=== PATIENT | female | born 1960 | race Two or more races ===

== ENCOUNTER 2022-10-21 07:20 | Outpatient (OUT) | payer OTHER, SELFPAY ==
--- NOTE | 2022-10-21 07:29 | MM_ITS ---
Patient: YOUSUF ANGUIANO V. Exam Date: 10/21/2022 : 1960 Gender:F Ordering : DR NELLY ZEE M.D. Admission #: [id number] Family : Order #: [id number] CLICK HERE TO VIEW EXAM RADIOLOGY REPORT PROCEDURE: MM TOMOSYNTHESIS SCREENING BI COMPARISON: MG MAMM SCREEN 3D HOLLY CAD, 10/16/2020. MG MAMM SCREEN 3D HOLLY CAD, 10/20/2021. INDICATIONS: Screening Calculator Name NCI Breast Cancer Risk Assessment Tool 5 Year Breast Cancer Risk 0.90% Lifetime Breast Cancer Risk 4.30% Personal Breast Cancer No Personal Ovarian Cancer No Treatments None Family Cancers None LOCATION: [facility] BREAST COMPOSITION: Scattered areas fibroglandular density. FINDINGS: DIAGNOSTIC CATEGORY 1--NEGATIVE. NO CHANGE FROM COMPARISON ASSESSMENT. Scattered benign-appearing nodules are present. Scattered benign-appearing calcifications are present. Scattered benign-appearing lymph nodes are present. RIGHT BREAST: No significant suspicious finding. LEFT BREAST: No significant suspicious finding. RECOMMENDATIONS: ROUTINE MAMMOGRAM AND CLINICAL EVALUATION IN 12 MONTHS. PLEASE NOTE: A NORMAL MAMMOGRAM DOES NOT EXCLUDE THE POSSIBILITY OF BREAST CANCER. A CLINICALLY SUSPICIOUS PALPABLE LUMP SHOULD BE BIOPSIED. Dictated by: Julian Casey MD on 10/21/2022 at 09:03 Approved by: Julian Casey MD on 10/21/2022 at 09:10
== END 2022-10-21 07:21 | disposition home or self-care (01) ==
LOC: MAMMO 07:23
PROVIDERS: PCP Family Medicine; Visit Provider Family Medicine
DX: Z12.31 Encounter for screening mammogram for malignant neoplasm of breast (principal)
CPT/HCPCS: 77063; 77067

== ENCOUNTER 2023-08-12 16:51 | Emergency (ER) | payer MEDICARE, SELFPAY ==
[2023-08-12] VITALS (25 sets, daily range): BP systolic 71–126; BP diastolic 47–83; PULSE 81–97; TEMP 36.6; O2SAT 95–99; BMI 27.4
--- NOTE | 2023-08-12 17:23 | ECG_ITS ---
The [facility] Test Date: 2023-08-12 Pat Name: YOUSUF ANGUIANO Department: Room: - Gender: Female Curing Supervisor: : 1960 Requested By: NELLY ZEE Order Number: [id number] Reading MD: TAMMY BAEZ Measurements Intervals [place] Rate: 85 P: 25 [place]: 152 QRS: -42 QRSD: 86 T: 28 QT: 372 QTc: 414 Interpretive Statements 1100 Sinus rhythm 7200 Abnormal left axis deviation 8003 Consistent with pulmonary disease 9150 abnormal ECG Compared to ECG 09/13/2020 16:37:13 No significant changes Electronically Signed On 08-13-2023 7:30:21 EDT by TAMMY BAEZ
--- NOTE | 2023-08-12 17:23 | CT_ITS ---
The [address] [address] Patient Name: YOUSUF ANGUIANO MRN: [id number] date: 1960 Sex: F Assigned Patient Location: ER Current Patient Location: .[facility] Accession/Order Number: [id number] Exam Date: 08/12/2023 17:37 Report Date: 08/12/2023 18:26 At the request of: YOGESH HAQUE Procedure: CT head/brain wo con EXAM: NONCONTRAST CT SCAN OF THE HEAD HISTORY: Headache. TECHNIQUE: Multiple axial images are taken from the level the vertex down to the base of the skull without the use of IV contrast. Images were then reconstructed in the sagittal and coronal planes. This exam was performed according to our departmental dose-optimization program which includes use of Automated Exposure Control, adjustment of the mA and/or kV according to patient size and/or use of iterative reconstruction technique. COMPARISON: None. FINDINGS: Brain Parenchyma: No intracranial mass. No intracranial hemorrhage. Zuniga-white matter within expected limits of normal for patient's age. Posterior fossa: Normal. Midline shift: None Extra-axial fluid collection: None Ventricles: Normal. Mastoid air cells: Normal. Sinuses: Normal. Cranium: No depressed skull fracture. Soft tissues: Normal. Orbits: Orbits demonstrate postoperative changes from prior cataract resection with prosthetic lens implant. CT/CT head/brain wo con IMPRESSION: 1. No noncontrast CT evidence for acute intracranial pathology. 2. If patient continues to have symptoms or if there remains any further clinical concern, MRI may help better delineate if clinically indicated. Electronically authenticated by: CHERIE ROUSE Date: 08/12/2023 18:26
--- NOTE | 2023-08-12 17:24 | ED.SYNCOPE1 ---
HPI - Syncope General Chief Complaint: Dizziness Stated Complaint: Syncope, Dizziness Time Seen by Provider: 08/12/23 16:53 Source: patient Mode of arrival: walk-in Limitations: no limitations History of Present Illness HPI narrative: 63-year-old female presents for syncopal episode. She woke up today with a generalized headache and this afternoon she states she started to get dizzy and felt like she was going to pass out. She states she got herself down to the floor and then passed out for a few minutes. She did not injure herself in any way. She did not have any palpitations or vomiting or diarrhea or abdominal pain. This happened many years ago and she states she was dehydrated at that time. Related Data Home Medications ?Medication ?Instructions ?Recorded ?Confirmed albuterol sulfate 90 mcg/actuation 2 inh inhalation Q4H PRN shortness 08/12/23 08/12/23 aerosol inhaler of breath or wheezing hydrochlorothiazide 25 mg tablet 25 mg PO DAILY 08/12/23 08/12/23 levothyroxine 25 mcg tablet 25 mcg PO DAILY 08/12/23 08/12/23 montelukast 10 mg tablet 10 mg PO DAILY 08/12/23 08/12/23 pantoprazole 40 mg tablet,delayed 40 mg PO DAILY 08/12/23 08/12/23 release rosuvastatin 10 mg tablet 10 mg PO DAILY 08/12/23 08/12/23 Allergies Allergy/AdvReac Type Severity Reaction Status Date / Time No Known Drug Allergies Allergy Verified 08/12/23 17:00 Review of Systems ROS Narrative A ten point review of systems is negative except as noted above. Exam Narrative Exam Narrative: Nurses note and vital signs reviewed and patient is not hypoxic. General: The patient appears well and in no apparent distress. Patient is resting comfortably on cart. Skin: Warm, dry, no pallor noted. There is no rash noted. Head: Normocephalic, atraumatic Eye: Normal conjunctiva, no drainage, EOMI. PERRL Ears, Nose, Mouth, and Throat: oral mucosa is moist. Nares patent. Cardiovascular: Regular Rate and Rhythm Respiratory: Patient is in no distress, no accessory muscle use, lungs are clear to auscultation, no wheezing, rales or rhonchi Back: non-tender GI: no tenderness to palpation, no masses appreciated. No rebound, guarding, or rigidity noted. Musculoskeletal: The patient has no evidence of calf tenderness, no pitting edema, symmetrical pulses noted bilaterally Neurological: A&O, normal speech; upper and lower extremity strength 5 out of 5 and symmetric Psychiatric: Cooperative Constitutional Vital Signs, click to edit/add: Last Vital Signs Temp 97.9 F 08/12/23 16:55 Pulse 83 08/12/23 16:55 Resp 18 08/12/23 16:55 BP 122/80 08/12/23 16:55 Pulse Ox 97 08/12/23 16:55 O2 Del Method Room Air 08/12/23 16:55 Course Vital Signs Vital signs: Vital Signs Temperature 97.9 F 08/12/23 16:55 Pulse Rate 83 08/12/23 16:55 Respiratory Rate 18 08/12/23 16:55 Blood Pressure 122/80 08/12/23 16:55 Pulse Oximetry 97 08/12/23 16:55 Oxygen Delivery Method Room Air 08/12/23 16:55 Temperature 97.9 F 08/12/23 16:55 Pulse Rate 83 08/12/23 16:55 Respiratory Rate 18 08/12/23 16:55 Blood Pressure 122/80 08/12/23 16:55 Pulse Oximetry 97 08/12/23 16:55 Oxygen Delivery Method Room Air 08/12/23 16:55 MDM - Syncope MDM Narrative Medical decision making narrative: The patient presented with a syncopal episode. She is in sinus rhythm. Potassium is low and she was ordered both oral and IV potassium. The patient is being observed and signed out to Dr. Culp. Differential Diagnosis Differential diagnosis: Likely syncope due to orthostatic hypotension, vasovagal syncope and dehydration Lab Data Attestation: I reviewed the patient's lab results. Labs: Lab Results 08/12/23 Range/Units 17:10 WBC 8.4 (4.0-11.0) 10^3/uL RBC 4.27 (4.20-5.40) 10^6/uL Hgb 12.6 (12.0-16.0) g/dL Hct 39.1 (36.0-48.0) % MCV 91.6 (81.0-99.0) fL MCH 29.5 (26.7-34.0) pg MCHC 32.2 (29.9-35.2) g/dL RDW 14.1 (11.0-15.0) % Plt Count 350 (150-450) 10^3/uL MPV 9.2 L (9.5-13.5) fL Neut % (Auto) 72.8 (43.0-75.0) % Lymph % (Auto) 18.6 L (20.5-60.0) % [place] % (Auto) 7.0 (1.7-12.0) % Eos % (Auto) 1.3 (0.9-7.0) % Baso % (Auto) 0.2 (0.2-2.0) % Neut # (Auto) 6.1 (1.4-6.5) 10^3/uL Lymph # (Auto) 1.6 (1.2-3.8) 10^3/uL [place] # (Auto) 0.6 (0.3-0.8) 10^3/uL Eos # (Auto) 0.1 (0.0-0.7) 10^3/uL Baso # (Auto) 0.0 (0.0-0.1) 10^3/uL Abs Immat Gran (auto) 0.01 (0.00-0.03) 10^3/uL Imm/Tot Granulo (auto) 0.1 (0.0-0.5) % Sodium 138 (136-145) mmol/L Potassium 2.5 L* (3.5-5.1) mmol/L Chloride 99 (98-107) mmol/L Carbon Dioxide 30.3 (21.0-32.0) mmol/L Anion Gap 11.2 BUN 14.0 (7.0-18.0) mg/dL Creatinine 1.19 H (0.55-1.02) mg/dL Est GFR ( Amer) 55 L (>=60) Est GFR (Non-Af Amer) 46 L (>=60) BUN/Creatinine Ratio 11.8 Glucose 110 H (74-106) mg/dL Calcium 9.0 (8.5-10.1) mg/dL Troponin I High Sens 4.4 (4.0-51.3) pg/mL ECG Data Attestation: I personally reviewed and interpreted this ECG as follows: (EKG on my interpretation shows normal sinus rhythm without acute change and rate of 85) Discharge Plan Discharge Patient Disposition: Still a Patient
[2023-08-12 17:30] LABS: Basophils Percent Auto 0.2 % (0.2-2.0); Eosinophils Absolute Auto 0.1 10^3/uL (0.0-0.7); Eosinophils Percent Auto 1.3 % (0.9-7.0); Hematocrit 39.1 % (36.0-48.0); Hemoglobin 12.6 g/dL (12.0-16.0); Immature Granulocytes Abs Auto 0.01 10^3/uL (0.00-0.03); Immature Granulocytes Pct Auto 0.1 % (0.0-0.5); Lymphocytes Absolute Auto 1.6 10^3/uL (1.2-3.8); Lymphocytes Percent Auto 18.6 % (20.5-60.0); Mean Corpuscular HGB Conc 32.2 g/dL (29.9-35.2); Mean Corpuscular Hemoglobin 29.5 pg (26.7-34.0); Mean Corpuscular Volume 91.6 fL (81.0-99.0); Mean Platelet Volume 9.2 fL (9.5-13.5); Monocytes Absolute Auto 0.6 10^3/uL (0.3-0.8); Neutrophils Absolute Auto 6.1 10^3/uL (1.4-6.5); Neutrophils Percent Auto 72.8 % (43.0-75.0); Platelet Count 350 10^3/uL (150-450); Red Blood Count 4.27 10^6/uL (4.20-5.40); Red Cell Distribution Width 14.1 % (11.0-15.0); White Blood Count 8.4 10^3/uL (4.0-11.0)
[2023-08-12 17:42] LABS: Anion Gap 11.2; BUN Creatinine Ratio 11.8; Carbon Dioxide 30.3 mmol/L (21.0-32.0); Chloride 99 mmol/L (98-107); Estimated GFR (African America 55 (>=60); Estimated GFR (Non-African Ame 46 (>=60); Glucose 110 mg/dL (74-106); Sodium 138 mmol/L (136-145); Troponin I High Sensitivity 4.4 pg/mL (4.0-51.3)
[2023-08-12 17:44] LABS: Potassium 2.5 mmol/L (3.5-5.1)
[2023-08-12] MEDS: 0.9 % SODIUM CHLORIDE 1,000 ML 1000 ML IV (17:49)
[2023-08-12] MEDS: POTASSIUM CHLORIDE IN WATER 10 MEQ/100 ML PIGGYBACK 100 MEQ IV ×4 (18:34→22:07)
[2023-08-12] MEDS: POTASSIUM BICARBONATE/CIT 25 MEQ TABLET EFF 50 MEQ PO (18:35)
[2023-08-12] MEDS: 0.9 % SODIUM CHLORIDE 1,000 ML 150 ML IV (18:49)
[2023-08-12 19:11] LABS: Bilirubin Urine NEGATIVE (NEGATIVE); Blood Urine NEGATIVE (NEGATIVE); Clarity Urine CLEAR (CLEAR); Color Urine LT. YELLOW (YELLOW); Glucose Urine UA NEGATIVE (NEGATIVE); Ketones Urine NEGATIVE (NEGATIVE); Leukocyte Esterase Urine SMALL (NEGATIVE); Nitrite Urine NEGATIVE (NEGATIVE); Protein Urine NEGATIVE (NEG/TRACE); Specific Gravity Urine <=1.005 (1.005-1.025); Urobilinogen Urine 0.2 EU/dL (0.2-1.0); pH Urine 6.5 (5.0-9.0)
[2023-08-12 19:19] LABS: Bacteria Urine NONE SEEN #/HPF (NONE SEEN); Cast Seen? NONE SEEN #/LPF (NONE SEEN); Crystals Seen? None Seen #/HPF (None Seen); Mucus Urine NONE SEEN (NONE SEEN); RBC Urine 0-2 #/HPF (0-2); Squamous Epithelial Cell Urine FEW #/LPF (NONE/RARE); Urine Culture Indicated NO; WBC Urine 0-2 #/HPF (NONE SEEN)
[2023-08-12] MEDS: 0.9 % SODIUM CHLORIDE 1,000 ML 999 ML IV (21:22)
== END 2023-08-13 00:09 | disposition home or self-care (01) ==
PROVIDERS: Emergency Medicine; Emergency Provider Internal Medicine; PCP Family Medicine
DX: R55 Syncope and collapse (principal); E86.0 Dehydration; E87.6 Hypokalemia; Z79.899 Other long term (current) drug therapy; Z79.890 Hormone replacement therapy
CPT/HCPCS: 36415; 70450; 80048; 81001; 84484; 85025; 93005; 96361; 96365; 96366; 99285

== ENCOUNTER 2023-10-27 06:44 | Outpatient (OUT) | payer MEDICARE, SELFPAY ==
--- NOTE | 2023-10-27 06:46 | MM_ITS ---
Patient Name: YUOSUF ANGUIANO MR#: [id number] : 1960 Exam Date: 10/27/2023 Ordering Doctor: DR NELLY ZEE M.D. RADIOLOGY REPORT PROCEDURE: MM TOMOSYNTHESIS SCREENING BI COMPARISON: MM TOMOSYNTHESIS SCREENING BI, 10/21/2022. MG MAMM SCREEN 3D HOLLY CAD, 10/20/2021. INDICATIONS: Screening Calculator Name NCI Breast Cancer Risk Assessment Tool 5 Year Breast Cancer Risk 0.90% Lifetime Breast Cancer Risk 4.20% Personal Breast Cancer No Personal Ovarian Cancer No Treatments None Family Cancers None LOCATION: [facility] BREAST COMPOSITION: There are scattered areas of fibroglandular density. FINDINGS: DIAGNOSTIC CATEGORY 1--NEGATIVE. NO CHANGE FROM COMPARISON ASSESSMENT. Scattered benign-appearing nodules are present. Scattered benign-appearing calcifications are present. Scattered benign-appearing lymph nodes are present. RIGHT BREAST: No significant suspicious finding. LEFT BREAST: No significant suspicious finding. RECOMMENDATIONS: ROUTINE MAMMOGRAM AND CLINICAL EVALUATION IN 12 MONTHS. PLEASE NOTE: A NORMAL MAMMOGRAM DOES NOT EXCLUDE THE POSSIBILITY OF BREAST CANCER. A CLINICALLY SUSPICIOUS PALPABLE LUMP SHOULD BE BIOPSIED. Dictated by: Julian Casey MD on 10/30/2023 at 07:20 Approved by: Julian Casey MD on 10/30/2023 at 07:21
== END 2023-10-27 06:45 | disposition home or self-care (01) ==
LOC: MAMMO 06:44
PROVIDERS: PCP Family Medicine; Visit Provider Family Medicine
DX: Z12.31 Encounter for screening mammogram for malignant neoplasm of breast (principal)
CPT/HCPCS: 77063; 77067

== ENCOUNTER 2023-11-10 06:59 | Outpatient (OUT) | payer MEDICARE, SELFPAY ==
--- NOTE | 2023-11-10 07:05 | MR_ITS ---
The [address] [address] Patient Name: YOUSUF ANGUIANO MRN: [id number] date: 1960 Sex: F Assigned Patient Location: MRI Current Patient Location: Accession/Order Number: [id number] Exam Date: 11/10/2023 07:05 Report Date: 11/13/2023 08:09 At the request of: DORITA DYE Procedure: MR lumbar spine wo con EXAMINATION: MR lumbar spine wo con HISTORY: inflammation of right SI joint M46.1 COMPARISON: No relevant comparison available. TECHNIQUE: A variety of imaging planes and parameters were utilized for visualization of suspected pathology. FINDINGS: For the purposes of numbering, sagittal T2 image # 8 extends from the T10 vertebral body superiorly to the S4 level inferiorly. PARASPINAL AREA: Normal with no visible mass. BONES: Normal alignment of the lumbar vertebral bodies with no acute fracture, dislocation or bone edema CORD/CAUDA EQUINA: Normal caliber, contour, and signal intensity. DISC LEVELS: 12-L1: No significant disc/facet abnormality, spinal stenosis, or foraminal stenosis. L1-L2: No significant disc/facet abnormality, spinal stenosis, or foraminal stenosis. L2-L3: Early degenerative disc disease is present without focal protrusion or neural impingement. L3-L4: No significant disc/facet abnormality, spinal stenosis, or foraminal stenosis. L4-L5: Early degenerative disc disease is present without focal protrusion or neural impingement. L5-S1: Early degenerative disc disease is present without focal protrusion or neural impingement. MR/MR lumbar spine wo con IMPRESSION: Mild discogenic changes with no no disc bulge or herniation, now significant central or foraminal stenosis Electronically authenticated by: KINGSLEY BURNETTE Date: 11/13/2023 08:09
== END 2023-11-10 07:00 | disposition home or self-care (01) ==
LOC: MRI 06:59
PROVIDERS: PCP Family Medicine; Visit Provider Nurse Practitioner Adult Health
DX: M46.1 Sacroiliitis, not elsewhere classified (principal); R20.9 Unspecified disturbances of skin sensation
CPT/HCPCS: 72148

== ENCOUNTER 2024-01-16 08:35 | Outpatient (OUT) | payer MEDICARE, SELFPAY ==
[2024-01-16 08:53] LABS: Basophils Percent Auto 0.4 % (0.2-2.0); Eosinophils Absolute Auto 0.1 10^3/uL (0.0-0.7); Eosinophils Percent Auto 1.8 % (0.9-7.0); Hematocrit 40.3 % (36.0-48.0); Hemoglobin 12.7 g/dL (12.0-16.0); Immature Granulocytes Abs Auto 0.01 10^3/uL (0.00-0.03); Immature Granulocytes Pct Auto 0.1 % (0.0-0.5); Lymphocytes Absolute Auto 2.4 10^3/uL (1.2-3.8); Lymphocytes Percent Auto 32.9 % (20.5-60.0); Mean Corpuscular HGB Conc 31.5 g/dL (29.9-35.2); Mean Platelet Volume 8.6 fL (9.5-13.5); Monocytes Absolute Auto 0.4 10^3/uL (0.3-0.8); Neutrophils Absolute Auto 4.3 10^3/uL (1.4-6.5); Neutrophils Percent Auto 58.8 % (43.0-75.0); Platelet Count 386 10^3/uL (150-450); Red Blood Count 4.24 10^6/uL (4.20-5.40); Red Cell Distribution Width 14.3 % (11.0-15.0); White Blood Count 7.4 10^3/uL (4.0-11.0)
[2024-01-16 09:24] LABS: Alanine Aminotransferase 24 U/L (14-59); Albumin Globulin Ratio 0.8; Albumin Level 3.3 g/dL (3.4-5.0); Alkaline Phosphatase 76 U/L (46-116); Anion Gap 7.2; Aspartate Amino Transferase 20 U/L (15-37); BUN Creatinine Ratio 10.7; Bilirubin Total 0.4 mg/dL (0.2-1.0); Calcium 9.3 mg/dL (8.5-10.1); Carbon Dioxide 33.6 mmol/L (21.0-32.0); Chloride 100 mmol/L (98-107); Chol HDL Ratio 2.3; Cholesterol 185 mg/dL (<=200); Estimated GFR (African America >60 (>=60); Estimated GFR (Non-African Ame 54 (>=60); Globulin 4.2 g/dL; Glucose 113 mg/dL (74-106); HDL Cholesterol 80 mg/dL (40-60); Sodium 138 mmol/L (136-145); TSH W/ REFLEX FT4 1.543 uIU/mL (0.358-3.740); Total Protein 7.5 g/dL (6.4-8.2); Triglycerides 109 mg/dL (<=150); VLDL CHOLESTEROL 21.8 mg/dL
[2024-01-16 10:12] LABS: Potassium 2.8 mmol/L (3.5-5.1)
[2024-01-17 05:08] LABS: HCV Ab Non Reactive (Non Reactive)
== END 2024-01-16 08:36 | disposition home or self-care (01) ==
LOC: LAB 08:35
PROVIDERS: PCP Family Medicine; Visit Provider Physician Assistant
DX: Z00.00 Encounter for general adult medical examination without abnormal findings (principal); E03.9 Hypothyroidism, unspecified; I12.9 Hypertensive chronic kidney disease with stage 1 through stage 4 chronic kidney disease, or unspecified chronic kidney disease; E78.00 Pure hypercholesterolemia, unspecified; N18.31 Chronic kidney disease, stage 3a
CPT/HCPCS: 36415; 80053; 80061; 84443; 85025; 87522

== ENCOUNTER 2024-01-25 07:40 | Outpatient (OUT) | payer MEDICARE, SELFPAY ==
--- OUTSIDE RECORDS SUMMARY | 2024-01-25 07:41 | XMS_ITS | CCD ---
Author Organization [facility] Care Team Providers Care Adobe Layer Helper Name Role Phone YAYO, DR VILLEGAS Primary Care Unavailable HEMMER, DR DARRYL Thomas Admitting Unavailable HEMMER, DR DARRYL Thomas Attending Unavailable YAYO, DR VILLEGAS Primary Care Unavailable YAYO, DR VILLEGAS Admitting Unavailable YAYO, DR VILLEGAS Attending Unavailable YAYO, DR VILLEGAS Consulting Unavailable WEST, DR KINGSLEY Pierson Consulting Unavailable YAYO, DR VILLEGAS Primary Care Unavailable YAYO, DR VILLEGAS Admitting Unavailable YAYO, DR VILLEGAS Attending Unavailable YYAO, DR VILLEGAS Consulting Unavailable HEMMER, DR DARRYL Thomas Attending Unavailable HEMMER, DR DARRYL Thomas Admitting Unavailable YAYO, DR VILLEGAS Primary Care Unavailable HENRIKZENAIDA Attending Unavailable ERROL BURGESS Attending Unavailable DORITA DYE Attending Unavailable ERROL BURGESS Referring Unavailable SANDEEP HARRELL Attending Unavailable DORITA DYE Attending Unavailable DARRYL MCDERMOTT Attending Unavailable Donaldo Mills Attending Unavailable Donaldo Mills Referring Unavailable Problems Active Problems Problem Classification Problem Date Documented Da te Episodic/Chronic Cataract (1 source) Presence of intraocular lens; Translations: [Pseudophakia] Onset: 01-19-2024 Chronic Other screening for suspected conditions (not mental disorders or infectious disease) (4 sources) Encounter for screening mammogram for malignant neoplasm of breast; Translations: [ENC SCR MAMMO MALIG NEOPLASM BREAST] Onset: 10-20-2021 Episodic Residual codes; unclassified (4 sources) Obstructive sleep apnea (adult) (pediatric); Translations: [OBSTRUCTIVE SLEEP APNEA] Onset: 03-22-2021 Chronic Retinal detachments; defects; vascular occlusion; and retinopathy (1 source) Pigmentary retinal dystrophy; 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 Exam Date: 10/20/2021 : 1960 Gender:F Ordering : DR NELLY ZEE M.D. Admission #: [id number] Family : Order #: [id number] CLICK HERE TO VIEW EXAM RADIOLOGY REPORT PROCEDURE: MAMMOGRAM SCREENING 3D BILATERAL CAD COMPARISON: MG MAMM SCREEN HOLLY W CAD, 10/15/2019. MG MAMM SCREEN 3D HOLLY CAD, 10/16/2020. INDICATIONS: Screening mammography Calculator Name NCI Breast Cancer Risk Assessment Tool 5 Year Breast Cancer Risk 0.90% Lifetime Breast Cancer Risk 4.40% Personal Breast Cancer No Personal Ovarian Cancer No Treatments None Family Cancers None LOCATION: [facility] BREAST COMPOSITION: Scattered areas fibroglandular density. FINDINGS: DIAGNOSTIC CATEGORY 1--NEGATIVE. NO CHANGE FROM COMPARISON ASSESSMENT. Scattered benign-appearing nodules are present. Scattered benign-appearing calcifications are present. Scattered benign-appearing lymph nodes are present. RIGHT BREAST: No significant suspicious finding. LEFT BREAST: No significant suspicious finding. RECOMMENDATIONS: ROUTINE MAMMOGRAM AND CLINICAL EVALUATION IN 12 MONTHS. PLEASE NOTE: A NORMAL MAMMOGRAM DOES NOT EXCLUDE THE POSSIBILITY OF BREAST CANCER. A CLINICALLY SUSPICIOUS PALPABLE LUMP SHOULD BE BIOPSIED. Dictated by: Kingsley Casey MD on 10/20/2021 at 09:49 Approved by: Kingsley Casey MD on 10/20/2021 at 09:58 Normal [facility] TSH w/ Reflex to Free T4on 0 09-07-2021 TSH 1.990 uIU/mL Normal 0.400-4.500 [facility] [employer] Comment on above: Performed By: #### T SH reflex FT4 #### [facility] [address] [place], [place] [id number] Complete Blood Count with Au to Diffon 04-05-2022 Basophils (Bld) [#/Vol] 0.05 10*3/uL Normal 0.00-0.20 [facility] [employer] Comment on above: Performed By: #### L IPD, TSH reflex FT4, CMP, FT4, CBCAD #### [facility] [address], [place] [id number] Basophils/100 WBC (Bld) 0.9 % Normal [facility] [employer] Comment on above: Performed By: #### L IPD, TSH reflex FT4, CMP, FT4, CBCAD #### [facility] [address], [place] [id number] Eosinophils (Bld) [#/Vol] 0.41 10*3/uL Normal 0.02-0.50 [facility] [employer] Comment on above: Performed By: #### L IPD, TSH reflex FT4, CMP, FT4, CBCAD #### [facility] [address], [place] [id number] Eosinophils/100 WBC (Bld) 7.2 % Normal [facility] [employer] Comment on above: Performed By: #### L IPD, TSH reflex FT4, CMP, FT4, CBCAD #### [facility] [address], [place] [id number] Erythrocyte distribution width (RBC) [Ratio] 13.4 % Normal 11.0-15.0 [facility] [employer] Comment on above: Performed By: #### L IPD, TSH reflex FT4, CMP, FT4, CBCAD #### [facility] [address], [place] [id number] Hematocrit (Bld) [Volume fraction] 41.2 % Normal 35.0-47.0 [facility] [employer] Comment on above: Performed By: #### L IPD, TSH reflex FT4, CMP, FT4, CBCAD #### [facility] [address], [place] [id number] Hemoglobin (Bld) [Mass/Vol] 13.1 g/dL Normal 11.6-15.5 [facility] Comment on above: Performed By: #### L IPD, TSH reflex FT4, CMP, FT4, CBCAD #### [facility] [address], [place] [id number] Lymphocytes (Bld) [#/Vol] 1.8 10*3/uL Normal 0.9-3.9 [facility] Comment on above: Performed By: #### L IPD, TSH reflex FT4, CMP, FT4, CBCAD #### [facility] [address], [place] [id number] Lymphocytes/100 WBC (Bld) 31.8 % Normal [facility] Comment on above: Performed By: #### L IPD, TSH reflex FT4, CMP, FT4, CBCAD #### [facility] [address], [place] [id number] MCH (RBC) [Entitic mass] 29.3 pg Normal 27.0-33.0 [facility] Comment on above: Performed By: #### L IPD, TSH reflex FT4, CMP, FT4, CBCAD #### [facility] [address], [place] [id number] MCHC (RBC) [Mass/Vol] 31.8 g/dL Low 32.0-36.0 [facility] Comment on above: Performed By: #### L IPD, TSH reflex FT4, CMP, FT4, CBCAD #### [facility] [address], [place] [id number] MCV (RBC) [Entitic vol] 92 fL Normal 80-100 [facility] Comment on above: Performed By: #### L IPD, TSH reflex FT4, CMP, FT4, CBCAD #### [facility] [address], [place] [id number] Monocytes (Bld) [#/Vol] 0.5 10*3/uL Normal 0.2-0.9 [facility] Comment on above: Performed By: #### L IPD, TSH reflex FT4, CMP, FT4, CBCAD #### [facility] [address], [place] [id number] Monocytes/100 WBC (Bld) 8.1 % Normal [facility] Comment on above: Performed By: #### L IPD, TSH reflex FT4, CMP, FT4, CBCAD #### [facility] [address], [place] [id number] Neutrophils (Bld) [#/Vol] 3.0 10*3/uL Normal 1.5-7.8 [facility] Comment on above: Performed By: #### L IPD, TSH reflex FT4, CMP, FT4, CBCAD #### [facility] [address], [place] [id number] Neutrophils/100 WBC (Bld) 51.6 % Normal [facility] Comment on above: Performed By: #### L IPD, TSH reflex FT4, CMP, FT4, CBCAD #### [facility] [address], [place] [id number] Platelet mean volume (Bld) [Entitic vol] 9.50 fL Normal 7.50-12.50 [facility] Comment on above: Performed By: #### L IPD, TSH reflex FT4, CMP, FT4, CBCAD #### [facility] [address], [place] [id number] Platelets (Bld) [#/Vol] 367 10*3/uL Normal 140-400 [facility] Comment on above: Performed By: #### L IPD, TSH reflex FT4, CMP, FT4, CBCAD #### [facility] [address], [place] [id number] RBC (Bld) [#/Vol] 4.47 10*6/uL Normal 3.90-5.20 [facility] Comment on above: Performed By: #### L IPD, TSH reflex FT4, CMP, FT4, CBCAD #### [facility] [address], [place] [id number] RDW-SD 45.9 fL Normal 37.0-50.0 [facility] Comment on above: Performed By: #### L IPD, TSH reflex FT4, CMP, FT4, CBCAD #### [facility] [address], [place] [id number] WBC (Bld) [#/Vol] 5.7 10*3/uL Normal 3.8-11.0 [facility] Comment on above: Performed By: #### L IPD, TSH reflex FT4, CMP, FT4, CBCAD #### [facility] [address], [place] [id number] Comprehensive Metabolic Pane félix 07-27-2021 Albumin [Mass/Vol] 4.5 g/dL Normal 3.6-5.1 [facility] Comment on above: Performed By: #### L IPD, TSH reflex FT4, CMP, FT4, CBCAD #### [facility] [address], [place] [id number] Albumin/Globulin [Mass ratio] 1.7 {ratio} Normal 1.0-2.5 [facility] Comment on above: Performed By: #### L IPD, TSH reflex FT4, CMP, FT4, CBCAD #### [facility] [address], [place] [id number] ALP [Catalytic activity/Vol] 89 U/L Normal 35-119 [facility] Comment on above: Performed By: #### L IPD, TSH reflex FT4, CMP, FT4, CBCAD #### [facility] [address], [place] [id number] ALT [Catalytic activity/Vol] 27 U/L Normal 6-33 [facility] Comment on above: Result Comment: 03/24 Female reference range changed. Performed By: #### L IPD, TSH reflex FT4, CMP, FT4, CBCAD #### [facility] [address], [place] [id number] Anion gap [Moles/Vol] 18 mmol/L Normal 12-20 [facility] Comment on above: Result Comment: Effe ctive 04/29/2019 reference range changed. Performed By: #### L IPD, TSH reflex FT4, CMP, FT4, CBCAD #### [facility] [address], [place] [id number] AST [Catalytic activity/Vol] 25 U/L Normal 9-34 [facility] Comment on above: Performed By: #### L IPD, TSH reflex FT4, CMP, FT4, CBCAD #### [facility] [address], [place] [id number] BUN/CREA 22 Ratio Normal 6-22 [facility] Comment on above: Performed By: #### L IPD, TSH reflex FT4, CMP, FT4, CBCAD #### [facility] [address], [place] [id number] Calcium [Mass/Vol] 9.5 mg/dL Normal 8.6-10.2 [facility] Comment on above: Performed By: #### L IPD, TSH reflex FT4, CMP, FT4, CBCAD #### [facility] [address], [place] [id number] Chloride [Moles/Vol] 102 mmol/L Normal 98-107 [facility] Comment on above: Performed By: #### L IPD, TSH reflex FT4, CMP, FT4, CBCAD #### [facility] [address], [place] [id number] CO2 [Moles/Vol] 26 mmol/L Normal 20-31 [facility] Comment on above: Performed By: #### L IPD, TSH reflex FT4, CMP, FT4, CBCAD #### [facility] [address], [place] [id number] Creatinine [Mass/Vol] 1.0 mg/dL Normal 0.6-1.4 [facility] Comment on above: Performed By: #### L IPD, TSH reflex FT4, CMP, FT4, CBCAD #### [facility] [address], [place] [id number] eGFRAA 72 mL/min/1.73m2 Normal >60 [facility] Comment on above: Performed By: #### L IPD, TSH reflex FT4, CMP, FT4, CBCAD #### [facility] [address], [place] [id number] eGFRNAA 60 mL/min/1.73m2 Low >60 [facility] Comment on above: Performed By: #### L IPD, TSH reflex FT4, CMP, FT4, CBCAD #### [facility] [address], [place] [id number] Globulin (S) [Mass/Vol] 2.6 g/dL Normal 1.9-3.7 [facility] Comment on above: Performed By: #### L IPD, TSH reflex FT4, CMP, FT4, CBCAD #### [facility] [address], [place] [id number] Glucose [Mass/Vol] 110 mg/dL High 65-99 Carmelo patiño [place] [employer] Comment on above: Result Comment: For FASTING Glucose --- ADA reference ranges: Normal 65-99 mg/dl Prediabetes 100-125 Diabetes >/= 126 Performed By: #### L IPD, TSH reflex FT4, CMP, FT4, CBCAD #### [facility] [address], [place] [id number] Potassium [Moles/Vol] 3.5 mmol/L Normal 3.5-5.5 [facility] [employer] Comment on above: Performed By: #### L IPD, TSH reflex FT4, CMP, FT4, CBCAD #### [facility] [address], [place] [id number] Protein [Mass/Vol] 7.1 g/dL Normal 6.1-8.1 Carmelo patiño [place] [employer] Comment on above: Performed By: #### L IPD, TSH reflex FT4, CMP, FT4, CBCAD #### [facility] [address], [place] [id number] Sodium [Moles/Vol] 142 mmol/L Normal 135-146 Carmelo patiño [place] [employer] Comment on above: Performed By: #### L IPD, TSH reflex FT4, CMP, FT4, CBCAD #### [facility] [address], [place] [id number] TBIL <0.3 Normal [facility] [employer] Comment on above: Performed By: #### L IPD, TSH reflex FT4, CMP, FT4, CBCAD #### [facility] [address], [place] [id number] Urea nitrogen [Mass/Vol] 21 mg/dL Normal 7-25 [facility] [employer] Comment on above: Performed By: #### L IPD, TSH reflex FT4, CMP, FT4, CBCAD #### [facility] [address], [place] [id number] Free T4on 07-27-2021 Free T4 [Mass/Vol] 1.17 ng/dL Normal 0.80-1.80 Carmelo patiño [place] [employer] Comment on above: Performed By: #### L IPD, TSH reflex FT4, CMP, FT4, CBCAD #### [facility] [address], [place] [id number] Lipid Panelon 07-27-2021 Cholesterol [Mass/Vol] 256 mg/dL High 125-200 [facility] Comment on above: Result Comment: Low risk < 200mg/dL Borderline risk 201-239 mg/dl High risk > or equal to 240 Performed By: #### L IPD, TSH reflex FT4, CMP, FT4, CBCAD #### [facility] [address], [place] [id number] Cholesterol in HDL [Mass/Vol] 68 mg/dL Normal >40 [facility] [employer] Comment on above: Result Comment: High Cardiovascular Risk HDL <40 mg/dL Low Cardiovascular Risk HDL > or equal to 60 mg/dl Performed By: #### L IPD, TSH reflex FT4, CMP, FT4, CBCAD #### [facility] [address], [place] [id number] Cholesterol in LDL [Mass/Vol] 170 mg/dL Normal [facility] Comment on above: Result Comment: LDL ATP III CLASSIFICATION LDL less than 100 mg/dl Optimal LDL 100-129 mg/dl Near or above optimal LDL 130-159 Borderline high LDL 160-189 High LDL greater than 189 mg/dl Very High Performed By: #### L IPD, TSH reflex FT4, CMP, FT4, CBCAD #### [facility] [address], [place] [id number] Cholesterol in VLDL [Mass/Vol] 18 mg/dL Normal [facility] Comment on above: Performed By: #### L IPD, TSH reflex FT4, CMP, FT4, CBCAD #### [facility] [address], [place] [id number] Cholesterol.total/C holesterol in HDL [Mass ratio] 4 {ratio} Normal [facility] Comment on above: Performed By: #### L IPD, TSH reflex FT4, CMP, FT4, CBCAD #### [facility] [address], [place] [id number] Triglyceride [Mass/Vol] 89 mg/dL Normal 30-150 [facility] [employer] Comment on above: Result Comment: TRIG ATPIII CLASSIFICATIONS TRIG less than 150 mg/dl Normal TRIG 150-199 mg/dl Borderline High TRIG 200-500 mg/dl High TRIG greather than 500 mg/dl Very High Performed By: #### L IPD, TSH reflex FT4, CMP, FT4, CBCAD #### [facility] [address], [place] [id number] TSH w/ Reflex to Free T4on 0 07-27-2021 FT4 reflex Free T4 Normal [facility] [employer] Comment on above: Performed By: #### L IPD, TSH reflex FT4, CMP, FT4, CBCAD #### [facility] [address], [place] [id number] TSH 6.030 uIU/mL High 0.400-4.500 [facility] [employer] Comment on above: Performed By: #### L IPD, TSH reflex FT4, CMP, FT4, CBCAD #### [facility] [address], [place] [id number] Covid-19 PCR ([facility])on SARS-CoV-2 (COVID-19) RNA IVAN+probe Ql (Unsp spec) Not detected Normal NOT DETECTED [facility] Comment on above: Result Comment: This test is not yet approved or cleared by the [place] FDA. When there are no FDA-approved or cleared tests available, and other criteria are met, FDA can make tests available under an emergency access mechanism called an Emergency Use Authorization (EUA). The EUA for this test is supported by the Mechanical Technician of Health and Human Service's (HHS's) declaration that circumstances exist to justify the emergency use of in vitro diagnostics for the detection and/or diagnosis of the virus that causes COVID-19. This EUA will remain in effect (meaning this test can be used) for the duration of the COVID-19 declaration justifying emergency of IVDs, unless it is terminated or revoked by FDA (after which the test may no longer be used). When diagnostic testing is negative, the possibility of a false negative should be considered in the context of a patient's recent exposures and the presence of clinical signs and symptoms consistent with SARS-CoV-2. Performed By: #### C VDTBH #### [facility] [address] [address] [address] Dontae Toth Encounters Encounter Date Encounter Type Care Provider Facility Start: 01-19-2024 Office outpatient vi sit 15 minutes Donaldo Mills [facility] Start: 01-19-2024 ambulatory Donaldo Loi [facility] Start: 01-10-2024 End: 01-10-2024 ambulatory DARRYL MCDERMOTT Not Available Start: 11-02-2023 End: 11-02-2023 ambulatory DORITA BETANCOURTNAGEL Not Available Start: 10-31-2023 End: 10-31-2023 ambulatory SANDEEP HARRELL Not Available Start: 10-05-2023 End: 10-05-2023 ambulatory DORITA BETANCOURTNAGEL Not Available Start: 09-14-2023 End: 09-14-2023 ambulatory ERROL BURGESS Not Available Start: 08-16-2023 End: 08-16-2023 ambulatory ZENAIDA CHESTER Not Available Start: 10-20-2021 End: 10-21-[address] NELLY ZEE Facility:[facility] Start: 03-22-2021 End: 03-23-[address] NELLY ZEE Facility:[facility] Start: 02-22-2021 End: 02-23-[address] DARRYL MCDERMOTT Facility:[facility] Start: 01-22-2021 End: 01-22-[address] NELLY ZEE Facility:[facility] Procedures Date Procedure Procedure Detail Performing Clinician Start: 01-19-2024 Computerized ophthal sharon imaging retina Donaldo Mills Start: 01-19-2024 Fundus Photos No Charge Donaldo Mills Payers Date Payer Category Payer Medicare [id number] 1960 Unknown [id number] 2.16.84 [id number] 1960 Unknown [id number] 2.16.84 [id number] 1960 Unknown [id number] 2.16.84 [id number] 1960 Unknown [id number] 2.16.84 0.1.534843.3.579.2.593 1960 Unknown [id number] 2.16.84 0.1.138331.3.579.2.9 1960 Unknown [id number] 2.16.84 0.1.228283.3.579.2.1258 1960 Unknown [id number] 2.16.84 0.1.071186.3.579.2.1258 1960 Unknown [id number] 2.16.84 0.1.136931.3.579.2.1258 1960 Unknown [id number] 2.16.84 0.1.519238.3.579.2.1258 1960 Unknown [id number] 2.16.84 0.1.862141.3.579.2.1258 1960 Unknown [id number] 2.16.840 .1.102058.3.579.2.1347 1959 Unknown [id number] Summary Purpose Family History No Family History Records FoundNo Family History Records FoundNo Family History Records FoundNo Family History Records Found Advance Directives No Advanced Directives Records FoundNo Advanced Directives Records FoundNo Advanced Directives Records FoundNo Advanced Directives Records Found Additional Source Comments INFORMATION SOURCE (unrecogn ized section and content) DATE CREATED AUTHOR 09/10/2021 [facility] dical Specialist DATE CREATED AUTHOR AUTHOR'S ORGANIZ ATION 10/23/2021 [facility] DATE CREATED AUTHOR AUTHOR'S ORGANIZ ATION 01/13/2024 [facility] dical Specialists [facility] DATE CREATED AUTHOR AUTHOR'S ORGANIZ ATION 01/24/2024 [facility] nstitute FOR RECORDS PERTAINING TO PATIENTS WHO ARE OR HAVE BEEN ENROLLED IN A CHEMICAL DEPENDENCY/SUBSTANCEABUSE PROGRAM, SOME INFORMATION MAY BE OMITTED. This clinical summary was aggregated from multiple sources. Caution should be exercised in using it in the provision of clinical care. This summary normalizes information from multiple sources, and as a consequence, information in this document may materially change the coding, format and clinical context of patient data. In addition, data may be omitted in some cases. CLINICAL DECISIONS SHOULD BE BASED ON THE PRIMARY CLINICAL RECORDS. [facility] [employer] provides no warranty or guarantee of the accuracy or completeness of information in this document.
[2024-01-25 08:52] LABS: Anion Gap 14.2; BUN Creatinine Ratio 14.4; Calcium 9.4 mg/dL (8.5-10.1); Carbon Dioxide 26.3 mmol/L (21.0-32.0); Chloride 101 mmol/L (98-107); Estimated GFR (African America 56 (>=60 mL/min/1.73m^2); Estimated GFR (Non-African Ame 46 (>=60 mL/min/1.73m^2); Glucose 108 mg/dL (74-106); Potassium 3.5 mmol/L (3.5-5.1); Sodium 138 mmol/L (136-145)
== END 2024-01-25 07:41 | disposition home or self-care (01) ==
LOC: LAB 07:40
PROVIDERS: PCP Family Medicine; Visit Provider Physician Assistant
DX: E87.6 Hypokalemia (principal)
CPT/HCPCS: 36415; 80048

== ENCOUNTER 2024-06-14 10:20 | Outpatient (OUT) | payer MEDICARE, SELFPAY ==
--- OUTSIDE RECORDS SUMMARY | 2024-06-14 10:24 | XMS_ITS | CCD ---
Author Organization [facility] Care Team Providers Care Chief Executive Or Managing Director Name Role Phone YAYO, DR VILLEGAS Primary Care Unavailable HEMMER, DR FRANNY Thomas Admitting Unavailable HEMMER, DR FARNNY Thomas Attending Unavailable YAYO, DR VILLEGAS Primary Care Unavailable YAYO, DR VILLEGAS Admitting Unavailable YAYO, DR VILLEGAS Attending Unavailable YAYO, DR VILLEGAS Consulting Unavailable WEST, DR KINGSLEY Pierson Consulting Unavailable YAYO, DR VILLEGAS Primary Care Unavailable YAYO, DR VILLEGAS Admitting Unavailable YAYO, DR VILLEGAS Attending Unavailable YAYO, DR VILLEGAS Consulting Unavailable HEMMER, DR FRANNY Thomas Attending Unavailable HEMMER, DR FRANNY Thomas Admitting Unavailable YAYO, DR VILLEGAS Primary Care Unavailable Donaldo Mills Attending Unavailable Donaldo Mills Referring Unavailable Erika Zee MD Primary Care Provider Zenaida Rangel NP Unavailable Dorita Dye NP Unavailable [phone] Erika Zee MD Primary Care Provider Sivakumar Juárez MD Attending Provider [phone] Sivakumar Juárez Attending Unavailable Franck, Sivakumar Admitting Unavailable Erika Zee Primary Care Unavailable Monday PERINATAL DIRECTOR, Bina Unavailable FRANNY MCDERMOTT Attending Unavailable ZENAIDA RANGEL Attending Unavailable ERROL BURGESS Attending Unavailable DORITA DYE Attending Unavailable ERROL BURGESS Referring Unavailable SANDEEP HARRELL Attending Unavailable DORITA DYE Attending Unavailable FRANNY MCDERMOTT Attending Unavailable FRANNY MCDERMOTT Attending Unavailable Jerry LUNA, Rosa Unavailable Medications Current Medications Medication Drug Class(es) Dates Sig (Normalized) Sig (Original) [id number] 200 actuat albuterol 0.09 mg/actuat metered dose inhaler (14 sources) beta2-Adrenergic Agonist Start: 02-08-2024 take 2 puff(s) by inhalation every four hours for wheezing albuterol HFA (Ventolin HFA) 90 mcg/act inhaler Indications: Moderate persistent asthma without complication (CMS/HCC) Inhale 2 puffs every 4 (four) hours if needed for wheezing or shortness of breath 18 g 5 02/08/2024 Active Start: 10-30-2023 take 2 puff(s) by in halation every four hours for wheezing albuterol HFA (Ventolin HFA) 90 mcg/act inhaler Indications: Moderate persistent asthma without complication (CMS/HCC) Inhale 2 puffs every 4 (four) hours if needed for wheezing or shortness of breath 18 g 5 10/30/2023 Active Start: 06-06-2019 take 2.5 mg by inhal ation every four hours as needed Albuterol Sulfate 1.25 mg/3 mL Solution For Nebulization Active 2.5 MG INHALATION Q4H as needed for Allergic Reaction June 06, 2019 12:00am busPIRone hydrochloride 5 mg oral tablet (2 sources) Start: 06-10-2024 take 1 tablet by mouth twice daily as needed for anxiety busPIRone (Buspar) 5 MG tablet Indications: Stress reaction Take 1 tablet (5 mg) by mouth 2 (two) times a day as needed (Anxiety) 60 tablet 2 06/10/2024 Active Start: 06-10-2024 take 1 tablet by hermelinda twice daily as needed for anxiety busPIRone (Buspar) 5 MG tablet Indications: Stress reaction Take 1 tablet (5 mg) by mouth 2 (two) times a day as needed (Anxiety) 60 tablet 2 06/10/2024 Active chlorhexidine gluconate 1.2 mg/ml mouthwash (13 sources) Start: 01-03-2024 chlorhexidine (Peridex) 0.12 % solution Use 15 mL in the mouth or throat if needed for wound care 01/03/2024 Active cyclobenzaprine hydrochloride 10 mg oral tablet (2 sources) Muscle Relaxant take 1 tablet by mouth three times daily as needed for muscle spasms cyclobenzaprine (Flexeril) 10 MG tablet Take 10 mg by mouth 3 (three) times a day as needed for muscle spasms Active diphenhydrAMINE hydrochloride 25 mg oral tablet (1 source) Histamine-1 Receptor Antagonist Start: 06-06-2019 take 1 tablet by mouth every eight hours as needed Diphenhydramine Hcl (Benadryl Allergy) 25 mg Tablet Active 25 MG PO Q8H as needed for Allergy Symptoms June 06, 2019 12:00am hydroCHLOROthiazide 25 mg oral tablet (14 sources) Thiazide Diuretic Start: 06-06-2019 take 1 tablet by mouth once daily hydroCHLOROthiazide (HYDRODiuril) 25 MG tablet Indications: Benign hypertension (CMS/HCC) Take 1 tablet (25 mg) by mouth Daily 100 tablet 3 02/08/2024 Active levothyroxine sodium 0.025 mg oral tablet (14 sources) l-Thyroxine Start: 03-15-2024 take 1 tablet by mouth in the morning levothyroxine (Synthroid, Levoxyl) 25 MCG tablet Indications: Acquired hypothyroidism (CMS/HCC) Take 1 tablet (25 mcg) by mouth in the morning. Take on an empty stomach.. 100 tablet 3 03/15/2024 Active Start: 10-30-2023 take 1 tablet by hermelinda th in the morning levothyroxine (Synthroid, Levoxyl) 25 MCG tablet Indications: Acquired hypothyroidism (CMS/HCC) Take 1 tablet (25 mcg) by mouth in the morning. Take on an empty stomach.. 90 tablet 1 10/30/2023 Active montelukast 10 mg oral tablet (14 sources) Leukotriene Receptor Antagonist Start: 06-06-2019 take 1 tablet by mouth at bedtime montelukast (Singulair) 10 MG tablet Indications: Seasonal allergies Take 1 tablet (10 mg) by mouth at bedtime 100 tablet 3 03/15/2024 Active pantoprazole 40 mg delayed release oral tablet (14 sources) Proton Pump Inhibitor Start: 06-06-2019 take 1 tablet by mouth once daily pantoprazole (ProtoNix) 40 MG EC tablet Indications: Gastroesophageal reflux disease without esophagitis TAKE 1 tablet Orally daily 100 tablet 3 09/06/2023 Active potassium chloride 20 meq extended release oral tablet (13 sources) Start: 01-16-2024 End: 05-29-2024 take 1 tablet by mouth once daily potassium chloride CR (K-Tab) 20 MEQ ER tablet Indications: Hypokalemia Take 1 tablet (20 mEq) by mouth Daily Do not crush, chew, or split. 90 tablet 3 05/29/2024 Active Start: 08-13-2023 End: 01-10-2024 take 1 tablet by mouth once daily potassium chloride CR (K-Tab) 20 MEQ ER tablet take 1 tablet by mouth once daily for 5 days 08/13/2023 01/10/2024 Discontinued (Other) rosuvastatin calcium 10 mg oral tablet (14 sources) HMG-CoA Reductase Inhibitor Start: 08-22-2023 take 1 tablet by mouth once daily rosuvastatin (Crestor) 10 MG tablet Indications: Elevated LDL cholesterol level (CMS/HCC) Take 1 tablet (10 mg) by mouth 1 (one) time each day at the same time 100 tablet 3 08/22/2023 Active Completed/Discontinued Medications Medication Drug Class(es) Dates Sig (Normalized) Sig (Original) ibuprofen 800 mg oral tablet (3 sources) Nonsteroidal Anti-inflammatory Drug Start: End: 4 take 1 tablet by mouth every eight hours as needed ibuprofen 800 MG tablet Take 800 mg by mouth every 8 (eight) hours if needed 01/03/2024 01/10/2024 Discontinued (Other) methylPREDNISolone 4 mg oral tablet (3 sources) Corticosteroid Start: 4 End: 4 take 1 tablet by mouth once methylPREDNISolone (Medrol Dospak) 4 MG tablets Take 4 mg by mouth 1 (one) time See administration instructions 01/03/2024 01/10/2024 Discontinued (Other) Problems Active Problems Problem Classification Problem Date Documented Da te Episodic/Chronic Anxiety disorders (17 sources) Generalized anxiety disorder; Translations: [Generalized anxiety disorder] Onset: 3 11-14-2022 Chronic Asthma (15 sources) Uncomplicated moderate persistent asthma; Translations: [Moderate persistent asthma, uncomplicated] Onset: 3 11-14-2022 Chronic Cataract (1 source) Presence of intraocular lens; Translations: [Pseudophakia] Onset: 4 Chronic Chronic kidney disease (17 sources) Chronic kidney disease stage 3A ; Translations: [Stage 3a chronic kidney disease (HCC)] Onset: 3 11-14-2022 Chronic Disorders of lipid metabolism (15 sources) Raised low density lipoprotein cholesterol; Translations: [Pure hypercholesterolemia, unspecified] Onset: 3 11-14-2022 Chronic Esophageal disorders (17 sources) Gastroesophageal reflux disease; Translations: [Gastro-esophageal reflux disease without esophagitis] Onset: 3 11-14-2022 Chronic Essential hypertension (17 sources) Benign hypertension; Translations: [Essential (primary) hypertension] Onset: 3 11-14-2022 Chronic Fluid and electrolyte disorders (19 sources) Hypokalemia; Translations: [Hypokalemia] Onset: 3 11-14-2022 Episodic Headache; including migraine (15 sources) Tension-type headache; Translations: [Tension-type headache, unspecified, not intractable] Onset: 3 11-14-2022 Chronic Other gastrointestinal disorders (1 source) Dysphagia, unspecified; Translations: [Dysphagia, unspecified] Onset: 5 Episodic Other lower respiratory disease (2 sources) Chronic cough; Translations: [Chronic cough] 04-02-2024 Episodic Other nervous system disorders (15 sources) Chronic pain; Translations: [Other chronic pain] Onset: 3 11-14-2022 Chronic Other non-traumatic joint disorders (15 sources) Joint ankylosis of the shoulder region; Translations: [Ankylosis, right shoulder] Onset: 3 11-14-2022 Chronic Other non-traumatic joint disorders (4 sources) Pain in right knee; Translations: [Pain in joint, lower leg] Onset: 5 06-10-2024 Episodic Other screening for suspected conditions (not mental disorders or infectious disease) (4 sources) Encounter for screening mammogram for malignant neoplasm of breast; Translations: [ENC SCR MAMMO MALIG NEOPLASM BREAST] Onset: 2 Episodic Other upper respiratory disease (15 sources) Seasonal allergy; Translations: [Other seasonal allergic rhinitis] Onset: 3 11-14-2022 Chronic Other upper respiratory disease (2 sources) Hoarse; Translations: [Dysphonia] 04-02-2024 Episodic Peripheral and visceral atherosclerosis (2 sources) Atherosclerosis of aorta; Translations: [Atherosclerosis of aorta] 01-10-2024 Chronic Residual codes; unclassified (4 sources) Obstructive sleep apnea (adult) (pediatric); Translations: [OBSTRUCTIVE SLEEP APNEA] Onset: 1 Chronic Residual codes; unclassified (17 sources) Obstructive sleep apnea syndrome; Translations: [Obstructive sleep apnea (adult) (pediatric)] Onset: 3 11-14-2022 Chronic Residual codes; unclassified (17 sources) Dependence on continuous positive airway pressure ventilation; Translations: [Dependence on other enabling machines and devices] Onset: 3 11-15-2022 Chronic Retinal detachments; defects; vascular occlusion; and retinopathy (16 sources) Pigmentary retinal dystrophy; 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] Onset: 3 11-14-2022 Chronic Spondylosis; intervertebral disc disorders; other back problems (19 sources) Inflammation of sacroiliac joint; Translations: [Sacroiliitis, not elsewhere classified] Onset: 3 11-14-2022 Chronic Syncope (2 sources) Near syncope; Translations: [Syncope and collapse] 06-10-2024 Episodic Thyroid disorders (15 sources) Acquired hypothyroidism; Translations: [Hypothyroidism, unspecified] Onset: 3 11-14-2022 Chronic Unclassified (3 sources) CONTACT W/AND (SUSP) EXPOS COVID-19; Translations: [CONTACT W/AND (SUSP) EXPOS COVID-19] Onset: 1 Past or Other Problems Problem Classification Problem Date Documented Da te Episodic/Chronic Administrative/social admission (2 sources) Patient encounter status; Translations: [Other specified counseling] 01-10-2024 Episodic Mood disorders (12 sources) Mood disorders Onset: 01-06-2024 01-10-2024 Neoplasms of unspecified nature or uncertain behavior (15 sources) Thrombocytosis; Translations: [Thrombocytosis] Onset: 11-14-2022 11-14-2022 Episodic Other gastrointestinal disorders (17 sources) Dysphagia; Translations: [Dysphagia, unspecified] Onset: 11-14-2022 11-14-2022 Episodic Other nutritional; endocrine; and metabolic disorders (17 sources) Body mass index 25-29 - overweight; Translations: [Overweight] Onset: 11-14-2022 11-14-2022 Episodic Residual codes; unclassified (15 sources) Difficulty sleeping ; Translations: [Sleep disorder, unspecified] Onset: 11-15-2022 11-15-2022 Episodic Residual codes; unclassified (2 sources) Other problems related to lifestyle; Translations: [Other problems related to lifestyle] 01-10-2024 Episodic Unclassified (1 source) CONTACT W/AND (SUSP) EXPOS COVID-19; Translations: [CONTACT W/AND (SUSP) EXPOS COVID-19] Onset: 01-22-2021 Results Test Name Value Interpretation Reference Range Facility [facility] 05-16-2024 L - -------- Specimen: [id number] Received: 05/16/24 Status: LALY Farhat Num: [id number] Spec Type: Surgical Subm Dr: Sivakumar Juárez MD Tissues: A Soft Tissue Mass - Biopsy (HIATAL HERNIA POLYP) B Gastric Biopsy (GASTRIC BX) C Esophagus Biopsy (ESOPHAGUS BX) Procedures: HE/8, Gross/Micro L5, Gross/Micro L4/2, H PYLORI/2 -------- Age/ Patient Sex Location Account Attending Physician -------- Анна Amaya/F [id number] Sivakumar Juárez MD -------- SPEC NUM: [id number] RECD: 05/16/24 STATUS: LALY DOUGHERTY NUM: [id number] KARAN: 05/16/[address] [facility] [address]: Sivakumar Juárez MD ENTERED: 05/16/[address] [facility] [address]: SPEC TYPE: Surgical DEPT: S ENTERED BY: [id number] RECV BY: [id number] ORDERED: HE/8, Gross/Micro L5, Gross/Micro L4/2, H PYLORI/2 ORDERED: HE/8, Gross/Micro L5, Gross/Micro L4/2, H PYLORI/2 Pathological Diagnosis A. Hiatal hernia polyp: - Inflamed and ulcerated hyperplastic polyp with intestinal metaplasia and reactive atypia. - No definite dysplasia or malignancy identified. B. Gastric biopsy: - Benign gastric mucosa showing moderate chronic gastritis. - H. pylori immunostain (with satisfactory control) is negative. C. Esophagus, biopsy: - Specialized intestinal mucosa, compatible with Ruth's esophagus, if clinically and endoscopically supported. - No definite dysplasia or malignancy identified. Clinical Information Dysphagia, Part B rule out H. pylori, Part rule out Ruth's -------- Specimen: [id number] Received: 05/16/24 Status: LALY Dougherty Num: [id number] Spec Type: Surgical Subm Dr: Sivakumar Juárez MD Tissues: A Soft Tissue Mass - Biopsy (HIATAL HERNIA POLYP) B Gastric Biopsy (GASTRIC BX) C Esophagus Biopsy (ESOPHAGUS BX) Procedures: HE/8, Gross/Micro L5, Gross/Micro L4/2, H PYLORI/2 -------- Patient: Анна Amaya V [id number] (Continued) -------- Specimen: [id number] Received: 05/16/24 (Continued) Signed (signature on file) Allison Chi MD 05/20/24 1410 -------- Specimen: [id number] Received: 05/16/24 Status: LALY Dougherty Num: [id number] Spec Type: Surgical Subm Dr: Sivakumar Juárez MD Tissues: A Soft Tissue Mass - Biopsy (HIATAL HERNIA POLYP) B Gastric Biopsy (GASTRIC BX) C Esophagus Biopsy (ESOPHAGUS BX) Procedures: /8, Gross/Micro L5, Gross/Micro L4/2, H PYLORI/2 -------- Patient: Анна Amaya V [id number] (Continued) -------- Specimen: [id number] Received: 05/16/24 (Continued) Gross Description Part A is received in formalin labeled with the patients name, date of , and hiatal hernia polyp are 3 burr-mac, focally erythematous, friable, 0.3, 0.4 and 0.8 cm in greatest dimension polypoid fragments. The largest polyp is inked black at the apparent point of attachment, serially section, and entirely submitted in A1 with the remainder of the specimen entirely submitted in A2. (2, ns, [id number] A)J Part B is received in formalin labeled with the patients name, date of , and gastric BX are 2 burr-mac, focally erythematous, friable, 0.3 cm each in greatest dimension tissue bits. (1, ns, [id number] B)JG Part See is received in formalin labeled with the patients name, date of , and esophagus BX are 2 pale mac, focally erythematous, feathery, 0.1 to 0.3 cm in greatest dimension tissue bits. The specimen is entirely submitted in a single cassette. (1, ns, P05-284 C) CPT Codes [id number], 26920 -------- -------- Specimen: [id number] Received: 05/16/24 Status: LALY Dougherty Num: [id number] Spec Type: Surgical Subm Dr: Sivakumar Juárez MD Tissues: A Soft Tissue Mass - Biopsy (HIATAL HERNIA POLYP) B Gastric Biopsy (GASTRIC BX) C Esophagus Biopsy (ESOPHAGUS BX) Procedures: HE/8, Gross/Micro L5, Gross/Micro L4/2, H PYLORI/2 -------- Patient: Jose LuisАнна Kenna F01 (more content not included)... Normal [facility] ALL BASIC METABOLIC PANELon 01-25-2024 Anion gap [Moles/Vol] 14.2 mmol/L [facility] Calcium [Mass/Vol] 9.4 mg/dL 8.5 - 10. 1 mg/dL [facility] Chloride [Moles/Vol] 101 mmol/L 98 - 10 7 mmol/L [facility] CO2 [Moles/Vol] 26.3 mmol/L 21.0 - 32.0 mmol/L [facility] Creatinine [Mass/Vol] 1.18 mg/dL High 0.55 - 1.02 mg/dL [facility] GFR/1.73 sq M.predicted CKD-EPI (S/P/Bld) [Vol rate/Area] 56 Low >=60 mL[facility]min[facility]1.73m 2 [facility] Glucose [Mass/Vol] 108 mg/dL High 74 - 106 mg/dL NO [facility] Interpretation and review of laboratory results Abnormal [facility] Potassium [Moles/Vol] 3.5 mmol/L 3.5 - 5.1 mmol/L [facility] Sodium [Moles/Vol] 138 mmol/L 136 - 145 mmol/L [facility] TBH EGFR-NON AF CHINESE 46 Low >=60 mL/min/1.73m 2 [facility] Urea nitrogen [Mass/Vol] 17.0 mg/dL 7.0 - 18.0 mg/dL [facility] Urea nitrogen/Creatinine [Mass ratio] 14.4 mg/mg [facility] CBC WITH AUTO DIFFon BASOPHILS ABSOLUTE AUTO 0.0 [facility] Basophils/100 WBC (Bld) 0.4 % 0.2 - 2.0 % [facility] Eosinophils/100 WBC (Bld) 1.8 % 0.9 - 7.0 % [facility] Erythrocyte distribution width (RBC) [Ratio] 14.3 % 11.0 - 15.0 % [facility] Hematocrit (Bld) [Volume fraction] 40.3 % 36.0 - 48.0 % [facility] Hemoglobin (Bld) [Mass/Vol] 12.7 g/dL 12.0 - 16.0 g/dL [facility] IMMATURE GRANULOCYTES ABS AUTO 0.01 [facility] Immature granulocytes/100 WBC (Bld) 0.1 % 0.0 - 0.5 % [facility] Interpretation and review of laboratory results Abnormal [facility] LYMPHOCYTES ABSOLUTE AUTO 2.4 [facility] Lymphocytes/100 WBC (Bld) 32.9 % 20.5 - 60.0 % [facility] MCH (RBC) [Entitic mass] 30.0 pg 26.7 - 34.0 pg [facility] MCHC (RBC) [Mass/Vol] 31.5 g/dL 29.9 - 35.2 g/dL [facility] MCV (RBC) [Entitic vol] 95.0 fL 81.0 - 99.0 fL [facility] MONOCYTES ABSOLUTE AUTO 0.4 [facility] Monocytes/100 WBC (Bld) 6.0 % 1.7 - 12.0 % [facility] NEUTROPHILS ABSOLUTE AUTO 4.3 [facility] Neutrophils/100 WBC (Bld) 58.8 % 43.0 - 75.0 % [facility] Platelet mean volume (Bld) [Entitic vol] 8.6 fL Low 9.5 - 13.5 fL [facility] EO # 0.1 [facility] PLT 386 [facility] RBC 4.24 [facility] WBC 7.4 [facility] MG MAMM SCREEN 3D HOLLY CADon 10-20-2021 MG MAMM SCREEN 3D HOLLY CAD Patient: АННА AMAYA V. Exam Date: 10/20/2021 : 1960 Gender:F Ordering : DR ERIKA ZEE M.D. Admission #: [id number] Family : Order #: [id number] CLICK HERE TO VIEW EXAM RADIOLOGY REPORT [...] No Treatments None Family Cancers None LOCATION: [facility] BREAST COMPOSITION: Scattered areas fibroglandular density. FINDINGS: [...] MD on 10/20/2021 at 09:58 Normal [facility] TSH w/ Reflex to Free T4on 0 09-07-2021 TSH 1.990 uIU/mL Normal 0.400-4.500 [facility] [employer] Comment on above: Performed By: #### T SH reflex FT4 #### [facility] [address], [place] [id number] Complete Blood Count with Au to Diffon 07-27-2021 Basophils (Bld) [#/Vol] 0.05 10*3/uL Normal 0.00-0.20 [facility] Comment on above: Performed By: #### L IPD, TSH reflex FT4, CMP, FT4, CBCAD #### [facility] [address], [place] [id number] Basophils/100 WBC (Bld) 0.9 % Normal [facility] Comment on above: Performed By: #### L IPD, TSH reflex FT4, CMP, FT4, CBCAD #### [facility] [address], [place] [id number] Eosinophils (Bld) [#/Vol] 0.41 10*3/uL Normal 0.02-0.50 [facility] Comment on above: Performed By: #### L IPD, TSH reflex FT4, CMP, FT4, CBCAD #### [facility] [address], [place] [id number] Eosinophils/100 WBC (Bld) 7.2 % Normal [facility] Comment on above: Performed By: #### L IPD, TSH reflex FT4, CMP, FT4, CBCAD #### [facility] [address], [place] [id number] Erythrocyte distribution width (RBC) [Ratio] 13.4 % Normal 11.0-15.0 [facility] Comment on above: Performed By: #### L IPD, TSH reflex FT4, CMP, FT4, CBCAD #### [facility] [address], [place] [id number] Hematocrit (Bld) [Volume fraction] 41.2 % Normal 35.0-47.0 [facility] Comment on above: Performed By: #### L IPD, TSH reflex FT4, CMP, FT4, CBCAD #### [facility] [address], [place] [id number] Hemoglobin (Bld) [Mass/Vol] 13.1 g/dL Normal 11.6-15.5 [facility] Comment on above: Performed By: #### L IPD, TSH reflex FT4, CMP, FT4, CBCAD #### [facility] [address], [place] [id number] Lymphocytes (Bld) [#/Vol] 1.8 10*3/uL Normal 0.9-3.9 [facility] Comment on above: Performed By: #### L IPD, TSH reflex FT4, CMP, FT4, CBCAD #### [facility] [address], [place] [id number] Lymphocytes/100 WBC (Bld) 31.8 % Normal [facility] Comment on above: Performed By: #### L IPD, TSH reflex FT4, CMP, FT4, CBCAD #### [facility] [address], [place] [id number] MCH (RBC) [Entitic mass] 29.3 pg Normal 27.0-33.0 [facility] Comment on above: Performed By: #### L IPD, TSH reflex FT4, CMP, FT4, CBCAD #### [facility] [address], [place] [id number] MCHC (RBC) [Mass/Vol] 31.8 g/dL Low 32.0-36.0 [facility] Comment on above: Performed By: #### L IPD, TSH reflex FT4, CMP, FT4, CBCAD #### [facility] [address], [place] [id number] MCV (RBC) [Entitic vol] 92 fL Normal 80-100 [facility] Comment on above: Performed By: #### L IPD, TSH reflex FT4, CMP, FT4, CBCAD #### [facility] [address], [place] [id number] Monocytes (Bld) [#/Vol] 0.5 10*3/uL Normal 0.2-0.9 [facility] Comment on above: Performed By: #### L IPD, TSH reflex FT4, CMP, FT4, CBCAD #### [facility] [address], [place] [id number] Monocytes/100 WBC (Bld) 8.1 % Normal [facility] Comment on above: Performed By: #### L IPD, TSH reflex FT4, CMP, FT4, CBCAD #### [facility] [address], [place] [id number] Neutrophils (Bld) [#/Vol] 3.0 10*3/uL Normal 1.5-7.8 [facility] Comment on above: Performed By: #### L IPD, TSH reflex FT4, CMP, FT4, CBCAD #### [facility] [address], [place] [id number] Neutrophils/100 WBC (Bld) 51.6 % Normal [facility] Comment on above: Performed By: #### L IPD, TSH reflex FT4, CMP, FT4, CBCAD #### [facility] [address], [place] [id number] Platelet mean volume (Bld) [Entitic vol] 9.50 fL Normal 7.50-12.50 [facility] Comment on above: Performed By: #### L IPD, TSH reflex FT4, CMP, FT4, CBCAD #### [facility] [address], [place] [id number] Platelets (Bld) [#/Vol] 367 10*3/uL Normal 140-400 [facility] Comment on above: Performed By: #### L IPD, TSH reflex FT4, CMP, FT4, CBCAD #### [facility] [address], [place] [id number] RBC (Bld) [#/Vol] 4.47 10*6/uL Normal 3.90-5.20 [facility] Comment on above: Performed By: #### L IPD, TSH reflex FT4, CMP, FT4, CBCAD #### [facility] [address], [place] [id number] RDW-SD 45.9 fL Normal 37.0-50.0 [facility] Comment on above: Performed By: #### L IPD, TSH reflex FT4, CMP, FT4, CBCAD #### [facility] [address], [place] [id number] WBC (Bld) [#/Vol] 5.7 10*3/uL Normal 3.8-11.0 [facility] Comment on above: Performed By: #### L IPD, TSH reflex FT4, CMP, FT4, CBCAD #### [facility] [address], [place] [id number] Comprehensive Metabolic Pane félix 07-27-2021 Albumin [Mass/Vol] 4.5 g/dL Normal 3.6-5.1 [facility] Comment on above: Performed By: #### L IPD, TSH reflex FT4, CMP, FT4, CBCAD #### [facility] [address], [place] [id number] Albumin/Globulin [Mass ratio] 1.7 {ratio} Normal 1.0-2.5 [facility] Comment on above: Performed By: #### L IPD, TSH reflex FT4, CMP, FT4, CBCAD #### [facility] [address], [place] [id number] ALP [Catalytic activity/Vol] 89 U/L Normal 35-119 [facility] Comment on above: Performed By: #### L IPD, TSH reflex FT4, CMP, FT4, CBCAD #### [facility] [address], [place] [id number] ALT [Catalytic activity/Vol] 27 U/L Normal 6-33 [facility] Comment on above: Result Comment: 03/24 Female reference range changed. Performed By: #### L IPD, TSH reflex FT4, CMP, FT4, CBCAD #### [facility] [address], [place] [id number] Anion gap [Moles/Vol] 18 mmol/L Normal 12-20 [facility] Comment on above: Result Comment: Effe ctive 04/29/2019 reference range changed. Performed By: #### L IPD, TSH reflex FT4, CMP, FT4, CBCAD #### [facility] [address], [place] [id number] AST [Catalytic activity/Vol] 25 U/L Normal 9-34 [facility] Comment on above: Performed By: #### L IPD, TSH reflex FT4, CMP, FT4, CBCAD #### [facility] [address], [place] [id number] BUN/CREA 22 Ratio Normal 6-22 [facility] Comment on above: Performed By: #### L IPD, TSH reflex FT4, CMP, FT4, CBCAD #### [facility] [address], [place] [id number] Calcium [Mass/Vol] 9.5 mg/dL Normal 8.6-10.2 [facility] Comment on above: Performed By: #### L IPD, TSH reflex FT4, CMP, FT4, CBCAD #### [facility] [address], [place] [id number] Chloride [Moles/Vol] 102 mmol/L Normal 98-107 [facility] Comment on above: Performed By: #### L IPD, TSH reflex FT4, CMP, FT4, CBCAD #### [facility] [address], [place] [id number] CO2 [Moles/Vol] 26 mmol/L Normal 20-31 [facility] Comment on above: Performed By: #### L IPD, TSH reflex FT4, CMP, FT4, CBCAD #### [facility] [address], [place] [id number] Creatinine [Mass/Vol] 1.0 mg/dL Normal 0.6-1.4 [facility] Comment on above: Performed By: #### L IPD, TSH reflex FT4, CMP, FT4, CBCAD #### [facility] [address], [place] [id number] eGFRAA 72 mL/min/1.73m2 Normal >60 [facility] Comment on above: Performed By: #### L IPD, TSH reflex FT4, CMP, FT4, CBCAD #### [facility] [address], [place] [id number] eGFRNAA 60 mL/min/1.73m2 Low >60 [facility] Comment on above: Performed By: #### L IPD, TSH reflex FT4, CMP, FT4, CBCAD #### [facility] [address], [place] [id number] Globulin (S) [Mass/Vol] 2.6 g/dL Normal 1.9-3.7 [facility] Comment on above: Performed By: #### L IPD, TSH reflex FT4, CMP, FT4, CBCAD #### [facility] [address], [place] [id number] Glucose [Mass/Vol] 110 mg/dL High 65-99 [facility] [place] [employer] Comment on above: Result Comment: For FASTING Glucose --- ADA reference ranges: Normal 65-99 mg/dl Prediabetes 100-125 Diabetes >/= 126 Performed By: #### L IPD, TSH reflex FT4, CMP, FT4, CBCAD #### [facility] [address], [place] [id number] Potassium [Moles/Vol] 3.5 mmol/L Normal 3.5-5.5 [facility] [employer] Comment on above: Performed By: #### L IPD, TSH reflex FT4, CMP, FT4, CBCAD #### [facility] [address], [place] [id number] Protein [Mass/Vol] 7.1 g/dL Normal 6.1-8.1 [place] [facility] [employer] Comment on above: Performed By: #### L IPD, TSH reflex FT4, CMP, FT4, CBCAD #### [facility] [address], [place] [id number] Sodium [Moles/Vol] 142 mmol/L Normal 135-146 [facility] [place] [employer] Comment on above: Performed By: #### L IPD, TSH reflex FT4, CMP, FT4, CBCAD #### [facility] [address], [place] [id number] TBIL <0.3 Normal [facility] [employer] Comment on above: Performed By: #### L IPD, TSH reflex FT4, CMP, FT4, CBCAD #### [facility] [address], [place] [id number] Urea nitrogen [Mass/Vol] 21 mg/dL Normal 7-25 [facility] [employer] Comment on above: Performed By: #### L IPD, TSH reflex FT4, CMP, FT4, CBCAD #### [facility] [address], [place] [id number] Free T4on 07-27-2021 Free T4 [Mass/Vol] 1.17 ng/dL Normal 0.80-1.80 [place] [facility] [employer] Comment on above: Performed By: #### L IPD, TSH reflex FT4, CMP, FT4, CBCAD #### [facility] [address], [place] [id number] Lipid Panelon 07-27-2021 Cholesterol [Mass/Vol] 256 mg/dL High 125-200 [facility] Comment on above: Result Comment: Low risk < 200mg/dL Borderline risk 201-239 mg/dl High risk > or equal to 240 Performed By: #### L IPD, TSH reflex FT4, CMP, FT4, CBCAD #### [facility] [address], [place] [id number] Cholesterol in HDL [Mass/Vol] 68 mg/dL Normal >40 [facility] Comment on above: Result Comment: High Cardiovascular Risk HDL <40 mg/dL Low Cardiovascular Risk HDL > or equal to 60 mg/dl Performed By: #### L IPD, TSH reflex FT4, CMP, FT4, CBCAD #### [facility] [address], [place] [id number] Cholesterol in LDL [Mass/Vol] 170 mg/dL Normal [facility] Comment on above: Result Comment: LDL ATP III CLASSIFICATION LDL less than 100 mg/dl Optimal LDL 100-129 mg/dl Near or above optimal LDL 130-159 Borderline high LDL 160-189 High LDL greater than 189 mg/dl Very High Performed By: #### L IPD, TSH reflex FT4, CMP, FT4, CBCAD #### [facility] [address], [place] [id number] Cholesterol in VLDL [Mass/Vol] 18 mg/dL Normal [facility] Comment on above: Performed By: #### L IPD, TSH reflex FT4, CMP, FT4, CBCAD #### [facility] [address], [place] [id number] Cholesterol.total/Ch olesterol in HDL [Mass ratio] 4 {ratio} Normal [facility] Comment on above: Performed By: #### L IPD, TSH reflex FT4, CMP, FT4, CBCAD #### [facility] [address], [place] [id number] Triglyceride [Mass/Vol] 89 mg/dL Normal 30-150 [facility] Comment on above: Result Comment: TRIG ATPIII CLASSIFICATIONS TRIG less than 150 mg/dl Normal TRIG 150-199 mg/dl Borderline High TRIG 200-500 mg/dl High TRIG greather than 500 mg/dl Very High Performed By: #### L IPD, TSH reflex FT4, CMP, FT4, CBCAD #### [facility] [address], [place] [id number] TSH w/ Reflex to Free T4on 0 07-27-2021 FT4 reflex Free T4 Normal [facility] [employer] Comment on above: Performed By: #### L IPD, TSH reflex FT4, CMP, FT4, CBCAD #### [facility] [address], [place] [id number] TSH 6.030 uIU/mL High 0.400-4.500 [facility] [employer] Comment on above: Performed By: #### L IPD, TSH reflex FT4, CMP, FT4, CBCAD #### [facility] [address], [place] [id number] Covid-19 PCR ([facility])on SARS-CoV-2 (COVID-19) RNA IVAN+probe Ql (Unsp spec) Not detected Normal NOT DETECTED [facility] Comment on above: Result Comment: This test is not yet approved or cleared by the [place] FDA. When there are no FDA-approved or cleared tests available, and other criteria are met, FDA can make tests available under an emergency access mechanism called an Emergency Use Authorization (EUA). The EUA for this test is supported by the [place] [employer] of Health and Human Service's (HHS's) declaration [...] SARS-CoV-2. Performed By: #### C VDTBH #### [facility] [address] [address] [address] Dontae Toth Vital Signs Date Time Vital Sign Value Performing Clinician Facility 06-10-2024 11:40-0500 Body height 154.9 cm Franny Hemmer PA Work Phone: [facility] 06-10-2024 11:40-0500 Body mass index (BMI) [Ratio] 29.89 kg/m2 Franny Hemmer PA Work Phone: [facility] 06-10-2024 11:40-0500 Body weight 71.76 kg Franny Hemmer PA Work Phone: [facility] 06-10-2024 11:40-0500 Diastolic blood pressure 72 mm[Hg] Franny Hemmer PA Work Phone: [facility] 06-10-2024 11:40-0500 Heart rate 87 /min Franny Hemmer PA Work Phone: [facility] 06-10-2024 11:40-0500 Respiratory rate 16 /min Franny Hemmer PA Work Phone: [facility] 06-10-2024 11:40-0500 SaO2% (BldA) [Mass fraction] 96 % Franny Hemmer PA Work Phone: [facility] 06-10-2024 11:40-0500 Systolic blood pressure 108 mm[Hg] Franny Hemmer PA Work Phone: [facility] 05-16-2024 14:25-0500 Diastolic blood pressure 65 mm[Hg] Erika Zee MD Work Phone: [facility] 05-16-2024 14:25-0500 Heart rate 75 /min Erika Zee MD Work Phone: [facility] 05-16-2024 14:25-0500 Respiratory rate 16 /min Erika Zee MD Work Phone: [facility] 05-16-2024 14:25-0500 SaO2% (BldA) [Mass fraction] 96 % Erika Zee MD Work Phone: [facility] 05-16-2024 14:25-0500 Systolic blood pressure 115 mm[Hg] Erika Zee MD Work Phone: [facility] 05-16-2024 12:12-0500 Body height 154.94 cm Erika Zee MD Work Phone: [facility] 05-16-2024 12:12-0500 Body weight 68.03 kg Erika Zee MD Work Phone: [facility] 04-02-2024 10:32-0500 Body height 154.9 cm Franny Hemmer PA Work Phone: [facility] 04-02-2024 10:32-0500 Body mass index (BMI) [Ratio] 29.02 kg/m2 Franny Hemmer PA Work Phone: [facility] 04-02-2024 10:32-0500 Body weight 69.67 kg Franny Hemmer PA Work Phone: [facility] 04-02-2024 10:32-0500 Diastolic blood pressure 88 mm[Hg] Franny Hemmer PA Work Phone: [facility] 04-02-2024 10:32-0500 Heart rate 88 /min Franny Hemmer PA Work Phone: [facility] 04-02-2024 10:32-0500 Respiratory rate 16 /min Franny Hemmer PA Work Phone: [facility] 04-02-2024 10:32-0500 SaO2% (BldA) [Mass fraction] 96 % Franny Hemmer PA Work Phone: [facility] 04-02-2024 10:32-0500 Systolic blood pressure 124 mm[Hg] Franny Hemmer PA Work Phone: [facility] 01-10-2024 16:38-0400 Body height 154.9 cm Franny Hemmer PA Work Phone: [facility] 01-10-2024 16:38-0400 Body mass index (BMI) [Ratio] 28 kg/m2 Franny Hemmer PA Work Phone: [facility] 09-18-2024 16:38-0400 Body weight 67.22 kg Frannymilan Bossmer PA Work Phone: [facility] 01-10-2024 16:38-0400 Diastolic blood pressure 72 mm[Hg] Franny Bossmer PA Work Phone: [facility] 01-10-2024 16:38-0400 Heart rate 85 /min Franny Hemmer PA Work Phone: [facility] 01-10-2024 16:38-0400 Respiratory rate 16 /min Franny Hemmer PA Work Phone: [facility] 01-10-2024 16:38-0400 SaO2% (BldA) [Mass fraction] 97 % Frannymilan Bossmer PA Work Phone: [facility] 01-10-2024 16:38-0400 Systolic blood pressure 116 mm[Hg] Franny Hemmer PA Work Phone: [facility] Encounters Encounter Date Encounter Type Care Provider Facility Start: 06-10-2024 End: 06-10-2024 Bamboo flowsheet Franny Mcdermott PA Work Phone: [facility] Start: 06-10-2024 End: 06-10-2024 Bamboo flowsheet Franny Mcdermott PA Work Phone: [facility] Start: 06-10-2024 End: 06-10-2024 Office outpatient visit 25 minutes Franny Mcdermott PA Work Phone: [facility] Comment on above: Near syncope (Primar y Dx); Hypokalemia; EVIE (obstructive sleep apnea); CPAP (continuous positive airway pressure) dependence; Benign hypertension (CMS/HCC); Degeneration of intervertebral disc of lumbar region with discogenic back pain; Chronic pain of both knees; Stress reaction; Chronic kidney disease, stage 3a (HCC) (CMS/HCC) Start: 06-10-2024 End: 06-10-2024 ambulatory FRANNY MCDERMOTT Not Available Start: 05-29-2024 End: 05-29-2024 Telephone encounter Erika Zee MD Work Phone: [facility] Start: 05-16-2024 Non-patient / Non-visit Erika Zee MD Work Phone: [facility] Work Phone: Start: 05-16-2024 End: 05-16-2024 Admission to same day surgery center Erika Zee MD Work Phone: [facility] Work Phone: Start: 05-16-2024 End: 05-16-2024 ambulatory Erika Zee MD Work Phone: [facility] Work Phone: Start: 04-02-2024 End: 04-02-2024 Bamboo flowsheet Franny Mcdermott PA Work Phone: [facility] Start: 04-02-2024 End: 04-02-2024 Bamboo flowsheet Franny GILES Work Phone: [facility] Start: 04-02-2024 End: 04-02-2024 Office outpatient visit 15 minutes Franny GILES Work Phone: [facility] Comment on above: Dysphagia, unspecifi ed type (Primary Dx); Overweight (BMI 25.0-29.9); Gastroesophageal reflux disease without esophagitis; Hoarseness of voice; Chronic cough Start: 04-02-2024 End: 04-02-2024 ambulatory FRANNY MCDERMOTT Not Available Start: 01-25-2024 End: 01-25-2024 Clinisync Result Encounter Franny Mcdermott PA Work Phone: [facility] Unsolicited Start: 01-25-2024 End: 01-25-2024 Clinisync Result Encounter Franny Mcdermott PA Work Phone: [facility] Unsolicited Start: 01-19-2024 Office outpatient vi sit 15 minutes Donaldo Mills [facility] Start: 01-19-2024 ambulatory Donaldo Mills [facility] Start: 01-16-2024 End: 01-16-2024 Clinisync Result Encounter Franny GILES Work Phone: [facility] Unsolicited Start: 01-16-2024 End: 01-16-2024 Clinisync Result Encounter Franny GILES Work Phone: [facility] Start: 01-16-2024 End: 01-16-2024 Telephone encounter Franny GILES Work Phone: [facility] Start: 01-10-2024 End: 01-10-2024 Patient encounter procedure Franny GILES Work Phone: [facility] Comment on above: Medicare annual [facility], initial (Primary Dx); ACP (advance care planning); Difficulty sleeping; EVIE (obstructive sleep apnea); Other chronic pain; Tension headache; CPAP (continuous positive airway pressure) dependence; Moderate persistent asthma without complication (CMS/HCC); Benign hypertension (CMS/HCC); Dysphagia, unspecified type; Gastroesophageal reflux disease without esophagitis; Stage 3a chronic kidney disease (HCC) (CMS/HCC); Ankylosis, right shoulder; Inflammation of right sacroiliac joint (CMS/HCC); Acquired hypothyroidism (CMS/HCC); Overweight (BMI 25.0-29.9); Thrombocytosis; Elevated LDL cholesterol level (CMS/HCC); Generalized anxiety disorder (CMS/HCC); History of total hysterectomy; Hypokalemia; Retinitis pigmentosa; Seasonal allergies; Other problems related to lifestyle; Atherosclerosis of aorta (CMS/HCC) Start: 01-10-2024 End: 01-10-2024 ambulatory FRANNY MCDERMOTT Not Available Start: 01-10-2024 End: 01-10-2024 Bamboo flowsheet Franny GILES Work Phone: [facility] Start: 01-10-2024 End: 01-10-2024 Bamboo flowsheet Franny GILES Work Phone: [facility] Start: 11-02-2023 End: 11-02-2023 ambulatory DORITA DYE Not Available Start: 10-31-2023 End: 10-31-2023 ambulatory SANDEEP HARRELL Not Available Start: 10-05-2023 End: 10-05-2023 ambulatory DORITA DYE Not Available Start: 09-14-2023 End: 09-14-2023 ambulatory ERROL BURGESS Not Available Start: 08-16-2023 End: 08-16-2023 ambulatory ZENAIDA RANGEL Not Available Start: 10-20-2021 End: 10-21-[address] ERIKA ZEE Facility:[facility] Start: 03-22-2021 End: 03-23-[address] ERIKA ZEE Facility:[facility] Start: 02-22-2021 End: 02-23-[address] FRANNY MCDERMOTT Facility:[facility] Start: 01-22-2021 End: 01-22-[address] ERIKA ZEE Facility:[facility] Procedures Date Procedure Procedure Detail Performing Clinician Start: 05-16-2024 Esophagogastroduodenoscopy Erika Zee MD Work Phone: Start: 01-25-2024 ALL BASIC METABOLIC PANEL Franny GILES Work Phone: Start: 01-19-2024 Computerized ophthalmic imaging retina Donaldo Al Shweiki Start: 01-19-2024 Fundus Photos No Charge Donaldo Al Shfridaik i Start: 01-16-2024 ALL CBC WITH AUTO DIFF Franny GILES Work Phone: Start: 10-30-2023 Mammography Franny GILES Work Phone: Start: 11-14-2022 History of total hysterectomy History of total hysterectomy Franny GILES Work Phone: Start: 11-21-2018 Colonoscopy Franny GILES Work Phone: History of total hysterectomy Hi story of total hysterectomy Franny GLIES Work Phone: Plan of Treatment Date Care Activity Detail Author Start: 11-21-2028 Screening for malign ant neoplasm of colon [facility] Start: 01-09-2025 Medicare Annual Wellness (AWV) Medicare Annual Wellness (AWV) [facility] Start: 10-29-2024 Screening for malign ant neoplasm of breast Mammogram [facility] Start: 06-10-2024 End: 06-10-2025 Basic metabolic 1998 panel - Serum or Plasma Basic metabolic panel Lab Routine Near syncope Hypokalemia Benign hypertension (CMS/HCC) Expected: 06/10/2024 (Approximate), Expires: 06/10/2025 [facility] Work Phone: Comment on above: Expected: 06/10/2024 (Approximate), Expires: 06/10/2025 Start: 06-10-2024 End: 06-10-2025 XR Knee - bilateral 3 Views XR knee 3 views bilateral Imaging Routine Chronic pain of both knees Expected: 06/10/2024, Expires: 06/10/2025 [facility] Comment on above: Expected: 06/10/2024 , Expires: 06/10/2025 Start: 06-10-2024 End: 06-10-2024 Patient encounter procedure 06/10/2024 11:30 AM EST Office Visit [facility] [address] [place] [address] Franny Mcdermott PA [address] [place] [address] Arrived [facility] Comment on above: Arrived Start: 06-06-2024 End: 06-06-2024 Patient encounter procedure 06/06/2024 9:00 AM EST Office Visit [facility] [address] [place] [address] Franny Mcdermott PA [address] [place] [address] [facility] Start: 05-16-2024 [facility] Start: 04-02-2024 End: 04-02-2024 Patient encounter procedure 04/02/2024 10:30 AM EST Office Visit [facility] [address] [place] [address] Franny Mcdermott PA [address] [place] [address] Arrived [facility] Comment on above: Arrived Start: 01-23-2024 End: 01-15-2025 Basic metabolic 1998 panel - Serum or Plasma Basic metabolic panel Lab Routine Hypokalemia Expected: 01/23/2024 (Approximate), Expires: 01/15/2025 [facility] Work Phone: Comment on above: Expected: 01/23/2024 (Approximate), Expires: 01/15/2025 Start: 01-10-2024 End: 01-10-2024 Patient encounter procedure 01/10/2024 4:30 PM EDT Office Visit [facility] [address] [place] [id number] Franny Mcdermott PA [address] [place] [address] Arrived [facility] Comment on above: Arrived Start: 01-10-2024 End: 01-09-2025 CBC W Auto Differential panel - Blood CBC and differential Lab Routine Medicare annual wellness visit, initial Benign hypertension (CMS/HCC) Thrombocytosis Expected: 01/10/2024 (Approximate), Expires: 01/09/2025 [facility] Work Phone: Comment on above: Expected: 01/10/2024 (Approximate), Expires: 01/09/2025 Start: 01-10-2024 End: 01-09-2025 Comprehensive metabolic 2000 panel - Serum or Plasma Comprehensive metabolic panel Lab Routine Medicare annual wellness visit, initial Benign hypertension (CMS/HCC) Stage 3a chronic kidney disease (HCC) (CMS/HCC) Hypokalemia Expected: 01/10/2024 (Approximate), Expires: 01/09/2025 [facility] Comment on above: Expected: 01/10/2024 (Approximate), Expires: 01/09/2025 Start: 01-10-2024 End: 01-09-2025 HEPATITIS C AB W/RFL RNS, PCR W/RFL GENOTYPE,LIPA HEPATITIS C AB W/RFL RNS, PCR W/RFL GENOTYPE,LIPA Lab Routine Medicare annual wellness visit, initial Other problems related to lifestyle Expected: 01/10/2024 (Approximate), Expires: 01/09/2025 [facility] Comment on above: Expected: 01/10/2024 (Approximate), Expires: 01/09/2025 Start: 01-10-2024 End: 01-09-2025 Lipid 1996 panel - Serum or Plasma Lipid panel Lab Routine Medicare annual wellness visit, initial Benign hypertension (CMS/HCC) Elevated LDL cholesterol level (CMS/HCC) Expected: 01/10/2024 (Approximate), Expires: 01/09/2025 [facility] Comment on above: Expected: 01/10/2024 (Approximate), Expires: 01/09/2025 Start: 01-10-2024 End: 01-09-2025 TSH W/REFLEX TO FT4 TSH W/REFLEX TO FT4 Lab Routine Medicare annual wellness visit, initial Acquired hypothyroidism (CMS/HCC) Expected: 01/10/2024 (Approximate), Expires: 01/09/2025 [facility] Comment on above: Expected: 01/10/2024 (Approximate), Expires: 01/09/2025 Start: 12-24-2023 Influenza vaccination Influenza Vacc ine (#1) [facility] Start: 11-16-2023 Medicare Annual Wellness (AWV) Medicare Annual Wellness (AWV) [facility] Start: 1960 Screening for malign ant neoplasm of colon [facility] Patient Education Esophageal Dil ation Esophageal Stricture (DC) Stomach polyps Hiatal hernia - Discharge instructions Know your [facility] Work Phone: Immunizations Immunization Date Immunization Notes Care Provider Fa [facility] 03-01-2024 Seasonal, trivalent, recombinant, injectable influenza vaccine, preservative free Franny GILES Work Phone: [facility] 06-07-2023 RSV, recombinant, pr otein subunit RSVpreF, adjuvant reconstitu, 120mcg/0.5mL, PF (Arexvy) Franny GILES Work Phone: [facility] 12-31-2022 influenza, injectabl e, quadrivalent, preservative free Franny GILES Work Phone: [facility] 12-31-2022 influenza virus vacc ine, unspecified formulation Franny GILES Work Phone: [facility] 02-02-2022 zoster vaccine recombinant K aren Hemmer PA Work Phone: [facility] 01-20-2022 SARS-CoV-2, Unspecified Ana Laura n Hemmer PA Work Phone: [facility] 01-12-2022 influenza, injectabl e, quadrivalent, preservative free Franny Hemmer PA Work Phone: [facility] 12-01-2021 zoster vaccine recombinant K aren Hemmer PA Work Phone: [facility] 02-18-2021 influenza, injectabl e, quadrivalent, preservative free Franny Hemmer PA Work Phone: [facility] 03-21-2020 influenza, injectabl e, quadrivalent, contains preservative Franny Hemmer PA Work Phone: [facility] 03-21-2020 pneumococcal polysaccharide vaccine, 23 valent Franny Hemmer PA Work Phone: [facility] 04-09-2019 tetanus toxoid, redu mayela diphtheria toxoid, and acellular pertussis vaccine, adsorbed Franny Hemmer PA Work Phone: [facility] 01-03-2019 influenza, injectabl e, quadrivalent, preservative free Franny Hemmer PA Work Phone: [facility] 01-03-2019 seasonal influenza, intradermal, preservative free Franny Hemmer PA Work Phone: [facility] 01-25-2018 influenza, injectabl e, quadrivalent, preservative free Franny Hemmer PA Work Phone: [facility] 01-25-2018 seasonal influenza, intradermal, preservative free Franny Hemmer PA Work Phone: [facility] 02-02-2016 influenza, injectabl e, quadrivalent, preservative free Franny Hemmer PA Work Phone: [facility] 02-02-2016 pneumococcal conjuga te vaccine, 13 valent Franny Hemmer PA Work Phone: [facility] Payers Date Payer Category Payer Self-pay 2023 Medicare ANTHEM MEDICARE ADVANTAGE ANTHEM MEDICARE ADVANTAGE [id number] 2023-Present [address] [place] [address] [id number] 2023 Medicare (Managed Care) [facility] [id number] 2023 Unknown [id number] 1960 Unknown [id number] [id number]. 593 1960 Unknown [id number] 2.16.840.1.949795.3.579.2. 593 1960 Unknown [id number] 2.16.840.1.714632.3.579.2. 593 1960 Unknown [id number] 2.16.840.1.981529.3.579.2. 593 1960 Unknown [id number] 2.16.840.1.346644.3.579.2. 1347 1960 Unknown [id number] 2.16.840.1.635865.3.579.2. 1259 1960 Unknown [id number] 2.16.840.1.229333.3.579.2. 1259 1960 Unknown [id number] 2.16.840.1.723480.3.579.2. 1259 1960 Unknown [id number] 2.16.840.1.715178.3.579.2. 1259 1960 Unknown [id number] 2.16.840.1.157896.3.579.2. 1259 1960 Unknown [id number] 2.16.840.1.066185.3.579.2. 1259 1960 Unknown [id number] 2.16.840.1.736715.3.579.2. 1259 1960 Unknown [id number] 2.16.840.1.558526.3.579.2. 1259 1959 Unknown [id number] Unknown [id number] [id number]. 531 Social History Date Type Detail Facility Start: 11-14-2022 End: 05-16-2024 Tobacco smoking status OHIS Never smoked tobacco [facility] Start: 11-14-2022 Tobacco use and exposure Smokeless tobacco non-user [facility] Start: 01-10-2024 End: 06-10-2024 Alcoholic beverage intake Current drinker of alcohol (finding) [facility] Start: 01-10-2024 End: 04-12-2024 Alcoholic beverage intake [facility] Start: 01-06-2024 End: 04-12-2024 [id number] Health Literacy [facility] How often do you nee d to have someone help you when you read instructions, pamphlets, or other written material from your doctor or pharmacy [SILS] Sometimes [facility] Within the last year , have you been afraid of your partner or ex-partner? No [facility] How often to you hav e a drink containing alcohol? 2-4 times a month [facility] How many standard drinks containing alcohol do you have on a typical day? 3 or 4 [facility] How often do you hav e 6 or more drinks on 1 occasion? Never [facility] Do you feel stress - tense, restless, nervous, or anxious, or unable to sleep at night because your mind is troubled all the time - these days [OSQ] To some extent [facility] (I/We) worried wheth er (my/our) food would run out before (I/we) got money to buy more. Never true [facility] Start: 11-15-2022 Alcohol Comment Caffeine intak e: 1-2 cups per day [facility] Start: 1960 Sex assigned at Not on file [facility] Start: 05-16-2024 Sex Patient sex un known (finding) [facility] Start: 1960 Sex Assigned At Female [facility] Medical Equipment Procedure Code Equipment Code Equipment Origin al Text Equipment Identifier Dates Phacoemulsification of cataract with intraocular lens implantation Posterior-chamber intraocular lens, pseudophakic [id number] FDA Start: 06-06-2019 Phacoemulsification of cataract with intraocular lens implantation Posterior-chamber intraocular lens, pseudophakic [id number] FDA Start: 11-21-2019 Goals Date Patient Goal Desired Activity /State Clinical Notes 01-10-2024 to 06-10-2024 Franny Mcdermott, CHAN - 06/10/2024 11:30 AM ESTTelephone Encounter - Emilia Flores PERINATAL DIRECTOR - 05/29/2024 8:45 AM ESTTelephone Encounter - Emilia Flores, PERINATAL DIRECTOR - 05/29/2024 8:45 AM EST Note Date & Type Note Facility 06-10-2024 History of Presen t illness Narrative Images from the original note were not included. Subjective Patient ID: Анна Amaya is a 63 y.o. female who presents for Potassium Check. Анна is present today for evaluation of possibly hypokalemia. Admits she always feels like she is going to either black out or passout, fatigued, headachache on left side of head. She has been feeling like this for 4 - 5 months constantly. She is currently on Potassium daily, but she just restarted the potassium on 05/29/24. Has been out of it since 2023. Drinks 64 ounces of water a day. C/o bilateral knee pain. Uses Aleve with minimal improvement. C/o daily pain and muscle spasms in her back. Has increased stress. Her is having radiation for rectal cancer. Sees GI on Monday for follow up of her EGD she had done in April. Current Outpatient Medications on File Prior to Visit Medication Sig Dispense Refill albuterol HFA (Ventolin HFA) 90 mcg/act inhaler Inhale 2 puffs every 4 (four) hours if needed for wheezing or shortness of breath 18 g 5 chlorhexidine (Peridex) 0.12 % solution Use 15 mL in the mouth or throat if needed for wound care cyclobenzaprine (Flexeril) 10 MG tablet Take 10 mg by mouth 3 (three) times a day as needed for muscle spasms hydroCHLOROthiazide (HYDRODiuril) 25 MG tablet Take 1 tablet (25 mg) by mouth Daily 100 tablet 3 levothyroxine (Synthroid, Levoxyl) 25 MCG tablet Take 1 tablet (25 mcg) by mouth in the morning. Take on an empty stomach.. 100 tablet 3 montelukast (Singulair) 10 MG tablet Take 1 tablet (10 mg) by mouth at bedtime 100 tablet 3 pantoprazole (ProtoNix) 40 MG EC tablet TAKE 1 tablet Orally daily 100 tablet 3 potassium chloride CR (K-Tab) 20 MEQ ER tablet Take 1 tablet (20 mEq) by mouth Daily Do not crush, chew, or split. 90 tablet 3 rosuvastatin (Crestor) 10 MG tablet Take 1 tablet (10 mg) by mouth 1 (one) time each day at the same time 100 tablet 3 No current facility-administered medications on file prior to visit. I have reviewed and reconciled the history and medication list with the patient today. No Known Allergies Social History Tobacco Use Smoking status: Never Smokeless tobacco: Never Vaping Use Vaping status: Never Used Substance Use Topics Alcohol use: Yes Alcohol/week: 5.0 standard drinks of alcohol Types: 1 Glasses of wine, 4 Cans of beer per week Comment: Caffeine intake: 1-2 cups per day Drug use: Never Family History Problem Relation Name Age of Onset Hypertension Mother Kidney disease Mother Kidney disease Brother Past Medical History: Diagnosis Date Asthma ([facility]) multiple admits Cataract senile right eye GERD (gastroesophageal reflux disease) Headache, tension-type 07/31/[address] scan 01/25/2018 CT scan of head no acute intracranial abnormality Hx of CT scan 01/25/2018 CT scan of neck no acute fracture after fall Hypertension (CMS/HCC) 09/2021 Numbness 12/2022 Pyriformis syndrome Rotator cuff tear right Sciatica Sleep apnea 11/29/21 Vision loss 12/2017 Past Surgical History: Procedure Laterality Date CATARACT EXTRACTION Right 06/06/2019 CATARACT EXTRACTION Left 11/21/2019 CHOLECYSTECTOMY 2007 COLONOSCOPY 11/21/[address] GUIDED TRANSVAGINAL TRANSRECTAL FLUID DRAIN 07/17/2021 CT GUIDED TRANSVAGINAL TRANSRECTAL FLUID DRAIN 07/17/[address] Kim EGD 05/16/2024 With Biopsy and Dilation of Esophagus HYSTERECTOMY 1996 SHOULDER ADHESION RELEASE Right 06/06/2017 SHOULDER ARTHROSCOPY Right 2017 [facility] Visit Vitals BP 108/72 Pulse 87 Resp 16 Ht 5' 1 Wt 158 lb 3.2 oz SpO2 96% BMI 29.89 kg/m Smoking Status Never BSA 1.76 m Review of Systems Constitutional: Positive for fatigue. Negative for chills and fever. Respiratory: Negative for cough, shortness of breath and wheezing. Cardiovascular: Negative for chest pain, palpitations and leg swelling. Gastrointestinal: Negative for abdominal pain, constipation, diarrhea, nausea and vomiting. Skin: Negative for rash. Neurological: Positive for syncope (Near syncope) and headaches. Objective Physical Exam Constitutional: General: She is not in acute distress. Appearance: Normal appearance. She is well-developed. HENT: Head: Normocephalic and atraumatic. Eyes: General: No scleral icterus. Conjunctiva/sclera: Conjunctivae normal. Cardiovascular: Rate and Rhythm: Normal rate and regular rhythm. Heart sounds: Normal heart sounds. No murmur heard. Pulmonary: Effort: Pulmonary effort is normal. No respiratory distress. Breath sounds: Normal breath sounds. No wheezing, rhonchi or rales. Musculoskeletal: Right knee: Bony tenderness and crepitus present. Tenderness present. Left knee: Bony tenderness and crepitus present. Tenderness present. Skin: General: Skin is warm and dry. Neurological: General: No focal deficit present. Mental Status: She is alert and oriented to person, place, and time. Psychiatric: Mood and Affect: Mood is anxious. Affect is tearful. Behavior: Behavior normal. Assessment/Plan Diagnoses and all orders for this visit: Near syncope - Basic metabolic panel; Future Improving slightly after restarting her potassium supplement. Lab ordered. Hypokalemia - Basic metabolic panel; Future Continue supplement daily. Will recheck with updated BMP. EVIE (obstructive sleep apnea) Patient is compliant with CPAP usage and perceives benefit from treatment. Treatment has been effective in controlling the patient's symptoms of Sleep Apnea. Will continue to monitor with routine follow up appointments. CPAP (continuous positive airway pressure) dependence See above. Benign hypertension (CMS/HCC) - Basic metabolic panel; Future Patient's blood pressure is currently well controlled. Continue with current medications and I will continue to monitor. Goal BP remains less than 130/80. Degeneration of intervertebral disc of lumbar region with discogenic back pain Reviewed recent MRI. F/up with specialist as scheduled. Continue Flexeril prn. Encouraged routine stretches and gentle heat to back as needed. Chronic pain of both knees - XR knee 3 views bilateral; Future Will obtain x-rays for further evaluation at this time. Stress reaction - busPIRone (Buspar) 5 MG tablet; Take 1 tablet (5 mg) by mouth 2 (two) times a day as needed (Anxiety) Discussed this class of medication with the patient. Explained potential benefits and potential risks of this class of medication. Pt is agreeable to starting a new medication at this time. New prescription sent to the pharmacy for the patient. Will recheck in 2 weeks or sooner if needed. Any worsening of symptoms the patient is to stop the medication immediately and contact our office. Chronic kidney disease, stage 3a Will recheck with upcoming lab. Continue to stay hydrated. Follow up in about 2 weeks (around 06/24/2024) for Medication Follow Up. documented in this encounter [facility] 05-29-2024 Telephone encount er Note Sent. [facility] 05-29-2024 Miscellaneous Notes Formattin g of this note might be different from the original. Sent. potassium chloride CR (K-Tab) 20 MEQ ER tablet Patient is wondering if [facility] [place]. She said she struggles with low potassium sometimes and she thinks that is what is happening now to her. She feels light-headed, dizzy, like she might pass out. documented in this encounter [facility] 05-29-2024 Telephone encount er Note potassium chloride CR (K-Tab) 20 MEQ ER tablet Patient is wondering if we can get [facility] [place]. She said she struggles with low potassium sometimes and she thinks that is what is happening now to her. She feels light-headed, dizzy, like she might pass out. [facility] 05-16-2024 History and physi stevan note [facility] 05-16-2024 Procedure note [facility] 04-02-2024 History of Presen t illness Narrative Images from the original note were not included. Subjective Patient ID: Анна Amaya is a 63 y.o. female who presents for dysphagia. Анна is present today for evaluation of feeling like she is choking. Admits she feels like her throat is constricted at times, she will off/on cough and will have to drink water to soothe the cough. Can hurt to swallow. The feeling of constriction is all the time and at times will bring on the cough and will just keep coughing until she drinks some water and that will calm her cough down some. If she is sleeping, or laying down, she will have to sit up really quickly and take her CPAP off and drink some water, because she feels like she is choking. Occasionally has trouble swallowing food, like steak, but does not happen with soft foods as often. Even liquids both her at times. This have been going on for a few months. If she forgets to take her Protonix her stomach feels like it is on fire. Gets on the treadmill every day. Still seems to be gaining weight. Does not have a sweet tooth. Tries to choose healthier foods when she eats out, like salmon salad. Did take Adipex in the past, but it made her feel overstimulated. Current Outpatient Medications on File Prior to Visit Medication Sig Dispense Refill albuterol HFA (Ventolin HFA) 90 mcg/act inhaler Inhale 2 puffs every 4 (four) hours if needed for wheezing or shortness of breath 18 g 5 chlorhexidine (Peridex) 0.12 % solution Use 15 mL in the mouth or throat if needed for wound care hydroCHLOROthiazide (HYDRODiuril) 25 MG tablet Take 1 tablet (25 mg) by mouth Daily 100 tablet 3 levothyroxine (Synthroid, Levoxyl) 25 MCG tablet Take 1 tablet (25 mcg) by mouth in the morning. Take on an empty stomach.. 100 tablet 3 montelukast (Singulair) 10 MG tablet Take 1 tablet (10 mg) by mouth at bedtime 100 tablet 3 pantoprazole (ProtoNix) 40 MG EC tablet TAKE 1 tablet Orally daily 100 tablet 3 potassium chloride CR (K-Tab) 20 MEQ ER tablet Take 1 tablet (20 mEq) by mouth Daily Do not crush, chew, or split. 90 tablet 3 rosuvastatin (Crestor) 10 MG tablet Take 1 tablet (10 mg) by mouth 1 (one) time each day at the same time 100 tablet 3 No current facility-administered medications on file prior to visit. I have reviewed and reconciled the history and medication list with the patient today. No Known Allergies Social History Tobacco Use Smoking status: Never Smokeless tobacco: Never Vaping Use Vaping status: Never Used Substance Use Topics Alcohol use: Yes Alcohol/week: 5.0 standard drinks of alcohol Types: 1 Glasses of wine, 4 Cans of beer per week Comment: Caffeine intake: 1-2 cups per day Drug use: Never Family History Problem Relation Name Age of Onset Hypertension Mother Kidney disease Mother Kidney disease Brother Past Medical History: Diagnosis Date Asthma ([facility]) multiple admits Cataract senile right eye GERD (gastroesophageal reflux disease) Headache, tension-type 07/31/[address] scan 01/25/2018 CT scan of head no acute intracranial abnormality Hx of CT scan 01/25/2018 CT scan of neck no acute fracture after fall Hypertension (CMS/HCC) 09/2021 Numbness 12/2022 Pyriformis syndrome Rotator cuff tear right Sciatica Sleep apnea 11/29/21 Vision loss 12/2017 Past Surgical History: Procedure Laterality Date CATARACT EXTRACTION Right 06/06/2019 CATARACT EXTRACTION Left 11/21/2019 CHOLECYSTECTOMY 2007 COLONOSCOPY 11/21/[address] GUIDED TRANSVAGINAL TRANSRECTAL FLUID DRAIN 07/17/2021 CT GUIDED TRANSVAGINAL TRANSRECTAL FLUID DRAIN 07/17/[address] Kim HYSTERECTOMY 1996 SHOULDER ADHESION RELEASE Right 06/06/2017 SHOULDER ARTHROSCOPY Right 2017 [facility] Visit Vitals BP 124/88 Pulse 88 Resp 16 Ht 5' 1 Wt 153 lb 9.6 oz SpO2 96% BMI 29.02 kg/m Smoking Status Never BSA 1.73 m Review of Systems Constitutional: Positive for unexpected weight change (Gain). Negative for chills, fatigue and fever. HENT: Positive for trouble swallowing and voice change (Occasional hoarseness). Respiratory: Positive for cough. Negative for shortness of breath and wheezing. Cardiovascular: Negative for chest pain, palpitations and leg swelling. Gastrointestinal: Negative for abdominal pain, constipation, diarrhea, nausea and vomiting. Reflux Skin: Negative for rash. Objective Physical Exam Constitutional: General: She is not in acute distress. Appearance: Normal appearance. She is well-developed. HENT: Head: Normocephalic and atraumatic. Mouth/Throat: Mouth: Mucous membranes are moist. Pharynx: No posterior oropharyngeal erythema. Eyes: General: No scleral icterus. Conjunctiva/sclera: Conjunctivae normal. Neck: Thyroid: No thyromegaly. Trachea: Trachea normal. No tracheal tenderness. Cardiovascular: Rate and Rhythm: Normal rate and regular rhythm. Heart sounds: Normal heart sounds. No murmur heard. Pulmonary: Effort: Pulmonary effort is normal. No respiratory distress. Breath sounds: Normal breath sounds. No wheezing, rhonchi or rales. Comments: Did have one dry coughing episode while in office and had hoarseness briefly following. Musculoskeletal: Cervical back: Tenderness (Mild right anterior cervical region) present. Normal range of motion. Lymphadenopathy: Cervical: No cervical adenopathy. Skin: General: Skin is warm and dry. Neurological: General: No focal deficit present. Mental Status: She is alert and oriented to person, place, and time. Psychiatric: Mood and Affect: Mood normal. Behavior: Behavior normal. Assessment/Plan Diagnoses and all orders for this visit: Dysphagia, unspecified type Increase Pantoprazole to twice a day for the next two weeks. If no improvement would get updated EGD, if normal would plan to refer pt to ENT for further evaluation. Overweight (BMI 25.0-29.9) She does have some Adipex left over at home. Encouraged her to try taking 1/2 a tablet to see if the s/e resolve. Encouraged her to continue to stay active, and continue with healthy diet. Gastroesophageal reflux disease without esophagitis Previous EGD in 12/20/2017 was WNL. Hoarseness of voice See above. Chronic cough See above. Follow up in about 9 months (around 01/10/2025) for Medicare Wellness Visit. documented in this encounter [facility] 01-16-2024 Telephone encount er Note Called and informed pt that her potassium was very low. Needs to restart the supplement today. She voices understanding, updated Rx sent in for pt. Advised pt will need to recheck in one week. Lab order will be sent to [facility]. [facility] 01-16-2024 Miscellaneous Notes Formattin g of this note might be different from the original. Called and informed pt that her potassium was very low. Needs to restart the supplement today. She voices understanding, updated Rx sent in for pt. Advised pt will need to recheck in one week. Lab order will be sent to [facility]. Critical lab potassium is 2.8 from [facility] documented in this encounter [facility] 01-16-2024 Telephone encount er Note Critical lab potassium is 2.8 from [facility] 01-10-2024 History of Presen t illness Narrative Images from the original note were not included. Subjective : Chief Complaint: Анна Amaya is an 63 y.o. female here for an annual wellness visit. Did have oral surgery this week. Sees them for a follow up next week. Has receeding gums and had surgery for this, has sutures in place. I have reviewed and reconciled the history and medication list with the patient today. Current Outpatient Medications on File Prior to Visit Medication Sig Dispense Refill chlorhexidine (Peridex) 0.12 % solution Use 15 mL in the mouth or throat if needed for wound care [DISCONTINUED] ibuprofen 800 MG tablet Take 800 mg by mouth every 8 (eight) hours if needed [DISCONTINUED] methylPREDNISolone (Medrol Dospak) 4 MG tablets Take 4 mg by mouth 1 (one) time See administration instructions albuterol HFA (Ventolin HFA) 90 mcg/act inhaler Inhale 2 puffs every 4 (four) hours if needed for wheezing or shortness of breath 18 g 5 hydroCHLOROthiazide (HYDRODiuril) 25 MG tablet Take 1 tablet (25 mg) by mouth Daily 90 tablet 1 levothyroxine (Synthroid, Levoxyl) 25 MCG tablet Take 1 tablet (25 mcg) by mouth in the morning. Take on an empty stomach.. 90 tablet 1 montelukast (Singulair) 10 MG tablet Take 1 tablet (10 mg) by mouth at bedtime 90 tablet 1 pantoprazole (ProtoNix) 40 MG EC tablet TAKE 1 tablet Orally daily 100 tablet 3 rosuvastatin (Crestor) 10 MG tablet Take 1 tablet (10 mg) by mouth 1 (one) time each day at the same time 100 tablet 3 [DISCONTINUED] potassium chloride CR (K-Tab) 20 MEQ ER tablet take 1 tablet by mouth once daily for 5 days No current facility-administered medications on file prior to visit. No Known Allergies Social History Tobacco Use Smoking status: Never Smokeless tobacco: Never Vaping Use Vaping status: Never Used Substance Use Topics Alcohol use: Yes Alcohol/week: 5.0 standard drinks of alcohol Types: 1 Glasses of wine, 4 Cans of beer per week Comment: Caffeine intake: 1-2 cups per day Drug use: Never Family History Problem Relation Name Age of Onset Hypertension Mother Kidney disease Mother Kidney disease Brother Past Medical History: Diagnosis Date Asthma ([facility]) multiple admits Cataract senile right eye GERD (gastroesophageal reflux disease) Headache, tension-type 07/31/[address] scan 01/25/2018 CT scan of head no acute intracranial abnormality Hx of CT scan 01/25/2018 CT scan of neck no acute fracture after fall Hypertension (CMS/HCC) 09/2021 Numbness 12/2022 Pyriformis syndrome Rotator cuff tear right Sciatica Sleep apnea 11/29/21 Vision loss 12/2017 Past Surgical History: Procedure Laterality Date CATARACT EXTRACTION Right 06/06/2019 CATARACT EXTRACTION Left 11/21/2019 CHOLECYSTECTOMY 2007 COLONOSCOPY 11/21/[address] GUIDED TRANSVAGINAL TRANSRECTAL FLUID DRAIN 07/17/2021 CT GUIDED TRANSVAGINAL TRANSRECTAL FLUID DRAIN 07/17/[address] Kim HYSTERECTOMY 1996 SHOULDER ADHESION RELEASE Right 06/06/2017 SHOULDER ARTHROSCOPY Right 2017 [facility] Review of Systems Constitutional: Negative for chills, fatigue and fever. HENT: Negative for congestion, ear pain, rhinorrhea and sore throat. Eyes: Negative for pain, discharge and visual disturbance. Respiratory: Negative for cough, shortness of breath and wheezing. Cardiovascular: Negative for chest pain, palpitations and leg swelling. Gastrointestinal: Negative for abdominal pain, constipation, diarrhea, nausea and vomiting. Genitourinary: Negative for difficulty urinating, dysuria and frequency. Musculoskeletal: Negative for arthralgias and back pain. Skin: Negative for rash. Neurological: Negative for dizziness and numbness. Psychiatric/Behavioral: Negative for sleep disturbance. The patient is not nervous/anxious. List of current healthcare providers: Patient Care Team: Erika Zee MD as PCP - General (Family Medicine) Zenaida Rangel NP as PCP - Selene IVORY Medicare Annual Visit Over the past 2 weeks, how often have you been bothered by any of the following problems? Little interest or pleasure in doing things: (P) Several days Feeling down, depressed, or hopeless: Not at all Patient Health Questionnaire-2 Score: 1 Over the past 2 weeks, how often have you been bothered by any of the following problems? Trouble falling or staying asleep, or sleeping too much: (P) Nearly every day Feeling tired or having little energy: (P) Several days Poor appetite or overeating: (P) Not at all Feeling bad about yourself - or that you are a failure or have let yourself or your family down: (P) Not at all Trouble concentrating on things, such as reading the newspaper or watching television: (P) Not at all Moving or speaking so slowly that other people could have noticed? Or the opposite - being so fidgety or restless that you have been moving around a lot more than usual.: Not at all Thoughts that you would be better off or hurting yourself in some way: (P) Not at all Patient Health Questionnaire-9 Score: 5 Cazares Fall Risk History of Falling, Immediate or Within 3 Months: (P) No Secondary Diagnosis: (P) No Ambulatory Aid: (P) Walks without aid/bedrest/nurse assist Intravenous Therapy/Heparin Lock: (P) No Gait/Transferring: (P) Normal/bedrest/immobile Mental Status: (P) Oriented to own ability Cazares Fall Risk Score: (P) 0 Health Risk Assessment Form Do you need help eating, bathing, using the toilet, dressing, or getting around your home?: (P) No Can you prepare your own meals?: (P) Yes Can you do your own housework without help?: (P) Yes Can you shop for groceries or clothes without help?: (P) No Do you exercise for about 20 minutes 3 or more days a week?: (P) Yes How confident are you that you can control and manage most of your health problems?: (P) Very confident Can you mange your money, credit cards and accounts, pay bills and taxes?: (P) Yes Vision Screening: Yes, no gross abnormalities Hearing Screening: Yes, no gross abnormalities Cognitive Screening Self Assessment: No overt cognitive deficiency is apparent by direct observation Three Word Registration: Leader, Season, Table Clock Drawing: Normal Clock - 2 Three Word Recall: All 3 words correct - 3 Total Score (0-5 Points): 5 Pain Assessment Pain Score: (P) 5 - Moderate pain Advance Care Planning Do you have a living will?: (P) No Do you have a medical power of prize coordinator?: (P) No Objective : BP 116/72 Pulse 85 Resp 16 Ht 5' 1 Wt 148 lb 3.2 oz SpO2 97% BMI 28.00 kg/m No results found. Physical Exam Constitutional: General: She is not in acute distress. Appearance: Normal appearance. She is well-developed. HENT: Head: Normocephalic and atraumatic. Right Ear: Tympanic membrane and ear canal normal. Left Ear: Tympanic membrane and ear canal normal. Nose: Nose normal. Mouth/Throat: Mouth: Mucous membranes are moist. Pharynx: No posterior oropharyngeal erythema. Eyes: General: No scleral icterus. Extraocular Movements: Extraocular movements intact. Conjunctiva/sclera: Conjunctivae normal. Pupils: Pupils are equal, round, and reactive to light. Neck: Vascular: No carotid bruit. Cardiovascular: Rate and Rhythm: Normal rate and regular rhythm. Heart sounds: Normal heart sounds. No murmur heard. Pulmonary: Effort: Pulmonary effort is normal. No respiratory distress. Breath sounds: Normal breath sounds. No wheezing, rhonchi or rales. Abdominal: General: Bowel sounds are normal. There is no distension. Palpations: Abdomen is soft. Tenderness: There is no abdominal tenderness. There is no guarding. Musculoskeletal: General: No swelling or deformity. Normal range of motion. Cervical back: Normal range of motion and neck supple. No tenderness. Skin: General: Skin is warm and dry. Capillary Refill: Capillary refill takes less than 2 seconds. Findings: No rash. Neurological: General: No focal deficit present. Mental Status: She is alert and oriented to person, place, and time. Cranial Nerves: No cranial nerve deficit. Sensory: No sensory deficit. Motor: No weakness. Gait: Gait normal. Deep Tendon Reflexes: Reflexes normal. Psychiatric: Mood and Affect: Mood normal. Behavior: Behavior normal. Thought Content: Thought content normal. Judgment: Judgment normal. Assessment/Plan : The following health maintenance schedule was reviewed with the patient and provided in printed form in the after visit summary: Health Maintenance Topic Date Due Medicare Annual Wellness (AWV) 11/16/2023 Influenza Vaccine (1) 12/24/2023 Mammogram 10/29/2024 Colorectal Cancer Screening 11/21/2028 Advance Care Planning No ACP in place. 1. Medicare annual wellness visit, initial Reviewed all relevant preventative screenings with the patient in detail. Medicare Wellness form completed and will be scanned into patient's chart. All needed testing was ordered. Will continue with yearly Medicare Wellness exams. - CBC and differential - Comprehensive metabolic panel - HEPATITIS C AB W/RFL RNS, PCR W/RFL GENOTYPE,LIPA - Lipid panel - TSH W/REFLEX TO FT4 2. ACP (advance care planning) Patient agreed to discuss advance care planning at today's wellness visit. We discussed that an advance directive is a legal document that only goes into effect if the patient is incapacitated and unable to speak for himself or herself. This would help healthcare providers to ensure that the patient gets the care that he or she wishes to receive. The goal is to provide a patient with the best possible quality of life. Encouraged patient to obtain a living will and durable power of prize coordinator for healthcare. We discussed telling garcia people about their advance directives such as close family members, and requested a copy to scan into the patient's EHR. An advance directive packet was offered to the patient. 3. Difficulty sleeping This is a chronic medical condition that is stable since last assessment. No changes in treatment are suggested at this time. 4. EVIE (obstructive sleep apnea) This is a chronic medical condition that is stable since last assessment. No changes in treatment are suggested at this time. 5. Other chronic pain This is a chronic medical condition that is stable since last assessment. No changes in treatment are suggested at this time. 6. Tension headache This is a chronic medical condition that is stable since last assessment. No changes in treatment are suggested at this time. 7. CPAP (continuous positive airway pressure) dependence This is a chronic medical condition that is stable since last assessment. No changes in treatment are suggested at this time. 8. Moderate persistent asthma without complication ([facility]/HCC) This is a chronic medical condition that is stable since last assessment. No changes in treatment are suggested at this time. 9. Benign hypertension (CMS/HCC) Patient's blood pressure is currently well controlled. Continue with current medications and I will continue to monitor. Goal BP remains less than 130/80. - CBC and differential - Comprehensive metabolic panel - Lipid panel 10. Dysphagia, unspecified type This is a chronic medical condition that is stable since last assessment. No changes in treatment are suggested at this time. 11. Gastroesophageal reflux disease without esophagitis This is a chronic medical condition that is stable since last assessment. No changes in treatment are suggested at this time. 12. Stage 3a chronic kidney disease (HCC) (CMS/HCC) This is a chronic medical condition that is stable since last assessment. No changes in treatment are suggested at this time. Will continue to monitor with routine labs. - Comprehensive metabolic panel 13. Ankylosis, right shoulder This is a chronic medical condition that is stable since last assessment. No changes in treatment are suggested at this time. 14. Inflammation of right sacroiliac joint (CMS/HCC) The patient is seeing a medical supply technician for this condition, treatment is deferred to that specialist. Correspondence from that specialist and any available testing were reviewed during today's visit. 15. Acquired hypothyroidism (CMS/HCC) This is a chronic medical condition that is stable since last assessment. No changes in treatment are suggested at this time. Will continue to monitor with routine labs. - TSH W/REFLEX TO FT4 16. Overweight (BMI 25.0-29.9) Encouraged portion control, decrease simple sugars and carbohydrates, gradually increase activity level. Aim for gradual steady weight loss. 17. Thrombocytosis This is a chronic medical condition that is stable since last assessment. No changes in treatment are suggested at this time. Will continue to monitor with routine labs. - CBC and differential 18. Elevated LDL cholesterol level (CMS/HCC) This is a chronic medical condition that is stable since last assessment. No changes in treatment are suggested at this time. Will continue to monitor with routine labs. - Lipid panel 19. Generalized anxiety disorder (CMS/HCC) This is a chronic medical condition that is stable since last assessment. No changes in treatment are suggested at this time. 20. History of total hysterectomy Pt is s/p hysterectomy. Denies complaints. 21. Hypokalemia This is a chronic medical condition that is stable since last assessment. No changes in treatment are suggested at this time. Will continue to monitor with routine labs. - Comprehensive metabolic panel 22. Retinitis pigmentosa The patient is seeing a medical supply technician for this condition, treatment is deferred to that specialist. Correspondence from that specialist and any available testing were reviewed during today's visit. 23. Seasonal allergies This is a chronic medical condition that is stable since last assessment. No changes in treatment are suggested at this time. 24. Other problems related to lifestyle Pt was born in 1961. She is agreeable to Hep C Screening. - HEPATITIS C AB W/RFL RNS, PCR W/RFL GENOTYPE,LIPA 25. Atherosclerosis of aorta (CMS/HCC) Seen on previous imaging. Will continue to minimize risk factors. Follow up in about 1 year (around 01/09/2025) for Medicare Wellness Visit. Electronically signed by Franny Mcdermott PA-C on January 10, 2024 documented in this encounter [facility] Healthcare Evaluation note Diagnosis Dysphagia, unspecified type- Primary Overweight (BMI 25.0-29.9) Overweight Gastroesophageal reflux disease without esophagitis Esophageal reflux Hoarseness of voice Dysphonia Chronic cough Cough documented in this encounter [facility]* Diagnosis Medicare annual wellness visit, initial- Primary ACP (advance care planning) Other specified counseling Difficulty sleeping Unspecified sleep disturbance EVIE (obstructive sleep apnea) Obstructive sleep apnea (adult) (pediatric) Other chronic pain Tension headache CPAP (continuous positive airway pressure) dependence Dependence on other enabling machine Moderate persistent asthma without complication (CMS/HCC) Benign hypertension (CMS/HCC) Essential hypertension, benign Dysphagia, unspecified type Gastroesophageal reflux disease without esophagitis Esophageal reflux Stage 3a chronic kidney disease (HCC) ([facility]/HCC) Ankylosis, right shoulder Inflammation of right sacroiliac joint ([facility]/HCC) Acquired hypothyroidism ([facility]/HCC) Unspecified hypothyroidism Overweight (BMI 25.0-29.9) Overweight Thrombocytosis Essential thrombocythemia Elevated LDL cholesterol level ([facility]/HCC) Generalized anxiety disorder ([facility]/HCC) Generalized anxiety disorder History of total hysterectomy Hypokalemia Hypopotassemia Retinitis pigmentosa Pigmentary retinal dystrophy Seasonal allergies Allergic rhinitis, cause unspecified Other problems related to lifestyle Atherosclerosis of aorta ([facility]/HCC) Atherosclerosis of aorta documented in this encounter [facility]* Diagnosis Hypokalemia- Primary Hypopotassemia documented in this encounter [facility] HealthcareEvaluation noteNo assessment information availableHolmes County [facility] Work Phone: Evaluation note* Diagnosis Hypokalemia Hypopotassemia documented in this encounter [facility] HealthcareEvaluation note* Diagnosis Near syncope- Primary Hypokalemia Hypopotassemia EVIE (obstructive sleep apnea) Obstructive sleep apnea (adult) (pediatric) CPAP (continuous positive airway pressure) dependence Dependence on other enabling machine Benign hypertension ([facility]/HCC) Essential hypertension, benign Degeneration of intervertebral disc of lumbar region with discogenic back pain Chronic pain of both knees Stress reaction Unspecified acute reaction to stress Chronic kidney disease, stage 3a (HCC) ([facility]/HCC) documented in this encounter [facility] HealthcareHistory and physical note Author Sivakumar Juárez [facility] Note Date/Time May 16, 2024 2 :47pm [facility] [address] [place] [address] Gastroenterology H&P Signed Patient: Анна Amaya V MR#: [id number] : 1960 Acct:[id number] Age/Sex: 63 / F Adm Date: 5 Loc: Room: Type: [facility] Attending Dr: Sivakumar Juárez MD Copies to: MD Erika Lowry MD~ Date of Service: 05/16/2024 HISTORY & PHYSICAL: Patient's history with special attention to the cardiovascular, pulmonary systems and the current problem was reviewed with the patient immediately prior to the procedure. Present medications and doses reviewed in the EMR. Allergies and pertinent laboratory tests were also reviewedat this time in the EMR. The physical examination, as below, was then performed. Indication, assessment and HPI: 63-year-old female here for EGD for evaluation of dysphagia Family history of GI malignancy? No PHYSICAL EXAMINATION General appearance: NAD Skin: No jaundice Head: NC/AT Eyes: Anicteric Neck: Supple Lungs: Normal respiratory effort, no use of accessory muscles Abdomen: nondistended Neuro: Ox3. REVIEW OF SYSTEMS Constitutional: Denies malaise, fevers Cardiovascular: Denies chest pain, palpitations Respiratory: Denies shortness of breath, wheezing Gastrointestinal: As per HPI Genitourinary: Denies dysuria, polyuria Musculoskeletal: Denies joint swelling, joint stiffness Neurological: Denies confusion, numbness, tingling Endocrine: Denies fatigue Written informed consent obtained from the patient. Risks (including but not limited to perforation, infection, bloating, bleeding, need for emergent surgeryand loss of life), benefits and alternatives explained and questions answered. The patient verbalized understanding. Based on history patient is an appropriate candidate for the procedure. Sivakumar Juárez M.D. Documented By: Sivakumar Juárez MD 05/16/24 132 Signed By: <Electronically signed by Sivakumar Juárez MD> 05/16/24 1326 [facility] Work Phone: Summary Purpose Family History Relationship Condition Age at Onset Recorded Date/T anil father Unknown Motor vehicle accident Unknown mother Hypertension Unknown Unknown Disorder of kidney Unknown Advance Directives Advance Directive Response Recorded Date/ Time Advance Directives No May 09, 2019 12:12pm Chief Complaint and Reason for Visit Chief Complaint Admit Date Dysphagia May 16, 2024 1 1:20am Dysphagia May 16, 2024 1 :26pm Additional Source Comments INFORMATION SOURCE (unrecogn ized section and content) DATE CREATED AUTHOR 09/10/2021 [facility] dical Specialist DATE CREATED AUTHOR AUTHOR'S ORGANIZ ATION 10/23/2021 [facility] DATE CREATED AUTHOR AUTHOR'S ORGANIZ ATION 01/24/2024 [facility] DATE CREATED AUTHOR AUTHOR'S ORGANIZ ATION 05/28/2024 [facility] DATE CREATED AUTHOR AUTHOR'S ORGANIZ ATION 06/11/2024 [facility] dical Specialists EPIC Care Teams (unrecognized sec tion and content) Chief Executive Or Managing Director Relationship Specialty Start Date End Date Erika Zee MD [address] [facility] [address] [place] [address] PCP - General Family Medicine 11/15/22 Zenaida Rangel, JUMPBASTING LINING BASTER [address] [facility] [address] [place] [address] PCP - Selene IVORY 10/23/23 Chief Executive Or Managing Director Relationship Specialty Start Date End Date Erika Zee MD [address] [facility] [address] [place] [address] PCP - General Family Medicine 11/15/22 Dorita Dye NP [address] [facility] , [facility] [address] [place] [address] PCP - Selene IVORY 12/24/23 Chief Executive Or Managing Director Relationship Specialty Start Date End Date Erika Zee MD [address] [facility] [address] [place] [address] PCP - General Family Medicine 11/15/22 Dorita Dye NP [address] [facility] , [address] [phone] PCP - Selene IVORY 12/24/23 Chief Executive Or Managing Director Relationship Specialty Start Date End Date Erika Zee MD [address] [facility] [address] [place] [address] PCP - General Family Medicine 11/15/22 Zenaida Rangel, JUMPBASTING LINING BASTER [address] [facility] [address] [place] [address] PCP - Selene IVORY 10/23/23 Chief Executive Or Managing Director Relationship Specialty Start Date End Date Erika Zee MD [address] [facility] [address] [place] [address] PCP - General Family Medicine 11/15/22 Zenaida Rangel, JUMPBASTING LINING BASTER [address] [facility] [address] [place] [address] PCP - Selene IVORY 10/23/23 Chief Executive Or Managing Director Relationship Specialty Start Date End Date Erika Zee MD [address] [facility] [address] [place] [address] PCP - General Family Medicine 11/15/22 Zenaida Rangel, JUMPBASTING LINING BASTER [address] [facility] [address] [place] [address] PCP - Selene IVORY 10/23/23 Chief Executive Or Managing Director Relationship Specialty Start Date End Date Erika Zee MD [address] [facility] [address] [place] [address] PCP - General Family Medicine 11/15/22 Zenaida Rangel, JUMPBASTING LINING BASTER [address] [facility] [address] [place] [address] PCP - Selene IVORY 10/23/23 Team Status: Active Member Role Status Dates Erika Zee MD Primary Care Provider Active Team Status: Inactive Member Role Status Dates Erika Zee MD Primary Care Provider Active S tart: May 16, 2024 End: May 16, 2024 Sivakumar Juárez MD Attending Provider Active Start: May 16, 2024 End: May 16, 2024 Team Status: Active Member Role Status Dates Erika Zee MD Primary Care Provider Active S tart: May 16, 2024 Sivakumar Juárez MD Attending Provider, Other Provider Active Start: May 16, 2024 Chief Executive Or Managing Director Relationship Specialty Start Date End Date Erika Zee MD [address] [facility] [address] [place] [address] PCP - General Family Medicine 11/15/22MondayBina LPN [address] [place] [address] Licensed Practical Nurse Family Medicine 04/10/24 Chief Executive Or Managing Director Relationship Specialty Start Date End Date Erika Zee MD [address] [facility] [address] [place] [address] PCP - General Family Medicine 11/15/22 Rosa Edwards, RN Licensed Practical Nurse Family Medicine 05/31/24 Chief Executive Or Managing Director Relationship Specialty Start Date End Date Erika Zee MD [address] [facility] [address] [place] [address] PCP - General Family Medicine 11/15/22 Rosa Edwards, RN Licensed Practical Nurse Family Medicine 05/31/24 Reason for Visit (unrecogniz ed section and content) Reason Comments Potassium Check FOR RECORDS PERTAINING TO PATIENTS WHO ARE [...] BE BASED ON THE PRIMARY CLINICAL RECORDS. [facility] [facility]. provides no warranty or guarantee of the accuracy or completeness of information in this document.
[2024-06-14 10:51] LABS: Anion Gap 8.6; BUN Creatinine Ratio 14.7; Calcium 9.3 mg/dL (8.5-10.1); Carbon Dioxide 31.7 mmol/L (21.0-32.0); Chloride 103 mmol/L (98-107); Estimated GFR (African America 51 (>=60 mL/min/1.73m^2); Estimated GFR (Non-African Ame 42 (>=60 mL/min/1.73m^2); Glucose 119 mg/dL (74-106); Potassium 3.3 mmol/L (3.5-5.1); Sodium 140 mmol/L (136-145)
--- NOTE | 2024-06-14 11:05 | XR_ITS ---
The [address] [address] Patient Name: YOUSUF ANGUIANO MRN: [id number] date: 1960 Sex: F Assigned Patient Location: LAB Current Patient Location: LAB Accession/Order Number: [id number] Exam Date: 06/14/2024 13:05 Report Date: 06/14/2024 13:13 At the request of: FRANNY MCDERMOTT Procedure: XR knee HOLLY 3V BILATERAL KNEES - 3 views each COMPARISON: None CLINICAL DATA: Chronic bilateral knee pain, greater on the right. No reported injury. Weightbearing AP as well as lateral and internal oblique views were obtained on both sides. No acute fractures are identified. There is no dislocation though there could be lateral subluxation of the patella on the AP view. There is no disproportionate joint space narrowing. There is squaring off of the articular margins. No knee effusion or focal soft tissue swelling is seen. XR/XR knee HOLLY 3V IMPRESSION: MINOR DEGENERATIVE CHANGE. POSSIBLE LEFT PATELLAR SUBLUXATION. A FOLLOW-UP SUNRISE VIEWS COULD BE OBTAINED, IF WARRANTED. Impression dictated by: Franny Mayberry M.D.06/14/2024 1:13 PM Dictation Location: [facility]ace[facility]Me Electronically authenticated by: [id number] Y Date: 06/14/2024 13:13
== END 2024-06-14 10:21 | disposition home or self-care (01) ==
LOC: LAB 10:22
PROVIDERS: PCP Family Medicine; Visit Provider Physician Assistant
DX: R55 Syncope and collapse (principal); E87.6 Hypokalemia; I10 Essential (primary) hypertension; M25.561 Pain in right knee; M25.562 Pain in left knee; G89.29 Other chronic pain
CPT/HCPCS: 36415; 73562; 80048

== ENCOUNTER 2024-08-03 12:13 | Emergency (ER) | payer MEDICARE, SELFPAY ==
[2024-08-03 12:18] VITALS: BP 134/89; PULSE 96; TEMP 36.8; O2SAT 96; BMI 29.3
--- OUTSIDE RECORDS SUMMARY | 2024-08-03 12:21 | XMS_ITS | CCD ---
Author Organization [facility] Care Team Providers Care Tail Edger Name Role Phone YAYO, DR VILLEGAS Primary Care Unavailable HEMMER, DR FRANNY Thomas Admitting Unavailable HEMMER, DR FRANNY Thomas Attending Unavailable YAYO, DR VILLEGAS Primary [...] Unavailable YAYO, DR VILLEGAS Primary Care Unavailable Erika Zee MD Primary Care Provider Zenaida Rangel NP Unavailable Dorita Dye NP Unavailable Erika Zee MD Primary Care Provider Sivakumar Juárez MD Attending Provider Sivakumar Juárez Attending Unavailable Franck, Imadia Admitting Unavailable Erika Zee Primary Care Unavailable Monday LIFESTYLE BLOCK FARMER, Bina Unavailable FRANNY MCDERMOTT Attending Unavailable ZENAIDA RANGEL Attending Unavailable ERROL BURGESS Attending Unavailable DORITA DYE Attending Unavailable ERROL BURGESS Referring Unavailable SANDEEP HARRELL Attending Unavailable DORITA DYE Attending Unavailable FRANNY MCDERMOTT Attending Unavailable FRANNY MCDERMOTT Attending Unavailable Rosa Edwards RN Unavailable Donaldo Mills Attending Unavailable Al Shweiki, Donaldo Referring Unavailable Donaldo Mills Attending Unavailable Donaldo Mills Referring Unavailable Donaldo Mills MD Unavailable Unavailabl e Medications Current Medications Medication Drug Class(es) Dates Sig (Normalized) Sig (Original) [id number] 200 actuat albuterol 0.09 mg/actuat metered dose inhaler (17 sources) beta2-Adrenergic Agonist Start: 02-08-2024 take 2 [...] 12:00am busPIRone hydrochloride 5 mg oral tablet (4 sources) Start: 06-10-2024 take 1 tablet by mouth twice daily as needed for anxiety busPIRone (Buspar) 5 MG tablet Indications: Stress reaction Take 1 tablet (5 mg) by mouth 2 (two) times a day as needed (Anxiety) 60 tablet 2 06/10/2024 Active chlorhexidine gluconate 1.2 mg/ml mouthwash (15 sources) Start: 01-03-2024 chlorhexidine (Peridex) 0.12 % solution Use 15 mL in the mouth or throat if needed for wound care 01/03/2024 Active cyclobenzaprine hydrochloride 10 mg oral tablet (4 sources) Muscle Relaxant take 1 tablet by [...] 2019 12:00am hydroCHLOROthiazide 25 mg oral tablet (17 sources) Thiazide Diuretic Start: 06-06-2019 take 1 tablet by mouth once daily hydroCHLOROthiazide (HYDRODiuril) 25 MG tablet Indications: Benign hypertension (CMS/HCC) Take 1 tablet (25 mg) by mouth Daily 100 tablet 3 02/08/2024 Active levothyroxine sodium 0.025 mg oral tablet (17 sources) l-Thyroxine Start: 03-15-2024 take 1 tablet by mouth in the morning levothyroxine (Synthroid, Levoxyl) 25 MCG tablet Indications: Acquired hypothyroidism (CMS/HCC) Take 1 tablet (25 mcg) by mouth in the morning. Take on an empty stomach.. 100 tablet 3 03/15/2024 Active Start: 10-30-2023 take 1 tablet by hermelinda in the morning levothyroxine (Synthroid, Levoxyl) 25 MCG tablet Indications: Acquired hypothyroidism (CMS/HCC) Take 1 tablet (25 mcg) by mouth in the morning. Take on an empty stomach.. 90 tablet 1 10/30/2023 Active take 1 capsule by mo ut once daily levothyroxine 25 mcg capsule take 1 capsule by oral route every day 25 MCG - Active montelukast 10 mg oral tablet (17 sources) Leukotriene Receptor Antagonist Start: 06-06-2019 take 1 tablet by mouth at bedtime montelukast (Singulair) 10 MG tablet Indications: Seasonal allergies Take 1 tablet (10 mg) by mouth at bedtime 100 tablet 3 03/15/2024 Active pantoprazole 40 mg delayed release oral tablet (17 sources) Proton Pump Inhibitor Start: 06-06-2019 take 1 tablet by mouth once daily pantoprazole (ProtoNix) 40 MG EC tablet Indications: Gastroesophageal reflux disease without esophagitis TAKE 1 tablet Orally daily 100 tablet 3 09/06/2023 Active potassium chloride 20 meq extended release oral tablet (15 sources) Start: 06-14-2024 take 1 tablet by mouth in the morning potassium chloride CR (K-Tab) 20 MEQ ER tablet Indications: Hypokalemia Take 1 tablet (20 mEq) by mouth in the morning and 1 tablet (20 mEq) before bedtime. Do not crush, chew, or split.. 06/14/2024 Active Start: 01-16-2024 End: 05-29-2024 take 1 tablet [...] (Other) rosuvastatin calcium 10 mg oral tablet (17 sources) HMG-CoA Reductase Inhibitor Start: 08-22-2023 take 1 tablet by mouth once daily rosuvastatin (Crestor) 10 MG tablet Indications: Elevated LDL cholesterol level (CMS/HCC) Take 1 tablet (10 mg) by mouth 1 (one) time each day at the same time 100 tablet 3 08/22/2023 Active vitamin a 2.4 mg oral capsule (1 source) Vitamin A vitamin A 2,400 mcg capsule - Active Completed/Discontinued Medications Medication Drug Class(es) Dates Sig (Normalized) Sig (Original) ibuprofen 800 mg oral tablet (3 sources) Nonsteroidal Anti-inflammatory Drug Start: 4 End: 4 take 1 tablet [...] Date Documented Da te Episodic/Chronic Anxiety disorders (19 sources) Generalized anxiety disorder; Translations: [Generalized anxiety disorder] Onset: 3 11-14-2022 Chronic Asthma (17 sources) Uncomplicated moderate persistent asthma; Translations: [Moderate persistent asthma, uncomplicated] Onset: 3 11-14-2022 Chronic Blindness and vision defects (9 sources) Generalized contraction of visual field, bilateral; Translations: [Generalized visual field contraction or constriction] Episodic Cataract (13 sources) Presence of intraocular lens; Translations: [Age-related nuclear cataract, bilateral] Onset: Chronic Chronic kidney disease (19 sources) Chronic kidney disease stage 3A ; Translations: [Stage 3a chronic kidney disease (HCC)] Onset: 3 11-14-2022 Chronic Disorders of lipid metabolism (17 sources) Raised low density lipoprotein cholesterol; Translations: [Pure hypercholesterolemia, unspecified] Onset: 3 11-14-2022 Chronic Esophageal disorders (19 sources) Gastroesophageal reflux disease; Translations: [Gastro-esophageal reflux disease without esophagitis] Onset: 3 11-14-2022 Chronic Essential hypertension (19 sources) Benign hypertension; Translations: [Essential (primary) hypertension] Onset: 3 11-14-2022 Chronic Headache; including migraine (17 sources) Tension-type headache; Translations: [Tension-type headache, unspecified, not intractable] Onset: 3 11-14-2022 Chronic Other eye disorders (7 sources) Other vitreous opacities, bilateral Chronic Other eye disorders (2 sources) Vitreous degeneration, bilateral Chronic Other eye disorders (2 sources) Vitreous degeneration Chronic Other gastrointestinal disorders (1 source) Dysphagia, unspecified; Translations: [Dysphagia, unspecified] Onset: Episodic Other lower respiratory disease (2 sources) Chronic cough; Translations: [Chronic cough] 04-02-2024 Episodic Other nervous system disorders (17 sources) Chronic pain; Translations: [Other chronic pain] Onset: 3 11-14-2022 Chronic Other non-traumatic joint disorders (17 sources) Joint ankylosis of the shoulder region; Translations: [Ankylosis, right shoulder] Onset: 3 11-14-2022 Chronic Other non-traumatic joint disorders (6 sources) Pain in right knee; Translations: [Pain in joint, lower leg] Onset: 5 06-10-2024 Episodic Other screening for suspected conditions (not mental disorders or infectious disease) (4 sources) Encounter for screening mammogram for malignant neoplasm of breast; Translations: [ENC SCR MAMMO MALIG NEOPLASM BREAST] Onset: 2 Episodic Other upper respiratory disease (17 sources) Seasonal allergy; Translations: [Other seasonal allergic rhinitis] Onset: 3 11-14-2022 Chronic Other upper respiratory disease (2 sources) Hoarse; Translations: [Dysphonia] 04-02-2024 Episodic Peripheral and visceral atherosclerosis (2 sources) Atherosclerosis of aorta; Translations: [Atherosclerosis of aorta] 01-10-2024 Chronic Residual codes; unclassified (4 sources) Obstructive sleep apnea (adult) (pediatric); Translations: [OBSTRUCTIVE SLEEP APNEA] Onset: 1 Chronic Residual codes; unclassified (19 sources) Obstructive sleep apnea syndrome; Translations: [Obstructive sleep apnea (adult) (pediatric)] Onset: 3 11-14-2022 Chronic Residual codes; unclassified (19 sources) Dependence on continuous positive airway pressure ventilation; Translations: [Dependence on other enabling machines and devices] Onset: 3 11-15-2022 Chronic Retinal detachments; defects; vascular occlusion; and retinopathy (20 sources) Retinitis pigmentosa; 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] Onset: 8 Resolved: 5 11-14-2022 Chronic Spondylosis; intervertebral disc disorders; other back problems (20 sources) Inflammation of sacroiliac joint; Translations: [Sacroiliitis, not elsewhere classified] Onset: 3 11-14-2022 Chronic Syncope (2 sources) Near syncope; Translations: [Syncope and collapse] 06-10-2024 Episodic Thyroid disorders (17 sources) Acquired hypothyroidism; Translations: [Hypothyroidism, unspecified] Onset: 3 11-14-2022 Chronic Unclassified (3 sources) CONTACT W/AND (SUSP) EXPOS COVID-19; Translations: [CONTACT W/AND (SUSP) EXPOS COVID-19] Onset: 1 Past or Other Problems Problem Classification Problem Date Documented Da te Episodic/Chronic Administrative/social admission (2 sources) Patient encounter status; Translations: [Other specified counseling] 09-18-2024 Episodic Fluid and electrolyte disorders (20 sources) Hypokalemia; Translations: [Hypokalemia] Onset: 11-14-2022 11-14-2022 Episodic Mood disorders (14 sources) Mood disorders Onset: 01-06-2024 01-10-2024 Neoplasms of unspecified nature or uncertain behavior (17 sources) Thrombocytosis; Translations: [Thrombocytosis] Onset: 11-14-2022 11-14-2022 Episodic Other gastrointestinal disorders (19 sources) Dysphagia; Translations: [Dysphagia, unspecified] Onset: 11-14-2022 11-14-2022 Episodic Other nutritional; endocrine; and metabolic disorders (19 sources) Body mass index 25-29 - overweight; Translations: [Overweight] Onset: 11-14-2022 11-14-2022 Episodic Residual codes; unclassified (17 sources) Difficulty sleeping ; Translations: [Sleep disorder, unspecified] Onset: 11-15-2022 11-15-2022 Episodic Residual codes; unclassified (2 sources) Other problems related to lifestyle; Translations: [Other problems related to lifestyle] 01-10-2024 Episodic Unclassified (1 source) CONTACT W/AND (SUSP) EXPOS COVID-19; Translations: [CONTACT W/AND (SUSP) EXPOS COVID-19] Onset: 01-22-2021 Unclassified (1 source) Pigmrntary retinal dystrophy (chief complaint) Onset: 02-15-2023 Unclassified (1 source) pigmentary retinal dystrophy (chief complaint) decreased vision (chief complaint) Onset: 11-25-2020 Unclassified (1 source) pigmentary retinal dystrophy (chief complaint) decrease in vision (chief complaint) Onset: 12-04-2019 Unclassified (1 source) pigmentary retinal dystrophy (chief complaint) flashes (chief complaint) Onset: 12-12-2018 Unclassified (1 source) pigmentary retinal dystrophy (chief complaint) stable vision (chief complaint) Onset: 11-01-2017 Unclassified (1 source) Pigmentary Retinal Dystrophy (chief complaint) flashes (chief complaint) hard time adjusting from light to dark (chief complaint) Onset: 10-26-2016 Unclassified (2 sources) RP (chief complaint) decreased vision (chief complaint) Onset: 03-12-2014 Resolved: 11-11-2015 Unclassified (1 source) RP (chief complaint) decreased vision (chief complaint) squigle white lights (chief complaint) Onset: 11-19-2014 Results Test Name Value Interpretation Reference Range Facility ALL BASIC METABOLIC PANELon 06-14-2024 Anion gap [Moles/Vol] 8.6 mmol/L [facility] Calcium [Mass/Vol] 9.3 mg/dL 8.5 - 10. 1 mg/dL [facility] Chloride [Moles/Vol] 103 mmol/L 98 - 10 7 mmol/L [facility] CO2 [Moles/Vol] 31.7 mmol/L 21.0 - 32.0 mmol/L [facility] Creatinine [Mass/Vol] 1.29 mg/dL High 0.55 - 1.02 mg/dL [facility] GFR/1.73 sq M.predicted CKD-EPI (S/P/Bld) [Vol rate/Area] 51 Low >=60 mL/min/1.73m 2 [facility] Glucose [Mass/Vol] 119 mg/dL High 74 - 106 mg/dL [facility] Interpretation and review of laboratory results Abnormal [facility] Potassium [Moles/Vol] 3.3 mmol/L Low 3.5 - 5.1 mmol/L [facility] Sodium [Moles/Vol] 140 mmol/L 136 - 145 mmol/L [facility] TBH EGFR-NON AF BOTSWANAN 42 Low >=60 mL/min/1.73m 2 [facility] Urea nitrogen [Mass/Vol] 19 mg/dL High 7.0 - 18.0 mg/dL [facility] Urea nitrogen/Creatinine [Mass ratio] 14.7 mg/mg [facility]on [facility]-14-[address] [address] XRay Report Signed Patient: АННА AMAYA V MR#: [id number] : 1960 Acct:[id number] Age/Sex: 63 / F ADM Date: 06/14/24 Loc: LAB Attending Dr: FRANNY MCDERMOTT Ordering Physician: FRANNY MCDERMOTT Date of Service: 06/14/24 Procedure(s): XR knee HOLLY 3V Accession Number(s): [id number] cc: ERIKA ZEE ; FRANNY MCDERMOTT [address] [place] [id number] Patient Name: АННА AMAYA MRN: [facility]:[id number] date: 1960 Sex: F Assigned Patient Location: LAB Current Patient Location: LAB Accession/Order Number: [id number] Exam Date: 06/14/2024 13:05 Report Date: 06/14/2024 13:13 At the request of: FRANNY MCDERMOTT Procedure: XR knee HOLLY 3V BILATERAL KNEES - 3 views each COMPARISON: None CLINICAL DATA: Chronic bilateral knee pain, greater on the right. No reported injury. Weightbearing AP as well as lateral and internal oblique views were obtained on both sides. No acute fractures are identified. There is no dislocation though there could be lateral subluxation of the patella on the AP view. There is no disproportionate joint space narrowing. There is squaring off of the articular margins. No knee effusion or focal soft tissue swelling is seen. XR/XR knee HOLLY 3V IMPRESSION: MINOR DEGENERATIVE CHANGE. POSSIBLE LEFT PATELLAR SUBLUXATION. A FOLLOW-UP SUNRISE VIEWS COULD BE OBTAINED, IF WARRANTED. Impression dictated by: Franny Mayberry M.D.06/14/2024 1:13 PM Dictation Location: [place] [address] Electronically authenticated by: [id number] Y Date: 06/14/2024 13:13 Dictated By: Franny Mayberry M.D. Signed By: 06/14/24 1316 DD/ 1313 TD/TT: Healthcare Consultant: [facility] Radiology, Radiologist, MD - 06/14/2024 [facility] [place] [id number] XRay Report Signed Patient: АННА AMAYA V MR#: [id number] : 1960 Acct:[id number] Age/Sex: 63 / F ADM Date: 06/14/24 Loc: LAB Attending Dr: FRANNY MCDERMOTT Ordering Physician: FRANNY MCDERMOTT Date of Service: 06/14/24 Procedure(s): XR knee HOLLY 3V Accession Number(s): [id number] cc: ERIKA ZEE ; FRANNY MCDERMOTT [address] [address] Patient Name: АННА AMAYA MRN: [id number] date: 1960 Sex: F Assigned Patient Location: LAB Current Patient Location: LAB Accession/Order Number: [id number] Exam Date: 06/14/2024 13:05 Report Date: 06/14/2024 13:13 At the request of: FRANNY MCDERMOTT Procedure: XR knee HOLLY 3V BILATERAL KNEES - 3 views each COMPARISON: None CLINICAL DATA: Chronic bilateral knee pain, greater on the right. No reported injury. Weightbearing AP as well as lateral and internal oblique views were obtained on both sides. No acute fractures are identified. There is no dislocation though there could be lateral subluxation of the patella on the AP view. There is no disproportionate joint space narrowing. There is squaring off of the articular margins. No knee effusion or focal soft tissue swelling is seen. XR/XR knee HOLLY 3V IMPRESSION: MINOR DEGENERATIVE CHANGE. POSSIBLE LEFT PATELLAR SUBLUXATION. A FOLLOW-UP SUNRISE VIEWS COULD BE OBTAINED, IF WARRANTED. Impression dictated by: Franny Mayberry M.D.06/14/2024 1:13 PM Dictation Location: [place] [address] Electronically authenticated by: [id number] Y Date: 06/14/2024 13:13 Dictated By: Franny Mayberry M.D. Signed By: 06/14/24 1316 DD/ 1313 TD/TT: Healthcare Consultant: [facility] Rad[facility] Study observation (narrative) [facility] XR KNEE HOLLY 3VOrdered By: Ra garza Radiology on 06-14-2024 [facility] Esph[employer] Work Phone: Dayo 05-16-2024 L - -------- Specimen: [id number] Received: 05/16/24 Status: LALY Dougherty Num: [id number] Spec Type: Surgical Subm Dr: Sivakumar Juárez MD Tissues: A Soft Tissue Mass - Biopsy (HIATAL HERNIA POLYP) B Gastric Biopsy (GASTRIC BX) C Esophagus Biopsy (ESOPHAGUS BX) Procedures: HE/8, Gross/Micro L5, Gross/Micro L4/2, H PYLORI/2 -------- Age/ Patient Sex Location Account Attending Physician -------- Анна Amaya V 63/F [id number] Sivakumar Juárez MD -------- SPEC NUM: [id number] RECD: 05/16/24 STATUS: LALY ALEMANAgnes NUM: [id number] KARAN: 05/16/[address] [facility] [address]: Sivakumar Juárez MD ENTERED: 05/16/[address]: SPEC TYPE: Surgical DEPT: S ENTERED BY: [id number] RECV BY: [id number] ORDERED: HE/8, Gross/Micro L5, Gross/Micro L4/2, H [...] -------- Specimen: [id number] Received: 05/16/24 Status: LALY Alemanagnes Num: [id number] Spec Type: Surgical Subm Dr: Sivakumar Juárez MD Tissues: A Soft Tissue Mass - Biopsy (HIATAL HERNIA POLYP) B Gastric Biopsy (GASTRIC BX) C Esophagus Biopsy (ESOPHAGUS BX) Procedures: HE/8, Gross/Micro L5, Gross/Micro L4/2, H PYLORI/2 -------- Patient: Анна Amaya V [id number] (Continued) -------- Specimen: [id number] Received: 05/16/24 (Continued) Signed (signature on file) Allison Chi MD 05/20/24 1410 -------- Specimen: [id number] Received: 05/16/24 Status: LALY Dougherty Num: [id number] Spec Type: Surgical Subm Dr: Sivakumar Juárez MD Tissues: A Soft Tissue Mass - Biopsy (HIATAL HERNIA POLYP) B Gastric Biopsy (GASTRIC BX) C Esophagus Biopsy (ESOPHAGUS BX) Procedures: HE/8, Gross/Micro L5, Gross/Micro L4/2, H PYLORI/2 -------- Patient: Анна Amaya V [id number] (Continued) -------- Specimen: [id number] Received: 05/16/24 (Continued) Gross Description Part A [...] specimen entirely submitted in A2. (2, ns, S2 A)JG Part B is received in formalin labeled with the patients name, date of , and gastric BX are 2 burr-mac, focally erythematous, friable, 0.3 cm each in greatest dimension tissue bits. (1, ns, S2 B)JG Part See is received in formalin labeled with the patients name, date of , and esophagus BX are 2 pale mac, focally erythematous, feathery, 0.1 to 0.3 cm in greatest dimension tissue bits. The specimen is entirely submitted in a single cassette. (1, ns, C) CPT Codes 35805v4, 45629 -------- -------- Specimen: [id number] Received: 05/16/24 Status: LALY Dougherty Num: [id number] Spec Type: Surgical Subm Dr: Sivakumar Juárez MD Tissues: A Soft Tissue Mass - Biopsy (HIATAL HERNIA POLYP) B Gastric Biopsy (GASTRIC BX) C Esophagus Biopsy (ESOPHAGUS BX) Procedures: HE/8, Gross/Micro L5, Gross/Micro L4/2, H PYLORI/2 -------- Patient: Анна Amaya V F01 (more content not included)... Normal [facility] ALL BASIC METABOLIC PANELon 01-25-2024 Anion gap [Moles/Vol] 14.2 mmol/L [facility] Calcium [Mass/Vol] 9.4 mg/dL 8.5 - 10. 1 mg/dL [facility] Chloride [Moles/Vol] 101 mmol/L 98 - 10 7 mmol/L [facility] CO2 [Moles/Vol] 26.3 mmol/L 21.0 - 32.0 mmol/L [facility] Creatinine [Mass/Vol] 1.18 mg/dL High 0.55 - 1.02 mg/dL [facility] GFR/1.73 sq M.predicted CKD-EPI (S/P/Bld) [Vol rate/Area] 56 Low >=60 mL/min/1.73m 2 [facility] Glucose [Mass/Vol] 108 mg/dL High 74 - 106 mg/dL [facility] Interpretation and review of laboratory results Abnormal [facility] Potassium [Moles/Vol] 3.5 mmol/L 3.5 - 5.1 mmol/L [facility] Sodium [Moles/Vol] 138 mmol/L 136 - 145 mmol/L [facility] TBH EGFR-NON AF BOTSWANAN 46 Low >=60 mL/min/1.73m 2 [facility] Urea nitrogen [Mass/Vol] 17.0 mg/dL 7.0 - 18.0 mg/dL [facility] Urea nitrogen/Creatinine [Mass ratio] 14.4 mg/mg [facility] CBC WITH AUTO DIFFon BASOPHILS ABSOLUTE AUTO 0.0 [facility] Basophils/100 WBC (Bld) 0.4 % 0.2 - 2.0 % [facility] Eosinophils/100 WBC (Bld) 1.8 % 0.9 - 7.0 % [facility] Erythrocyte distribution width (RBC) [Ratio] 14.3 % 11.0 - 15.0 % [facility] Hematocrit (Bld) [Volume fraction] 40.3 % 36.0 - 48.0 % [facility] Hemoglobin (Bld) [Mass/Vol] 12.7 g/dL 12.0 - 16.0 g/dL [facility] IMMATURE GRANULOCYTES ABS AUTO 0.01 [facility] Immature granulocytes/100 WBC (Bld) 0.1 % 0.0 - 0.5 % [facility] Interpretation and review of laboratory results Abnormal [facility] LYMPHOCYTES ABSOLUTE AUTO 2.4 [facility] Lymphocytes/100 WBC (Bld) 32.9 % 20.5 - 60.0 % [facility] MCH (RBC) [Entitic mass] 30.0 pg 26.7 - 34.0 pg [facility] MCHC (RBC) [Mass/Vol] 31.5 g/dL 29.9 - 35.2 g/dL [facility] MCV (RBC) [Entitic vol] 95.0 fL 81.0 - 99.0 fL [facility] MONOCYTES ABSOLUTE AUTO 0.4 [facility] Monocytes/100 WBC (Bld) 6.0 % 1.7 - 12.0 % [facility] NEUTROPHILS ABSOLUTE AUTO 4.3 [facility] Neutrophils/100 WBC (Bld) 58.8 % 43.0 - 75.0 % [facility] Platelet mean volume (Bld) [Entitic vol] 8.6 fL Low 9.5 - 13.5 fL [facility] Healthc are [facility] EO # 0.1 [facility] TB PLT 386 [facility] TB RBC 4.24 [facility] TB WBC 7.4 [facility] MG MAMM SCREEN 3D HOLLY CADon 10-20-2021 MG MAMM SCREEN 3D HOLLY CAD Patient: АННА AMAYA V. Exam Date: 10/20/2021 : 1960 Gender:F Ordering : DR ERIKA ZEE M.D. Admission #: [id number] Family : Order #: [id number] CLICK HERE TO VIEW EXAM RADIOLOGY REPORT [...] Treatments None Family Cancers None LOCATION: [facility] BREAST COMPOSITION: Scattered areas fibroglandular density. [...] Casey MD on 10/20/2021 at 09:58 Normal [facility] TSH w/ Reflex to Free T4on 0 09-07-2021 TSH 1.990 uIU/mL Normal 0.400-4.500 [facility] Pretzel Cooker Comment on above: Performed By: #### T SH reflex FT4 #### [facility] [address] [place], [place] [id number] Complete Blood Count with Au to Diffon 07-27-2021 Basophils (Bld) [#/Vol] 0.05 10*3/uL Normal 0.00-0.20 [facility] Specialist Comment on above: Performed By: #### L IPD, TSH reflex FT4, CMP, FT4, CBCAD #### [facility] [address] [place], [place] [id number] Basophils/100 WBC (Bld) 0.9 % Normal [facility] Specialist Comment on above: Performed By: #### L IPD, TSH reflex FT4, CMP, FT4, CBCAD #### [facility] [address] [place], [place] [id number] Eosinophils (Bld) [#/Vol] 0.41 10*3/uL Normal 0.02-0.50 [facility] Specialist Comment on above: Performed By: #### L IPD, TSH reflex FT4, CMP, FT4, CBCAD #### [facility] [address], [place] [id number] Eosinophils/100 WBC (Bld) 7.2 % Normal [facility] Specialist Comment on above: Performed By: #### L IPD, TSH reflex FT4, CMP, FT4, CBCAD #### [facility] [address] [place], [place] [id number] Erythrocyte distribution width (RBC) [Ratio] 13.4 % Normal 11.0-15.0 [facility] Specialist Comment on above: Performed By: #### L IPD, TSH reflex FT4, CMP, FT4, CBCAD #### [facility] [address] [place], [place] [id number] Hematocrit (Bld) [Volume fraction] 41.2 % Normal 35.0-47.0 [facility] Specialist Comment on above: Performed By: #### L IPD, TSH reflex FT4, CMP, FT4, CBCAD #### [facility] [address], [place] [id number] Hemoglobin (Bld) [Mass/Vol] 13.1 g/dL Normal 11.6-15.5 [facility] Specialist Comment on above: Performed By: #### L IPD, TSH reflex FT4, CMP, FT4, CBCAD #### [facility] [address] [place], [place] [id number] Lymphocytes (Bld) [#/Vol] 1.8 10*3/uL Normal 0.9-3.9 [facility] Specialist Comment on above: Performed By: #### L IPD, TSH reflex FT4, CMP, FT4, CBCAD #### [facility] [address], [place] [id number] Lymphocytes/100 WBC (Bld) 31.8 % Normal [facility] Specialist Comment on above: Performed By: #### L IPD, TSH reflex FT4, CMP, FT4, CBCAD #### [facility] [address] [place], [place] [id number] MCH (RBC) [Entitic mass] 29.3 pg Normal 27.0-33.0 [facility] Specialist Comment on above: Performed By: #### L IPD, TSH reflex FT4, CMP, FT4, CBCAD #### [facility] [address], [place] [id number] MCHC (RBC) [Mass/Vol] 31.8 g/dL Low 32.0-36.0 [facility] Specialist Comment on above: Performed By: #### L IPD, TSH reflex FT4, CMP, FT4, CBCAD #### [facility] [address], [place] [id number] MCV (RBC) [Entitic vol] 92 fL Normal 80-100 [facility] Comment on above: Performed By: #### L IPD, TSH reflex FT4, CMP, FT4, CBCAD #### [facility] [address], [place] [id number] Monocytes (Bld) [#/Vol] 0.5 10*3/uL Normal 0.2-0.9 [facility] Comment on above: Performed By: #### L IPD, TSH reflex FT4, CMP, FT4, CBCAD #### [facility] [address], [place] [id number] Monocytes/100 WBC (Bld) 8.1 % Normal [place] Comment on above: Performed By: #### L IPD, TSH reflex FT4, CMP, FT4, CBCAD #### [facility] [address], [place] [id number] Neutrophils (Bld) [#/Vol] 3.0 10*3/uL Normal 1.5-7.8 [facility] Comment on above: Performed By: #### L IPD, TSH reflex FT4, CMP, FT4, CBCAD #### [facility] [address], [place] [id number] Neutrophils/100 WBC (Bld) 51.6 % Normal [facility] Comment on above: Performed By: #### L IPD, TSH reflex FT4, CMP, FT4, CBCAD #### [facility] [address], [place] [id number] Platelet mean volume (Bld) [Entitic vol] 9.50 fL Normal 7.50-12.50 [facility] Comment on above: Performed By: #### L IPD, TSH reflex FT4, CMP, FT4, CBCAD #### [facility] [address], [place] [id number] Platelets (Bld) [#/Vol] 367 10*3/uL Normal 140-400 [facility] Comment on above: Performed By: #### L IPD, TSH reflex FT4, CMP, FT4, CBCAD #### [facility] [address], [place] [id number] RBC (Bld) [#/Vol] 4.47 10*6/uL Normal 3.90-5.20 [facility] Comment on above: Performed By: #### L IPD, TSH reflex FT4, CMP, FT4, CBCAD #### [facility] [address], [place] [id number] RDW-SD 45.9 fL Normal 37.0-50.0 [place] Comment on above: Performed By: #### L IPD, TSH reflex FT4, CMP, FT4, CBCAD #### [facility] [address], [place] [id number] WBC (Bld) [#/Vol] 5.7 10*3/uL Normal 3.8-11.0 [facility] Comment on above: Performed By: #### L IPD, TSH reflex FT4, CMP, FT4, CBCAD #### [facility] [address], [place] [id number] [facility] 07-27-2021 Albumin [Mass/Vol] 4.5 g/dL Normal 3.6-5.1 [facility] Specialist Comment on above: Performed By: #### L IPD, TSH reflex FT4, CMP, FT4, CBCAD #### [facility] [address], [place] [id number] Albumin/Globulin [Mass ratio] 1.7 {ratio} Normal 1.0-2.5 [place] Comment on above: Performed By: #### L IPD, TSH reflex FT4, CMP, FT4, CBCAD #### [facility] [address], [place] [id number] ALP [Catalytic activity/Vol] 89 U/L Normal 35-119 [facility] Comment on above: Performed By: #### L IPD, TSH reflex FT4, CMP, FT4, CBCAD #### [facility] [address], [place] [id number] ALT [Catalytic activity/Vol] 27 U/L Normal 6-33 [place] Comment on above: Result Comment: 03/24 Female reference range changed. Performed By: #### L IPD, TSH reflex FT4, CMP, FT4, CBCAD #### [facility] [address], [place] [id number] Anion gap [Moles/Vol] 18 mmol/L Normal 12-20 [place] Comment on above: Result Comment: Effe ctive 04/29/2019 reference range changed. Performed By: #### L IPD, TSH reflex FT4, CMP, FT4, CBCAD #### [facility] [address], [place] [id number] AST [Catalytic activity/Vol] 25 U/L Normal 9-34 [place] Comment on above: Performed By: #### L IPD, TSH reflex FT4, CMP, FT4, CBCAD #### [facility] [address], [place] [id number] BUN/CREA 22 Ratio Normal 6-22 [place] Comment on above: Performed By: #### L IPD, TSH reflex FT4, CMP, FT4, CBCAD #### [facility] [address], [place] [id number] Calcium [Mass/Vol] 9.5 mg/dL Normal 8.6-10.2 [facility] Comment on above: Performed By: #### L IPD, TSH reflex FT4, CMP, FT4, CBCAD #### [facility] [address], [place] [id number] Chloride [Moles/Vol] 102 mmol/L Normal 98-107 [facility] Comment on above: Performed By: #### L IPD, TSH reflex FT4, CMP, FT4, CBCAD #### [facility] [address], [place] [id number] CO2 [Moles/Vol] 26 mmol/L Normal 20-31 [place] Comment on above: Performed By: #### L IPD, TSH reflex FT4, CMP, FT4, CBCAD #### [facility] [address], [place] [id number] Creatinine [Mass/Vol] 1.0 mg/dL Normal 0.6-1.4 [facility] [employer] Comment on above: Performed By: #### L IPD, TSH reflex FT4, CMP, FT4, CBCAD #### [facility] [address], [place] [id number] eGFRAA 72 mL/min/1.73m2 Normal >60 [facility] [employer] Comment on above: Performed By: #### L IPD, TSH reflex FT4, CMP, FT4, CBCAD #### [facility] [address], [place] [id number] eGFRNAA 60 mL/min/1.73m2 Low >60 [facility] [employer] Comment on above: Performed By: #### L IPD, TSH reflex FT4, CMP, FT4, CBCAD #### [facility] [address], [place] [id number] Globulin (S) [Mass/Vol] 2.6 g/dL Normal 1.9-3.7 [facility] [employer] Comment on above: Performed By: #### L IPD, TSH reflex FT4, CMP, FT4, CBCAD #### [facility] [address], [place] [id number] Glucose [Mass/Vol] 110 mg/dL High 65-99 [facility] Comment on above: Result Comment: For FASTING Glucose --- ADA reference ranges: Normal 65-99 mg/dl Prediabetes 100-125 Diabetes >/= 126 Performed By: #### L IPD, TSH reflex FT4, CMP, FT4, CBCAD #### [facility] [address], [place] [id number] Potassium [Moles/Vol] 3.5 mmol/L Normal 3.5-5.5 [facility] [employer] Comment on above: Performed By: #### L IPD, TSH reflex FT4, CMP, FT4, CBCAD #### [facility] [address], [place] [id number] Protein [Mass/Vol] 7.1 g/dL Normal 6.1-8.1 Carmelo patiño [place] [employer] Comment on above: Performed By: #### L IPD, TSH reflex FT4, CMP, FT4, CBCAD #### [facility] [address], [place] [id number] Sodium [Moles/Vol] 142 mmol/L Normal 135-146 [facility] [employer] Comment on above: Performed By: #### L IPD, TSH reflex FT4, CMP, FT4, CBCAD #### [facility] [address], [place] [id number] TBIL <0.3 Normal [facility] Comment on above: Performed By: #### L IPD, TSH reflex FT4, CMP, FT4, CBCAD #### [facility] [address], [place] [id number] Urea nitrogen [Mass/Vol] 21 mg/dL Normal 7-25 [facility] [employer] Comment on above: Performed By: #### L IPD, TSH reflex FT4, CMP, FT4, CBCAD #### [facility] [address], [place] [id number] Free T4on 07-27-2021 Free T4 [Mass/Vol] 1.17 ng/dL Normal 0.80-1.80 [facility] [employer] Comment on above: Performed By: #### L IPD, TSH reflex FT4, CMP, FT4, CBCAD #### [facility] [address], [place] [id number] Lipid Panelon 07-27-2021 Cholesterol [Mass/Vol] 256 mg/dL High 125-200 [facility] [employer] Comment on above: Result Comment: Low risk < 200mg/dL Borderline risk 201-239 mg/dl High risk > or equal to 240 Performed By: #### L IPD, TSH reflex FT4, CMP, FT4, CBCAD #### [facility] [address], [place] [id number] Cholesterol in HDL [Mass/Vol] 68 mg/dL Normal >40 [facility] [employer] Comment on above: Result Comment: High Cardiovascular Risk HDL <40 mg/dL Low Cardiovascular Risk HDL > or equal to 60 mg/dl Performed By: #### L IPD, TSH reflex FT4, CMP, FT4, CBCAD #### [facility] [address], [place] [id number] Cholesterol in LDL [Mass/Vol] 170 mg/dL Normal [facility] Comment on above: Result Comment: LDL ATP III CLASSIFICATION LDL less than 100 mg/dl Optimal LDL 100-129 mg/dl Near or above optimal LDL 130-159 Borderline high LDL 160-189 High LDL greater than 189 mg/dl Very High Performed By: #### L IPD, TSH reflex FT4, CMP, FT4, CBCAD #### [facility] [address], [place] [id number] Cholesterol in VLDL [Mass/Vol] 18 mg/dL Normal [place] Comment on above: Performed By: #### L IPD, TSH reflex FT4, CMP, FT4, CBCAD #### [facility] [address], [place] [id number] Cholesterol.total/Ch olesterol in HDL [Mass ratio] 4 {ratio} Normal [place] Comment on above: Performed By: #### L IPD, TSH reflex FT4, CMP, FT4, CBCAD #### [facility] [address], [place] [id number] Triglyceride [Mass/Vol] 89 mg/dL Normal 30-150 [facility] Comment on above: Result Comment: TRIG ATPIII CLASSIFICATIONS TRIG less than 150 mg/dl Normal TRIG 150-199 mg/dl Borderline High TRIG 200-500 mg/dl High TRIG greather than 500 mg/dl Very High Performed By: #### L IPD, TSH reflex FT4, CMP, FT4, CBCAD #### [facility] [address], [place] [id number] TSH w/ Reflex to Free T4on 0 07-27-2021 FT4 reflex Free T4 Normal [facility] Comment on above: Performed By: #### L IPD, TSH reflex FT4, CMP, FT4, CBCAD #### [facility] [address], [place] [id number] TSH 6.030 uIU/mL High 0.400-4.500 [facility] Comment on above: Performed By: #### L IPD, TSH reflex FT4, CMP, FT4, CBCAD #### [facility] [address], [place] [id number] Covid-19 PCR (CVDTBH)on SARS-CoV-2 (COVID-19) RNA IVAN+probe Ql (Unsp spec) Not detected Normal NOT DETECTED [facility] Comment on above: Result Comment: This test is not yet approved or cleared by the [place] FDA. When there are no FDA-approved or cleared tests available, and other criteria are met, FDA can make tests available under an emergency access mechanism called an Emergency Use Authorization (EUA). The EUA for this test is supported by the [place] of Health and Human Service's (HHS's) declaration [...] consistent with SARS-CoV-2. Performed By: #### [facility] #### [facility] [address] [place] [address] Dr. Dontae Toth Vital Signs Date Time Vital Sign Value Performing Clinician Facility 07-18-2024 08:33-0400 Diastolic blood pressure 84 mm[Hg] Donaldo Mills MD [facility] 07-18-2024 08:33-0400 Systolic blood pressure 124 mm[Hg] Donaldo Mills MD [facility] 06-10-2024 11:40-0500 Body height 154.9 cm Franny GILES Work Phone: [facility] 06-10-2024 11:40-0500 Body mass index (BMI) [Ratio] 29.89 kg/m2 Franny GILES Work Phone: [facility] 06-10-2024 11:40-0500 Body weight 71.76 kg Franny GILES Work Phone: [facility] 06-10-2024 11:40-0500 Diastolic blood pressure 72 mm[Hg] Franny GILES Work Phone: [facility] 06-10-2024 11:40-0500 Heart rate 87 /min Franny Hemmer PA Work Phone: [facility] 06-10-2024 11:40-0500 Respiratory rate 16 /min Franny Hemmer PA Work Phone: [facility] 06-10-2024 11:40-0500 SaO2% (BldA) [Mass fraction] 96 % Franny Hemmer PA Work Phone: [facility] 06-10-2024 11:40-0500 Systolic blood pressure 108 mm[Hg] Franny Hemmer PA Work Phone: [facility] 05-16-2024 14:25-0500 Diastolic blood pressure 65 mm[Hg] Erika Zee MD Work Phone: [facility] 05-16-2024 14:25-0500 Heart rate 75 /min Erika Zee MD Work Phone: [facility] 05-16-2024 14:25-0500 Respiratory rate 16 /min Erika Zee MD Work Phone: [facility] 05-16-2024 14:25-0500 SaO2% (BldA) [Mass fraction] 96 % Erika Zee MD Work Phone: [facility] 05-16-2024 14:25-0500 Systolic blood pressure 115 mm[Hg] Erika Zee MD Work Phone: [facility] 05-16-2024 12:12-0500 Body height 154.94 cm Erika Zee MD Work Phone: [facility] 05-16-2024 12:12-0500 Body weight 68.03 kg Erika Zee MD Work Phone: [facility] 04-02-2024 10:32-0500 Body height 154.9 cm Franny Hemmer PA Work Phone: [facility] 04-02-2024 10:32-0500 Body mass index (BMI) [Ratio] 29.02 kg/m2 Franny Hemmer PA Work Phone: [facility] 04-02-2024 10:32-0500 Body weight 69.67 kg Franny Hemmer PA Work Phone: [facility] 04-02-2024 10:32-0500 Diastolic blood pressure 88 mm[Hg] Franny Hemmer PA Work Phone: [facility] 04-02-2024 10:32-0500 Heart rate 88 /min Franny Hemmer PA Work Phone: [facility] 04-02-2024 10:32-0500 Respiratory rate 16 /min Franny Hemmer PA Work Phone: [facility] 04-02-2024 10:32-0500 SaO2% (BldA) [Mass fraction] 96 % Franny Hemmer PA Work Phone: [facility] 04-02-2024 10:32-0500 Systolic blood pressure 124 mm[Hg] Franny Hemmer PA Work Phone: [facility] 01-10-2024 16:38-0400 Body height 154.9 cm Franny Hemmer PA Work Phone: [facility] 01-10-2024 16:38-0400 Body mass index (BMI) [Ratio] 28 kg/m2 Franny Hemmer PA Work Phone: [facility] 01-10-2024 16:38-0400 Body weight 67.22 kg Franny Hemmer PA Work Phone: [facility] 01-10-2024 16:38-0400 Diastolic blood pressure 72 mm[Hg] Franny Hemmer PA Work Phone: [facility] 01-10-2024 16:38-0400 Heart rate 85 /min Franny Hemmer PA Work Phone: [facility] 01-10-2024 16:38-0400 Respiratory rate 16 /min Franny Hemmer PA Work Phone: [facility] 01-10-2024 16:38-0400 SaO2% (BldA) [Mass fraction] 97 % Franny GILES Work Phone: [facility] 01-10-2024 16:38-0400 Systolic blood pressure 116 mm[Hg] Franny GILES Work Phone: [facility] Encounters Encounter Date Encounter Type Care Provider Facility Start: 07-18-2024 End: 07-18-2024 Office outpatient visit 15 minutes Donaldo Mills Work Phone: [facility] Start: 07-18-2024 ambulatory Donaldo Mills [facility] Start: 06-14-2024 End: 06-14-2024 Clinisync Result Encounter Franny GILES Work Phone: [facility] Unsolicited Start: 06-14-2024 End: 06-14-2024 Clinisync Result Encounter Franny GILES Work Phone: [facility]solic[facility] Start: 06-10-2024 End: 06-10-2024 Bamboo flowsheet Franny GILES Work Phone: [facility] Start: 06-10-2024 End: 06-10-2024 Bamboo flowsheet Franny Mcdermott PA Work Phone: [facility] Start: 06-10-2024 End: 06-10-2024 Office outpatient visit 25 minutes Franny GILES Work Phone: [facility] [...] / Non-visit Erika Zee MD Work Phone: [facility] Work Phone: Start: 05-16-2024 End: 05-16-2024 Admission to same day surgery center Erika Zee MD Work Phone: [facility] Work Phone: Start: 05-16-2024 End: 05-16-2024 ambulatory Erika Zee MD Work Phone: [facility] Work Phone: Start: 04-02-2024 End: 04-02-2024 Bamboo flowsheet Franny Mcdermott PA Work Phone: [facility] Start: 04-02-2024 End: 04-02-2024 Bamboo flowsheet Franny Mcdermott PA Work Phone: [facility] Start: 04-02-2024 End: 04-02-2024 Office outpatient visit 15 minutes Franny Mcdermott PA Work Phone: [facility] [...] Phone: [facility] Unsolicited Start: 01-19-2024 End: 01-19-2024 Office outpatient visit 15 minutes Donaldo Mills Work Phone: [facility] Start: 01-19-2024 ambulatory Donaldo Daniels [facility] [place] Start: 01-16-2024 End: 01-16-2024 Clinisync Result Encounter Franny GILES Work Phone: [facility] Unsolicited Start: 01-16-2024 End: 01-16-2024 Clinisync Result Encounter Franny GILES Work Phone: [facility] Unsolic[facility] Start: 01-16-2024 End: 01-16-2024 Telephone encounter Franny GILES Work Phone: [facility] Start: 01-10-2024 End: 01-10-2024 Patient encounter procedure Franny GILES Work Phone: [facility] Comment on above: Medicare annual [facility] visit, initial (Primary Dx); ACP (advance care [...] 08-16-2023 ambulatory ZENAIDA RANGEL Not Available Start: 02-15-2023 End: 02-15-2023 Office outpatient visit 15 minutes José Miguel Thomas [employer] Work Phone: [facility] Start: 02-10-2022 End: 02-10-2022 Office outpatient visit 15 minutes Lilianasherice Thomas Alkaliby Work Phone: [facility] Start: 10-20-2021 End: 10-21-[address] ERIKA ZEE Facility:[facility] Start: 07-21-2021 End: 07-21-2021 Doctor Corporate Work Phone: [facility] Start: 03-24-2021 End: 03-24-2021 Doctor Corporate Work Phone: [facility] Start: 03-22-2021 End: 03-23-[address] ERIKA ZEE Facility:[facility] Start: 02-22-2021 End: 02-23-[address] FRANNY MCDERMOTT Facility:[facility] Start: 01-22-2021 End: 01-22-[address] ERIKA ZEE Facility:[facility] Start: 11-25-2020 End: 11-25-2020 Will Irby Work Phone: [facility] Start: 12-04-2019 End: 12-04-2019 Will Irby Work Phone: [facility] Start: 12-12-2018 End: 12-12-2018 Will Irby Work Phone: [facility] Start: 02-05-2018 End: 02-05-2018 Odalis Alarcon Work Phone: [facility] Start: 11-01-2017 End: 11-01-2017 Will Jasmin Irby Work Phone: [facility] Start: 10-26-2016 End: 10-26-2016 Will Irby Work Phone: [facility] Start: 11-11-2015 End: 11-11-2015 Will Irby Work Phone: [facility] Start: 11-19-2014 End: 11-19-2014 Will Irby Work Phone: [facility] Start: 03-12-2014 End: 03-12-2014 Office outpatient new 45 minutes Will Irby Work Phone: [facility] Procedures Date Procedure Procedure Detail Performing Clinician Start: 07-18-2024 End: 07-18-2024 Computerized ophthalmic imaging retina Donaldo Mills Start: 06-14-2024 XR KNEE HOLLY 3V Franny GILES Work Phone: Start: 06-14-2024 ALL BASIC METABOLIC PANEL Franny Mcdermott PA Work Phone: Start: 05-16-2024 Esophagogastroduodenoscopy Erika Zee MD Work Phone: Start: 01-25-2024 ALL BASIC METABOLIC PANEL Franny Mcdermott PA Work Phone: Start: 01-19-2024 End: 01-19-2024 Computerized ophthalmic imaging retina Donaldo Mills Start: 01-19-2024 Fundus Photos No Charge Donaldo Yarbrough i Start: 01-19-2024 End: 01-19-2024 Fundus Photos No Charge Bilateral Donaldo Mills MD Start: 01-16-2024 ALL CBC WITH AUTO DIFF Franny Mcdermott PA Work Phone: Start: 10-30-2023 Mammography Franny Mcdermott PA Work Phone: Start: 02-15-2023 End: 02-15-2023 Computerized ophthalmic imaging retina Donaldo Mills MD Start: 11-14-2022 History of total hysterectomy History of total hysterectomy Franny GILES Work Phone: Start: 07-21-2021 End: 07-21-2021 Medical Records Copied Donaldo Mills MD Start: 03-24-2021 End: 03-24-2021 Medical Records Copied Donaldo Mills MD Start: 11-25-2020 End: 11-25-2020 Computerized ophthalmic imaging retina Donaldo Mills MD Start: 12-04-2019 End: 12-04-2019 Computerized ophthalmic imaging retina Donaldo Mills MD Start: 12-12-2018 End: 12-12-2018 Computerized ophthalmic imaging retina Donaldo Mills MD Start: 11-21-2018 [facility] Franny GILES Work Phone: Start: 02-05-2018 End: 02-05-2018 Fundus photography w/interpretation & report Donaldo Mills MD Start: 11-01-2017 End: 11-01-2017 Computerized ophthalmic imaging retina Donaldo Mills MD Start: 10-26-2016 End: 10-26-2016 Computerized ophthalmic imaging retina Donaldo Mills MD Start: 11-11-2015 End: 11-11-2015 Computerized ophthalmic imaging retina Donaldo Mills MD Start: 11-19-2014 End: 11-19-2014 Fundus photography w/interpretation & report Donaldo Mills MD Start: 03-12-2014 End: 03-12-2014 Fundus photography w/interpretation & report Donaldo Mills MD History of total hysterectomy Hi story of total hysterectomy Franny GILES Work Phone: Plan of Treatment Date Care Activity Detail Author Start: 11-21-2028 Screening for malign ant neoplasm of colon [facility] Start: 02-17-2025 Ana Amaya goran 6-8mo DFE W OCT (7) [facility] Work Phone: Start: 01-09-2025 Medicare Annual Wellness (AWV) Medicare Annual Wellness (AWV) [facility] Start: 10-29-2024 Screening for malign ant neoplasm of breast Mammogram [facility] Start: 06-10-2024 End: 06-10-2025 Basic metabolic [...] [address] [place] [address] Franny Mcdermott PA [address] [place] [address] Arrived [facility] Comment on above: Arrived Start: 06-06-2024 End: 06-06-2024 Patient encounter procedure 06/06/2024 9:00 AM EST Office Visit [facility] [address] [place] [address] Franny Mcdermott PA [address] [place] [address] [facility] Start: 05-16-2024 [facility] Start: 04-02-2024 End: 04-02-2024 Patient encounter procedure 04/02/2024 10:30 AM EST Office Visit [facility] [address] [place] [address] Franny Mcdermott PA [address] [place] [address] Arrived [facility] Comment on above: Arrived Start: 01-23-2024 End: 01-15-2025 Basic metabolic 1998 panel - Serum or Plasma Basic metabolic panel Lab Routine Hypokalemia Expected: 01/23/2024 (Approximate), Expires: 01/15/2025 [facility] Work Phone: Comment on above: Expected: 01/23/2024 (Approximate), Expires: 01/15/2025 Start: 01-10-2024 End: 01-10-2024 Patient encounter procedure 01/10/2024 4:30 PM EDT Office Visit [facility] [address] [place] [id number] Franny Mcdermott PA [address] [place] [address] Arrived [facility] Comment on above: Arrived Start: 01-10-2024 End: [...] (CMS/HCC) Hypokalemia Expected: 01/10/2024 (Approximate), Expires: 01/09/2025 [facility] Comment on above: Expected: 01/10/2024 (Approximate), Expires: 01/09/2025 Start: 01-10-2024 End: 01-09-2025 HEPATITIS C AB W/RFL RNS, PCR W/RFL GENOTYPE,LIPA HEPATITIS C AB W/RFL RNS, PCR W/RFL GENOTYPE,LIPA Lab Routine Medicare annual wellness visit, initial Other problems related to lifestyle Expected: 01/10/2024 (Approximate), Expires: 01/09/2025 [facility] Comment on above: Expected: 01/10/2024 (Approximate), Expires: 01/09/2025 Start: 01-10-2024 End: 01-09-2025 Lipid 1996 panel - Serum or Plasma Lipid panel Lab Routine Medicare annual wellness visit, initial Benign hypertension (CMS/HCC) Elevated LDL cholesterol level (CMS/HCC) Expected: 01/10/2024 (Approximate), Expires: 01/09/2025 [facility] Comment on above: Expected: 01/10/2024 (Approximate), Expires: 01/09/2025 Start: 01-10-2024 End: 01-09-2025 TSH W/REFLEX TO FT4 TSH W/REFLEX TO FT4 Lab Routine Medicare annual wellness visit, initial Acquired hypothyroidism (CMS/HCC) Expected: 01/10/2024 (Approximate), Expires: 01/09/2025 [facility] Comment on above: Expected: 01/10/2024 (Approximate), Expires: 01/09/2025 Start: 12-24-2023 Influenza vaccination Influenza Vacc ine (#1) [facility] Start: 11-16-2023 Medicare Annual Wellness (AWV) Medicare Annual Wellness (AWV) [facility] Start: 11-25-2020 Smoking cessation education Tobacco cessation counseling [facility] Start: 1960 Screening for malign ant neoplasm of colon [facility] Patient Education Esophageal Dil ation Esophageal Stricture (DC) Stomach polyps Hiatal hernia - Discharge instructions Know your [facility] Work Phone: Immunizations Immunization Date Immunization Notes Care Provider [facility] 03-01-2024 Seasonal, trivalent, recombinant, injectable influenza vaccine, preservative free Franny GILES Work Phone: [facility] 06-07-2023 RSV, recombinant, pr otein subunit RSVpreF, adjuvant reconstitu, 120mcg/0.5mL, PF (Arexvy) Franny GILES Work Phone: [facility] 12-31-2022 influenza, injectabl e, quadrivalent, preservative free Franny GILES Work Phone: [facility] 12-31-2022 influenza virus vacc ine, unspecified formulation Franny GILES Work Phone: [facility] 02-02-2022 zoster vaccine recombinant K aren Hemmer PA Work Phone: [facility] 01-20-2022 SARS-CoV-2, Unspecified Ana Laura n Hemmer PA Work Phone: [facility] 01-12-2022 influenza, injectabl e, quadrivalent, preservative free Franny Hemmer PA Work Phone: [facility] 12-01-2021 zoster vaccine recombinant K aren Hemmer PA Work Phone: [facility] 02-18-2021 influenza, injectabl e, quadrivalent, preservative free Franny Hemmer PA Work Phone: [facility] 03-21-2020 influenza, injectabl e, quadrivalent, contains preservative Franny Hemmer PA Work Phone: [facility] 03-21-2020 pneumococcal polysaccharide vaccine, 23 valent Franny Hemmer PA Work Phone: [facility] 04-09-2019 tetanus toxoid, redu mayela diphtheria toxoid, and acellular pertussis vaccine, adsorbed Franny Hemmer PA Work Phone: [facility] 01-03-2019 influenza, injectabl e, quadrivalent, preservative free Franny Hemmer PA Work Phone: [facility] 01-03-2019 seasonal influenza, intradermal, preservative free Franny Hemmer PA Work Phone: [facility] 01-25-2018 influenza, injectabl e, quadrivalent, preservative free Franny Hemmer PA Work Phone: [facility] 01-25-2018 seasonal influenza, intradermal, preservative free Franny Hemmer PA Work Phone: [facility] 02-02-2016 influenza, injectabl e, quadrivalent, preservative free Franny Hemmer PA Work Phone: [facility] 02-02-2016 pneumococcal conjuga te vaccine, 13 valent Franny Hemmer PA Work Phone: [facility] 01-23-2016 influenza, seasonal, injectable Donaldo Loi Camara MD [facility] Comment on above: Note: Invalid docume nted admin date was . ; Source: Other Provider 01-23-2016 pneumococcal polysaccharide vaccine, 23 valent Donaldo Mills MD [facility] Comment on above: Note: Invalid docume nted admin date was . ; Source: Other Provider Payers Date Payer Category Payer Self-pay 2023 Medicare ANTH MEDICARE ADVANTAGE [facility] MEDICARE ADVANTAGE [id number] 2023-Present [address] [place] [id number] 2023 Medicare (Managed Care) [facility] Member Subscriber Plan / Payer (Effective 2023-Present) Name: Анна Amaya V Relation to Subscriber: Self Name: Анна Amaya V Payer ID: Not on file Group ID: [id number] Type: Not on file Address: [id number] [id number] 2023 Unknown [id number] 1960 Unknown [id number] 2.0.1.321534.3.579.2. 593 1960 Unknown [id number] 2.16840.1.318380.3.579.2. 593 1960 Unknown [id number] 2.16840.1.481899.3.579.2. 593 1960 Unknown [id number] 2.16840.1.661278.3.579.2. 593 1960 Unknown [id number] 2.16840.1.220847.3.579.2. 1259 1960 Unknown [id number] 2.16.840.1.091238.3.579.2. 1259 1960 Unknown [id number] 2.16.840.1.707850.3.579.2. 9 1960 Unknown [id number] 2.16.840.1.565080.3.579.2. 9 1960 Unknown [id number] 2.16.840.1.732194.3.579.2. 9 1960 Unknown [id number] 2.16.840.1.423872.3.579.2. 1259 1960 Unknown [id number] 2.16.840.1.539449.3.579.2. 9 1960 Unknown [id number] 2.16.840.1.551816.3.579.2. 9 1960 Unknown [id number] 2.16.840.1.312240.3.579.2. 7 1960 Unknown [id number] 2.16.840.1.582952.3.579.2. 1347 1959 Unknown [id number] Unknown [id number] 2.16.840.1.755912.3.579.2. 531 Social History Date Type Detail Facility Start: 11-14-2022 End: 05-16-2024 Tobacco smoking status WYIS Never smoked tobacco [facility] Start: 11-14-2022 [...] To some extent [facility] (I/We) worried whether (my/our) food would run out before (I/we) got money to buy more. Never true [facility] Start: 11-15-2022 Alcohol Comment Caffeine intak e: 1-2 cups per day [facility] Start: 1960 Sex assigned at Not on file [facility] Start: 05-16-2024 Sex Patient sex un known (finding) [facility] Start: 1960 Sex Assigned At Female F [facility] Start: 07-18-2024 Alcohol intake (observable entity) Alcohol Use Details [facility] Start: 07-18-2024 Health-related behavior (observable entity) Caffeine Use Details [facility] Start: 07-18-2024 Tobacco use and exposure Non-Smoking Tobacco Use Details [facility] NEGATED: Highlighted rowStart: 07-18-2024 Tobacco smoking status NHIS Unknown if ever smoked [facility] NEGATED: Highlighted rowStart: 07-18-2024 History of tobacco use Current non-smoker [facility] Medical Equipment Procedure Code Equipment Code Equipment Origin al Text Equipment Identifier Dates Phacoemulsification of cataract with intraocular lens implantation Posterior-chamber intraocular lens, pseudophakic [id number] FDA Start: 06-06-2019 Phacoemulsification of cataract with intraocular lens implantation Posterior-chamber intraocular lens, pseudophakic ()[id number]) [id number] FDA Start: 11-21-2019 Goals Date Patient Goal Desired Activity /State Clinical Notes 01-10-2024 to 07-18-2024 Note Date & Type Note Facility 07-18-2024 Evaluation note Type assessment 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 Side: Bilateral. Status: moderate, chronic, stable assessment Pseudophakia impression Pseudophakia: Z96.1. Bilateral. Condition: established, stable [facility] Work Phone: [phone] History of Present illness Narrative* Encounter Date Complaint History Of Prese nt [...] for evaluation of RP in both eyes. [facility] Work Phone: [phone] Instructions* Date Instruction Additional Infor linnea Impression/Plan Related to Pigme ntary retinal dystrophy Impression/Plan Related to Pseud ophakia Impression/Plan Related to Pseud ophakia Impression/Plan Related to Pigme ntary retinal dystrophy Impression/Plan Related to Pseud ophakia Oct- Impression/Plan Related to Other vitreous opacities, bilateral Oct- Impression/Plan Related to Pigme ntary retinal dystrophy Oct- Impression/Plan Related to Other vitreous opacities, bilateral Oct- Impression/Plan Related to Pigme ntary retinal dystrophy Return in 1 year wit darren Irby MD for follow up and OCT Related to Pigmentary retinal dystrophy Impression/Plan Related to Gener alized contraction of visual field, bilateral Impression/Plan Related to Pigme ntary retinal dystrophy Impression/Plan Related to Pseud ophakia Impression/Plan Related to Other vitreous opacities, bilateral Return in 1 year wit Will Irby MD for follow up exam and OCT. Related to Pigmentary retinal dystrophy Impression/Plan Related to Other vitreous opacities, bilateral Impression/Plan Related to Gener alized contraction of visual field, bilateral Impression/Plan Related to Pigme ntary retinal dystrophy Impression/Plan Related to Pseud ophakia Return in 1 year wit Will Irby MD for follow up and OCT Related to Pigmentary retinal dystrophy Impression/Plan Related to Age-r elated nuclear cataract, bilateral Impression/Plan Related to Other vitreous opacities, bilateral Impression/Plan Related to Pigme ntary retinal dystrophy Impression/Plan Related to Gener alized contraction of visual field, bilateral Oct- Impression/Plan Related to Pigme ntary retinal dystrophy Oct- Impression/Plan Related to Age-r elated nuclear cataract, bilateral Oct- Impression/Plan Related to Other vitreous opacities, bilateral Oct- Impression/Plan Related to Gener alized contraction of visual field, bilateral Return in [address] Irby for follow up exam and OCT. Related to Pigmentary retinal dystrophy Impression/Plan - No t affecting vision, surgical intervention is not recommended at this time. Related to Age-related nuclear cataract, bilateral Impression/Plan - Ad vised that these will likely improve over time. There is no evidence of a retinal tear, break or detachment. Monitor Related to Other vitreous opacities, bilateral Impression/Plan - Se condary to Retinitis [...] and OCT. Related to Pigmentary retinal dystrophy Return in [address] [...] Patient has been seen previously at the [facility]; she stated they told her they would [...] up. Appropriate follow up with primary eye manager care was recommended. Related to PVD (Vitreous degeneration) [...] future. Offered patient a referral to the [facility]/Dr. Robles (who specializes in inherited retinal diseases) [...] follow up exam. Related to Retinitis pigmentosa [facility] Work Phone: [phone] 190-944502-17-2025 History of Present illness Narrative* CHAN Elizondo - 06/10/2024 11:30 AM EST Images from the original note were not [...] Brother Past Medical History: Diagnosis Date Asthma ([facility]/HCC) multiple admits Cataract senile right eye GERD [...] controlled. Continue with current medications and I willcontinue to monitor. Goal BP remains less than [...] for Medication Follow Up. documented in this [facility]02-05-2025 Telephone encounter Note* Telephone Encounter - Emilia Flores LPN - 05/29/2024 8:45 AM EST Sent. [id number] Miscellaneous Notes* Telephone Encounter - Emilia Flores LPN - 05/29/2024 8:45 AM EST Sent. * Telephone Encounter - Madie Monroy - 05/29/2024 8:28 AM EST potassium chloride CR (K-Tab) 20 MEQ ER tablet Patient is wondering [facility] [place] She said she struggles with low potassium sometimes and she thinks that is what is happening now to her. She feels light-headed, dizzy, like she might pass out. documented in this [facility]02-05-2025 Telephone encounter Note* Telephone Encounter - Madie Monroy - 05/29/2024 8:28 AM EST potassium chloride CR (K-Tab) 20 MEQ ER tablet Patient is wondering if we can [facility] [place]. She said she struggles with low potassium sometimes and she thinks that is what is happening now to her. She feels light-headed, dizzy, like she might pass out. [facility]20[facility] History and physical noteJacqueline [place] [id number] Gastroenterology H&P Signed Patient: Анна Amaya V MR#: [id number] : 1960 Acct:[id number] Age/Sex: 63 / F Adm Date: Loc: Room: Type: [facility] Attending Dr: Sivakumar Juárez MD Copies to: MD Erika Lowry MD~ Date of Service: 05/16/2024 HISTORY & PHYSICAL: Patient's history with special attention to the cardiovascular, pulmonary systems and the current problem was reviewed with the patient immediately prior to the procedure. Present medications and doses reviewed in the EMR. Allergies and pertinent laboratory tests were also re viewedat this time in the EMR. The physical [...] Juárez M.D. Documented By: Sivakumar Juárez MD 05/16/241325 Signed By: 05/16/24 132 [facility]01-23-2025 [place] [address] EGD Procedure Note Signed Patient: Анна Amaya V MR#: [id number] : 1960 Acct:[id number] Age/Sex: 63 / F Adm Date: 5 Loc: Room: Type: [facility] Attending Dr: Sivakumar Juárez MD Copies to: MD Erika Lowry MD~ Esophagogastroduodenoscopy Date/Provider Date: 05/16/2024 Sivakumar Juárez MD Procedure Findings: Procedure: EGD with polypectomy with dilation with biopsy Indication: 63-year-old female here for EGD for evaluation of dysphagia Pre-operative diagnosis: Dysphagia Post-operative diagnosis: Hiatal hernia, gastric polyp in the hiatal hernia, Esophageal stricture, 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 Sedation: propofol per anesthesia dept O2 oximetry, hemodynamic monitoring was performed pre, during, and post procedure. Patient was identified, H&P completed, patient was given full explanation of the procedure as well as associatedrisks and written consent wasobtained prior to procedure. Patient expressed complete understanding of the procedure as well as alternatives to the procedure and to anesthesia and agreed to proceed with the procedure as indicated. Patient was immediately reassessed prior to IV sedation. Following IV sedation, patient was placed in the left lateral decubitus position. Bite block was inserted. Endoscope was passed through the mouth, into the esophagus. Endoscope was advanced into the stomach through the pyloric channel and into the 2nd portion of duodenum by direct visualization. End oscopewas withdrawn into the stomach and retroflexion was performed. The endoscope was straightened, the stomach was decompressed. Endoscope was withdrawn into the esophagus then completely removed with the findings as below. Findings: DUODENUM: bulb and descending portion appeared normal. STOMACH: A 3 cm hiatal hernia noted between 33 cm and 36 cm from the incisors, a1 cm polyp noted inthe hiatal hernia, removed using hot snare and then a clip was placed at the polypectomy site to stop postpolypectomy bleeding. Otherwise pyloric channel, antrum, body, fundus and cardia, including retroflexed views appear normal. Gastric biopsies were done using biopsy forceps to assess for H.pylori ESOPHAGUS: An esophageal stricture noted at 33 cm from incisors. A CRE balloon was passed into scope and stricture dilated using 21 mm. A 1 cm tongue of salmon-colored mucosa noted between 32 cm and 33 cm from incisors, biopsied using biopsy forceps to assess for Ruth's. Biopsy taken: Yes Complications: None EBL: Minimal Recommendations: -Follow up pathology -Follow up in the office Following a period of recovery, patient was seen and given full explanation of the procedure. Patient tolerated the procedure well and will be discharged in satisfactory, stable condition. Sivakumar Juárez M.D. Documented By: Sivakumar Juárez MD 05/16/24 1326 Signed By: 05/16/24 9596 [facility]12-10-2024 History of Present illness Narrative * CHAN Elizondo - 04/02/2024 10:30 AM EST Images from the original note were not [...] Brother Past Medical History: Diagnosis Date Asthma (CMS/HCC) multiple admits Cataract senile right eye GERD [...] for Medicare Wellness Visit. documented in this encounterSaint [facility] [id number] Telephone encounter Note* Telephone Encounter - CHAN Elizondo - 01/16/2024 10:37 AM EDT Called and informed pt that her potassium was very low. Needs to restart the supplement today. She voices understanding, updated Rx sent in for pt. Advised pt will need to recheck in one week. Lab order will be sent to [facility]. [facility] [id number] Miscellaneous Notes* Telephone Encounter - CHAN Elizondo - 01/16/2024 10:37 AM EDT Called and informed pt that her potassium was very low. Needs to restart the supplement today. She voices understanding, updated Rx sent in for pt. Advised pt will need to recheck in one week. Lab order will be sent to [facility]. * Telephone Encounter - Rosa Warren MA - 01/16/2024 10:12 AM EDT Critical lab potassium is 2.8 from [facility] documented in this encounterSaint John's HospitalHksrrsvbcv80-11-7276 Telephone encounter Note* Telephone Encounter - Rosa Warren MA - 01/16/2024 10:12 AM EDT Critical lab potassium is 2.8 from [facility] HospitalQbfxbcrcxa20-12-0102 History of Present illness Narrative* CHAN Elizondo - 01/10/2024 4:30 PM EDT Images from the original note were not [...] take 1 tablet by mouth once daily for5 days No current facility-administered medications on file [...] Brother Past Medical History: Diagnosis Date Asthma (CMS/HCC) multiple admits Cataract senile right eye GERD [...] Do you have a medical power of criminal defense attorney?: (P) No Objective : BP 116/72 Pulse [...] All needed testing was ordered. Will continue withyearly Medicare Wellness exams. - CBC and differential [...] a living will and durable power of criminal defense attorney for healthcare. We discussed telling garcia people [...] time. 8. Moderate persistent asthma without complication (CMS/HCC) This is a chronic medical condition that is stable since last assessment. No changes in treatment are suggested at this time. 9. Benign hypertension (CMS/HCC) Patient's blood pressure is currently well controlled. Continue with current medications and I willcontinue to monitor. Goal BP remains less than [...] joint (CMS/HCC) The patient is seeing a chief medical technologist for this condition, treatment is deferred to [...] Retinitis pigmentosa The patient is seeing a chief medical technologist for this condition, treatment is deferred to that specialist. Correspondence from that specialist and any available testing were reviewed during today's visit. 23. Seasonal allergies This is a chronic medical condition that is stable since last assessment. No changes in treatment are suggested at this time. 24. Other problems related to lifestyle Pt was born in 1. She is agreeable to Hep C Screening. - HEPATITIS C AB W/RFL RNS, PCR W/RFL GENOTYPE,LIPA 25. Atherosclerosis of aorta (CMS/HCC) Seen on previous imaging. Will continue to minimize risk factors. Follow up in about 1 year (around 01/09/2025) for Medicare Wellness Visit. Electronically signed by Franny Mcdermott PA-C on January 10, 2024 documented in this encounterNOMS HealthcareConsult note* Clinical Note Date No Information [facility] Work Phone: Discharge summary* Clinical Note Date No Information [facility] Work Phone: Evaluation note* Diagnosis Dysphagia, unspecified type- Primary Overweight (BMI 25.0-29.9) Overweight Gastroesophageal reflux disease without esophagitis Esophageal reflux Hoarseness of voice Dysphonia Chronic cough Cough documented in this encounter [facility] HealthcareEvaluation note* Diagnosis Medicare annual wellness visit, [...] reflux Stage 3a chronic kidney disease (HCC) (CMS/HCC) Ankylosis, right shoulder Inflammation of right sacroiliac joint (CMS/HCC) Acquired hypothyroidism ([facility]/HCC) Unspecified hypothyroidism Overweight (BMI 25.0-29.9) Overweight Thrombocytosis Essential thrombocythemia Elevated LDL cholesterol level (CMS/HCC) Generalized anxiety disorder ([facility]/HCC) Generalized anxiety disorder History of total hysterectomy Hypokalemia Hypopotassemia Retinitis pigmentosa Pigmentary retinal dystrophy Seasonal allergies Allergic rhinitis, cause unspecified Other problems related to lifestyle Atherosclerosis of aorta ([facility]/HCC) Atherosclerosis of aorta documented in this encounter [facility] HealthcareEvaluation note* Diagnosis Hypokalemia- Primary Hypopotassemia documented in this encounter [facility] HealthcareEvaluation noteNo assessment information availableOhio[facility] Work Phone: Evaluation note* Diagnosis Hypokalemia Hypopotassemia documented in this encounter [facility] HealthcareEvaluation note* Diagnosis Near syncope- Primary Hypokalemia Hypopotassemia EVIE (obstructive sleep apnea) Obstructive sleep apnea (adult) (pediatric) CPAP (continuous positive airway pressure) dependence Dependence on other enabling machine Benign hypertension (CMS/HCC) Essential hypertension, benign Degeneration of intervertebral disc of lumbar region with discogenic back pain Chronic pain of both knees Stress reaction Unspecified acute reaction to stress Chronic kidney disease, stage 3a (HCC) (CMS/HCC) documented in this encounter [facility] and [facility] note Author Sivakumar Juárez [facility] Note Date/Time May 16, 2024 2 :47pm [facility] [address] [place] [address] Gastroenterology H&P Signed Patient: Анна Amaya V MR#: [id number] : 1960 Acct:[id number] Age/Sex: 63 / F Adm Date: 5 Loc: Room: Type: [facility] Attending Dr: Sivakumar Juárez MD [...] signed by Sivakumar Juárez MD> 05/16/24 1326 [facility] Work Phone: History and physical note* Clinical Note Date No Information [facility] Work Phone: Progress note* Clinical Note Date No Information [facility] Work Phone: Reason for referral (narrative)* Reason For Referral No Information [facility] Work Phone: Summary Purpose Family History Relationship Condition Age at Onset Recorded Date/T anil father Unknown Motor vehicle accident Unknown mother Hypertension Unknown Unknown Disorder of kidney Unknown Family Member Type Diagnosis Age At Onset Problem (finding) Family history of blind ness Problem (finding) Family history of catar act Problem (finding) Family history of hyper tension Problem Family history o f retinal pigmentosa-mother/grandmother Advance Directives Advance Directive Response Recorded Date/ Time Advance Directives No May 09, 2019 12:12pm Directive Yes / No Effective Date File Name No Information Chief Complaint and Reason for Visit From encounter dated '07/18/2024 08:35'. pigmentary [...] about 6 months ago and is inconsistent. Chief Complaint Admit Date Dysphagia May 16, 2024 1 1:20am Dysphagia May 16, 2024 1 :26pm Additional Source Comments INFORMATION SOURCE (unrecogn ized section and content) DATE CREATED AUTHOR 09/10/2021 [facility] dical Specialist DATE CREATED AUTHOR AUTHOR'S ORGANIZ ATION 10/23/2021 [facility] pital DATE CREATED AUTHOR AUTHOR'S ORGANIZ ATION 05/28/2024 [facility] y[facility] DATE CREATED AUTHOR AUTHOR'S ORGANIZ ATION 06/11/2024 [facility] dical Specialists EPIC DATE CREATED AUTHOR AUTHOR'S ORGANIZ ATION 07/20/2024 [facility] Care Teams (unrecognized sec tion and content) Tail Edger Relationship Specialty Start Date End Date Erika Zee MD [address] [facility] [address] [place] [address] PCP - General Family Medicine 11/15/22 Zenaida Rangel, PHLEBOTOMY INSTRUCTOR [address] [facility] [address] [place] [address] PCP - Selene IVORY 10/23/23 Tail Edger Relationship Specialty Start Date End Date Erika Zee MD [address] [facility] [place] [address] PCP - General Family Medicine 11/15/22 Dorita Dye, PHLEBOTOMY INSTRUCTOR [address], [address] [address] PCP Casey Morton MA 12/24/23 Tail Edger Relationship Specialty Start Date End Date Erika Zee MD [address] [facility] [address] [place] [address] PCP - General Family Medicine 11/15/22 Dorita Dye, PHLEBOTOMY INSTRUCTOR [address], [facility] [address] [place] [address] PCP Casey Morton MA 12/24/23 Tail Edger Relationship Specialty Start Date End Date Erika Zee MD [address] [facility] [address] [place] [address] PCP - General Family Medicine 11/15/22 Zenaida Rangel, PHLEBOTOMY INSTRUCTOR [address] [place] [address] PCP - Selene IVORY 10/23/23 Tail Edger Relationship Specialty Start Date End Date Erika Zee MD [address] [place] [address] PCP - General Family Medicine 11/15/22 Zenaida Rangel, PHLEBOTOMY INSTRUCTOR [address] [place] [address] PCP Casey Morton MA 10/23/23 Tail Edger Relationship Specialty Start Date End Date Erika Zee MD [address] [facility] [place] [address] PCP - General Family Medicine 11/15/22 Zenaida Rangel, PHLEBOTOMY INSTRUCTOR [address] [place] [address] PCP - Selene IVORY 10/23/23 Tail Edger Relationship Specialty Start Date End Date Erika Zee MD [address] [place] [address] PCP - General Family Medicine 11/15/22 Zenaida Rangel, PHLEBOTOMY INSTRUCTOR [address] [facility] [address] [place] [address] PCP Casey Morton MA 10/23/23 Team Status: Active Member Role Status [...] Other Provider Active Start: May 16, 2024 Tail Edger Relationship Specialty Start Date End Date Erika Zee MD [address] [place] [address] PCP - General Family Medicine 11/15/22MondayBina LPN [address] [place] [address] Licensed Practical Nurse Family Medicine 04/10/24 Tail Edger Relationship Specialty Start Date End Date Erika Zee MD [address] [place] [address] PCP - General Family Medicine 11/15/22 Rosa Edwards RN Licensed Practical Nurse Family Medicine 05/31/24 Tail Edger Relationship Specialty Start Date End Date Erika Zee MD [address] [place] [address] PCP - General Family Medicine 11/15/22 Rosa Edwards RN Licensed Practical Nurse Family Medicine 05/31/24 Tail Edger Relationship Specialty Start Date End Date Erika Zee MD [address] [place] [address] PCP - General Family Medicine 11/15/22 Rosa Edwards RN Licensed Practical Nurse Family Medicine 05/31/24 Name Effective Dates (start - stop) Status Members No Information Reason for Visit (unrecogniz ed section and [...] BE BASED ON THE PRIMARY CLINICAL RECORDS. [facility] [employer] [facility]. provides no warranty or guarantee of the accuracy or completeness of information in this document.
--- NOTE | 2024-08-03 12:33 | ED_ITS ---
HPI HPI - General Adult General Chief complaint: Back Pain/Injury Stated complaint: back pain Time Seen by Provider: 08/03/24 12:17 Source: patient Mode of arrival: walk-in Limitations: no limitations History of Present Illness HPI narrative: 64-year-old female presents for right lower back pain. She has had it every day for 6 months. No injury. In October of last year she had an MRI which did not show any significant findings. No dysuria or hematuria and the pain is to the right of midline. She does not have pain on the left side. Related Data Home Medications ?Medication ?Instructions ?Recorded ?Confirmed albuterol sulfate 90 mcg/actuation 2 inh inhalation Q4H PRN shortness 08/12/23 08/12/23 aerosol inhaler of breath or wheezing hydrochlorothiazide 25 mg tablet 25 mg PO DAILY 08/12/23 08/12/23 levothyroxine 25 mcg tablet 25 mcg PO DAILY 08/12/23 08/12/23 montelukast 10 mg tablet 10 mg PO DAILY 08/12/23 08/12/23 pantoprazole 40 mg tablet,delayed 40 mg PO DAILY 08/12/23 08/12/23 release rosuvastatin 10 mg tablet 10 mg PO DAILY 08/12/23 08/12/23 Previous Rx's ?Medication ?Instructions ?Recorded acetaminophen 300 mg-codeine 30 mg 1 tab PO Q6H PRN pain 5 days #20 08/03/24 tablet tabs ibuprofen 800 mg tablet 800 mg PO Q8H PRN pain #20 tabs 08/03/24 methocarbamol 500 mg tablet 500 mg PO Q8H PRN pain #20 tabs 08/03/24 Allergies Allergy/AdvReac Type Severity Reaction Status Date / Time No Known Drug Allergies Allergy Verified 08/03/24 12:18 Opioid HPI Opioid Management Most Recent Opioid Data: No Data to Display Review of Systems ROS Narrative A ten point review of systems is negative except as noted above. PFSH PFSH Social History Little interest or pleasure in doing things: not at all Feeling down, depressed, or hopeless: not at all Exam Narrative Exam Narrative: Nurses note and vital signs reviewed and patient is not hypoxic. General: The patient appears well and in no apparent distress. Patient is resting comfortably on cart. Skin: Warm, dry, no pallor noted. There is no rash noted. Head: Normocephalic, atraumatic Eye: Normal conjunctiva, no drainage Ears, Nose, Mouth, and Throat: oral mucosa is moist. Nares patent. Cardiovascular: Regular Rate and Rhythm Respiratory: Patient is in no distress, no accessory muscle use, lungs are clear to auscultation, no wheezing, rales or rhonchi Back: No bruise or rash. No palpable tenderness GI: Soft and nontender Musculoskeletal: The patient has no evidence of calf tenderness, no pitting edema, symmetrical pulses noted bilaterally Neurological: A&O, normal speech; motor strength intact in her lower extremities Psychiatric: Cooperative Constitutional Vital Signs, click to edit/add: Last Vital Signs Temp 98.2 F 08/03/24 12:18 Pulse 96 H 08/03/24 12:18 Resp 16 08/03/24 12:18 BP 134/89 08/03/24 12:18 Pulse Ox 96 08/03/24 12:18 O2 Del Method Room Air 08/03/24 12:18 Course Vital Signs Vital signs: Vital Signs Temperature 98.2 F 08/03/24 12:18 Pulse Rate 96 H 08/03/24 12:18 Respiratory Rate 16 08/03/24 12:18 Blood Pressure 134/89 08/03/24 12:18 Pulse Oximetry 96 08/03/24 12:18 Oxygen Delivery Method Room Air 08/03/24 12:18 Temperature 98.2 F 08/03/24 12:18 Pulse Rate 96 H 08/03/24 12:18 Respiratory Rate 16 08/03/24 12:18 Blood Pressure 134/89 08/03/24 12:18 Pulse Oximetry 96 08/03/24 12:18 Oxygen Delivery Method Room Air 08/03/24 12:18 Medical Decision Making MDM Narrative Medical decision making narrative: Lumbar x-rays and urinalysis are negative. She was given IM Toradol and prescribed Tylenol 3 and ibuprofen and Robaxin. Treatment diagnosis and follow- up were discussed with the patient. Differential Diagnosis Differential Diagnosis: Muscle strain, compression fracture, UTI Lab Data Lab results reviewed: Yes I reviewed the patient's lab results Labs: Lab Results 08/03/24 Range/Units 12:32 Urine Color Lt. yellow (YELLOW) Urine Clarity Clear (CLEAR) Urine pH 6.0 (5.0-9.0) Ur Specific [place] 1.010 (1.005-1.025) Urine Protein Negative (NEG/TRACE) mg/dL Urine Glucose (UA) Negative (NEGATIVE) mg/dL Urine Ketones Negative (NEGATIVE) mg/dL Urine Occult Blood Negative (NEGATIVE) Urine Nitrite Negative (NEGATIVE) Urine Bilirubin Negative (NEGATIVE) Urine Urobilinogen 0.2 (0.2-1.0) EU/dL Ur Leukocyte Esterase Negative (NEGATIVE) Urine RBC 0-2 (0-2) #/HPF Urine WBC 0-2 A (NONE SEEN) #/HPF Ur Squamous Epith Cells Rare (NONE/RARE) #/LPF Urine Crystals None seen (None Seen) #/HPF Urine Bacteria None seen (NONE SEEN) #/HPF Urine Casts None seen (NONE SEEN) #/LPF Urine Mucus None seen (NONE SEEN) Imaging Data Lumbar x-rays: Radiologist's impression: No acute process Discharge Plan Discharge Chief Complaint: Back Pain/Injury Clinical Impression: Low back pain Patient Disposition: Home, Self-Care Time of Disposition Decision: 13:14 Condition: Good Prescriptions / Home Meds: New acetaminophen-codeine 300-30 mg tablet 1 tab PO Q6H PRN (Reason: pain) 5 Days Qty: 20 0RF methocarbamol 500 mg tablet 500 mg PO Q8H PRN (Reason: pain) Qty: 20 0RF ibuprofen 800 mg tablet 800 mg PO Q8H PRN (Reason: pain) Qty: 20 0RF No Action levothyroxine 25 mcg tablet 25 mcg PO DAILY hydrochlorothiazide 25 mg tablet 25 mg PO DAILY rosuvastatin 10 mg tablet 10 mg PO DAILY montelukast 10 mg tablet 10 mg PO DAILY pantoprazole 40 mg tablet,delayed release (DR/EC) 40 mg PO DAILY albuterol sulfate 90 mcg/actuation HFA aerosol inhaler 2 inh INHALATION Q4H PRN (Reason: shortness of breath or wheezing) Print Language: [place] Instructions: Acute Low Back Pain (ED) Referrals: NELLY ZEE [Primary Care Provider] - 1 week
[2024-08-03 12:42] LABS: Bilirubin Urine NEGATIVE (NEGATIVE); Blood Urine NEGATIVE (NEGATIVE); Clarity Urine CLEAR (CLEAR); Color Urine LT. YELLOW (YELLOW); Glucose Urine UA NEGATIVE (NEGATIVE); Ketones Urine NEGATIVE (NEGATIVE); Leukocyte Esterase Urine NEGATIVE (NEGATIVE); Nitrite Urine NEGATIVE (NEGATIVE); Protein Urine NEGATIVE (NEG/TRACE); Urobilinogen Urine 0.2 EU/dL (0.2-1.0)
[2024-08-03 12:51] LABS: Bacteria Urine NONE SEEN #/HPF (NONE SEEN); Cast Seen? NONE SEEN #/LPF (NONE SEEN); Crystals Seen? None Seen #/HPF (None Seen); Mucus Urine NONE SEEN (NONE SEEN); RBC Urine 0-2 #/HPF (0-2); Squamous Epithelial Cell Urine RARE #/LPF (NONE/RARE); WBC Urine 0-2 #/HPF (NONE SEEN)
[2024-08-03] MEDS: KETOROLAC TROMETHAMINE 60 MG/2 ML VIAL IM (13:26)
== END 2024-08-03 13:29 | disposition home or self-care (01) ==
PROVIDERS: Emergency Provider Emergency Medicine; PCP Family Medicine
DX: M54.50 Low back pain, unspecified (principal)
CPT/HCPCS: 72100; 81001; 96372; 99285; J1885

== ENCOUNTER 2024-11-06 06:44 | Outpatient (OUT) | payer MEDICARE, SELFPAY ==
--- OUTSIDE RECORDS SUMMARY | 2024-02-08 09:30 | XMS_ITS ---
Author Organization [facility] vices Address [address] [place], [place] [address] [phone] Care Team Providers Care Real Estate Branch Manager Name Role Phone Shanna Lloyd Unavailable [phone] REASON FOR VISIT Recall (A)- 63 Social History Sex Assigned At : Social History Observation Description Sex Assigned At Female Encounters Encounter Location Date Provider Diagnosis [facility] [address] [place], [place] [phone] 02/08/2024 Shanna Lloyd Plan Of Treatment No Information Progress Notes * Анна AMAYADOB: [birth year] (64 yo F)Acc No.[id number]:02/08/2024 Patient: Анна NAGY Provider: Elaine Lloyd DDS :1960 A ge:63 Y S ex:Female Date:02/08/2024 Address:[address] [place] [address] [address], [place] [id number] Subjective: * Chief Complaints: * 1 . Recall (A)- 63. * Medical History: Objective: * Vitals: Assessment: Plan: * Treatment: * Billing Information: * Visit Code: * Procedure Codes: * Electronic signature of Sonya Lloyd DDS on 11/06/2024 at 06:48 AM EDT Sign off status: Pending * Provider: Elaine Lloyd DDS Date: 1 Generated for Kamron mello/Sweetie/eTransmitting on: 0 11/06/2024 06:48 AM EDT
--- OUTSIDE RECORDS SUMMARY | 2024-07-18 04:35 | XMS_ITS | Continuity of Care Document ---
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 progression of cataracts was noted on examination today. Not affecting vision at this time. Discussed with the patient that cataracts may develop earlier than normal in patients with Retinitis Pigmentosa. Related to Senile nuclear sclerosis - Posterior vitreous detachment was noted on examination today and explained to the patient. There is no evidence of a retinal tear, break or detachment. Signs and symptoms of retinal detachment and tears were discussed in detail. Patient instructed to call the office immediately if any symptoms noted. Recommend the patient return to office for follow up. Appropriate follow up with primary eye healthcare risk control consultant was recommended. 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 Recommend continued visual field testing/monitoring with primary eyecare specialist. 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 Family history of this disease is reported by the patient, in addition to progressive difficulty seeing at night and decreased peripheral vision. Discussed with patient that there is no effective treatment for this condition to date, but that stem-cell research is currently being done which may be of benefit in the future. Offered patient a referral to the [facility]/Dr. Robles (who specializes in inherited retinal diseases) if she desires. Also gave patient information on the Vitamin A studies that show slowed progression of the disease with proper dosage. Advised patient to call with any changes, as secondary macular edema can develop and be treated. Baseline Color Photos were obtained today to track progression. Related to Retinitis pigmentosa - Return in [address] Irby for follow up exam. 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 Side: Bilateral. Status: moderate, chronic, stable assessment Pseudophakia impression Pseudophakia: Z96.1. Bilateral. Condition: established, stable Patient Care Teams Name Effective Dates (start - stop) Status Members No Information
--- OUTSIDE RECORDS SUMMARY | 2024-11-06 06:47 | XMS_ITS | Encounter Summary ---
Author Organization [facility] Address [address] [facility] [place] [address] Care Team Providers Care Emissions Testing And Repair Technician Name Role Phone Erika Gaviria MD Primary Care Provider Franny Salazar PA Unavailable [phone] Erika Gaviria MD Unavailable Erika Gaviria MD Unavailable Karolyn Rangel TREE SPECIALIST Unavailable Kate Slater TREE SPECIALIST Unavailable Naomie Johnson RN Unavailable Monday, Bina BUILDING CONSTRUCTION SUPERINTENDENT Unavailable [phone] Rosa Edwards RN Unavailable FontenotHumera BUILDING CONSTRUCTION SUPERINTENDENT Unavailable Encounter Details Date Type Department Care Team (Late st Contact Info) Description 11/18/2022 Abstract [facility] [address] [facility] [address] [place] [address] Erika Gaviria MD [address] [facility] [address] [place] [address] Social History Tobacco Use Types Packs/Day Years Used Date Smoking Tobacco: Never Smokeless Tobacco: Never Alcohol Use Standard Drinks/Week Comments Yes 0 (1 standard drink = 0.6 oz pure alcohol) Caffeine intake: 1-2 cups per day Humiliation, Afraid, Rape, and Kick questionnair e Answer Date Recorded Within the last year, have y ou been afraid of your partner or ex-partner? No 11/09/2022 Within the last year, have y ou been humiliated or emotionally abused in other ways by your partner or ex-partner? No Within the last year, have y ou been kicked, hit, slapped, or otherwise physically hurt by your partner or ex-partner? No 11/09/2022 Within the last year, have y ou been raped or forced to have any kind of sexual activity by your partner or ex-partner? No 11/09/2022 Social Connection and Isolat ion Panel [NHANES] Answer Date Recorded In a typical week, how many times do you talk on the phone with family, friends, or neighbors? More than three times a week 11/09/2022 How often do you get togethe r with friends or relatives? More than three times a week 11/09/2022 [facility] services? More than 4 times per year 11/09/2022 Do you belong to any clubs o r organizations such as mormonism groups, unions, fraternal or athletic groups, or school groups? Yes 11/09/2022 How often do you attend meet ings of the clubs or organizations you belong to? More than 4 times per year 11/09/2022 Are you , , di vorced, , never , or living with a partner? 11/09/2022 AUDIT-C Answer Date Recorded Q1: How often do you have a drink containing alc ohol? 2-4 times a month 11/09/2022 Q2: How many drinks containi ng alcohol do you have on a typical day when you are drinking? 3 or 4 11/09/2022 Q3: How often do you have si x or more drinks on one occasion? Never 11/09/2022 Overall Financial Resource Strain (CARDIA) Answe r Date Recorded How hard is it for you to pa y for the very basics like food, housing, medical care, and heating? Not hard at all 11/09/2022 [facility] [place] [facility] Occupat ional Health - Occupational Stress Questionnaire Answer Date Recorded Do you feel stress - tense, restless, nervous, or anxious, or unable to sleep at night because your mind is troubled all the time - these days? To some extent 11/09/2022 Exercise Vital Sign Answer Date Recorde d On average, how many days pe r week do you engage in moderate to strenuous exercise (like a brisk walk)? 2 days 11/09/2022 On average, how many minutes do you engage in exercise at this level? 30 min 11/09/2022 Hunger Vital Sign Answer Date Recorded Within the past 12 months, y ou worried that your food would run out before you got the money to buy more. Never true 11/10/19 23 Within the past 12 months, t he food you bought just didn't last and you didn't have money to get more. Never true 11/09/2022 PRAPARE - Transportation Answer Date Re corded In the past 12 months, has l ack of transportation kept you from medical appointments or from getting medications? No 10/22 In the past 12 months, has l ack of transportation kept you from meetings, work, or from getting things needed for daily living? No 11/09/2022 Housing Stability Vital Sign Answer Michael e Recorded In the last 12 months, was t here a time when you were not able to pay the mortgage or rent on time? No 11/09/2022 In the last 12 months, how many places have you lived? 1 11/09/2022 In the last 12 months, was t here a time when you did not have a steady place to sleep or slept in a alf (including now)? No 11/09/2022 Comments Unknown Sex and Gender Information Value Date Recorded Sex Assigned at Not on file Legal Sex Female 8:00 PM EDT Gender Identity Not on file Sexual Orientation Not on file COVID-19 Exposure Response Date Recorded In the last 10 days, have yo u been in contact with someone who was confirmed or suspected to have Coronavirus/COVID-19? No / Unsure 11/09/2022 11:21 AM EDT documented as of this encounter Plan of Treatment Upcoming Encounters Date Type Department Care Team (Late st Contact Info) Description 11/12/2024 8:00 AM EDT Office Visit [facility] [address] [place] [address] [place] [address] Hemmer, Franny M, PA [address] [place] [address] [place] [address] documented as of this encounter Visit Diagnoses Not on filedocumented in this encounter Care Teams Emissions Testing And Repair Technician Relationship Specialty Start Date End Date Erika Gaviria MD [address] [place] [address] [place] [address] PCP - General Family Medicine 11/15/22 Franny Salazar PA [address] [place] [address] [place] [address] PCP - [facility] 10/22/22 Erika Gaviria MD [address] [facility] [address] [place] [address] PCP - [facility] 04/24/23 10/22/23 Erika Gaviria MD [address] [facility] [address] [place] [address] PCP - [facility] 07/24/23 10/22/23 Karolyn Rangel, TREE SPECIALIST [address] [facility] [address] [place] [address] PCP - [facility] 10/23/23 12/23/23 Kate Slater, TREE SPECIALIST [address], [facility] [address] [place] [id number] PCP - [facility] 12/24/23 03/23/24 Naomie Johnson, RN [address] [facility] [address] [place] [address] Registered Nurse Family Medicine 04/04/24 04/10/24MonDiegoBina LPN [address] [place] [address] Licensed Practical Nurse Family Medicine 04/10/24 Rosa Edwards, JEREMY [address] [place], [place] [id number] Licensed Practical Nurse Family Medicine 05/31/2407/12 Humera Fontenot LPN [address] [facility] [address] [place] [address] 07/12/24 documented as of this encounter
--- OUTSIDE RECORDS SUMMARY | 2024-11-06 06:47 | XMS_ITS | Encounter Summary ---
Author Organization [facility] Address [address] [place] [address] [place] [address] Care Team Providers Care Diesel Powerplant Mechanic Helper Name Role Phone Erika Gaviria MD Primary Care Provider [phone] Monday, Bina ENVIRONMENTAL EDUCATOR Unavailable [phone] Rosa Edwards RN Unavailable Fontenot, Humera ENVIRONMENTAL EDUCATOR Unavailable Encounter Details Date Type Department Care Team (Late st Contact Info) Description 05/16/2024 Abstract [facility] [address] [facility] 110 [place] [id number] Erika Gaviria MD 112 [facility] 110 [place] [address] Social History Tobacco Use Types Packs/Day Years Used Date Smoking Tobacco: Never Smokeless Tobacco: Never Alcohol Use Standard Drinks/Week Comments Yes 5 (1 standard drink = 0.6 oz pure alcohol) Caffeine intake: 1-2 cups per day B1300 Health Literacy Answer Date Recor ded How often do you need to hav e someone help you when you read instructions, pamphlets, or other written material from your doctor or pharmacy? Sometimes 01/06/2024 Humiliation, Afraid, Rape, and Kick questionnair e [...] the phone with family, friends, or neighbors? Three times a week 01/06/2024 How often do you get togethe r with friends or relatives? More than three times a week 01/06/2024 How often do you attend [facility] or voodoo services? More than 4 times per year 01/06/2024 Do you belong to any clubs o r organizations such as adventism groups, unions, fraternal or athletic groups, or school groups? No 01/06/2024 How often do you attend meet ings of the clubs or organizations you belong to? Never 01/06/2024 Marital Status Not on file 01/06/2024 AUDIT-C Answer Date Recorded Q1: How often do you have a drink containing alc ohol? 2-4 times a month 01/06/2024 Q2: How many drinks containi ng alcohol do you have on a typical day when you are drinking? 3 or 4 01/06/2024 Q3: How often do you have si x or more drinks on one occasion? Never 01/06/2024 Overall Financial Resource Strain (CARDIA) Answe r Date Recorded How hard is it for you to pa y for the very basics like food, housing, medical care, and heating? Not hard at all 01/06/2024 PHQ-2 Answer Date Recorded Patient Health Questionnaire-2 Score 1 01/06/2024 [facility] - Occupational Stress Questionnaire Answer Date Recorded Do you feel stress - tense, restless, nervous, or anxious, or unable to sleep at night because your mind is troubled all the time - these days? To some extent 01/06/2024 Exercise Vital Sign Answer Date Recorde d On average, how many days pe r week do you engage in moderate to strenuous exercise (like a brisk walk)? 3 days 01/06/2024 On average, how many minutes do you engage in exercise at this level? 30 min 01/06/2024 Hunger Vital Sign Answer Date Recorded Within the past 12 months, y ou worried that your food would run out before you got the money to buy more. Never true 01/06/20 24 Within the past 12 months, t he food you bought just didn't last and you didn't have money to get more. Never true 01/06/2024 PRAPARE - Transportation Answer Date Re corded In the past 12 months, has l ack of transportation kept you from medical appointments or from getting medications? No 12/23 In the past 12 months, has l ack of transportation kept you from meetings, work, or from getting things needed for daily living? Yes 01/06/2024 Housing Stability Vital Sign Answer Michael e [...] place to sleep or slept in a [place] (including now)? No 11/09/2022 Housing Stability Vital Sign Answer Michael e Recorded In the last 12 months, was t here a time when you were not able to pay the mortgage or rent on time? No 04/12/2024 In the past 12 months, how m any times have you moved where you were living? 0 04/12/2024 At any time in the past 12 m [facility], were you homeless or living in a [place] facility (including now)? No 04/12/2024 Comments Unknown Sex and Gender Information Value Date Recorded Sex Assigned at Not on file Legal Sex Female 8:00 PM EDT Gender Identity Not on file Sexual Orientation Not on file documented as of this encounter Plan of Treatment Upcoming Encounters Date Type Department Care Team (Late st Contact Info) Description 11/12/2024 8:00 AM EDT Office Visit [facility] [address] [facility] [address] [place] [address] Franny Salazar PA [address] [facility] [address] [place] [address] documented as of this encounter Visit Diagnoses Not on filedocumented in this encounter Additional Health Concerns Assessment Noted Time PHQ-9 Depression Total Score: 5 01/06/20 24 5:38 AM EDT documented as of this encounter Care Teams Diesel Powerplant Mechanic Helper Relationship Specialty Start Date End Date Erika Gaviria MD [address] [place] [address] PCP - General Family Medicine 11/15/22MondayBina LPN [address] [facility] 110 [place] [address] Licensed Practical Nurse Family Medicine 04/10/24 Rosa Edwards, RN [address] [place] [address] Licensed Practical Nurse Family Medicine 05/31/2407/12 Humera Fontenot LPN [address] [facility] 110 [place] [address] 07/12/24 documented as of this encounter
--- OUTSIDE RECORDS SUMMARY | 2024-11-06 06:47 | XMS_ITS | CCD ---
Author Organization [facility] Care Team Providers Care Electrical Research Engineer Name Role Phone YAYO, DR VILLEGAS Primary [...] Unavailable Erika Zee MD Primary Care Provider Juan Carlos LEÓN, Karolyn Thomas Unavailable Dorita Dye NP Unavailable Erika Zee MD Primary Care Provider Franck REED Imadia Attending Provider Monday TESS, Bina Unavailable Rosa Edwards RN Unavailable Donaldo Mills Attending Unavailable Donaldo Mills Referring Unavailable Donaldo Mills Attending Unavailable Donaldo Mills Referring Unavailable Donaldo Mills MD Unavailable UnavailHumera Barajas LPN Unavailable Unavailable FRANNY MCDERMOTT Attending Unavailable FRANNY MCDERMOTT Attending Unavailable ERROL BURGESS Attending Unavailable DORITA DYE Attending Unavailable ERROL BURGESS Referring Unavailable SADNEEP HARRELL Attending Unavailable DORITA DYE Attending Unavailable FRANNY MCDERMOTT Attending Unavailable FRANNY MCDERMOTT Attending Unavailable Sivakumar Juárez Attending Unavailable Sivakumar Juárez Admitting Unavailable Erika Zee Primary Care Unavailable Medications Current Medications Medication Drug Class(es) Dates Sig (Normalized) Sig (Original) [id number] 200 actuat albuterol 0.09 mg/actuat metered dose inhaler (20 sources) beta2-Adrenergic Agonist Start: 02-08-2024 take 2 [...] 12:00am busPIRone hydrochloride 5 mg oral tablet (7 sources) Start: 06-10-2024 take 1 tablet by mouth twice daily as needed for anxiety busPIRone (Buspar) 5 MG tablet Indications: Stress reaction Take 1 tablet (5 mg) by mouth 2 (two) times a day as needed (Anxiety) 60 tablet 2 06/10/2024 Active chlorhexidine gluconate 1.2 mg/ml mouthwash (18 sources) Start: 01-03-2024 chlorhexidine (Peridex) 0.12 % solution Use 15 mL in the mouth or throat if needed for wound care 01/03/2024 Active cyclobenzaprine hydrochloride 10 mg oral tablet (7 sources) Muscle Relaxant take 1 tablet by [...] 2019 12:00am hydroCHLOROthiazide 25 mg oral tablet (20 sources) Thiazide Diuretic Start: 06-06-2019 take 1 tablet by mouth once daily hydroCHLOROthiazide (HYDRODiuril) 25 MG tablet Indications: Benign hypertension (CMS/HCC) Take 1 tablet (25 mg) by mouth Daily 100 tablet 3 06/19/2024 Active levothyroxine sodium 0.025 mg oral tablet (20 sources) l-Thyroxine Start: 06-19-2024 take 1 tablet by mouth in the morning levothyroxine (Synthroid, Levoxyl) 25 MCG tablet Indications: Acquired hypothyroidism (CMS/HCC) Take 1 tablet (25 mcg) by mouth in the morning. Take on an empty stomach.. 100 tablet 3 06/19/2024 Active Start: 03-15-2024 take 1 tablet by hermelinda th in [...] 10/30/2023 Active take 1 capsule by mo uth once daily levothyroxine 25 mcg capsule take 1 capsule by oral route every day 25 MCG - Active montelukast 10 mg oral tablet (20 sources) Leukotriene Receptor Antagonist Start: 06-06-2019 take 1 tablet by mouth at bedtime montelukast (Singulair) 10 MG tablet Indications: Seasonal allergies Take 1 tablet (10 mg) by mouth at bedtime 100 tablet 3 06/19/2024 Active pantoprazole 40 mg delayed release oral tablet (20 sources) Proton Pump Inhibitor Start: 06-06-2019 take 1 tablet by mouth once daily pantoprazole (ProtoNix) 40 MG EC tablet Indications: Gastroesophageal reflux disease without esophagitis TAKE 1 tablet Orally daily 100 tablet 3 09/06/2023 Active potassium chloride 20 meq extended release oral tablet (18 sources) Start: 06-14-2024 take 1 tablet by [...] for 5 days 08/13/2023 01/10/2024 Discontinued (Other) predniSONE 10 mg oral tablet (2 sources) Start: 08-20-2024 End: 08-29-2024 take 1 tablet by mouth three times daily, then take 1 tablet by mouth twice daily, then take 1 tablet by mouth once daily predniSONE (Deltasone) 10 MG tablet Indications: Lumbar strain, initial encounter Take 1 tablet (10 mg) by mouth 3 (three) times a day for 3 days, THEN 1 tablet (10 mg) 2 (two) times a day for 3 days, THEN 1 tablet (10 mg) Daily for 3 days. 18 tablet 08/20/2024 08/29/2024 Active rosuvastatin calcium 10 mg oral tablet (20 sources) HMG-CoA Reductase Inhibitor Start: 08-22-2023 take 1 tablet by mouth once daily rosuvastatin (Crestor) 10 MG tablet Indications: Elevated LDL cholesterol level (CMS/HCC) Take 1 tablet (10 mg) by mouth 1 (one) time each day at the same time 100 tablet 3 06/19/2024 Active vitamin a 2.4 mg oral capsule [...] Active Problems Problem Classification Problem Date Documented Date Episodic/Chronic Anxiety disorders (20 sources) Generalized anxiety disorder; Translations: [Generalized anxiety disorder] Onset: 11-14-2022 11-14-2022 Chronic Asthma (20 sources) Uncomplicated moderate persistent asthma; Translations: [Moderate persistent asthma, uncomplicated] Onset: 11-14-2022 11-14-2022 Chronic Blindness and vision defects (9 sources) Generalized contraction of visual field, bilateral; Translations: [Generalized visual field contraction or constriction] Episodic Cataract (13 sources) Presence of intraocular lens; Translations: [Age-related nuclear cataract, bilateral] Onset: 01-19-2024 Chronic Chronic kidney disease (20 sources) Chronic kidney disease stage 3A ; Translations: [Stage 3a chronic kidney disease (HCC)] Onset: 11-14-2022 11-14-2022 Chronic Disorders of lipid metabolism (20 sources) Raised low density lipoprotein cholesterol; Translations: [Pure hypercholesterolemia, unspecified] Onset: 11-14-2022 11-14-2022 Chronic Esophageal disorders (20 sources) Gastroesophageal reflux disease; Translations: [Gastro-esophageal reflux disease without esophagitis] Onset: 11-14-2022 11-14-2022 Chronic Essential hypertension (20 sources) Benign hypertension; Translations: [Essential (primary) hypertension] Onset: 11-14-2022 11-14-2022 Chronic Headache; including migraine (20 sources) Tension-type headache; Translations: [Tension-type headache, unspecified, not intractable] Onset: 11-14-2022 11-14-2022 Chronic Other eye disorders (7 sources) Other vitreous opacities, bilateral Chronic Other eye disorders (2 sources) Vitreous degeneration, bilateral Chronic Other eye disorders (2 sources) Vitreous degeneration Chronic Other lower respiratory disease (2 sources) Chronic cough; Translations: [Chronic cough] 04-02-2024 Episodic Other nervous system disorders (20 sources) Chronic pain; Translations: [Other chronic pain] Onset: 11-14-2022 11-14-2022 Chronic Other non-traumatic joint disorders (20 sources) Joint ankylosis of the shoulder region; Translations: [Ankylosis, right shoulder] Onset: 11-14-2022 11-14-2022 Chronic Other non-traumatic joint disorders (9 sources) Pain in right knee; Translations: [Pain in joint, lower leg] Onset: 06-10-2024 06-10-2024 Episodic Other screening for suspected conditions (not mental disorders or infectious disease) (4 sources) Encounter for screening mammogram for malignant neoplasm of breast; Translations: [ENC SCR MAMMO MALIG NEOPLASM BREAST] Onset: 10-20-2021 Episodic Other upper respiratory disease (20 sources) Seasonal allergy; Translations: [Other seasonal allergic rhinitis] Onset: 11-14-2022 11-14-2022 Chronic Other upper respiratory disease (2 sources) Hoarse; Translations: [Dysphonia] 04-02-2024 Episodic Peripheral and visceral atherosclerosis (2 sources) Atherosclerosis of aorta; Translations: [Atherosclerosis of aorta] 01-10-2024 Chronic Residual codes; unclassified (4 sources) Obstructive sleep apnea (adult) (pediatric); Translations: [OBSTRUCTIVE SLEEP APNEA] Onset: 03-22-2021 Chronic Residual codes; unclassified (20 sources) Obstructive sleep apnea syndrome; Translations: [Obstructive sleep apnea (adult) (pediatric)] Onset: 11-14-2022 11-14-2022 Chronic Residual codes; unclassified (20 sources) Dependence on continuous positive airway pressure ventilation; Translations: [Dependence on other enabling machines and devices] Onset: 11-15-2022 11-15-2022 Chronic Retinal detachments; defects; vascular occlusion; and retinopathy (20 sources) Retinitis pigmentosa; 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] Onset: 02-05-2018 Resolved: 07-18-2024 11-14-2022 Chronic Rheumatoid arthritis and related disease (2 sources) Rheumatoid arthritis; Translations: [Rheumatoid arthritis, unspecified] 08-20-2024 Chronic Spondylosis; intervertebral disc disorders; other back problems (20 sources) Inflammation of sacroiliac joint; Translations: [Sacroiliitis, not elsewhere classified] Onset: 11-14-2022 11-14-2022 Chronic Sprains and strains (2 sources) Low back strain; Translations: [Strain of muscle, fascia and tendon of lower back, initial encounter] 08-20-2024 Episodic Syncope (2 sources) Near syncope; Translations: [Syncope and collapse] 06-10-2024 Episodic Thyroid disorders (20 sources) Acquired hypothyroidism; Translations: [Hypothyroidism, unspecified] Onset: 11-14-2022 11-14-2022 Chronic Unclassified (3 sources) CONTACT W/AND (SUSP) EXPOS COVID-19; Translations: [CONTACT W/AND (SUSP) EXPOS COVID-19] Onset: 01-27-2021 Past or Other Problems Problem Classification Problem Date Documented Da te Episodic/Chronic Administrative/social admission (2 sources) Patient encounter status; Translations: [Other specified counseling] 01-10-2024 Episodic Fluid and electrolyte disorders (20 sources) Hypokalemia; Translations: [Hypokalemia] Onset: 11-14-2022 11-14-2022 Episodic Mood disorders (17 sources) Mood disorders Onset: 01-06-2024 01-10-2024 Neoplasms of unspecified nature or uncertain behavior (20 sources) Thrombocytosis; Translations: [Thrombocytosis] Onset: 11-14-2022 11-14-2022 Episodic Other gastrointestinal disorders (20 sources) Dysphagia; Translations: [Dysphagia, unspecified] Onset: 11-14-2022 11-14-2022 Episodic Other gastrointestinal disorders (1 source) Dysphagia, unspecified; Translations: [Dysphagia, unspecified] Onset: 05-16-2024 Episodic Other nutritional; endocrine; and metabolic disorders (20 sources) Body mass index 25-29 - overweight; Translations: [Overweight] Onset: 11-14-2022 11-14-2022 Episodic Residual codes; unclassified (20 sources) Difficulty sleeping ; Translations: [Sleep disorder, [...] PANELon 06-14-2024 Anion gap [Moles/Vol] 8.6 mmol/L [facility] Calcium [Mass/Vol] 9.3 mg/dL 8.5 - 10. 1 mg/dL [facility] Chloride [Moles/Vol] 103 mmol/L 98 - 10 7 mmol/L [facility] CO2 [Moles/Vol] 31.7 mmol/L 21.0 - 32.0 mmol/L [facility] Creatinine [Mass/Vol] 1.29 mg/dL High 0.55 - 1.02 mg/dL [facility] GFR/1.73 sq M.predicted CKD-EPI (S/P/Bld) [Vol rate/Area] 51 Low >=60 mL/min/1.73m 2 [facility] Glucose [Mass/Vol] 119 mg/dL High 74 - 106 mg/dL [facility] Interpretation and review of laboratory results Abnormal [facility] Potassium [Moles/Vol] 3.3 mmol/L Low 3.5 - 5.1 mmol/L [facility] Sodium [Moles/Vol] 140 mmol/L 136 - 145 mmol/L [facility] TB EGFR-NON AF BHUTANESE 42 Low >=60 mL/min/1.73m 2 [facility] Urea nitrogen [Mass/Vol] 19 mg/dL High 7.0 - 18.0 mg/dL [facility] Urea nitrogen/Creatinine [Mass ratio] 14.7 mg/mg [facility] XR KNEE HOLLY 3Von 06-14-2024 [place] [address] XRay Report Signed Patient: АННА AMAYA V MR#: [id number] : 1960 Acct:[id number] Age/Sex: 63 / F ADM Date: 06/14/24 Loc: LAB Attending Dr: FRANNY MCDERMOTT Ordering Physician: FRANNY MCDERMOTT Date of Service: 06/14/24 Procedure(s): XR knee HOLLY 3V Accession Number(s): [id number] cc: ERIKA ZEE ; FRANNY MCDERMOTT [place] [address] Patient Name: АННА AMAYA MRN: [facility]:[id number] date: 1960 Sex: F Assigned Patient Location: LAB Current Patient Location: LAB Accession/Order Number: [id number] Exam Date: 06/14/2024 13:05 Report Date: 06/14/2024 [...] Franny Mayberry M.D.06/14/2024 1:13 PM Dictation Location: [place] [address] Electronically authenticated by: [id number] Y Date: 06/14/2024 13:13 Dictated By: Franny Mayberry M.D. Signed By: 06/14/24 1316 DD/ 131 TD/TT: Dietetics Director: [facility] Radiology, Radiologist, MD - 06/14/2024 [place] [address] XRay Report Signed Patient: АННА AMAYA V MR#: [id number] : 1960 Acct:[id number] Age/Sex: 63 / F ADM Date: 06/14/24 Loc: LAB Attending Dr: FRANNY MCDERMOTT Ordering Physician: FRANNY MCDERMOTT Date of Service: 06/14/24 Procedure(s): XR knee HOLLY 3V Accession Number(s): [id number] cc: ERIKA ZEE ; FRANNY MCDERMOTT [place] [id number] Patient Name: АННА AMAYA MRN: [facility]:[id number] date: 1960 Sex: F Assigned Patient Location: LAB Current Patient Location: LAB Accession/Order Number: [id number] Exam Date: 06/14/2024 13:05 Report Date: 06/14/2024 [...] Franny Mayberry M.D.06/14/2024 1:13 PM Dictation Location: [place] [address] Electronically authenticated by: [id number] Y Date: 06/14/2024 13:13 Dictated By: Franny Mayberry M.D. Signed By: 06/14/241315 DD/ 12 TD/TT: Dietetics Director: [facility] Radiology Study observation (narrative) [facility] YOUnite XR KNEE HOLLY 3VOrdered By: Ra camposevan Radiology on 06-14-2024 [facility] e Work Phone: Dayo 05-16-2024 L - -------- Specimen: [id number] Received: 05/16/24 Status: LALY Farhat Num: [id number] Spec Type: Surgical Subm Dr: Sivakumar Juárez MD Tissues: A Soft Tissue Mass - Biopsy (HIATAL HERNIA POLYP) B Gastric Biopsy (GASTRIC BX) C Esophagus Biopsy (ESOPHAGUS BX) Procedures: HE/8, Gross/Micro L5, Gross/Micro L4/2, H PYLORI/2 -------- Age/ Patient Sex Location Account Attending Physician -------- Анна Amaya Kenna 63/F [id number] Sivakumar Juárez MD -------- SPEC NUM: [id number] RECD: 05/16/24 STATUS: LALY DOUGHERTY NUM: [id number] KARAN: 05/16/[address] [facility] [address]: Sivakumar Juárez MD ENTERED: 05/16/[address] [facility] [address]: DAVID TYPE: Surgical DEPT: S ENTERED BY: [id number] RECV BY: [id number] ORDERED: HE/8, Gross/Micro L5, Gross/Micro L4/2, H [...] pylori, Part rule out Ruth's -------- Specimen: [id number] Received: 05/16/24 Status: LALY Dougherty Num: [id number] Spec Type: Surgical Subm Dr: Sivakumar Juárez MD Tissues: A Soft Tissue Mass - Biopsy (HIATAL HERNIA POLYP) B Gastric Biopsy (GASTRIC BX) C Esophagus Biopsy (ESOPHAGUS BX) Procedures: HE/8, Gross/Micro L5, Gross/Micro L4/2, H PYLORI/2 -------- Patient: Анна Amaya Kenna [id number] (Continued) -------- Specimen: [id number] Received: 05/16/24 (Continued) Signed (signature on file) Allison Chi MD 05/20/24 1410 -------- Specimen: [id number] Received: 05/16/24 Status: LALY Dougherty Num: [id number] Spec Type: Surgical Subm Dr: Sivakumar Juárez MD Tissues: A Soft Tissue Mass - Biopsy (HIATAL HERNIA POLYP) B Gastric Biopsy (GASTRIC BX) C Esophagus Biopsy (ESOPHAGUS BX) Procedures: HE/8, Gross/Micro L5, Gross/Micro L4/2, H PYLORI/2 -------- Patient: Анна Amaya V [id number] (Continued) -------- Specimen: [id number] Received: 05/16/24-1406 (Continued) Gross Description Part A is received [...] specimen entirely submitted in A2. (2, ns, [id number] A)JG Part B is received in formalin labeled with the patients name, date of , and gastric BX are 2 burr-mac, focally erythematous, friable, 0.3 cm each in greatest dimension tissue bits. (1, ns, S26-172 B)JG Part See is received in formalin labeled with the patients name, date of , and esophagus BX are 2 pale mac, focally erythematous, feathery, 0.1 to 0.3 cm in greatest dimension tissue bits. The specimen is entirely submitted in a single cassette. (1, ns, R61-033 C) CPT Codes 90022u2, 16607 -------- -------- Specimen: [id number] Received: 05/16/24 Status: LALY Domingoagnes Num: [id number] Spec Type: Surgical Subm Dr: Sivakumar Juárez MD Tissues: A Soft Tissue Mass - Biopsy (HIATAL HERNIA POLYP) B Gastric Biopsy (GASTRIC BX) C Esophagus Biopsy (ESOPHAGUS BX) Procedures: HE/8, Gross/Micro L5, Gross/Micro L4/2, H PYLORI/2 -------- Patient: Анна Amaya V F01 (more content not included)... Normal [facility] ALL BASIC METABOLIC PANELon 01-25-2024 Anion gap [Moles/Vol] 14.2 mmol/L [facility] Calcium [Mass/Vol] 9.4 mg/dL 8.5 - 10. 1 mg/dL [facility] Chloride [Moles/Vol] 101 mmol/L 98 - 10 7 mmol/L [facility] CO2 [Moles/Vol] 26.3 mmol/L 21.0 - 32.0 mmol/L [facility] Creatinine [Mass/Vol] 1.18 mg/dL High 0.55 - 1.02 mg/dL [facility] GFR/1.73 sq M.predicted CKD-EPI (S/P/Bld) [Vol rate/Area] 56 Low >=60 mL/min/1.73m 2 [facility] Glucose [Mass/Vol] 108 mg/dL High 74 - 106 mg/dL [facility] Interpretation and review of laboratory results Abnormal [facility] Potassium [Moles/Vol] 3.5 mmol/L 3.5 - 5.1 mmol/L [facility] Sodium [Moles/Vol] 138 mmol/L 136 - 145 mmol/L [facility] TBH EGFR-NON AF BHUTANESE 46 Low >=60 mL/min/1.73m 2 [facility] Urea nitrogen [Mass/Vol] 17.0 mg/dL 7.0 - 18.0 mg/dL [facility] Urea nitrogen/Creatinine [Mass ratio] 14.4 mg/mg [facility] ALL CBC WITH AUTO DIFFon BASOPHILS ABSOLUTE AUTO 0.0 [facility] Basophils/100 WBC (Bld) 0.4 % 0.2 - 2.0 % [facility] Eosinophils/100 WBC (Bld) 1.8 % 0.9 - 7.0 % [facility] Erythrocyte distribution width (RBC) [Ratio] 14.3 % 11.0 - 15.0 % [facility] Hematocrit (Bld) [Volume fraction] 40.3 % 36.0 - 48.0 % [facility] Hemoglobin (Bld) [Mass/Vol] 12.7 g/dL 12.0 - 16.0 g/dL [facility] IMMATURE GRANULOCYTES ABS AUTO 0.01 [facility] Immature granulocytes/100 WBC (Bld) 0.1 % 0.0 - 0.5 % [facility] Interpretation and review of laboratory results Abnormal [facility] LYMPHOCYTES ABSOLUTE AUTO 2.4 [facility] Lymphocytes/100 WBC (Bld) 32.9 % 20.5 - 60.0 % [facility] MCH (RBC) [Entitic mass] 30.0 pg 26.7 - 34.0 pg [facility] MCHC (RBC) [Mass/Vol] 31.5 g/dL 29.9 - 35.2 g/dL [facility] MCV (RBC) [Entitic vol] 95.0 fL 81.0 - 99.0 fL [facility] MONOCYTES ABSOLUTE AUTO 0.4 [facility] Monocytes/100 WBC (Bld) 6.0 % 1.7 - 12.0 % [facility] NEUTROPHILS ABSOLUTE AUTO 4.3 [facility] Neutrophils/100 WBC (Bld) 58.8 % 43.0 - 75.0 % [facility] Platelet mean volume (Bld) [Entitic vol] 8.6 [...] : DR ERIKA ZEE M.D. Admission #: [id number] Family : Order #: [id number] CLICK HERE TO VIEW EXAM RADIOLOGY REPORT [...] Treatments None Family Cancers None LOCATION: [facility] BREAST COMPOSITION: Scattered areas fibroglandular density. FINDINGS: [...] MD on 10/20/2021 at 09:[address] [facility] TSH w/ Reflex to Free T4on 0 09-07-2021 TSH 1.990 uIU/mL Normal 0.400-4.500 [facility] Information Technology Account Manager Comment on above: Performed By: #### T SH reflex FT4 #### [facility] [address] [place], [place] [id number] Complete Blood Count with Au to Diffon 07-27-2021 Basophils (Bld) [#/Vol] 0.05 10*3/uL Normal 0.00-0.20 [facility] Specialist Comment on above: Performed By: #### L IPD, TSH reflex FT4, CMP, FT4, CBCAD #### [facility] [address] [place], [place] [id number] Basophils/100 WBC (Bld) 0.9 % Normal [facility] Comment on above: Performed By: #### L IPD, TSH reflex FT4, CMP, FT4, CBCAD #### [facility] [address] [place], [place] [id number] Eosinophils (Bld) [#/Vol] 0.41 10*3/uL Normal 0.02-0.50 [facility] Specialist Comment on above: Performed By: #### L IPD, TSH reflex FT4, CMP, FT4, CBCAD #### [facility] [address], [place] [id number] Eosinophils/100 WBC (Bld) 7.2 % Normal [facility] Specialist Comment on above: Performed By: #### L IPD, TSH reflex FT4, CMP, FT4, CBCAD #### [facility] [address], [place] [id number] Erythrocyte distribution width (RBC) [Ratio] 13.4 % Normal 11.0-15.0 [facility] Specialist Comment on above: Performed By: #### L IPD, TSH reflex FT4, CMP, FT4, CBCAD #### [facility] [address], [place] [id number] Hematocrit (Bld) [Volume fraction] 41.2 % Normal 35.0-47.0 [facility] Specialist Comment on above: Performed By: #### L IPD, TSH reflex FT4, CMP, FT4, CBCAD #### [facility] [address] [place], [place] [id number] Hemoglobin (Bld) [Mass/Vol] 13.1 g/dL Normal 11.6-15.5 [facility] Specialist Comment on above: Performed By: #### L IPD, TSH reflex FT4, CMP, FT4, CBCAD #### [facility] [address] [place], [place] [id number] Lymphocytes (Bld) [#/Vol] 1.8 10*3/uL Normal 0.9-3.9 [facility] Specialist Comment on above: Performed By: #### L IPD, TSH reflex FT4, CMP, FT4, CBCAD #### [facility] [address] [place], [place] [id number] Lymphocytes/100 WBC (Bld) 31.8 % Normal [facility] Specialist Comment on above: Performed By: #### L IPD, TSH reflex FT4, CMP, FT4, CBCAD #### [facility] [address] [place], [place] [id number] MCH (RBC) [Entitic mass] 29.3 pg Normal 27.0-33.0 [facility] Specialist Comment on above: Performed By: #### L IPD, TSH reflex FT4, CMP, FT4, CBCAD #### [facility] [address] [place], [place] [id number] MCHC (RBC) [Mass/Vol] 31.8 g/dL Low 32.0-36.0 [facility] Specialist Comment on above: Performed By: #### L IPD, TSH reflex FT4, CMP, FT4, CBCAD #### [facility] [address], [place] [id number] MCV (RBC) [Entitic vol] 92 fL Normal 80-100 [facility] Specialist Comment on above: Performed By: #### L IPD, TSH reflex FT4, CMP, FT4, CBCAD #### [facility] [address], [place] [id number] Monocytes (Bld) [#/Vol] 0.5 10*3/uL Normal 0.2-0.9 [facility] Specialist Comment on above: Performed By: #### L IPD, TSH reflex FT4, CMP, FT4, CBCAD #### [facility] [address], [place] [id number] Monocytes/100 WBC (Bld) 8.1 % Normal [employer] Account Manager Comment on above: Performed By: #### L IPD, TSH reflex FT4, CMP, FT4, CBCAD #### [facility] [address] [place], [place] [id number] Neutrophils (Bld) [#/Vol] 3.0 10*3/uL Normal 1.5-7.8 [facility] Comment on above: Performed By: #### L IPD, TSH reflex FT4, CMP, FT4, CBCAD #### [facility] [address] [place], [place] [id number] Neutrophils/100 WBC (Bld) 51.6 % Normal [facility] Comment on above: Performed By: #### L IPD, TSH reflex FT4, CMP, FT4, CBCAD #### [facility] [address] [place], [place] [id number] Platelet mean volume (Bld) [Entitic vol] 9.50 fL Normal 7.50-12.50 [facility] Comment on above: Performed By: #### L IPD, TSH reflex FT4, CMP, FT4, CBCAD #### [facility] [address] [place], [place] [id number] Platelets (Bld) [#/Vol] 367 10*3/uL Normal 140-400 [facility] Specialist Comment on above: Performed By: #### L IPD, TSH reflex FT4, CMP, FT4, CBCAD #### [facility] [address] [place], [place] [id number] RBC (Bld) [#/Vol] 4.47 10*6/uL Normal 3.90-5.20 [facility] Comment on above: Performed By: #### L IPD, TSH reflex FT4, CMP, FT4, CBCAD #### [facility] [address] [place], [place] [id number] RDW-SD 45.9 fL Normal 37.0-50.0 [facility] Specialist Comment on above: Performed By: #### L IPD, TSH reflex FT4, CMP, FT4, CBCAD #### [facility] [address] [place], [place] [id number] WBC (Bld) [#/Vol] 5.7 10*3/uL Normal 3.8-11.0 Carmelo rn [employer] Account Manager Comment on above: Performed By: #### L IPD, TSH reflex FT4, CMP, FT4, CBCAD #### [facility] [address] [place], [place] [id number] Comprehensive Metabolic Pane dayo 07-27-2021 Albumin [Mass/Vol] 4.5 g/dL Normal 3.6-5.1 [facility]elo rn [employer] Account Manager Comment on above: Performed By: #### L IPD, TSH reflex FT4, CMP, FT4, CBCAD #### [facility] [address] [place], [place] [id number] Albumin/Globulin [Mass ratio] 1.7 {ratio} Normal 1.0-2.5 [facility] Information Technology Account Manager Comment on above: Performed By: #### L IPD, TSH reflex FT4, CMP, FT4, CBCAD #### [facility] [address] [place], [place] [id number] ALP [Catalytic activity/Vol] 89 U/L Normal 35-119 [facility] Specialist Comment on above: Performed By: #### L IPD, TSH reflex FT4, CMP, FT4, CBCAD #### [facility] [address] [place], [place] [id number] ALT [Catalytic activity/Vol] 27 U/L Normal 6-33 [facility] Specialist Comment on above: Result Comment: 03/24 Female reference range changed. Performed By: #### L IPD, TSH reflex FT4, CMP, FT4, CBCAD #### [facility] [address] [place], [place] [id number] Anion gap [Moles/Vol] 18 mmol/L Normal 12-20 [facility] [employer] Account Manager Comment on above: Result Comment: Effe ctive 04/29/2019 reference range changed. Performed By: #### L IPD, TSH reflex FT4, CMP, FT4, CBCAD #### [facility] [address] [place], [place] [id number] AST [Catalytic activity/Vol] 25 U/L Normal 9-34 [facility] Information [employer] Account Manager Comment on above: Performed By: #### L IPD, TSH reflex FT4, CMP, FT4, CBCAD #### [facility] [address] [place], [place] [id number] BUN/CREA 22 Ratio Normal 6-22 [facility] Comment on above: Performed By: #### L IPD, TSH reflex FT4, CMP, FT4, CBCAD #### [facility] [address] [place], [place] [id number] Calcium [Mass/Vol] 9.5 mg/dL Normal 8.6-10.2 [facility] Comment on above: Performed By: #### L IPD, TSH reflex FT4, CMP, FT4, CBCAD #### [facility] [address] [place], [place] [id number] Chloride [Moles/Vol] 102 mmol/L Normal 98-107 [facility] Comment on above: Performed By: #### L IPD, TSH reflex FT4, CMP, FT4, CBCAD #### [facility] [address] [place], [place] [id number] CO2 [Moles/Vol] 26 mmol/L Normal 20-31 [facility] Comment on above: Performed By: #### L IPD, TSH reflex FT4, CMP, FT4, CBCAD #### [facility] [address] [place], [place] [id number] Creatinine [Mass/Vol] 1.0 mg/dL Normal 0.6-1.4 [facility] Comment on above: Performed By: #### L IPD, TSH reflex FT4, CMP, FT4, CBCAD #### [facility] [address] [place], [place] [id number] eGFRAA 72 mL/min/1.73m2 Normal >60 [facility] Specialist Comment on above: Performed By: #### L IPD, TSH reflex FT4, CMP, FT4, CBCAD #### [facility] [address] [place], [place] [id number] eGFRNAA 60 mL/min/1.73m2 Low >60 [facility] Comment on above: Performed By: #### L IPD, TSH reflex FT4, CMP, FT4, CBCAD #### [facility] [address] [place], [place] [id number] Globulin (S) [Mass/Vol] 2.6 g/dL Normal 1.9-3.7 [facility] [employer] Account Manager Comment on above: Performed By: #### L IPD, TSH reflex FT4, CMP, FT4, CBCAD #### [facility] [address] [place], [place] [id number] Glucose [Mass/Vol] 110 mg/dL High 65-99 [facility] Information Technology Account Manager Comment on above: Result Comment: For FASTING Glucose --- ADA reference ranges: Normal 65-99 mg/dl Prediabetes 100-125 Diabetes >/= 126 Performed By: #### L IPD, TSH reflex FT4, CMP, FT4, CBCAD #### [facility] [address] [place], [place] [id number] Potassium [Moles/Vol] 3.5 mmol/L Normal 3.5-5.5 [facility] [employer] Account Manager Comment on above: Performed By: #### L IPD, TSH reflex FT4, CMP, FT4, CBCAD #### [facility] [address] [place], [place] [id number] Protein [Mass/Vol] 7.1 g/dL Normal 6.1-8.1 [facility] Information Technology Account Manager Comment on above: Performed By: #### L IPD, TSH reflex FT4, CMP, FT4, CBCAD #### [facility] [address] [place], [place] [id number] Sodium [Moles/Vol] 142 mmol/L Normal 135-146 [facility] Information Technology Account Manager Comment on above: Performed By: #### L IPD, TSH reflex FT4, CMP, FT4, CBCAD #### [facility] [address] [place], [place] [id number] TBIL <0.3 Normal [facility] Information [employer] Account Manager Comment on above: Performed By: #### L IPD, TSH reflex FT4, CMP, FT4, CBCAD #### [facility] [address] [place], [place] [id number] Urea nitrogen [Mass/Vol] 21 mg/dL Normal 7-25 [facility] [employer] Account Manager Comment on above: Performed By: #### L IPD, TSH reflex FT4, CMP, FT4, CBCAD #### [facility] [address] [place], [place] [id number] Free T4on 07-27-2021 Free T4 [Mass/Vol] 1.17 ng/dL Normal 0.80-1.80 [facility] Comment on above: Performed By: #### L IPD, TSH reflex FT4, CMP, FT4, CBCAD #### [facility] [address] [place], [place] [id number] Lipid Panelon 07-27-2021 Cholesterol [Mass/Vol] 256 mg/dL High 125-200 [facility] Comment on above: Result Comment: Low risk < 200mg/dL Borderline risk 201-239 mg/dl High risk > or equal to 240 Performed By: #### L IPD, TSH reflex FT4, CMP, FT4, CBCAD #### [facility] [address] [place], [place] [id number] Cholesterol in HDL [Mass/Vol] 68 mg/dL Normal >40 [facility] Specialist Comment on above: Result Comment: High Cardiovascular Risk HDL <40 mg/dL Low Cardiovascular Risk HDL > or equal to 60 mg/dl Performed By: #### L IPD, TSH reflex FT4, CMP, FT4, CBCAD #### [facility] [address] [place], [place] [id number] Cholesterol in LDL [Mass/Vol] 170 mg/dL Normal [facility] Comment on above: Result Comment: LDL ATP III CLASSIFICATION LDL less than 100 mg/dl Optimal LDL 100-129 mg/dl Near or above optimal LDL 130-159 Borderline high LDL 160-189 High LDL greater than 189 mg/dl Very High Performed By: #### L IPD, TSH reflex FT4, CMP, FT4, CBCAD #### [facility] [address] [place], [place] [id number] Cholesterol in VLDL [Mass/Vol] 18 mg/dL Normal [facility] Comment on above: Performed By: #### L IPD, TSH reflex FT4, CMP, FT4, CBCAD #### [facility] [address] [place], [place] [id number] Cholesterol.total/Ch olesterol in HDL [Mass ratio] 4 {ratio} Normal [facility] Comment on above: Performed By: #### L IPD, TSH reflex FT4, CMP, FT4, CBCAD #### [facility] [address] [place], [place] [id number] Triglyceride [Mass/Vol] 89 mg/dL Normal 30-150 [facility] [employer] Account Manager Comment on above: Result Comment: TRIG ATPIII CLASSIFICATIONS TRIG less than 150 mg/dl Normal TRIG 150-199 mg/dl Borderline High TRIG 200-500 mg/dl High TRIG greather than 500 mg/dl Very High Performed By: #### L IPD, TSH reflex FT4, CMP, FT4, CBCAD #### [facility] [address] [place], [place] [id number] TSH w/ Reflex to Free T4on 0 07-27-2021 FT4 reflex Free T4 Normal [facility] Specialist Comment on above: Performed By: #### L IPD, TSH reflex FT4, CMP, FT4, CBCAD #### [facility] [address] [place], [place] [id number] TSH 6.030 uIU/mL High 0.400-4.500 [facility] Information Technology Account Manager Comment on above: Performed By: #### L IPD, TSH reflex FT4, CMP, FT4, CBCAD #### [facility] [address] [place], [place] [id number] [facility]on SARS-CoV-2 (COVID-19) RNA IVAN+probe Ql (Unsp spec) Not detected Normal NOT DETECTED [facility] Comment on above: Result Comment: This test is not yet approved or cleared by the [place] FDA. When there are no FDA-approved or cleared tests available, and other criteria are met, FDA can make tests available under an emergency access mechanism called an Emergency Use Authorization (EUA). The EUA for this test is supported by the [place] of Health and Human Service's (HHS's) declaration [...] consistent with SARS-CoV-2. Performed By: #### C TB #### [facility] [address] [place] [address] Dr. Dontae Toth Vital Signs Date Time Vital Sign Value Performing Clinician Facility 08-20-2024 08:58-0400 Body height 154.9 cm Franny Hemmer PA Work Phone: [facility] 08-20-2024 08:58-0400 Body mass index (BMI) [Ratio] 29.32 kg/m2 Franny Hemmer PA Work Phone: [facility] 08-20-2024 08:58-0400 Body weight 70.4 kg Franny Hemmer PA Work Phone: [facility] 08-20-2024 08:58-0400 Diastolic blood pressure 82 mm[Hg] Franny Hemmer PA Work Phone: [facility] 08-20-2024 08:58-0400 Heart rate 93 /min Franny Hemmer PA Work Phone: [facility] 08-20-2024 08:58-0400 Respiratory rate 16 /min Franny Hemmer PA Work Phone: [facility] 08-20-2024 08:58-0400 SaO2% (BldA) [Mass fraction] 95 % Franny Hemmer PA Work Phone: [facility] 08-20-2024 08:58-0400 Systolic blood pressure 122 mm[Hg] Franny Hemmer PA Work Phone: [facility] 07-18-2024 08:33-0400 Diastolic blood pressure 84 mm[Hg] Donaldo Mills MD [facility] 07-18-2024 08:33-0400 Systolic blood pressure 124 mm[Hg] Donaldo Mills MD [facility] 06-10-2024 11:40-0500 Body height 154.9 cm Franny Hemmer PA Work Phone: [facility] 06-10-2024 11:40-0500 Body mass index (BMI) [Ratio] 29.89 kg/m2 Franny Hemmer PA Work Phone: [facility] 06-10-2024 11:40-0500 Body weight 71.76 kg Franny Hemmer PA Work Phone: [facility] 06-10-2024 11:40-0500 Diastolic blood pressure 72 mm[Hg] Franny Hemmer PA Work Phone: [facility] 06-10-2024 11:40-0500 Heart rate 87 /min Franny Hemmer PA Work Phone: [facility] 06-10-2024 11:40-0500 Respiratory rate 16 /min Franny Hemmer PA Work Phone: [facility] 06-10-2024 11:40-0500 SaO2% (BldA) [Mass fraction] 96 % Franny Hemmer PA Work Phone: [facility] 06-10-2024 11:40-0500 Systolic blood pressure 108 mm[Hg] Franny Hemmer PA Work Phone: [facility] 05-16-2024 14:25-0500 Diastolic blood pressure 65 mm[Hg] Erika Zee MD Work Phone: [facility] 05-16-2024 14:25-0500 Heart rate 75 /min Erika Zee MD Work Phone: [facility] 05-16-2024 14:25-0500 Respiratory rate 16 /min Erika Zee MD Work Phone: [facility] 05-16-2024 14:25-0500 SaO2% (BldA) [Mass fraction] 96 % Erika Zee MD Work Phone: [facility] 05-16-2024 14:25-0500 Systolic blood pressure 115 mm[Hg] Erika Zee MD Work Phone: [facility] 05-16-2024 12:12-0500 Body height 154.94 cm Erika Zee MD Work Phone: [facility] 05-16-2024 12:12-0500 Body weight 68.03 kg Erika Zee MD Work Phone: [facility] 04-02-2024 10:32-0500 Body height 154.9 cm Franny Hemmer PA Work Phone: [facility] 04-02-2024 10:32-0500 Body mass index (BMI) [Ratio] 29.02 kg/m2 Franny Hemmer PA Work Phone: [facility] 04-02-2024 10:32-0500 Body weight 69.67 kg Franny Hemmer PA Work Phone: [facility] 04-02-2024 10:32-0500 Diastolic blood pressure 88 mm[Hg] Franny Hemmer PA Work Phone: [facility] 04-02-2024 10:32-0500 Heart rate 88 /min Franny Hemmer PA Work Phone: [facility] 04-02-2024 10:32-0500 Respiratory rate 16 /min Franny Hemmer PA Work Phone: [facility] 04-02-2024 10:32-0500 SaO2% (BldA) [Mass fraction] 96 % Franny Hemmer PA Work Phone: [facility] 04-02-2024 10:32-0500 Systolic blood pressure 124 mm[Hg] Franny Hemmer PA Work Phone: [facility] 01-10-2024 16:38-0400 Body height 154.9 cm Franny Hemmer PA Work Phone: [facility] 01-10-2024 16:38-0400 Body mass index (BMI) [Ratio] 28 kg/m2 Franny Hemmer PA Work Phone: [facility] 01-10-2024 16:38-0400 Body weight 67.22 kg Franny Hemmer PA Work Phone: [facility] 01-10-2024 16:38-0400 Diastolic blood pressure 72 mm[Hg] Franny Hemmer PA Work Phone: [facility] 01-10-2024 16:38-0400 Heart rate 85 /min Franny Bossmer PA Work Phone: [facility] 01-10-2024 16:38-0400 Respiratory rate 16 /min Frannymilan Mcdermott PA Work Phone: [facility] 01-10-2024 16:38-0400 SaO2% (BldA) [Mass fraction] 97 % Franny Mcdermott PA Work Phone: [facility] 01-10-2024 16:38-0400 Systolic blood pressure 116 mm[Hg] Franny Mcdermott PA Work Phone: [facility] Encounters Encounter Date Encounter Type Care Provider Facility Start: 08-20-2024 End: 08-20-2024 Bamboo flowsheet Franny Mcdermott PA Work Phone: [facility] Start: 08-20-2024 End: 08-20-2024 Bamboo flowsheet Franny Mcdermott PA Work Phone: [facility] Start: 08-20-2024 End: 08-20-2024 Office outpatient visit 15 minutes Franny Mcdermott PA Work Phone: [facility] Comment on above: Lumbar strain, initi al encounter (Primary Dx); Rheumatoid arthritis, unspecified Start: 08-20-2024 End: 08-20-2024 ambulatory FRANNY MCDERMOTT Not Available Start: 07-18-2024 End: 07-18-2024 Office outpatient visit 15 minutes Donaldo Al Navweiki Work Phone: [facility] Start: 07-18-2024 ambulatory Donaldo Al Shweiki [facility] Start: 06-14-2024 End: 06-14-2024 Clinisync Result Encounter Franny Mcdermott PA Work Phone: [facility] Unsolicited Start: 06-14-2024 End: 06-14-2024 Clinisync Result Encounter Franny Mcdermott PA Work [...] / Non-visit Erika Zee MD Work Phone: [facility] Work Phone: Start: 05-16-2024 End: 05-16-2024 Admission to same day surgery center Erika Zee MD Work Phone: [facility] Work Phone: Start: 05-16-2024 End: 05-16-2024 ambulatory Erika Zee MD Work Phone: [facility] Work Phone: Start: 04-02-2024 [...] cough Start: 04-02-2024 End: 04-02-2024 ambulatory FRANNY Thomas BALDEMAR Not Available Start: 01-25-2024 End: 01-25-2024 Clinisync Result Encounter Frannymilan Mcdermott PA Work Phone: [facility] Unsolicited Start: 01-25-2024 End: 01-25-2024 Clinisync Result Encounter Franny Mcdermott PA Work Phone: [facility] Unsolicited Start: 01-19-2024 End: 01-19-2024 Office outpatient visit 15 minutes Donaldo Mills Work Phone: [facility] Start: 01-19-2024 ambulatory Donaldo Mills [facility] Start: 01-16-2024 End: 01-16-2024 Clinisync Result Encounter Franny GILES Work Phone: [facility] Unsolicited Start: 01-16-2024 End: 01-16-2024 Clinisync Result Encounter Franny Mcdermott PA Work Phone: [facility] Unsolicited Start: 01-16-2024 End: 01-16-2024 Telephone encounter Franny GILES Work Phone: [facility] Start: 01-10-2024 End: 01-10-2024 Patient encounter procedure Franny GILES Work Phone: [facility] Comment on above: Medicare annual [facility] visit, initial (Primary Dx); ACP (advance care planning); Difficulty sleeping; EVIE (obstructive sleep apnea); Other chronic pain; Tension headache; CPAP (continuous positive airway pressure) dependence; Moderate persistent asthma without complication (CMS/HCC); Benign hypertension (CMS/HCC); Dysphagia, unspecified type; Gastroesophageal reflux disease without esophagitis; Stage 3a chronic kidney disease (HCC) ([facility]); Ankylosis, right shoulder; Inflammation of right sacroiliac joint ([facility]/HCC); Acquired hypothyroidism ([facility]); Overweight (BMI 25.0-29.9); Thrombocytosis; Elevated LDL cholesterol level ([facility]); Generalized anxiety disorder ([facility]); History of total hysterectomy; Hypokalemia; Retinitis pigmentosa; Seasonal allergies; Other problems related to lifestyle; Atherosclerosis of aorta ([facility]) Start: 01-10-2024 End: 01-10-2024 ambulatory FRANNY MCDERMOTT Not Available Start: 01-10-2024 End: 01-10-2024 BamS-cubismo flowsheet Franny Mcdermott PA Work Phone: [facility] Start: 01-10-2024 End: 01-10-2024 Bamboo flowsheet Franny Mcdermott PA Work Phone: [facility] Start: 11-02-2023 End: 11-02-2023 ambulatory DORITA DYE Not Available Start: 10-31-2023 End: 10-31-2023 ambulatory SANDEEP HARRELL Not Available Start: 10-05-2023 End: 10-05-2023 ambulatory DORITA DYE Not Available Start: 09-14-2023 End: 09-14-2023 ambulatory ERROL BURGESS Not Available Start: 02-15-2023 End: 02-15-2023 Office outpatient visit 15 minutes José Miguel Elliott Work Phone: [facility] Start: 02-10-2022 End: 02-10-2022 Office outpatient visit 15 minutes José Miguel Elliott Work Phone: [facility] Start: 10-20-2021 End: 10-21-[address] ERIKA ZEE Facility: Start: 07-21-2021 End: 07-21-2021 Doctor Corporate Work Phone: [facility] Start: 03-24-2021 End: 03-24-2021 Doctor Corporate Work Phone: [facility] Start: 03-22-2021 End: 03-23-[address] ERIKA ZEE Facility:[facility] Start: 02-22-2021 End: 02-23-[address] FRANNY MCDERMOTT Facility:[facility] Start: 01-22-2021 End: 01-22-[address] ERIKA ZEE Facility:[facility] Start: 11-25-2020 End: 11-25-2020 Will Irby Work Phone: [facility] Start: 12-04-2019 End: 12-04-2019 Will Irby Work Phone: [facility] Start: 12-12-2018 End: 12-12-2018 Will Irby Work Phone: [facility] Start: 02-05-2018 End: 02-05-2018 Odalis Alarcon Work Phone: [facility] Start: 11-01-2017 End: 11-01-2017 Will Irby Work Phone: [facility] Start: 10-26-2016 End: 10-26-2016 Will Irby Work Phone: [facility] Start: 11-11-2015 End: 11-11-2015 Will Irby Work Phone: [facility] Start: 11-19-2014 End: 11-19-2014 Will Irby Work Phone: [facility] Start: 03-12-2014 End: 03-12-2014 Office outpatient new 45 minutes Will Irby Work Phone: [facility] Procedures Date Procedure Procedure Detail Performing Clinician Start: 07-18-2024 End: 07-18-2024 Computerized ophthalmic imaging retina Donaldo Mills Start: 06-14-2024 XR KNEE HOLLY 3V Franny Mcdermott PA Work Phone: Start: 06-14-2024 ALL BASIC METABOLIC PANEL Franny Mcdermott PA Work Phone: Start: 05-16-2024 Esophagogastroduodenoscopy Erika Zee MD Work Phone: Start: 01-25-2024 ALL BASIC METABOLIC PANEL Franny GILES Work Phone: Start: 01-19-2024 End: 01-19-2024 Computerized ophthalmic imaging retina Donaldo Mills Start: 01-19-2024 Fundus Photos No Charge Donaldo Yarbrough i Start: 01-19-2024 End: 01-19-2024 Fundus Photos No Charge Bilateral Donaldo Mills MD Start: 01-16-2024 ALL CBC WITH AUTO DIFF Franny GILES Work Phone: Start: 10-30-2023 Mammography Franny GILES Work Phone: Start: 02-15-2023 End: 02-15-2023 Computerized [...] imaging retina Donaldo Mills MD Start: 11-21-2018 Colonoscopy Franny GILES Work Phone: Start: 02-05-2018 End: [...] Screening for malign ant neoplasm of colon [facility] Start: 02-17-2025 Ana Amaya goran 6-8mo DFE W OCT (7) [facility] Work Phone: Start: 01-09-2025 Medicare Annual Wellness (AWV) Medicare Annual Wellness (AWV) [facility] Start: 10-29-2024 Screening for malign ant neoplasm of breast Mammogram [facility] Start: 08-20-2024 End: 08-20-2024 Patient encounter procedure 08/20/2024 9:00 AM EDT Office Visit [facility] [address] [facility] [address] [place] [id number] Franny Mcdermott PA [address] [facility] [address] [place] [address] Arrived [facility] Comment on above: Arrived Start: 06-10-2024 End: 06-10-2025 Basic metabolic 1998 panel - Serum or Plasma Basic metabolic panel Lab Routine Near syncope Hypokalemia Benign hypertension (CMS/HCC) Expected: 06/10/2024 (Approximate), Expires: 06/10/2025 [facility] Work Phone: Comment on above: Expected: 06/10/2024 (Approximate), Expires: 06/10/2025 Start: 06-10-2024 End: 06-10-2025 XR Knee - bilateral 3 Views XR knee 3 views bilateral Imaging Routine Chronic pain of both knees Expected: 06/10/2024, Expires: 06/10/2025 [facility] Comment on above: Expected: 06/10/2024 , Expires: 06/10/2025 Start: 06-10-2024 End: 06-10-2024 Patient encounter procedure 06/10/2024 11:30 AM EST Office Visit [facility] [address] [place] [address] [place] [address] Franny Mcdermott PA [address] [facility] [address] [place] [address] Arrived [facility] Comment on above: Arrived Start: 06-06-2024 End: 06-06-2024 Patient encounter procedure 06/06/2024 9:00 AM EST Office Visit [facility] [address] [place] [address] [place] [address] Franny Mcdermott PA [address] [place] [address] [place] [address] [facility] Start: 05-16-2024 [facility] Start: 04-02-2024 End: 04-02-2024 Patient encounter procedure 04/02/2024 10:30 AM EST Office Visit [facility] [address] [place] [address] [place] [address] Franny Mcdermott PA [address] [place] [address] [place] [address] Arrived [facility] Comment on above: Arrived Start: 01-23-2024 End: 01-15-2025 Basic metabolic 1998 panel - Serum or Plasma Basic metabolic panel Lab Routine Hypokalemia Expected: 01/23/2024 (Approximate), Expires: 01/15/2025 [facility] Work Phone: Comment on above: Expected: 01/23/2024 (Approximate), Expires: 01/15/2025 Start: 01-10-2024 End: 01-10-2024 Patient encounter procedure 01/10/2024 4:30 PM EDT Office Visit [facility] [address] [place] [address] [place] [address] Franny Mcdermott, PA [address] [place] [address] [place] [address] Arrived [facility] Comment on above: Arrived Start: 01-10-2024 End: 01-09-2025 CBC W Auto Differential panel - Blood CBC and differential Lab Routine Medicare annual wellness visit, initial Benign hypertension (CMS/HCC) Thrombocytosis Expected: 01/10/2024 (Approximate), Expires: 01/09/2025 [facility] Work Phone: Comment on above: Expected: 01/10/2024 (Approximate), Expires: 01/09/2025 Start: 01-10-2024 End: 01-09-2025 Comprehensive metabolic 2000 panel - Serum or Plasma Comprehensive metabolic panel Lab Routine Medicare annual wellness visit, initial Benign hypertension (CMS/HCC) Stage 3a chronic kidney disease (HCC) (CMS/HCC) Hypokalemia Expected: 01/10/2024 (Approximate), Expires: 01/09/2025 [facility] Comment on above: Expected: 01/10/2024 (Approximate), Expires: 01/09/2025 Start: 01-10-2024 End: 01-09-2025 HEPATITIS C AB W/RFL RNS, PCR W/RFL GENOTYPE,LIPA HEPATITIS C AB W/RFL RNS, PCR W/RFL GENOTYPE,LIPA Lab Routine Medicare annual wellness visit, initial Other problems related to lifestyle Expected: 01/10/2024 (Approximate), Expires: 01/09/2025 [facility] Comment on above: Expected: 01/10/2024 (Approximate), Expires: 01/09/2025 Start: 01-10-2024 End: 01-09-2025 Lipid 1996 panel - Serum or Plasma Lipid panel Lab Routine Medicare annual wellness visit, initial Benign hypertension (CMS/HCC) Elevated LDL cholesterol level (CMS/HCC) Expected: 01/10/2024 (Approximate), Expires: 01/09/2025 [facility] Comment on above: Expected: 01/10/2024 (Approximate), Expires: 01/09/2025 Start: 01-10-2024 End: 01-09-2025 TSH W/REFLEX TO FT4 TSH W/REFLEX TO FT4 Lab Routine Medicare annual wellness visit, initial Acquired hypothyroidism (CMS/HCC) Expected: 01/10/2024 (Approximate), Expires: 01/09/2025 [facility] Comment on above: Expected: 01/10/2024 (Approximate), Expires: 01/09/2025 Start: 12-24-2023 Influenza vaccination Influenza Vacc ine (#1) [facility] Start: 11-16-2023 Medicare Annual Wellness (AWV) Medicare Annual Wellness (AWV) [facility] Start: 11-25-2020 Smoking cessation education Tobacco cessation counseling [facility] Start: 1960 Screening for malign ant neoplasm of colon [facility] Patient Education Esophageal Dil ation Esophageal Stricture (DC) Stomach polyps Hiatal hernia - Discharge instructions [facility] your [facility] Work Phone: Immunizations Immunization Date Immunization Notes Care Provider Ana dunbar 03-01-2024 Seasonal, trivalent, recombinant, injectable influenza vaccine, preservative free Franny Hemmer PA Work Phone: [facility] 06-07-2023 RSV, recombinant, pr otein subunit RSVpreF, adjuvant reconstitu, 120mcg/0.5mL, PF (Arexvy) Franny Hemmatt PA Work Phone: [facility] 12-31-2022 influenza, injectabl e, quadrivalent, preservative free Franny Hemmer PA Work Phone: [facility] 12-31-2022 influenza virus vacc ine, unspecified formulation Franny Hemmer PA Work Phone: [facility] 02-02-2022 zoster vaccine recombinant K lou Hemmer PA Work Phone: [facility] 01-20-2022 SARS-CoV-2, Unspecified Ana Laura chase Hemmer PA Work Phone: [facility] 01-12-2022 influenza, injectabl e, quadrivalent, preservative free Franny Hemmer PA Work Phone: [facility] 12-01-2021 zoster vaccine recombinant K aren Hemmer PA Work Phone: [facility] 02-18-2021 influenza, injectabl e, quadrivalent, preservative free Franny Hemmer PA Work Phone: [facility] 03-21-2020 influenza, injectabl e, quadrivalent, contains preservative Franny Hemmer PA Work Phone: [facility] 03-21-2020 pneumococcal polysaccharide vaccine, 23 valent Franny Hemmer PA Work Phone: [facility] 04-09-2019 tetanus toxoid, redu mayela diphtheria toxoid, and acellular pertussis vaccine, adsorbed Franny Hemmer PA Work Phone: [facility] 01-03-2019 influenza, injectabl e, quadrivalent, preservative free Franny Hemmer PA Work Phone: [facility] 01-03-2019 seasonal influenza, intradermal, preservative free Franny Hemmer PA Work Phone: [facility] 01-25-2018 influenza, injectabl e, quadrivalent, preservative free Franny Hemmer PA Work Phone: [facility] 01-25-2018 seasonal influenza, intradermal, preservative free Franny Hemmer PA Work Phone: [facility] 02-02-2016 influenza, injectabl e, quadrivalent, preservative free Franny Hemmer PA Work Phone: [facility] 02-02-2016 pneumococcal conjuga te vaccine, 13 valent Franny Hemmer PA Work Phone: [facility] 01-23-2016 influenza, seasonal, injectable Donaldo Mills MD [facility] Comment on above: Note: Invalid docume nted admin date was . ; Source: Other Provider 01-23-2016 pneumococcal polysaccharide vaccine, 23 valent Donaldo Mills MD [facility] Comment on above: Note: Invalid docume nted admin date was . ; Source: Other Provider Payers Date Payer Category Payer Self-pay 2024 Unknown [id number] 2023 Medicare [employer] MEDICARE ADVANTAGE [facility] MEDICARE ADVANTAGE [id number] 2023-Present [address] [place] [address] [id number] 2023 Medicare (Managed Care) SELENE MEJIA ADVANTAGE [id number] 2023 Medicare [id number] 1960 Unknown [id number] 2.16.840.1.961082.3.579.2. 593 1960 Unknown [id number] 2.16.840.1.370768.3.579.2. 593 1960 Unknown [id number] 2.16.840.1.148172.3.579.2. 593 1960 Unknown [id number] 2.16.840.1.528568.3.579.2. 593 1960 Unknown [id number] 2.16.840.1.469275.3.579.2. 1347 1960 Unknown [id number] 2.16.840.1.972054.3.579.2. 1347 1960 Unknown [id number] 2.16.840.1.928924.3.579.2. 1259 1960 Unknown [id number] 2.16.840.1.716486.3.579.2. 1259 1960 Unknown [id number] 2.16.840.1.599235.3.579.2. 1259 1960 Unknown [id number] 2.16.840.1.782647.3.579.2. 1259 1960 Unknown [id number] 2.16.840.1.298189.3.579.2. 1259 1960 Unknown [id number] 2.16.840.1.286218.3.579.2. 1259 1960 Unknown [id number] 2.16.840.1.855409.3.579.2. 1259 1960 Unknown [id number] 2.16.840.1.951916.3.579.2. 1259 1959 Unknown [id number] Unknown [id number] 2.16.840.1.030446.3.579.2. 531 Social History Date Type Detail Facility Start: 11-14-2022 End: 05-16-2024 Tobacco smoking status COIS Never smoked tobacco [facility] Start: 11-14-2022 Tobacco use and exposure Smokeless tobacco non-user [facility] Start: 01-10-2024 End: 08-20-2024 Alcoholic beverage intake Current drinker of alcohol [...] 05-16-2024 Sex Patient sex un known (finding) [facility] Start: 1960 Sex Assigned At Female [facility] Start: 07-18-2024 Alcohol intake (observable entity) Alcohol Use Details [facility] Start: 07-18-2024 Health-related behavior (observable entity) Caffeine Use Details [facility] Start: 07-18-2024 Tobacco use and exposure Non-Smoking Tobacco Use Details [facility] How often do you nee d to have someone help you when you read instructions, pamphlets, or other written material from your doctor or pharmacy [SILS] Sometimes [facility] NEGATED: Highlighted rowStart: 07-18-2024 Tobacco smoking status NHIS Unknown if ever smoked [facility] NEGATED: Highlighted rowStart: 07-18-2024 History of tobacco use Current non-smoker [facility] Medical Equipment Procedure Code Equipment Code Equipment Origin al Text Equipment Identifier Dates Phacoemulsification of cataract with intraocular lens implantation Posterior-chamber intraocular lens, pseudophakic ()[id number] FDA Start: 06-06-2019 Phacoemulsification of cataract with intraocular lens implantation Posterior-chamber intraocular lens, pseudophakic ()[id number] FDA Start: 11-21-2019 Goals Date Patient Goal Desired Activity /State Functional Status Date Assessment Result Facility 08-20-2024 Patient Health Quest ionnaire 2 item (PHQ-2) [Reported] [facility] Clinical Notes 01-10-2024 to 08-20-2024 CHAN Elizondo - 08/20/2024 9:00 AM EDT Note Date & Type Note Facility 08-20-2024 History of Presen t illness Narrative Images from the original note were not included. Subjective Patient ID: Анна Amaya is a 64 y.o. female who presents for [facility] ER follow up. Анна is present today for [facility] ER follow up. She was seen at the ER on 08/03/24, Dx. Low back pain, she received a toradol injection and scripts for Tylenol 3, Ibuprofen 800 mg and Robaxin. She did not take any of the meds that were prescribed. She already had muscle relaxers at home and she has stage 3 kidney disease so did not take the Ibuprofen and she does not like the way the codeine makes her feel so did not get that script. So still has the same pain. Describes pain as sharp when she bends over and when she goes from sitting to standing feels like her back locks up and has to wait a few minutes to be able to get up. Pain is all the time and rates pain 7/10. She has not done PT and is not interested in it. Taking the cyclobenzaprine at night. States the Toradol did help for a few days. Current Outpatient Medications on File Prior to Visit Medication Sig Dispense Refill albuterol HFA (Ventolin HFA) 90 mcg/act inhaler Inhale 2 puffs every 4 (four) hours if needed for wheezing or shortness of breath 18 g 5 busPIRone (Buspar) 5 MG tablet Take 1 tablet (5 mg) by mouth 2 (two) times a day as needed (Anxiety) 60 tablet 2 chlorhexidine (Peridex) 0.12 % solution Use 15 [...] bedtime. Do not crush, chew, or split.. rosuvastatin (Crestor) 10 MG tablet Take 1 [...] Brother Past Medical History: Diagnosis Date Asthma multiple admits Cataract senile right eye GERD [...] GUIDED TRANSVAGINAL TRANSRECTAL FLUID DRAIN 07/17/[address] Kim EGD 05/16/2024 With Biopsy and Dilation of Esophagus HYSTERECTOMY 1996 SHOULDER ADHESION RELEASE Right 06/06/2017 SHOULDER ARTHROSCOPY Right 2017 [facility] Visit Vitals BP 122/82 Pulse 93 Resp 16 Ht 5' 1 Wt 155 lb 3.2 oz SpO2 95% BMI 29.32 kg/m Smoking Status Never BSA 1.74 m Review of Systems Constitutional: Negative for chills, fatigue and fever. Respiratory: Negative for cough, shortness of breath and wheezing. Cardiovascular: Negative for chest pain, palpitations and leg swelling. Gastrointestinal: Negative for abdominal pain, constipation, diarrhea, nausea and vomiting. Musculoskeletal: Positive for arthralgias, back pain and gait problem. Skin: Negative for rash. Objective Physical Exam [...] sounds. No wheezing, rhonchi or rales. Abdominal: Tenderness: There is no right CVA tenderness or left CVA tenderness. Musculoskeletal: Lumbar back: Spasms (Right), tenderness (Right lower lumbar paraspinous) and bony tenderness (Lower lumbar and sacrum) present. Decreased range of motion (Limited extension). Negative right straight leg raise test and negative left straight leg raise test. Comments: RLE strength 5-/5, LLE 5/5. Pain with extension of lumbar spine. Skin: General: Skin is warm and dry. Neurological: General: No focal deficit present. Mental Status: She is alert and oriented to person, place, and time. Sensory: Sensation is intact. Deep Tendon Reflexes: Reflex Scores: Patellar reflexes are 2+ on the right side and 2+ on the left side. Psychiatric: Mood and Affect: Mood normal. Behavior: Behavior normal. Assessment/Plan Diagnoses and all orders for this visit: Lumbar strain, initial encounter - predniSONE (Deltasone) 10 MG tablet; Take 1 tablet (10 mg) by mouth 3 (three) times a day for 3 days, THEN 1 tablet (10 mg) 2 (two) times a day for 3 days, THEN 1 tablet (10 mg) Daily for 3 days. Start the above medication as directed. Advised of potential side effects of the steroid. Patient is to take the steroid with food. Do not take any NSAIDs while on Prednisone, Tylenol ok prn. Can continue to take the Cyclobenzaprine prn before bed, cautioned it may cause drowsiness. Encouraged gentle heat to area. Encouraged gentle stretches. Advised patient that if symptoms do not improve imaging may be required for further evaluation. Pt declines PT referral. The patient was seen today in follow up of recent hospital ER visit. All available hospital records/labs/diagnostics were reviewed and discussed with the patient. ER discharge meds were reviewed. Any changes to plan are as noted. Follow up if symptoms worsen or fail to improve. 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 Status: moderate, chronic, stable assessment Pseudophakia impression Pseudophakia: Z96.1. Bilateral. Condition: established, stable [facility] Work Phone: 1(920) 544-976603-27-2025 History of Present illness Narrative* Encounter Date [...] for evaluation of RP in both eyes. [facility] Work Phone: [phone]) [phone] Instructions* Date Instruction Additional Infor linnea Impression/Plan [...] retinal dystrophy Return in 1 year wit Will Irby [...] to Pseud ophakia Return in 1 year [facility] Will Irby MD for follow up and [...] cataract, bilateral - Return in 1 year karen Irby for follow up exam with OCT. [...] Patient has been seen previously at the [facility]; she stated they told her they [...] pigmentosa - Return in [address] Irby for follow up exam with OCT. [...] up. Appropriate follow up with primary eye hospice home care coordinator was recommended. Related to PVD (Vitreous degeneration) [...] future. Offered patient a referral to the [facility]/Dr. Robles (who specializes in inherited retinal [...] follow up exam. Related to Retinitis pigmentosa [facility] Work Phone: 1(692) 989-625202-17-2025 History of Present illness Narrative* CHAN Elizondo [...] GUIDED TRANSVAGINAL TRANSRECTAL FLUID DRAIN 07/17/[address] Kim EGD 05/16/2024 With Biopsy and [...] for Medication Follow Up. documented in this [facility]02-05-2025 Telephone encounter Note* Telephone Encounter - Emilia Flores LPN - 05/29/2024 8:45 AM EST Sent. [id number] Miscellaneous Notes* Telephone Encounter - Emilia Flores LPN - 05/29/2024 8:45 AM EST Sent. * Telephone Encounter - Madie Monroy - 05/29/2024 8:28 AM EST potassium chloride CR (K-Tab) 20 MEQ ER tablet Patient is wondering [facility] [place] She said she struggles with low potassium sometimes and she thinks that is what is happening now to her. She feels light-headed, dizzy, like she might pass out. documented in this [facility]02-05-2025 Telephone encounter Note* Telephone Encounter - Madie Monroy - 05/29/2024 8:28 AM EST potassium chloride CR (K-Tab) 20 MEQ ER tablet Patient is wondering if [facility] [place] She said she struggles with low potassium sometimes and she thinks that is what is happening now to her. She feels light-headed, dizzy, like she might pass out. [facility] [id number] [place] [address] Gastroenterology H&P Signed Patient: Анна Amaya V MR#: [id number] : 1960 Acct:[id number] Age/Sex: 63 / F Adm Date: Loc: Room: Type: [facility] Attending Dr: Sivakumar Juárez MD [...] Sivakumar Juárez MD 05/16/241325 Signed By: 05/16/24 1326 [facility]01-23-2025 [place] [address] EGD Procedure Note Signed Patient: Анна Amaya V MR#: [id number] : 1960 Acct:[id number] Age/Sex: 63 / F Adm Date: 5 Loc: Room: Type: [facility] Attending Dr: Sivakumar Juárez MD [...] Juárez MD 05/16/24 1326 Signed By: 05/16/24 2827 [facility]12-10-2024 History of Present illness Narrative * CHAN [...] Brother Past Medical History: Diagnosis Date Asthma ([facility]) multiple admits Cataract senile right eye GERD [...] for Medicare Wellness Visit. documented in this [facility]09-24-2024 Telephone encounter Note* Telephone Encounter - CHAN Elizondo - 01/16/2024 10:37 AM EDT Called and informed pt that her potassium was very low. Needs to restart the supplement today. She voices understanding, updated Rx sent in for pt. Advised pt will need to recheck in one week. Lab order will be sent to [facility]. [id number] Miscellaneous Notes* Telephone Encounter - CHAN Elizondo - 01/16/2024 10:37 AM EDT Called and informed pt that her potassium was very low. Needs to restart the supplement today. She voices understanding, updated Rx sent in for pt. Advised pt will need to recheck in one week. Lab order will be sent to [facility]. * Telephone Encounter - Rosa Warren MA - 01/16/2024 10:12 AM EDT Critical lab potassium is 2.8 from [facility] documented in this [facility]09-24-2024 Telephone encounter Note* Telephone Encounter - Rosa Warren MA - 01/16/2024 10:12 AM EDT Critical lab potassium is 2.8 from [id number] History of Present illness Narrative* CHAN Elizondo [...] neck no acute fracture after fall Hypertension ([facility]/HCC) 09/2021 Numbness 12/2022 Pyriformis syndrome Rotator cuff [...] MD as PCP - General (Family Medicine) Karolyn Rangel NP as PCP - Selene IVORY [...] Do you have a medical power of trademark attorney?: (P) No Objective : BP 116/72 [...] a living will and durable power of trademark attorney for healthcare. We discussed telling garcia [...] (CMS/HCC) The patient is seeing a medical advisor for this condition, treatment is deferred to [...] pigmentosa The patient is seeing a medical advisor for this condition, treatment is deferred to [...] Chronic cough Cough documented in this encounter [facility] HealthcareEvaluation note* Diagnosis Medicare annual wellness [...] of right sacroiliac joint (CMS/HCC) Acquired hypothyroidism ([facility]/HCC) Unspecified hypothyroidism Overweight (BMI 25.0-29.9) Overweight Thrombocytosis Essential thrombocythemia Elevated LDL cholesterol level (CMS/HCC) Generalized anxiety disorder (CMS/HCC) Generalized anxiety disorder History of total hysterectomy Hypokalemia Hypopotassemia Retinitis pigmentosa Pigmentary retinal dystrophy Seasonal allergies Allergic rhinitis, cause unspecified Other problems related to lifestyle Atherosclerosis of aorta (CMS/HCC) Atherosclerosis of aorta documented in this encounter [facility] HealthcareEvaluation note* Diagnosis Hypokalemia- Primary Hypopotassemia documented in this encounter [facility] HealthcareEvaluation noteNo assessment information availableHolzer [facility] Work Phone: Evaluation note* Diagnosis Hypokalemia Hypopotassemia documented in this encounter [facility] HealthcareEvaluation note* Diagnosis Near syncope- Primary [...] 3a (HCC) (CMS/HCC) documented in this encounter [facility] HealthcareEvaluation note* Diagnosis Lumbar strain, initial encounter- Primary Rheumatoid arthritis, unspecified documented in this encounter [facility] and [facility] Author Sivakumar Juárez [facility] Note Date/Time May 16, 2024 2 :47pm [facility] EN[facility] [address] [place] [address] Gastroenterology H&P Signed Patient: Анна Amaya V MR#: [id number] : 1960 Acct:[id number] Age/Sex: 63 / F Adm Date: 5 Loc: Room: Type: [facility] Attending Dr: Sivakumar Juárez MD [...] Sivakumar Juárez MD 05/16/24 1326 Signed By: <Electronically signed by Sivakumar Juárez MD> 05/16/24 1326 [facility] Work Phone: History and physical note* Clinical Note Date No Information [facility] Work Phone: Progress note* Clinical Note Date No Information [facility] Work Phone: Reason for referral (narrative)* Reason For Referral No Information [facility] Work Phone: Summary Purpose Family History No Family History Records Found Relationship Condition Age at Onset Recorded Date/T anil father Unknown Motor vehicle accident Unknown mother Hypertension Unknown Unknown Disorder of kidney Unknown Family Member Type Diagnosis Age At Onset Problem (finding) Family history of blind ness Problem (finding) Family history of catar act Problem (finding) Family history of hyper tension Problem Family history o f retinal pigmentosa-mother/grandmother Advance Directives No Advanced Directives Records Found Advance Directive Response Recorded Date/ Time Advance Directives No May 09, 2019 12:12pm Directive Yes / No Effective Date File Name No Information Chief Complaint and Reason for Visit Chief Complaint Admit Date Dysphagia May 16, 2024 1 1:20am Dysphagia May 16, 2024 1 :26pm Additional Source Comments INFORMATION SOURCE (unrecogn ized section and content) DATE CREATED AUTHOR 09/10/2021 [facility] Me dical Specialist DATE CREATED AUTHOR AUTHOR'S ORGANIZ ATION 10/23/2021 [facility] DATE CREATED AUTHOR AUTHOR'S ORGANIZ ATION 07/20/2024 [facility] DATE CREATED AUTHOR AUTHOR'S ORGANIZ ATION 08/21/2024 [facility] dical Specialists EPIC DATE CREATED AUTHOR AUTHOR'S ORGANIZ ATION 08/22/2024 [facility] ys[facility] Care Teams (unrecognized sec tion and content) Electrical Research Engineer Relationship Specialty Start Date End Date Erika Zee MD [address] [facility] [address] [place] [address] PCP - General Family Medicine 11/15/22 Karolyn Rangel NP [address] [facility] [address] [place] [address] PCP - Selene IVORY 10/23/23 Electrical Research Engineer Relationship Specialty Start Date End Date Erika Zee MD [address] [facility] [address] [place] [address] PCP - General Family Medicine 11/15/22 Dorita Dye, NON EMERGENCY SERVICES AMBULANCE DRIVER [address], [address] [address] PCP - Selene IVORY 12/24/23 Electrical Research Engineer Relationship Specialty Start Date End Date Erika Zee MD [address] [facility] [address] [place] [address] PCP - General Family Medicine 11/15/22 Dorita Dye, NON EMERGENCY SERVICES AMBULANCE DRIVER [address], [facility] [address] [place] [address] PCP - Selene IVORY 12/24/23 Electrical Research Engineer Relationship Specialty Start Date End Date Erika Zee MD [address] [facility] [address] [place] [address] PCP - General Family Medicine 11/15/22 Karolyn Rangel, NON EMERGENCY SERVICES AMBULANCE DRIVER [address] [facility] [address] [place] [address] PCP - Selene IVORY 10/23/23 Electrical Research Engineer Relationship Specialty Start Date End Date Erika Zee MD [address] [facility] [address] [place] [address] PCP - General Family Medicine 11/15/22 Karolyn Rangel, NON EMERGENCY SERVICES AMBULANCE DRIVER [address] [facility] [place] [address] PCP - Selene IVORY 10/23/23 Electrical Research Engineer Relationship Specialty Start Date End Date Erika Zee MD [address] [facility] [address] [place] [address] PCP - General Family Medicine 11/15/22 Karolyn Rangel, NON EMERGENCY SERVICES AMBULANCE DRIVER [address] [facility] [address] [place] [address] PCP - Selene IVORY 10/23/23 Electrical Research Engineer Relationship Specialty Start Date End Date Erika Zee MD [address] [place] [address] PCP - General Family Medicine 11/15/22 Karolyn Rangel, NON EMERGENCY SERVICES AMBULANCE DRIVER [address] [place] [address] PCP - Selene IVORY 10/23/23 Team Status: [...] Other Provider Active Start: May 16, 2024 Electrical Research Engineer Relationship Specialty Start Date End Date Erika Zee MD [address] [facility] [address] [place] [address] PCP - General Family Medicine 11/15/22MonDiegoBina bedolla LPN [address] [place] [address] Licensed Practical Nurse Family Medicine 04/10/24 Electrical Research Engineer Relationship Specialty Start Date End Date Erika Zee MD [address] [facility] [place] [address] PCP - General Family Medicine 11/15/22 Rosa Edwards, RN Licensed Practical Nurse Family Medicine 05/31/24 Electrical Research Engineer Relationship Specialty Start Date End Date Erika Zee MD [address] [place] [address] PCP - General Family Medicine 11/15/22 Rosa Edwards, JEREMY Licensed Practical Nurse Family Medicine 05/31/24 Electrical Research Engineer Relationship Specialty Start Date End Date Erika Zee MD [address] [facility] [address] [place] [address] PCP - General Family Medicine 11/15/22 Rosa Edwards RN Licensed Practical Nurse Family Medicine 05/31/24 Name Effective Dates (start - stop) Status Members No Information Electrical Research Engineer Relationship Specialty Start Date End Date Erika Zee MD [address] [facility] [address] [place] [address] PCP - General Family Medicine 11/15/22 Humera Fontenot LPN 07/12/24 Electrical Research Engineer Relationship Specialty Start Date End Date Erika Zee MD [address] [facility] [address] [place] [address] PCP - General Family Medicine 11/15/22 Humera Fontenot LPN 07/12/24 Reason for Visit (unrecogniz ed section and [...] BE BASED ON THE PRIMARY CLINICAL RECORDS. [facility]. provides no warranty or guarantee of the accuracy or completeness of information in this document.
--- OUTSIDE RECORDS SUMMARY | 2024-11-06 06:47 | XMS_ITS | Encounter Summary ---
Author Organization [facility] Healthcare Address [address] [address] Care Team Providers Care Cyber Ops Planner Name Role Phone Erika Gaviria MD Primary Care Provider [phone] Humera Fontenot LPN Unavailable Encounter Details Date Type Department Care Team (Late st Contact Info) Description 08/09/2024 Abstract [facility] POP[facility]ATION [facility] [address] [place] [id number] Humera Fontenot LPN [address] Mehran [address] [place] [address] Social History Tobacco Use Types Packs/Day Years [...] week 01/06/2024 How often do you attend chur or jehovah's witness services? More than 4 times per year 01/06/2024 Do you belong to any clubs o r organizations such as holiness groups, unions, fraternal or athletic groups, or [...] Recorded Patient Health Questionnaire-2 Score 1 01/06/2024 [facility] of Occupat ional Health - Occupational Stress [...] place to sleep or slept in a jail (including now)? No 11/09/2022 Housing Stability Vital Sign Answer Michael e Recorded In the last 12 months, was t here a time when you were not able to pay the mortgage or rent on time? No 04/12/2024 In the past 12 months, how m any times have you moved where you were living? 0 04/12/2024 At any time in the past 12 m [facility], were you homeless or living in a jail (including now)? No 04/12/2024 Comments Unknown Sex and Gender Information Value Date Recorded Sex Assigned at Not on file Legal Sex Female 8:00 PM EDT Gender Identity Not on file Sexual Orientation Not on file documented as of this encounter Plan of Treatment Upcoming Encounters Date Type Department Care Team (Late st Contact Info) Description 11/12/2024 8:00 AM EDT Office Visit [facility] 112 [facility] 110 [place] [address] Franny Salazar PA [address] [facility] 110 [place] [address] documented as of this encounter Visit Diagnoses Not on filedocumented in this encounter Additional Health Concerns Assessment Noted Time PHQ-9 Depression Total Score: 5 01/06/20 24 5:38 AM EDT documented as of this encounter Care Teams Cyber Ops Planner Relationship Specialty Start Date End Date Erika Gaviria MD [address] [address] PCP - General Family Medicine 11/15/22 Humera Fontenot LPN [address] [address] 07/12/24 documented as of this encounter
--- OUTSIDE RECORDS SUMMARY | 2024-11-06 06:47 | XMS_ITS | Encounter Summary ---
Author Organization [facility] Address [address] [facility] [place] [address] Care Team Providers Care Making Machine Catcher Name Role Phone Erika Gaviria MD Primary Care Provider Rosa Edwards RN Unavailable Humera Fontenot LPN Unavailable Encounter Details Date Type Department Care Team (Late st Contact Info) Description 06/14/2024 Abstract [facility] [address] [facility] 110 [place] [address] Erika Gaviria MD 112 [facility] 110 [place] [address] Social History Tobacco Use Types Packs/Day Years [...] How often do you attend chur or yarsanism services? More than 4 times per year 01/06/2024 Do you belong to any clubs o r organizations such as sikhism groups, unions, fraternal or athletic groups, or [...] Recorded Patient Health Questionnaire-2 Score 1 01/06/2024 [facility] of Occupat ional Health - Occupational [...] place to sleep or slept in a mcfp (including now)? No 11/09/2022 Housing Stability Vital [...] time in the past 12 m [facility], were you homeless or living in a mcfp (including now)? No 04/12/2024 Comments Unknown Sex [...] Visit [facility] [place] [address] [facility] 110 [place] [address] Franny Salazar PA [address] [facility] 110 [place] [address] documented as of this encounter Visit Diagnoses Not on filedocumented in this encounter Additional Health Concerns Assessment Noted Time PHQ-9 Depression Total Score: 5 01/06/20 24 5:38 AM EDT documented as of this encounter Care Teams Making Machine Catcher Relationship Specialty Start Date End Date Erika Gaviria MD [address] [facility] 110 [place] [address] PCP - General Family Medicine 11/15/22 Rosa Edwards, JEREMY [address] [place] [address] Licensed Practical Nurse Family Medicine 05/31/2407/12 Humera Fontenot LPN 112 [facility] 110 [place] [address] 07/12/24 documented as of this encounter
--- OUTSIDE RECORDS SUMMARY | 2024-11-06 06:47 | XMS_ITS | Encounter Summary ---
Author Organization [facility] Address [address] [facility] [place] [address] Care Team Providers Care Assistant Manager Of Operations Name Role Phone Erika Gaviria MD Primary Care Provider [phone] Rosa Edwards RN Unavailable [phone] Humera Fontenot LPN Unavailable Encounter Details Date Type Department Care Team (Late st Contact Info) Description 06/17/2024 Abstract [facility] [address] [facility] 110 [place] [address] Erika Gaviria MD 112 [facility] 110 [place] [address] Social History Tobacco Use Types Packs/Day Years [...] How often do you attend chur or methodist services? More than 4 times per year 01/06/2024 Do you belong to any clubs o r organizations such as oriental orthodox groups, unions, fraternal or athletic groups, or [...] Patient Health Questionnaire-2 Score 1 01/06/2024 [facility] of Occupat ional Health - Occupational [...] any time in the past 12 m [facility], were you homeless or living in a [...] Visit [facility] [address] [facility] 110 [place] [address] Franny Salazar PA [address] [facility] 110 [place] [address] documented as of this encounter Visit Diagnoses Not on filedocumented in this encounter Additional Health Concerns Assessment Noted Time PHQ-9 Depression Total Score: 5 01/06/20 24 5:38 AM EDT documented as of this encounter Care Teams Assistant Manager Of Operations Relationship Specialty Start Date End Date Erika Gaviria MD 112 [facility] 110 [place] [address] PCP - General Family Medicine 11/15/22 Rosa Edwards, JEREMY [address] [place] [address] Licensed Practical Nurse Family Medicine 05/31/2407/12 Humera Fontenot LPN 112 [facility] 110 [place] [address] 07/12/24 documented as of this encounter
--- OUTSIDE RECORDS SUMMARY | 2024-11-06 06:48 | XMS_ITS | Encounter Summary ---
Author Organization [facility] Address [address] [facility] [place] [address] Care Team Providers Care Patient Attendant Name Role Phone Erika Zee MD Primary Care Provider Karolyn Rangel SECURITY TEAM LEAD Unavailable [phone] Dorita Dye SECURITY TEAM LEAD Unavailable Naomie Johnson RN Unavailable [phone] Monday, Bina INGOT PASSER Unavailable [phone] Rosa Edwards RN Unavailable [phone] FontenotHumera INGOT PASSER Unavailable Encounter Details Date Type Department Care Team (Late st Contact Info) Description 11/13/2023 Clinisync Result Encounter [facility] External Department Unsolicited Dorita Dye, SECURITY TEAM LEAD [address] , [address] [address] Social History Tobacco Use Types Packs/Day Years [...] week 11/09/2022 How often do you attend chur or caodaism services? More than 4 times per year 11/09/2022 Do you belong to any clubs o r organizations such as congregational groups, unions, fraternal or athletic groups, or [...] and heating? Not hard at all 11/09/2022 [facility] [place] of Occupat ional Health - Occupational Stress [...] place to sleep or slept in a mcc (including now)? No 11/09/2022 Comments Unknown Sex [...] Visit [facility] [address] [facility] 110 [place] [address] Franny [place] PA [address] [facility] 110 [place] [address] documented as of this encounter Procedures Procedure Name Priority Date/Time Associated Diagnosis Comments MR LUMBAR SPINE WO CON 11/13/2023 8:09 AM EDT documented in this encounter Results * MR LUMBAR SPINE WO CON (11/13/2023 8:09 AM EDT) Anatomical Region Laterality Modality Other 11/13/2023 8:09 AM EDT Narrative 11/13/2023 8:11 AM EDT The [address] [address] Magnetic Resonance Report Signed Patient: АННА AMAYA V MR#: [id number] : 1960 Acct:[id number] Age/Sex: 63 / F ADM Date: 11/10/23 Loc: MRI Attending Dr: Dorita Dye SECURITY TEAM LEAD Ordering Physician: Dorita Dye NP Date of Service: 11/10/23 Procedure(s): MR lumbar spine wo con Accession Number(s): [id number] cc: ERIKA ZEE ; Dorita Dye NP The [address] [address] Patient Name: АННА AMAYA MRN: [facility]:[id number] date: 1960 Sex: F Assigned Patient Location: MRI Current Patient Location: Accession/Order Number: [id number] Exam Date: 11/10/2023 07:05 Report Date: 11/13/2023 08:09 At the request of: DORITA DYE Procedure: MR lumbar spine wo con EXAMINATION: MR lumbar spine wo con HISTORY: inflammation of right SI joint M46.1 COMPARISON: No relevant comparison available. TECHNIQUE: A variety of imaging planes and parameters were utilized for visualization of suspected pathology. FINDINGS: For the purposes of numbering, sagittal T2 image # 8 extends from the T10 vertebral body superiorly to the S4 level inferiorly. PARASPINAL AREA: Normal with no visible mass. BONES: Normal alignment of the lumbar vertebral bodies with no acute fracture, dislocation or bone edema CORD/CAUDA EQUINA: Normal caliber, contour, and signal intensity. DISC LEVELS: 12-L1: No significant disc/facet abnormality, spinal stenosis, or foraminal stenosis. L1-L2: No significant disc/facet abnormality, spinal stenosis, or foraminal stenosis. L2-L3: Early degenerative disc disease is present without focal protrusion or neural impingement. L3-L4: No significant disc/facet abnormality, spinal stenosis, or foraminal stenosis. L4-L5: Early degenerative disc disease is present without focal protrusion or neural impingement. L5-S1: Early degenerative disc disease is present without focal protrusion or neural impingement. MR/MR lumbar spine wo con IMPRESSION: Mild discogenic changes with no no disc bulge or herniation, now significant central or foraminal stenosis Electronically authenticated by: KINGSLEY BURNETTE Date: 11/13/2023 08:09 Dictated By: Kingsley Burnette M.D. Signed By: 11/13/23810 DD/ 8 TD/TT: Utility Appraiser: Procedure Note Radiology, Radiologist, MD - 11/13/2023 [place] [address] Magnetic Resonance Report Signed Patient: АННА AMAYA VMR#: [id number] : 1960cct:[id number] Age/Sex: 63 / FADM Date: 11/10/23 Loc: MRI Attending Dr: Dorita Dye SECURITY TEAM LEAD Ordering Physician: Dorita Dye NP Date of Service: 11/10/23 Procedure(s): MR lumbar spine wo con Accession Number(s): [id number] cc: ERIKA ZEE ; Dorita Dye NP The [place] [address] Patient Name: АННА AMAYA MRN: [facility]:[id number] date: 1960 Sex: F Assigned Patient Location: MRI Current Patient Location: Accession/Order Number: [id number] Exam Date: 11/10/2023 07:05 Report Date: 11/13/2023 08:09 At the request of: DORITA DYE Procedure: MR lumbar spine wo con EXAMINATION: MR lumbar spine wo con HISTORY: inflammation of right SI joint M46.1 COMPARISON: No relevant comparison available. TECHNIQUE: A variety of imaging planes and parameters were utilized for visualization of suspected pathology. FINDINGS: For the purposes of numbering, sagittal T2 image # 8 extends from the T10 vertebral body superiorly to the S4 level inferiorly. PARASPINAL AREA: Normal with no visible mass. BONES: Normal alignment of the lumbar vertebral bodies with no acutefracture, dislocation or bone edema CORD/CAUDA EQUINA: Normal caliber, contour, and signal intensity. DISC LEVELS: 12-L1: No significant disc/facet abnormality, spinal stenosis, orforaminal stenosis. L1-L2: No significant disc/facet abnormality, spinal stenosis, orforaminal stenosis. L2-L3: Early degenerative disc disease is present without focal protrusionor neural impingement. L3-L4: No significant disc/facet abnormality, spinal stenosis, orforaminal stenosis. L4-L5: Early degenerative disc disease is present without focal protrusionor neural impingement. L5-S1: Early degenerative disc disease is present without focal protrusionor neural impingement. MR/MR lumbar spine wo con IMPRESSION: Mild discogenic changes with no no disc bulge or herniation, nowsignificant central or foraminal stenosis Electronically authenticated by: KINGSLEY BURNETTE Date: 11/13/2023 08:09 Dictated By: Kingsley Burnette M.D. Signed By:11/13/23810 DD/ 8 TD/TT: Utility Appraiser: Dorita Dye SECURITY TEAM LEAD [facility] Final R esult documented in this encounter Visit Diagnoses Not on filedocumented in this encounter Care Teams Patient Attendant Relationship Specialty Start Date End Date Erika Zee MD 112 [facility] 110 [place] [address] PCP - General Family Medicine 11/15/22 Karolyn Rangel NP 112 [facility] 110 [place] [address] PCP - Selene IVORY 10/23/23 12/23/23 Dorita Dye NP [address], [facility] 111 [place] [address] PCP - Selene IVORY 12/24/23 03/23/24 Naomie Johnson, JEREMY [address] [place] [address] Registered Nurse Family Medicine 04/04/24 04/10/24MondayBina LPN [address] [facility] 110 [place] [address] Licensed Practical Nurse Family Medicine 04/10/24 Rosa Edwards, JEREMY [address] [place] [address] Licensed Practical Nurse Family Medicine 05/31/2407/12 Humera Fontenot LPN [address] [facility] 110 [place] [address] 07/12/24 documented as of this encounter
--- OUTSIDE RECORDS SUMMARY | 2024-11-06 06:48 | XMS_ITS | Encounter Summary ---
Author Organization [facility] Address [address] [place] [address] Care Team Providers Care Calf Skinner Name Role Phone Erika Gaviria MD Primary Care Provider [phone] Monday, Bina CAR SANDER Unavailable [phone] Rosa Edwards RN Unavailable [phone] Fontenot, Humera CAR SANDER Unavailable Encounter Details Date Type Department Care Team (Late st Contact Info) Description 05/23/2024 Abstract [facility] 112 [facility] 110 [place] [address] Erika Gaviria MD 112 [facility] 110 [place] [address] Social History Tobacco Use Types Packs/Day Years [...] week 01/06/2024 How often do you attend [facility] or restoration services? More than 4 times per year 01/06/2024 Do you belong to any clubs o r organizations such as jainism groups, unions, fraternal or athletic groups, or [...] Recorded Patient Health Questionnaire-2 Score 1 01/06/2024 [facility] of Occupat ional Health - Occupational [...] place to sleep or slept in a group home (including now)? No 11/09/2022 Housing Stability Vital Sign Answer Michael e Recorded In the last 12 months, was t here a time when you were not able to pay the mortgage or rent on time? No 04/12/2024 In the past 12 months, how m any times have you moved where you were living? 0 04/12/2024 At any time in the past 12 m [facility], were you homeless or living in a group home (including now)? No 04/12/2024 Comments Unknown Sex and Gender Information Value Date Recorded Sex Assigned at Not on file Legal Sex Female 8:00 PM EDT Gender Identity Not on file Sexual Orientation Not on file documented as of this encounter Plan of Treatment Upcoming Encounters Date Type Department Care Team (Late st Contact Info) Description 11/12/2024 8:00 AM EDT Office Visit [facility] [address] [facility] 110 [place] [address] Franny [place] PA [address] [facility] 110 [place] [address] documented as of this encounter Visit Diagnoses Not on filedocumented in this encounter Additional Health Concerns Assessment Noted Time PHQ-9 Depression Total Score: 5 01/06/20 24 5:38 AM EDT documented as of this encounter Care Teams Calf Skinner Relationship Specialty Start Date End Date Erika Gaviria MD [address] [place] [address] PCP - General Family Medicine 11/15/22MondayBina LPN [address] [facility] 110 [place] [address] Licensed Practical Nurse Family Medicine 04/10/24 Rosa Edwards, RN [address] [place] [address] Licensed Practical Nurse Family Medicine 05/31/2407/12 Humera Fontenot LPN 112 [facility] 110 [place] [address] 07/12/24 documented as of this encounter
--- OUTSIDE RECORDS SUMMARY | 2024-11-06 06:48 | XMS_ITS | Encounter Summary ---
Author Organization [facility] Address [address] [facility] [place] [address] Care Team Providers Care Pourer Off Name Role Phone Erika Gaviria MD Primary Care Provider Erika Gaviria MD Unavailable Erika Gaviria MD Unavailable Karolyn Rangel FUR BLENDER Unavailable Kate Slater FUR BLENDER Unavailable Naomie Johnson RN Unavailable Monday, Bina ASSESSMENT SPECIALIST Unavailable [phone] Rosa Edwards RN Unavailable Fontenot Humera ASSESSMENT SPECIALIST Unavailable Encounter Details Date Type Department Care Team (Late st Contact Info) Description 08/15/2023 Abstract [facility] 112 [facility] 110 [place] [address] Erika Gaviria MD 112 [facility] 110 [place] [address] Social History Tobacco Use Types Packs/Day Years [...] 11/09/2022 How often do you attend chur ch or rastafarian services? More than 4 times per year 11/09/2022 Do you belong to any clubs o r organizations such as scientologist groups, unions, fraternal or athletic groups, or [...] and heating? Not hard at all 11/09/2022 [facility] [place] of Occupat ional Health - Occupational Stress [...] 11/12/2024 8:00 AM EDT Office Visit [facility] [address] [facility] 110 [place] [address] Franny [place] PA [address] [facility] 110 [place] [address] documented as of this encounter Visit Diagnoses Not on filedocumented in this encounter Care Teams Pourer Off Relationship Specialty Start Date End Date Erika Gaviria MD [address] [facility] 110 [place] [address] PCP - General Family Medicine 11/15/22 Erika Gaviria MD [address] [facility] 110 [place] [address] PCP - Selene IVORY 04/24/23 10/22/23 Erika Gaviria MD [address] [facility] 110 [place] [address] PCP - S [facility] 07/24/23 10/22/23 Karolyn Rangel NP [address] [facility] 110 [place] [address] PCP - [place] [facility]ACHOR[facility] 10/23/23 12/23/23 Kate Slaetr NP [address], [facility] 111 [place] [address] PCP - Selene IVORY 12/24/23 03/23/24 Naomie Johnson, JEREMY [address] [facility] 230 [place] [address] Registered Nurse Family Medicine 04/04/24 04/10/24MonDiegoBina bedolla LPN [address] [facility] 110 [place] [address] Licensed Practical Nurse Family Medicine 04/10/24 Rosa Edwards, JEREMY [address] [place] [address] Licensed Practical Nurse Family Medicine 05/31/2407/12 Humera Fontenot LPN [address] [facility] 110 [place] [address] 07/12/24 documented as of this encounter
--- OUTSIDE RECORDS SUMMARY | 2024-11-06 06:48 | XMS_ITS | Patient Health Record ---
Author Organization [facility] Address [address] [place] [id number] Care Team Providers Care Senior Escrow Officer Name Role Phone Shanna Lloyd Unavailable [phone] Xenia Rascon Unavailable [phone] Allergies No Known Allergies Reason For Referral No Information Medications Medication SIG (Take, Route, Frequency, Duration) Notes Start Date End Date Status Levothyroxine Sodium Active hydroCHLOROthiazide 25 MG take 1 tablet by mouth every morning Oral for 90 Active Pantoprazole Sodium 40 MG TAKE 1 tablet Orally daily Oral for 30 Active Ventolin HFA 108 (90 Base) MCG/ACT inhale 2 puffs by mouth INTO THE LUNGS every 4 hours if needed Inhalation for 16 Active Montelukast Sodium 10 MG take 1 tablet b y mouth every evening Oral for 30 Active Rosuvastatin Calcium 10 MG Oral for 30 Not-Taking Social History Tobacco Use: Social History Observation Description Date Details (start date - stop date) Never Smoker NA - NA Sex Assigned At : Social History Observation Description Sex Assigned At Female Tobacco Use/Smoking Question Answer Notes Tobacco use: nonsmoker Problems Problem Type SNOMED Code ICD Code Onset Dates Problem Status W/U Status Risk Notes Problem [id number] BMI 28.0-28.9,ad ult (Z68.28) Active confirmed Vital Signs Heart Rate 92 /min 03/11/2024 Blood pressure diastolic 84 mm Hg 03/11/2024 Weight-kg 70.31 kg 03/11/2024 Height 62 in 03/11/2024 Blood pressure systolic 123 mm Hg 03/11/2024 Weight 155 lbs 03/11/2024 BMI 28.35 kg/m2 03/11/2024 Encounters Encounter Location Date Provider Diagnosis [facility] [address] [place] [id number] 12/11/2023 Shanna Lloyd Dental caries into dentine K02.62 and Encounter for screening for dental disorders Z13.84 [facility] [address] [place], [place] [id number] 03/11/2024 Xenia Rascon Encounter for scre ening for dental disorders Z13.84 and Encounter for dental examination and cleaning without abnormal findings Z01.20 Assessments Encounter Date Diagnosis (ICD Code) Assessment Notes Treatment Notes Treatment Clinical Notes Section Notes 03/11/2024 Encounter for screening for dental disorders (ICD-10 - Z13.84) 12/11/2023 Dental caries into dentine (ICD-10 - K02.62) 03/11/2024 Encounter for dental examination and cleaning without abnormal findings (ICD-10 - Z01.20) 12/11/2023 Encounter for screening for dental disorders (ICD-10 - Z13.84) Plan Of Treatment No Information Insurance Providers Payer Name Payer Address Payer Phone Subscriber Number Group Number Insured Name Patient Relationship to Insured Coverage Start Date Coverage End Date [employer] [address] [address] [place] [address] [id number] Анна Amaya Self - patient is the insured 4 DMedicaid Medicare Crossover [address] [place] [address] [id number] Анна Amaya Self - patient is the insured 3
--- OUTSIDE RECORDS SUMMARY | 2024-11-06 06:48 | XMS_ITS | Encounter Summary ---
Author Organization [facility] Address [address] [facility] [place] [address] Care Team Providers Care Director Of Pulmonary Unit Name Role Phone Erika Gaviria MD Primary Care Provider Erika Gaviria MD Unavailable Erika Gaviria MD Unavailable Karolyn Rangel COMBER OPERATOR Unavailable Kate Slater COMBER OPERATOR Unavailable Naomie Johnson RN Unavailable [phone] Monday, Bina FARMWORKER RICE Unavailable [phone] Rosa Edwards RN Unavailable Fontenot Humera FARMWORKER RICE Unavailable Encounter Details Date Type Department Care Team (Late st Contact Info) Description 08/14/2023 Orders Only [facility] [address] [place] [address] Unallocated, Noms Provider, [address] [place] [address] Social History Tobacco Use Types Packs/Day Years [...] How often do you attend chur or baptism services? More than 4 times per year 11/09/2022 Do you belong to any clubs o r organizations such as mormon groups, unions, fraternal or athletic groups, or [...] and heating? Not hard at all 11/09/2022 [facility] [place] of Occupat ional Health - Occupational Stress [...] place to sleep or slept in a penitentiary (including now)? No 11/09/2022 Comments Unknown Sex and Gender Information Value Date Recorded Sex Assigned at Not on file Legal Sex Female 8:00 PM EDT Gender Identity Not on file Sexual Orientation Not on file documented as of this encounter Plan of Treatment Upcoming Encounters Date Type Department Care Team (Late st Contact Info) Description 11/12/2024 8:00 AM EDT Office Visit [facility] [address] [facility] 110 [place] [address] Franny Salazar PA [address] [facility] 110 [place] [address] documented as of this encounter Procedures Procedure Name Priority Date/Time Associated Diagnosis Comments ELECTROCARDIOGRAM REPORT Routine 024 1:54 PM EDT documented in this encounter Results * Electrocardiogram Report (08/12/2023 1:54 PM EDT) us Noms Provider Unallocated MD IN CLINIC/BEDSIDE O RDERABLES Final Result documented in this encounter Visit Diagnoses Not on filedocumented in this encounter Care Teams Director Of Pulmonary Unit Relationship Specialty Start Date End Date Erika Gaviria MD [address] [place] [address] PCP - General Family Medicine 11/15/22 Erika Gaviria MD [address] [place] [address] PCP - Selene IVORY 04/24/23 10/22/23 Erika Gaviria MD [address] [place] [address] PCP - [facility] 07/24/23 10/22/23 Karolyn Rangel, COMBER OPERATOR [address] [place] [address] PCP - Sel[facility] IV[facility] 10/23/23 12/23/23 Kate Slater, COMBER OPERATOR [address], [address] [place] [address] PCP - Selene IVORY 12/24/23 03/23/24 Naomie Johnson, JEREMY [address] [facility] 230 [place] [address] Registered Nurse Family Medicine 04/04/24 04/10/24MondayBina LPN [address] [place] [address] Licensed Practical Nurse Family Medicine 04/10/24 Rosa Edwards RN [address] [place] [address] Licensed Practical Nurse Family Medicine 05/31/2407/12 Humera Fontenot LPN [address] [address] 07/12/24 documented as of this encounter
--- OUTSIDE RECORDS SUMMARY | 2024-11-06 06:48 | XMS_ITS | Encounter Summary ---
Author Organization [facility] Address [address] [facility] [place] [address] Care Team Providers Care Motivational Speaker Name Role Phone Erika Gaviria MD Primary Care Provider Kate Slater FIRE ALARM OPERATOR Unavailable Naomie Johnson RN Unavailable MondayBina DITCH CLEANER Unavailable [phone] Rosa Edwards RN Unavailable [phone] FontenotHuemra DITCH CLEANER Unavailable Encounter Details Date Type Department Care Team (Late st Contact Info) Description 01/25/2024 Abstract [facility] [address] [facility] 110 [place] [id number] Erika Gaviria MD 112 [facility] 110 [place] [address] Social History Tobacco Use Types Packs/Day Years [...] How often do you attend chur or oriental orthodox services? More than 4 times per year 01/06/2024 Do you belong to any clubs o r organizations such as yazidi groups, unions, fraternal or athletic groups, or [...] Recorded Patient Health Questionnaire-2 Score 1 01/06/2024 [facility] [place] of Occupat ional Health - Occupational Stress [...] place to sleep or slept in a long-term (including now)? No 11/09/2022 Housing Stability Vital Sign Answer Michael e Recorded In the last 12 months, was t here a time when you were not able to pay the mortgage or rent on time? No 01/06/2024 Number of Times Moved in the Last Year Not on fi le 01/06/2024 At any time in the past 12 m [facility], were you homeless or living in a long-term (including now)? No 01/06/2024 Comments Unknown Sex and Gender Information Value Date Recorded Sex Assigned at Not on file Legal Sex Female 8:00 PM EDT Gender Identity Not on file Sexual Orientation Not on file documented as of this encounter Plan of Treatment Upcoming Encounters Date Type Department Care Team (Late st Contact Info) Description 11/12/2024 8:00 AM EDT Office Visit [facility] [address] [place] [id number] Franny Salazar PA [address] [place] [address] documented as of this encounter Visit Diagnoses Not on filedocumented in this encounter Additional Health Concerns Assessment Noted Time PHQ-9 Depression Total Score: 5 01/06/20 24 5:38 AM EDT documented as of this encounter Care Teams Motivational Speaker Relationship Specialty Start Date End Date Erika Gaviria MD [address] [place] [address] PCP - General Family Medicine 11/15/22 Kate Slater NP [address], [facility] 111 [place] [address] PCP - Selene IVORY 12/24/23 03/23/24 Naomie Johnson RN [address] [facility] 230 [place] [address] Registered Nurse Family Medicine 04/04/24 04/10/24MondayBina LPN [address] [facility] 110 [place] [address] Licensed Practical Nurse Family Medicine 04/10/24 Rosa [place] RN [address] [place] [address] Licensed Practical Nurse Family Medicine 05/31/2407/12 Humera Fontenot LPN [address] [facility] 110 [place] [address] 07/12/24 documented as of this encounter
--- OUTSIDE RECORDS SUMMARY | 2024-11-06 06:48 | XMS_ITS | Encounter Summary ---
Author Organization [facility] Address [address] [facility] [place] [address] Care Team Providers Care Industrial Psychology Professor Name Role Phone Erika Gaviria MD Primary Care Provider [phone] Erika Gaviria MD Unavailable Erika Gaviria MD Unavailable Karolyn Rangel PRIMING MACHINE OPERATOR Unavailable [phone] Kate Slater PRIMING MACHINE OPERATOR Unavailable Naomie Johnson RN Unavailable Monday, Bina TRACK SUBWAY REPAIR SUPERVISOR Unavailable [phone] Rosa [place] RN Unavailable Fontenot Humera TRACK SUBWAY REPAIR SUPERVISOR Unavailable Encounter Details Date Type Department Care Team (Late st Contact Info) Description 08/15/2023 Abstract [facility] 112 [facility] 110 [place] [address] Erika Gaviria MD 112 [facility] 110 [place] [address] Social History Tobacco Use Types Packs/Day Years [...] often do you attend chur ch or confucianist services? More than 4 times per year 11/09/2022 Do you belong to any clubs o r organizations such as christianity groups, unions, fraternal or athletic groups, or [...] and heating? Not hard at all 11/09/2022 [facility] [place] of Occupat ional Health - Occupational Stress [...] place to sleep or slept in a chcf (including now)? No 11/09/2022 Comments Unknown Sex [...] Office Visit [facility] [address] [facility] 110 [place] [address] Franny Salazar PA [address] [facility] 110 [place] [address] documented as of this encounter Visit Diagnoses Not on filedocumented in this encounter Care Teams Industrial Psychology Professor Relationship Specialty Start Date End Date Erika Gaviria MD [address] [facility] 110 [place] [address] PCP - General Family Medicine 11/15/22 Erika Gaviria MD [address] [facility] 110 [place] [address] PCP - Selene IVORY 04/24/23 10/22/23 Erika Gaviria MD [address] [facility] 110 [place] [address] PCP - [facility] 07/24/23 10/22/23 Karolyn Rangel NP [address] [facility] 110 [place] [address] PCP - [facility] 10/23/23 12/23/23 Kate Slater NP [address], [facility] 111 [place] [address] PCP - Selene IVORY 12/24/23 03/23/24 Naomie Johnson, JEREMY [address] [facility] 230 [place] [address] Registered Nurse Family Medicine 04/04/24 04/10/24MonDiegoBina bedolla LPN [address] [facility] 110 [place] [address] Licensed Practical Nurse Family Medicine 04/10/24 Rosa [place], JEREMY [address] [place] [address] Licensed Practical Nurse Family Medicine 05/31/2407/12 Humera Fontenot LPN [address] [facility] 110 [place] [address] 07/12/24 documented as of this encounter
--- OUTSIDE RECORDS SUMMARY | 2024-11-06 06:48 | XMS_ITS | Encounter Summary ---
Author Organization [facility] Address [address] [facility] [place] [address] Care Team Providers Care Cmo & President Name Role Phone Erika Gaviria MD Primary Care Provider Erika Gaviria MD Unavailable Erika Gaviria MD Unavailable Karolyn Rangel SPORTS BOOK BOARD ATTENDANT Unavailable Kate Slater SPORTS BOOK BOARD ATTENDANT Unavailable Naomie Johnson RN Unavailable Monday, Bina LAN/WAN ENGINEER Unavailable [phone] Rosa Edwards RN Unavailable Fontenot Humera LAN/WAN ENGINEER Unavailable Encounter Details Date Type Department Care Team (Late st Contact Info) Description 08/15/2023 Orders Only [facility] [address] [place] [address] Unallocated, Noms Provider, [address] [place] [address] Social History Tobacco Use Types Packs/Day Years [...] How often do you attend chur or gnosticism services? More than 4 times per year 11/09/2022 Do you belong to any clubs o r organizations such as faith groups, unions, fraternal or athletic groups, or [...] and heating? Not hard at all 11/09/2022 [facility] [place] of Occupat ional Health - Occupational Stress [...] place to sleep or slept in a skilled nursing (including now)? No 11/09/2022 Comments Unknown Sex [...] EDT Office Visit [facility] [address] [facility] 110 [place] [address] Franny Salazar PA [address] [facility] 110 [place] [address] documented as of this encounter Procedures Procedure Name Priority Date/Time Associated Diagnosis Comments SCANNED LABS Routine 08/12/2023 2:44 PM EDT documented in this encounter Results * SCANNED LABS (08/12/2023 2:44 PM EDT) us Noms Provider Unallocated MD LAB CHG PERFORMABLE S Final Result documented in this encounter Visit Diagnoses Not on filedocumented in this encounter Care Teams Cmo & President Relationship Specialty Start Date End Date Erika Gaviria MD [address] [place] [address] PCP - General Family Medicine 11/15/22 Erika Gaviria MD [address] [place] [address] PCP - Selene IVORY 04/24/23 10/22/23 Erika Gaviria MD [address] 110 [place] [address] PCP - S [facility] 07/24/23 10/22/23 Karolyn Rangel, SPORTS BOOK BOARD ATTENDANT [address] [place] [address] PCP - Selene IVORY 10/23/23 12/23/23 Kate Slater, SPORTS BOOK BOARD ATTENDANT [address], [facility] 111 [place] [address] PCP - Selene IVORY 12/24/23 03/23/24 Naomie Johnson, JEREMY [address] [facility] 230 [place] [address] Registered Nurse Family Medicine 04/04/24 04/10/24MondayBina LPN [address] [place] [address] Licensed Practical Nurse Family Medicine 04/10/24 Rosa [place], RN [address] [place] [address] Licensed Practical Nurse Family Medicine 05/31/2407/12 Humera Fontenot LPN [address] [address] 07/12/24 documented as of this encounter
--- OUTSIDE RECORDS SUMMARY | 2024-11-06 06:48 | XMS_ITS | Encounter Summary ---
Author Organization [facility] Address [address] [facility] [place] [address] Care Team Providers Care Adobe Layer Helper Name Role Phone Erika Gaviria MD Primary Care Provider [phone] Monday, Bina DRIVE IN WAITER/WAITRESS Unavailable [phone] Rosa Edwards RN Unavailable Fontenot, Humera DRIVE IN WAITER/WAITRESS Unavailable Encounter Details Date Type Department Care Team (Late st Contact Info) Description 05/28/2024 Abstract [facility] 112 [facility] 110 [place] [address] Erika Gavirai MD 112 [facility] 110 [place] [address] Social History Tobacco Use Types Packs/Day Years [...] week 01/06/2024 How often do you attend [facility] or latter-day services? More than 4 times per year 01/06/2024 Do you belong to any clubs o r organizations such as yarsani groups, unions, fraternal or athletic groups, or [...] Recorded Patient Health Questionnaire-2 Score 1 01/06/2024 [facility] of Occupat ional Health - [...] place to sleep or slept in a assisted (including now)? No 11/09/2022 Housing Stability Vital [...] were you homeless or living in a assisted (including now)? No 04/12/2024 Comments Unknown Sex [...] Visit [facility] [place] [address] [facility] 110 [place] [address] Franny Salazar PA [address] [facility] 110 [place] [address] documented as of this encounter Visit Diagnoses Not on filedocumented in this encounter Additional Health Concerns Assessment Noted Time PHQ-9 Depression Total Score: 5 01/06/20 24 5:38 AM EDT documented as of this encounter Care Teams Adobe Layer Helper Relationship Specialty Start Date End Date Erika Gaviria MD [address] [place] [address] PCP - General Family Medicine 11/15/22MondayBina LPN [address] [facility] 110 [place] [address] Licensed Practical Nurse Family Medicine 04/10/24 Rosa [place], RN [address] [place] [address] Licensed Practical Nurse Family Medicine 05/31/2407/12 Humera Fontenot LPN [address] [facility] 110 [place] [address] 07/12/24 documented as of this encounter
--- OUTSIDE RECORDS SUMMARY | 2024-11-06 06:48 | XMS_ITS | Encounter Summary ---
Author Organization [facility] Address [address] [facility] [place] [address] Care Team Providers Care Lead Nuclear Medicine Technologist Name Role Phone Erika Gaviria MD Primary Care Provider Kate Slater PSYCHOLOGY FELLOW Unavailable Naomie Johnson RN Unavailable [phone] MondayBina ASSISTED LIVING COORDINATOR Unavailable [phone] Rosa Edwards RN Unavailable [phone] FontenotHumera ASSISTED LIVING COORDINATOR Unavailable Encounter Details Date Type Department Care Team (Late st Contact Info) Description 01/12/2024 Abstract [facility] 112 [facility] [facility] 110 [place] [id number] Erika Gaviria MD 112 [facility] 110 [place] [address] Social History Tobacco Use Types Packs/Day Years [...] How often do you attend chur or amish services? More than 4 times per year 01/06/2024 Do you belong to any clubs o r organizations such as samaritan groups, unions, fraternal or athletic groups, or [...] Recorded Patient Health Questionnaire-2 Score 1 01/06/2024 [facility] [place] of Occupat ional Health - Occupational Stress [...] a skilled nursing (including now)? No 11/09/2022 Housing Stability Vital Sign Answer Michael e Recorded In the last 12 months, was t here a time when you were not able to pay the mortgage or rent on time? No 01/06/2024 Number of Times Moved in the Last Year Not on fi le 01/06/2024 At any time in the past 12 m [facility], were you homeless or living in a skilled nursing (including now)? No 01/06/2024 Comments Unknown Sex and Gender Information Value Date Recorded Sex Assigned at Not on file Legal Sex Female 8:00 PM EDT Gender Identity Not on file Sexual Orientation Not on file documented as of this encounter Plan of Treatment Upcoming Encounters Date Type Department Care Team (Late st Contact Info) Description 11/12/2024 8:00 AM EDT Office Visit [facility] [address] [place] [address] Franny Salazar PA [address] [place] [address] documented as of this encounter Visit Diagnoses Not on filedocumented in this encounter Additional Health Concerns Assessment Noted Time PHQ-9 Depression Total Score: 5 01/06/20 24 5:38 AM EDT documented as of this encounter Care Teams Lead Nuclear Medicine Technologist Relationship Specialty Start Date End Date Erika Gaviria MD [address] [place] [address] PCP - General Family Medicine 11/15/22 Kate Slater NP [address], [facility] 111 [place] [address] PCP - Selene IVORY 12/24/23 03/23/24 Naomie Johnson RN [address] [facility] [address] [place] [address] Registered Nurse Family Medicine 04/04/24 04/10/24MondayBina LPN [address] [facility] 110 [place] [address] Licensed Practical Nurse Family Medicine 04/10/24 Rosa Edwards RN [address] [place] [address] Licensed Practical Nurse Family Medicine 05/31/2407/12 Humera Fontenot LPN [address] [facility] 110 [place] [address] 07/12/24 documented as of this encounter
--- OUTSIDE RECORDS SUMMARY | 2024-11-06 06:48 | XMS_ITS ---
Author Organization [facility] Healthcare Address [address] [facility] [place] [address] Care Team Providers Care Auditing Control Clerk Name Role Phone Erika Gaviria MD Primary Care Provider [phone] Humera Fontenot LPN Unavailable Chronic Care Management (CCM) Status:Enrolled (Active) Start date:04/04/2024 Enrollment date:04/11/2024 Enrollment reason:Identified as high-risk Overview 04/11/24, 4:38 PM - Binamonday, HOTEL STAFF MEMBER- Patient gives verbal consent to be enrolled in CCM Program and understands there could be a bill for this service. Case Team Name Relationship Phone Humera Fontenot LPN(Responsible Staff) [phone] Continued Care and Services Coordination
--- OUTSIDE RECORDS SUMMARY | 2024-11-06 06:48 | XMS_ITS | Encounter Summary ---
Author Organization [facility] Address [address] [facility] [place] [address] Care Team Providers Care Training Development Director Name Role Phone Erika Gaviria MD Primary Care Provider Franny Salazar PA Unavailable Erika Gaviria MD Unavailable Erika Gaviria MD Unavailable Karolyn Rangel BURNER OPERATOR Unavailable [phone] Kate Slater BURNER OPERATOR Unavailable Naomie Johnson RN Unavailable [phone] Monday, Bina CERTIFIED OPHTHALMIC ASSISTANT Unavailable [phone] Rosa Edwards RN Unavailable Humera Fontenot CERTIFIED OPHTHALMIC ASSISTANT Unavailable Encounter Details Date Type Department Care Team (Late st Contact Info) Description 01/24/2023 Orders Only [facility] [address] [place] [address] A, Unknown Practice [address] [place] [address] Social History Tobacco Use Types Packs/Day Years [...] How often do you attend chur or zoroastrianism services? More than 4 times per year 11/09/2022 Do you belong to any clubs o r organizations such as muslim groups, unions, fraternal or athletic groups, or [...] and heating? Not hard at all 11/09/2022 [facility] [place] of Occupat ional Health - Occupational Stress [...] health care facility (including now)? No 11/09/2022 Comments Unknown Sex [...] suspected to have Coronavirus/COVID-19? No / Unsure 01/11/2023 8:41 AM EDT documented as of this encounter Plan of Treatment Upcoming Encounters Date Type Department Care Team (Late st Contact Info) Description 11/12/2024 8:00 AM EDT Office Visit [facility] 112 [facility] 110 [place] [address] Franny Salazar PA 112 [facility] 110 [place] [address] documented as of this encounter Procedures Procedure Name Priority Date/Time Associated Diagnosis Comments MAMMOGRAM* Routine 10/21/2022 8:16 AM EDT MAMMOGRAM* Routine 10/21/2022 8:08 AM EDT documented in this encounter Results * MAMMOGRAM* (10/21/2022 8:16 AM EDT) Anatomical Region Laterality Modality Radiographic Christina ging us Unknown Practice A IMG XR PROCEDURES Final Resul t * MAMMOGRAM* (10/21/2022 8:08 AM EDT) Anatomical Region Laterality Modality Radiographic Christina ging us Unknown Practice A IMG XR PROCEDURES Final Resul t documented in this encounter Visit Diagnoses Not on filedocumented in this encounter Care Teams Training Development Director Relationship Specialty Start Date End Date Erika Gaviria MD [address] [facility] 110 [place] [address] PCP - General Family Medicine 11/15/22 Franny Salazar, PA [address] [facility] 110 [place] [address] PCP - [facility] 10/22/22 Erika Gaviria MD [address] [facility] 110 [place] [address] PCP - Selene IVORY 04/24/23 10/22/23 Erika Gaviria MD [address] [facility] 110 [place] [address] PCP - S [facility] 07/24/23 10/22/23 Karolyn Rangel NP [address] [facility] 110 [place] [address] PCP - Selene IVORY 10/23/23 12/23/23 Kate Slater NP [address], [facility] 111 [place] [address] PCP - Selene IVORY 12/24/23 03/23/24 Naomie Johnson RN [address] [facility] 230 [place] [address] Registered Nurse Family Medicine 04/04/24 04/10/24MondayBina LPN [address] [place], [place] [address] Licensed Practical Nurse Family Medicine 04/10/24 Rosa Edwards RN [address] [place] [address] Licensed Practical Nurse Family Medicine 05/31/2407/12 Humera Fontenot LPN [address] [place] [address] 07/12/24 documented as of this encounter
--- OUTSIDE RECORDS SUMMARY | 2024-11-06 06:48 | XMS_ITS | Encounter Summary ---
Author Organization [facility] Address [address] [facility] [place] [address] Care Team Providers Care Analyst Competitive Intelligence Name Role Phone Erika Gaviria MD Primary Care Provider [phone] Erika Gaviria MD Unavailable Erika Gaviria MD Unavailable Karolyn Rangel NEWSPAPER DELIVERER Unavailable [phone] Kate Slater NEWSPAPER DELIVERER Unavailable Naomie Johnson RN Unavailable Monday, Bina DEEP TISSUE MASSAGE THERAPIST Unavailable [phone] Rosa Edwards RN Unavailable [phone] Fontenot Humera DEEP TISSUE MASSAGE THERAPIST Unavailable Encounter Details Date Type Department Care Team (Late st Contact Info) Description 08/15/2023 Abstract [facility] 112 [facility] [address] [place] [address] Erika Gaviria MD 112 [facility] 110 [place] [address] Social History Tobacco Use Types Packs/Day Years [...] often do you attend chur ch or jain services? More than 4 times per year 11/09/2022 Do you belong to any clubs o r organizations such as catholic groups, unions, fraternal or athletic groups, or [...] and heating? Not hard at all 11/09/2022 [facility] [place] of Occupat ional Health - Occupational Stress [...] Office Visit [facility] [address] [facility] 110 [place] [address] Franny Salazar PA [address] [facility] [address] [place] [address] documented as of this encounter Visit Diagnoses Not on filedocumented in this encounter Care Teams Analyst Competitive Intelligence Relationship Specialty Start Date End Date Erika Gaviria MD [address] [facility] 110 [place] [address] PCP - General Family Medicine 11/15/22 Erika Gaviria MD [address] [facility] 110 [place] [address] PCP - Selene IVORY 04/24/23 10/22/23 Erika Gaviria MD [address] [facility] 110 [place] [address] PCP - S [facility] 07/24/23 10/22/23 Karolyn Rangel NP [address] [facility] 110 [place] [address] PCP - [place] CACHORRO 10/23/23 12/23/23 Kate Slater NP [address], [facility] 111 [place] [address] PCP - Selene IVORY 12/24/23 03/23/24 Naomie Johnson, JEREMY [address] [facility] [address] [place] [address] Registered Nurse Family Medicine 04/04/24 04/10/24MonDiegoBina bedolla LPN [address] [facility] [address] [place] [address] Licensed Practical Nurse Family Medicine 04/10/24 Rosa Edwards, JEREMY [address] [place] [address] Licensed Practical Nurse Family Medicine 05/31/2407/12 Humera Fontenot LPN [address] [facility] [address] [place] [address] 07/12/24 documented as of this encounter
--- OUTSIDE RECORDS SUMMARY | 2024-11-06 06:48 | XMS_ITS | Encounter Summary ---
Author Organization [facility] Address [address] [facility] [place] [address] Care Team Providers Care Calender Tender Name Role Phone Erika Zee MD Primary Care Provider [phone] Karolyn Rangel VISUAL EFFECTS ARTIST Unavailable Kate Slater VISUAL EFFECTS ARTIST Unavailable [phone] Naomie Johnson RN Unavailable Monday, Bina REINFORCED IRONWORKER Unavailable [phone] Rosa Edwards RN Unavailable FontenotHumera REINFORCED IRONWORKER Unavailable Encounter Details Date Type Department Care Team (Late st Contact Info) Description 10/30/2023 Clinisync Result Encounter [facility] External Department Unsolicited Erika Zee MD [address] [facility] [address] [place] [address] Social History Tobacco Use Types Packs/Day Years [...] How often do you attend chur or denominational services? More than 4 times per year 11/09/2022 Do you belong to any clubs o r organizations such as judaism groups, unions, fraternal or athletic groups, or [...] and heating? Not hard at all 11/09/2022 [facility] [place] of Occupat ional Health - Occupational Stress [...] in a long-term (including now)? No 11/09/2022 Comments Unknown Sex and Gender Information Value Date Recorded Sex Assigned at Not on file Legal Sex Female 8:00 PM EDT Gender Identity Not on file Sexual Orientation Not on file documented as of this encounter Plan of Treatment Upcoming Encounters Date Type Department Care Team (Late st Contact Info) Description 11/12/2024 8:00 AM EDT Office Visit [facility] [address] [facility] [facility] 110 [place] [address] Franny Salazar PA [address] [facility] [address] [place] [address] documented as of this encounter Procedures Procedure Name Priority Date/Time Associated Diagnosis Comments MM TOMOSYNTHESIS SCREENING BI 10/30/2023 7:21 AM EDT documented in this encounter Results * MM TOMOSYNTHESIS SCREENING BI (10/30/2023 7:21 AM EDT) Anatomical Region Laterality Modality Other 10/30/2023 7:21 AM EDT Narrative 10/30/2023 7:22 [place] [address] Mammography Report Signed Patient: АННА AMAYA V MR#: [id number] : 1960 Acct:[id number] Age/Sex: 63 / F ADM Date: 10/27/23 Loc: MAMMO Attending Dr: ERIKA ZEE Ordering Physician: ERIKA ZEE Results: Date of Service: 10/27/23 Follow Up: Procedure(s): MM tomosynthesis screening BI Accession Number(s): [id number] cc: ERIKA ZEE Patient Name: АННА AMAYA MR#: [id number] : 1960 Exam Date: 10/27/2023 Ordering Doctor: DR ERIKA ZEE M.D. RADIOLOGY REPORT PROCEDURE: MM TOMOSYNTHESIS SCREENING BI COMPARISON: MM TOMOSYNTHESIS SCREENING BI, 10/21/2022. MG MAMM SCREEN 3D HOLLY CAD, 10/20/2021. INDICATIONS: Screening Calculator Name NCI Breast Cancer Risk Assessment Tool 5 Year Breast Cancer Risk 0.90% Lifetime Breast Cancer Risk 4.20% Personal Breast Cancer No Personal Ovarian Cancer No Treatments None Family Cancers None LOCATION: The [facility] BREAST COMPOSITION: There are scattered areas of fibroglandular density. FINDINGS: DIAGNOSTIC CATEGORY 1--NEGATIVE. NO [...] PALPABLE LUMP SHOULD BE BIOPSIED. Dictated by: Julian Casey MD on 10/30/2023 at 07:20 Approved by: Julian Casey MD on 10/30/2023 at 07:21 Dictated By: Julian Casey M.D. Signed By: 10/30/2322 DD/ 0 TD/TT: Contingents Supervisor: Procedure Note Radiology, Radiologist, - 10/30/2023 [place] [address] Mammography Report Signed Patient: АННА AMAYA VMR#: [id number] : 1Acct:[id number] Age/Sex: 63 / FADM Date: 10/27/23 Loc: MAMMO Attending Dr: ERIKA ZEE Ordering Physician: ERIKA ZEEResults: Date of Service: 10/27/23Follow Up: Procedure(s): MM tomosynthesis screening BI Accession Number(s): [id number] cc: YAYOLANDY IbanezLAURENCE Patient Name: АННА AMAYA MR#: [id number] : 1960 Exam Date: 10/27/2023 Ordering Doctor: DR ERIKA ZEE M.D. RADIOLOGY REPORT PROCEDURE: MM TOMOSYNTHESIS SCREENING BI COMPARISON: MM TOMOSYNTHESIS SCREENING BI, 10/21/2022. MG MAMM [id number] HOLLY CAD, 10/20/2021. INDICATIONS: Screening Calculator Name NCI Breast Cancer Risk Assessment Tool 5 Year Breast Cancer Risk 0.90% Lifetime Breast Cancer Risk 4.20% Personal Breast Cancer No Personal Ovarian Cancer No Treatments None Family Cancers None LOCATION: The [facility] BREAST COMPOSITION: There are scattered areas of fibroglandulardensity. FINDINGS: DIAGNOSTIC CATEGORY 1--NEGATIVE. NO CHANGE FROM COMPARISON ASSESSMENT. Scattered benign-appearing nodules are present. Scatteredbenign-appearing calcifications are present. Scattered benign-appearing lymph nodes are present. RIGHT BREAST: No significant suspicious finding. LEFT BREAST: No significant suspicious finding. RECOMMENDATIONS: ROUTINE MAMMOGRAM AND CLINICAL EVALUATION IN 12 MONTHS. PLEASE NOTE: A NORMAL MAMMOGRAM DOES NOT EXCLUDE THE POSSIBILITY OFBREAST CANCER. A CLINICALLY SUSPICIOUS PALPABLE LUMP SHOULD BE BIOPSIED. Dictated by: Julian Casey MD on 10/30/2023 at 07:20 Approved by: Julian Casey MD on 10/30/2023 at 07:21 Dictated By: Julian Casey M.D. Signed By:10/30/23721 DD/ 0 TD/TT: Contingents Supervisor: Erika Zee MD [facility] Final Result documented in this encounter Visit Diagnoses Not on filedocumented in this encounter Care Teams Calender Tender Relationship Specialty Start Date End Date Erika Zee MD [address] [facility] 110 [place] [address] PCP - General Family Medicine 11/15/22 Karolyn Rangel, VISUAL EFFECTS ARTIST [address] [facility] 110 [place] [address] PCP - Selene IVORY 10/23/23 12/23/23 Kate Slater NP [address], [facility] 111 [place] [address] PCP - Selene IVORY 12/24/23 03/23/24 Naomie Johnson RN [address] [facility] 230 [place] [address] Registered Nurse Family Medicine 04/04/24 04/10/24MondayBina LPN [address] [facility] 110 [place] [address] Licensed Practical Nurse Family Medicine 04/10/24 Rosa Edwards RN [address] [place] [address] Licensed Practical Nurse Family Medicine 05/31/2407/12 Humera Fontenot LPN [address] [facility] 110 [place] [address] 07/12/24 documented as of this encounter
--- OUTSIDE RECORDS SUMMARY | 2024-11-06 06:48 | XMS_ITS | Encounter Summary ---
Author Organization [facility] Address [address] [facility] [place] [address] Care Team Providers Care Internet Cafe Manager Name Role Phone Erika Gaviria MD Primary Care Provider Erika Gaviria MD Unavailable Erika Gaviria MD Unavailable Karolyn Rangel DIVEMASTER Unavailable [phone] Kate Slater DIVEMASTER Unavailable Naomie Johnson RN Unavailable Monday, Bina GM/SVP GLOBAL PUBLISHER BUSINESS Unavailable [phone] Rosa Edwards RN Unavailable Fontenot Humera GM/SVP GLOBAL PUBLISHER BUSINESS Unavailable Encounter Details Date Type Department Care Team (Late st Contact Info) Description 08/15/2023 Abstract [facility] 112 [facility] 110 [place] [address] Erika Gaviria MD 112 [facility] 110 [place] [address] Social History Tobacco Use Types Packs/Day Years [...] often do you attend chur ch or taoist services? More than 4 times per year 11/09/2022 Do you belong to any clubs o r organizations such as yazdanism groups, unions, fraternal or athletic groups, or [...] and heating? Not hard at all 11/09/2022 [facility] [place] of Occupat ional Health - Occupational Stress [...] place to sleep or slept in a retirement (including now)? No 11/09/2022 Comments Unknown Sex [...] Office Visit [facility] [address] [facility] 110 [place] [address] Franny Salazar PA [address] [place] [address] [place] [address] documented as of this encounter Visit Diagnoses Not on filedocumented in this encounter Care Teams Internet Cafe Manager Relationship Specialty Start Date End Date Erika Gaviria MD [address] [place] [address] [place] [address] PCP - General Family Medicine 11/15/22 Erika Gaviria MD [address] [facility] [address] [place] [address] PCP - Selene IVORY 04/24/23 10/22/23 Erika Gaviria MD [address] [facility] [address] [place] [address] PCP - [facility] 07/24/23 10/22/23 Karolyn Rangel NP [address] [facility] [address] [place] [address] PCP - [place] CACHORRO 10/23/23 12/23/23 Kate Slater NP [address], [facility] [address] [place] [address] PCP - Selene IVORY 12/24/23 03/23/24 Naomie Johnson, JEREMY [address] [facility] [address] [place] [address] Registered Nurse Family Medicine 04/04/24 04/10/24MonDiegoBina bedolla LPN [address] [facility] 110 [place] [address] Licensed Practical Nurse Family Medicine 04/10/24 Rosa Edwards, JEREMY [address] [place] [address] Licensed Practical Nurse Family Medicine 05/31/2407/12 Humera Fontenot LPN [address] [place] [address] [place] [address] 07/12/24 documented as of this encounter
--- OUTSIDE RECORDS SUMMARY | 2024-11-06 06:48 | XMS_ITS | Encounter Summary ---
Author Organization [facility] Address [address] [place] [address] Care Team Providers Care Designer Writer Name Role Phone Erika Gaviria MD Primary Care Provider [phone] Kate Slater SHIPSMITH Unavailable Naomie Johnson RN Unavailable MondayBina STORAGE SPECIALIST Unavailable [phone] Rosa Edwards RN Unavailable FontenotHumera STORAGE SPECIALIST Unavailable Encounter Details Date Type Department Care Team (Late st Contact Info) Description 01/17/2024 Abstract [facility] [address] [facility] 110 [place] [phone] Franny Salazar PA [address] [facility] 110 [place] [address] Social History Tobacco Use Types Packs/Day Years [...] How often do you attend chur or lutheran services? More than 4 times per year 01/06/2024 Do you belong to any clubs o r organizations such as jewish groups, unions, fraternal or athletic groups, or [...] Recorded Patient Health Questionnaire-2 Score 1 01/06/2024 [facility] [place] of Occupat ional Health - Occupational Stress [...] 11/12/2024 8:00 AM EDT Office Visit [facility] [address] [place] [address] [place] [address] Franny Salazar PA [address] [facility] [address] [place] [address] documented as of this encounter Visit Diagnoses Not on filedocumented in this encounter Additional Health Concerns Assessment Noted Time PHQ-9 Depression Total Score: 5 01/06/20 24 5:38 AM EDT documented as of this encounter Care Teams Designer Writer Relationship Specialty Start Date End Date Erika Gaviria MD [address] [facility] [address] [place] [address] PCP - General Family Medicine 11/15/22 Kate Slater NP [address], [email or web address] 111 [place] [address] PCP - Selene IVORY 12/24/23 03/23/24 Naomie Johnson RN [address] [facility] [place] [address] Registered Nurse Family Medicine 04/04/24 04/10/24MondayBina LPN [address] [facility] [address] [place] [address] Licensed Practical Nurse Family Medicine 04/10/24 Rosa Edwards RN [address] [place] [address] Licensed Practical Nurse Family Medicine 05/31/2407/12 Humera Fontenot LPN [address] [facility] [[email or web address] [address] [place] [address] 07/12/24 documented as of this encounter
--- NOTE | 2024-11-06 06:59 | MM_ITS ---
Patient Name: YOUSUF ANGUIANO MR#: [id number] : 1960 Exam Date: 11/06/2024 Ordering Doctor: DR NELLY ZEE M.D. RADIOLOGY REPORT PROCEDURE: MM TOMOSYNTHESIS SCREENING BI COMPARISON: MM TOMOSYNTHESIS SCREENING BI, 10/27/2023. MM TOMOSYNTHESIS SCREENING BI, 10/21/2022. MG MAMM SCREEN 3D HOLLY CAD, 10/20/2021. MAMMO HOLLY SCREEN, 06/25/2009. INDICATIONS: Screening Calculator Name NCI Breast Cancer Risk Assessment Tool 5 Year Breast Cancer Risk 0.90% Lifetime Breast Cancer Risk 4.00% Personal Breast Cancer No Personal Ovarian Cancer No Treatments None Family Cancers None LOCATION: The [facility] BREAST COMPOSITION: The breasts are almost entirely fatty. FINDINGS: RIGHT BREAST: No significant suspicious finding. LEFT BREAST: No significant suspicious finding. DIAGNOSTIC CATEGORY 1--NEGATIVE. RECOMMENDATIONS: ROUTINE MAMMOGRAM AND CLINICAL EVALUATION IN 12 MONTHS. PLEASE NOTE: A NORMAL MAMMOGRAM DOES NOT EXCLUDE THE POSSIBILITY OF BREAST CANCER. A CLINICALLY SUSPICIOUS PALPABLE LUMP SHOULD BE BIOPSIED. Dictated by: Jose Myers MD on 11/06/2024 at 10:49 Approved by: Jose Myers MD on 11/06/2024 at 11:13
== END 2024-11-06 06:45 | disposition home or self-care (01) ==
LOC: MAMMO 06:45
PROVIDERS: PCP Family Medicine; Visit Provider Family Medicine
DX: Z12.31 Encounter for screening mammogram for malignant neoplasm of breast (principal)
CPT/HCPCS: 77063; 77067

== ENCOUNTER 2024-11-12 09:03 | Outpatient (OUT) | payer MEDICARE, SELFPAY ==
--- NOTE | 2024-11-12 09:20 | XR_ITS ---
The [address] [address] Patient Name: YOUSUF ANGUIANO MRN: [id number] date: 1960 Sex: F Assigned Patient Location: LAB Current Patient Location: LAB Accession/Order Number: [id number] Exam Date: 11/12/2024 10:05 Report Date: 11/12/2024 10:06 At the request of: DARRYL MCDERMOTT Procedure: XR hip LT min 2V LEFT HIP - 2 views: CLINICAL HISTORY: Chronic Left Hip Pain COMPARISON: None FINDINGS: Joint space of the hip appears maintained. No acute bony process. XR/XR hip LT min 2V IMPRESSION: NO ACUTE BONY PROCESS OR SIGNIFICANT DEGENERATIVE CHANGE. Impression dictated by: Lew Rosario Jr., D.O. 11/12/2024 10:06 AM Dictation Location: [place] [address] Electronically authenticated by: [id number] Y Date: 11/12/2024 10:06
[2024-11-12 10:55] LABS: Folate 24.20 ng/mL (8.60-58.90)
[2024-11-13 05:07] LABS: Vitamin B12 863 pg/mL (232-1245)
== END 2024-11-12 09:04 | disposition home or self-care (01) ==
LOC: LAB 09:04
PROVIDERS: PCP Family Medicine; Visit Provider Physician Assistant
DX: R20.2 Paresthesia of skin (principal); N18.32 Chronic kidney disease, stage 3b; M25.552 Pain in left hip; G89.29 Other chronic pain
CPT/HCPCS: 36415; 73502; 82607; 82746

== ENCOUNTER 2025-01-16 07:02 | Outpatient (OUT) | payer MEDICARE, SELFPAY ==
--- OUTSIDE RECORDS SUMMARY | 2024-02-08 09:30 | XMS_ITS ---
Author Organization [facility] vices Address [address] [place], [place] [address] [phone] Care Team Providers Care 1St Grade Teacher Name Role Phone Shanna Lloyd Unavailable [phone] REASON FOR VISIT Recall (A)- 63 Social History Sex Assigned At : Social History Observation Description Sex Assigned At Female Encounters Encounter Location Date Provider Diagnosis [facility] [address] [place], [place] [id number] 02/08/2024 Shanna Lloyd Plan Of Treatment No Information Progress Notes * Анна AMAYADOB: [birth year] (64 yo F)Acc No.[id number]:02/08/2024 Patient: Анна NAGY Provider: Elaine Lloyd DDS :1960 A ge:63 Y S ex:Female Date:02/08/2024 Address:[address] [place] [address] [address], [id number] Subjective: * Chief Complaints: * 1 . Recall (A)- 63. * Medical History: Objective: * Vitals: Assessment: Plan: * Treatment: * Billing Information: * Visit Code: * Procedure Codes: * Electronic signature of Sonya Lloyd DDS on 01/16/2025 at 07:07 AM EDT Sign off status: Pending * Provider: Elaine Lloyd DDS Date: 1 Generated for Kamron mello/Sweetie/eTransmitting on: 0 01/16/2025 07:07 AM EDT
--- OUTSIDE RECORDS SUMMARY | 2025-01-16 07:06 | XMS_ITS | CCD ---
Author Organization [facility] Care Team Providers Care Mrb Engineer Name Role Phone YAYO, DR VILLEGAS [...] Unavailable YAYO, DR VILLEGAS Primary Care Unavailable Nelly Zee MD Primary Care Provider [phone] Juan Carlos STEEL POST INSTALLER SUPERVISOR, Karolyn Thomas Unavailable [phone] Bryon LENÓ, Kate Orosco Unavailable Nelly Zee MD Primary Care Provider Sivakumar Juárez MD Attending Provider Monday LAND ACQUISITION SPECIALIST, Bina Unavailable Jerry LUNA, Rosa Unavailable Al Andreina Camaraer Attending Unavailable Al Jax Donaldo Referring Unavailable Al Donaldo Camara Attending Unavailable Al Jax Donaldo Referring Unavailable Donaldo Mills MD Unavailable Unavailabl e Po LAND ACQUISITION SPECIALIST, Humera Unavailable Unavailable Asaad, Imad Attending Unavailable Asaad, Imad Admitting Unavailable DavenportNelly barton Primary Care Unavailable Fontenot LAND ACQUISITION SPECIALIST, Humera Unavailable FRANNY MCDERMOTT Attending Unavailable FRANNY MCDERMOTT Attending Unavailable FRANNY MCDERMOTT Attending Unavailable FRANNY MCDERMOTT Attending Unavailable FRANNY MCDERMOTT Attending Nelly Leija MD Primary Care Provider Jhonatan Trinidad APRN Attending Provider Medications Current Medications Medication Drug Class(es) Dates Sig (Normalized) Sig (Original) [id number] 200 actuat albuterol 0.09 mg/actuat metered dose inhaler (20 sources) beta2-Adrenergic Agonist Start: 02-08-2024 take 2 puff(s) by inhalation every four hours for wheezing albuterol HFA (Ventolin HFA) 90 mcg/act inhaler Indications: Moderate persistent asthma without complication (HCC) Inhale 2 puffs every 4 (four) hours [...] needed for Allergic Reaction June 06, 2019 1:00am Complies with drug therapy busPIRone hydrochloride 5 mg oral tablet (13 sources) Start: 06-10-2024 take 1 tablet by mouth twice daily as needed for anxiety busPIRone (Buspar) 5 MG tablet Indications: Stress reaction Take 1 tablet (5 mg) by mouth 2 (two) times a day as needed (Anxiety) 60 tablet 2 06/10/2024 Active chlorhexidine gluconate 1.2 mg/ml mouthwash (20 sources) Start: 01-03-2024 End: 11-12-2024 chlorhexidine (Peridex) 0.12 % solution Use 15 mL in the mouth or throat if needed for wound care 01/03/2024 11/12/2024 Discontinued (Other) cyclobenzaprine hydrochloride 10 mg oral tablet (13 sources) Muscle Relaxant take 1 tablet by mouth three times daily as needed for muscle spasms cyclobenzaprine (Flexeril) 10 MG tablet Take 10 mg by mouth 3 (three) times a day as needed for muscle spasms Active diphenhydrAMINE hydrochloride 25 mg oral tablet (2 sources) Histamine-1 Receptor Antagonist Start: 06-06-2019 take 1 tablet by mouth every eight hours as needed Diphenhydramine Hcl (Benadryl Allergy) 25 mg Tablet Active 25 MG PO Q8H as needed for Allergy Symptoms June 06, 2019 1:00am Complies with drug therapy DULoxetine 30 mg delayed release oral capsule (1 source) Serotonin and Norepinephrine Reuptake Inhibitor Start: 11-13-2024 take 1 capsule by mouth once daily DULoxetine (Cymbalta) [address] capsule Indications: Other chronic pain Take 1 capsule (30 mg) by mouth Daily Do not crush or chew. 30 capsule 2 11/13/2024 Active Start: 11-13-2024 take 1 capsule by mo uth once daily DULoxetine (Cymbalta) [address] capsule Indications: Other chronic pain Take 1 capsule (30 mg) by mouth Daily Do not crush or chew. 30 capsule 2 11/13/2024 Active hydroCHLOROthiazide 25 mg oral tablet (20 sources) Thiazide Diuretic Start: 06-06-2019 take 1 tablet by mouth once daily Hydrochlorothiazide 25 mg tablet Active 25 MG PO Daily June 06, 2019 1:00am Complies with drug therapy levothyroxine sodium 0.025 mg oral tablet (20 sources) l-Thyroxine Start: 03-15-2024 take 1 tablet by mouth in the morning levothyroxine (Synthroid, Levoxyl) 25 MCG tablet Indications: Acquired hypothyroidism Take 1 tablet (25 mcg) by mouth in the morning. Take on an empty stomach.. 100 tablet 3 06/19/2024 Active Start: 10-30-2023 take 1 tablet by [...] take 1 tablet by mouth once daily Montelukast 10 mg tablet Active 10 MG PO Daily June 06, 2019 1:00am Complies with drug therapy Multiple Vitamin (multivitamin) tablet (4 sources) take 1 tablet by mouth once daily Multiple Vitamin (multivitamin) tablet Take 1 tablet by mouth Daily Active omeprazole 40 mg delayed release oral capsule (1 source) Proton Pump Inhibitor Start: 12-13-2024 take 1 capsule by mouth twice daily Omeprazole 40 mg capsule,delayed release(DR/EC) Active 40 MG PO Twice daily December 13, 2024 12:00am Complies with drug therapy potassium chloride 20 meq extended release oral tablet (20 sources) Start: 06-14-2024 take 1 tablet by [...] take 1 tablet by mouth once daily Rosuvastatin (Crestor) 10 mg tablet Active 10 MG PO Daily May 16, 2024 1:00am Complies with drug therapy vitamin a 2.4 mg oral capsule (1 [...] See administration instructions 01/03/2024 01/10/2024 Discontinued (Other) pantoprazole 40 mg delayed release oral tablet (20 sources) Proton Pump Inhibitor Start: 0 End: 5 take 1 tablet by mouth once daily Pantoprazole 40 mg tablet,delayed release (DR/EC) Discontinued 40 MG PO Daily 90 90 June 14, 2024 10:08am December 13, 2024 1:22pm Problems Active Problems Problem Classification Problem Date Documented Da te Episodic/Chronic Abdominal hernia (1 source) Hiatal hernia; Translations: [Diaphragmatic hernia without obstruction or gangrene] 06-14-2024 Episodic Anxiety disorders (20 sources) Generalized anxiety disorder; Translations: [Generalized anxiety disorder] Onset: 3 11-14-2022 Chronic Asthma (20 sources) Uncomplicated moderate persistent asthma; Translations: [Moderate persistent asthma, uncomplicated] Onset: 3 11-14-2022 Chronic Blindness and vision defects (9 sources) Generalized contraction of visual field, bilateral; Translations: [Generalized visual field contraction or constriction] Episodic Cataract (13 sources) Presence of intraocular lens; Translations: [Age-related nuclear cataract, bilateral] Onset: 4 Chronic Chronic kidney disease (20 sources) Chronic kidney disease stage 3A ; Translations: [Stage 3a chronic kidney disease (HCC)] Onset: 3 Resolved: 5 11-14-2022 Chronic Disorders of lipid metabolism (20 sources) Raised low density lipoprotein cholesterol; Translations: [Pure hypercholesterolemia, unspecified] Onset: 3 11-14-2022 Chronic Esophageal disorders (20 sources) Gastroesophageal reflux disease; Translations: [Gastro-esophageal reflux disease without esophagitis] Onset: 3 11-14-2022 Chronic Essential hypertension (20 sources) Benign hypertension; Translations: [Essential (primary) hypertension] Onset: 3 11-14-2022 Chronic Headache; including migraine (20 sources) Tension-type headache; Translations: [Tension-type headache, unspecified, not intractable] Onset: 3 11-14-2022 Chronic Other eye disorders (7 sources) Other vitreous opacities, bilateral Chronic Other eye disorders (2 sources) Vitreous degeneration, bilateral Chronic Other eye disorders (2 sources) Vitreous degeneration Chronic Other gastrointestinal disorders (20 sources) Dysphagia; Translations: [Dysphagia, unspecified] Onset: 3 11-14-2022 Episodic Other gastrointestinal disorders (1 source) H/O: gastrointestinal disease; Translations: [Personal history of other diseases of the digestive system] 06-14-2024 Episodic Other lower respiratory disease (2 sources) Chronic cough; Translations: [Chronic cough] 04-02-2024 Episodic Other nervous system disorders (20 sources) Chronic pain; Translations: [Other chronic pain] Onset: 3 11-14-2022 Chronic Other nervous system disorders (2 sources) Paresthesia of left lower limb; Translations: [Paresthesia of skin] 11-12-2024 Episodic Other non-traumatic joint disorders (20 sources) Joint ankylosis of the shoulder region; Translations: [Ankylosis, right shoulder] Onset: 3 11-14-2022 Chronic Other non-traumatic joint disorders (2 sources) Hip pain; Translations: [Pain in left hip] 11-12-2024 Episodic Other screening for suspected conditions (not mental disorders or infectious disease) (4 sources) Encounter for screening mammogram for malignant neoplasm of breast; Translations: [ENC SCR MAMMO MALIG NEOPLASM BREAST] Onset: 2 Episodic Other upper respiratory disease (20 sources) [...] APNEA] Onset: 1 Chronic Residual codes; unclassified (20 sources) Obstructive sleep apnea syndrome; Translations: [Obstructive sleep apnea (adult) (pediatric)] Onset: 3 11-14-2022 Chronic Residual codes; unclassified (20 sources) Dependence on continuous positive airway pressure ventilation; Translations: [Dependence on other enabling machines and devices] Onset: 3 11-15-2022 Chronic Retinal detachments; defects; vascular occlusion; and retinopathy (20 sources) Retinitis pigmentosa; 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] Onset: 8 Resolved: 5 11-14-2022 Chronic Rheumatoid arthritis and related disease (2 sources) Rheumatoid arthritis; Translations: [Rheumatoid arthritis, unspecified] 08-20-2024 Chronic Spondylosis; intervertebral disc disorders; other back problems (20 sources) Inflammation of sacroiliac joint; Translations: [Sacroiliitis, not elsewhere classified] Onset: 3 11-14-2022 Chronic Sprains and strains (2 sources) [...] [Hypokalemia] Onset: 11-14-2022 11-14-2022 Episodic Mood disorders (20 sources) Mood disorders Onset: 01-06-2024 01-10-2024 Neoplasms of unspecified nature or uncertain behavior (20 sources) Thrombocytosis; Translations: [Thrombocytosis] Onset: 11-14-2022 11-14-2022 Episodic Other gastrointestinal disorders (1 source) Dysphagia, unspecified; Translations: [Dysphagia, unspecified] Onset: 05-16-2024 Episodic Other non-traumatic joint disorders (15 sources) Pain in right knee; Translations: [Pain in joint, lower leg] Onset: 06-10-2024 06-10-2024 Episodic Other nutritional; endocrine; and metabolic disorders [...] Test Name Value Interpretation Reference Range Facility XR HIP [place] [address] [address] XRay Report Signed Patient: YOUSUF AMAYA V MR#: [id number] : 1960 Acct:[id number] Age/Sex: 64 / F ADM Date: 11/12/24 Loc: LAB Attending Dr: FRANNY MCDERMOTT Ordering Physician: FRANNY MCDERMOTT Date of Service: 11/12/24 Procedure(s): XR hip LT min 2V Accession Number(s): [id number] cc: NELLY ZEE ; FRANNY MCDERMOTT [place] [id number] Patient Name: YOUSUF AMAYA MRN: [facility]:[id number] date: 1960 Sex: F Assigned Patient Location: LAB Current Patient Location: LAB Accession/Order Number: [id number] Exam Date: 11/12/2024 10:05 Report Date: 11/12/2024 10:06 At the request of: FRANNY MCDERMOTT Procedure: XR hip LT min 2V LEFT HIP - 2 views: CLINICAL HISTORY: Chronic Left Hip Pain COMPARISON: None FINDINGS: Joint space of the hip appears maintained. No acute bony process. XR/XR hip LT min 2V IMPRESSION: NO ACUTE BONY PROCESS OR SIGNIFICANT DEGENERATIVE CHANGE. Impression dictated by: Lew Rosario Jr., D.O. 11/12/2024 10:06 AM Dictation Location: [place] [address] Electronically authenticated by: [id number] Y Date: 11/12/2024 10:06 Dictated By: Lew Rosario M.D. Signed By: 11/12/24 1008 DD/ 1006 TD/TT: Worship Director: [facility] Radiology, Radiologist, MD - 11/12/2024 [place] [address] XRay Report Signed Patient: YOUSUF AMAYA V MR#: [id number] : 1960 Acct:[id number] Age/Sex: 64 / F ADM Date: 11/12/24 Loc: LAB Attending Dr: FRANNY MCDERMOTT Ordering Physician: FRANNY MCDERMOTT Date of Service: 11/12/24 Procedure(s): XR hip LT min 2V Accession Number(s): [id number] cc: NELLY ZEE ; FRANNY MCDERMOTT [place] [address] Patient Name: YOUSUF AMAYA MRN: [facility]:[id number] date: 1960 Sex: F Assigned Patient Location: LAB Current Patient Location: LAB Accession/Order Number: [id number] Exam Date: 11/12/2024 10:05 Report Date: 11/12/2024 10:06 At the request of: FRANNY MCDERMOTT Procedure: XR hip LT min 2V LEFT HIP - 2 views: CLINICAL HISTORY: Chronic Left Hip Pain COMPARISON: None FINDINGS: Joint space of the hip appears maintained. No acute bony process. XR/XR hip LT min 2V IMPRESSION: NO ACUTE BONY PROCESS OR SIGNIFICANT DEGENERATIVE CHANGE. Impression dictated by: Lew Rosario Jr., D.O. 11/12/2024 10:06 AM Dictation Location: [place] [address] Electronically authenticated by: [id number] Y Date: 11/12/2024 10:06 Dictated By: Lew Rosario M.D. Signed By: 11/12/24 1008 DD/ 1006 TD/TT: Worship Director: [facility] Radiology Study observation (narrative) [facility] XR HIP LT MIN 2VOrdered By: Radiologist Radiology on 11-12-2024 [facility] [employer] [employer] Work Phone: mm TOMOSYNTHESIS SCREENING B Ion 11-06-[address] [address] Mammography Report Signed Patient: YOUSUF AMAYA V MR#: [id number] : 1960 Acct:[id number] Age/Sex: 64 / F ADM Date: 11/06/24 Loc: MAMMO Attending Dr: NELLY ZEE Ordering Physician: NELLY ZEE Results: Date of Service: 11/06/24 Follow Up: Procedure(s): MM tomosynthesis screening BI Accession Number(s): [id number] cc: YAYOLANDYMILAN Patient Name: YOUSUF AMAYA MR#: [id number] : 1960 Exam Date: 11/06/2024 Ordering Doctor: DR NELLY ZEE M.D. RADIOLOGY REPORT PROCEDURE: MM TOMOSYNTHESIS SCREENING BI COMPARISON: MM TOMOSYNTHESIS SCREENING BI, 10/27/2023. MM TOMOSYNTHESIS SCREENING BI, 10/21/2022. MG MAMM SCREEN 3D HOLLY CAD, 10/20/2021. MAMMO HOLLY SCREEN, 06/25/2009. INDICATIONS: Screening Calculator Name NCI Breast Cancer Risk Assessment Tool 5 Year Breast Cancer Risk 0.90% Lifetime Breast Cancer Risk 4.00% Personal Breast Cancer No Personal Ovarian Cancer No Treatments None Family Cancers None LOCATION: [facility] BREAST COMPOSITION: The breasts are almost entirely fatty. FINDINGS: RIGHT BREAST: No significant suspicious finding. LEFT BREAST: No significant suspicious finding. DIAGNOSTIC CATEGORY 1--NEGATIVE. RECOMMENDATIONS: ROUTINE MAMMOGRAM AND CLINICAL EVALUATION IN 12 MONTHS. PLEASE NOTE: A NORMAL MAMMOGRAM DOES NOT EXCLUDE THE POSSIBILITY OF BREAST CANCER. A CLINICALLY SUSPICIOUS PALPABLE LUMP SHOULD BE BIOPSIED. Dictated by: Jose Myers MD on 11/06/2024 at 10:49 Approved by: Jose Myers MD on 11/06/2024 at 11:13 Dictated By: Jose Myers M.D. Signed By: 11/06/24 1115 DD/ 1114 TD/TT: Worship Director: [facility] Radiology, Radiologist, - 11/06/2024 The [place] [id number] Mammography Report Signed Patient: YOUSUF AMAYA V MR#: [id number] : 1960 Acct:[id number] Age/Sex: 64 / F ADM Date: 11/06/24 Loc: MAMMO Attending Dr: NELLY ZEE Ordering Physician: NELLY ZEE Results: Date of Service: 11/06/24 Follow Up: Procedure(s): MM tomosynthesis screening BI Accession Number(s): [id number] cc: LANDY ZEEMILAN Patient Name: YOUSUF AMAYA MR#: [id number] : 1960 Exam Date: 11/06/2024 Ordering Doctor: DR NELLY ZEE M.D. RADIOLOGY REPORT PROCEDURE: MM TOMOSYNTHESIS SCREENING BI COMPARISON: MM TOMOSYNTHESIS SCREENING BI, 10/27/2023. MM TOMOSYNTHESIS SCREENING BI, 10/21/2022. MG MAMM SCREEN 3D HOLLY CAD, 10/20/2021. MAMMO HOLLY SCREEN, 06/25/2009. INDICATIONS: Screening Calculator Name NCI Breast Cancer Risk Assessment Tool 5 Year Breast Cancer Risk 0.90% Lifetime Breast Cancer Risk 4.00% Personal Breast Cancer No Personal Ovarian Cancer No Treatments None Family Cancers None LOCATION: [facility] BREAST COMPOSITION: The breasts are almost entirely fatty. FINDINGS: RIGHT BREAST: No significant suspicious finding. LEFT BREAST: No significant suspicious finding. DIAGNOSTIC CATEGORY 1--NEGATIVE. RECOMMENDATIONS: ROUTINE MAMMOGRAM AND CLINICAL EVALUATION IN 12 MONTHS. PLEASE NOTE: A NORMAL MAMMOGRAM DOES NOT EXCLUDE THE POSSIBILITY OF BREAST CANCER. A CLINICALLY SUSPICIOUS PALPABLE LUMP SHOULD BE BIOPSIED. Dictated by: Jose Myers MD on 11/06/2024 at 10:49 Approved by: Jose Myers MD on 11/06/2024 at 11:13 Dictated By: Jose Myers M.D. Signed By: 11/06/24 1115 DD/ 1114 TD/TT: Worship Director: [facility] Radiology Study observation (narrative) [facility] MM TOMOSYNTHESIS SCREENING B IOrdered By: Radiologist Radiology on 11-06-2024 [facility] [employer] Work Phone: ALL BASIC METABOLIC PANELon 06-14-2024 Anion gap [Moles/Vol] 8.6 mmol/L [facility] Calcium [Mass/Vol] 9.3 mg/dL 8.5 - 10. 1 mg/dL [facility] Chloride [Moles/Vol] 103 mmol/L 98 - 10 7 mmol/L [facility] CO2 [Moles/Vol] 31.7 mmol/L 21.0 - 32.0 mmol/L [facility] Creatinine [Mass/Vol] 1.29 mg/dL High 0.55 - 1.02 mg/dL [facility] GFR/1.73 sq M.predicted CKD-EPI (S/P/Bld) [Vol rate/Area] 51 Low >=60 mL/min/1.73m 2 [facility] Glucose [Mass/Vol] 119 mg/dL High 74 - 106 mg/dL [facility] Interpretation and review of laboratory results Abnormal [facility] Potassium [Moles/Vol] 3.3 mmol/L Low 3.5 - 5.1 mmol/L [facility] Sodium [Moles/Vol] 140 mmol/L 136 - 145 mmol/L [facility] EGFR-NON AF COMORAN 42 Low >=60 mL/min/1.73m 2 [facility] Urea nitrogen [Mass/Vol] 19 mg/dL High 7.0 - 18.0 mg/dL [facility] Urea nitrogen/Creatinine [Mass ratio] 14.7 mg/mg [facility] KNEE HOLLY 3Von 06-14-2024 [place] [id number] XRay Report Signed Patient: YOUSUF AMAYA V MR#: [id number] : 1960 Acct:[id number] Age/Sex: 63 / F ADM Date: 06/14/24 Loc: LAB Attending Dr: FRANNY MCDERMOTT Ordering Physician: FRANNY MCDERMOTT Date of Service: 06/14/24 Procedure(s): XR knee HOLLY 3V Accession Number(s): [id number] cc: NELLY ZEE ; FRANNY MCDERMOTT [address] [address] Patient Name: YOUSUF AMAYA MRN: [id number] date: 1960 Sex: F Assigned Patient Location: LAB Current Patient Location: LAB Accession/Order Number: [id number] Exam Date: 06/14/2024 13:05 Report Date: 06/14/2024 [...] Franny Mayberry M.D.06/14/2024 1:13 PM Dictation Location: [facility] Electronically authenticated by: [id number] Y Date: 06/14/2024 13:13 Dictated By: Franny Mayberry M.D. Signed By: 06/14/24 1316 DD/ 1313 TD/TT: Worship Director: [facility] Radiology, Radiologist, MD - 06/14/2024 [place] [address] XRay Report Signed Patient: YOUSUF AMAYA V MR#: [id number] : 1960 Acct:[id number] Age/Sex: 63 / F ADM Date: 06/14/24 Loc: LAB Attending Dr: FRANNY MCDERMOTT Ordering Physician: FRANNY MCDERMOTT Date of Service: 06/14/24 Procedure(s): XR knee HOLLY 3V Accession Number(s): [id number] cc: NELLY ZEE ; FRANNY MCDERMOTT The [place] [id number] Patient Name: YOUSUF MAAYA MRN: [facility]:[id number] date: 1960 Sex: F Assigned Patient Location: LAB Current Patient Location: LAB Accession/Order Number: [id number] Exam Date: 06/14/2024 13:05 Report Date: 06/14/2024 [...] Franny Mayberry M.D.06/14/2024 1:13 PM Dictation Location: [place] [address] Electronically authenticated by: [id number] Y Date: 06/14/2024 13:13 Dictated By: Franny Mayberry M.D. Signed By: 06/14/24 1316 DD/ 1313 TD/TT: Worship Director: [facility] Radiology Study observation (narrative) [facility] XR KNEE HOLLY 3VOrdered By: Ra camposevan Radiology on 06-14-2024 [facility] Work Phone: Dayo 05-16-2024 L - -------- Specimen: [id number] Received: 05/16/244709 Status: LALY Dougherty Num: [id number] Spec Type: Surgical Subm Dr: Sivakumar Juárez MD Tissues: A Soft Tissue Mass - Biopsy (HIATAL HERNIA POLYP) B Gastric Biopsy (GASTRIC BX) C Esophagus Biopsy (ESOPHAGUS BX) Procedures: HE/8, Gross/Micro L5, Gross/Micro L4/2, H PYLORI/2 -------- Age/ Patient Sex Location Account Attending Physician -------- Yousuf Amaya V 63/F [id number] Sivakumar Juárez MD -------- SPEC NUM: [id number] RECD: 05/16/24 STATUS: LALY DOUGHERTY NUM: [id number] KARAN: 05/16/[address] [facility] [address]: Sivakumar Juárez MD ENTERED: 05/16/[address] [facility] [address]: DAVID TYPE: Surgical DEPT: S ENTERED BY: [id number] RECV BY: [id number] ORDERED: HE/8, Gross/Micro L5, Gross/Micro L4/2, H [...] [id number] Received: 05/16/24 Status: LALY Domingoagnes Num: [id number] Spec Type: Surgical Subm Dr: Sivakumar Juárez MD Tissues: A Soft Tissue Mass - Biopsy (HIATAL HERNIA POLYP) B Gastric Biopsy (GASTRIC BX) C Esophagus Biopsy (ESOPHAGUS BX) Procedures: HE/8, Gross/Micro L5, Gross/Micro L4/2, H PYLORI/2 -------- Patient: Jose LuisYousuf V [id number] (Continued) -------- Specimen: [id number] Received: 05/16/24 (Continued) Signed (signature on file) Allison Chi MD 05/20/24 1410 -------- Specimen: [id number] Received: 05/16/24 Status: LALY Dougherty Num: [id number] Spec Type: Surgical Subm Dr: Sivakumar Juárez MD Tissues: A Soft Tissue Mass - Biopsy (HIATAL HERNIA POLYP) B Gastric Biopsy (GASTRIC BX) C Esophagus Biopsy (ESOPHAGUS BX) Procedures: HE/8, Gross/Micro L5, Gross/Micro L4/2, H PYLORI/2 -------- Patient: Jose LuisYousuf V [id number] (Continued) -------- Specimen: [id number] Received: 05/16/24 (Continued) [...] specimen entirely submitted in A2. (2, ns, 331 A)JG Part B is received in formalin labeled with the patients name, date of , and gastric BX are 2 burr-mac, focally erythematous, friable, 0.3 cm each in greatest dimension tissue bits. (1, ns, B)JG Part See is received in formalin labeled with the patients name, date of , and esophagus BX are 2 pale mac, focally erythematous, feathery, 0.1 to 0.3 cm in greatest dimension tissue bits. The specimen is entirely submitted in a single cassette. (1, ns, 607 C) CPT Codes 48692v7, 39933 -------- -------- Specimen: [id number] Received: 05/16/24 Status: LALY Dougherty Num: [id number] Spec Type: Surgical Subm Dr: Sivakumar Juárez MD Tissues: A Soft Tissue Mass - Biopsy (HIATAL HERNIA POLYP) B Gastric Biopsy (GASTRIC BX) C Esophagus Biopsy (ESOPHAGUS BX) Procedures: HE/8, Gross/Micro L5, Gross/Micro L4/2, H PYLORI/2 -------- Patient: Yousuf Amaya V F01 (more content not included)... Normal [facility] ALL BASIC METABOLIC PANELon 01-25-2024 Anion gap [Moles/Vol] 14.2 mmol/L [facility] Calcium [Mass/Vol] 9.4 mg/dL 8.5 - 10. 1 mg/dL [facility] Chloride [Moles/Vol] 101 mmol/L 98 - 10 7 mmol/L [facility] CO2 [Moles/Vol] 26.3 mmol/L 21.0 - 32.0 mmol/L [facility] Creatinine [Mass/Vol] 1.18 mg/dL High 0.55 - 1.02 mg/dL [facility] GFR/1.73 sq M.predicted CKD-EPI (S/P/Bld) [Vol rate/Area] 56 Low >=60 mL/min/1.73m 2 [facility] Glucose [Mass/Vol] 108 mg/dL High 74 - 106 mg/dL [facility] Interpretation and review of laboratory results Abnormal [facility] Potassium [Moles/Vol] 3.5 mmol/L 3.5 - 5.1 mmol/L [facility] Sodium [Moles/Vol] 138 mmol/L 136 - 145 mmol/L [facility] EGFR-NON AF COMORAN 46 Low >=60 mL/min/1.73m 2 [facility] Urea nitrogen [Mass/Vol] 17.0 mg/dL 7.0 - 18.0 mg/dL [facility] Urea nitrogen/Creatinine [Mass ratio] 14.4 mg/mg [facility] ALL CBC WITH AUTO DIFFon BASOPHILS ABSOLUTE AUTO 0.0 [facility] Basophils/100 WBC (Bld) 0.4 % 0.2 - 2.0 % [facility] Eosinophils/100 WBC (Bld) 1.8 % 0.9 - 7.0 % [facility] Erythrocyte distribution width (RBC) [Ratio] 14.3 % 11.0 - 15.0 % [facility] Hematocrit (Bld) [Volume fraction] 40.3 % 36.0 - 48.0 % [facility] Hemoglobin (Bld) [Mass/Vol] 12.7 g/dL 12.0 - 16.0 g/dL [facility] IMMATURE GRANULOCYTES ABS AUTO 0.01 [facility] Immature granulocytes/100 WBC (Bld) 0.1 % 0.0 - 0.5 % [facility] Interpretation and review of laboratory results Abnormal [facility] LYMPHOCYTES ABSOLUTE AUTO 2.4 [facility] Lymphocytes/100 WBC (Bld) 32.9 % 20.5 - 60.0 % [facility] MCH (RBC) [Entitic mass] 30.0 pg 26.7 - 34.0 pg [facility] [facility] MCHC (RBC) [Mass/Vol] 31.5 g/dL 29.9 - 35.2 g/dL [facility] MCV (RBC) [Entitic vol] 95.0 fL 81.0 - 99.0 fL [facility] MONOCYTES ABSOLUTE AUTO 0.4 [facility] Monocytes/100 WBC (Bld) 6.0 % 1.7 - 12.0 % [facility] NEUTROPHILS ABSOLUTE AUTO 4.3 [facility] Neutrophils/100 WBC (Bld) 58.8 % 43.0 - 75.0 % [facility] Platelet mean volume (Bld) [Entitic vol] 8.6 fL Low 9.5 - 13.5 fL [facility] EO # 0.1 [facility] PLT 386 [facility] RBC 4.24 [facility] WBC 7.4 [facility] CLINISYNC [facility] MG MAMM SCREEN 3D HOLLY CADon 10-20-2021 MG MAMM SCREEN 3D HOLLY CAD Patient: YOUSUF AMAYA V. Exam Date: 10/20/2021 : 1960 Gender:F Ordering : DR NELLY ZEE M.D. Admission #: [id number] Family : Order #: [id number] CLICK HERE TO VIEW EXAM RADIOLOGY REPORT [...] Treatments None Family Cancers None LOCATION: [facility] BREAST COMPOSITION: Scattered areas fibroglandular density. [...] MD on 10/20/2021 at 09:58 Normal [facility] TSH w/ Reflex to Free T4on 0 09-07-2021 TSH 1.990 uIU/mL Normal 0.400-4.500 [facility] Comment on above: Performed By: #### T SH reflex FT4 #### [facility] [address], [place] [id number] Complete Blood Count with Au to Diffon 07-27-2021 Basophils (Bld) [#/Vol] 0.05 10*3/uL Normal 0.00-0.20 [facility] Comment on above: Performed By: #### L IPD, TSH reflex FT4, CMP, FT4, CBCAD #### [facility] [address], [place] [id number] Basophils/100 WBC (Bld) 0.9 % Normal [facility] Comment on above: Performed By: #### L IPD, TSH reflex FT4, CMP, FT4, CBCAD #### [facility] [address], [place] [id number] Eosinophils (Bld) [#/Vol] 0.41 10*3/uL Normal 0.02-0.50 [facility] Specialist Comment on above: Performed By: #### L IPD, TSH reflex FT4, CMP, FT4, CBCAD #### [facility] [address], [place] [id number] Eosinophils/100 WBC (Bld) 7.2 % Normal [facility] Comment on above: Performed By: #### L IPD, TSH reflex FT4, CMP, FT4, CBCAD #### [facility] [address], [place] [id number] Erythrocyte distribution width (RBC) [Ratio] 13.4 % Normal 11.0-15.0 [facility] Comment on above: Performed By: #### L IPD, TSH reflex FT4, CMP, FT4, CBCAD #### [facility] [address], [place] [id number] Hematocrit (Bld) [Volume fraction] 41.2 % Normal 35.0-47.0 [facility] Specialist Comment on above: Performed By: #### L IPD, TSH reflex FT4, CMP, FT4, CBCAD #### [facility] [address], [place] [id number] Hemoglobin (Bld) [Mass/Vol] 13.1 g/dL Normal 11.6-15.5 [facility] Comment on above: Performed By: #### L IPD, TSH reflex FT4, CMP, FT4, CBCAD #### [facility] [address], [place] [id number] Lymphocytes (Bld) [#/Vol] 1.8 10*3/uL Normal 0.9-3.9 [facility] Comment on above: Performed By: #### L IPD, TSH reflex FT4, CMP, FT4, CBCAD #### [facility] [address], [place] [id number] Lymphocytes/100 WBC (Bld) 31.8 % Normal [facility] Comment on above: Performed By: #### L IPD, TSH reflex FT4, CMP, FT4, CBCAD #### [facility] [address], [place] [id number] MCH (RBC) [Entitic mass] 29.3 pg Normal 27.0-33.0 [facility] Comment on above: Performed By: #### L IPD, TSH reflex FT4, CMP, FT4, CBCAD #### [facility] [address], [place] [id number] MCHC (RBC) [Mass/Vol] 31.8 g/dL Low 32.0-36.0 [facility] Comment on above: Performed By: #### L IPD, TSH reflex FT4, CMP, FT4, CBCAD #### [facility] [address], [place] [id number] MCV (RBC) [Entitic vol] 92 fL Normal 80-100 [facility] Specialist Comment on above: Performed By: #### L IPD, TSH reflex FT4, CMP, FT4, CBCAD #### [facility] [address], [place] [id number] Monocytes (Bld) [#/Vol] 0.5 10*3/uL Normal 0.2-0.9 [facility] Specialist Comment on above: Performed By: #### L IPD, TSH reflex FT4, CMP, FT4, CBCAD #### [facility] [address], [place] [id number] Monocytes/100 WBC (Bld) 8.1 % Normal [facility] Specialist Comment on above: Performed By: #### L IPD, TSH reflex FT4, CMP, FT4, CBCAD #### [facility] [address], [place] [id number] Neutrophils (Bld) [#/Vol] 3.0 10*3/uL Normal 1.5-7.8 [facility] Specialist Comment on above: Performed By: #### L IPD, TSH reflex FT4, CMP, FT4, CBCAD #### [facility] [address], [place] [id number] Neutrophils/100 WBC (Bld) 51.6 % Normal [facility] Specialist Comment on above: Performed By: #### L IPD, TSH reflex FT4, CMP, FT4, CBCAD #### [facility] [address], [place] [id number] Platelet mean volume (Bld) [Entitic vol] 9.50 fL Normal 7.50-12.50 [facility] Specialist Comment on above: Performed By: #### L IPD, TSH reflex FT4, CMP, FT4, CBCAD #### [facility] [address], [place] [id number] Platelets (Bld) [#/Vol] 367 10*3/uL Normal 140-400 [facility] Specialist Comment on above: Performed By: #### L IPD, TSH reflex FT4, CMP, FT4, CBCAD #### [facility] [address], [place] [id number] RBC (Bld) [#/Vol] 4.47 10*6/uL Normal 3.90-5.20 [facility] Stop Att[facility] Comment on above: Performed By: #### L IPD, TSH reflex FT4, CMP, FT4, CBCAD #### [facility] [address], [place] [id number] RDW-SD 45.9 fL Normal 37.0-50.0 [facility] Stop Att[facility] Comment on above: Performed By: #### L IPD, TSH reflex FT4, CMP, FT4, CBCAD #### [facility] [address], [place] [id number] WBC (Bld) [#/Vol] 5.7 10*3/uL Normal 3.8-11.0 [facility] Stop Attacher Comment on above: Performed By: #### L IPD, TSH reflex FT4, CMP, FT4, CBCAD #### [facility] [address], [place] [id number] Comprehensive Metabolic Pane [facility] 07-27-2021 Albumin [Mass/Vol] 4.5 g/dL Normal 3.6-5.1 [facility] Stop Attacher Comment on above: Performed By: #### L IPD, TSH reflex FT4, CMP, FT4, CBCAD #### [facility] [address], [place] [id number] Albumin/Globulin [Mass ratio] 1.7 {ratio} Normal 1.0-2.5 [facility] Att[facility] Comment on above: Performed By: #### L IPD, TSH reflex FT4, CMP, FT4, CBCAD #### [facility] [address], [place] [id number] ALP [Catalytic activity/Vol] 89 U/L Normal 35-119 [facility] Att[facility] Comment on above: Performed By: #### L IPD, TSH reflex FT4, CMP, FT4, CBCAD #### [facility] [address], [place] [id number] ALT [Catalytic activity/Vol] 27 U/L Normal 6-33 [facility] Stop Attacher Comment on above: Result Comment: 03/24 Female reference range changed. Performed By: #### L IPD, TSH reflex FT4, CMP, FT4, CBCAD #### [facility] [address], [place] [id number] Anion gap [Moles/Vol] 18 mmol/L Normal 12-20 [facility] Specialist Comment on above: Result Comment: Effblanca ctive 04/29/2019 reference range changed. Performed By: #### L IPD, TSH reflex FT4, CMP, FT4, CBCAD #### [facility] [address], [place] [id number] AST [Catalytic activity/Vol] 25 U/L Normal 9-34 [facility] Comment on above: Performed By: #### L IPD, TSH reflex FT4, CMP, FT4, CBCAD #### [facility] [address], [place] [id number] BUN/CREA 22 Ratio Normal 6-22 [facility] Comment on above: Performed By: #### L IPD, TSH reflex FT4, CMP, FT4, CBCAD #### [facility] [address], [place] [id number] Calcium [Mass/Vol] 9.5 mg/dL Normal 8.6-10.2 [facility] Comment on above: Performed By: #### L IPD, TSH reflex FT4, CMP, FT4, CBCAD #### [facility] [address], [place] [id number] Chloride [Moles/Vol] 102 mmol/L Normal 98-107 [facility] Comment on above: Performed By: #### L IPD, TSH reflex FT4, CMP, FT4, CBCAD #### [facility] [address], [place] [id number] CO2 [Moles/Vol] 26 mmol/L Normal 20-31 [facility] Comment on above: Performed By: #### L IPD, TSH reflex FT4, CMP, FT4, CBCAD #### [facility] [address], [place] [id number] Creatinine [Mass/Vol] 1.0 mg/dL Normal 0.6-1.4 [facility] Specialist Comment on above: Performed By: #### L IPD, TSH reflex FT4, CMP, FT4, CBCAD #### [facility] [address], [place] [id number] eGFRAA 72 mL/min/1.73m2 Normal >60 [facility] Specialist Comment on above: Performed By: #### L IPD, TSH reflex FT4, CMP, FT4, CBCAD #### [facility] [address], [place] [id number] eGFRNAA 60 mL/min/1.73m2 Low >60 [facility] Specialist Comment on above: Performed By: #### L IPD, TSH reflex FT4, CMP, FT4, CBCAD #### [facility] [address], [place] [id number] Globulin (S) [Mass/Vol] 2.6 g/dL Normal 1.9-3.7 [facility] Comment on above: Performed By: #### L IPD, TSH reflex FT4, CMP, FT4, CBCAD #### [facility] [address], [place] [id number] Glucose [Mass/Vol] 110 mg/dL High 65-99 [facility] Comment on above: Result Comment: For FASTING Glucose --- ADA reference ranges: Normal 65-99 mg/dl Prediabetes 100-125 Diabetes >/= 126 Performed By: #### L IPD, TSH reflex FT4, CMP, FT4, CBCAD #### [facility] [address], [place] [id number] Potassium [Moles/Vol] 3.5 mmol/L Normal 3.5-5.5 [facility] Stop Attacher Comment on above: Performed By: #### L IPD, TSH reflex FT4, CMP, FT4, CBCAD #### [facility] [address], [place] [id number] Protein [Mass/Vol] 7.1 g/dL Normal 6.1-8.1 [facility] Comment on above: Performed By: #### L IPD, TSH reflex FT4, CMP, FT4, CBCAD #### [facility] [address], [place] [id number] Sodium [Moles/Vol] 142 mmol/L Normal 135-146 [facility] Comment on above: Performed By: #### L IPD, TSH reflex FT4, CMP, FT4, CBCAD #### [facility] [address], [place] [id number] TBIL <0.3 Normal [facility] Stop Attacher Comment on above: Performed By: #### L IPD, TSH reflex FT4, CMP, FT4, CBCAD #### [facility] [address], [place] [id number] Urea nitrogen [Mass/Vol] 21 mg/dL Normal 7-25 [facility] Stop Attacher Comment on above: Performed By: #### L IPD, TSH reflex FT4, CMP, FT4, CBCAD #### [facility] [address], [place] [id number] Free T4on 07-27-2021 Free T4 [Mass/Vol] 1.17 ng/dL Normal 0.80-1.80 [facility] Stop Attacher Comment on above: Performed By: #### L IPD, TSH reflex FT4, CMP, FT4, CBCAD #### [facility] [address], [place] [id number] Lipid Panelon 07-27-2021 Cholesterol [Mass/Vol] 256 mg/dL High 125-200 [facility] Stop Attacher Comment on above: Result Comment: Low risk < 200mg/dL Borderline risk 201-239 mg/dl High risk > or equal to 240 Performed By: #### L IPD, TSH reflex FT4, CMP, FT4, CBCAD #### [facility] [address], [place] [id number] Cholesterol in HDL [Mass/Vol] 68 mg/dL Normal >40 [facility] Stop Attacher Comment on above: Result Comment: High Cardiovascular Risk HDL <40 mg/dL Low Cardiovascular Risk HDL > or equal to 60 mg/dl Performed By: #### L IPD, TSH reflex FT4, CMP, FT4, CBCAD #### [facility] [address], [place] [id number] Cholesterol in LDL [Mass/Vol] 170 mg/dL Normal [facility] Stop Attacher Comment on above: Result Comment: LDL ATP III CLASSIFICATION LDL less than 100 mg/dl Optimal LDL 100-129 mg/dl Near or above optimal LDL 130-159 Borderline high LDL 160-189 High LDL greater than 189 mg/dl Very High Performed By: #### L IPD, TSH reflex FT4, CMP, FT4, CBCAD #### [facility] [address], [place] [id number] Cholesterol in VLDL [Mass/Vol] 18 mg/dL Normal [facility] Comment on above: Performed By: #### L IPD, TSH reflex FT4, CMP, FT4, CBCAD #### [facility] [address], [place] [id number] Cholesterol.total/Ch olesterol in HDL [Mass ratio] 4 {ratio} Normal [facility] Comment on above: Performed By: #### L IPD, TSH reflex FT4, CMP, FT4, CBCAD #### [facility] [address], [place] [id number] Triglyceride [Mass/Vol] 89 mg/dL Normal 30-150 [facility] Specialist Comment on above: Result Comment: TRIG ATPIII CLASSIFICATIONS TRIG less than 150 mg/dl Normal TRIG 150-199 mg/dl Borderline High TRIG 200-500 mg/dl High TRIG greather than 500 mg/dl Very High Performed By: #### L IPD, TSH reflex FT4, CMP, FT4, CBCAD #### [facility] [address], [place] [id number] TSH w/ Reflex to Free T4on 0 07-27-2021 FT4 reflex Free T4 Normal [facility] Comment on above: Performed By: #### L IPD, TSH reflex FT4, CMP, FT4, CBCAD #### [facility] [address], [place] [id number] TSH 6.030 uIU/mL High 0.400-4.500 [facility] Stop Attacher Comment on above: Performed By: #### L IPD, TSH reflex FT4, CMP, FT4, CBCAD #### [facility] [address], [place] [id number] Covid-19 PCR (CVDTB)on SARS-CoV-2 (COVID-19) RNA IVAN+probe Ql (Unsp spec) Not detected Normal NOT DETECTED [facility] Comment on above: Result Comment: This test is not yet approved or cleared by the [place] FDA. When there are no FDA-approved or cleared tests available, and other criteria are met, FDA can make tests available under an emergency access mechanism called an Emergency Use Authorization (EUA). The EUA for this test is supported by the [employer] of Health and Human Service's (HHS's) declaration [...] consistent with SARS-CoV-2. Performed By: #### [facility] #### [facility] [address] [place] [address] Dr. Dontae Toth Vital Signs Date Time Vital Sign Value Performing Clinician Facility 12-13-2024 [id number] Body height 154.94 cm Nelly Zee MD Work Phone: [facility] 12-13-2024 13:07-0400 Body mass index (BMI) [Ratio] 29.2 kg/m2 Nelly Zee MD Work Phone: [facility] 12-13-2024 13:07-0400 Body weight 70.3 kg Nelly Zee MD Work Phone: [facility] 12-13-2024 13:07-0400 Diastolic blood pressure 76 mm[Hg] Nelly Zee MD Work Phone: [facility] 12-13-2024 13:07-0400 Systolic blood pressure 117 mm[Hg] Nelly Zee MD Work Phone: [facility] 11-12-2024 08:07-0400 Body height 154.9 cm Franny GILES Work Phone: [facility] 11-12-2024 08:07-0400 Body mass index (BMI) [Ratio] 29.48 kg/m2 Franny Hemmer PA Work Phone: [facility] 11-12-2024 08:07-0400 Body weight 70.76 kg Franny Hemmer PA Work Phone: [facility] 11-12-2024 08:07-0400 Diastolic blood pressure 78 mm[Hg] Franny Hemmer PA Work Phone: [facility] 11-12-2024 08:07-0400 Heart rate 91 /min Franny Hemmer PA Work Phone: [facility] 11-12-2024 08:07-0400 Respiratory rate 16 /min Franny Hemmer PA Work Phone: [facility] 11-12-2024 08:07-0400 SaO2% (BldA) [Mass fraction] 95 % Franny Hemmer PA Work Phone: [facility] 11-12-2024 08:07-0400 Systolic blood pressure 116 mm[Hg] Franny Hemmer PA Work Phone: [facility] 08-20-2024 08:58-0400 Body height 154.9 cm Franny Hemmer PA Work Phone: [facility] 08-20-2024 08:58-0400 Body mass index (BMI) [Ratio] 29.32 kg/m2 Franny Hemmer PA Work Phone: [facility] 08-20-2024 08:58-0400 Body weight 70.4 kg Franny Hemmer PA Work Phone: [facility] 08-20-2024 08:58-0400 Diastolic blood pressure 82 mm[Hg] Franny Hemmer PA Work Phone: [facility] 08-20-2024 08:58-0400 Heart rate 93 /min Franny Hemmer PA Work Phone: [facility] 08-20-2024 08:58-0400 Respiratory rate 16 /min Franny Hemmer PA Work Phone: [facility] 08-20-2024 08:58-0400 SaO2% (BldA) [Mass fraction] 95 % Franny Hemmer PA Work Phone: [facility] 08-20-2024 08:58-0400 Systolic blood pressure 122 mm[Hg] Franny Hemmer PA Work Phone: [facility] 07-18-2024 08:33-0400 Diastolic blood pressure 84 mm[Hg] Donaldo Mills MD [facility] 07-18-2024 08:33-0400 Systolic blood pressure 124 mm[Hg] Donaldo Mills MD [facility] 06-10-2024 11:40-0500 Body height 154.9 cm Franny Hemmer PA Work Phone: [facility] 06-10-2024 11:40-0500 Body mass index (BMI) [Ratio] 29.89 kg/m2 Franny Hemmer PA Work Phone: [facility] 06-10-2024 11:40-0500 Body weight 71.76 kg Franny Hemmer PA Work Phone: [facility] 06-10-2024 11:40-0500 Diastolic blood pressure 72 mm[Hg] Franny Hemmer PA Work Phone: [facility] 06-10-2024 11:40-0500 Heart rate 87 /min Franyn Hemmer PA Work Phone: [facility] 06-10-2024 11:40-0500 Respiratory rate 16 /min Franny Hemmer PA Work Phone: [facility] 06-10-2024 11:40-0500 SaO2% (BldA) [Mass fraction] 96 % Franny Hemmer PA Work Phone: [facility] 06-10-2024 11:40-0500 Systolic blood pressure 108 mm[Hg] Franny Hemmer PA Work Phone: [facility] 05-16-2024 14:25-0500 Diastolic blood pressure 65 mm[Hg] Nelly Zee MD Work Phone: [facility] 05-16-2024 14:25-0500 Heart rate 75 /min Nelly Zee MD Work Phone: [facility] 05-16-2024 14:25-0500 Respiratory rate 16 /min Nelly Zee MD Work Phone: [facility] 05-16-2024 14:25-0500 SaO2% (BldA) [Mass fraction] 96 % Nelly Zee MD Work Phone: [facility] 05-16-2024 14:25-0500 Systolic blood pressure 115 mm[Hg] Nelly Zee MD Work Phone: [facility] 05-16-2024 12:12-0500 Body height 154.94 cm Nelly Zee MD Work Phone: [facility] 05-16-2024 12:12-0500 Body weight 68.03 kg Nelly Zee MD Work Phone: [facility] 04-02-2024 10:32-0500 Body height 154.9 cm Franny Hemmer PA Work Phone: [facility] 04-02-2024 10:32-0500 Body mass index (BMI) [Ratio] 29.02 kg/m2 Franny Hemmer PA Work Phone: [facility] 04-02-2024 10:32-0500 Body weight 69.67 kg Franny Hemmer PA Work Phone: [facility] 04-02-2024 10:32-0500 Diastolic blood pressure 88 mm[Hg] Franny Hemmer PA Work Phone: [facility] 04-02-2024 10:32-0500 Heart rate 88 /min Franny Hemmer PA Work Phone: [facility] 04-02-2024 10:32-0500 Respiratory rate 16 /min Franny Hemmer PA Work Phone: [facility] 04-02-2024 10:32-0500 SaO2% (BldA) [Mass fraction] 96 % Franny Hemmer PA Work Phone: [facility] 04-02-2024 10:32-0500 Systolic blood pressure 124 mm[Hg] Frnany Hemmer PA Work Phone: [facility] 01-10-2024 16:38-0400 Body height 154.9 cm Franny Hemmer PA Work Phone: [facility] 01-10-2024 16:38-0400 Body mass index (BMI) [Ratio] 28 kg/m2 Franny Hemmer PA Work Phone: [facility] 01-10-2024 16:38-0400 Body weight 67.22 kg Franny Hemmer PA Work Phone: [facility] 01-10-2024 16:38-0400 Diastolic blood pressure 72 mm[Hg] Franny Hemmer PA Work Phone: [facility] 01-10-2024 16:38-0400 Heart rate 85 /min Franny Hemmer PA Work Phone: [facility] 01-10-2024 16:38-0400 Respiratory rate 16 /min Franny Hemmer PA Work Phone: [facility] 01-10-2024 16:38-0400 SaO2% (BldA) [Mass fraction] 97 % Franny Hemmer PA Work Phone: [facility] 01-10-2024 16:38-0400 Systolic blood pressure 116 mm[Hg] Franny Hemmer PA Work Phone: [facility] Healthcare Encounters Encounter Date Encounter Type Care Provider Facility Start: 12-13-2024 End: 12-13-2024 ambulatory Nelly Zee MD Work Phone: [facility] Work Phone: Start: 12-13-2024 End: 12-13-2024 [facility] Work Phone: Start: 11-13-2024 End: 11-13-2024 Orders Only Franny Mcdermott PA Work Phone: [facility] Comment on above: Other chronic pain ( Primary Dx) Start: 11-12-2024 End: 11-12-2024 Bamboo flowsheet Franny Mcdermott PA Work Phone: [facility] Start: 11-12-2024 End: 11-12-2024 Bamboo flowsheet Franny Mcdermott PA Work Phone: [facility] Start: 11-12-2024 End: 11-12-2024 Clinisync Result Encounter Franny Mcdermott PA Work Phone: [facility] Unsolicited Start: 11-12-2024 End: 11-12-2024 Office outpatient visit 25 minutes Franny Mcdermott PA Work Phone: [facility] Comment on above: Stage 3b chronic kid ayush disease (CMS-HCC) (Primary Dx); Degeneration of intervertebral disc of lumbar region with discogenic back pain; Paresthesia of left leg; Chronic left hip pain; Generalized anxiety disorder Start: 11-12-2024 End: 11-12-2024 ambulatory FRANNY MCDERMOTT Not Available Start: 11-06-2024 End: 11-06-2024 Clinisync Result Encounter Nelly Zee MD Work Phone: [facility] Unsolicited Start: 11-06-2024 End: 11-06-2024 Clinisync Result Encounter Nelly Zee MD Work Phone: [facility] Unsolicited Start: 08-20-2024 End: 08-20-2024 Bamboo flowsheet Franny [...] 07-18-2024 Office outpatient visit 15 minutes Donaldo Loi Camara Work Phone: [facility] Start: 07-18-2024 ambulatory Donaldo Al J[facility] Start: 06-14-2024 End: 06-14-2024 Clinisync Result Encounter Frannymilan Mcdermott PA Work Phone: [facility] Unsolicited Start: 06-14-2024 End: 06-14-2024 Clinisync Result Encounter Frannymilan Mcdermott PA Work [...] Available Start: 05-29-2024 End: 05-29-2024 Telephone encounter Nelly Zee MD Work Phone: [facility] Start: 05-16-2024 Non-patient / Non-visit Nelly Zee MD Work Phone: [facility] Work Phone: Start: 05-16-2024 End: 05-16-2024 Admission to same day surgery center Nelly Zee MD Work Phone: [facility] Work Phone: Start: 05-16-2024 End: 05-16-2024 ambulatory Nelly Zee MD Work Phone: [facility] Work Phone: Start: 04-02-2024 End: 04-02-2024 [...] visit 15 minutes Donaldo Mills Work Phone: [facility] Start: 01-19-2024 ambulatory Donaldo Mills [facility] Start: 01-16-2024 End: 01-16-2024 Clinisync Result [...] [facility] Comment on above: Medicare annual [facility] visit, initial (Primary Dx); ACP (advance care [...] GILES Work Phone: [facility] Start: 02-15-2023 End: 02-15-2023 Office outpatient visit 15 minutes José Miguel Elliott Work Phone: [facility] Start: 02-10-2022 End: 02-10-2022 Office outpatient visit 15 minutes José Miguel Elliott Work Phone: [facility] Start: 10-20-2021 End: 10-21-[address] NELLY ZEE Facility:[facility] Start: 07-21-2021 End: 07-21-2021 [employer] Work Phone: [facility] Start: 03-24-2021 End: 03-24-2021 [facility] [employer] Work Phone: [facility] Start: 03-22-2021 End: 03-23-[address] NELLY ZEE Facility:[facility] Start: 02-22-2021 End: 02-23-[address] FRANNY MCDERMOTT Facility:[facility] Start: 01-22-2021 End: 01-22-[address] NELLY ZEE Facility:[facility] Start: 11-25-2020 End: 11-25-2020 Will Irby Work Phone: [facility] Start: 12-04-2019 End: 12-04-2019 Will Irby Work Phone: [facility] Start: 12-12-2018 End: 12-12-2018 Will Irby Work Phone: [facility] Start: 02-05-2018 End: 02-05-2018 Odalis Alarcon Work Phone: [facility] Start: 11-01-2017 End: 11-01-2017 Will Irby Work Phone: [facility] Start: 10-26-2016 End: 10-26-2016 Will Irby Work Phone: [facility] Start: 11-11-2015 End: 11-11-2015 Will Irby Work Phone: [facility] Start: 11-19-2014 End: 11-19-2014 Will Irby Work Phone: [facility] Start: 03-12-2014 End: 03-12-2014 Office outpatient new 45 minutes Will Irby Work Phone: [facility] Procedures Date Procedure Procedure Detail Performing Clinician Start: 11-12-2024 XR HIP LT MIN 2V Franny Thomas Hemmer PA Work Phone: Start: 11-06-2024 MM TOMOSYNTHESIS SCREENING BI Nelly Owen MD Work Phone: Start: 11-06-2024 Mammography Nelly Zee MD Work Phone: Start: 07-18-2024 End: 07-18-2024 Computerized ophthalmic imaging retina Donaldo Mills Start: 06-14-2024 XR KNEE HOLLY 3V Franny Mcdermott PA Work Phone: Start: 06-14-2024 ALL BASIC METABOLIC PANEL Franny Mcdermott PA Work Phone: Start: 05-16-2024 Esophagogastroduodenoscopy Nelly Zee MD Work Phone: Start: 01-25-2024 ALL [...] total hysterectomy History of total hysterectomy Franny Mcdermott PA Work Phone: Start: 07-21-2021 End: 07-21-2021 Medical Records Copied Donaldo Mills MD Start: 03-24-2021 End: 03-24-2021 Medical Records Copied Donaldo Mills MD Start: 11-25-2020 End: 08-04-2021 Computerized ophthalmic imaging retina Donaldo Mills MD Start: 12-04-2019 End: 12-04-2019 Computerized ophthalmic imaging retina Donaldo Mills MD Start: 12-12-2018 End: 12-12-2018 Computerized ophthalmic imaging retina Donaldo Mills MD Start: 11-21-2018 Kassy GILES Work Phone: Start: 02-05-2018 End: 02-05-2018 [...] Screening for malign ant neoplasm of colon [facility] Start: 11-06-2025 Screening for malign ant neoplasm of breast Mammogram [facility] Start: 02-17-2025 Ana Amaya goran 6-8mo DFE W OCT (7) [facility] Work Phone: Start: 01-09-2025 Medicare Annual Wellness (AWV) Medicare Annual Wellness (AWV) [facility] Start: 12-23-2024 Influenza vaccination Influenza Vacc ine (#1) [facility] Start: 11-12-2024 End: 11-12-2025 Cobalamin (Vitamin B12) [Mass/volume] in Serum or Plasma Vitamin B12 Lab Routine Stage 3b chronic kidney disease (CMS-HCC) Paresthesia of left leg Expected: 11/12/2024 (Approximate), Expires: 11/12/2025 [facility] Comment on above: Expected: 11/12/2024 (Approximate), Expires: 11/12/2025 Start: 11-12-2024 End: 11-12-2025 Folate [Mass/volume] in Serum or Plasma Folate Lab Routine Stage 3b chronic kidney disease (CMS-HCC) Paresthesia of left leg Expected: 11/12/2024 (Approximate), Expires: 11/12/2025 [facility] Comment on above: Expected: 11/12/2024 (Approximate), Expires: 11/12/2025 Start: 11-12-2024 End: 11-12-2025 XR Hip - left 3 Views XR hip left 2 or 3 views Imaging Routine Chronic left hip pain Expected: 11/12/2024, Expires: 11/12/2025 [facility] Work Phone: Comment on above: Expected: 11/12/2024 , Expires: 11/12/2025 Start: 11-12-2024 End: 11-12-2024 Patient encounter procedure [facility] Comment on above: Arrived Start: 10-29-2024 Screening for malign ant neoplasm of breast Mammogram [facility] Start: 08-20-2024 End: 08-20-2024 Patient encounter procedure 08/20/2024 9:00 AM EDT Office Visit [facility] [address] [facility] [address] [place] [address] Franny Mcdermott PA [address] [facility] [address] [place] [address] Arrived [facility] Comment on above: [...] [facility] [address] [place] [address] Franny Mcdermott, PA [address] [place] [address] Arrived [facility] Comment on above: Arrived Start: 06-06-2024 End: 06-06-2024 Patient encounter procedure 06/06/2024 9:00 AM EST Office Visit [facility] [address] [place] [address] Franny Mcdermott, PA [address] [place] [address] [facility] Start: 05-16-2024 [facility] Start: 04-02-2024 End: 04-02-2024 Patient encounter procedure 04/02/2024 10:30 AM EST Office Visit [facility] [address] [place] [address] Franny Mcdermott, PA [address] [place] [address] Arrived [facility] Comment on above: [...] [facility] [address] [place] [address] Franny Mcdermott, PA [address] [place] [address] Arrived [facility] Comment on above: Arrived Start: 01-10-2024 End: 01-09-2025 CBC W Auto Differential panel - Blood CBC and differential Lab Routine Medicare annual wellness visit, initial Benign hypertension (CMS/HCC) Thrombocytosis Expected: 01/10/2024 (Approximate), Expires: 01/09/2025 [facility] Work Phone: Comment on above: Expected: 01/10/2024 (Approximate), Expires: 01/09/2025 Start: 01-10-2024 End: 01-09-2025 Comprehensive metabolic 2000 panel - Serum or Plasma Comprehensive metabolic panel Lab Routine Medicare annual wellness visit, initial Benign hypertension (CMS/HCC) Stage 3a chronic kidney disease (HCC) (CMS/HCC) Hypokalemia Expected: 01/10/2024 (Approximate), Expires: 01/09/2025 [facility] Comment on above: Expected: 01/10/2024 (Approximate), Expires: 01/09/2025 Start: 01-10-2024 End: 01-09-2025 HEPATITIS C AB W/RFL RNS, PCR W/RFL GENOTYPE,LIPA HEPATITIS C AB W/RFL RNS, PCR W/RFL GENOTYPE,LIPA Lab Routine Medicare annual wellness visit, initial Other problems related to lifestyle Expected: 01/10/2024 (Approximate), Expires: 01/09/2025 [facility] Comment on above: Expected: 01/10/2024 (Approximate), Expires: 01/09/2025 Start: 01-10-2024 End: 01-09-2025 Lipid 1996 panel - Serum or Plasma Lipid panel Lab Routine Medicare annual wellness visit, initial Benign hypertension (CMS/HCC) Elevated LDL cholesterol level (CMS/HCC) Expected: 01/10/2024 (Approximate), Expires: 01/09/2025 [facility] Comment on above: Expected: 01/10/2024 (Approximate), Expires: 01/09/2025 Start: 01-10-2024 End: 01-09-2025 TSH W/REFLEX TO FT4 TSH W/REFLEX TO FT4 Lab Routine Medicare annual wellness visit, initial Acquired hypothyroidism (CMS/HCC) Expected: 01/10/2024 (Approximate), Expires: 01/09/2025 [facility] Comment on above: Expected: 01/10/2024 (Approximate), Expires: 01/09/2025 Start: 12-24-2023 Influenza vaccination Influenza Vacc ine (#1) [facility] Start: 11-16-2023 Medicare Annual Wellness (AWV) Medicare Annual Wellness (AWV) [facility] Start: 11-25-2020 Smoking cessation education Tobacco cessation counseling [facility] Start: 1960 Screening for malign ant neoplasm of colon [facility] Basic metabolic 1998 panel - Serum or Plasma Basic metabolic panel Lab Routine Stage 3b chronic kidney disease ([facility]-HCC) Ordered: 11/12/2024 [facility] Comment on above: Ordered: 11/12/2024 Patient Education Esophageal Dil ation Esophageal Stricture (DC) Stomach polyps Hiatal hernia - Discharge instructions Know your [facility] Work Phone: Immunizations Immunization Date Immunization Notes Care Provider [facility] 03-01-2024 Seasonal, trivalent, recombinant, injectable influenza vaccine, preservative free Franny GILES Work Phone: [facility] 03-01-2024 influenza virus vacc ine, unspecified formulation Nelly Zee MD Work Phone: [facility] 06-07-2023 RSV, recombinant, pr otein subunit RSVpreF, adjuvant reconstitu, 120mcg/0.5mL, PF (Arexvy) Franny GILES Work Phone: [facility] 12-31-2022 influenza, injectabl e, quadrivalent, preservative free Franny GILES Work Phone: [facility] 12-31-2022 influenza virus vacc ine, unspecified formulation Franny GILES Work Phone: [facility] 02-02-2022 zoster vaccine recombinant Jasmin GILES Work Phone: [facility] 01-20-2022 SARS-CoV-2, Unspecified Ana Laura IGLES Work Phone: [facility] 01-12-2022 influenza, injectabl e, quadrivalent, preservative free Franny Hemmer PA Work Phone: [facility] 12-01-2021 zoster vaccine recombinant K aren Hemmer PA Work Phone: [facility] 02-18-2021 influenza, injectabl e, quadrivalent, preservative free Franny Hemmer PA Work Phone: [facility] 03-21-2020 influenza, injectabl e, quadrivalent, contains preservative Franny Hemmer PA Work Phone: [facility] 03-21-2020 pneumococcal polysaccharide vaccine, 23 valent Franny Hemmer PA Work Phone: [facility] 04-09-2019 tetanus toxoid, redu mayela diphtheria toxoid, and acellular pertussis vaccine, adsorbed Franny Hemmer PA Work Phone: [facility] 01-03-2019 influenza, injectabl e, quadrivalent, preservative free Franny Hemmer PA Work Phone: [facility] 01-03-2019 seasonal influenza, intradermal, preservative free Franny Hemmer PA Work Phone: [facility] 01-25-2018 influenza, injectabl e, quadrivalent, preservative free Franny Hemmer PA Work Phone: [facility] 01-25-2018 seasonal influenza, intradermal, preservative free Franny Hemmer PA Work Phone: [facility] 02-02-2016 influenza, injectabl e, quadrivalent, preservative free Franny Hemmer PA Work Phone: [facility] 02-02-2016 pneumococcal conjuga te vaccine, 13 valent Franny Hemmer PA Work Phone: [facility] 01-23-2016 influenza, seasonal, injectable Donaldo Mills MD [facility] Comment on above: Note: Invalid docume nted admin date was . ; Source: Other Provider 01-23-2016 pneumococcal polysaccharide vaccine, 23 valent Donaldo Mills MD [facility] Comment on above: Note: Invalid docume nted admin date was . ; Source: Other Provider Payers Date Payer Category Payer Self-pay 2024 Unknown [id number] 2023 Medicare ANTHEM MEDICARE ADVANTAGE ANTHEM MEDICARE ADVANTAGE [id number] 2023-Present [address] [place] [address] [id number] 2023 Medicare (Managed Care) S[employer]ENE [employer]ICARE ADVANTAGE [id number] 2023 Unknown [id number] 1960 Unknown [id number] [id number]. 593 1960 Unknown [id number] 2.16.840.1.862876.3.579.2. 593 1960 Unknown [id number] 2.16.840.1.196157.3.579.2. 593 1960 Unknown [id number] 2.16.840.1.779826.3.579.2. 593 1960 Unknown [id number] 2.16.840.1.131234.3.579.2. 1347 1960 Unknown [id number] 2.16.840.1.687586.3.579.2. 1347 1960 Unknown [id number] 2.16.840.1.882994.3.579.2. 1259 1960 Unknown [id number] 2.16.840.1.525233.3.579.2. 1259 1960 Unknown [id number] 2.16.840.1.999092.3.579.2. 9 1960 Unknown [id number] 2.16.840.1.643971.3.579.2. 1258 1960 Unknown [id number] 2.16.840.1.277263.3.579.2. 1259 1959 Unknown [id number] Unknown [id number] [id number]. 531 Social History Date Type Detail Facility Start: 11-14-2022 End: 05-16-2024 Tobacco smoking status UTIS Never smoked tobacco [facility] Start: 11-14-2022 Tobacco use and exposure Smokeless tobacco non-user [facility] Start: 01-10-2024 End: 11-12-2024 Alcoholic beverage intake Current drinker of alcohol [...] Caffeine intak e: 1-2 cups per day [facility] Start: 1960 Sex assigned at Not on file N [facility] Start: 05-16-2024 Sex Patient sex un known (finding) [facility] Start: 1960 Sex Assigned At Female F [facility] Start: 07-18-2024 Alcohol intake (observable entity) Alcohol Use Details [facility] Start: 07-18-2024 Health-related behavior (observable entity) Caffeine Use Details [facility] Start: 07-18-2024 Tobacco use and exposure Non-Smoking Tobacco Use Details [facility] How often do you nee d to have someone help you when you read instructions, pamphlets, or other written material from your doctor or pharmacy [SILS] Sometimes [facility] Sex Female (finding) [facility] NEGATED: Highlighted rowStart: 07-18-2024 Tobacco smoking status NHIS Unknown if ever smoked [facility] NEGATED: Highlighted rowStart: 07-18-2024 History of tobacco use Current non-smoker [facility] Medical Equipment Procedure Code Equipment Code Equipment Origin al Text Equipment Identifier Dates Phacoemulsification of cataract with intraocular lens implantation Posterior-chamber intraocular lens, pseudophakic ()[id number] FDA Start: 06-06-2019 Phacoemulsification of cataract with intraocular lens implantation Posterior-chamber intraocular lens, pseudophakic ()[id number] FDA Start: 11-21-2019 Goals Date Patient Goal Desired Activity /State Functional Status Date Assessment Result Facility 11-12-2024 Patient Health Quest ionnaire 2 item (PHQ-2) [Reported] [facility] 08-20-2024 Patient Health Quest ionnaire 2 item (PHQ-2) [Reported] [facility] Clinical Notes 01-10-2024 to 11-13-2024 CHAN Elizondo - 11/13/2024 9:29 AM CHAN Timmons - 11/12/2024 8:00 AM CHAN Timmons - 08/20/2024 9:00 AM EDT Note Date & Type Note Facility 11-13-2024 History of Presen t illness Narrative Low dose Cymbalta sent in for pt. documented in this encounter [facility] 11-12-2024 History of Presen t illness Narrative Images from the original note were not included. HPI Chronic Kidney Disease Additional comments: She would like a referral to a sea foam kiss maker d/t her kidney disease. Denies having any problems. Last edited by Emilia Flores LPN on 11/12/2024 8:05 AM. Subjective Patient ID: Yousuf Amaya is a 64 y.o. female who presents for back pain. Yousuf is present today for follow up back pain. She was seen for an ER follow up on 08/20/24 and was diagnosed with lumbar strain and was rx'd Prednisone and was advised to take cyclobenzaprine at bedtime as needed, refused PT referral at that appt. MRI completed 11/13/23 with results of mild discogenic changes and significant foraminal stenosis. She feels the pain is getting worse and the pain radiates down her left leg to her left ankle. Continues to do the exercises that Ivan Hurley gave her at PT. Has had EMG and Lumbar MRI in 2023 without significant findings. Is active. Watches her grandson and he keeps her moving. Occasionally has left outer foot swelling Drinks 64 ounces of water a day. Occasionally Propel in her water. One cup of coffee a day. Still taking a potassium supplement. Did not get the repeat lab done that was ordered in May. States her insurance has nurses that recommended she see a Vice President Of News. Those same nurses also told her she needs an updated Colonoscopy, though pt did not think she was due. Wanted to confirm today. Also wants to confirm the age that Mammograms can be discontinued. Over the past 2 weeks, how often have you been bothered by any of the following problems? Little interest or pleasure in doing things: Not at all Feeling down, depressed, or hopeless: Not at all Patient Health Questionnaire-2 Score: 0 Current Outpatient Medications on File Prior to Visit Medication Sig Dispense Refill Multiple Vitamin (multivitamin) tablet Take 1 tablet by mouth Daily albuterol HFA (Ventolin HFA) 90 mcg/act inhaler Inhale 2 puffs every 4 (four) hours if needed for wheezing or shortness of breath 18 g 5 busPIRone (Buspar) 5 MG tablet Take 1 tablet (5 mg) by mouth 2 (two) times a day as needed (Anxiety) 60 tablet 2 cyclobenzaprine (Flexeril) 10 MG tablet Take 10 [...] the same time 100 tablet 3 [DISCONTINUED] chlorhexidine (Peridex) 0.12 % solution Use 15 mL in the mouth or throat if needed for wound care No current facility-administered medications on file prior [...] Brother Past Medical History: Diagnosis Date Asthma (HCC) multiple admits Cataract senile right eye GERD (gastroesophageal reflux disease) Headache, tension-type 07/31/[address] scan 01/25/2018 CT scan of head no acute intracranial abnormality Hx of CT scan 01/25/2018 CT scan of neck no acute fracture after fall Hypertension 09/2021 Numbness 12/2022 Pyriformis syndrome Rotator cuff [...] ARTHROSCOPY Right 2017 [facility] Visit Vitals BP 116/78 Pulse 91 Resp 16 Ht 5' 1 Wt 156 lb SpO2 95% BMI 29.48 kg/m Smoking Status Never BSA 1.75 m Review of Systems Constitutional: Negative for chills, fatigue and fever. Respiratory: Negative for cough, shortness of breath and wheezing. Cardiovascular: Negative for chest pain, palpitations and leg swelling. Gastrointestinal: Negative for abdominal pain, constipation, diarrhea, nausea and vomiting. Musculoskeletal: Positive for back pain. Skin: Negative for rash. Neurological: Positive for numbness. Objective Physical Exam Constitutional: General: She is [...] sounds. No wheezing, rhonchi or rales. Musculoskeletal: Lumbar back: No spasms, tenderness or bony tenderness. Negative right straight leg raise test and negative left straight leg raise test. Left hip: Decreased range of motion (Pain with internal and external rotation, ROM limted at extremes). Skin: General: Skin is warm and dry. Neurological: General: No focal deficit present. Mental Status: She is alert and oriented to person, place, and time. Psychiatric: Mood and Affect: Mood normal. Behavior: Behavior normal. Assessment/Plan Diagnoses and all orders for this visit: Stage 3b chronic kidney disease (CMS-HCC) - Basic metabolic panel - Vitamin B12; Future - Folate; Future Recommended that she start [employer] supplement. She will get an updated BMP today. Start supplement, and then recheck kidney function in three months to see if it has improved. Continue to stay hydrated. Degeneration of intervertebral disc of lumbar region with discogenic back pain MRI from 11/10/2023 showed, Mild discogenic changes with no disc bulge or herniation, no significant central or foraminal stenosis. EMG from 10/31/2023 showed, Normal EMG of the lower extremities. No evidence of lumbar radiculopathy or generalized process such as polyneuropathy. Patient has previously completed PT and continues the HEP. Will further evaluate her left hip and consider alternative treatment options. Paresthesia of left leg - Vitamin B12; Future - Folate; Future Will have patient get a Vitamin B12 and Folate level with today's labs that she will have done at [facility] for further evaluation of her symptoms. She did recently start a Multivitamin and encouraged her to continue that. Will consider starting one of the following depending on X-ray and lab results: Cymbalta, Savella, Gabapentin, Lyrica. Chronic left hip pain - XR hip left 2 or 3 views; Future Pt had significant pain with ROM of the left hip. Will obtain x-rays for further evaluation at this time. Will notify pt of the results once received. Generalized anxiety disorder Continue Buspar as prescribed. Advised pt that her Colonoscopy in 2018 was normal. Next colonoscopy due 2028. Advised pt that Mammograms are recommended through age 74 according to USPSTF guidelines. Follow up in about 2 months (around 01/13/2025) for Medicare Wellness Visit. documented in this encounter [facility] 08-20-2024 History of Presen t illness Narrative Images from the original note were not included. Subjective Patient ID: Yousuf Amaya is a 64 y.o. female who presents for [facility] ER follow up. Yousuf is present today for [facility] ER follow up. She was seen at [...] Right 06/06/2019 CATARACT EXTRACTION Left 11/21/2019 CHOLECYSTECTOMY 2006 COLONOSCOPY 11/21/[address] GUIDED TRANSVAGINAL [...] fail to improve. 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 Side: Bilateral. Status: moderate, chronic, stable assessment Pseudophakia impression Pseudophakia: Z96.1. Bilateral. Condition: established, stable [facility] Work Phone: 1(553) 690-769203-27-2025 History of Present illness Narrative* Encounter Date [...] denies any floaters or flashes of light. 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 Patient states Oct- Pigmentary retinal dystrophy The 61 year old [...] for evaluation of RP in both eyes. [facility] Work Phone: [phone] Instructions* Date Instruction Additional Infor mation Impression/Plan Related to Pigme ntary retinal dystrophy [...] Patient has been seen previously at the [facility]; she stated they told her they [...] up. Appropriate follow up with primary eye home care specialist was recommended. Related to PVD (Vitreous degeneration) [...] future. Offered patient a referral to the [facility]/Dr. Robles (who specializes in inherited retinal [...] follow up exam. Related to Retinitis pigmentosa [facility] Work Phone: [phone]) 172-524402-17-2025 History of Present illness Narrative* CHAN Elizondo - 06/10/2024 11:30 AM EST Images from the original note were not included. Subjective Patient ID: Yousuf Amaya is a 63 y.o. female who presents for Potassium Check. Yousuf is present today for evaluation of possibly [...] for Medication Follow Up. [place] [id number] Telephone encounter Note* Telephone Encounter - Emilia Flores LPN - 05/29/2024 8:45 AM EST Sent. [id number] Miscellaneous Notes* Telephone Encounter - Emilia Flores LPN - 05/29/2024 8:45 AM EST Sent. * Telephone Encounter - Madie Monroy - 05/29/2024 8:28 AM EST potassium chloride CR (K-Tab) 20 MEQ ER tablet Patient is wondering [facility] [place] She said she struggles with low potassium sometimes and she thinks that is what is happening now to her. She feels light-headed, dizzy, like she might pass out. [facility] [id number] Telephone encounter Note* Telephone Encounter - Madie Monroy - 05/29/2024 8:28 AM EST potassium chloride CR (K-Tab) 20 MEQ ER tablet Patient is wondering if [facility] [place] She said she struggles with low potassium sometimes and she thinks that is what is happening now to her. She feels light-headed, dizzy, like she might pass out. [id number] History and physical note[address] [address] Gastroenterology H&P Signed Patient: Yousuf Amaya V MR#: [id number] : 1960 Acct:[id number] Age/Sex: 63 / F Adm Date: Loc: Room: Type: [facility] Attending Dr: Sivakumar Juárez MD Copies to: MD Nelly Lowry MD~ Date of Service: 05/16/2024 HISTORY [...] Sivakumar Juárez MD 05/16/241325 Signed By: 05/16/24 [facility]01-23-2025 [place] [address] EGD Procedure Note Signed Patient: Yousuf Amaya V MR#: [id number] : 1960 Acct:[id number] Age/Sex: 63 / F Adm Date: Loc: Room: Type: [facility] Attending Dr: Sivakumar Juárez MD Copies to: MD Nelly Lowry MD~ Esophagogastroduodenoscopy Date/Provider Date: 05/16/2024 Sivakumar [...] Juárez MD 05/16/24 1326 Signed By: 05/16/24 1355 [facility]12-10-2024 History of Present illness Narrative * CHAN Elizondo - 04/02/2024 10:30 AM EST Images from the original note were not included. Subjective Patient ID: Yousuf Amaya is a 63 y.o. female who presents for dysphagia. Yousuf is present today for evaluation of feeling [...] for Medicare Wellness Visit. documented in this encounterDo[facility] [id number] Telephone encounter Note* Telephone Encounter - CHAN Elizondo - 01/16/2024 10:37 AM EDT Called and informed pt that her potassium was very low. Needs to restart the supplement today. She voices understanding, updated Rx sent in for pt. Advised pt will need to recheck in one week. Lab order will be sent to [facility]. [id number] Miscellaneous Notes* Telephone Encounter - CHAN Elizondo - 01/16/2024 10:37 AM EDT Called and informed pt that her potassium was very low. Needs to restart the supplement today. She voices understanding, updated Rx sent in for pt. Advised pt will need to recheck in one week. Lab order will be sent to [facility]. * Telephone Encounter - Rosa Warren MA - 01/16/2024 10:12 AM EDT Critical lab potassium is 2.8 from [facility] documented in this encounterDoctors [facility] of [id number] Telephone encounter Note* Telephone Encounter - Rosa Warren MA - 01/16/2024 10:12 AM EDT Critical lab potassium is 2.8 from [facility] [id number] History of Present illness Narrative* CHAN Elizondo - 01/10/2024 4:30 PM EDT Images from the original note were not included. Subjective : Chief Complaint: Yousuf Amaya is an 63 y.o. female here [...] of current healthcare providers: Patient Care Team: Nelly Zee MD as PCP - General (Family [...] Do you have a medical power of supervisor home economics?: (P) No Objective : BP 116/72 Pulse [...] a living will and durable power of supervisor home economics for healthcare. We discussed telling garcia people [...] (CMS/HCC) The patient is seeing a medical staff physician for this condition, treatment is deferred to [...] pigmentosa The patient is seeing a medical staff physician for this condition, treatment is deferred to [...] on January 10, 2024 documented in this encounterNOBarn[facility] HospitalConsult note* Clinical Note Date No Information [facility] Work Phone: Discharge summary* Clinical Note Date No Information [facility] Work Phone: Evaluation note* Diagnosis Dysphagia, unspecified type- Primary Overweight (BMI 25.0-29.9) Overweight Gastroesophageal reflux disease without esophagitis Esophageal reflux Hoarseness of voice Dysphonia Chronic cough Cough documented in this encounter [facility] HealthcareEvaluation [facility]* Diagnosis Medicare annual wellness visit, initial- Primary ACP (advance care planning) Other specified counseling Difficulty sleeping Unspecified sleep disturbance EVIE (obstructive sleep apnea) Obstructive sleep apnea (adult) (pediatric) Other chronic pain Tension headache CPAP (continuous positive airway pressure) dependence Dependence on other enabling machine Moderate persistent asthma without complication ([facility]/HCC) Benign hypertension ([facility]/HCC) Essential hypertension, benign Dysphagia, unspecified type Gastroesophageal reflux disease without esophagitis Esophageal reflux Stage 3a chronic kidney disease (HCC) ([facility]/HCC) Ankylosis, right shoulder Inflammation of right sacroiliac joint ([facility]/HCC) Acquired hypothyroidism ([facility]) Unspecified hypothyroidism Overweight (BMI 25.0-29.9) Overweight Thrombocytosis Essential thrombocythemia Elevated LDL cholesterol level ([facility]/HCC) Generalized anxiety disorder ([facility]/HCC) Generalized anxiety disorder History of total hysterectomy Hypokalemia Hypopotassemia Retinitis pigmentosa Pigmentary retinal dystrophy Seasonal allergies Allergic rhinitis, cause unspecified Other problems related to lifestyle Atherosclerosis of aorta ([facility]) Atherosclerosis of aorta documented in this encounter [facility] HealthcareEvaluation note* Diagnosis Hypokalemia- Primary Hypopotassemia documented in this encounter [facility] HealthcareEvaluation noteNo assessment information availableThe [facility] Work Phone: Evaluation note* Diagnosis Hypokalemia Hypopotassemia documented in this encounter [facility] HealthcareEvaluation note* Diagnosis Near syncope- Primary Hypokalemia Hypopotassemia EVIE (obstructive sleep apnea) Obstructive sleep apnea (adult) (pediatric) CPAP (continuous positive airway pressure) dependence Dependence on other enabling machine Benign hypertension ([facility]/HCC) Essential hypertension, benign Degeneration of intervertebral disc of lumbar region with discogenic back pain Chronic pain of both knees Stress reaction Unspecified acute reaction to stress Chronic kidney disease, stage 3a (HCC) (CMS/HCC) documented in this encounter [facility]* Diagnosis Lumbar strain, initial encounter- Primary Rheumatoid arthritis, unspecified documented in this encounter [facility]* Diagnosis Stage 3b chronic kidney disease (CMS-HCC)- Primary Degeneration of intervertebral disc of lumbar region with discogenic back pain Paresthesia of left leg Disturbance of skin sensation Chronic left hip pain Generalized anxiety disorder Generalized anxiety disorder documented in this encounter [facility] HealthcareEvaluation note* Diagnosis Other chronic pain- Primary documented in this encounter [facility] HealthcareEvaluation note* Diagnosis Onset Date Resolution Status Admit Date Barretts esophagus acute December 13, 2024 1:04pm GERD (gastroesophageal reflux disease) acute December 13 1:04pm Dysphagia noneactive December 13 1:04pm [facility] Work Phone: History and physical note Author Sivakumar Juárez [facility] Note Date/Time May 16, 2024 2 :47pm [facility] [address] [place] [address] Gastroenterology H&P Signed Patient: Yousuf Amaya V MR#: [id number] : 1960 Acct:[id number] Age/Sex: 63 / F Adm Date: Loc: Room: Type: [facility] Attending Dr: Sivakumar Juárez MD Copies to: MD Nelly Lowry MD~ Date of Service: 05/16/2024 HISTORY [...] signed by Sivakumar Juárez MD> 05/16/24 1326 [facility] Work Phone: History and physical note* Clinical Note Date No Information [facility] Work Phone: Progress note* Clinical Note Date No Information [facility] Work Phone: Reason for referral (narrative)* Reason For Referral No Information [facility] Work Phone: Reason for referral (narrative)No reason for referral information availableWhite Hospital Work Phone: Summary Purpose Family History Relationship [...] No Effective Date File Name No Information Advance Directive Response Recorded Date/ Time Advance Directives No May 09, 2019 1:12pm Chief Complaint and Reason for Visit Chief Complaint Admit Date Dysphagia May 16, 2024 1 1:20am Dysphagia May 16, 2024 1 :26pm Chief Complaint Admit Date 6 month follow up/GERD/BARRETTs November 232024 1:04pm Reason for Visit Admit Date Barretts esophagus December 13, 2024 1: 04pm GERD (gastroesophageal reflux disease) A ugust 2024 1:04pm Dysphagia December 13, 2024 1: 04pm Additional Source Comments INFORMATION SOURCE (unrecogn ized section and content) DATE CREATED AUTHOR 09/10/2021 [facility] DATE CREATED AUTHOR AUTHOR'S ORGANIZ ATION 10/23/2021 [facility] DATE CREATED AUTHOR AUTHOR'S ORGANIZ ATION 07/20/2024 [facility] DATE CREATED AUTHOR AUTHOR'S ORGANIZ ATION 08/22/2024 [facility] DATE CREATED AUTHOR AUTHOR'S ORGANIZ ATION 11/13/2024 [facility] dical Specialists EPIC Care Teams (unrecognized sec tion and content) Mrb Engineer Relationship Specialty Start Date End Date Nelly Zee MD [address] [facility] [address] [place] [address] PCP - General Family Medicine 11/15/22 Karolyn Rangel STEEL POST INSTALLER SUPERVISOR [address] [facility] [address] [place] [address] PCP - Selene IVORY 10/23/23 Mrb Engineer Relationship Specialty Start Date End Date Nelly Zee MD [address] [facility] [address] [place] [address] PCP - General Family Medicine 11/15/22 Kate Slater, STEEL POST INSTALLER SUPERVISOR [address], [address] [address] PCP - Selene IVORY 12/24/23 Mrb Engineer Relationship Specialty Start Date End Date Nelly Zee MD [address] [facility] [address] [place] [address] PCP - General Family Medicine 11/15/22 Kate Slater, STEEL POST INSTALLER SUPERVISOR [address], [address] [address] PCP Casey Morton MA 12/24/23 Mrb Engineer Relationship Specialty Start Date End Date Nelly Zee MD [address] [place] [address] PCP - General Family Medicine 11/15/22 Karolyn Rangel, STEEL POST INSTALLER SUPERVISOR [address] [place] [address] PCP - Selene IVORY 10/23/23 Mrb Engineer Relationship Specialty Start Date End Date Nelly Zee MD [address] [place] [address] PCP - General Family Medicine 11/15/22 Karolyn Rangel, STEEL POST INSTALLER SUPERVISOR [address] [place] [address] PCP Casey Morton MA 10/23/23 Mrb Engineer Relationship Specialty Start Date End Date Nelly Zee MD [address] [place] [address] PCP - General Family Medicine 11/15/22 Karolyn Rangel, STEEL POST INSTALLER SUPERVISOR [address] [facility] [place] [address] PCP Casey Morton MA 10/23/23 Mrb Engineer Relationship Specialty Start Date End Date Nelly Zee MD [address] [place] [address] PCP - General Family Medicine 11/15/22 Karolyn Rangel, STEEL POST INSTALLER SUPERVISOR [address] [facility] [place] [address] SHERLYN Morton MA 10/23/23 Team Status: Active Member Role Status Dinesh Zee MD Primary Care Provider Active Team Status: Inactive Member Role Status Dates Nelly Zee MD Primary Care Provider Active S tart: May 16, 2024 End: May 16, 2024 Sivakumar Juárez MD Attending Provider Active Start: May 16, 2024 End: May 16, 2024 Team Status: Active Member Role Status Dates Nelly Zee MD Primary Care Provider Active S tart: May 16, 2024 Sivakumar Juárez MD Attending Provider, Other Provider Active Start: May 16, 2024 Mrb Engineer Relationship Specialty Start Date End Date Nelly Zee MD [address] [place] [address] PCP - General Family Medicine 11/15/22MondayBina LPN [address] [place] [address] Licensed Practical Nurse Family Medicine 04/10/24 Mrb Engineer Relationship Specialty Start Date End Date Nelly Zee MD [address] [place] [address] PCP - General Family Medicine 11/15/22 Rosa Edwards, RN Licensed Practical Nurse Family Medicine 05/31/24 Mrb Engineer Relationship Specialty Start Date End Date Nelly Zee MD [address] [facility] [place] [address] PCP - General Family Medicine 11/15/22 Rosa Edwards, RN Licensed Practical Nurse Family Medicine 05/31/24 Mrb Engineer Relationship Specialty Start Date End Date Nelly Zee MD [address] [place] [address] PCP - General Family Medicine 11/15/22 Rosa Edwards, RN Licensed Practical Nurse Family Medicine 05/31/24 Name Effective Dates (start - stop) Status Members No Information Mrb Engineer Relationship Specialty Start Date End Date Nelly Zee MD [address] [place] [address] PCP - General Family Medicine 11/15/22 Humera Fontenot LPN 07/12/24 Mrb Engineer Relationship Specialty Start Date End Date Nelly Zee MD [address] [place] [address] PCP - General Family Medicine 11/15/22 Humera Fontenot LPN 07/12/24 Mrb Engineer Relationship Specialty Start Date End Date Nelly Zee MD [address] [place] [address] PCP - General Family Medicine 11/15/22 Humera Fontenot LPN [address] [place] [address] 07/12/24 Mrb Engineer Relationship Specialty Start Date End Date Nelly Zee MD [address] [place] [address] PCP - General Family Medicine 11/15/22 Humera Fontenot LPN [address] [place] [address] 07/12/24 Mrb Engineer Relationship Specialty Start Date End Date Nelyl Zee MD [address] [place] [address] PCP - General Family Medicine 11/15/22 Humera Fontenot LPN [address] [place] [address] 07/12/24 Mrb Engineer Relationship Specialty Start Date End Date Nelly Zee MD [address] [place] [address] PCP - General Family Medicine 11/15/22 Humera Fontenot LPN [address] [facility] [address] [place] [address] 07/12/24 Team Status: Inactive Member Role Status Dates Nelly Zee MD Primary Care Provider Active S tart: December 13, 2024 End: December 13, 2024 Jhonatan Trinidad APRN Attending Provider Active Start: December 13, 2024 End: December 13, 2024 Reason for Visit (unrecogniz ed section and content) Reason Comments Potassium Check Reason Comments Chronic Kidney Disease She would like a referral to a sea foam kiss maker d/t her kidney disease. Denies having any problems. Goals (unrecognized section and content) Goals may be documented in a n alternate section FOR RECORDS PERTAINING TO PATIENTS WHO ARE [...] BE BASED ON THE PRIMARY CLINICAL RECORDS. [employer] [facility]. provides no warranty or guarantee of the accuracy or completeness of information in this document.
--- OUTSIDE RECORDS SUMMARY | 2025-01-16 07:07 | XMS_ITS | Encounter Summary ---
Author Organization [facility] Address [address] [address] Care Team Providers Care Varnishing Unit Operator Name Role Phone Erika Gaviria MD Primary Care Provider Erika Gaviria MD Unavailable Erika Gaviria MD Unavailable Karolyn Rangel REINFORCED CONCRETE INSPECTOR Unavailable [phone] Kate Slater REINFORCED CONCRETE INSPECTOR Unavailable [phone] Naomie Johnson RN Unavailable Monday, Bina LEADITE HEATER Unavailable [phone] Rosa Edwards RN Unavailable Humera Fontenot LEADITE HEATER Unavailable Encounter Details Date Type Department Care Team (Late st Contact Info) Description 08/15/2023 Orders Only [facility] [place] [facility] [address] [place] [address] Unallocated, [facility] Provider, [address] [place], [place] [id number] Social History Tobacco Use Types Packs/Day Years [...] week 11/09/2022 How often do you attend [facility] or muslim services? More than 4 times per year 11/09/2022 Do you belong to any clubs o r organizations such as worship groups, unions, fraternal or athletic groups, or [...] and heating? Not hard at all 11/09/2022 [facility] - Occupational [...] place to sleep or slept in a fci (including now)? No 11/09/2022 Comments Unknown Sex and Gender Information Value Date Recorded Sex Assigned at Not on file Legal Sex Female 8:00 PM EDT Gender Identity Not on file Sexual Orientation Not on file documented as of this encounter Plan of Treatment Upcoming Encounters Date Type Department Care Team (Late st Contact Info) Description 01/21/2025 8:00 AM EDT Office Visit [facility] [place] [facility] [address] [place] [address] Franny Salazar PA [address] [place] [address] documented as of this encounter Procedures Procedure Name Priority Date/Time Associated Diagnosis Comments SCANNED LABS Routine 08/12/2023 2:44 PM EDT documented in this encounter Results * SCANNED LABS (08/12/2023 2:44 PM EDT) us [facility] Provider Unallocated LAB CHG PERFORMABLE S Final Result documented in this encounter Visit Diagnoses Not on filedocumented in this encounter Care Teams Varnishing Unit Operator Relationship Specialty Start Date End Date Erika Gaviria MD [address] [place] [address] PCP - General Family Medicine 11/15/22 Erika Gaviria MD [address] [place] [address] PCP - Selene IVORY 04/24/23 10/22/23 Erika Gaviria MD [address] [place] [address] PCP - S [facility] 07/24/23 10/22/23 Karolyn Rangel, REINFORCED CONCRETE INSPECTOR [address] [place] [address] PCP - Selene IVORY 10/23/23 12/23/23 Kate Slater, REINFORCED CONCRETE INSPECTOR PCP - Selene IVORY 12/24/23 03/23/24 Naomie Johnson, JEREMY [address] [facility] [address] [place] [address] Registered Nurse Family Medicine 04/04/24 04/10/24Monday, TESS Curran [address] [place] [address] Licensed Practical Nurse Family Medicine 04/10/24 Rosa Edwards, RN [address] [place] [address] Licensed Practical Nurse Family Medicine 05/31/2407/12 Humera Fontenot LPN [address] [address] 07/12/24 documented as of this encounter
--- OUTSIDE RECORDS SUMMARY | 2025-01-16 07:07 | XMS_ITS | Encounter Summary ---
Author Organization [facility] Address [address] [place] [address] Care Team Providers Care Textile Engineer Name Role Phone Erika Gaviria MD Primary Care Provider [phone] Erika Gaviria MD Unavailable Erika Gaviria MD Unavailable Karolyn Rangel PESTICIDE APPLICATOR Unavailable [phone] Kate Slater PESTICIDE APPLICATOR Unavailable Naomie Johnson RN Unavailable Monday, Bina CORRECTIONAL PROBATION OFFICER Unavailable [phone] Rosa Edwards RN Unavailable Humera Fontenot CORRECTIONAL PROBATION OFFICER Unavailable Encounter Details Date Type Department Care Team (Late st Contact Info) Description 08/15/2023 Abstract [facility] [place] [facility] [address] [facility] [address] [place] [address] Erika Gaviria MD [address] [facility] [address] [place], [place] [id number] Social History Tobacco Use Types Packs/Day Years [...] week 11/09/2022 How often do you attend [facility] or denominational services? More than 4 times per year 11/09/2022 Do you belong to any clubs o r organizations such as restorationism groups, unions, fraternal or athletic groups, or [...] and heating? Not hard at all 11/09/2022 [facility] [place] of Occupat ional Health - Occupational Stress [...] place to sleep or slept in a detention (including now)? No 11/09/2022 Comments Unknown Sex [...] [place] [facility] [address] [place] [address] Franny Salazar PA [address] [place] [address] documented as of this encounter Visit Diagnoses Not on filedocumented in this encounter Care Teams Textile Engineer Relationship Specialty Start Date End Date Erika Gaviria MD [address] [place] [address] PCP - General Family Medicine 11/15/22 Erika Gaviria MD [address] [place] [address] PCP - Selene IVORY 04/24/23 10/22/23 Erika Gaviria MD [address] [place] [address] PCP - FFS [facility] 07/24/23 10/22/23 Karolyn Rangel, PESTICIDE APPLICATOR [address] [place] [address] PCP - Selene IVORY 10/23/23 12/23/23 Kate Slater PESTICIDE APPLICATOR PCP - Selene IVORY 12/24/23 03/23/24 Naomie Johnson RN [address] [facility] [address] [place] [address] Registered Nurse Family Medicine 04/04/24 04/10/24MondayBina LPN [address] [place] [address] Licensed Practical Nurse Family Medicine 04/10/24 Rosa Edwards, JEREMY [address] [facility] [place] [address] Licensed Practical Nurse Family Medicine 05/31/2407/12 Humera Fontenot LPN [address] [place] [address] 07/12/24 documented as of this encounter
--- OUTSIDE RECORDS SUMMARY | 2025-01-16 07:07 | XMS_ITS | Encounter Summary ---
Author Organization [facility] Address [address] [place] [address] Care Team Providers Care Landscape Manager Name Role Phone Erika Gaviria MD Primary Care Provider [phone] Erika Gaviria MD Unavailable Erika Gaviria MD Unavailable Karolyn Rangel REEL STRIPPER Unavailable Kate Slater REEL STRIPPER Unavailable Naomie Johnson RN Unavailable Monday, Bina CARGO SERVICES COORDINATOR Unavailable [phone] Rosa Ewdards RN Unavailable [phone] Humera Fontenot CARGO SERVICES COORDINATOR Unavailable Encounter Details Date Type Department Care Team (Late st Contact Info) Description 08/15/2023 Abstract [facility] [place] [facility] [address] [facility] [address] [place] [address] Erika Gaviria MD [address] [facility] [address] [place], [place] [id number] Social History Tobacco Use Types Packs/Day Years [...] week 11/09/2022 How often do you attend [facility] or temple services? More than 4 times per year 11/09/2022 Do you belong to any clubs o r organizations such as jehovah's witness groups, unions, fraternal or athletic groups, or [...] and heating? Not hard at all 11/09/2022 [facility] [place] of Occupat ional Health - Occupational [...] place to sleep or slept in a senior care (including now)? No 11/09/2022 Comments Unknown Sex [...] [place] [facility] [address] [place] [address] Franny Salazar PA [address] [place] [address] documented as of this encounter Visit Diagnoses Not on filedocumented in this encounter Care Teams Landscape Manager Relationship Specialty Start Date End Date Erika Gaviria MD [address] [place] [address] PCP - General Family Medicine 11/15/22 Erika Gaviria MD [address] [place] [address] PCP - Selene IVORY 04/24/23 10/22/23 Erika Gaviria MD [address] [place] [address] PCP - FFS [facility] 07/24/23 10/22/23 Karolyn Rangel, REEL STRIPPER [address] [place] [address] PCP - Selene IVORY 10/23/23 12/23/23 Kate Slater REEL STRIPPER PCP - Selene IVORY 12/24/23 03/23/24 Naomie Johnson RN [address] [facility] [address] [place] [address] Registered Nurse Family Medicine 04/04/24 04/10/24MondayBina LPN [address] [place] [address] Licensed Practical Nurse Family Medicine 04/10/24 Rosa Edwards, JEREMY [address] [facility] [place] [address] Licensed Practical Nurse Family Medicine 05/31/2407/12 Humera Fontenot LPN [address] [place] [address] 07/12/24 documented as of this encounter
--- OUTSIDE RECORDS SUMMARY | 2025-01-16 07:07 | XMS_ITS | Encounter Summary ---
Author Organization [facility] Address [address] [place] [address] Care Team Providers Care Fisher Eel Spear Name Role Phone Erika Gaviria MD Primary Care Provider [phone] Erika Gaviria MD Unavailable Erika Gaviria MD Unavailable Karolyn Rangel ELASTIC TAPE INSERTER Unavailable Kate Slater ELASTIC TAPE INSERTER Unavailable Naomie Johnson RN Unavailable Monday, Bina FRAMEWORK DEVELOPER Unavailable [phone] Rosa Edwards RN Unavailable Humera Fontenot FRAMEWORK DEVELOPER Unavailable Encounter Details Date Type Department Care Team (Late st Contact Info) Description 08/15/2023 Abstract [facility] [place] [facility] [address] [facility] 110 [place] [address] Erika Gaviria MD [address] [facility] 110 [place], [place] [id number] Social History Tobacco Use Types Packs/Day Years [...] week 11/09/2022 How often do you attend [facility] or holiness services? More than 4 times per year 11/09/2022 Do you belong to any clubs o r organizations such as latter day groups, unions, fraternal or athletic groups, or [...] and heating? Not hard at all 11/09/2022 [facility] of Occupat ional Health - Occupational Stress [...] place to sleep or slept in a intermediate (including now)? No 11/09/2022 Comments Unknown Sex [...] [place] Hooper [address] [place] [address] Franny Salazar PA [address] [place] [address] documented as of this encounter Visit Diagnoses Not on filedocumented in this encounter Care Teams Fisher Eel Spear Relationship Specialty Start Date End Date Erika Gaviria MD [address] [place] [address] PCP - General Family Medicine 11/15/22 Erika Gaviria MD [address] [place] [address] PCP - Selene IVORY 04/24/23 10/22/23 Erika Gaviria MD [address] [place] [address] PCP - FFS [facility] 07/24/23 10/22/23 Karolyn Rangel, ELASTIC TAPE INSERTER [address] [place] [address] PCP - Selene IVORY 10/23/23 12/23/23 Kate Slater ELASTIC TAPE INSERTER PCP - Selene IVORY 12/24/23 03/23/24 Naomie Johnson RN [address] [facility] 230 [place] [address] Registered Nurse Family Medicine 04/04/24 04/10/24MondayBina LPN [address] [place] [address] Licensed Practical Nurse Family Medicine 04/10/24 Rosa Edwards, JEREMY [address] [facility] [place] [address] Licensed Practical Nurse Family Medicine 05/31/2407/12 Humera Fontenot LPN [address] [place] [address] 07/12/24 documented as of this encounter
--- OUTSIDE RECORDS SUMMARY | 2025-01-16 07:07 | XMS_ITS | Encounter Summary ---
Author Organization [facility] Address [address] [place] [address] Care Team Providers Care Editor & Co Founder Name Role Phone Erika Gaviria MD Primary Care Provider [phone] Kate Slater NEWSPAPER EDITOR MANAGING Unavailable Naomie Johnson RN Unavailable Monday, Bina INTERMEDIATE SCHOOL TEACHER Unavailable [phone] Rosa Edwards RN Unavailable FontenotHumera INTERMEDIATE SCHOOL TEACHER Unavailable Encounter Details Date Type Department Care Team (Late st Contact Info) Description 01/17/2024 Abstract [facility] [address] [facility] 110 [place] [address] Franny Salazar, CHAN 112 [facility] 110 [place] [address] Social History Tobacco Use Types Packs/Day Years [...] week 01/06/2024 How often do you attend [facility] or episcopal services? More than 4 times per year 01/06/2024 Do you belong to any clubs o r organizations such as episcopal groups, unions, fraternal or athletic groups, or [...] Recorded Patient Health Questionnaire-2 Score 1 01/06/2024 [facility] of Occupat ional Health - Occupational Stress [...] place to sleep or slept in a halfway (including now)? No 11/09/2022 Housing Stability Vital Sign Answer Michael e Recorded In the last 12 months, was t here a time when you were not able to pay the mortgage or rent on time? No 01/06/2024 Number of Times Moved in the Last Year Not on fi le 01/06/2024 At any time in the past 12 m [facility], were you homeless or living in a halfway (including now)? No 01/06/2024 Comments Unknown Sex [...] [place] Hooper [address] [place] [address] Franny Salazar PA [address] [place] [address] documented as of this encounter Visit Diagnoses Not on filedocumented in this encounter Additional Health Concerns Assessment Noted Time PHQ-9 Depression Total Score: 5 01/06/20 24 5:38 AM EDT documented as of this encounter Care Teams Editor & Co Founder Relationship Specialty Start Date End Date Erika Gaviria MD [address] [facility] 110 [place] [address] PCP - General Family Medicine 11/15/22 Kate Slater NP PCP - Selene IVORY 12/24/23 03/23/24 Naomie Johnson RN [address] [facility] [address] [place] [address] Registered Nurse Family Medicine 04/04/24 04/10/24MondayBina LPN [address] [facility] 110 [place] [address] Licensed Practical Nurse Family Medicine 04/10/24 Rosa Edwards RN [address] [place] [address] Licensed Practical Nurse Family Medicine 05/31/2407/12 Humera Fontenot LPN [address] [facility] 110 [place] [address] 07/12/24 documented as of this encounter
--- OUTSIDE RECORDS SUMMARY | 2025-01-16 07:07 | XMS_ITS ---
Author Organization [facility] Address [address] [facility] [place] [address] Care Team Providers Care Special Collections Librarian Name Role Phone Eirka Gaviria MD Primary Care Provider [phone] Humera Fontenot LPN Unavailable Chronic Care Management (CCM) Status:Enrolled (Active) Start date:04/04/2024 Enrollment date:04/11/2024 Enrollment reason:Identified as high-risk Overview 04/11/24, 4:38 PM - Binamonday, TESS- Patient gives verbal consent to be enrolled in CCM Program and understands there could be a bill for this service. Case Team Name Relationship Phone Humera Fontenot LPN(Responsible Staff) [phone] Continued Care and Services Coordination
--- OUTSIDE RECORDS SUMMARY | 2025-01-16 07:07 | XMS_ITS | Encounter Summary ---
Author Organization [facility] Address [address] [place] [address] [place] [address] Care Team Providers Care Property Damage Claims Adjustor Name Role Phone Erika Gaviria MD Primary Care Provider [phone] Monday, Bina FELLER BUNCHER OPERATOR Unavailable [phone] Rosa Edwards RN Unavailable Fontenot, Humera FELLER BUNCHER OPERATOR Unavailable Encounter Details Date Type Department Care Team (Late st Contact Info) Description 05/16/2024 Abstract [facility] [place] [facility] 112 [facility] 110 [place] [address] Erika Gaviria MD 112 [facility] 110 [place] [address] Social History Tobacco Use Types Packs/Day Years [...] week 01/06/2024 How often do you attend [facility] or jehovah's witness services? More than 4 [...] Recorded Patient Health Questionnaire-2 Score 1 01/06/2024 [facility] of Occupat ional Health - Occupational Stress [...] in a intermediate (including now)? No 11/09/2022 Housing Stability Vital Sign Answer Michael e Recorded In the last 12 months, was t here a time when you were not able to pay the mortgage or rent on time? No 04/12/2024 In the past 12 months, how m any times have you moved where you were living? 0 04/12/2024 At any time in the past 12 m [facility], were you homeless or living in a intermediate (including now)? No 04/12/2024 Comments Unknown Sex and Gender Information Value Date Recorded Sex Assigned at Not on file Legal Sex Female 8:00 PM EDT Gender Identity Not on file Sexual Orientation Not on file documented as of this encounter Plan of Treatment Upcoming Encounters Date Type Department Care Team (Late st Contact Info) Description 01/21/2025 8:00 AM EDT Office Visit [facility] [place] [facility] [address] [facility] 110 [place] [address] Franny Salazar PA [address] [place] [address] documented as of this encounter Visit Diagnoses Not on filedocumented in this encounter Additional Health Concerns Assessment Noted Time PHQ-9 Depression Total Score: 5 01/06/20 24 5:38 AM EDT documented as of this encounter Care Teams Property Damage Claims Adjustor Relationship Specialty Start Date End Date Erika Gaviria MD [address] [facility] 110 [place] [address] PCP - General Family Medicine 11/15/22MondayBina LPN [address] [place] [address] Licensed Practical Nurse Family Medicine 04/10/24 Rosa Edwards, RN [address] [place] [address] Licensed Practical Nurse Family Medicine 05/31/2407/12 Humera Fontenot LPN [address] [facility] 110 [place] [address] 07/12/24 documented as of this encounter
--- OUTSIDE RECORDS SUMMARY | 2025-01-16 07:07 | XMS_ITS | Encounter Summary ---
Author Organization [facility] Address [address] [facility] [place] [address] Care Team Providers Care Lead Systems Engineer Name Role Phone Erika Zee MD Primary Care Provider [phone] Karolyn Rangel MANUFACTURING TEST TECHNICIAN Unavailable Dorita Dye MANUFACTURING TEST TECHNICIAN Unavailable [phone] Naomie Johnson RN Unavailable MondayBina TILE INSPECTOR Unavailable [phone] Rosa Edwards RN Unavailable FontenotHumera TILE INSPECTOR Unavailable Encounter Details Date Type Department Care Team (Late st Contact Info) Description 11/13/2023 Clinisync Result Encounter NOMS External Department Unsolicited Dorita Dye MANUFACTURING TEST TECHNICIAN Social History Tobacco Use Types Packs/Day Years [...] How often do you attend chur or latter-day services? More than 4 times per year 11/09/2022 Do you belong to any clubs o r organizations such as restorationist groups, unions, fraternal or athletic groups, or [...] and heating? Not hard at all 11/09/2022 [facility] [place] of Occupat ional Health - Occupational Stress [...] place to sleep or slept in a longterm (including now)? No 11/09/2022 Comments Unknown Sex and Gender Information Value Date Recorded Sex Assigned at Not on file Legal Sex Female 8:00 PM EDT Gender Identity Not on file Sexual Orientation Not on file documented as of this encounter Plan of Treatment Upcoming Encounters Date Type Department Care Team (Late st Contact Info) Description 01/21/2025 8:00 AM EDT Office Visit [facility] [place] Hooper [address] [place] [address] Franny Salazar PA [address] [place] [address] documented as of this encounter Procedures Procedure Name Priority Date/Time Associated Diagnosis Comments MR LUMBAR SPINE WO CON 11/13/2023 8:09 AM EDT documented in this encounter Results * MR LUMBAR SPINE WO CON (11/13/2023 8:09 AM EDT) Anatomical Region Laterality Modality Other 11/13/2023 8:09 AM EDT Narrative 11/13/2023 8:11 AM EDT [facility] [place] [id number] Magnetic Resonance Report Signed Patient: АННА AMAYA V MR#: [id number] : 1960 Acct:[id number] Age/Sex: 63 / F ADM Date: 11/10/23 Loc: MRI Attending Dr: Dorita Dye MANUFACTURING TEST TECHNICIAN Ordering Physician: Dorita Dye NP Date of Service: 11/10/23 Procedure(s): MR lumbar spine wo con Accession Number(s): [id number] cc: ERIKA ZEE ; Dorita Dye NP [facility] [place] [id number] Patient Name: АННА AMAYA MRN: [id number] date: 1960 Sex: F Assigned Patient Location: MRI Current Patient Location: Accession/Order Number: [id number] Exam Date: 11/10/2023 07:05 Report Date: 11/13/2023 [...] M.D. Signed By: 11/13/23810 DD/ 8 TD/TT: Box Hinge And Lock Attacher: Procedure Note Radiology, Radiologist, MD - 11/13/2023 [place] [address] Magnetic Resonance Report Signed Patient: АННА AMAYA VMR#: [id number] : 1960cct:[id number] Age/Sex: 63 / FADM Date: 11/10/23 Loc: MRI Attending Dr: Dorita Dye MANUFACTURING TEST TECHNICIAN Ordering Physician: Dorita Dye NP Date of Service: 11/10/23 Procedure(s): MR lumbar spine wo con Accession Number(s): [id number] cc: ERIKA ZEE ; Dorita Dye NP [facility] [place] [id number] Patient Name: АННА AMAYA MRN: [id number] date: 1960 Sex: F Assigned Patient Location: MRI Current Patient Location: Accession/Order Number: [id number] Exam Date: 11/10/2023 07:05 Report Date: 11/13/2023 [...] Burnette M.D. Signed By:11/13/23810 DD/ 8 TD/TT: Box Hinge And Lock Attacher: us Dorita Dye MANUFACTURING TEST TECHNICIAN [facility] Final R esult documented in this encounter Visit Diagnoses Not on filedocumented in this encounter Care Teams Lead Systems Engineer Relationship Specialty Start Date End Date Erika Zee MD [address] [facility] 110 [place] [address] PCP - General Family Medicine 11/15/22 Karolyn Rangel NP [address] [facility] 110 [place] [address] PCP - Selene IVORY 10/23/23 12/23/23 Dorita Dye NP PCP - Selene IVORY 12/24/23 03/23/24 Naomie Johnson, JEREMY [address] [place] [address] Registered Nurse Family Medicine 04/04/24 04/10/24Monday, TESS Curran [address] [place] [address] Licensed Practical Nurse Family Medicine 04/10/24 Rosa Edwards, RN [address] [place], [place] [address] Licensed Practical Nurse Family Medicine 05/31/2407/12 Humera Fontenot LPN [address] [place] [address] 07/12/24 documented as of this encounter
--- OUTSIDE RECORDS SUMMARY | 2025-01-16 07:07 | XMS_ITS | Encounter Summary ---
Author Organization [facility] Address [address] [place] [address] [place] [address] Care Team Providers Care Cigarette Package Examiner Name Role Phone Erika Gaviria MD Primary Care Provider Erika Gaviria MD Unavailable Erika Gaviria MD Unavailable Karolyn Rangel COMPUTER ANALYST SUPERVISOR Unavailable Kate Slater COMPUTER ANALYST SUPERVISOR Unavailable [phone] Naomie Johnson RN Unavailable Monday, Bina HUSBANDRY PERSON Unavailable [phone] Rosa Edwards RN Unavailable Humera Fontenot HUSBANDRY PERSON Unavailable Encounter Details Date Type Department Care Team (Late st Contact Info) Description 08/14/2023 Orders Only [facility] [place] [facility] [address] [place] [address] Unallocated, Noms Provider, [address] [place], [place] [address] Social History Tobacco Use Types Packs/Day Years [...] week 11/09/2022 How often do you attend [facility] or mosque services? More than 4 times per year [...] and heating? Not hard at all 11/09/2022 [facility] of Occupat ional Health - Occupational [...] Hooper [address] [place] [address] Franny Salazar PA [address] 110 [place] [address] documented as of this encounter Procedures Procedure Name Priority Date/Time Associated Diagnosis Comments ELECTROCARDIOGRAM REPORT Routine 024 1:54 PM EDT documented in this encounter Results * Electrocardiogram Report (08/12/2023 1:54 PM EDT) us Noms Provider Unallocated MD IN CLINIC/BEDSIDE O RDERABLES Final Result documented in this encounter Visit Diagnoses Not on filedocumented in this encounter Care Teams Cigarette Package Examiner Relationship Specialty Start Date End Date Erika Gaviria MD [address] [place] [address] PCP - General Family Medicine 11/15/22 Erika Gaviria MD [address] [place] [address] PCP - Selene IVORY 04/24/23 10/22/23 Erika Gaviria MD [address] [place] [address] PCP - S [facility] 07/24/23 10/22/23 Karolyn Rangel NP [address] [place] [address] PCP - Selene IVORY 10/23/23 12/23/23 Kate Slater COMPUTER ANALYST SUPERVISOR PCP - Selene IVORY 12/24/23 03/23/24 Naomie Johnson, JEREMY [address] [facility] [address] [facility] 230 [place] [address] Registered Nurse Family Medicine 04/04/24 04/10/24Monday, TESS Curran [address] [place] [address] Licensed Practical Nurse Family Medicine 04/10/24 Rosa Edwards, RN [address] [place] [address] Licensed Practical Nurse Family Medicine 05/31/2407/12 Humera Fontenot LPN 112 [facility] 110 [place] [address] 07/12/24 documented as of this encounter
--- OUTSIDE RECORDS SUMMARY | 2025-01-16 07:07 | XMS_ITS | Encounter Summary ---
Author Organization [facility] Address [address] [place] [address] Care Team Providers Care Radiology Specialist Name Role Phone Erika Gaviria MD Primary Care Provider [phone] Erika Gaviria MD Unavailable Erika Gaviria MD Unavailable Karolyn Rangel PULP PRESS TENDER Unavailable Kate Slater PULP PRESS TENDER Unavailable Naomie Johnson RN Unavailable Monday, Bina MOTION PICTURE SET GRIP Unavailable [phone] Rosa Edwards RN Unavailable [phone] Humera Fontenot MOTION PICTURE SET GRIP Unavailable Encounter Details Date Type Department Care Team (Late st Contact Info) Description 08/15/2023 Abstract [facility] [place] [facility] [address] [facility] 110 [place] [address] Erika Gaviria MD [address] [facility] 110 [place], [place] [address] Social History Tobacco Use Types Packs/Day Years [...] week 11/09/2022 How often do you attend [facility] or buddhism services? More than 4 times per year 11/09/2022 Do you belong to any clubs o r organizations such as voodoo groups, unions, fraternal or athletic groups, or [...] and heating? Not hard at all 11/09/2022 [facility] [place] of Occupat ional Health - Occupational Stress [...] [place] Hooper [address] [place] [address] Franny Salazar PA [address] [place] [address] documented as of this encounter Visit Diagnoses Not on filedocumented in this encounter Care Teams Radiology Specialist Relationship Specialty Start Date End Date Erika Gaviria MD [address] [place] [address] PCP - General Family Medicine 11/15/22 Erika Gaviria MD [address] [place] [address] PCP - Selene IVORY 04/24/23 10/22/23 Erika Gaviria MD [address] [place] [address] PCP - FFS [facility] 07/24/23 10/22/23 Karolyn Rangel, PULP PRESS TENDER [address] [place] [address] PCP - Selene IVORY 10/23/23 12/23/23 Kate Slater PULP PRESS TENDER PCP - Selene IVORY 12/24/23 03/23/24 Naomie Johnson RN [address] [facility] 230 [place] [address] Registered Nurse Family Medicine 04/04/24 04/10/24MondayBina LPN [address] [place] [address] Licensed Practical Nurse Family Medicine 04/10/24 Rosa Edwards, JEREMY [address] [facility] [place] [address] Licensed Practical Nurse Family Medicine 05/31/2407/12 Humera Fontenot LPN [address] [place] [address] 07/12/24 documented as of this encounter
--- OUTSIDE RECORDS SUMMARY | 2025-01-16 07:07 | XMS_ITS | Encounter Summary ---
Author Organization [facility] Address [address] [place] [address] [place] [address] Care Team Providers Care Sweep Press Operator Name Role Phone Erika Gaviria MD Primary Care Provider [phone] Humera Fontenot REIMBURSEMENT REPRESENTATIVE Unavailable Encounter Details Date Type Department Care Team (Late st Contact Info) Description 11/13/2024 Abstract [facility] [address] [facility] 110 [place] [address] Erika Gaviria MD 112 [facility] 110 [place] [address] Social History Tobacco Use Types Packs/Day Years [...] How often do you attend chur or bahai services? More than 4 times per year 01/06/2024 Do you belong to any clubs o r organizations such as jain groups, unions, fraternal or athletic groups, or [...] Answer Date Recorded Patient Health Questionnaire-2 Score 0 11/12/2024 [facility] of Occupat ional Health - Occupational [...] place to sleep or slept in a long term (including now)? No 11/09/2022 Housing Stability Vital Sign Answer Michael e Recorded In the last 12 months, was t here a time when you were not able to pay the mortgage or rent on time? No 04/12/2024 In the past 12 months, how m any times have you moved where you were living? 0 04/12/2024 At any time in the past 12 m [facility], were you homeless or living in a long term (including now)? No 04/12/2024 Comments Unknown Sex [...] Visit [facility] [place] [address] [facility] 110 [place] [address] Franny Salazar PA [address] [facility] 110 [place] [address] documented as of this encounter Visit Diagnoses Not on filedocumented in this encounter Additional Health Concerns Assessment Noted Time PHQ-9 Depression Total Score: 5 01/06/20 24 5:38 AM EDT documented as of this encounter Care Teams Sweep Press Operator Relationship Specialty Start Date End Date Erika Gaviria MD [address] [address] PCP - General Family Medicine 11/15/22 Humera Fontenot LPN [address] [address] 07/12/24 documented as of this encounter
--- OUTSIDE RECORDS SUMMARY | 2025-01-16 07:07 | XMS_ITS | Encounter Summary ---
Author Organization [facility] Address [address] [facility] [place] [address] Care Team Providers Care Rn Patient Services Name Role Phone Erika Gaviria MD Primary Care Provider [phone] FontenotHumera TESS Unavailable Encounter Details Date Type Department Care Team (Latest Contact Info) Description 01/15/2025 Travel Social History Tobacco Use Types Packs/Day Years [...] material from your doctor or pharmacy? Sometimes 01/15/2025 Humiliation, Afraid, Rape, and Kick questionnair e Answer Date Recorded Within the last year, have y ou been afraid of your partner or ex-partner? No 01/15/2025 Within the last year, have y ou been humiliated or emotionally abused in other ways by your partner or ex-partner? No Within the last year, have y ou been kicked, hit, slapped, or otherwise physically hurt by your partner or ex-partner? No 01/15/2025 Within the last year, have y ou been raped or forced to have any kind of sexual activity by your partner or ex-partner? No 01/15/2025 Social Connection and Isolat ion Panel [NHANES] Answer Date Recorded In a typical week, how many times do you talk on the phone with family, friends, or neighbors? More than three times a week 01/15/2025 How often do you get togethe r with friends or relatives? More than three times a week 01/15/2025 How often do you attend chur ch or temple services? More than 4 times per year 01/15/2025 Do you belong to any clubs o r organizations such as islam groups, unions, fraternal or athletic groups, or school groups? Yes 01/15/2025 How often do you attend meet ings of the clubs or organizations you belong to? More than 4 times per year 01/15/2025 Are you , , di vorced, , never , or living with a partner? 01/15/2025 AUDIT-C Answer Date Recorded Q1: How often do you have a drink containing alc ohol? Monthly or less 01/15/2025 Q2: How many drinks containi ng alcohol do you have on a typical day when you are drinking? 1 or 2 01/15/2025 Q3: How often do you have si x or more drinks on one occasion? Less than monthly 01/15/2025 Overall Financial Resource Strain (CARDIA) Answe r Date Recorded How hard is it for you to pa y for the very basics like food, housing, medical care, and heating? Somewhat hard 01/15/2025 PHQ-2 Answer Date Recorded Patient Health Questionnaire-2 Score 1 01/15/2025 [facility] of Occupat ional [facility] - Occupational Stress Questionnaire Answer Date Recorded [...] exercise (like a brisk walk)? 2 days 01/15/2025 On average, how many minutes do you engage in exercise at this level? 20 min 01/15/2025 Hunger Vital Sign Answer Date Recorded Within the past 12 months, y ou worried that your food would run out before you got the money to buy more. Never true 01/16/20 25 Within the past 12 months, t he food you bought just didn't last and you didn't have money to get more. Never true 01/15/2025 PRAPARE - Transportation Answer Date Re corded In the past 12 months, has l ack of transportation kept you from medical appointments or from getting medications? No 12/24 In the past 12 months, has l ack of transportation kept you from meetings, work, or from getting things needed for daily living? No 01/15/2025 Housing Stability Vital Sign Answer Michael e [...] a senior care (including now)? No 11/09/2022 Housing Stability Vital Sign Answer Michael e Recorded In the last 12 months, was t here a time when you were not able to pay the mortgage or rent on time? No 01/15/2025 In the past 12 months, how m any times have you moved where you were living? 0 01/15/2025 At any time in the past 12 m [facility], were you homeless or living in a senior care (including now)? No 01/15/2025 Comments Unknown Sex and Gender Information Value Date Recorded Sex Assigned at Not on file Legal Sex Female 8:00 PM EDT Gender Identity Not on file Sexual Orientation Not on file documented as of this encounter Functional Status * Audit-C Score Answer Date of Assessment Author 2 01/15/2025 9:02 AM EDT Carli, Generic * Q1: How often do you have a drink containing alcohol? Answer Date of Assessment Author Monthly or less 01/15/2025 9:02 AM EDT Carli, Generic * Q2: How many drinks containing alcohol do you have on a typical day when you are drinking? Answer Date of Assessment Author 1 or 2 01/15/2025 9:02 AM EDT Carli, Generic * Q3: How often do you have six or more drinks on one occasion? Answer Date of Assessment Author Less than monthly 01/15/2025 9:02 AM EDT Mychart , Generic * Over the past 2 weeks, how often have you been bothered by any of the following problems? Question Answer Date of Assessment Author Patient Health Questionnaire-2 Score 1 12/24 9:08 AM EDT Mychart, Generic * Little interest or pleasure in doing things Answer Date of Assessment Author Not at all 01/15/2025 9:08 AM EDT Mychart, Generic * Feeling down, depressed, or hopeless Answer Date of Assessment Author Several days 01/15/2025 9:08 AM EDT Mychart, Generic * Question Answer Date of Assessment Author Patient Health Questionnaire-9 Score 8 12/24 9:08 AM EDT Mychart, Generic * Trouble falling or staying asleep, or sleeping too much Answer Date of Assessment Author Nearly every day 01/15/2025 9:08 AM EDT Mychart, Generic * Feeling tired or having little energy Answer Date of Assessment Author More than half the days 01/15/2025 9:08 AM EDT M ychart, Generic * Poor appetite or overeating Answer Date of Assessment Author More than half the days 01/15/2025 9:08 AM EDT M ychart, Generic * Feeling bad about yourself - or that you are a failure or have let yourself or your family down Answer Date of Assessment Author Not at all 01/15/2025 9:08 AM EDT Mychart, Generic * Trouble concentrating on things, such as reading the newspaper or watching television Answer Date of Assessment Author Not at all 01/15/2025 9:08 AM EDT Mychart, Generic * Moving or speaking so slowly that other people could have noticed? Or the opposite - being so fidgety or restless that you have been moving around a lot more than usual. Answer Date of Assessment Author Not at all 01/15/2025 9:08 AM EDT Mychart, Generic * Thoughts that you would be better off or hurting yourself in some way Answer Date of Assessment Author Not at all 01/15/2025 9:08 AM EDT Mychart, Generic documented as of this encounter Plan of Treatment Upcoming Encounters Date Type Department Care Team (Late st Contact Info) Description 01/21/2025 8:00 AM EDT Office Visit [facility] [place] [facility] [address] [facility] [address] [place] [address] Franny Salazar PA [address] [facility] [address] [place] [address] documented as of this encounter Visit Diagnoses Not on filedocumented in this encounter Additional Health Concerns Assessment Noted Time PHQ-9 Depression Total Score: 5 01/06/20 24 5:38 AM EDT documented as of this encounter Care Teams Rn Patient Services Relationship Specialty Start Date End Date Erika Gaviria MD [address] [facility] [address] [place] [address] PCP - General Family Medicine 11/15/22 Humera Fontenot LPN [address] [facility] [address] [place] [address] 07/12/24 documented as of this encounter
--- OUTSIDE RECORDS SUMMARY | 2025-01-16 07:07 | XMS_ITS | Encounter Summary ---
Author Organization [facility] Address [address] [facility] [place] [address] Care Team Providers Care Facilities Plant Engineer Name Role Phone Erika Gaviria MD Primary Care Provider [phone] Monday, Bina SAFE AND VAULT INSTALLER Unavailable [phone] Rosa Edwards RN Unavailable Fontenot, Humera SAFE AND VAULT INSTALLER Unavailable Encounter Details Date Type Department Care Team (Late st Contact Info) Description 05/23/2024 Abstract [facility] [place] [facility] 112 [facility] 110 [place] [id number] Erika Gaviria MD 112 [facility] 110 [place] [address] Social History Tobacco Use Types Packs/Day Years [...] week 01/06/2024 How often do you attend [facility] or yarsani services? More than 4 times per year 01/06/2024 Do you belong to any clubs o r organizations such as buddhism groups, unions, fraternal or athletic groups, or [...] Recorded Patient Health Questionnaire-2 Score 1 01/06/2024 [facility] [place] of Occupat ional Health - Occupational Stress [...] to sleep or slept in a senior living (including now)? No 11/09/2022 Housing Stability Vital Sign Answer Michael e Recorded In the last 12 months, was t here a time when you were not able to pay the mortgage or rent on time? No 04/12/2024 In the past 12 months, how m any times have you moved where you were living? 0 04/12/2024 At any time in the past 12 m [facility], were you homeless or living in a senior living (including now)? No 04/12/2024 Comments Unknown Sex and Gender Information Value Date Recorded Sex Assigned at Not on file Legal Sex Female 8:00 PM EDT Gender Identity Not on file Sexual Orientation Not on file documented as of this encounter Plan of Treatment Upcoming Encounters Date Type Department Care Team (Late st Contact Info) Description 01/21/2025 8:00 AM EDT Office Visit [facility] [place] [facility] [address] [facility] [address] [place] [address] Franny Salazar PA [address] [facility] [address] [place] [address] documented as of this encounter Visit Diagnoses Not on filedocumented in this encounter Additional Health Concerns Assessment Noted Time PHQ-9 Depression Total Score: 5 01/06/20 24 5:38 AM EDT documented as of this encounter Care Teams Facilities Plant Engineer Relationship Specialty Start Date End Date Erika Gaviria MD [address] [facility] [address] [place] [address] PCP - General Family Medicine 11/15/22MondayBina LPN [address] [place] [address] Licensed Practical Nurse Family Medicine 04/10/24 Rosa Edwards, RN [address] [place] [address] Licensed Practical Nurse Family Medicine 05/31/2407/12 Humera Fontenot LPN [address] [facility] 110 [place] [address] 07/12/24 documented as of this encounter
--- OUTSIDE RECORDS SUMMARY | 2025-01-16 07:07 | XMS_ITS | Patient Health Record ---
Author Organization [facility] Address [address] [place] [id number] Care Team Providers Care Painter Drum Name Role Phone Shanna Lloyd Unavailable [phone] Xenia Rascon Unavailable [phone] Allergies No Known Allergies Reason For Referral No Information Medications Medication SIG (Take, Route, Frequency, Duration) Notes Start Date End Date Status Levothyroxine Sodium Active hydroCHLOROthiazide 25 MG take 1 tablet by mouth every morning Oral; Duration: 90 Active Pantoprazole Sodium 40 MG TAKE 1 tablet Orally daily Oral; Duration: 30 Active Ventolin HFA 108 (90 Base) MCG/ACT inhale 2 puffs by mouth INTO THE LUNGS every 4 hours if needed Inhalation; Duration: 16 Active Montelukast Sodium 10 MG take 1 tablet b y mouth every evening Oral; Duration: 30 Active Rosuvastatin Calcium 10 MG Oral; Duration: 30 Not-Taking Social History Tobacco Use: Social History Observation Description Date Details (start date - stop date) Never Smoker NA - NA Sex Assigned At : Social History Observation Description Sex Assigned At Female Tobacco Use/Smoking Question Answer Notes Tobacco use: nonsmoker Problems Problem Type SNOMED Code ICD Code Onset Dates Problem Status W/U Status Risk Notes Problem Body mass index 25-29 - overweight (609050616) BMI 28.0-28.9, adult (Z68.28) Active confirmed Vital Signs Heart Rate 92 /min 03/11/2024 Blood pressure diastolic 84 mm Hg 03/11/2024 Weight-kg 70.31 kg 03/11/2024 Height 62 in 03/11/2024 Blood pressure systolic 123 mm Hg 03/11/2024 Weight 155 lbs 03/11/2024 BMI 28.35 kg/m2 03/11/2024 Encounters Encounter Location Date Provider Diagnosis [facility] Main [address] [place], [place] [id number] 03/11/2024 Xenia Abiodun Encounter for scre ening for dental disorders Z13.84 and Encounter for dental examination and cleaning without abnormal findings Z01.20 Assessments Encounter Date Diagnosis (ICD Code) Assessment Notes Treatment Notes Treatment Clinical Notes Section Notes 03/11/2024 Encounter for screening for dental disorders (ICD-10 - Z13.84) 03/11/2024 Encounter for dental examination and cleaning without abnormal findings (ICD-10 - Z01.20) Plan Of Treatment No Information Insurance Providers Payer Name Payer Address Payer Phone Subscriber Number Group Number Insured Name Patient Relationship to Insured Coverage Start Date Coverage End Date [employer] [address] [address] [place] [address] [id number] Анна Amaya Self - patient is the insured 4 DMedicaid Medicare Crossover [address] [place] [address] [id number] Анна Amaya Self - patient is the insured 3
--- OUTSIDE RECORDS SUMMARY | 2025-01-16 07:07 | XMS_ITS | Encounter Summary ---
Author Organization [facility] Address [address] [facility] [place] [address] Care Team Providers Care Machine I Engraver Name Role Phone Erika Gaviria MD Primary Care Provider [phone] Humera Fontenot LPN Unavailable Encounter Details Date Type Department Care Team (Late st Contact Info) Description 11/13/2024 Results Follow-Up [facility] [address] [facility] 110 [place] [address] Franny Salazar, PA 112 [facility] 110 [place] [address] ALL FOLIC ACID, VITAMIN B12 Social History Tobacco Use Types Packs/Day Years [...] How often do you attend chur or adventism services? More than 4 times per year 01/06/2024 Do you belong to any clubs o r organizations such as pentecostal groups, unions, fraternal or athletic groups, or [...] Recorded Patient Health Questionnaire-2 Score 0 11/12/2024 [facility] of Occupat ionky Health - Occupational Stress Questionnaire Answer Date [...] place to sleep or slept in a prison (including now)? No 11/09/2022 Housing Stability Vital Sign Answer Michael e Recorded In the last 12 months, was t here a time when you were not able to pay the mortgage or rent on time? No 04/12/2024 In the past 12 months, how m any times have you moved where you were living? 0 04/12/2024 At any time in the past 12 m [facility], were you homeless or living in a prison (including now)? No 04/12/2024 Comments Unknown Sex [...] Visit [facility] [place] [facility] [address] [facility] 110 [place] [address] Franny Salazar PA [address] [facility] 110 [place] [address] documented as of this encounter Visit Diagnoses Not on filedocumented in this encounter Additional Health Concerns Assessment Noted Time PHQ-9 Depression Total Score: 5 01/06/20 24 5:38 AM EDT documented as of this encounter Care Teams Machine I Engraver Relationship Specialty Start Date End Date Erika Gaviria MD 112 [facility] 110 [place] [address] PCP - General Family Medicine 11/15/22 Humera Fontenot LPN 112 [facility] 110 [place] [address] 07/12/24 documented as of this encounter
--- OUTSIDE RECORDS SUMMARY | 2025-01-16 07:07 | XMS_ITS | Encounter Summary ---
Author Organization [facility] Address [address] [facility] [place] [address] Care Team Providers Care Utility Person Name Role Phone Erika Zee MD Primary Care Provider [phone] Karolyn Rangel TRANSPORTATION DIRECTOR Unavailable Kate Slater TRANSPORTATION DIRECTOR Unavailable Naomie Johnson RN Unavailable [phone] Monday, Bina FAMILY AND DIVORCE LEGAL ASSISTANT Unavailable [phone] Rosa Edwards RN Unavailable [phone] FontenotHumera FAMILY AND DIVORCE LEGAL ASSISTANT Unavailable Encounter Details Date Type Department Care Team (Late st Contact Info) Description 10/30/2023 Clinisync Result Encounter [facility] External Department Unsolicited Erika Zee MD [address] [facility] [address] [place] [address] Social History Tobacco Use Types Packs/Day Years [...] any clubs o r organizations such as cheondoism groups, unions, fraternal or athletic groups, or [...] and heating? Not hard at all 11/09/2022 [facility] of Occupat ional Health - Occupational Stress [...] a group home (including now)? No 11/09/2022 Comments Unknown Sex [...] Visit [facility] [place] [facility] [address] [facility] 110 [place] [address] Franny Salazar PA [address] [facility] 110 [place] [address] documented as of this encounter Procedures Procedure Name Priority Date/Time Associated Diagnosis Comments MM TOMOSYNTHESIS SCREENING BI 10/30/2023 7:21 AM EDT documented in this encounter Results * MM TOMOSYNTHESIS SCREENING BI (10/30/2023 7:21 AM EDT) Anatomical Region Laterality Modality Other 10/30/2023 7:21 AM EDT Narrative 10/30/2023 7:22 AM EDT [address] [address] Mammography Report Signed Patient: АННА AMAYA V MR#: [id number] : 1960 Acct:[id number] Age/Sex: 63 / F ADM Date: 10/27/23 Loc: MAMMO Attending Dr: ERIKA ZEE Ordering Physician: ERIKA ZEE Results: Date of Service: 10/27/23 Follow Up: Procedure(s): MM tomosynthesis screening BI Accession Number(s): [id number] cc: ERIKA ZEE Patient Name: АННА AMAYA MR#: [id number] : 1960 Exam Date: 10/27/2023 Ordering Doctor: [...] Treatments None Family Cancers None LOCATION: [facility] BREAST COMPOSITION: There are scattered areas of [...] Dictated By: Julian Casey M.D. Signed By: 10/30/23721 DD/ 0 TD/TT: Fish Farm Manager: Procedure Note Radiology, Radiologist, MD - 10/30/2023 [place] [address] Mammography Report Signed Patient: АННА AMAYA VMR#: [id number] : 1960cct:[id number] Age/Sex: 63 / FADM Date: 10/27/23 Loc: MAMMO Attending Dr: ERIKA ZEE Ordering Physician: ERIKA ZEEResults: Date of Service: 10/27/23Follow Up: Procedure(s): MM tomosynthesis screening BI Accession Number(s): [id number] cc: ERIKA ZEE Patient Name: АННА AMAYA MR#: [id number] : 1960 Exam Date: 10/27/2023 Ordering Doctor: DR ERIKA ZEE M.D. RADIOLOGY REPORT PROCEDURE: MM TOMOSYNTHESIS SCREENING BI COMPARISON: MM TOMOSYNTHESIS SCREENING BI, 10/21/2022. MG MAMM [id number] HOLLY CAD, 10/20/2021. INDICATIONS: Screening Calculator Name NCI Breast Cancer Risk Assessment Tool 5 Year Breast Cancer Risk 0.90% Lifetime Breast Cancer Risk 4.20% Personal Breast Cancer No Personal Ovarian Cancer No Treatments None Family Cancers None LOCATION: [facility] BREAST COMPOSITION: There are scattered areas of [...] on 10/30/2023 at 07:21 Dictated By: Julian Casye M.D. Signed By:10/30/23721 DD/ 0 TD/TT: Fish Farm Manager: Erika Zee MD [facility] Final Result documented in this encounter Visit Diagnoses Not on filedocumented in this encounter Care Teams Utility Person Relationship Specialty Start Date End Date Erika Zee MD [address] [facility] [place] [address] PCP - General Family Medicine 11/15/22 Karolyn Rangel, TRANSPORTATION DIRECTOR [address] [facility] [address] [place] [address] PCP - Selene IVORY 10/23/23 12/23/23 Kate Slater NP PCP - Selene IVORY 12/24/23 03/23/24 Naomie Johnson RN [address] [facility] [address] [place] [address] Registered Nurse Family Medicine 04/04/24 04/10/24MondayBina LPN [address] [facility] 110 [place] [address] Licensed Practical Nurse Family Medicine 04/10/24 Rosa Edwards, JEREMY [address] [place] [address] Licensed Practical Nurse Family Medicine 05/31/2407/12 Humera Fontenot LPN [address] [facility] 110 [place] [address] 07/12/24 documented as of this encounter
--- OUTSIDE RECORDS SUMMARY | 2025-01-16 07:07 | XMS_ITS | Encounter Summary ---
Author Organization [facility] Address [address] [place] [address] [place] [address] Care Team Providers Care Aquatic Habitat Biologist Name Role Phone Erika Gaviria MD Primary Care Provider Humera Fontenot LPN Unavailable Encounter Details Date Type Department Care Team (Late st Contact Info) Description 08/09/2024 Abstract [facility]ATION [facility] [address] [place] [address] Humera Fontenot LPN [address] [facility] [place] [address] Social History Tobacco Use Types Packs/Day Years [...] How often do you attend chur or protestant services? More than 4 times per year 01/06/2024 Do you belong to any clubs o r organizations such as baptism groups, unions, fraternal or athletic groups, or [...] Patient Health Questionnaire-2 Score 1 01/06/2024 [facility] of Occupat ional Health - Occupational Stress [...] place to sleep or slept in a custodial (including now)? No 11/09/2022 Housing Stability Vital Sign Answer Michael e Recorded In the last 12 months, was t here a time when you were not able to pay the mortgage or rent on time? No 04/12/2024 In the past 12 months, how m any times have you moved where you were living? 0 04/12/2024 At any time in the past 12 m [facility], were you homeless or living in a custodial (including now)? No 04/12/2024 Comments Unknown Sex [...] Visit [facility] [place] [facility] [address] [facility] 110 [place] [address] Franny Salazar PA [address] [facility] 110 [place] [address] documented as of this encounter Visit Diagnoses Not on filedocumented in this encounter Additional Health Concerns Assessment Noted Time PHQ-9 Depression Total Score: 5 01/06/20 24 5:38 AM EDT documented as of this encounter Care Teams Aquatic Habitat Biologist Relationship Specialty Start Date End Date Erika Gaviria MD [address] [address] PCP - General Family Medicine 11/15/22 Humera Fontenot LPN [address] [address] 07/12/24 documented as of this encounter
--- OUTSIDE RECORDS SUMMARY | 2025-01-16 07:07 | XMS_ITS | Encounter Summary ---
Author Organization [facility] Address [address] [facility] [address] [place] [address] Care Team Providers Care Softlines Supervisor Name Role Phone Erika Gaviria MD Primary Care Provider Rosa Edwards RN Unavailable [phone] Humera Fontenot LPN Unavailable Encounter Details Date Type Department Care Team (Late st Contact Info) Description 06/14/2024 Abstract [facility] [place] [facility] [address] [facility] 110 [place] [address] Erika Gaviria MD 112 [facility] 110 [place] [address] Social History Tobacco Use Types Packs/Day Years [...] week 01/06/2024 How often do you attend [facility] or presybeterian services? More than 4 times per year [...] Recorded Patient Health Questionnaire-2 Score 1 01/06/2024 [facility] of Occupat ional Health - [...] any time in the past 12 m [facility], were you homeless or living in a skilled nursing (including now)? No 04/12/2024 Comments Unknown Sex [...] Visit [facility] [place] [facility] [address] [facility] [address] [place] [address] Franny Salazar PA [address] [facility] [address] [place] [address] documented as of this encounter Visit Diagnoses Not on filedocumented in this encounter Additional Health Concerns Assessment Noted Time PHQ-9 Depression Total Score: 5 01/06/20 24 5:38 AM EDT documented as of this encounter Care Teams Softlines Supervisor Relationship Specialty Start Date End Date Erika Gaviria MD [address] [facility] [place] [address] PCP - General Family Medicine 11/15/22 Rosa Edwards, RN [address] [place] [address] Licensed Practical Nurse Family Medicine 05/31/2407/12 Humera Fontenot LPN [address] [facility] [address] [place] [address] 07/12/24 documented as of this encounter
--- OUTSIDE RECORDS SUMMARY | 2025-01-16 07:07 | XMS_ITS | Encounter Summary ---
Author Organization [facility] Address [address] [place] [address] Care Team Providers Care Invoice Clerk Name Role Phone Erika Gaviria MD Primary Care Provider Franny Salazar Unavailable [phone] Erika Gaviria MD Unavailable Erika Gaviria MD Unavailable Karolyn Rangel BALLISTICS EXPERT Unavailable Kate Slater BALLISTICS EXPERT Unavailable Naomie Johnson RN Unavailable Monday, Bina PEDIATRIC NEUROLOGIST Unavailable [phone] Rosa Edwards RN Unavailable Humera Fontenot PEDIATRIC NEUROLOGIST Unavailable Encounter Details Date Type Department Care Team (Late st Contact Info) Description 01/24/2023 Orders Only [facility] [place] [facility] [address] [place] [address] [place] [address] A, Unknown Practice [address] [place] [address] Social History Tobacco Use Types [...] week 11/09/2022 How often do you attend [facility] or latter day services? More than 4 times per year 11/09/2022 Do you belong to any clubs o r organizations such as moravian groups, unions, fraternal or athletic groups, or [...] and heating? Not hard at all 11/09/2022 [facility] [place] of Occupat ional Health - Occupational Stress [...] 8:00 AM EDT [facility] [place] [facility] 110 [place] [address] Franny Salazar PA [address] [facility] 110 [place] [address] documented as of this encounter Procedures Procedure [...] on filedocumented in this encounter Care Teams Invoice Clerk Relationship Specialty Start Date End Date Erika Gaviria MD [address] [facility] 110 [place] [address] PCP - General Family Medicine 11/15/22 Franny Salazar PA [address] [facility] 110 [place] [address] PCP - [facility] 10/22/22 Erika Gaviria MD [address] [facility] 110 [place] [address] PCP - Selene IVORY 04/24/23 10/22/23 Erika Gaviria MD [address] [facility] 110 [place] [address] PCP - [facility] 07/24/23 10/22/23 Karolyn Rangel NP [address] [facility] [address] [place] [address] PCP - [facility] IV[facility] 10/23/23 12/23/23 Kate Slater NP PCP - [facility] IV[facility] 12/24/23 03/23/24 Naomie Johnson, JEREMY [address] [facility] [address] [place] [address] Registered Nurse Family Medicine 04/04/24 04/10/24Monday, TESS Curran [address] [facility] 110 [place] [address] Licensed Practical Nurse Family Medicine 04/10/24 Rosa Edwards RN [address] [place] [address] Licensed Practical Nurse Family Medicine 05/31/2407/12 Humera Fontenot LPN [address] [facility] 110 [place] [address] 07/12/24 documented as of this encounter
--- OUTSIDE RECORDS SUMMARY | 2025-01-16 07:07 | XMS_ITS | Encounter Summary ---
Author Organization [facility] Healthcare Address [address] [place] [address] [place] [address] Care Team Providers Care Shop Teacher Name Role Phone Erika Gaviria MD Primary Care Provider [phone] Humera Fontenot LPN Unavailable Encounter Details Date Type Department Care Team (Late st Contact Info) Description 01/08/2025 Patient Outreach [facility] POP[facility]ATION [facility] [address] [facility] [facility] [place] [address] Humera Fontenot LPN [address] [place] [address] [place] [address] Social History Tobacco Use Types Packs/Day Years [...] How often do you attend chur or jain services? More than 4 times [...] Recorded Patient Health Questionnaire-2 Score 0 11/12/2024 [facility] of Occupat ional Health - [...] place to sleep or slept in a half-way (including now)? No 11/09/2022 Housing Stability Vital Sign Answer Michael e Recorded In the last 12 months, was t here a time when you were not able to pay the mortgage or rent on time? No 04/12/2024 In the past 12 months, how m any times have you moved where you were living? 0 04/12/2024 At any time in the past 12 m [facility], were you homeless or living in a half-way (including now)? No 04/12/2024 Comments Unknown Sex and Gender Information Value Date Recorded Sex Assigned at Not on file Legal Sex Female 8:00 PM EDT Gender Identity Not on file Sexual Orientation Not on file documented as of this encounter Progress Notes * Humera Fontenot LPN - 01/08/2025 10:35 AM EDT Call to pt about scheduling MAW and for outreach. Pt states she is doing well right now and denies any concerns. Pt states she was actually just about to call to schedule Annual wellness. Pt also wanted to ask if PCP wanted any labs prior to this visit. I let pt I will call her back if PCP orders any labs prior to visit. * CHAN Elizondo - 01/08/2025 10:35 AM EDT Updated lab order placed for pt. She can have these done anytime after 01/15. * Humera Fontenot LPN - 01/08/2025 10:35 AM EDT Called pt to update on lab orders. No answer. Detailed message left with instructions to call back if has any questions. <January 08, 2025, 14:15 - Humera Fontenot LPN> Pt calls back and would like labs sent to [place]. Lab orders faxed to [place] documented in this encounter Plan of Treatment Upcoming Encounters Date Type Department Care Team (Late st Contact Info) Description 01/21/2025 8:00 AM EDT Office Visit [facility] [place] [facility] [address] [facility] 110 [place] [address] Franny Salazar PA [address] [facility] 110 [place] [address] Scheduled Orders Name Type Priority Associated Diagnoses Orde r Schedule CBC and differential Lab Routine Stage 3a chronic kidney disease ([facility]) Essential (primary) hypertension Medicare annual wellness visit, subsequent Thrombocytosis Expected: 01/08/2025 (Approximate), Expires: 01/08/2026 Comprehensive metabolic panel Lab Routine Stage 3a chronic kidney disease (CMS-HCC) Essential (primary) hypertension Medicare annual wellness visit, subsequent Elevated LDL cholesterol level Hypokalemia Expected: 01/08/2025 (Approximate), Expires: 01/08/2026 Lipid panel Lab Routine Essential (primary) hypertension Medicare annual wellness visit, subsequent Elevated LDL cholesterol level Expected: 01/08/2025 (Approximate), Expires: 01/08/2026 TSH W/REFLEX TO FT4 Lab Routine Medicare annual wellness visit, subsequent Acquired hypothyroidism Expected: 01/08/2025 (Approximate), Expires: 01/08/2026 documented as of this encounter Visit Diagnoses Diagnosis Stage 3a chronic kidney disease ([facility])- Primary Essential (primary) hypertension Unspecified essential hypertension Medicare annual wellness visit, subsequent Acquired hypothyroidism Unspecified hypothyroidism Elevated LDL cholesterol level Hypokalemia Hypopotassemia Thrombocytosis Essential thrombocythemia documented in this encounter Additional Health Concerns Assessment Noted Time PHQ-9 Depression Total Score: 5 01/06/20 24 5:38 AM EDT documented as of this encounter Care Teams Shop Teacher Relationship Specialty Start Date End Date Erika Gaviria MD 112 [facility] 110 [place] [address] PCP - General Family Medicine 11/15/22 Humera Fontenot LPN 112 [facility] 110 [place] [address] 07/12/24 documented as of this encounter
--- OUTSIDE RECORDS SUMMARY | 2025-01-16 07:07 | XMS_ITS | Encounter Summary ---
Author Organization [facility] Address [address] [place] [address] Care Team Providers Care Hooker Up Name Role Phone Erika Gaviria MD Primary Care Provider [phone] Humera Fontenot PLASTICS PATTERNMAKER Unavailable Encounter Details Date Type Department Care Team (Late st Contact Info) Description 11/12/2024 Abstract [facility] [address] [facility] 110 [place] [address] Erika Gaviria MD 112 [facility] 110 [place] [address] Social History Tobacco Use Types Packs/Day Years [...] How often do you attend chur or adventist services? More than 4 times per year 01/06/2024 Do you belong to any clubs o r organizations such as tenriism groups, unions, fraternal or athletic groups, or [...] Patient Health Questionnaire-2 Score 0 11/12/2024 [facility] of Occupat ional Health [...] any time in the past 12 m [facility], were you homeless or living in a long-term (including now)? No 04/12/2024 Comments Unknown Sex and Gender Information Value Date Recorded Sex Assigned at Not on file Legal Sex Female 8:00 PM EDT Gender Identity Not on file Sexual Orientation Not on file documented as of this encounter Functional Status * Over the past 2 weeks, how often have you been bothered by any of the following problems? Question Answer Date of Assessment Author Little interest or pleasure in doing things Not at all 11/12/2024 8:09 AM EDT Emilia Flores LP N Feeling down, depressed, or hopeless Not at all 11/12/2024 8:09 AM EDT Emilia Flores LP N Patient Health Questionnaire -2 Score 0 11/12/2024 8:09 AM EDT Emilia Flores LP N documented as of this encounter Plan of Treatment Upcoming Encounters Date Type Department Care Team (Late st Contact Info) Description 01/21/2025 8:00 AM EDT Office Visit [facility] [place] [facility] [address] [place] [address] [place] [address] Franny Salazar PA [address] [facility] [address] [place] [address] documented as of this encounter Visit Diagnoses Not on filedocumented in this encounter Additional Health Concerns Assessment Noted Time PHQ-9 Depression Total Score: 5 01/06/20 24 5:38 AM EDT documented as of this encounter Care Teams Hooker Up Relationship Specialty Start Date End Date Erika Gaviria MD [address] [place] [address] [place] [address] PCP - General Family Medicine 11/15/22 Humera Fontenot LPN [address] [facility] [address] [place] [address] 07/12/24 documented as of this encounter
--- OUTSIDE RECORDS SUMMARY | 2025-01-16 07:07 | XMS_ITS | Encounter Summary ---
Author Organization [facility] Address [address] [place] [address] Care Team Providers Care Access Control Officer Name Role Phone Erika Gaviria MD Primary Care Provider [phone] Humera Fontenot VIOLIN TUTOR Unavailable Encounter Details Date Type Department Care Team (Late st Contact Info) Description 11/12/2024 Abstract [facility] [address] [facility] 110 [place] [address] Eirka Gaviria MD 112 [facility] 110 [place] [address] Social History Tobacco Use Types Packs/Day Years [...] How often do you attend chur or hinduism services? More than 4 times per year 01/06/2024 Do you belong to any clubs o r organizations such as congregation groups, unions, fraternal or athletic groups, or [...] Recorded Patient Health Questionnaire-2 Score 0 11/12/2024 [facility] of Occupat ional Health - Occupational [...] any time in the past 12 m [facility], were you homeless or living in [...] [address] [place] [address] [place] [address] Franny Salazar PA [address] [facility] [address] [place] [address] documented as of this encounter Visit Diagnoses Not on filedocumented in this encounter Additional Health Concerns Assessment Noted Time PHQ-9 Depression Total Score: 5 01/06/20 24 5:38 AM EDT documented as of this encounter Care Teams Access Control Officer Relationship Specialty Start Date End Date Erika Gaviria MD [address] [facility] [address] [place] [address] PCP - General Family Medicine 11/15/22 Humera Fontenot LPN [address] [facility] [address] [place] [address] 07/12/24 documented as of this encounter
--- OUTSIDE RECORDS SUMMARY | 2025-01-16 07:07 | XMS_ITS | Encounter Summary ---
Author Organization [facility] Address [address] [place] [address] [place] [address] Care Team Providers Care Lehr Loader Name Role Phone Erika Gaviria MD Primary Care Provider [phone] Monday, Bina MANAGER DEVELOPMENTAL Unavailable [phone] Rosa Edwards RN Unavailable Fontenot, Humera MANAGER DEVELOPMENTAL Unavailable Encounter Details Date Type Department Care Team (Late st Contact Info) Description 05/28/2024 Abstract [facility] [place] [facility] 112 [facility] 110 [place] [address] Erika Gaviria MD 112 [facility] 110 [place] [address] Social History Tobacco Use Types Packs/Day Years [...] week 01/06/2024 How often do you attend [facility] or islam services? More than 4 times per year 01/06/2024 Do you belong to any clubs o r organizations such as hinduism groups, unions, fraternal or athletic groups, or [...] Recorded Patient Health Questionnaire-2 Score 1 01/06/2024 [facility] [place] of Occupat ional Health - Occupational Stress [...] place to sleep or slept in a fdc (including now)? No 11/09/2022 Housing Stability Vital Sign Answer Michael e Recorded In the last 12 months, was t here a time when you were not able to pay the mortgage or rent on time? No 04/12/2024 In the past 12 months, how m any times have you moved where you were living? 0 04/12/2024 At any time in the past 12 m [facility], were you homeless or living in a fdc (including now)? No 04/12/2024 Comments Unknown Sex and Gender Information Value Date Recorded Sex Assigned at Not on file Legal Sex Female 8:00 PM EDT Gender Identity Not on file Sexual Orientation Not on file documented as of this encounter Plan of Treatment Upcoming Encounters Date Type Department Care Team (Late st Contact Info) Description 01/21/2025 8:00 AM EDT Office Visit [facility] [place] [facility] [address] [facility] 110 [place] [address] Franny Salazar PA [address] [facility] [place] [address] documented as of this encounter Visit Diagnoses Not on filedocumented in this encounter Additional Health Concerns Assessment Noted Time PHQ-9 Depression Total Score: 5 01/06/20 24 5:38 AM EDT documented as of this encounter Care Teams Lehr Loader Relationship Specialty Start Date End Date Erika Gaviria MD [address] [facility] 110 [place] [address] PCP - General Family Medicine 11/15/22MondayBina LPN [address] [place] [address] Licensed Practical Nurse Family Medicine 04/10/24 Rosa Edwards, RN [address] [place] [address] Licensed Practical Nurse Family Medicine 05/31/2407/12 Humera Fontenot LPN [address] [facility] 110 [place] [address] 07/12/24 documented as of this encounter
--- OUTSIDE RECORDS SUMMARY | 2025-01-16 07:07 | XMS_ITS | Encounter Summary ---
Author Organization [facility] Address [address] [place] [address] [place] [address] Care Team Providers Care Top Dyeing Machine Loader Name Role Phone Erika Gaviria MD Primary Care Provider [phone] Rosa Edwards RN Unavailable Humera Fontenot LPN Unavailable Encounter Details Date Type Department Care Team (Late st Contact Info) Description 06/17/2024 Abstract [facility] [place] [facility] [address] [facility] 110 [place] [address] Erika Gaviria MD 112 [facility] 110 [place] [address] Social History Tobacco Use Types Packs/Day Years [...] How often do you attend [facility] or oriental orthodox services? More than 4 [...] Recorded Patient Health Questionnaire-2 Score 1 01/06/2024 [facility] of Occupat ional Health - Occupational [...] in a retirement (including now)? No 11/09/2022 Housing Stability Vital [...] were you homeless or living in a retirement (including now)? No 04/12/2024 Comments Unknown Sex [...] Visit [facility] [place] [address] [facility] 110 [place] [address] Franny Salazar PA [address] [facility] 110 [place] [address] documented as of this encounter Visit Diagnoses Not on filedocumented in this encounter Additional Health Concerns Assessment Noted Time PHQ-9 Depression Total Score: 5 01/06/20 24 5:38 AM EDT documented as of this encounter Care Teams Top Dyeing Machine Loader Relationship Specialty Start Date End Date Erika Gaviria MD [address] [facility] [address] [place] [address] PCP - General Family Medicine 11/15/22 Rosa Edwards, RN [address] [place] [address] Licensed Practical Nurse Family Medicine 05/31/2407/12 Humera Fontenot LPN [address] [facility] [address] [place] [address] 07/12/24 documented as of this encounter
--- OUTSIDE RECORDS SUMMARY | 2025-01-16 07:07 | XMS_ITS | Encounter Summary ---
Author Organization [facility] Address [address] [place] [address] [address] Care Team Providers Care Travelers' Aid Worker Name Role Phone Erika Gaviria MD Primary Care Provider [phone] Kate Slater VALUE ADVISOR Unavailable Naomie Johnson RN Unavailable Monday, Bina ENTRY LEVEL SALES CONSULTANT Unavailable [phone] Rosa Edwards RN Unavailable FontenotHumera ENTRY LEVEL SALES CONSULTANT Unavailable Encounter Details Date Type Department Care Team (Late st Contact Info) Description 01/12/2024 Abstract [facility] [address] [facility] 110 [place] [address] Erika Gaviria MD 112 [facility] 110 [place], [place] [address] Social History Tobacco Use Types Packs/Day Years [...] 01/06/2024 How often do you attend [facility] or anabaptism services? More than 4 times per year 01/06/2024 Do you belong to any clubs o r organizations such as orthodoxy groups, unions, fraternal or athletic groups, or [...] Recorded Patient Health Questionnaire-2 Score 1 01/06/2024 [facility] [place] of Occupat ional Health - Occupational Stress [...] any time in the past [address] [facility], were you homeless or living in a long term (including now)? No 01/06/2024 Comments Unknown Sex [...] [place] [address] [facility] [address] [place] [address] Franny Salazar PA [address] [facility] [address] [place] [address] documented as of this encounter Visit Diagnoses Not on filedocumented in this encounter Additional Health Concerns Assessment Noted Time PHQ-9 Depression Total Score: 5 01/06/20 24 5:38 AM EDT documented as of this encounter Care Teams Travelers' Aid Worker Relationship Specialty Start Date End Date Erika Gaviria MD [address] [facility] 110 [place] [address] PCP - General Family Medicine 11/15/22 Kate Slater NP PCP - Selene IVORY 12/24/23 03/23/24 Naomie Johnson RN [address] [facility] [address] [place] [address] Registered Nurse Family Medicine 04/04/24 04/10/24MondayBina LPN [address] [facility] 110 [place] [address] Licensed Practical Nurse Family Medicine 04/10/24 Rosa Edwards RN [address] [place] [address] Licensed Practical Nurse Family Medicine 05/31/2407/12 Humera Fontenot LPN [address] [facility] 110 [place] [address] 07/12/24 documented as of this encounter
--- OUTSIDE RECORDS SUMMARY | 2025-01-16 07:07 | XMS_ITS | Encounter Summary ---
Author Organization [facility] Address [address] [place] [address] [place] [address] Care Team Providers Care Management Aide Name Role Phone Erika Gaviria MD Primary Care Provider [phone] Humera Fontenot FILLING MIXER Unavailable Encounter Details Date Type Department Care Team (Late st Contact Info) Description 12/16/2024 Abstract [facility] [address] [facility] 110 [place] [address] Erika Gaviria MD 112 [facility] 110 [place] [address] Social History Tobacco Use Types Packs/Day Years [...] Recorded Patient Health Questionnaire-2 Score 0 11/12/2024 [facility] of Occupat ional Health - Occupational [...] place to sleep or slept in a fpc (including now)? No 11/09/2022 Housing Stability Vital [...] time in the past 12 m [facility], were you homeless or living in a fpc (including now)? No 04/12/2024 Comments Unknown Sex [...] [address] [facility] 110 [place] [address] Franny [place]azar PA [address] [facility] 110 [place] [address] documented as of this encounter Visit Diagnoses Not on filedocumented in this encounter Additional Health Concerns Assessment Noted Time PHQ-9 Depression Total Score: 5 01/06/20 24 5:38 AM EDT documented as of this encounter Care Teams Management Aide Relationship Specialty Start Date End Date Erika Gaviria MD [address] [address] PCP - General Family Medicine 11/15/22 Humera Fontenot LPN [address] [address] 07/12/24 documented as of this encounter
--- OUTSIDE RECORDS SUMMARY | 2025-01-16 07:07 | XMS_ITS | Encounter Summary ---
Author Organization [facility] Address [address] [place] [address] [place] [address] Care Team Providers Care Law Firm Receptionist Name Role Phone Erika Gaviria MD Primary Care Provider [phone] Kate Slater OBSERVER GRAVITY PROSPECTING Unavailable Naomie Johnson RN Unavailable Monday, Bina INVESTOR RELATIONS COORDINATOR Unavailable [phone] Rosa Edwards RN Unavailable FontenotHumera INVESTOR RELATIONS COORDINATOR Unavailable Encounter Details Date Type Department Care Team (Late st Contact Info) Description 01/25/2024 Abstract [facility] [address] [facility] 110 [place] [address] Erika Gaviria MD 112 [facility] 110 [place], [place] [id number] Social History Tobacco Use Types Packs/Day Years [...] week 01/06/2024 How often do you attend [facility] or moravian services? More than 4 times per year 01/06/2024 Do you belong to any clubs o r organizations such as temple groups, unions, fraternal or athletic groups, or [...] Recorded Patient Health Questionnaire-2 Score 1 01/06/2024 [facility] [place] of Occupat ional Health - Occupational Stress [...] any time in the past 12 m [facility], were you homeless or living in a [...] [place] [address] [place] [place] [address] Franny [place]azar PA [address] [facility] [address] [place] [address] documented as of this encounter Visit Diagnoses Not on filedocumented in this encounter Additional Health Concerns Assessment Noted Time PHQ-9 Depression Total Score: 5 01/06/20 24 5:38 AM EDT documented as of this encounter Care Teams Law Firm Receptionist Relationship Specialty Start Date End Date Erika Gaviria MD [address] [facility] 110 [place] [address] PCP - General Family Medicine 11/15/22 Kate Slater NP PCP - Selene IVORY 12/24/23 03/23/24 Naomie Johnson RN [address] [facility] [address] [place] [address] Registered Nurse Family Medicine 04/04/24 04/10/24MondayBina LPN [address] [facility] 110 [place] [address] Licensed Practical Nurse Family Medicine 04/10/24 Rosa Edwards RN [address] [place] [address] Licensed Practical Nurse Family Medicine 05/31/2407/12 Humera Fontenot LPN [address] [facility] 110 [place] [address] 07/12/24 documented as of this encounter
--- OUTSIDE RECORDS SUMMARY | 2025-01-16 07:07 | XMS_ITS | Clinical Summary ---
Author Organization [facility] Healthcare Address [address] [place] [address] Care Team Providers Care Slab Miller Operator Name Role Phone Erika Zee MD Primary Care Provider [phone] Humera Fontenot LPN Unavailable Allergies No known active allergies Medications pantoprazole (ProtoNix) 40 MG EC tabletIndications: Gastroesophageal reflux disease without esophagitis TAKE 1 tablet Orally daily 100 tablet 3 4 Active albuterol HFA (Ventolin HFA) 90 mcg/act inhalerIndications :Moderate persistent asthma without complication (HCC) Inhale 2 puffs every 4 (four) hours if needed for wheezing or shortness of breath 18 g 5 4 Active cyclobenzaprine (Flexeril) 10 MG tablet Take 10 mg by mouth 3 (three) times a day as needed for muscle spasms Active busPIRone (Buspar) 5 MG tabletIndications: Stress reaction Take 1 tablet (5 mg) by mouth 2 (two) times a day as needed (Anxiety) 60 tablet 2 5 Active potassium chloride CR (K-Tab) 20 MEQ ER tabletIndications: Hypokalemia Take 1 tablet (20 mEq) by mouth in the morning and 1 tablet (20 mEq) before bedtime. Do not crush, chew, or split.. 5 Active rosuvastatin (Crestor) 10 MG tabletIndications: Elevated LDL cholesterol level Take 1 tablet (10 mg) by mouth 1 (one) time each day at the same time 100 tablet 3 5 Active hydroCHLOROthiazid e (HYDRODiuril) 25 MG tabletIndications: Benign hypertension Take 1 tablet (25 mg) by mouth Daily 100 tablet 3 5 Active levothyroxine (Synthroid, Levoxyl) 25 MCG tabletIndications: Acquired hypothyroidism Take 1 tablet (25 mcg) by mouth in the morning. Take on an empty stomach.. 100 tablet 3 5 Active montelukast (Singulair) 10 MG tabletIndications: Seasonal allergies Take 1 tablet (10 mg) by mouth at bedtime 100 tablet 3 5 Active Multiple Vitamin (multivitamin) tablet Take 1 tablet by mouth Daily Active DULoxetine (Cymbalta) [address] capsuleIndications :Other chronic pain Take 1 capsule (30 mg) by mouth Daily Do not crush or chew. 30 capsule 2 Active Active Problems Problem Noted Date Diagnosed Date Degeneration of intervertebr al disc of lumbar region with discogenic back pain 06/10/2024 Chronic pain of both knees 06/10/2024 CPAP (continuous positive airway pressure) depen dence 11/15/2022 Difficulty sleeping 11/15/2022 Acquired hypothyroidism 11/14/2022 Ankylosis, right shoulder 11/14/2022 Benign hypertension 11/14/2022 Dysphagia 11/14/2022 Elevated LDL cholesterol level 11/14/2022 Gastroesophageal reflux disease 11/14/2022 Generalized anxiety disorder 11/14/2022 History of total hysterectomy 11/14/2022 Hypokalemia 11/14/2022 Inflammation of right sacroiliac joint Moderate persistent asthma without complication 11/14/2022 EVIE (obstructive sleep apnea) 11/14/2022 Other chronic pain 11/14/2022 Overweight (BMI 25.0-29.9) 11/14/2022 Retinitis pigmentosa 11/14/2022 Seasonal allergies 11/14/2022 Tension headache 11/14/2022 Thrombocytosis 11/14/2022 Resolved Problems Problem Noted Date Diagnosed Date Resolved Date Stage 3a chronic kidney disease 11/14/2022 11/12/2024 Encounters Date Type Department Care Team Description 01/15/2025 Travel 01/08/2025 Patient Outreach [facility] [address] [place] [address] Humera Fontenot, SLIP COVER OPERATOR 12/17/2024 Refill [facility] [address] [place] [address] Emilia Flores, SLIP COVER OPERATOR Other chronic pain 12/16/2024 Abstract [facility] [address] [place] [address] Erika Zee MD 11/13/2024 Orders Only [facility] [address] [place] [address] Franny Salazar PA Other chronic pain (Primary Dx) 11/13/2024 Results Follow-Up [facility] [address] [place] [address] Franny Salazar PA ALL FOLIC ACID, VITAMIN B12 11/13/2024 Abstract [facility] [address] [place] [address] Erika Zee MD 11/12/2024 8:00 AM EDT Office Visit [facility] [address] [place] [address] Franny Salazar PA Stage 3b chronic kidney disease (CMS-HCC) (Primary Dx); Degeneration of intervertebral disc of lumbar region with discogenic back pain; Paresthesia of left leg; Chronic left hip pain; Generalized anxiety disorder 11/12/2024 Abstract [facility] [address] [place] [address] Erika Zee MD 11/12/2024 Abstract [facility] [address] [place] [address] Erika Zee MD 11/12/2024 Clinisync Result Encounter [facility] External Department Unsolicited Franny Salazar PA 11/12/2024 Bamboo flowsheet [facility] [address] [place] [address] Franny Salazar PA 11/12/2024 Travel 11/06/2024 Clinisync Result Encounter [facility] External Department Unsolicited Erika Zee MD 11/06/2024 Travel 11/06/2024 Patient Outreach [facility] [address] [place] [address] Humera Fontenot LPN from Last 3 Months Immunizations Immunization Administration Dates Next Due Influenza, Recombinant, inje ctable, preservative free 03/01/2024 Influenza, injectable, quadrivalent 03/21/2020 Influenza, injectable, quadr ivalent, preservative free 12/31/2022,01/12/2022,02/18/2021,01/03,01/25/2018,02/02/2016 Influenza, seasonal, intrade rmal, preservative free 01/03/2019,01/25/2018 Pneumococcal Conjugate PCV 13 02/02/2016 Pneumococcal Polysaccharide PPSV23 03/21/2020 RSV, recombinant, protein hope bunit RSVpreF, adjuvant reconstitu, 120mcg/0.5mL, PF (Arexvy) 06/07/2023 SARS-CoV-2, Unspecified 01/20/2022 Tdap 04/09/2019 Zoster, Recombinant 02/02/2022,12/01/2021 Family History Medical History Relation Name Comments Kidney disease Brother Hypertension Mother Kidney disease Mother Relation Name Status Comments Brother Father Mother Social History Tobacco Use Types Packs/Day Years Used Date Smoking Tobacco: Never Smokeless Tobacco: Never Tobacco Cessation:Counseling Given: Not Answered Alcohol Use Standard Drinks/Week Comments Yes 5 [...] 01/15/2025 How often do you attend chur or [...] Recorded Patient Health Questionnaire-2 Score 1 01/15/2025 [facility] - Occupational [...] in a fci (including now)? No 11/09/2022 Housing Stability Vital Sign Answer Michael e Recorded In the last 12 months, was t here a time when you were not able to pay the mortgage or rent on time? No 01/15/2025 In the past 12 months, how m any times have you moved where you were living? 0 01/15/2025 At any time in the past [address] [facility], were you homeless or living in a fci (including now)? No 01/15/2025 Comments Unknown Sex and Gender Information Value Date Recorded Sex Assigned at Not on file Legal Sex Female 8:00 PM EDT Gender Identity Not on file Sexual Orientation Not on file Last Filed Vital Signs Vital Sign Reading Time Taken Comments Blood Pressure 116/78 11/12/2024 8:07 AM EDT Pulse 91 11/12/2024 8:07 AM EDT Temperature - - Respiratory Rate 16 11/12/2024 8:07 AM EDT Oxygen Saturation 95% 11/12/2024 8:07 AM EDT Inhaled Oxygen Concentration - - Weight 70.8 kg (156 lb) 11/12/2024 8:07 AM EDT Height 154.9 cm (5' 1 ) 11/12/2024 8:07 AM EDT Body Mass Index 29.48 11/12/2024 8:07 AM EDT Plan of Treatment Upcoming Encounters Date Type Department Care Team (Late st Contact Info) Description 01/21/2025 8:00 AM EDT Office Visit [facility] [address] [facility] [address] [place] [address] Franny Salazar PA [address] [facility] [address] [place] [address] Health Maintenance Due Date Last Done Comments CT Colonography 1960 FIT-DNA 1960 FIT 1960 FOBT 1960 Sigmoidoscopy 1960 Influenza Vaccine (#1) 2024 , 12/31/2022, 01/12/2022, Additional history exists Medicare Annual Wellness (AWV) 01/09/2025 0 01/10/2024, 11/15/2022, 11/15/2022, Additional history exists Mammogram 11/06/2025 11/06/2024, 07/0 11/2023, 10/21/2022, Additional history exists Colonoscopy 11/21/2028 11/21/2018, 12/20/2017 Colorectal Cancer Screening 11/21/2028 Procedures Procedure Name Priority Date/Time Associated Diagnosis Comments XR HIP LT MIN 2V 11/12/2024 10:0 6 AM EDT VITAMIN B12 Routine 11/12/2024 9:18 AM EDT ALL FOLIC ACID Routine 11/12/2024 9:18 AM EDT MM TOMOSYNTHESIS SCREENING BI 11/06/2024 11:14 AM EDT COLONOSCOPY Routine 11/21/2018 12:00 PM EDT from Last 3 Months or Most Recently Relevant to Health Maintenance Results * XR HIP LT MIN 2V (11/12/2024 10:06 AM EDT) Anatomical Region Laterality Modality Other 11/12/2024 10:0 6 AM EDT Narrative 11/12/2024 10:08 [place] [address] XRay Report Signed Patient: АННА AMAYA V MR#: [id number] : 1960 Acct:[id number] Age/Sex: 64 / F ADM Date: 11/12/24 Loc: LAB Attending Dr: FRANNY SALAZAR Ordering Physician: FRANNY SALAZAR Date of Service: 11/12/24 Procedure(s): XR hip LT min 2V Accession Number(s): [id number] cc: ERIKA ZEE ; FRANNY SALAZAR [place] [address] Patient Name: АННА AMAYA MRN: [id number] date: 1960 Sex: F Assigned Patient Location: LAB Current Patient Location: LAB Accession/Order Number: [id number] Exam Date: 11/12/2024 10:05 Report Date: 11/12/2024 10:06 At the request of: FRANNY SALAZAR Procedure: XR hip LT min 2V LEFT HIP - 2 views: CLINICAL HISTORY: Chronic Left Hip Pain COMPARISON: None FINDINGS: Joint space of the hip appears maintained. No acute bony process. XR/XR hip LT min 2V IMPRESSION: NO ACUTE BONY PROCESS OR SIGNIFICANT DEGENERATIVE CHANGE. Impression dictated by: Lew Rosario Jr., D.O. 11/12/2024 10:06 AM Dictation Location: [place] [address] Electronically authenticated by: [id number] Y Date: 11/12/2024 10:06 Dictated By: Lew Rosario M.D. Signed By: 11/12/241007 DD/ 100 TD/TT: Dispensary Clerk: Procedure Note Radiology, Radiologist, - 11/12/2024 [place] [address] XRay Report Signed Patient: АННА AMAYA VMR#: [id number] : 1960cct:[id number] Age/Sex: 64 / FADM Date: 11/12/24 Loc: LAB Attending Dr: FRANNY SALAZAR Ordering Physician: FRANNY SALAZAR Date of Service: 11/12/24 Procedure(s): XR hip LT min 2V Accession Number(s): [id number] cc: ERIKA ZEE ; FRANNY SALAZAR [place] [address] Patient Name: АННА AMAYA MRN: [facility]:[id number] date: 1960 Sex: F Assigned Patient Location: LAB Current Patient Location: LAB Accession/Order Number: [id number] Exam Date: 11/12/2024 10:05 Report Date: 11/12/2024 10:06 At the request of: FRANNY SALAZAR Procedure: XR hip LT min 2V LEFT HIP - 2 views: CLINICAL HISTORY: Chronic Left Hip Pain COMPARISON: None FINDINGS: Joint space of the hip appears maintained. No acute bonyprocess. XR/XR hip LT min 2V IMPRESSION: NO ACUTE BONY PROCESS OR SIGNIFICANT DEGENERATIVE CHANGE. Impression dictated by: Lew Rosario Jr., D.O. 11/12/2024 10:06 AM Dictation Location: [place] [address] Electronically authenticated by: [id number] Y Date: 0:06 Dictated By: Lew Rosario M.D. Signed By:11/12/241007 DD/ 100 TD/TT: Dispensary Clerk: Franny Salazar PA [facility] IMAGING Final Result * VITAMIN B12 (11/12/2024 9:18 AM EDT) VITAMIN B12 863 232 - 1245 pg/mL [facility] Comment: Performed at: [address] [id number] Senior Examiner: Keegan Beckham PhD, Phone: [phone] 11/12/2024 9:18 AM EDT 11/12/2024 9:19 AM EDT Narrative CLINISYNC - 11/13/2024 5:07 AM EDT Franny GILES LAB BLOOD ORDERABLES Final Res ult [facility] * ALL FOLIC ACID (11/12/2024 9:18 AM EDT) FOLATE 24.20 8.60 - 58.90 ng/mL [facility] 11/12/2024 9:18 AM EDT 11/12/2024 9:19 AM EDT Narrative CLINISYNC - 11/12/2024 11:01 AM EDT us Franny GILES CLINIS[facility] Final Result * MM TOMOSYNTHESIS SCREENING BI (11/06/2024 11:14 AM EDT) Anatomical Region Laterality Modality Other 11/06/2024 11:1 4 AM EDT Narrative 11/06/2024 11:15 AM EDT [address] [address] Mammography Report Signed Patient: АННА AMAYA V MR#: [id number] : 1960 Acct:[id number] Age/Sex: 64 / F ADM Date: 11/06/24 Loc: MAMMO Attending Dr: ERKIA ZEE Ordering Physician: ERIKA ZEE Results: Date of Service: 11/06/24 Follow Up: Procedure(s): MM tomosynthesis screening BI Accession Number(s): [id number] cc: ERIKA ZEE Patient Name: АННА AMAYA MR#: [id number] : 1960 Exam Date: 11/06/2024 Ordering Doctor: DR ERIKA ZEE M.D. RADIOLOGY [...] Family Cancers None LOCATION: [facility] BREAST COMPOSITION: The breasts are almost entirely [...] Signed By: 11/06/24 1115 DD/ 1114 TD/TT: Dispensary Clerk: Procedure Note Radiology, Radiologist, MD - 11/06/2024 [place] [address] Mammography Report Signed Patient: АННА AMAYA VMR#: [id number] : 1960cct:[id number] Age/Sex: 64 / FADM Date: 11/06/24 Loc: MAMMO Attending Dr: ERIKA ZEE Ordering Physician: ERIKA ZEEResults: Date of Service: 11/06/24Follow Up: Procedure(s): MM tomosynthesis screening BI Accession Number(s): [id number] cc: YAYOLANDY IbanezLAURENCE Patient Name: АННА AMAYA MR#: [id number] : 1960 Exam Date: 11/06/2024 Ordering Doctor: DR ERIKA ZEE M.D. RADIOLOGY REPORT PROCEDURE: MM TOMOSYNTHESIS SCREENING BI COMPARISON: MM TOMOSYNTHESIS SCREENING BI, 10/27/2023. MMTOMOSYNTHESIS SCREENING BI, 10/21/2022. MG MAMM SCREEN 3D HOLLY CAD, 10/20/2021. MAMMO HOLLY SCREEN, 06/25/2009. INDICATIONS: Screening Calculator Name NCI Breast Cancer Risk Assessment Tool 5 Year Breast Cancer Risk 0.90% Lifetime Breast Cancer Risk 4.00% Personal Breast Cancer No Personal Ovarian Cancer No Treatments None Family Cancers None LOCATION: [facility] BREAST COMPOSITION: The breasts are almost entirely [...] 11:13 Dictated By: Jose Myers M.D. Signed By:11/06/24 1115 DD/ 1114 TD/TT: Dispensary Clerk: us Erika Zee MD [facility] IMAGING Final Result * Colonoscopy (11/21/2018 12:00 PM EDT) Anatomical Region Laterality Modality Endoscopy 11/21/2018 12:0 0 PM EDT Narrative 11/21/2018 12:00 PM EDT PERFORMED AT [facility] LOCATION:[id number] Normal Procedure Note CONVERSION, GENERIC - 09/07/2022 PERFORMED AT [facility] LOCATION:[id number] Normal us Erika Zee MD ENDOSCOPY PROCEDURE ORDERABLES F inal Result from Last 3 Months or Most Recently Relevant to Health Maintenance Insurance [address] [place] [address] [facility] MED[employer]AGE Care Teams Slab Miller Operator Relationship Specialty Start Date End Date Erika Zee MD [address] [facility] [address] [place] [address] PCP - General Family Medicine 11/15/22 Humera Fontenot LPN [address] [facility] [address] [place] [address] 07/12/24
--- OUTSIDE RECORDS SUMMARY | 2025-01-16 07:07 | XMS_ITS | Encounter Summary ---
Author Organization [facility] Address [address] [place] [address] Care Team Providers Care Fine Arts Teacher Name Role Phone Erika Gaviria MD Primary Care Provider Franny Salazar Unavailable [phone] Erika Gaviria MD Unavailable Erika Gaviria MD Unavailable Karolyn Rangel LAN ENGINEER Unavailable [phone] Kate Slater LAN ENGINEER Unavailable Naomie Johnson RN Unavailable [phone] Monday, Bina HR BUSINESS PARTNER CONSULTANT Unavailable [phone] Rosa Edwards RN Unavailable [phone] Humera Fontenot HR BUSINESS PARTNER CONSULTANT Unavailable Encounter Details Date Type Department Care Team (Late st Contact Info) Description 11/18/2022 Abstract [facility] [address] [facility] [address] [place] [address] Erika Gaviria MD [address] [facility] 110 [place] [address] Social History Tobacco Use Types Packs/Day Years [...] week 11/09/2022 How often do you attend [facility] or rastafari services? More than 4 times per year 11/09/2022 Do you belong to any clubs o r organizations such as sabianist groups, unions, fraternal or athletic groups, or [...] and heating? Not hard at all 11/09/2022 [facility] - [...] AM EDT Office Visit [facility] [place] [facility] [address] [facility] [address] [place] [address] Franny Salazar, PA [address] [facility] [address] [place] [address] documented as of this encounter Visit Diagnoses Not on filedocumented in this encounter Care Teams Fine Arts Teacher Relationship Specialty Start Date End Date Erika Gaviria MD [address] [facility] [address] [place] [address] PCP - General Family Medicine 11/15/22 Franny Salazar, PA [address] [facility] [address] [place] [address] PCP - [facility] 10/22/22 Erika Gaviria MD [address] [facility] [address] [place] [address] PCP - [place] 04/24/23 10/22/23 Erika Gaviria MD [address] [facility] [address] [place] [address] PCP - [facility] 07/24/23 10/22/23 Karolyn Rangel, LAN ENGINEER [address] [facility] [address] [place] [address] PCP - [place] 10/23/23 12/23/23 Kate Slater NP PCP - [place] [place] 12/24/23 03/23/24 Naomie Johnson, JEREMY [address] [facility] [address] [place] [address] Registered Nurse Family Medicine 04/04/24 04/10/24MonDiegoBina bedolla LPN [address] [facility] [address] [place] [address] Licensed Practical Nurse Family Medicine 04/10/24 Rosa Edwards, RN [address] [place] [address] Licensed Practical Nurse Family Medicine 05/31/2407/12 Humera Fontenot LPN [address] [facility] [address] [place] [address] 07/12/24 documented as of this encounter
[2025-01-16 07:14] LABS: Hematocrit 38.5 % (36.0-48.0); Hemoglobin 12.7 g/dL (12.0-16.0); Immature Granulocytes Abs Auto 0.01 10^3/uL (0.00-0.03); Immature Granulocytes Pct Auto 0.1 % (0.0-0.5); Lymphocytes Absolute Auto 2.3 10^3/uL (1.2-3.8); Mean Corpuscular HGB Conc 33.0 g/dL (29.9-35.2); Mean Corpuscular Hemoglobin 29.8 pg (26.7-34.0); Mean Corpuscular Volume 90.4 fL (81.0-99.0); Platelet Count 381 10^3/uL (150-450); Red Blood Count 4.26 10^6/uL (4.20-5.40); White Blood Count 7.0 10^3/uL (4.0-11.0)
[2025-01-16 07:53] LABS: Alanine Aminotransferase 14 U/L (14-59); Albumin Globulin Ratio 0.7; Albumin Level 3.5 g/dL (3.4-5.0); Alkaline Phosphatase 90 U/L (46-116); Anion Gap 10.1; Aspartate Amino Transferase 20 U/L (15-37); Blood Urea Nitrogen 14.0 mg/dL (7.0-18.0); Calcium 9.3 mg/dL (8.5-10.1); Carbon Dioxide 31.4 mmol/L (21.0-32.0); Chloride 103 mmol/L (98-107); Cholesterol 171 mg/dL (<=200); Estimated GFR (African America >60 (>=60 mL/min/1.73m^2); Estimated GFR (Non-African Ame 55 (>=60 mL/min/1.73m^2); Globulin 4.8 g/dL; Glucose 109 mg/dL (74-106); HDL Cholesterol 72 mg/dL (40-60); Potassium 3.5 mmol/L (3.5-5.1); Sodium 141 mmol/L (136-145); TSH W/ REFLEX FT4 4.100 uIU/mL (0.358-3.740); Total Protein 8.3 g/dL (6.4-8.2); Triglycerides 81 mg/dL (<=150); VLDL CHOLESTEROL 16.2 mg/dL
== END 2025-01-16 07:03 | disposition home or self-care (01) ==
LOC: LAB 07:04
PROVIDERS: PCP Family Medicine; Visit Provider Physician Assistant
DX: Z00.00 Encounter for general adult medical examination without abnormal findings (principal); I12.9 Hypertensive chronic kidney disease with stage 1 through stage 4 chronic kidney disease, or unspecified chronic kidney disease; N18.31 Chronic kidney disease, stage 3a; E78.00 Pure hypercholesterolemia, unspecified; E87.6 Hypokalemia; E03.9 Hypothyroidism, unspecified
CPT/HCPCS: 36415; 80053; 80061; 84439; 84443; 85025

== ENCOUNTER 2025-01-21 08:58 | Outpatient (OUT) | payer MEDICARE, SELFPAY ==
--- NOTE | 2025-01-21 | XR_ITS ---
The [address] [address] Patient Name: YOUSUF ANGUIANO MRN: [id number] date: 1960 Sex: F Assigned Patient Location: [facility] Current Patient Location: [facility] Accession/Order Number: [id number] Exam Date: 01/21/2025 09:30 Report Date: 01/21/2025 10:31 At the request of: FRANNY MCDERMOTT Procedure: XR knee HOLLY 4V CLINICAL DATA: Chronic bilateral knee pain. No reported injury. BILATERAL KNEES - 4 views each COMPARISON: 06/14/2024 AP, lateral, internal oblique and patellar views of both knees were obtained. No acute fracture, dislocation or bony destruction is identified. No patellar subluxation is identified on the patellar views. There is no disproportionate joint space narrowing. There is slight squaring off the articular margins. There is subchondral cystic change at the articular aspect of the right patella on the lateral view. This might be chondromalacia. There is no knee effusion or soft tissue swelling. XR/XR knee standing BI IMPRESSION: MINOR DEGENERATIVE CHANGE. NO ACUTE BONY FINDINGS. AP STANDING KNEES - one view COMPARISON: 06/14/2024 AP standing views of both knees were obtained. There is no acute fracture or dislocation. Once again, there is apparent lateral subluxation of the left patella. This is not however supported on the patellar view obtained today. There is no disproportionate joint space narrowing. Slight squaring off the articular margins is seen. No soft tissue swelling is noted. IMPRESSION: MINOR DEGENERATIVE CHANGE. APPARENT LATERAL SUBLUXATION OF THE PATELLA, ALSO SEEN ON THE PRIOR. Impression dictated by: Franny Mayberry M.D. 01/21/2025 10:31 AM Dictation Location: [place] [address] Electronically authenticated by: [id number] Y Date: 01/21/2025 10:31
--- OUTSIDE RECORDS SUMMARY | 2025-01-21 07:55 | XMS_ITS ---
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) Donaldo Mills Active [facility] 07/18/2024 Working Diagnosis Pseudophakia / Z96.1(ICD-10) Donaldo Mills Active [facility] 05/16/2024 Unknown Dysphagia, unspecified / R13.10(ICD-10) AsaSivakumar cheek Active [facility] PROCEDURES DATE CODE DESCRIPTION STATUS SOURCE 07/18/2024 09074(CPT-4) Ophthal DX Image Post Retina I And R Completed [facility] 07/18/2024 98638(CPT-4) OFFICE/OUTPATIEN T VISIT, EST Completed [facility] RESULTS L Observed: 05/16/2024 1:39 PM Status: F Source: [facility] ----- ------- Specimen: [id number] Received: 05/16/24 Status: LALY Dougherty Num: [id number] Spec Type: Surgical Subm Dr: Sivakumar Juárez MD Tissues: A Soft Tissue Mass - Biopsy (HIATAL HERNIA POLYP) B Gastric Biopsy (GASTRIC BX) C Esophagus Biopsy (ESOPHAGUS BX) Procedures: HE/8, Gross/Micro L5, Gross/Micro L4/2, H PYLORI/2 ----- ------- Age/ Patient Sex Location Account Attending Physician ----- ------- Анна Amaya V 63/F [id number] Sivakumar Juárez MD ----- ------- SPEC NUM: [id number] RECD: 05/16/24 STATUS: LALY LIAM NUM: [id number] KARAN: 05/16/[address]: Sivakumar Juárez MD ENTERED: 05/16/[address] [facility] [address]: SPEC TYPE: Surgical DEPT: S ENTERED BY: [id number] RECV BY: [id number] ORDERED: HE/8, Gross/Micro L5, Gross/Micro L4/2, H [...] out H. pylori, Part rule out Ruth's ----- ------- Specimen: [id number] Received: 05/16/24 Status: ANGELIQUEGolden Dougherty Num: [id number] Spec Type: Surgical Subm Dr: Sivakumar Juárez MD Tissues: A Soft Tissue Mass - Biopsy (HIATAL HERNIA POLYP) B Gastric Biopsy (GASTRIC BX) C Esophagus Biopsy (ESOPHAGUS BX) Procedures: HE/8, Gross/Micro L5, Gross/Micro L4/2, H PYLORI/2 ----- ------- Patient: Анна Amaya Kenna [id number] (Continued) ----- ------- Specimen: [id number] Received: 05/16/24 (Continued) Signed (signature on file) Allison Chi MD 05/20/24 1410 ----- ------- Specimen: [id number] Received: 05/16/24 Status: LALY Dougherty Num: [id number] Spec Type: Surgical Subm Dr: Sivakumar Juárez MD Tissues: A Soft Tissue Mass - Biopsy (HIATAL HERNIA POLYP) B Gastric Biopsy (GASTRIC BX) C Esophagus Biopsy (ESOPHAGUS BX) Procedures: HE/8, Gross/Micro L5, Gross/Micro L4/2, H PYLORI/2 ----- ------- Patient: Анна Amaya V [id number] (Continued) ----- ------- Specimen: [id number] Received: 05/16/24 (Continued) Gross Description [...] specimen entirely submitted in A2. (2, ns, S27-713 A)JG Part B is received in formalin labeled with the patients name, date of , and gastric BX are 2 burr-mac, focally erythematous, friable, 0.3 cm each in greatest dimension tissue bits. (1, ns, S20-110 B)JG Part See is received in formalin labeled with the patients name, date of , and esophagus BX are 2 pale mac, focally erythematous, feathery, 0.1 to 0.3 cm in greatest dimension tissue bits. The specimen is entirely submitted in a single cassette. (1, ns, S29-179 C) CPT Codes 07862s2, 32899 ----- ------- ----- ------- Specimen: [id number] Received: 05/16/24-140 Status: LALY Dougherty Num: [id number] Spec Type: Surgical Subm Dr: Sivakumar Juárez MD Tissues: A Soft Tissue Mass - Biopsy (HIATAL HERNIA POLYP) B Gastric Biopsy (GASTRIC BX) C Esophagus Biopsy (ESOPHAGUS BX) Procedures: HE/8, Gross/Micro L5, Gross/Micro L4/2, H PYLORI/2 ----- ------- Patient: Анна Amaya V [id number] (Continued) ----- ------- Signed (signature on file) Allison Chi MD 05/20/24 1410 ALLERGIES No Allergies Records Found ENCOUNTERS ADMIT/DISCHARGE ACCOUNT NUMBER ADMITTING ENCOUNTER CLASS LOCATION SOURCE 01/21/2025/01/22/20 [id number] Ambulatory Building:[facility] 11/12/2024/11/13/19 [id number] Ambulatory Building:[facility] 08/20/2024/08/21/19 [id number] Ambulatory Building:[facility] 07/18/2024 [id number] Ambulatory Building:[facility] 06/10/2024/06/10/19 [id number] [facility] 05/16/2024/05/16/19 [id number] Asaad, Im[facility] 04/02/2024/04/02/20 [id number] Ambulatory Building:[facility] PAYERS ENCOUNTER GUARANTOR PAYER SUBSCRIBER SOURCE 01/21/2025 АННА FOOTEB: [facility] [address], [place] [address]Qiu: (HP) Primary Insurance:[facility] MEDICARE ADVANTAGEPolicy Number: [id number] Date:2023-04-24 АННА AMAYA VDOB: [id number] [facility] [address], [place] [address] [facility] 11/12/2024 АННА AMAYADOB: [facility] [address], [place] [address]Prd: (HP) Primary Insurance:[facility] MEDICARE ADVANTAGEPolicy Number: [id number] Date:2023-04-24 АННА AMAYA VDOB: [id number] [facility] [address] [place] [address] [facility] 08/20/2024 АННА AMAYADOB: [facility] [address], [place] [address]Xii: (HP) Primary Insurance:[facility] MEDICARE ADVANTAGEPolicy Number: [id number] Date:2023-04-24 АННА AMAYA VDOB: [id number] [facility] [address] [place] [address] [facility] 07/18/2024 Анна AmayaDOB: [facility] RachaelUn [facility] [place] [address]Qcd: (HP) (WP) Primary Insurance:Medicaid [place] Number: [id number] Date:[id number] Name:MCPo Dockery [address] [place] [address]KS: Анна FooteB: [id number] [facility] RachaelUndenis [facility] [address]Ixk: (HP) (WP) [facility] 06/10/2024 АННА FOOTEB: [address] [address]Quv: (HP) Primary Insurance:[employer] MEDICARE ADVANTAGEPolicy Number: [id number] Date:2023-04-24 АННА AMAYA VDOB: [id number] [address] [address] [facility] 05/16/2024 Анна Jacobsenons[address] [address]Gvr: (HP) Primary Insurance:[facility] PFFSPolicy Number: [id number] Date:2024-04-23 Анна FooteB: [id number] [address]Nuc: (HP) [facility] 05/16/2024 Secondary Insurance:[facility] ActivePolicy Number: [id number] Date:[id number]% from 05/16/24 to 11/21/24[place] [address]TD: [phone] Анна FooteB: [id number] [address]Iry: (HP) [facility] 05/16/2024 Tertiary Insurance:Self PayPolicy Number: Effective Date:2024-05-14 NOT GIVENUNK [facility] 04/02/2024 АННА AMAYADOB: [id number] [facility] [address], [place] [address]Zcp: () Primary Insurance:[facility] MEDICARE ADVANTAGEPolicy Number: [id number] Date:2023-04-24 АННА AMAYA VDOB: [id number] [facility] [address], [place] [address] [facility] EPIC
--- NOTE | 2025-01-21 09:11 | XR_ITS ---
The [address] [address] Patient Name: YOUSUF ANGUIANO MRN: [id number] date: 1960 Sex: F Assigned Patient Location: [facility] Current Patient Location: [facility] Accession/Order Number: [id number] Exam Date: 01/21/2025 09:30 Report Date: 01/21/2025 10:31 At the request of: FRANNY MCDERMOTT Procedure: XR knee HOLLY 4V CLINICAL DATA: Chronic bilateral knee pain. No reported injury. BILATERAL KNEES - 4 views each COMPARISON: 06/14/2024 AP, lateral, internal oblique and patellar views of both knees were obtained. No acute fracture, dislocation or bony destruction is identified. No patellar subluxation is identified on the patellar views. There is no disproportionate joint space narrowing. There is slight squaring off the articular margins. There is subchondral cystic change at the articular aspect of the right patella on the lateral view. This might be chondromalacia. There is no knee effusion or soft tissue swelling. XR/XR knee HOLLY 4V IMPRESSION: MINOR DEGENERATIVE CHANGE. NO ACUTE BONY FINDINGS. AP STANDING KNEES - one view COMPARISON: 06/14/2024 AP standing views of both knees were obtained. There is no acute fracture or dislocation. Once again, there is apparent lateral subluxation of the left patella. This is not however supported on the patellar view obtained today. There is no disproportionate joint space narrowing. Slight squaring off the articular margins is seen. No soft tissue swelling is noted. IMPRESSION: MINOR DEGENERATIVE CHANGE. APPARENT LATERAL SUBLUXATION OF THE PATELLA, ALSO SEEN ON THE PRIOR. Impression dictated by: Franny Mayberry M.D. 01/21/2025 10:31 AM Dictation Location: [place] [address] Electronically authenticated by: [id number] Y Date: 01/21/2025 10:31
== END 2025-01-21 08:59 | disposition home or self-care (01) ==
LOC: RAD 09:03
PROVIDERS: PCP Family Medicine; Visit Provider Physician Assistant
DX: M25.561 Pain in right knee (principal); M25.562 Pain in left knee; G89.29 Other chronic pain
CPT/HCPCS: 73564; 73565

== ENCOUNTER 2025-02-26 16:07 | Emergency (ER) | payer MEDICARE, SELFPAY ==
--- OUTSIDE RECORDS SUMMARY | 2024-02-08 08:30 | XMS_ITS ---
Author Organization [facility] vices Address [address] [place], [place] [address] [id number] Care Team Providers Care Family Medicine Physician Assistant Name Role Phone Gabino Shanna Unavailable [phone] REASON FOR VISIT Recall (A)- 63 Social History Sex Assigned At : Social History Observation Description Sex Assigned At Female Encounters Encounter Location Date Provider Diagnosis [facility] [address] [place], [place] [id number] 02/08/2024 Shanna Lloyd Plan Of Treatment No Information Progress Notes * Анна ANGUIANODOB: [birth year] (64 yo F)Acc No.[id number]:02/08/2024 Patient:?Анна ANGUIANO :?Shanna Lloyd DDSDOB:1960???Age:63 Y ???Sex:FemaleDate:02/08/2024hone:[phone]:[address], [id number] Subjective: * Chief Complaints: * 1 . Recall (A)- 63. * Medical History: Objective: * Vitals: Assessment: Plan: * Treatment: * Billing Information: * Visit Code: * Procedure Codes: * Electronic signature of Shanna Lloyd DDS on 02/26/2025 at 04:15 PM EST Sign off status: Pending * Provider: Elaine Lloyd DDS Date: Generated for Printing/Faxing/eTransmitting on:?02/26/2025 04:15 PM EST
[2025-02-26 16:10] VITALS: BP 149/101; PULSE 97; TEMP 36.9; O2SAT 94; BMI 29.3
--- OUTSIDE RECORDS SUMMARY | 2025-02-26 16:16 | XMS_ITS | Encounter Summary ---
Author Organization [facility] Address [address] [address] Care Team Providers Care Auto Rebuilder Name Role Phone Erika Zee MD Primary Care Provider [phone] Karolyn Rangel FORENSIC LOCKSMITH Unavailable [phone] Dorita Dye FORENSIC LOCKSMITH Unavailable [phone] Naomie Johnson RN Unavailable Monday, Bina MANAGER OF IT Unavailable [phone] Rosa Edwards RN Unavailable [phone] FontenotHumera MANAGER OF IT Unavailable Encounter Details DateTypeDepartmentCare Team (Latest Contact Info)Mxdjiocvjrr93/22/2024Clinisync Result Encounter [facility] Department Unsolicited Dorita Dye FORENSIC LOCKSMITH Social History Tobacco UseTypesPacks/DayYears UsedDateSmoking Tobacco: NeverSmokeless Tobacco: NeverAlcohol UseStandard Drinks/WeekCommentsYes5 (1 standard drink = 0.6 oz pure alcohol)Caffeine intake: 1-2 cups per [id number] Health LiteracyAnswerDate RecordedHow often do you need to have someone help you when you read instructions, pamphlets, or other written material from your doctor or pharmacy? Vdyoyjjju97Humiliation, Afraid, Rape, and Kick questionnaireAnswerDate RecordedWithin the last year, have you been afraid of your partner or ex-partner?No09/24/2025Within the last year, have you been humiliated or emotionally abused in other ways by your partner or ex-partner?No01/15/2025 Within the last year, have you been kicked, hit, slapped, or otherwise physically hurt by your partner or ex-partner?No01/15/2025Within the last year, have you been raped or forced to have any kind of sexual activity by your part ner or ex-partner?01/15/2025Social Connection and Isolation PanelAnswerDate RecordedIn a typical week, how many times do you talk on the phone with family, friends, or neighbors?More than three times a week01/15/2025How often do you get together with friends or relatives?More than three times a week01/15/2025How often do you attend baptism or jainism services?More than 4 times per year 01/15/2025Do you belong to any clubs or organizations such as baptism groups, unions, fraternal or athletic groups, or school groups?Yes01/15/2025How often do you attend meetings of the clubs or organizations you belong to?More than 4 times per year01/15/2025re you , , , , never , or living with a partner?Kwwjaia2501/15/2025UDIT-CAnswerDate RecordedQ1: How often do you have a drink containing alcohol?Monthly or less01/15/2025Q2: How many drinks containing alcohol do you have on a typical day when you are drinking?1 or Q3: How often do you have six or more drinks on one occasion?Less than dyusddf1201/15/2025Overall Financial Resource Strain (CARDIA) AnswerDate RecordedHow hard is it for you to pay for the very basics like food, housing, medical care, and heating?Somewhat hard01/15/2025PHQ-2AnswerDate RecordedPatient Health Questionnaire-2 Hmmkt606Finjordan [facility] of Occupational Health - Occupational Stress QuestionnaireAnswerDate RecordedDo you feel stress - tense, restless, nervous, or anxious, or unable to sleep at night because yourmind is troubled all the time - these days?To some mmneuv2401/06/2024 Exercise Vital SignAnswerDate RecordedOn average, how many days per week do you engage in moderate to strenuous exercise (like a brisk walk)?2 days01/15/2025On average, how many minutes do you engage in exercise at this level?20 min 01/15/2025Hunger Vital SignAnswerDate RecordedWithin the past 12 months, you worried that your food would run out before you got the money to buymore.Never true01/15/2025Within the past 12 months, the food you bought just didn't last and you didn't have money to get more.Never true01/15/2025PRAPARE - TransportationAnswerDate RecordedIn the past 12 months, has lack of transportation kept you from medical appointments or from getting medications?No 01/15/2025In the past 12 months, has lack of transportation kept you from meetings, work, or from getting things needed for daily living?No01/15/2025 Housing Stability Vital SignAnswerDate RecordedIn the last 12 months, was there a time when you were not able to pay the mortgage or rent on time?No11/09/2022In the last 12 months, how many places have you lived?In the last 12 months, was there a time when you did not have a steady place to sleep or [facility] (including now)?No11/09/2022Housing Stability Vital SignAnswerDate RecordedIn the last 12 months, was there a time when you were not able to pay the mortgage or rent on time?No01/15/2025In the past 12 months, how many times have you moved where you were living?t any time in the past 12 months, were you homeless or living in a usp (including now)?No01/15/2025 CommentsUnknownSex and Gender InformationValueDate RecordedSex Assigned at BirthNot on fileLegal HvqHnvquz46/15/2023 8:00 PM EDTGender IdentityNot on fileSexual OrientationNot on filedocumented as of this encounter Functional Status * AUDIT-C ScoreAnswerDate of WjlswbeqzuTwyrcp696/24/2025 9:02 AM Joe Generic * Q1: How often do you have a drink containing alcohol?AnswerDate of Assessment AuthorMonthly or less01/15/2025 9:02 AM Joe Generic * Q2: How many drinks containing alcohol do you have on a typical day when you are drinking?AnswerDate of AssessmentAuthor1 or 9:02 AM NOA Boyce, Generic * Q3: How often do you have six or more drinks on one occasion?AnswerDate of AssessmentAuthorLess than rntendi0701/15/2025 9:02 AM Joe Generic * Over the past 2 weeks, how often have you been bothered by any of the following problems?QuestionAnswerDate of AssessmentAuthorLittle interest or pleasure in doing thingsNot at all01/21/2025 7:00 AM Emilia Montano LPN Feeling down, depressed, or hopelessNot at all01/21/2025 7:00 AM Emilia Montano LPNPatient Health Questionnaire-2 Ucyjn522 7:00 AM Emilia Montano LPN * QuestionAnswerDate of AssessmentAuthorTrouble falling or staying asleep, or sleeping too muchNot at all01/21/2025 7:00 AM Emilia Montano LPNFeeling tired or having little energyNot at all01/21/2025 7:00 AM Emilia Montano LPNPoor appetite or overeatingNot at all01/21/2025 7:00 AM Emilia Montano LPNFeeling bad about yourself - or that you are a failure or have let yourself or your family downNot at all01/21/2025 7:00 AM Emilia Montano LPNTrouismael concentrating on things, such as reading the newspaper or watching television Not at all01/21/2025 7:00 AM Emilia Montano LPNMoving or speaking so slowly that other people could have noticed? Or the opposite - being so fidgety or restless that you have been moving around a lot more than usual.Not at all 01/21/2025 7:00 AM Emilia Montano LPNThoughts that you would be better off or hurting yourself in some wayNot at all01/21/2025 7:00 AM Emilia Montano LPNPatient Health Questionnaire-9 Xhoxw638 7:00 AM Emilia Montano LPN documented as of this encounter Plan of Treatment Not on file documented as of this encounter Procedures Procedure NamePriorityDate/TimeAssociated DiagnosisCommentsMR LUMBAR SPINE WO CON11/13/2023 8:09 AM EDT documented in this encounter Results * MR LUMBAR SPINE WO CON (11/13/2023 8:09 AM EDT)Anatomical RegionLaterality ModalityOtherSpecimen (Source)Anatomical Location / LateralityCollection Method / VolumeCollection TimeReceived Time11/13/2023 8:09 AM EDT Narrative 11/13/2023 8:11 AM EDT [facility] ?[address] ? [place] [address] ? Magnetic Resonance Report ? Signed ? Patient: SILVIO,АННА V ?MR#: [id number] ?? : 1960 ?Acct:[id number] ?? Age/Sex: 63 / F ?ADM Date: 11/10/23 ?? Loc: MRI ? Attending Dr: Dorita Dye FORENSIC LOCKSMITH ? Ordering Physician: Dorita Dye FORENSIC LOCKSMITH ?? Date of Service: 11/10/23 ?? Procedure(s): MR lumbar spine wo con ?? Accession Number(s): [id number] ? cc: ERIKA ZEE ; Dorita Dye FORENSIC LOCKSMITH ? [facility] ? [address] ? [place] [address] ? Patient Name: ?? АННА AMAYA ? MRN: [id number] ? date: 1960 ?Sex: F ?? Assigned Patient Location: MRI ?? Current Patient Location: ? Accession/Order Number: [id number] ?? Exam Date: 11/10/2023 ??07:05 ?Report Date: 11/13/2023 ??08:09 ? At the request of: ?? DORITA DYE ? Procedure: ??MR lumbar spine wo con ? EXAMINATION: MR lumbar spine wo con ? HISTORY: inflammation of right SI joint M46.1 ? COMPARISON: No relevant comparison available. ? TECHNIQUE: A variety of imaging planes and parameters were utilized for ?? visualization of suspected pathology. ? FINDINGS: ?? For the purposes of numbering, sagittal T2 image # 8 extends from the T10 ?? vertebral body superiorly to the S4 level inferiorly. ? PARASPINAL AREA: Normal with no visible mass. ?? BONES: Normal alignment of the lumbar vertebral bodies with no acute fracture, ? dislocation or bone edema ?? CORD/CAUDA EQUINA: Normal caliber, contour, and signal intensity. ? DISC LEVELS: ?? 12-L1: No significant disc/facet abnormality, spinal stenosis, or foraminal ?? stenosis. ?? L1-L2: No significant disc/facet abnormality, spinal stenosis, or foraminal ?? stenosis. ?? L2-L3: Early degenerative disc disease is present without focal protrusion or ?? neural impingement. ?? L3-L4: No significant disc/facet abnormality, spinal stenosis, or foraminal ?? stenosis. ?? L4-L5: Early degenerative disc disease is present without focal protrusion or ?? neural impingement. ?? L5-S1: Early degenerative disc disease is present without focal protrusion or ?? neural impingement. ? MR/MR lumbar spine wo con ?? IMPRESSION: ? Mild discogenic changes with no no disc bulge or herniation, now significant ?? central or foraminal stenosis ? Electronically authenticated by: KINGSLEY ??VASILE ?? Date: 11/13/2023 ??08:09 ? Dictated By: ?Kingsley Burnette M.D. ? Signed By: ?11/13/23 0811 ? DD/ 0809 ? TD/TT: ? Eeler: Procedure Note Radiology, Radiologist, - 11/13/2023 [place] [address] Magnetic Resonance Report Signed Patient: АННА AMAYA R#: [id number] : 1Acct:[id number] Age/Sex: 63 / FADM Date: 11/10/23 Loc: MRI Attending Dr: Dorita Dye FORENSIC LOCKSMITH Ordering Physician: Dorita Dye NP Date of Service: 11/10/23 Procedure(s): MR lumbar spine wo con Accession Number(s): [id number] cc: ERIKA ZEE ; Dorita Dye NP [facility] [place] [id number] Patient Name: АННА AMAYA MRN: [id number] date: 1960 Sex: F Assigned Patient Location: MRI Current Patient Location: Accession/Order Number: [id number] Exam Date: 11/10/2023 07:05 Report Date: 11/13/2023 [...] Burnette M.D. Signed By:11/13/23810 DD/ 8 TD/TT: Eeler: Authorizing ProviderResult TypeResult StatusFelicia Ana Luisa Dye NPCLINISYNC IMAGINGFinal Result documented in this encounter Visit Diagnoses Not on filedocumented in this encounter Care Teams Team MemberRelationshipSpecialtyStart DateEnd Erika Zee MD [address] [place] [address] PCP - GeneralFamily Medicine11/15/22 Karolyn Rangel, FORENSIC LOCKSMITH [address] [place] [address] PCP - [place] Dorita Dye NP PCP - [place]12/23/2410 Naomie Johnson RN [address] [facility] [address] [place] [address] Registered NurseFamily Znqfbgru36/12/MondayBina LPN [address] [place] [address] Licensed Practical NurseFamily Dctnqqfb86/18/242 Rosa Edwards RN [address] [place] [address] Licensed Practical NurseFamily Medicine Humera Fontenot LPN [address] [place] [address] 07/12/24documented as of this encounter
--- OUTSIDE RECORDS SUMMARY | 2025-02-26 16:16 | XMS_ITS | Encounter Summary ---
Author Organization [facility] Address [address] [place] [address] Care Team Providers Care Logger All Round Name Role Phone Erika Gaviria MD Primary Care Provider [phone] Humera Fontenot BUSINESS APPLICATIONS ANALYST Unavailable Encounter Details DateTypeDepartmentCare Team (Latest Contact Info)Cgvctmrcxbq62/27/2025bstract [facility] [address] [place] [address] [place] [address] Erika Gaviria MD [address] [facility] [address] [place] [address] Social History Tobacco UseTypesPacks/DayYears UsedDateSmoking Tobacco: NeverSmokeless Tobacco: NeverAlcohol UseStandard Drinks/WeekCommentsYes5 (1 standard drink = 0.6 oz pure alcohol)Caffeine intake: 1-2 cups per winO2020 Health LiteracyAnswerDate RecordedHow often do you need to have someone help you when you read instructions, pamphlets, or other written material from your doctor or pharmacy? Rlneyoowc56/24/2025Humiliation, Afraid, Rape, and Kick questionnaireAnswerDate RecordedWithin the last year, have you been afraid of your partner or ex-partner?No01/15/2025Within the last year, have you been humiliated or emotionally abused in other ways by your partner or ex-partner?No01/15/2025 Within the last year, have you been kicked, hit, slapped, or otherwise physically hurt by your partner or ex-partner?No01/15/2025Within the last year, have you been raped or forced to have any kind of sexual activity by your part ner or ex-partner?No01/15/2025Social Connection and Isolation PanelAnswerDate RecordedIn a typical week, how many times do you talk on the phone with family, friends, or neighbors?More than three times a week01/15/2025How often do you get together with friends or relatives?More than three times a week01/15/2025How often do you attend christian or faith services?More than 4 times per year 01/15/2025Do you belong to any clubs or organizations such as christian groups, unions, fraHoffmeister Leuchten or athletic groups, or school groups?Yes01/15/2025How often do you attend meetings of the clubs or organizations you belong to?More than 4 times per year01/15/2025re you , , , , never , or living with a partner?Qzqusje9701/15/2025UDIT-CAnswerDate RecordedQ1: How often do you have a drink containing alcohol?Monthly or less01/15/2025Q2: How many drinks containing alcohol do you have on a typical day when you are drinking?1 or Q3: How often do you have six or more drinks on one occasion?Less than ivvsrcp6701/15/2025Overall Financial Resource Strain (CARDIA) AnswerDate RecordedHow hard is it for you to pay for the very basics like food, housing, medical care, and heating?Somewhat hard01/15/2025PHQ-2AnswerDate RecordedPatient Health Questionnaire-2 Qadok533[facility]insteward [facility] [place] [facility] Occup[facility] - Occupational Stress QuestionnaireAnswerDate RecordedDo you feel stress - tense, restless, nervous, or anxious, or unable to sleep at night because yourmind is troubled all the time - these days?To some lsuycw5401/06/2024 Exercise Vital SignAnswerDate RecordedOn average, how many [...] steady place to sleep or slept in [place] (including now)?No11/09/2022Housing Stability Vital SignAnswerDate RecordedIn the last 12 months, was there a time when you were not able to pay the mortgage or rent on time?No01/15/2025In the past 12 months, how many times have you moved where you were living?t any time in the past 12 months, were you homeless or living in a prison (including now)?No01/15/2025 CommentsUnknownSex and Gender InformationValueDate RecordedSex Assigned at BirthNot on fileLegal VjxLwitkm94/15/2023 8:00 PM EDTGender IdentityNot on fileSexual OrientationNot on filedocumented as of this encounter Plan of Treatment Not on file documented as of this encounter Visit Diagnoses Not on filedocumented in this encounter Additional Health Concerns AssessmentNoted TimePHQ-9 Depression Total Score: 7:00 AM EDT documented as of this encounter Care Teams Team MemberRelationshipSpecialtyStart DateEnd Date Erika Gaviria MD [address] [facility] 110 [place] [address] PCP - GeneralFamily Medicine11/15/22 Humera Fontenot LPN [address] [address] [place] [address] 07/12/24documented as of this encounter
--- OUTSIDE RECORDS SUMMARY | 2025-02-26 16:16 | XMS_ITS | Encounter Summary ---
Author Organization [facility] Address [address] [facility] [place] [address] Care Team Providers Care Superintendent Pipelines Name Role Phone Erika Zee MD Primary Care Provider Karolyn Rangel TRAVEL NURSE Unavailable Kate Slater TRAVEL NURSE Unavailable Naomie Johnson RN Unavailable [phone] Monday, Bina CHIEF GROWTH OFFICER Unavailable [phone] Rosa Edwards RN Unavailable [phone] FontenotHumera CHIEF GROWTH OFFICER Unavailable Encounter Details DateTypeDepartmentCare Team (Latest Contact Info)Inovofqfapx14/08/2024Clinisync Result Encounter [facility] Department Unsolicited Erika Zee MD [address] [facility] [address] [place] [address] Social History Tobacco UseTypesPacks/DayYears UsedDateSmoking Tobacco: NeverSmokeless Tobacco: NeverAlcohol UseStandard Drinks/WeekCommentsYes5 (1 standard drink = 0.6 oz pure alcohol)Caffeine intake: 1-2 cups per [id number] Health LiteracyAnswerDate RecordedHow often do you need to have someone help you when you read instructions, pamphlets, or other written material from your doctor or pharmacy? Isjdlfggh91/24/2025Humiliation, Afraid, Rape, and Kick questionnaireAnswerDate RecordedWithin the [...] times a week01/15/2025How often do you attend orthodox or baptism services?More than 4 times per year 01/15/2025Do you belong to any clubs or organizations such as orthodox groups, unions, fraternal or athletic groups, or school groups?Yes01/15/2025How often do you attend meetings of the clubs or organizations you belong to?More than 4 times per year01/15/2025re you , , , , never , or living with a partner?Fbmcdtj0701/15/2025UDIT-CAnswerDate RecordedQ1: How often do you have a drink containing alcohol?Monthly or less01/15/2025Q2: How many drinks containing alcohol do you have on a typical day when you are drinking?1 or Q3: How often do you have six or more drinks on one occasion?Less than kkozpyp8201/15/2025Overall Financial Resource Strain (CARDIA) AnswerDate RecordedHow hard is it for you to pay for the very basics like food, housing, medical care, and heating?Somewhat hard01/15/2025PHQ-2AnswerDate RecordedPatient Health Questionnaire-2 Sfobb207Finbrigham city community [facility] [place] [facility] Occupational Health - Occupational Stress QuestionnaireAnswerDate RecordedDo you feel stress - tense, restless, nervous, or anxious, or unable to sleep at night because yourmind is troubled all the time - these days?To some bcsttk0001/06/2024 Exercise Vital SignAnswerDate RecordedOn average, how many [...] steady place to sleep or slept in [facility] (including now)?No11/09/2022Housing Stability Vital SignAnswerDate RecordedIn the last 12 months, was there a time when you were not able to pay the mortgage or rent on time?No01/15/2025In the past 12 months, how many times have you moved where you were living?t any time in the past 12 months, were you homeless or living in a skilled nursing (including now)?No01/15/2025 CommentsUnknownSex and Gender InformationValueDate RecordedSex Assigned at BirthNot on fileLegal ZffRfasir81/15/2023 8:00 PM EDTGender IdentityNot on fileSexual OrientationNot on filedocumented as of this encounter Functional Status * AUDIT-C ScoreAnswerDate of KzcxxafhjrTjwbbb611/24/2025 9:02 AM Joe, Generic * Q1: How often do you have a drink containing alcohol?AnswerDate of Assessment AuthorMonthly or less01/15/2025 9:02 AM Joe, Generic * Q2: How many drinks containing alcohol do you have on a typical day when you are drinking?AnswerDate of AssessmentAuthor1 or 9:02 AM NOA Boyce, Generic * Q3: How often do you have six or more drinks on one occasion?AnswerDate of AssessmentAuthorLess than ycphgtn5201/15/2025 9:02 AM Joe, Generic * Over the past 2 weeks, how often have you been bothered by any of the following problems?QuestionAnswerDate of AssessmentAuthorLittle interest or pleasure in doing thingsNot at all01/21/2025 7:00 AM Emilia Montano LPN Feeling down, depressed, or hopelessNot at all01/21/2025 7:00 AM Emilia Montano LPNPatient Health Questionnaire-2 Cdojk664 7:00 AM Emilia Montano LPN * QuestionAnswerDate of AssessmentAuthorTrouble falling or staying asleep, or sleeping too muchNot at all01/21/2025 7:00 AM Emiila Montano LPNFeeling tired or having little energyNot [...] 7:00 AM Emilia Montano LPNPatient Health Questionnaire-9 Rdpmt813 7:00 AM Emilia Montano LPN documented as of this encounter Plan of Treatment Not on file documented as of this encounter Procedures Procedure NamePriorityDate/TimeAssociated DiagnosisCommentsMM TOMOSYNTHESIS SCREENING BI10/30/2023 7:21 AM EDT documented in this encounter Results * MM TOMOSYNTHESIS SCREENING BI (10/30/2023 7:21 AM EDT)Anatomical Region LateralityModalityOtherSpecimen (Source)Anatomical Location / Laterality Collection Method / VolumeCollection TimeReceived Time10/30/2023 7:21 AM EDT Narrative 10/30/2023 7:22 AM EDT [facility] ?[address] ? [place] [address] ? Mammography Report ? Signed ? Patient: SILVIO,АННА V ?MR#: [id number] ?? : 1960 ?Acct:[id number] ?? Age/Sex: 63 / F ?ADM Date: 10/27/23 ?? Loc: MAMMO ? Attending Dr: ERIKA ZEE ? Ordering Physician: ERIKA ZEE ? Results: ? Date of Service: 10/27/23 ?Follow Up: ? Procedure(s): MM tomosynthesis screening BI ?? Accession Number(s): [id number] ? cc: ERIKA ZEE ? Patient Name: ? АННА AMAYA ? MR#: [id number] ? : 1960 ? Exam Date: 10/27/2023 ?? Ordering Doctor: DR ERIKA ZEE M.D. ? RADIOLOGY REPORT ? PROCEDURE: ? MM TOMOSYNTHESIS SCREENING BI ? COMPARISON: ? MM TOMOSYNTHESIS SCREENING BI, 10/21/2022. ??MG MAMM SCREEN 3D ?? HOLLY CAD, 10/20/2021. ? INDICATIONS: ? Screening ? Calculator Name ? NCI Breast Cancer Risk Assessment Tool ?? 5 Year Breast Cancer Risk ? 0.90% ?? Lifetime Breast Cancer Risk ? 4.20% ?? Personal Breast Cancer ?No ?? Personal Ovarian Cancer ? No ?? Treatments ? None ?? Family Cancers ? None ? LOCATION: ? [facility] ? BREAST COMPOSITION: ? There are scattered areas of fibroglandular density. ? FINDINGS: ? DIAGNOSTIC CATEGORY 1--NEGATIVE. NO CHANGE FROM COMPARISON ASSESSMENT. ? Scattered benign-appearing nodules are present. ??Scattered benign-appearing ?? calcifications are present. ??Scattered benign-appearing lymph nodes are ?? present. ? RIGHT BREAST: ??No significant suspicious finding. ? LEFT BREAST: ??No significant suspicious finding. ? RECOMMENDATIONS: ? ROUTINE MAMMOGRAM AND CLINICAL EVALUATION IN 12 MONTHS. ? PLEASE NOTE: ??A NORMAL MAMMOGRAM DOES NOT EXCLUDE THE POSSIBILITY OF BREAST ?? CANCER. ??A CLINICALLY SUSPICIOUS PALPABLE LUMP SHOULD BE BIOPSIED. ? Dictated by: Julian Casey MD on 10/30/2023 at 07:20 ? Approved by: Julian Casey MD on 10/30/2023 at 07:21 ? Dictated By: ?Julian Casey M.D. ? Signed By: ?10/30/23721 ? DD/ 0 ? TD/TT: ? Acoustical Material Worker: Procedure Note Radiology, Radiologist, - 10/30/2023 [address] [place] [id number] Mammography Report Signed Patient: АННА AMAYA VMR#: [id number] : 1960cct:[id number] Age/Sex: 63 / FADM Date: 10/27/23 Loc: MAMMO Attending Dr: ERIKA ZEE Ordering Physician: ERIKA ZEEResults: Date of Service: 10/27/23Follow Up: Procedure(s): MM tomosynthesis screening BI Accession Number(s): [id number] cc: YAYOLANDYLAURENCE Patient Name: АННА AMAYA MR#: [id number] : 1960 Exam Date: 10/27/2023 Ordering Doctor: DR ERIKA ZEE M.D. RADIOLOGY REPORT PROCEDURE: MM TOMOSYNTHESIS SCREENING BI COMPARISON: MM TOMOSYNTHESIS SCREENING BI, 10/21/2022. MG MAMM OMSPZC2F HOLLY CAD, 10/20/2021. INDICATIONS: Screening Calculator Name NCI Breast Cancer Risk Assessment Tool 5 Year Breast Cancer Risk 0.90% Lifetime Breast Cancer Risk 4.20% Personal Breast Cancer No Personal Ovarian Cancer No Treatments None Family Cancers None LOCATION: [facility] BREAST COMPOSITION: There are scattered areas [...] Casey M.D. Signed By:10/30/23721 DD/ 0 TD/TT: Acoustical Material Worker: Authorizing ProviderResult TypeResult StatusErika Zee MDCLINISYNC IMAGING Final Result documented in this encounter Visit Diagnoses Not on filedocumented in this encounter Care Teams Team MemberRelationshipSpecialtyStart DateEnd Date Erika Zee MD [address] [facility] [place] [address] PCP - GeneralFamily Medicine11/15/22 Karolyn Rangel, TRAVEL NURSE [address] [place] [address] PCP - Selene MA Kate Slater NP PCP - [place]12/23/2410 Naomie Johnson RN [address] [facility] [address] [place] [address] Registered NurseFamily Yvvyujiu51/12/MondayiBna LPN [address] [place] [address] Licensed Practical NurseFamily Jphcsugu18/18/242 Rosa Edwards RN [address] [place] [address] Licensed Practical NurseFamily Medicine Humera Fontenot LPN [address] [place] [address] 07/12/24documented as of this encounter
--- OUTSIDE RECORDS SUMMARY | 2025-02-26 16:16 | XMS_ITS | Patient Health Record ---
Author Organization [facility] Address [address] [place] [place] [id number] Care Team Providers Care Wheel Alignment Mechanic Name Role Phone Shanna Lloyd Unavailable [phone] Xenia Rascon Unavailable [phone] Allergies No Known Allergies Reason For Referral No Information Medications Medication SIG (Take, Route, Frequency, Duration) Notes Start Date End Date Status Levothyroxine Sodium ActivehydroCHLOROthiazide 25 MGtake 1 tablet by mouth every morning Oral; Duration: 90ActivePantoprazole Sodium 40 MGTAKE 1 tablet Orally daily Oral; Duration: 30ActiveVentolin HFA 108 (90 Base) MCG/ACTinhale 2 puffs by mouth INTO THE LUNGS every 4 hours if needed Inhalation; Duration: 16ActiveMontelukast Sodium 10 MGtake 1 tablet by mouth every evening Oral; Duration: 30Active Rosuvastatin Calcium 10 MGOral; Duration: 30Not-Taking Social History Tobacco Use: Social History Observation Description Date Details (start date - stop date) Never Smoker NA - NA Sex Assigned At : Social History Observation Description Sex Assigned At Female Tobacco Use/Smoking Question Answer Notes Tobacco use: nonsmoker Problems Problem Type SNOMED Code ICD Code Onset Dates Problem Status W/U Status Risk Notes Problem Body mass index 25-29 - overweig ht ([id number]) BMI 28.0-28.9,adult (Z68.28) Activeconfirmed Vital Signs Heart Rate 92 /min 03/11/2024 Blood pressure fsccnenev90 mm Hg03/11/2024Weight-kg70.31 kg03/11/20240622Diimml64 in 03/11/2024lood pressure vfhxygyc514 mm Hg03/11/20249947Hmewuq859 lbs105/11/2023MI 28.35 kg/m203/11/2024 Encounters Encounter Location Date Provider Diagnosis [facility] [address] [place], [place] [id number] 03/11/2024 Xenia Rascon Encounter for scre ening for dental disorders Z13.84 and Encounter for dental examination and cleaning without abnormal findings Z01.20 Assessments Encounter Date Diagnosis (ICD Code) Assessment Notes Treatment Notes Treatment Clinical Notes Section Notes 03/11/2024 Encounter for screening for dent al disorders (ICD-10 - Z13.84) 03/11/2024Encounter for dental examination and cleaning without abnormal findings (ICD-10 - Z01.20) Plan Of Treatment No Information Insurance Providers Payer Name Payer Address Payer Phone Subscriber Number Group Number Insured Name Patient Relationship to Insured Coverage Start Date Coverage End Date [facility] [address] [address] [place] [phone] [id number] Анна Amaya Self - patient is the insured DMedicaid Medicare CrossoverPO [address] [place] [id number] Isai Amayalf - patient is the [id number] 2023
--- OUTSIDE RECORDS SUMMARY | 2025-02-26 16:16 | XMS_ITS | Clinical Summary ---
Author Organization [facility] Healthcare Address [address] [place] [address] Care Team Providers Care Miner Operator Name Role Phone Erika Zee MD Primary Care Provider [phone] Humera Fontenot LPN Unavailable Allergies Active AllergyReactionsCriticalityNoted RfykAsczlfklBceuxjruvh95/30/2025 Medications MedicationSigDispense QuantityRefillsLast FilledStart DateEnd DateStatus albuterol HFA (Ventolin HFA) 90 mcg/act inhaler Indications:Moderate persistent asthma without complication (HCC)Inhale 2 puffs every 4 (four) hours if needed for wheezing or shortness of breath 18 g 4Active busPIRone (Buspar) 5 MG tablet Indications:Stress reactionTake 1 tablet (5 mg) by mouth 2 (two) times a day as needed (Anxiety) 60 tablet 5Active potassium chloride CR (K-Tab) 20 MEQ ER tablet Indications:HypokalemiaTake 1 tablet (20 mEq) by mouth in the morning and 1 tablet (20 mEq) before bedtime. Do not crush, chew, or split..5Active rosuvastatin (Crestor) 10 MG tablet Indications:Elevated LDL cholesterol levelTake 1 tablet (10 mg) by mouth 1 (one) time each day at the same time 100 tablet 5Active hydroCHLOROthiazide (HYDRODiuril) 25 MG tablet Indications:Benign hypertensionTake 1 tablet (25 mg) by mouth Daily 100 tablet 5Active montelukast (Singulair) 10 MG tablet Indications:Seasonal allergiesTake 1 tablet (10 mg) by mouth at bedtime 100 tablet 5Active Multiple Vitamin (multivitamin) tablet Take 1 tablet by mouth DailyActive levothyroxine (Synthroid, Levoxyl) 50 MCG tablet Indications:Acquired hypothyroidismTake 1 tablet (50 mcg) by mouth in the morning. Take on an empty stomach. 90 tablet 5Active omeprazole (PriLOSEC) [address] capsule Take 40 mg by mouth in the morning and 40 mg before bedtime.5Active diclofenac sodium (Voltaren Arthritis Pain) 1 % gel Apply 2-4 g topically 3 (three) times a day as needed for painActive Active Problems ProblemNoted DateDiagnosed DateDegeneration of intervertebral disc of lumbar region with discogenic back pain06/10/2024hronic pain of both knees06/10/2024 CPAP (continuous positive airway pressure) boubvxevkr10/25/2023ifficulty yxwhquxd31/25/2023cquired vnzzyhsfxcgvmi38/24/2023nkylosis, right shoulder 11/14/2022enign wgmwaobccuor69/24/0576Yjsfbakoo22/24/2023Elevated LDL cholesterol level11/14/2022astroesophageal reflux fewralm0611/14/2022eneralized anxiety bodfcqdp89/24/2023History of total qhlowasuuvfo38/24/2023Hypokalemia 11/14/2022Inflammation of right sacroiliac joint11/14/2022Moderate persistent asthma without fuhccpjzwbgb08/24/2023OSA (obstructive sleep apnea)11/14/2022 Other chronic pain11/14/2022Overweight (BMI 25.0-29.9)11/14/2022Retinitis pyvlijsenq65/24/2023Seasonal eqpdwkqhh76/24/2023Stage 3a chronic kidney disease 11/14/2022Tension gibxcwjr18/24/2134Nkkasbncmkeybc48/24/2023 Encounters DateTypeDepartmentCare XqehAfkhwewxleh56/27/2025bstract [facility] [address] [facility] [address] [place] [address] Erika Zee MD 02/10/2025bstract [facility] [address] [facility] [address] [place] [address] Erika Zee MD 01/22/2025bstract [facility] [address] [place] [address] Erika Zee MD 01/21/2025 8:00 AM EDTOffice Visit [facility] [address] [place] [address] Franny Salazar PA Medicare annual wellness visit, subsequent (Primary Dx); ACP (advance care planning); Need for vaccination; Difficulty sleeping; EVIE (obstructive sleep apnea); Other chronic pain; Tension headache; CPAP (continuous positive airway pressure) dependence; Moderate persistent asthma without complication ([facility]); Benign hypertension ; Dysphagia, unspecified type; Gastroesophageal reflux disease without esophagitis; Ankylosis, right shoulder; Chronic pain of both knees; Degeneration of intervertebral disc of lumbar region with discogenic back pain; Inflammation of right sacroiliac joint; Acquired hypothyroidism ; Overweight (BMI 25.0-29.9); Thrombocytosis; Elevated LDL cholesterol level ; Generalized anxiety disorder ; History of total hysterectomy; Hypokalemia; Retinitis pigmentosa; Seasonal allergies; Stage 3a chronic kidney disease ([facility])01/21/2025Results Follow-Up [facility] [place] [address] [place] [phone] Franny Salazar PA XR knee 4+ views pblvzcyks29/30/2025bstract [facility] [address] [facility] [address] [place] [address] Erika Zee MD 01/21/2025linisync Result Encounter NOMS External Department Unsolicited Franny Salazar PA 5Clinisync Result Encounter NOMS External Department Unsolicited Franny Salazar PA 01/21/2025amboo flowsheet [facility] [address] [place] [address] Franny Salazar PA 01/21/20253885Thqjwu47/25/2025Results Follow-Up [facility] [place] [address] Franny Salazar, CHAN ALL CBC WITH AUTO DIFF, [facility] CMP (CMP) (FOR REMOTE [facility] USE), ALL LIPID PROFILE (FASTING), Additionalfollowed-up results: bstract [facility] [address] [place] [address] Erika Zee MD 01/16/2025bstract [facility] [address] [place] [address] Erika Zee MD 01/16/2025linisync Result Encounter NOMS External Department Unsolicited Franny Salazar PA 01/15/20251068Fszxqa63/17/2025Patient Outreach [facility] [address] [place] [address] Humera Fontenot LPN 12/17/2024Refill [facility] [place] [phone] Emilia Flores, COIL MACHINE OPERATOR Other chronic pain12/16/2024bstract [facility] [place] [address] [place] [phone] Erika Zee MD from Last 3 Months Immunizations ImmunizationAdministration DatesNext DueInfluenza, Madin Robertson Canine Kidney, subunit, trivalent, injectable, contains vavkvylilibx50/30/2025Influenza, Recombinant, injectable, preservative free03/01/2024Influenza, injectable, sirvvmthustu29/28/2020Influenza, injectable, quadrivalent, preservative free 12/31/2022,01/12/2022,02/18/2021,01/03/2019,01/25/2018,02/02/2016Influenza, seasonal, intradermal, preservative free01/03/2019,01/25/2018Pneumococcal Conjugate PCV 131Pneumococcal Polysaccharide UMSN524805/21/2019RSV, recombinant, protein subunit RSVpreF, adjuvant reconstitu, 120mcg/0.5mL, PF (Arexvy)06/07/20234852GADT-HjA-5, Antexcmknqi35/29/0406Fqsm06/17/2019Zoster, Swfckzvdcnx66/12/2022,12/01/2021 Family History Medical HistoryRelationNameCommentsKidney diseaseBrotherHypertensionMotherKidney diseaseMotherRelationNameStatusCommentsBrotherFatherDeceasedMotherDeceased Social History Tobacco UseTypesPacks/DayYears UsedDateSmoking Tobacco: NeverSmokeless Tobacco: Never Tobacco Cessation:Counseling Given: Not Answered Alcohol UseStandard Drinks/WeekCommentsYes5 (1 standard drink = 0.6 oz pure alcohol)Caffeine intake: 1-2 cups per rknQ7585 Health LiteracyAnswerDate RecordedHow often do you need to have someone help you when you read instructions, pamphlets, or other written material from your doctor or pharmacy? Umqetquwd71/24/2025Humiliation, Afraid, Rape, and Kick questionnaireAnswerDate RecordedWithin the [...] times a week01/15/2025How often do you attend alevism or mormon services?More than 4 times per year 01/15/2025Do you belong to any clubs or organizations such as alevism groups, unions, fraternal or athletic groups, or school groups?Yes01/15/2025How often do you attend meetings of the clubs or organizations you belong to?More than 4 times per year01/15/2025re you , , , , never , or living with a partner?Nmnfmdi3801/15/2025UDIT-CAnswerDate RecordedQ1: How often do you have a drink containing alcohol?Monthly or less01/15/2025Q2: How many drinks containing alcohol do you have on a typical day when you are drinking?1 or Q3: How often do you have six or more drinks on one occasion?Less than glljhrh9001/15/2025Overall Financial Resource Strain (CARDIA) AnswerDate RecordedHow hard is it for you to pay for the very basics like food, housing, medical care, and heating?Somewhat hard01/15/2025PHQ-2AnswerDate RecordedPatient Health Questionnaire-2 Ofhqe076[facility] [place] [facility] Occup[facility] - Occupational Stress QuestionnaireAnswerDate RecordedDo you feel stress - tense, restless, nervous, or anxious, or unable to sleep at night because yourmind is troubled all the time - these days?To some legjml8601/06/2024 Exercise Vital SignAnswerDate RecordedOn average, how many [...] steady place to sleep or slept in ashelter (including now)?No11/09/2022Housing Stability Vital SignAnswerDate RecordedIn the last 12 months, was there a time when you were not able to pay the mortgage or rent on time?No01/15/2025In the past 12 months, how many times have you moved where you were living?t any time in the past 12 months, were you homeless or living in a snf (including now)?01/15/2025 CommentsUnknownSex and Gender InformationValueDate RecordedSex Assigned at BirthNot on fileLegal GzeVmrgpv91/15/2023 8:00 PM EDTGender IdentityNot on fileSexual OrientationNot on file Last Filed Vital Signs Vital SignReadingTime TakenCommentsBlood Uinbsxmn447/8409 8:09 AM EDT Mdbcs185201/21/2025 8:09 AM EDTTemperature--Respiratory Cfqf604601/21/2025 8:09 AM EDTOxygen Heqpsbzaam81%01/21/2025 8:09 AM EDTInhaled Oxygen Concentration-- Xxlkfx37.7 kg (155 lb 12.8 oz)01/21/2025 8:09 AM YCHGrroga671.9 cm (5' 1 ) 01/21/2025 8:09 AM EDTBody Mass Index29.44001/21/2025 8:09 AM EDT Plan of Treatment Health MaintenanceDue DateLast DoneCommentsCT Caujtstddzfh32/14/1961FIT-DNA 1960FIT1960FOBT1960 8512Itfzizpcljgor44/14/1961OVID-19 Vaccine ( season), 07/24/2021, 02/19/2021, Additional history existsPneumococcal Vaccine: Pediatrics (0 to 5 Years) and At-Risk Patients (6 to 64 Years) (3 of 3 - PCV20 or PCV21), 02/02/20162963Flbseuigu95, 10/30/2023, 10/21/2022, Additional history existsMedicare Annual Wellness (AWV)/, 01/10/2024 Zdtptxcuhyj38, 12/20/2017Colorectal Cancer Kmietdyqn63/31/2029 Influenza AzctzlaIabsymavs10/30/2025, 03/01/2024, 12/31/2022, Additional history exists Procedures Procedure NamePriorityDate/TimeAssociated DiagnosisCommentsXR KNEE 4+ VIEWS KUHELSNOG24/30/2025 10:31 AM EDT XR KNEE STANDING BI01/21/2025 10:31 AM EDT ALL THYROXINE (T4) REACBjtsyfs70/25/2025 7:10 AM EDT TSH W/REFLEX B4Xzrsdtx68/25/2025 7:10 AM EDT ALL LIPID PROFILE (FASTING)Abvzmwr4001/16/2025 7:10 AM EDT [facility] CMP (CMP) (FOR REMOTE [facility] USE)Nvfhjph5301/16/2025 7:10 AM EDT ALL CBC WITH AUTO ZJKSGtioqkd55/25/2025 7:10 AM EDT MM TOMOSYNTHESIS SCREENING BI11/06/2024 11:14 AM EDT OHGHOQHWQCOQzscdqi94/31/2019 12:00 PM EDT from Last 3 Months or Most Recently Relevant to Health Maintenance Results * XR KNEE STANDING BI (01/21/2025 10:31 AM EDT)Anatomical RegionLaterality ModalityRadiographic ImagingSpecimen (Source)Anatomical Location / Laterality Collection Method / VolumeCollection TimeReceived Time01/21/2025 10:31 AM EDT Narrative 01/21/2025 10:34 AM EDT [facility] ?[address] ? [place] [address] ?XRay Report ? Signed ? Patient: SILVIO,АННА V ?MR#: [id number] ?? : 1960 ?Acct:[id number] ?? Age/Sex: 64 / F ?ADM Date: 01/21/25 ?? Loc: RAD ? Attending Dr: FRANNY SALAZAR ? Ordering Physician: FRANNY SALAZAR ?? Date of Service: 01/21/25 ?? Procedure(s): XR knee standing BI ?? Accession Number(s): [id number] ? cc: ERIKA ZEE ; FRANNY SALAZAR ? [facility] ? [address] [facility] ? [place] [address] ? Patient Name: ?? АННА AMAYA ? MRN: [facility]:[id number] ? date: 1960 ?Sex: F ?? Assigned Patient Location: RAD ?? Current Patient Location: RAD ?? Accession/Order Number: [id number] ?? Exam Date: 01/21/2025 ??09:30 ?Report Date: 01/21/2025 ??10:31 ? At the request of: ?? FRANNY SALAZAR ? Procedure: ??XR knee HOLLY 4V ? CLINICAL DATA: Chronic bilateral knee pain. ??No reported injury. ? BILATERAL KNEES - 4 views each ? COMPARISON: 06/14/2024 ? AP, lateral, internal oblique and patellar views of both knees were obtained. ? No acute fracture, dislocation or bony destruction is identified. ??No ?? patellar subluxation is identified on the patellar views. ??There is no ?? disproportionate joint space narrowing. ??There is slight squaring off the ?? articular margins. ??There is subchondral cystic change at the articular aspect ?? of the right patella on the lateral view. ??This might be chondromalacia. ? There is no knee effusion or soft tissue swelling. ? XR/XR knee standing BI ?? IMPRESSION: ? MINOR DEGENERATIVE CHANGE. ? NO ACUTE BONY FINDINGS. ? AP STANDING KNEES - one view ? COMPARISON: 06/14/2024 ? AP standing views of both knees were obtained. ??There is no acute fracture or ?? dislocation. ??Once again, there is apparent lateral subluxation of the left ?? patella. ??This is not however supported on the patellar view obtained today. ? There is no disproportionate joint space narrowing. ??Slight squaring off the ?? articular margins is seen. ??No soft tissue swelling is noted. ? IMPRESSION: ? MINOR DEGENERATIVE CHANGE. ? APPARENT LATERAL SUBLUXATION OF THE PATELLA, ALSO SEEN ON THE PRIOR. ? Impression dictated by: Franny Mayberry M.D. ??01/21/2025 10:31 AM ? Dictation Location: [place] [address] ? Electronically authenticated by: [id number] ??Y ?? Date: 01/21/2025 ??10:31 ? Dictated By: ?Franny Mayberry M.D. ? Signed By: ?01/21/25 1034 ? DD/ 1031 ? TD/TT: ? Waiter/Waitress Tourist Class: Procedure Note Radiology, Radiologist, MD - 01/21/[address] [address] XRay Report Signed Patient: АННА AMAYA R#: [id number] : 1960cct:[id number] Age/Sex: 64 / FADM Date: 01/21/25 Loc: RAD Attending Dr: FRANNY SALAZAR Ordering Physician: FRANNY SALAZAR Date of Service: 01/21/25 Procedure(s): XR knee standing BI Accession Number(s): [id number] cc: ERIKA ZEE ; FRANNY SALAZAR The [address] [address] Patient Name: АННА AMAYA MRN: [id number] date: 1960 Sex: F Assigned Patient Location: RAD Current Patient Location: RAD Accession/Order Number: [id number] Exam Date: 01/21/2025 09:30 Report Date: 01/21/2025 10:31 At the request of: FRANNY SALAZAR Procedure: XR knee HOLLY 4V CLINICAL DATA: Chronic bilateral knee pain. No reported injury. BILATERAL KNEES - 4 views each COMPARISON: 06/14/2024 AP, lateral, internal oblique and patellar views of both knees wereobtained. No acute fracture, dislocation or bony destruction is identified. No patellar subluxation is identified on the patellar views. There is no disproportionate joint space narrowing. There is slight squaring off the articular margins. There is subchondral cystic change at the articularaspect of the right patella on the lateral view. This might be chondromalacia. There is no knee effusion or soft tissue swelling. XR/XR knee standing BI IMPRESSION: MINOR DEGENERATIVE CHANGE. NO ACUTE BONY FINDINGS. AP STANDING KNEES - one view COMPARISON: 06/14/2024 AP standing views of both knees were obtained. There is no acute fractureor dislocation. Once again, there is apparent lateral subluxation of theleft patella. This is not however supported on the patellar view obtainedtoday. There is no disproportionate joint space narrowing. Slight squaring offthe articular margins is seen. No soft tissue swelling is noted. IMPRESSION: MINOR DEGENERATIVE CHANGE. APPARENT LATERAL SUBLUXATION OF THE PATELLA, ALSO SEEN ON THE PRIOR. Impression dictated by: Franny Mayberry M.D. 01/21/2025 10:31 AM Dictation Location: [place] [address] Electronically authenticated by: [id number] Y Date: 0:31 Dictated By: Franny Mayberry M.D. Signed By:01/21/25 1034 DD/ 1031 TD/TT: Waiter/Waitress Tourist Class: Authorizing ProviderResult TypeResult StatusFranny Salazar PAIMG XR PROCEDURES Final Result * XR knee 4+ views bilateral (01/21/2025 10:31 AM EDT)Anatomical Region LateralityModalityLower Extremities, KneeBilateralRadiographic ImagingSpecimen (Source)Anatomical Location / LateralityCollection Method / VolumeCollection TimeReceived Time01/21/2025 10:31 AM EDT Narrative 01/21/2025 10:34 AM EDT [facility] ?[address] ? [place] [address] ?XRay Report ? Signed ? Patient: SILVIO,АННА V ?MR#: [id number] ?? : 1960 ?Acct:[id number] ?? Age/Sex: 64 / F ?ADM Date: 09/30/25 ?? Loc: RAD ? Attending Dr: FRANNY SALAZAR ? Ordering Physician: FRANNY SALAZAR ?? Date of Service: 01/21/25 ?? Procedure(s): XR knee HOLLY 4V ?? Accession Number(s): [id number] ? cc: ERIKA ZEE ; FRANNY SALAZAR ? [facility] ? [address] ? [place] [address] ? Patient Name: ?? АННА AMAYA ? MRN: [facility]:[id number] ? date: 1960 ?Sex: F ?? Assigned Patient Location: RAD ?? Current Patient Location: RAD ?? Accession/Order Number: [id number] ?? Exam Date: 01/21/2025 ??09:30 ?Report Date: 01/21/2025 ??10:31 ? At the request of: ?? FRANNY SALAZAR ? Procedure: ??XR knee HOLLY 4V ? CLINICAL DATA: Chronic bilateral knee pain. ??No reported injury. ? BILATERAL KNEES - 4 views each ? COMPARISON: 06/14/2024 ? AP, lateral, internal oblique and patellar views of both knees were obtained. ? No acute fracture, dislocation or bony destruction is identified. ??No ?? patellar subluxation is identified on the patellar views. ??There is no ?? disproportionate joint space narrowing. ??There is slight squaring off the ?? articular margins. ??There is subchondral cystic change at the articular aspect ?? of the right patella on the lateral view. ??This might be chondromalacia. ? There is no knee effusion or soft tissue swelling. ? XR/XR knee HOLLY 4V ?? IMPRESSION: ? MINOR DEGENERATIVE CHANGE. ? NO ACUTE BONY FINDINGS. ? AP STANDING KNEES - one view ? COMPARISON: 06/14/2024 ? AP standing views of both knees were obtained. ??There is no acute fracture or ?? dislocation. ??Once again, there is apparent lateral subluxation of the left ?? patella. ??This is not however supported on the patellar view obtained today. ? There is no disproportionate joint space narrowing. ??Slight squaring off the ?? articular margins is seen. ??No soft tissue swelling is noted. ? IMPRESSION: ? MINOR DEGENERATIVE CHANGE. ? APPARENT LATERAL SUBLUXATION OF THE PATELLA, ALSO SEEN ON THE PRIOR. ? Impression dictated by: Franny Mayberry M.D. ??01/21/2025 10:31 AM ? Dictation Location: [place] [address] ? Electronically authenticated by: [id number] ??Y ?? Date: 01/21/2025 ??10:31 ? Dictated By: ?Franny Mayberry M.D. ? Signed By: ?01/21/254 ? DD/ 1031 ? TD/TT: ? Waiter/Waitress Tourist Class: Procedure Note Radiology, Radiologist, - 01/21/2025 [place] [address] XRay Report Signed Patient: АННА AMAYA R#: [id number] : 1960cct:[id number] Age/Sex: 64 / FADM Date: 01/21/25 Loc: RAD Attending Dr: FRANNY SALAZAR Ordering Physician: FRANNY SALAZAR Date of Service: 01/21/25 Procedure(s): XR knee HOLLY 4V Accession Number(s): [id number] cc: ERIKA ZEE ; FRANNY SALAZAR The [place] [id number] Patient Name: АННА AMAYA MRN: [id number] date: 1960 Sex: F Assigned Patient [facility]: [facility] Current Patient Location: RAD Accession/Order Number: [id number] Exam Date: 01/21/2025 09:30 Report Date: 01/21/2025 10:31 At the request of: FRANNY SALAZAR Procedure: XR knee HOLLY 4V CLINICAL DATA: Chronic bilateral knee pain. No reported injury. BILATERAL KNEES - 4 views each COMPARISON: 06/14/2024 AP, lateral, internal oblique and patellar views of both knees wereobtained. No acute fracture, dislocation or bony destruction is identified. No patellar subluxation is identified on the patellar views. There is no disproportionate joint space narrowing. There is slight squaring off the articular margins. There is subchondral cystic change at the articularaspect of the right patella on the lateral view. This might be chondromalacia. There is no knee effusion or soft tissue swelling. XR/XR knee HOLLY 4V IMPRESSION: MINOR DEGENERATIVE CHANGE. NO ACUTE BONY FINDINGS. AP STANDING KNEES - one view COMPARISON: 06/14/2024 AP standing views of both knees were obtained. There is no acute fractureor dislocation. Once again, there is apparent lateral subluxation of theleft patella. This is not however supported on the patellar view obtainedtoday. There is no disproportionate joint space narrowing. Slight squaring offthe articular margins is seen. No soft tissue swelling is noted. IMPRESSION: MINOR DEGENERATIVE CHANGE. APPARENT LATERAL SUBLUXATION OF THE PATELLA, ALSO SEEN ON THE PRIOR. Impression dictated by: Franny Mayberry M.D. 01/21/2025 10:31 AM Dictation Location: [place] [address] Electronically authenticated by: [id number] Y Date: 0:31 Dictated By: Franny Mayberry M.D. Signed By:01/21/25 1034 DD/ 1031 TD/TT: Waiter/Waitress Tourist Class: Authorizing ProviderResult TypeResult StatusFranny Salazar PAIMG XR PROCEDURES Final Result * (ABNORMAL) TSH W/REFLEX T4 (01/16/2025 7:10 AM EDT)ComponentValueRef RangeTest MethodAnalysis TimePerformed AtPathologist SignatureTSH4.100(H)0.358 - 3.740 uIU/mLTBHSpecimen (Source)Anatomical Location / LateralityCollection Method / VolumeCollection TimeReceived Time01/16/2025 7:10 AM EDT01/16/2025 7:11 AM EDT Narrative [facility] - 01/16/2025 8:01 AM EDT Authorizing ProviderResult TypeResult StatusFranny Salazar PALAB BLOOD ORDERABLESFinal ResultPerforming OrganizationAddressCity/State/ZIP CodePhone Number [facility] TB * (ABNORMAL) [facility] CMP (CMP) (FOR REMOTE [facility] USE) (01/16/2025 7:10 AM EDT) ComponentValueRef RangeTest MethodAnalysis TimePerformed AtPathologist MbrgeqrnjPQYRMQ059453 - 145 mmol/LTBHPOTASSIUM3.53.5 - 5.1 mmol/LTBHCHLORIDE 49589 - 107 mmol/LTBHCARBON ONOPDZT53.421.0 - 32.0 mmol/LTBHANION GAP10.1TBH DDTOUDT292(H)74 - 106 mg/dLTBHBLOOD UREA KATHANXG39.07.0 - 18.0 mg/dLTBH CREATININE1.020.55 - 1.02 mg/dLTBHTBH EGFR-AF RUSSIAN>60>=60 mL/min/1.73m 2 TBHTBH EGFR-NON AF VLRGNMEI04(L)>=60 mL/min/1.73m 2TBHBUN CREATININE RATIO13.7 TBHCALCIUM9.38.5 - 10.1 mg/dLTBHBILIRUBIN TOTAL0.30.2 - 1.0 mg/dLTBHASPARTATE AMINO YXPHHDDAHTJ7985 - 37 U/LTBHALANINE AXZVLCMVLIYIYWKF6041 - 59 U/LTBH ALKALINE KCGYYFKRFQK6069 - 116 U/LTBHTOTAL PROTEIN8.3(H)6.4 - 8.2 g/dLTBH ALBUMIN LEVEL3.53.4 - 5.0 g/dLTBHGLOBULIN4.8g/dLTBHALBUMIN GLOBULIN RATIO0.7 TBHSpecimen (Source)Anatomical Location / LateralityCollection Method / Volume Collection TimeReceived Time01/16/2025 7:10 AM EDT01/16/2025 7:11 AM EDT Narrative [facility] - 01/16/2025 8:01 AM EDT Authorizing ProviderResult TypeResult StatusFranny Thomas Hemmer PACLINISYNCFinal ResultPerforming OrganizationAddressCity/State/ZIP CodePhone Number [facility] * ALL THYROXINE (T4) FREE (01/16/2025 7:10 AM EDT)ComponentValueRef RangeTest MethodAnalysis TimePerformed AtPathologist SignatureFREE T41.320.76 - 1.46 ng/dLTBHSpecimen (Source)Anatomical Location / LateralityCollection Method / VolumeCollection TimeReceived Time01/16/2025 7:10 AM EDT01/16/2025 7:11 AM EDT Narrative [facility] - 01/16/2025 8:26 AM EDT Authorizing ProviderResult TypeResult StatusFranny Thomas Hemmer PACLINISYNCFinal ResultPerforming OrganizationAddressCity/State/ZIP CodePhone Number [facility] TB * (ABNORMAL) ALL LIPID PROFILE (FASTING) (01/16/2025 7:10 AM EDT)ComponentValue Ref RangeTest MethodAnalysis TimePerformed AtPathologist Signature ISDGMYPYBIGDN21<=150 mg/jKJUZMSQVUJNCDZS930<=200 mg/dLTBHHDL AHUIVBFJIHB22(H) 40 - 60 mg/dLTBHComment: > or =60 mg/dl - LOW CARDIOVASCULAR RISK <40 mg/dl - HIGH CARDIOVASCULAR RISK LDL CHOLESTEROL XBRLIWCXUV81.0mg/dLTBHComment: <100 mg/dl OPTIMAL 100-129 mg/dl NEAR OR ABOVE OPTIMAL 130-159 mg/dl BORDERLINE HIGH 160-189 mg/dl HIGH >190 mg/dl VERY HIGH VLDL YDSZBZYEUDN53.2mg/dLTBHCHOL HDL RATIO2.4TBHComment: 3.3 - 4.4 ?? LOW RISK 4.4 - 7.1 ?? AVERAGE RISK 7.1 - 11.0 ??MODERATE RISK >11.0 HIGH RISK Specimen (Source)Anatomical Location / LateralityCollection Method / Volume Collection TimeReceived Time01/16/2025 7:10 AM EDT01/16/2025 7:11 AM EDT Narrative [facility] - 01/16/2025 8:01 AM EDT Authorizing ProviderResult TypeResult BlaiseFranny Thomas Hemmer PACLINISYNCFinal ResultPerforming OrganizationAddressCity/State/ZIP CodePhone Number [facility] * (ABNORMAL) ALL CBC WITH AUTO DIFF (01/16/2025 7:10 AM EDT)ComponentValueRef RangeTest MethodAnalysis TimePerformed AtPathologist SignatureTBH WBC7.04.0 - 11.0 10 3/uLTBHTBH RBC4.264.20 - 5.40 10 6/uLTBHTBH HGB12.712.0 - 16.0 g/dLTBH TBH HCT38.536.0 - 48.0 %TBHTBH MCV90.481.0 - 99.0 fLTBHTBH MCH29.826.7 - 34.0 pgTBHTBH MCHC33.029.9 - 35.2 g/dLTBHTBH RDW14.311.0 - 15.0 %TBHTBH [id number] - 450 10 3/uLTBHTBH MPV8.8(L)9.5 - 13.5 fLTBHNEUTROPHILS PERCENT AUTO56.743.0 - 75.0 %TBHLYMPHOCYTES PERCENT AUTO33.220.5 - 60.0 %TBHMONOCYTES PERCENT AUTO7.3 1.7 - 12.0 %TBHTBH EO %2.30.9 - 7.0 %TBHBASOPHILS PERCENT AUTO0.40.2 - 2.0 % TBHIMMATURE GRANULOCYTES PCT AUTO0.10.0 - 0.5 %TBHNEUTROPHILS ABSOLUTE AUTO4.0 1.4 - 6.5 10 3/uLTBHLYMPHOCYTES ABSOLUTE AUTO2.31.2 - 3.8 10 3/uLTBHMONOCYTES ABSOLUTE AUTO0.50.3 - 0.8 10 3/uLTBHTBH EO #0.20.0 - 0.7 10 3/uLTBHBASOPHILS ABSOLUTE AUTO0.00.0 - 0.1 10 3/uLTBHIMMATURE GRANULOCYTES ABS AUTO0.010.00 - 0.03 10 3/uLTBHSpecimen (Source)Anatomical Location / LateralityCollection Method / VolumeCollection TimeReceived Time01/16/2025 7:10 AM EDT01/16/2025 7:11 AM EDT Narrative [facility] - 01/16/2025 7:25 AM EDT Authorizing ProviderResult TypeResult StatusFranny Thomas Hemmer PACLINISYNCFinal ResultPerforming OrganizationAddressCity/State/ZIP CodePhone Number [facility] * MM TOMOSYNTHESIS SCREENING BI (11/06/2024 11:14 AM EDT)Anatomical Region LateralityModalityOtherSpecimen (Source)Anatomical Location / Laterality Collection Method / VolumeCollection TimeReceived Time11/06/2024 11:14 AM EDT Narrative 11/06/2024 11:15 AM EDT [facility] ?[address] ? [place] [address] ? Mammography Report ? Signed ? Patient: SILVIO,АННА V ?MR#: [id number] ?? : 1960 ?Acct:[id number] ?? Age/Sex: 64 / F ?ADM Date: 07/16/25 ?? Loc: MAMMO ? Attending Dr: ERIKA ZEE ? Ordering Physician: ERIKA ZEE ? Results: ? Date of Service: 11/06/24 ?Follow Up: ? Procedure(s): MM tomosynthesis screening BI ?? Accession Number(s): [id number] ? cc: ERIKA ZEE ? Patient Name: ? АННА SILVIO ? MR#: [id number] ? : 1960 ? Exam Date: 11/06/2024 ?? Ordering Doctor: DR ERIKA ZEE M.D. ? RADIOLOGY REPORT ? PROCEDURE: ? MM TOMOSYNTHESIS SCREENING BI ? COMPARISON: ? MM TOMOSYNTHESIS SCREENING BI, 10/27/2023. ??MM TOMOSYNTHESIS ?? SCREENING BI, 10/21/2022. ??MG MAMM SCREEN 3D HOLLY CAD, 10/20/2021. ??MAMMO HOLLY ?? SCREEN, 06/25/2009. ? INDICATIONS: ? Screening ? Calculator Name ? NCI Breast Cancer Risk Assessment Tool ?? 5 Year Breast Cancer Risk ? 0.90% ?? Lifetime Breast Cancer Risk ? 4.00% ?? Personal Breast Cancer ?No ?? Personal Ovarian Cancer ? No ?? Treatments ? None ?? Family Cancers ? None ? LOCATION: ? [facility] ? BREAST COMPOSITION: ? The breasts are almost entirely fatty. ? FINDINGS: ? RIGHT BREAST: ??No significant suspicious finding. ? LEFT BREAST: ??No significant suspicious finding. ? DIAGNOSTIC CATEGORY 1--NEGATIVE. ? RECOMMENDATIONS: ? ROUTINE MAMMOGRAM AND CLINICAL EVALUATION IN 12 MONTHS. ? PLEASE NOTE: ??A NORMAL MAMMOGRAM DOES NOT EXCLUDE THE POSSIBILITY OF BREAST ?? CANCER. ??A CLINICALLY SUSPICIOUS PALPABLE LUMP SHOULD BE BIOPSIED. ? Dictated by: Jose Myers MD on 11/06/2024 at 10:49 ? Approved by: Jose Myers MD on 11/06/2024 at 11:13 ? Dictated By: ?Jose Myers M.D. ? Signed By: ?16/ 1115 ? DD/ 1114 ? TD/TT: ? Waiter/Waitress Tourist Class: Procedure Note Radiology, Radiologist, MD - 11/06/2024 [place] [address] Mammography Report Signed Patient: АННА AMAYA VMR#: [id number] : 1960cct:[id number] Age/Sex: 64 / FADM Date: 11/06/24 Loc: MAMMO Attending Dr: ERIKA ZEE Ordering Physician: Adrien ZEEults: Date of Service: 11/06/24Follow Up: Procedure(s): MM tomosynthesis screening BI Accession Number(s): [id number] cc: ERIKA ZEE Patient Name: АННА AMAYA MR#: [id number] : 1960 Exam Date: 11/06/2024 Ordering Doctor: [...] Family Cancers None LOCATION: [facility] BREAST COMPOSITION: The breasts are almost [...] M.D. Signed By:11/06/24 1115 DD/ 1114 TD/TT: Waiter/Waitress Tourist Class: Authorizing ProviderResult TypeResult StatusErika Zee MDCLINISYNC IMAGING Final Result * Colonoscopy (11/21/2018 12:00 PM EDT)Anatomical RegionLateralityModality EndoscopySpecimen (Source)Anatomical Location / LateralityCollection Method / VolumeCollection TimeReceived Time11/21/2018 12:00 PM EDT Narrative 11/21/2018 12:00 PM EDT PERFORMED AT [facility] LOCATION:[id number] Normal Procedure Note CONVERSION, GENERIC - 09/07/2022 PERFORMED AT [facility] LOCATION:[id number] Normal Authorizing ProviderResult TypeResult StatusErika Zee MDENDOSCOPY PROCEDURE ORDERABLESFinal Result from Last 3 Months or Most Recently Relevant to Health Maintenance Insurance [address] [place] [address] Care Teams Team MemberRelationshipSpecialtyStart DateEnd Date Erika Zee MD [address] [facility] [address] [place] [address] PCP - GeneralFamily Medicine11/15/22 Humera Fontenot LPN [address] [address] 07/12/24
--- NOTE | 2025-02-26 16:21 | CT_ITS ---
The [address] [address] Patient Name: YOUSUF ANGUIANO MRN: [id number] date: 1960 Sex: F Assigned Patient Location: ER Current Patient Location: ER Accession/Order Number: [id number] Exam Date: 02/26/2025 16:40 Report Date: 02/26/2025 17:08 At the request of: EDITH CARD Procedure: CT abdomen pelvis wo con CT Abdomen and Pelvis withoutcontrast TECHNIQUE: Axial imaging with 2-D reconstruction. The CT exam was performed using one or more the following dose reduction techniques: Automated exposure control, adjustment of the MA and/or Kv according to patient size, or use of the iterative reconstruction technique. COMPARISON: 10/24/2018 History: Right flank pain. Right lower quadrant pain. 4 days duration. No urinary frequency. LIMITATIONS: None LOWER THORAX Unremarkable LIVER: Unremarkable GALLBLADDER: Cholecystectomy clips identified. BILE DUCTS: No dilatation SPLEEN: Unremarkable PANCREAS: Unremarkable ADRENAL GLANDS: Unremarkable KIDNEYS:Unremarkable AORTA: No abdominal aortic aneurysm identified. RETROPERITONEUM: No significant retroperitoneal abnormalities identified. MESENTERY:Unremarkable STOMACH:Unremarkable SMALL BOWEL: The small bowel loops are nondistended. APPENDIX: The appendix is normal. COLON: Left diverticulosis. URINARY BLADDER: Focus of air in urinary bladder likely related to catheterization. REPRODUCTIVE SYSTEM: Reproductive structures are unremarkable. PNEUMOPERITONEUM: None PERITONEAL FLUID:None BONY STRUCTURES: Unremarkable ABDOMINAL WALL: Unremarkable The right perianal fatty stranding. Similar finding compared to prior examination 10/24/2018. CT/CT abdomen pelvis wo con IMPRESSION: No CT findings of acute appendicitis. No obstructive uropathy or ureteral stone. Colonic diverticulosis. Similar fatty stranding in the right perianal region. Impression dictated by: Bronson Almaraz M.D. 02/26/2025 5:08 PM Dictation Location: [facility]ITAL[facility] Electronically authenticated by: [id number] Y Date: 02/26/2025 17:08
--- NOTE | 2025-02-26 16:21 | ED.GENADUL1 ---
HPI HPI - General Adult General Chief complaint: Back Pain/Injury Stated complaint: Back Pain Time Seen by Provider: 02/26/25 16:13 Source: patient Mode of arrival: walk-in Limitations: no limitations History of Present Illness HPI narrative: 64 year old female presents to the ED for right flank, abd pain. Onset was 02/22/25. The pain starts in the back and wraps around to the RLQ. Denies fever, chills, injury, N/V/D, dysuria, hematuria. She has hx cholecystectomy. Related Data Home Medications ?Medication ?Instructions ?Recorded ?Confirmed albuterol sulfate 90 mcg/actuation 2 inh inhalation Q4H PRN shortness 08/12/23 08/12/23 aerosol inhaler of breath or wheezing hydrochlorothiazide 25 mg tablet 25 mg PO DAILY 08/12/23 08/12/23 levothyroxine 25 mcg tablet 25 mcg PO DAILY 08/12/23 08/12/23 montelukast 10 mg tablet 10 mg PO DAILY 08/12/23 08/12/23 pantoprazole 40 mg tablet,delayed 40 mg PO DAILY 08/12/23 08/12/23 release rosuvastatin 10 mg tablet 10 mg PO DAILY 08/12/23 08/12/23 Previous Rx's ?Medication ?Instructions ?Recorded acetaminophen 300 mg-codeine 30 mg 1 tab PO Q6H PRN pain 5 days #20 08/03/24 tablet tabs ibuprofen 800 mg tablet 800 mg PO Q8H PRN pain #20 tabs 08/03/24 methocarbamol 500 mg tablet 500 mg PO Q8H PRN pain #20 tabs 08/03/24 Allergies Allergy/AdvReac Type Severity Reaction Status Date / Time No Known Drug Allergies Allergy Verified 08/03/24 12:18 Opioid HPI Opioid Management Most Recent Opioid Data: Last Pain Scale 8 Today, 17:56 Last MAR Pain Assessment Today, 17:56 Review of Systems ROS Constitutional Denies: fever or chills Cardiovascular Denies: chest pain Respiratory Denies: shortness of breath Gastrointestinal Reports: abdominal pain; Denies: nausea, vomiting or diarrhea Genitourinary Denies: painful urination, urinary frequency, urinary urgency or blood in urine Musculoskeletal Reports: back pain; Denies: neck pain or extremity pain Integumentary/Breast Denies: rash Neurological Denies: headache, numbness in extremities or weakness in extremities PFS PFSH Social History Little interest or pleasure in doing things: not at all Feeling down, depressed, or hopeless: not at all Exam Constitutional Vital Signs, click to edit/add: Last Vital Signs Temp 98.4 F 02/26/25 16:10 Pulse 99 H 02/26/25 18:05 Resp 14 02/26/25 18:05 BP 111/90 02/26/25 18:05 Pulse Ox 97 02/26/25 18:05 O2 Del Method Room Air 02/26/25 18:05 Common normals: no apparent distress and oriented x3 General appearance: cooperative HENMT Common normals: moist oral mucous membranes Eye Common normals: conjunctivae normal and no scleral icterus Neck & C-Spine Common normals: supple Chest Chest: symmetrical chest wall rise Respiratory Common normals: normal respiratory effort Effort & inspection: able to speak in complete sentences and symmetric chest movement Cardio Common normals: regular rate and regular rhythm GI Common normals: Normal to inspection, nondistended, normoactive bowel sounds present and soft to palpation Palpation: tender Details: RLQ Bladder/kidney exam: CVA tenderness on the right Neuro Common normals: oriented x3 and moves all extremities Sensorium/orientation: awake and alert Speech: speech normal Course Vital Signs Vital signs: Vital Signs Temperature 98.4 F 02/26/25 16:10 Pulse Rate 97 H 02/26/25 16:10 Respiratory Rate 18 02/26/25 16:10 Blood Pressure 149/101 H 02/26/25 16:10 Pulse Oximetry 94 L 02/26/25 16:10 Oxygen Delivery Method Room Air 02/26/25 16:10 Temperature 98.4 F 02/26/25 16:10 Pulse Rate 99 H 02/26/25 18:05 Respiratory Rate 14 02/26/25 18:05 Blood Pressure 111/90 02/26/25 18:05 Pulse Oximetry 97 02/26/25 18:05 Oxygen Delivery Method Room Air 02/26/25 18:05 Medical Decision Making MDM Narrative Medical decision making narrative: Urinalysis was unremarkable. CBC, CMP, and lipase were also completed and were unremarkable. CT scan of the abdomen/pelvis showed no acute findings. Findings were discussed with the patient. She was medicated for her discomfort here with Bentyl, Zofran, and morphine. She declined medication for home. Return precautions were discussed. Follow up with pcp for a recheck, further evaluation and treatment. Medical Records Medical records reviewed: Yes I reviewed the patient's medical records Lab Data Lab results reviewed: Yes I reviewed the patient's lab results Labs: Lab Results 02/26/25 02/26/25 Range/Units 16:30 16:32 WBC 9.7 (4.0-11.0) 10^3/uL RBC 4.25 (4.20-5.40) 10^6/uL Hgb 12.9 (12.0-16.0) g/dL Hct 38.9 (36.0-48.0) % MCV 91.5 (81.0-99.0) fL MCH 30.4 (26.7-34.0) pg MCHC 33.2 (29.9-35.2) g/dL RDW 14.3 (11.0-15.0) % Plt Count 377 (150-450) 10^3/uL MPV 8.8 L (9.5-13.5) fL Neut % (Auto) 56.4 (43.0-75.0) % Lymph % (Auto) 33.9 (20.5-60.0) % Whitley % (Auto) 7.0 (1.7-12.0) % Eos % (Auto) 2.0 (0.9-7.0) % Baso % (Auto) 0.5 (0.2-2.0) % Neut # (Auto) 5.5 (1.4-6.5) 10^3/uL Lymph # (Auto) 3.3 (1.2-3.8) 10^3/uL Whitley # (Auto) 0.7 (0.3-0.8) 10^3/uL Eos # (Auto) 0.2 (0.0-0.7) 10^3/uL Baso # (Auto) 0.1 (0.0-0.1) 10^3/uL Abs Immat Gran (auto) 0.02 (0.00-0.03) 10^3/uL Imm/Tot Granulo (auto) 0.2 (0.0-0.5) % Sodium 139 (136-145) mmol/L Potassium 3.0 L (3.5-5.1) mmol/L Chloride 100 (98-107) mmol/L Carbon Dioxide 29.4 (21.0-32.0) mmol/L Anion Gap 12.6 BUN 14.0 (7.0-18.0) mg/dL Creatinine 1.08 H (0.55-1.02) mg/dL Est GFR ( Amer) >60 (>=60 mL/min/1.73m^2) Est GFR (Non-Af Amer) 51 L (>=60 mL/min/1.73m^2) BUN/Creatinine Ratio 13.0 Glucose 83 (74-106) mg/dL Calcium 9.2 (8.5-10.1) mg/dL Total Bilirubin 0.2 (0.2-1.0) mg/dL AST 23 (15-37) U/L ALT 34 (14-59) U/L Alkaline Phosphatase 97 (46-116) U/L Total Protein 8.1 (6.4-8.2) g/dL Albumin 3.7 (3.4-5.0) g/dL Globulin 4.4 g/dL Albumin/Globulin Ratio 0.8 Lipase 49.0 (16.0-77.0) U/L Urine Color Lt. yellow (YELLOW) Urine Clarity Clear (CLEAR) Urine pH 6.5 (5.0-9.0) Ur Specific Smith <=1.005 A (1.005-1.025) Urine Protein Negative (NEG/TRACE) mg/dL Urine Glucose (UA) Negative (NEGATIVE) mg/dL Urine Ketones Negative (NEGATIVE) mg/dL Urine Occult Blood Trace-i (NEGATIVE) Urine Nitrite Negative (NEGATIVE) Urine Bilirubin Negative (NEGATIVE) Urine Urobilinogen 0.2 (0.2-1.0) EU/dL Ur Leukocyte Esterase Negative (NEGATIVE) Urine RBC 0-2 (0-2) #/HPF Urine WBC 0-2 A (NONE SEEN) #/HPF Ur Squamous Epith Cells Rare (NONE/RARE) #/LPF Urine Crystals None seen (None Seen) #/HPF Urine Bacteria Trace A (NONE SEEN) #/HPF Urine Casts None seen (NONE SEEN) #/LPF Urine Mucus None seen (NONE SEEN) Imaging Data CT scan - abdomen: Attestation: I have reviewed the pertinent imaging results. Radiologist's impression: ITS Impressions Abdomen/Pelvis CT 02/26/25 16:21 IMPRESSION: No CT findings of acute appendicitis. No obstructive uropathy or ureteral stone. Colonic diverticulosis. Similar fatty stranding in the right perianal region. Impression dictated by: Bronson Almaraz M.D. 02/26/2025 5:08 PM Dictation Location: [place] [address] Electronically authenticated by: [id number] Y Date: 02/26/2025 17:08 Discharge Plan Discharge Chief Complaint: Back Pain/Injury Clinical Impression: Abdominal pain, Back pain Patient Disposition: Home, Self-Care Time of Disposition Decision: 17:39 Condition: Good Mode of Transportation: Private Vehicle Prescriptions / Home Meds: No Action acetaminophen-codeine 300-30 mg tablet 1 tab PO Q6H PRN (Reason: pain) 5 Days Qty: 20 0RF methocarbamol 500 mg tablet 500 mg PO Q8H PRN (Reason: pain) Qty: 20 0RF ibuprofen 800 mg tablet 800 mg PO Q8H PRN (Reason: pain) Qty: 20 0RF levothyroxine 25 mcg tablet 25 mcg PO DAILY hydrochlorothiazide 25 mg tablet 25 mg PO DAILY rosuvastatin 10 mg tablet 10 mg PO DAILY montelukast 10 mg tablet 10 mg PO DAILY pantoprazole 40 mg tablet,delayed release (DR/EC) 40 mg PO DAILY albuterol sulfate 90 mcg/actuation HFA aerosol inhaler 2 inh INHALATION Q4H PRN (Reason: shortness of breath or wheezing) Print Language: Sami Instructions: Abdominal Pain (ED), Back Pain (ED) Additional Instructions: Return to the ED for worsening symptoms. Referrals: NELLY ZEE [Primary Care Provider, Family Practice] - 1 week Discharge Date/Time: 02/26/25 18:07
--- OUTSIDE RECORDS SUMMARY | 2025-02-26 16:22 | XMS_ITS | CCD ---
Author Organization [facility] Care Team Providers Care Anatomy Teacher Name Role Phone YAYO, DR VILLEGAS Primary [...] Unavailable Nelly Zee MD Primary Care Provider Juan Carlos SALON STYLIST, Karolyn Thomas Unavailable Bryon LEÓN, Dorita Orosco Unavailable Nelly Zee MD Primary Care Provider [phone] Sivakumar Juárez MD Attending Provider [phone] Monday Bina PULIDO Unavailable Jerry LUNA, Rosa Unavailable Loi Camara MD, Donaldo Unavailable Unavailabl e Humera Fontenot LPN Unavailable Unavailable Asaad, Sivakumar Attending Unavailable Franck Imad Admitting Unavailable YayoNelly barton Primary Care Unavailable Po PULIDO, Humera Unavailable Nelly Zee MD Primary Care Provider Jhonatan Trinidad APRN Attending Provider FRANNY MCDERMOTT Attending Unavailable FRANNY MCDERMOTT Attending Unavailable FRANNY MCDERMOTT Attending Unavailable FRANNY MCDERMOTT Attending Unavailable FRANNY MCDERMOTT Attending Unavailable Al Jax, Donaldo Attending Unavailable Al Jax, Donaldo Referring Unavailable Donaldo Mills Attending Unavailable Loi Camara, Donaldo Referring Unavailable Juan Carlos LEÓN, Karolyn Thomas Unavailable [phone] Bryon LEÓN Dorita C Unavailable [phone] Naomie Johnson RN Unavailable [phone] Monday PARAMEDIC, Bina Unavailable Rosa Edwards RN Unavailable Allergies Allergy ClassificationReported Allergen(s)Allergy TypeDate of OnsetReaction(s) Facility (7 sources)DULoxetineDrug [id number] Work Phone: Medications Current Medications MedicationDrug Class(es)DatesSig (Normalized)Sig (Original)[id number] 200 actuat albuterol 0.09 mg/actuat metered dose inhaler (20 sources)beta2-Adrenergic AgonistStart: 46-64-2349uitr 2 puff(s) by inhalation every four hours for wheezingalbuterol HFA (Ventolin HFA) 90 mcg/act inhaler Indications: Moderate persistent asthma without complication (HCC) Inhale 2 puffs every 4 (four) hours if needed for wheezing or shortness of breath 18g 5 02/08/2024 ActiveStart: 37-65-0167gsqj 2 puff(s) by inhalation every four hours for wheezingalbuterol HFA (Ventolin HFA) 90 mcg/act inhaler Indications: Moderate persistent asthma without complication (CMS/HCC) Inhale 2 puffs every 4 (four) hours if needed for wheezing or shortness of breath 18 g 5 10/30/2023 ActiveStart: 82-73-8198uevh 2.5 mg by inhalation every four hours as neededAlbuterol Sulfate 1.25 mg/3 mL Solution For Nebulization Active 2.5 MG INHALATION Q4H as needed forAllergic Reaction June 06, 2019 1:00am Complies with drug therapybusPIRone hydrochloride 5 mg oral tablet (19 sources)Start: 02-99-2598ngil 1 tablet by mouth twice daily as needed for anxietybusPIRone (Buspar) 5 MG tablet Indications: Stress reaction Take 1 tablet (5 mg) by mouth 2 (two) times a day as needed (Anxiety) 60 tablet 2 06/10/2024 Activechlorhexidine gluconate 1.2 mg/ml mouthwash (20 sources)Start: 01-03-2024 End: 55-63-0386oufxjvouarkgu (Peridex) 0.12 % solution Use 15 mL in the mouth or throat if needed for wound care 01/03/2024 11/12/2024 Discontinued (Other) cyclobenzaprine hydrochloride 10 mg oral tablet (16 sources)Muscle Relaxant End: 88-83-7802xyxs 1 tablet by mouth three times daily as needed for muscle spasmscyclobenzaprine (Flexeril) 10 MG tablet Take 10 mg by mouth 3 (three) times a day as needed for muscle spasms 01/21/2025 Discontinued (Therapy completed)diclofenac sodium 0.01 mg/mg topical gel (4 sources)Nonsteroidal Anti-inflammatory Drugdiclofenac sodium (Voltaren Arthritis Pain) 1 % gel Apply 2-4 g topically 3 (three) times a day as needed for pain ActivediphenhydrAMINE hydrochloride 25 mg oral tablet (3 sources)Histamine-1 Receptor AntagonistStart: 20-22-7019siom 1 tablet by mouth every eight hours as neededDiphenhydramine Hcl (Benadryl Allergy) 25 mg Tablet Active 25 MG PO Q8H as needed for Allergy Symptoms June 06, 2019 1:00am Complies with drug therapyDULoxetine 30 mg delayed release oral capsule (4 sources)Serotonin and Norepinephrine Reuptake InhibitorStart: 12-17-2024 End: 45-14-6226qwuv 1 capsule by mouth once dailyDULoxetine (Cymbalta) [address] capsule Indications: Other chronic pain Take 1 capsule (30 mg) by mouth Daily Do not crush or chew. 30 capsule 2 12/17/2024 01/21/2025 Discontinued (Side effects)Start: 96-21-5674kecv 1 capsule by mouth once dailyDULoxetine (Cymbalta) [address] capsule Indications: Other chronic pain Take 1 capsule (30 mg) by mouth Daily Do not crush or chew. 30 capsule 2 11/13/2024 ActivehydroCHLOROthiazide 25 mg oral tablet (20 sources)Thiazide DiureticStart: 82-76-0672zrsr 1 tablet by mouth once daily Hydrochlorothiazide 25 mg tablet Active 25 MG PO Daily June 06, 2019 1:00am Complies with drug therapylevothyroxine sodium 0.05 mg oral tablet (20 sources)l-ThyroxineStart: 90-86-5385mfeg 1 tablet by mouth in the morning levothyroxine (Synthroid, Levoxyl) 50 MCG tablet Indications: Acquired hypothyroidism Take 1 tablet(50 mcg) by mouth in the morning. Take on an empty stomach. 90 tablet 01/16/2025 ActiveStart: 70-71-6330qzwj 1 tablet by mouth once dailyLevothyroxine 25 mcg tablet Active 25 MCG PO Daily May 06, 2024 1:00am Complies with drug therapyStart: 64-24-8607wynu 1 tablet by mouth in the morninglevothyroxine (Synthroid, Levoxyl) 25 MCG tablet Indications: Acquired hypothyroidism (CMS/HCC) Take 1 tablet (25 mcg) by mouth in the morning. Take on an empty stomach.. 90 tablet 1 10/30/2023 Activetake 1 capsule by mouth once dailylevothyroxine 25 mcg capsule take 1 capsule by oral route every day 25 MCG - Activemontelukast 10 mg oral tablet (20 sources)Leukotriene Receptor AntagonistStart: 19-96-5788dkor 1 tablet by mouth once dailyMontelukast 10 mg tablet Active 10 MG PO Daily June 06, 2019 1:00am Complies with drug therapyMultiple Vitamin (multivitamin) tablet (10 sources)take 1 tablet by mouth once dailyMultiple Vitamin (multivitamin) tablet Take 1 tablet by mouth Daily Activeomeprazole 40 mg delayed release oral capsule (6 sources)Proton Pump InhibitorStart: 95-34-1758gbee 1 capsule by mouth in the morningomeprazole (PriLOSEC) [address] capsule Take 40 mg by mouth in the morning and 40 mg before bedtime.12/31/2024 Activepotassium chloride 20 meq extended release oral tablet (20 sources)Start: 81-43-5333rjxg 1 tablet by mouth in the morningpotassium chloride CR (K-Tab) 20 MEQ ER tablet Indications: Hypokalemia Take 1 tablet (20 mEq) by mouth in the morning and 1 tablet (20 mEq) before bedtime. Do not crush, chew, or split.. 06/14/2024 ActiveStart: 01-16-2024 End: 24-35-2047cbau 1 tablet by mouth once dailypotassium chloride CR (K-Tab) 20 MEQ ER tablet Indications: Hypokalemia Take 1 tablet (20 mEq) by mouth Daily Do not crush, chew, or split. 90 tablet 3 05/29/2024 ActiveStart: 08-13-2023 End: 01-00-2061tgyb 1 tablet by mouth once dailypotassium chloride CR (K-Tab) 20 MEQ ER tablet take 1 tablet by mouth once daily for 5 days 08/13/2023 01/10/2024 Discontinued (Other)predniSONE 10 mg oral tablet (2 sources)Start: 08-20-2024 End: 32-95-2920qqef 1 tablet by mouth three times daily, then take 1 tablet by mouth twice daily, then take 1 tablet by mouth once dailypredniSONE (Deltasone) 10 MG tablet Indications: Lumbar strain, initial encounter Take 1 tablet (10mg) by mouth 3 (three) times a day for 3 days, THEN 1 tablet (10 mg) 2 (two) times a day for 3 days, THEN 1 tablet (10 mg) Daily for 3 days. 18 tablet 08/20/2024 08/29/2024 Activerosuvastatin calcium 10 mg oral tablet (20 sources)HMG-CoA Reductase InhibitorStart: 71-81-5029ewpf 1 tablet by mouth once dailyRosuvastatin (Crestor) 10 mg tablet Active 10 MG PO Daily May 16, 2024 1:00am Complies with drug therapyvitamin a 2.4 mg oral capsule (1 source)Vitamin Avitamin A 2,400 mcg capsule - Active Completed/Discontinued Medications MedicationDrug Class(es)DatesSig (Normalized)Sig (Original)ibuprofen 800 mg oral tablet (3 sources)Nonsteroidal Anti-inflammatory DrugStart: 01-03-2024 End: 96-66-8562smeg 1 tablet by mouth every eight hours as neededibuprofen 800 MG tablet Take 800 mg by mouth every 8 (eight) hours if needed 01/03/2024 01/10/2024 Discontinued (Other)methylPREDNISolone 4 mg oral tablet (3 sources)CorticosteroidStart: 01-03-2024 End: 77-63-2010ylil 1 tablet by mouth oncemethylPREDNISolone (Medrol Dospak) 4 MG tablets Take 4 mg by mouth 1 (one) time See administration instructions 01/03/2024 01/10/2024 Discontinued (Other)pantoprazole 40 mg delayed release oral tablet (20 sources)Proton Pump InhibitorStart: 06-06-2019 End: 72-11-2895spgz 1 tablet by mouth once dailyPantoprazole 40 mg tablet,delayed release (DR/EC) Discontinued 40 MG PO Daily 90 90 3 June 14, 2024 10:08am December 13, 2024 1:22pm Problems Active Problems Problem ClassificationProblemDateDocumented DateEpisodic/ChronicAbdominal hernia (3 sources)Hiatal hernia; Translations: [Diaphragmatic hernia without obstruction or gangrene]10-89-1181UicjyambDdwmwldvgxxesh/social admission (4 sources)Patient encounter status; Translations: [Other specified counseling] 44-87-9914YmqeyncyIsebuwb disorders (20 sources)Generalized anxiety disorder; Translations: [Generalized anxiety disorder]Onset: 763938-83-1255KqiayweHvgzem (20 sources)Uncomplicated moderate persistent asthma; Translations: [Moderate persistent asthma, uncomplicated]Onset: 182830-49-3492LifliqlAonepohhw and vision defects (9 sources)Generalized contraction of visual field, bilateral; Translations: [Generalized visual field contraction or constriction]EpisodicCataract (13 sources)Presence of intraocular lens; Translations: [Age-related nuclear cataract, bilateral]Onset: 57-57-8102HfvuvncQtdlphd kidney disease (20 sources)Chronic kidney disease stage 3A ; Translations: [Stage 3a chronic kidney disease (HCC)]Onset: 11-14-2022 Resolved: 768251-31-4988CazgrikLzxguuqao of lipid metabolism (20 sources)Raised low density lipoprotein cholesterol; Translations: [Pure hypercholesterolemia, unspecified]Onset: 370765-59-7030LpdkqlgLvgsqeskqh disorders (20 sources)Gastroesophageal reflux disease; Translations: [Gastro-esophageal reflux disease without esophagitis]Onset: 535308-20-4401OuiauvfEyfdqpozt hypertension (20 sources)Benign hypertension; Translations: [Essential (primary) hypertension]Onset: 843595-22-2928QgalfqgSgakgptl; including migraine (20 sources)Tension-type headache; Translations: [Tension-type headache, unspecified, not intractable]Onset: 431810-65-0130YyxlzsfVlabejypwgfst and screening for infectious disease (2 sources)Vaccination needed; Translations: [Encounter for immunization] 12-18-6202MetddcejOqhij eye disorders (7 sources)Other vitreous opacities, bilateralChronicOther eye disorders (2 sources)Vitreous degeneration, bilateralChronicOther eye disorders (2 sources)Vitreous degenerationChronicOther gastrointestinal disorders (2 sources)H/O: gastrointestinal disease; Translations: [Personal history of other diseases of the digestive system]17-80-3203SeuxjpzzGouwe lower respiratory disease (2 sources)Chronic cough; Translations: [Chronic cough]31-86-4042DzsepfvrFyuik nervous system disorders (20 sources)Chronic pain; Translations: [Other chronic pain]Onset: 11-14-2022 48-50-2939LiqtnanJjzop nervous system disorders (2 sources)Paresthesia of left lower limb; Translations: [Paresthesia of skin] 38-21-6576IdupzazjMbboi non-traumatic joint disorders (20 sources)Joint ankylosis of the shoulder region; Translations: [Ankylosis, right shoulder]Onset: 746268-36-1892BilmzscSacog non-traumatic joint disorders (2 sources)Hip pain; Translations: [Pain in left hip]78-89-9644SlmxtgdzEpkpx screening for suspected conditions (not mental disorders or infectious disease) (4 sources)Encounter for screening mammogram for malignant neoplasm of breast; Translations: [ENC SCR MAMMO MALIG NEOPLASM BREAST]Onset: 68-98-6904Iwypqizy Other upper respiratory disease (20 sources)Seasonal allergy; Translations: [Other seasonal allergic rhinitis] Onset: 250937-68-5401QpchidsMtndx upper respiratory disease (2 sources)Hoarse; Translations: [Dysphonia]84-51-1074YigxilbnResddilujj and visceral atherosclerosis (2 sources)Atherosclerosis of aorta; Translations: [Atherosclerosis of aorta] 35-63-5428MrfoetbIkvlbldh codes; unclassified (4 sources)Obstructive sleep apnea (adult) (pediatric); Translations: [OBSTRUCTIVE SLEEP APNEA]Onset: 69-18-0543VvsavpfHabdgjir codes; unclassified (20 sources)Obstructive sleep apnea syndrome; Translations: [Obstructive sleep apnea (adult) (pediatric)]Onset: 084149-42-8434PfhwragQfegutyi codes; unclassified (20 sources)Dependence on continuous positive airway pressure ventilation; Translations: [Dependence on other enabling machines and devices]Onset: 202445-72-6935DimedruSeelwyt detachments; defects; vascular occlusion; and retinopathy (20 sources)Retinitis pigmentosa; 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] Onset: 02-05-2018 Resolved: 068712-01-4819GmtkfiuMgsuqnpyga arthritis and related disease (2 sources)Rheumatoid arthritis; Translations: [Rheumatoid arthritis, unspecified]27-88-2891NwmwrccGdfljwehrwm; intervertebral disc disorders; other back problems (20 sources)Inflammation of sacroiliac joint; Translations: [Sacroiliitis, not elsewhere classified]Onset: 104773-63-6207GuahwkmOekzdzs and strains (2 sources)Low back strain; Translations: [Strain of muscle, fascia and tendon of lower back, initial encounter]49-61-9880OcanuionUvlflxk (2 sources)Near syncope; Translations: [Syncope and collapse]84-82-4170Craizgzp Thyroid disorders (20 sources)Acquired hypothyroidism; Translations: [Hypothyroidism, unspecified] Onset: 266730-41-2647JyivhmzEkppwjzcphjo (3 sources)CONTACT W/AND (SUSP) EXPOS COVID-19; Translations: [CONTACT W/AND (SUSP) EXPOS COVID-19]Onset: 01-27-2021 Past or Other Problems Problem ClassificationProblemDateDocumented DateEpisodic/ChronicFluid and electrolyte disorders (20 sources)Hypokalemia; Translations: [Hypokalemia]Onset: EpisodicMood disorders (20 sources)Mood disordersOnset: 01-06-2024 Resolved: 047528-56-0947Qkwgrdafv of unspecified nature or uncertain behavior (20 sources)Thrombocytosis; Translations: [Thrombocytosis]Onset: 11-14-2022 68-28-3645MacltnppSttth gastrointestinal disorders (20 sources)Dysphagia; Translations: [Dysphagia, unspecified]Onset: 11-14-2022 82-30-1802BrshwmvcSijne gastrointestinal disorders (1 source)Dysphagia, unspecified; Translations: [Dysphagia, unspecified]Onset: 30-43-8577YlctdzblHghbz non-traumatic joint disorders (20 sources)Pain in right knee; Translations: [Pain in joint, lower leg]Onset: 438572-79-2782RgqumiqqEhjlh nutritional; endocrine; and metabolic disorders (20 sources)Body mass index 25-29 - overweight; Translations: [Overweight]Onset: 433809-96-1284MbdsjfzcEzchunpt codes; unclassified (20 sources)Difficulty sleeping ; Translations: [Sleep disorder, unspecified] Onset: 106257-75-6172UiqruwcvIgysyzye codes; unclassified (2 sources)Other problems related to lifestyle; Translations: [Other problems related to lifestyle]48-95-8068CvubeoynCozwacvxxnje (1 source)CONTACT W/AND (SUSP) EXPOS COVID-19; Translations: [CONTACT W/AND (SUSP) EXPOS COVID-19]Onset: 90-78-2101Kiaktiearflh (1 source)Pigmrntary retinal dystrophy (chief complaint)Onset: 02-15-2023 Unclassified (1 source)pigmentary retinal dystrophy (chief complaint) decreased vision (chief complaint)Onset: 55-43-1269Wjikhbtltgay (1 source)pigmentary retinal dystrophy (chief complaint) decrease in vision (chief complaint)Onset: 60-60-7788Ikpcntfkbcjf (1 source)pigmentary retinal dystrophy (chief complaint) flashes (chief complaint)Onset: 75-55-8483Nkbcqiagbwuh (1 source)pigmentary retinal dystrophy (chief complaint) stable vision (chief complaint)Onset: 32-65-8796Gqrlqxwdwzoo (1 source)Pigmentary Retinal Dystrophy (chief complaint) flashes (chief complaint) hard time adjusting from light to dark (chief complaint)Onset: 26-83-5758Qyirzojncmhn (2 sources)RP (chief complaint) decreased vision (chief complaint)Onset: 03-12-2014 Resolved: 14-59-3572Iefxnzhslgnf (1 source)RP (chief complaint) decreased vision (chief complaint) squigle white lights (chief complaint)Onset: 11-19-2014 Results Test NameValueInterpretationReference RangeFacilityNo Panel InformationOrdered By: Radiologist Radiology on [id number] Work Phone: No Panel Informationon 86-70-7478Mycsrynch Study observation (narrative)[facility] KNEE STANDING BIon 89-00-76[place], [place] [address] XRay Report Signed Patient: YOUSUF AMAYA V MR#: [id number] : 1960 Acct:[id number] Age/Sex: 64 / F ADM Date: 01/21/25 Loc: RAD Attending Dr: FRANNY MCDERMOTT Ordering Physician: FRANNY MCDERMOTT Date of Service: 01/21/25 Procedure(s): XR knee standing BI Accession Number(s): [id number] cc: NELLY ZEE ; FRANNY MCDERMOTT [place] [id number] Patient Name: YOUSUF AMAYA MRN: [id number] date: 1960 Sex: F Assigned Patient Location: [facility] Current Patient Location: [facility] Accession/Order Number: [id number] Exam Date: 01/21/2025 09:30 Report Date: 01/21/2025 10:31 At the request of: FRANNY MCDERMOTT Procedure: XR knee HOLLY 4V CLINICAL DATA: Chronic bilateral knee pain. No reported injury. BILATERAL KNEES - 4 views each COMPARISON: 06/14/2024 AP, lateral, internal oblique and patellar views of both knees were obtained. No acute fracture, dislocation or bony destruction is identified. No patellar subluxation is identified on the patellar views. There is no disproportionate joint space narrowing. There is slight squaring off the articular margins. There is subchondral cystic change at the articular aspect of the right patella on the lateral view. This might be chondromalacia. There is no knee effusion or soft tissue swelling. XR/XR knee standing BI IMPRESSION: MINOR DEGENERATIVE CHANGE. NO ACUTE BONY FINDINGS. AP STANDING KNEES - one view COMPARISON: 06/14/2024 AP standing views of both knees were obtained. There is no acute fracture or dislocation. Once again, there is apparent lateral subluxation of the left patella. This is not however supported on the patellar view obtained today. There is no disproportionate joint space narrowing. Slight squaring off the articular margins is seen. No soft tissue swelling is noted. IMPRESSION: MINOR DEGENERATIVE CHANGE. APPARENT LATERAL SUBLUXATION OF THE PATELLA, ALSO SEEN ON THE PRIOR. Impression dictated by: Franny Mayberry M.D. 01/21/2025 10:31 AM Dictation Location: [place] [address] Electronically authenticated by: [id number] Y Date: 01/21/2025 10:31 Dictated By: Franny Mayberry M.D. Signed By: 01/21/25 1034 DD/ 1031 TD/TT: Patient Portal Concierge:TBHRadiology, Radiologist, - 01/21/2025 [place] [address] XRay Report Signed Patient: YOUSUF AMAYA V MR#: [id number] : 1960 Acct:[id number] Age/Sex: 64 / F ADM Date: 01/21/25 Loc: [facility] Attending Dr: FRANNY MCDERMOTT Ordering Physician: FRANNY MCDERMOTT Date of Service: 01/21/25 Procedure(s): XR knee standing BI Accession Number(s): [id number] cc: NELLY ZEE ; FRANNY MCDERMOTT [place] [address] Patient Name: YOUSUF AMAYA MRN: [id number] date: 1960 Sex: F Assigned Patient Location: [facility] Current Patient Location: [facility] Accession/Order Number: [id number] Exam Date: 01/21/2025 09:30 Report Date: 01/21/2025 10:31 At the request of: FRANNY MCDERMOTT Procedure: XR knee HOLLY 4V CLINICAL DATA: Chronic bilateral knee pain. No reported injury. BILATERAL KNEES - 4 views each COMPARISON: 06/14/2024 AP, lateral, internal oblique and patellar views of both knees were obtained. No acute fracture, dislocation or bony destruction is identified. No patellar subluxation is identified on the patellar views. There is no disproportionate joint space narrowing. There is slight squaring off the articular margins. There is subchondral cystic change at the articular aspect of the right patella on the lateral view. This might be chondromalacia. There is no knee effusion or soft tissue swelling. XR/XR knee standing BI IMPRESSION: MINOR DEGENERATIVE CHANGE. NO ACUTE BONY FINDINGS. AP STANDING KNEES - one view COMPARISON: 06/14/2024 AP standing views of both knees were obtained. There is no acute fracture or dislocation. Once again, there is apparent lateral subluxation of the left patella. This is not however supported on the patellar view obtained today. There is no disproportionate joint space narrowing. Slight squaring off the articular margins is seen. No soft tissue swelling is noted. IMPRESSION: MINOR DEGENERATIVE CHANGE. APPARENT LATERAL SUBLUXATION OF THE PATELLA, ALSO SEEN ON THE PRIOR. Impression dictated by: Franny Mayberry M.D. 01/21/2025 10:31 AM Dictation Location: [place] [address] Electronically authenticated by: [id number] Y Date: 01/21/2025 10:31 Dictated By: Franny Mayberry M.D. Signed By: 01/21/25 1034 DD/ 1031 TD/TT: Patient Portal Concierge: [facility]XR Knee - bilateral 4 Viewson 19-90-5699[place]zWas[place], [place] [address] XRay Report Signed Patient: YOUSUF AMAYA V MR#: [id number] : 1960 Acct:[id number] Age/Sex: 64 / F ADM Date: 01/21/25 Loc: RAD Attending Dr: FRANNY MCDERMOTT Ordering Physician: FRANNY MCDERMOTT Date of Service: 01/21/25 Procedure(s): XR knee HOLLY 4V Accession Number(s): [id number] cc: NELLY ZEE ; FRANNY MCDERMOTT [address] [address] Patient Name: YOUSUF AMAYA MRN: [id number] date: 1960 Sex: F Assigned Patient Location: [facility] Current Patient Location: [facility] Accession/Order Number: [id number] Exam Date: 01/21/2025 09:30 Report Date: 01/21/2025 10:31 At the request of: FRANNY MCDERMOTT Procedure: XR knee HOLLY 4V CLINICAL DATA: Chronic bilateral knee pain. No reported injury. BILATERAL KNEES - 4 views each COMPARISON: 06/14/2024 AP, lateral, internal oblique and patellar views of both knees were obtained. No acute fracture, dislocation or bony destruction is identified. No patellar subluxation is identified on the patellar views. There is no disproportionate joint space narrowing. There is slight squaring off the articular margins. There is subchondral cystic change at the articular aspect of the right patella on the lateral view. This might be chondromalacia. There is no knee effusion or soft tissue swelling. XR/XR knee HOLLY 4V IMPRESSION: MINOR DEGENERATIVE CHANGE. NO ACUTE BONY FINDINGS. AP STANDING KNEES - one view COMPARISON: 06/14/2024 AP standing views of both knees were obtained. There is no acute fracture or dislocation. Once again, there is apparent lateral subluxation of the left patella. This is not however supported on the patellar view obtained today. There is no disproportionate joint space narrowing. Slight squaring off the articular margins is seen. No soft tissue swelling is noted. IMPRESSION: MINOR DEGENERATIVE CHANGE. APPARENT LATERAL SUBLUXATION OF THE PATELLA, ALSO SEEN ON THE PRIOR. Impression dictated by: Franny Mayberry M.D. 01/21/2025 10:31 AM Dictation Location: [place] [address] Electronically authenticated by: [id number] Y Date: 01/21/2025 10:31 Dictated By: Franny Mayberry M.D. Signed By: 01/21/25 1034 DD/ 1031 TD/TT: Patient Portal Concierge:KYLEadiology, Radiologist, - 01/21/2025 [place] [address] XRay Report Signed Patient: YOUSUF AMAYA V MR#: [id number] : 1960 Acct:[id number] Age/Sex: 64 / F ADM Date: 01/21/25 Loc: [facility] Attending Dr: FRANNY MCDERMOTT Ordering Physician: FRANNY MCDERMOTT Date of Service: 01/21/25 Procedure(s): XR knee HOLLY 4V Accession Number(s): [id number] cc: NELLY ZEE ; FRANNY MCDERMOTT [place] [address] Patient Name: YOUSUF AMAYA MRN: [id number] date: 1960 Sex: F Assigned Patient Location: [facility] Current Patient Location: [facility] Accession/Order Number: [id number] Exam Date: 01/21/2025 09:30 Report Date: 01/21/2025 10:31 At the request of: FRANNY MCDERMOTT Procedure: XR knee HOLLY 4V CLINICAL DATA: Chronic bilateral knee pain. No reported injury. BILATERAL KNEES - 4 views each COMPARISON: 06/14/2024 AP, lateral, internal oblique and patellar views of both knees were obtained. No acute fracture, dislocation or bony destruction is identified. No patellar subluxation is identified on the patellar views. There is no disproportionate joint space narrowing. There is slight squaring off the articular margins. There is subchondral cystic change at the articular aspect of the right patella on the lateral view. This might be chondromalacia. There is no knee effusion or soft tissue swelling. XR/XR knee HOLLY 4V IMPRESSION: MINOR DEGENERATIVE CHANGE. NO ACUTE BONY FINDINGS. AP STANDING KNEES - one view COMPARISON: 06/14/2024 AP standing views of both knees were obtained. There is no acute fracture or dislocation. Once again, there is apparent lateral subluxation of the left patella. This is not however supported on the patellar view obtained today. There is no disproportionate joint space narrowing. Slight squaring off the articular margins is seen. No soft tissue swelling is noted. IMPRESSION: MINOR DEGENERATIVE CHANGE. APPARENT LATERAL SUBLUXATION OF THE PATELLA, ALSO SEEN ON THE PRIOR. Impression dictated by: Franny Mayberry M.D. 01/21/2025 10:31 AM Dictation Location: [place] [address] Electronically authenticated by: [id number] Y Date: 01/21/2025 10:31 Dictated By: Franny Mayberry M.D. Signed By: 01/21/25 1034 DD/ 1031 TD/TT: Patient Portal Concierge: ANDREINA Cohen CBC WITH AUTO DIFFon 57-12-0333SGRGCEQHW ABSOLUTE NZFW4XUPP HealthcareBasophils/100 WBC (Bld)0.4 %0.2 - 2.0 %NOM HealthcareEosinophils/100 WBC (Bld)2.3 %0.9 - 7.0 %[facility] CareErythrocyte distribution width (RBC) [Ratio]14.3 %11.0 - 15.0 %NOM HealthcareHematocrit (Bld) [Volume fraction]38.5 %36.0 - 48.0 %[facility] CareHemoglobin (Bld) [Mass/Vol]12.7 g/dL12.0 - 16.0 g/dLUniversity of Missouri Health CareIMMATURE GRANULOCYTES ABS AUTO0.01NORanken Jordan Pediatric Specialty HospitalImmature granulocytes/100 WBC (Bld)0.1 %0.0 - 0.5 %[facility] CareInterpretation and review of laboratory resultsAbnormalNORanken Jordan Pediatric Specialty HospitalLYMPHOCYTES ABSOLUTE AUTO2.3 NOMSt. Louis Children'S HospitalLymphocytes/100 WBC (Bld)33.2 %20.5 - 60.0 %[facility] LawnH (RBC) [Entitic mass]29.8 pg26.7 - 34.0 pgNOMercy Hospital South, formerly St. Anthony's Medical CenterHC (RBC) [Mass/Vol]33 g/dL29.9 - 35.2 g/dLCox Walnut LawnV (RBC) [Entitic vol]90.4 fL81.0 - 99.0 fL [facility] CareMONOCYTES ABSOLUTE AUTO0.5NOID HealthcareMonocytes/100 WBC (Bld) 7.3 %1.7 - 12.0 %[facility] CareNEUTROPHILS ABSOLUTE [id number] Healthcare Neutrophils/100 WBC (Bld)56.7 %43.0 - 75.0 %[facility] CarePlatelet mean volume (Bld) [Entitic vol]8.8 fLLow9.5 - 13.5 fLUniversity of Missouri Health CareTB EO #0.2NOMS HealthcareTB [id number] [facility] RBC4.26NOMS HealthcareTBH AQY3SRIY HealthcareCLINISYNCNOMS HealthcareXR HIP LT MIN 2Von 32-70-5050Pph [address] [address] XRay Report Signed Patient: YOUSUF AMAYA V MR#: [id number] : 1960 Acct:[id number] Age/Sex: 64 / F ADM Date: 11/12/24 Loc: LAB Attending Dr: FRANNY MCDERMOTT Ordering Physician: FRANNY MCDERMOTT Date of Service: 11/12/24 Procedure(s): XR hip LT min 2V Accession Number(s): [id number] cc: NELLY ZEE ; FRANNY MCDERMOTT [place] [address] Patient Name: YOUSUF AMAYA MRN: [id number] date: 1960 Sex: F Assigned Patient Location: LAB Current Patient Location: LAB Accession/Order Number: [id number] Exam Date: 11/12/2024 10:05 Report Date: 11/12/2024 [...] Jr., D.O. 11/12/2024 10:06 AM Dictation Location: [place] [address] Electronically authenticated by: [id number] Y Date: 11/12/2024 10:06 Dictated By: Lew Rosario M.D. Signed By: 11/12/24 1008 DD/ 1006 TD/TT: Patient Portal Concierge:AZALEAHRadiology, Radiologist, - 11/12/2024 The [place] [id number] XRay Report Signed Patient: YOUSUF AMAYA V MR#: [id number] : 1960 Acct:[id number] Age/Sex: 64 / F ADM Date: 11/12/24 Loc: LAB Attending Dr: FRANNY MCDERMOTT Ordering Physician: FRANNY MCDERMOTT Date of Service: 11/12/24 Procedure(s): XR hip LT min 2V Accession Number(s): [id number] cc: NELLY ZEE ; FRANNY MCDERMOTT [place] [id number] Patient Name: YOUSUF AMAYA MRN: [id number] date: 1960 Sex: F Assigned Patient Location: LAB Current Patient Location: LAB Accession/Order Number: [id number] Exam Date: 11/12/2024 10:05 Report Date: 11/12/2024 [...] CHANGE. Impression dictated by: Lew Rosario Jr., D.OHector 11/12/2024 10:06 AM Dictation Location: [place] [address] Electronically authenticated by: [id number] Y Date: 11/12/2024 10:06 Dictated By: Lew Rosario M.D. Signed By: 11/12/24 1008 DD/ 1006 TD/TT: Patient Portal Concierge: ANDREINA HealthcareRadiology Study observation (narrative)NOMS HealthcareXR HIP LT MIN 2VOrdered By: Radiologist Radiology on 91-27-5251BNUP Healthcare Work Phone: mm TOMOSYNTHESIS SCREENING BIon 77-67-1698ZnjWashta, [place] [address] Mammography Report Signed Patient: YOUSUF AMAYA V MR#: [id number] : 1960 Acct:[id number] Age/Sex: 64 / F ADM Date: 11/06/24 Loc: MAMMO Attending Dr: NELLY ZEE Ordering Physician: NELLY ZEE Results: Date of Service: 11/06/24 Follow Up: Procedure(s): MM tomosynthesis screening BI Accession Number(s): [id number] cc: NELLY ZEE Patient Name: YOUSUF AMAYA MR#: [id number] : 1960 Exam Date: 11/06/2024 Ordering Doctor: [...] Family Cancers None LOCATION: [facility] BREAST COMPOSITION: The breasts are almost [...] Signed By: 11/06/24 1115 DD/ 1114 TD/TT: Patient Portal Concierge:TBHRadiology, Radiologist, - 11/06/2024 [place] [address] Mammography Report Signed Patient: YOUSUF AMAYA V MR#: [id number] : 1960 Acct:[id number] Age/Sex: 64 / F ADM Date: 11/06/24 Loc: MAMMO Attending Dr: NELLY ZEE Ordering Physician: NELLY ZEE Results: Date of Service: 11/06/24 Follow Up: Procedure(s): MM tomosynthesis screening BI Accession Number(s): [id number] cc: YAYOLANDY BartonLAURENCE Patient Name: YOUSUF AMAYA MR#: [id number] : 1960 Exam Date: 11/06/2024 Ordering Doctor: [...] Family Cancers None LOCATION: [facility] BREAST COMPOSITION: The breasts are almost [...] Signed By: 11/06/24 1115 DD/ 1114 TD/TT: Patient Portal Concierge: ANDREINA HealthcareRadiology Study observation (narrative)[facility] HealthcareMM TOMOSYNTHESIS SCREENING BIOrdered By: Radiologist Radiology on 49-75-9855POLW [employer] Work Phone: aLL BASIC METABOLIC PANELon 89-72-6347Aasnx gap [Moles/Vol]8.6 mmol/LNOMS HealthcareCalcium [Mass/Vol]9.3 mg/dL8.5 - 10.1 mg/dL NOMS HealthcareChloride [Moles/Vol]103 mmol/L98 - 107 mmol/LNOMS HealthcareCO2 [Moles/Vol]31.7 mmol/L21.0 - 32.0 mmol/LNOMS HealthcareCreatinine [Mass/Vol]1.29 mg/dLHigh0.55 - 1.02 mg/dLNOMS HealthcareGFR/1.73 sq M.predicted CKD-EPI (S/P/Bld) [Vol rate/Area]51Low>=60 mL/min/1.73m 2NOMS HealthcareGlucose [Mass/Vol]119 mg/iOZhpw87 - 106 mg/dLNOMS HealthcareInterpretation and review of laboratory resultsAbnormalNOMS HealthcarePotassium [Moles/Vol]3.3 mmol/LLow3.5 - 5.1 mmol/LNOMS HealthcareSodium [Moles/Vol]140 mmol/L136 - 145 mmol/LNOMS HealthcareTBH EGFR-NON AF HVURRBUY63Blj>=60 mL/min/1.73m 2NOMS HealthcareUrea nitrogen [Mass/Vol]19 mg/dLHigh7.0 - 18.0 mg/dLNOMS HealthcareUrea nitrogen/Creatinine [Mass ratio]14.7 mg/mgNOMS HealthcareCLINISYNCNOMS HealthcareXR KNEE HOLLY 3Von 14-16-2338[address] [address] XRay Report Signed Patient: YOUSUF AMAYA V MR#: [id number] : 1960 Acct:[id number] Age/Sex: 63 / F ADM Date: 06/14/24 Loc: LAB Attending Dr: FRANNY MCDERMOTT Ordering Physician: FRANNY MCDERMOTT Date of Service: 06/14/24 Procedure(s): XR knee HOLLY 3V Accession Number(s): [id number] cc: NELLY ZEE ; FRANNY MCDERMOTT [address] [address] Patient Name: YOUSUF AMAYA MRN: [id number] date: 1960 Sex: F Assigned Patient Location: LAB Current Patient Location: LAB Accession/Order Number: [id number] Exam Date: 06/14/2024 13:05 Report Date: 06/14/2024 [...] Franny Mayberry M.D.06/14/2024 1:13 PM Dictation Location: [place] [address] Electronically authenticated by: [id number] Y Date: 06/14/2024 13:13 Dictated By: Franny Mayberry M.D. Signed By: 06/14/24 1316 DD/ 131 TD/TT: Patient Portal Concierge:TBHRadiology, Radiologist, MD - 06/14/2024 [place] [address] XRay Report Signed Patient: YOUSUF AMAYA V MR#: [id number] : 1960 Acct:[id number] Age/Sex: 63 / F ADM Date: 06/14/24 Loc: LAB Attending Dr: FRANNY MCDERMOTT Ordering Physician: FRANNY MCDERMOTT Date of Service: 06/14/24 Procedure(s): XR knee HOLLY 3V Accession Number(s): [id number] cc: NELLY ZEE ; FRANNY MCDERMOTT The [address] [address] Patient Name: YOUSUF AMAYA MRN: [id number] date: 1960 Sex: F Assigned Patient Location: LAB Current Patient Location: LAB Accession/Order Number: [id number] Exam Date: 06/14/2024 13:05 Report Date: 06/14/2024 [...] Franny Mayberry M.D.06/14/2024 1:13 PM Dictation Location: [place] [address] Electronically authenticated by: [id number] Y Date: 06/14/2024 13:13 Dictated By: Franny Mayberry M.D. Signed By: 06/14/24 1316 DD/ 1313 TD/TT: Patient Portal Concierge: ANDREINA HealthcareRadiology Study observation (narrative)[facility] HealthcareXR KNEE HOLLY 3VOrdered By: Radiologist Radiology on 94-58-6379IJFE [employer] Work Phone: Lon 05-16-2024L Specimen: [id number] Received: 05/16/24 Status: LALY Dougherty Num: [id number] Spec Type: Surgical Subm Dr: Sivakumar Juárez MD Tissues: A Soft Tissue Mass - Biopsy (HIATAL HERNIA POLYP) B Gastric Biopsy (GASTRIC BX) C Esophagus Biopsy (ESOPHAGUS BX) Procedures: HE/8, Gross/Micro L5, Gross/Micro L4/2, H PYLORI/2 Age/ Patient Sex Location Account Attending Physician Yousuf Amaya V 63/F [id number] Sivakumar Juárez MD SPEC NUM: [id number] RECD: 05/16/24 STATUS: LALY ALEMANChloe NUM: [id number] KARAN: 05/16/24-13[address] [facility] [address]: Sivakumar Juárez MD ENTERED: 05/16/[address] [facility] [address]: DAVID TYPE: Surgical DEPT: S ENTERED BY: [id number] RECV BY: [id number] ORDERED: HE/8, Gross/Micro L5, Gross/Micro L4/2, H [...] out H. pylori, Part rule out Ruth's Specimen: [id number] Received: 05/16/24 Status: LALY Dougherty Num: [id number] Spec Type: Surgical Subm Dr: Sivakumar Juárez MD Tissues: A Soft Tissue Mass - Biopsy (HIATAL HERNIA POLYP) B Gastric Biopsy (GASTRIC BX) C Esophagus Biopsy (ESOPHAGUS BX) Procedures: HE/8, Gross/Micro L5, Gross/Micro L4/2, H PYLORI/2 Patient: Jose LuisYousuf bui Kenna [id number] (Continued) Specimen: [id number] Received: 05/16/24 (Continued) Signed (signature on file) Allison Chi MD 05/20/24 1410 Specimen: [id number] Received: 05/16/24 Status: LALY Dougherty Num: [id number] Spec Type: Surgical Subm Dr: Sivakumar Juárez MD Tissues: A Soft Tissue Mass - Biopsy (HIATAL HERNIA POLYP) B Gastric Biopsy (GASTRIC BX) C Esophagus Biopsy (ESOPHAGUS BX) Procedures: HE/8, Gross/Micro L5, Gross/Micro L4/2, H PYLORI/2 Patient: Jose LuisYousuf V [id number] (Continued) Specimen: [id number] Received: 05/16/24 (Continued) Gross Description [...] specimen entirely submitted in A2. (2, ns, [id number] A)J Part B is received in formalin labeled with the patients name, date of , and gastric BX are 2 burr-mac, focally erythematous, friable, 0.3 cm each in greatest dimension tissue bits. (1, ns, S20-983 B)J Part See is received in formalin labeled with the patients name, date of , and esophagus BX are 2 pale mac, focally erythematous, feathery, 0.1 to 0.3 cm in greatest dimension tissue bits. The specimen is entirely submitted in a single cassette. (1, ns, S25-364 C) CPT Codes 99108w5, 40982 Specimen: [id number] Received: 05/16/24 Status: LALY Dougherty Num: [id number] Spec Type: Surgical Subm Dr: Sivakumar Juárez MD Tissues: A Soft Tissue Mass - Biopsy (HIATAL HERNIA POLYP) B Gastric Biopsy (GASTRIC BX) C Esophagus Biopsy (ESOPHAGUS BX) Procedures: HE/8, Gross/Micro L5, Gross/Micro L4/2, H PYLORI/2 Patient: Yousuf Amaya V F01 (more content not included)...[facility] BASIC METABOLIC PANELon 24-85-2623Nxqsc gap [Moles/Vol]14.2 mmol/LNOMS HealthcareCalcium [Mass/Vol]9.4 mg/dL8.5 - 10.1 mg/dL NOMS HealthcareChloride [Moles/Vol]101 mmol/L98 - 107 mmol/LNOMS HealthcareCO2 [Moles/Vol]26.3 mmol/L21.0 - 32.0 mmol/LNOMS HealthcareCreatinine [Mass/Vol]1.18 mg/dLHigh0.55 - 1.02 mg/dLNOID HealthcareGFR/1.73 sq M.predicted CKD-EPI (S/P/Bld) [Vol rate/Area]56Low>=60 mL/min/1.73m 2NOMS HealthcareGlucose [Mass/Vol]108 mg/xSFbvf36 - 106 mg/dLNOID HealthcareInterpretation and review of laboratory resultsAbnormalNOMS HealthcarePotassium [Moles/Vol]3.5 mmol/L3.5 - 5.1 mmol/LNOMS HealthcareSodium [Moles/Vol]138 mmol/L136 - 145 mmol/LNOMS HealthcareTBH EGFR-NON AF EZXRAGYP99Mhc>=60 mL/min/1.73m 2NOMS HealthcareUrea nitrogen [Mass/Vol]17.0 mg/dL7.0 - 18.0 mg/dLNOID HealthcareUrea nitrogen/Creatinine [Mass ratio]14.4 mg/mgNOID HealthcareCLINISYNCNMERCY HOSPITAL [facility] HealthcareALL CBC WITH AUTO DIFFon 72-50-5535YQECWKYAM ABSOLUTE AUTO0.0NOMS HealthcareBasophils/100 WBC (Bld)0.4 %0.2 - 2.0 %NOMS HealthcareEosinophils/100 WBC (Bld)1.8 %0.9 - 7.0 %NOMS HealthcareErythrocyte distribution width (RBC) [Ratio]14.3 %11.0 - 15.0 %NOMS HealthcareHematocrit (Bld) [Volume fraction]40.3 %36.0 - 48.0 %NOMS HealthcareHemoglobin (Bld) [Mass/Vol]12.7 g/dL12.0 - 16.0 g/dLNOID HealthcareIMMATURE GRANULOCYTES ABS AUTO0.01NOMS HealthcareImmature granulocytes/100 WBC (Bld)0.1 %0.0 - 0.5 %NOM HealthcareInterpretation and review of laboratory resultsAbnormalNOMS HealthcareLYMPHOCYTES ABSOLUTE AUTO2.4 NOMS HealthcareLymphocytes/100 WBC (Bld)32.9 %20.5 - 60.0 %NOMS HealthcareH (RBC) [Entitic mass]30.0 pg26.7 - 34.0 pgNOMercy Hospital South, formerly [address] Anthony's Medical CenterHC (RBC) [Mass/Vol] 31.5 g/dL29.9 - 35.2 g/dLNOID HealthcareMCV (RBC) [Entitic vol]95.0 fL81.0 - 99.0 fLNOID HealthcareMONOCYTES ABSOLUTE AUTO0.4NOMS HealthcareMonocytes/100 WBC (Bld)6.0 %1.7 - 12.0 %NOMS HealthcareNEUTROPHILS ABSOLUTE AUTO4.3NOMS Healthcare Neutrophils/100 WBC (Bld)58.8 %43.0 - 75.0 %NOMS HealthcarePlatelet mean volume (Bld) [Entitic vol]8.6 fLLow9.5 - 13.5 fLNOID HealthcareTBH EO #0.1NOMS HealthcareTBH [id number] HealthcareTBH RBC4.24NOMS HealthcareTBH WBC7.4NOMS HealthcareCLINISYNCNOMS HealthcareMR LUMBAR SPINE WO Adithya 93-53-6314[place], [place] [address] Magnetic Resonance Report Signed Patient: YOUSUF AMAYA V MR#: [id number] : 1960 Acct:[id number] Age/Sex: 63 / F ADM Date: 11/10/23 Loc: MRI Attending Dr: Dorita Dye SALON STYLIST Ordering Physician: Dorita Dye NP Date of Service: 11/10/23 Procedure(s): MR lumbar spine wo con Accession Number(s): [id number] cc: NELLY ZEE ; Dorita Dye NP [place] [id number] Patient Name: YOUSUF AMAYA MRN: [id number] date: 1960 Sex: F Assigned Patient Location: MRI Current Patient Location: Accession/Order Number: [id number] Exam Date: 11/10/2023 07:05 Report Date: 11/13/2023 [...] M.D. Signed By: 11/13/23810 DD/ 8 TD/TT: Patient Portal Concierge:TBHRadiology, Radiologist, MD - 11/13/2023 [place] [address] Magnetic Resonance Report Signed Patient: YOUSUF AMAYA V MR#: [id number] : 1960 Acct:[id number] Age/Sex: 63 / F ADM Date: 11/10/23 Loc: MRI Attending Dr: Dorita Dye [employer]ON STYLIST Ordering Physician: Dorita Dye NP Date of Service: 11/10/23 Procedure(s): MR lumbar spine wo con Accession Number(s): [id number] cc: NELLY ZEE ; Dorita Dye NP [place] [id number] Patient Name: YOUSUF AMAYA MRN: [facility]:[id number] date: 1960 Sex: F Assigned Patient Location: MRI Current Patient Location: Accession/Order Number: [id number] Exam Date: 11/10/2023 07:05 Report Date: 11/13/2023 [...] M.D. Signed By: 11/13/23810 DD/ 8 TD/TT: Patient Portal Concierge: ANDREINA HealthcareRadiology Study observation (narrative)ANDREINA [facility] LUMBAR SPINE WO CONOrdered By: Radiologist Radiology on 41-60-7684NFPV Healthcare Work Phone: mm TOMOSYNTHESIS SCREENING BIon 67-96-1603WrwWashta, [place] [address] Mammography Report Signed Patient: YOUSUF AMAYA V MR#: [id number] : 1960 Acct:[id number] Age/Sex: 63 / F ADM Date: 10/27/23 Loc: MAMMO Attending Dr: NELLY ZEE Ordering Physician: NELLY ZEE Results: Date of Service: 10/27/23 Follow Up: Procedure(s): MM tomosynthesis screening BI Accession Number(s): [id number] cc: NELLY EZE Patient Name: YOUSUF AMAYA MR#: [id number] : 1960 Exam Date: 10/27/2023 Ordering Doctor: DR NELLY ZEE M.D. RADIOLOGY [...] Family Cancers None LOCATION: [facility] BREAST COMPOSITION: There are scattered areas [...] LUMP SHOULD BE BIOPSIED. Dictated by: Kingsley Burnette MD on 10/30/2023 at 07:20 Approved by: Kingsley Burnette MD on 10/30/2023 at 07:21 Dictated By: Kingsley Burnette M.D. Signed By: 10/30/23721 DD/ 0 TD/TT: Patient Portal Concierge:AZALEAHRadiology, RadiologistMD - 10/30/2023 [place] [address] Mammography Report Signed Patient: YOUSUF AMAYA V MR#: [id number] : 1960 Acct:[id number] Age/Sex: 63 / F ADM Date: 10/27/23 Loc: MAMMO Attending Dr: NELLY ZEE Ordering Physician: NELLY ZEE Results: Date of Service: 10/27/23 Follow Up: Procedure(s): MM tomosynthesis screening BI Accession Number(s): [id number] cc: NELLY ZEE Patient Name: YOUSUF AMAYA MR#: [id number] : 1960 Exam Date: 10/27/2023 Ordering Doctor: DR NELLY ZEE M.D. RADIOLOGY [...] Family Cancers None LOCATION: [facility] BREAST COMPOSITION: There are scattered areas [...] LUMP SHOULD BE BIOPSIED. Dictated by: Kingsley Burnette MD on 10/30/2023 at 07:20 Approved by: Kingsley Burnette MD on 10/30/2023 at 07:21 Dictated By: Kingsley Burnette M.D. Signed By: 10/30/23721 DD/ 0 TD/TT: Patient Portal Concierge: NOMS HealthcareRadiology Study observation (narrative)[facility] TOMOSYNTHESIS SCREENING BIOrdered By: Radiologist Radiology on 37-23-0388UFGF Healthcare Work Phone: MG MAMM SCREEN 3D HOLLY CADon 32-31-3225FY MAMM SCREEN 3D HOLLY CADPatient: YOUSUF AMAYA V. Exam Date: 10/20/2021 : 1960 Gender:F Ordering : DR NELLY ZEE M.D. Admission #: [id number] Family : Order #: [id number] CLICK HERE TO VIEW EXAM RADIOLOGY REPORT [...] Family Cancers None LOCATION: [facility] BREAST COMPOSITION: Scattered areas fibroglandular density. [...] LUMP SHOULD BE BIOPSIED. Dictated by: Kingsley Burnette MD on 10/20/2021 at 09:49 Approved by: Kingsley Burnette MD on 10/20/2021 at 09:58NoOhioHealth [facility] w/ Reflex to Free T4on 68-10-1747MGQ7.990 uIU/mLNormal0.400-4.500[facility] SpecialistComment on above:Performed By: #### TSH reflex FT4 #### [facility] [address] [place], [place] [id number] Blood Count with Auto Diffon 59-20-1796Hfzrwttpf (Bld) [#/Vol]0.05 10*3/uLNormal0.00-0.20[facility] SpecialistComment on above:Performed By: #### LIPD, TSH reflex FT4, CMP, FT4, CBCAD #### [facility] [address] [place], [place] [address]Uniztkccz/100 WBC (Bld)0.9 %[facility] SpecialistComment on above:Performed By: #### LIPD, TSH reflex FT4, CMP, FT4, CBCAD #### [facility] [address] [place], [place] [address]Ldfvmxoolqr (Bld) [#/Vol]0.41 10*3/uLNormal0.02-0.50[facility] SpecialistComment on above:Performed By: #### LIPD, TSH reflex FT4, CMP, FT4, CBCAD #### [facility] [address] [place], [place] [address]Ldkaoowznhu/100 WBC (Bld)7.2 %[facility] SpecialistComment on above:Performed By: #### LIPD, TSH reflex FT4, CMP, FT4, CBCAD #### [facility] [address] [place], [place] [address]Edpptvouecn distribution width (RBC) [Ratio]13.4 %Normal 11.0-15.0[facility] SpecialistComment on above:Performed By: #### LIPD, TSH reflex FT4, CMP, FT4, CBCAD #### [facility] [address] [place], [place] [address]Ezunmuydzd (Bld) [Volume fraction]41.2 %Kqbyky58.0-47.0 [facility] SpecialistComment on above:Performed By: #### LIPD, TSH reflex FT4, CMP, FT4, CBCAD #### [facility] [address] [place], [place] [address]Sbqakbhwce (Bld) [Mass/Vol]13.1 g/nJLmvkhl52.6-15.5[facility] SpecialistComment on above:Performed By: #### LIPD, TSH reflex FT4, CMP, FT4, CBCAD #### [facility] [address] [place], [place] [id number] (Bld) [#/Vol]1.8 10*3/uLNormal0.9-3.9[facility] SpecialistComment on above:Performed By: #### LIPD, TSH reflex FT4, CMP, FT4, CBCAD #### [facility] [address] [place], [place] [address]Yoddnqzcscn/100 WBC (Bld)31.8 %NormalNoWilson Street Hospital SpecialistComment on above:Performed By: #### LIPD, TSH reflex FT4, CMP, FT4, CBCAD #### [facility] [address] [place], [place] [id number] (RBC) [Entitic mass]29.[address]w09[address]0-[address] SpecialistComment on above:Performed By: #### LIPD, TSH reflex FT4, CMP, FT4, CBCAD #### [facility] [address] [place], [place] [address]FXJM (RBC) [Mass/Vol]31.8 g/dLLow32.0-36.0No[address] [facility] SpecialistComment on above:Performed By: #### LIPD, TSH reflex FT4, CMP, FT4, CBCAD #### [facility] [address] [place], [place] [address]UGR (RBC) [Entitic vol]92 wOBssqzu99-882Fqukpwlb [facility] SpecialistComment on above:Performed By: #### LIPD, TSH reflex FT4, CMP, FT4, CBCAD #### [facility] [address] [place], [place] [address]Igffsbkuh (Bld) [#/Vol]0.5 10*3/uLNormal0.2-0.9No[address] [facility] SpecialistComment on above:Performed By: #### LIPD, TSH reflex FT4, CMP, FT4, CBCAD #### [facility] [address] [place], [place] [address]Kbafwxjjq/100 WBC (Bld)8.1 %NormalNoWilson Street Hospital SpecialistComment on above:Performed By: #### LIPD, TSH reflex FT4, CMP, FT4, CBCAD #### [facility] [address] [place], [place] [address]Auyncjrbyak (Bld) [#/Vol]3.0 10*3/uLNormal1.5-7.8NoWilson [address] [facility] SpecialistComment on above:Performed By: #### LIPD, TSH reflex FT4, CMP, FT4, CBCAD #### [facility] [address] [place], [place] [address]Kxdlophzidj/100 WBC (Bld)51.6 %NormalNoWilson Street Hospital SpecialistComment on above:Performed By: #### LIPD, TSH reflex FT4, CMP, FT4, CBCAD #### [facility] [address] [place], [place] [address]Utzdagvr mean volume (Bld) [Entitic vol]9.[address] fLNormal 7[address]50-12.50[address] [facility] SpecialistComment on above:Performed By: #### LIPD, TSH reflex FT4, CMP, FT4, CBCAD #### [facility] [address] [place], [place] [address]Xekokqakj (Bld) [#/Vol]367 10*3/jMAqrbob143-831Qghyofzi [facility] SpecialistComment on above:Performed By: #### LIPD, TSH reflex FT4, CMP, FT4, CBCAD #### [facility] [address] [place], [place] [address]SYC (Bld) [#/Vol]4.47 10*6/uLNormal3.90-5.20No[address] [facility] SpecialistComment on above:Performed By: #### LIPD, TSH reflex FT4, CMP, FT4, CBCAD #### [facility] [address] [place], [place] [address]QKS-HA70.[address]zse09[address]0-[address] Specialist Comment on above:Performed By: #### LIPD, TSH reflex FT4, CMP, FT4, CBCAD #### [facility] [address] [place], [place] [address]YYC (Bld) [#/Vol]5.7 10*3/uLNormal3.8-11.0[address] [facility] SpecialistComment on above:Performed By: #### LIPD, TSH reflex FT4, CMP, FT4, CBCAD #### [facility] [address] [place], [place] [address]Eloygyqvzkype Metabolic Panelon [id number] [Mass/Vol] 4.5 g/dLNormal3.6-5.1NortherMem[facility] SpecialistComment on above:Performed By: #### LIPD, TSH reflex FT4, CMP, FT4, CBCAD #### [facility] [address], [place] [id number]/Globulin [Mass ratio]1.7 {ratio}Normal1.0-2.5NoOhioHealth Dublin Methodist HospitalComment on above:Performed By: #### LIPD, TSH reflex FT4, CMP, FT4, CBCAD #### [facility] [address], [place] [id number] [Catalytic activity/Vol]89 U/HEzfriv67-489Wbjkbtzw [facility] SpecialistComment on above:Performed By: #### LIPD, TSH reflex FT4, CMP, FT4, CBCAD #### [facility] [address], [place] [id number] [Catalytic activity/Vol]27 U/LNormal6-33NoWilson [address] Hospital SpecialistComment on above:Result Comment: 03/24/2021 Female reference range changed.Performed By: #### LIPD, TSH reflex FT4, CMP, FT4, CBCAD #### [facility] [address], [place] [id number] gap [Moles/Vol]18 mmol/CPfenvs97-79Oojkyibu [facility] SpecialistComment on above:Result Comment: Effective 04/29/2019 reference range changed.Performed By: #### LIPD, TSH reflex FT4, CMP, FT4, CBCAD #### [facility] [address], [place] [id number] [Catalytic activity/Vol]25 U/LNormal9-34NortWayne HealthCare [facility] SpecialistComment on above:Performed By: #### LIPD, TSH reflex FT4, CMP, FT4, CBCAD #### [facility] [address], [place] [id number] RatioNormal6-22[facility] Main CampusChild Attendant Comment on above:Performed By: #### LIPD, TSH reflex FT4, CMP, FT4, CBCAD #### [facility] [address], [place] [id number] [Mass/Vol]9.5 mg/dLNormal8.6-10.2[facility] SpecialistComment on above:Performed By: #### LIPD, TSH reflex FT4, CMP, FT4, CBCAD #### [facility] [address], [place] [id number] [Moles/Vol]102 mmol/HOblwsv64-158Luopnwbl [facility] SpecialistComment on above:Performed By: #### LIPD, TSH reflex FT4, CMP, FT4, CBCAD #### [facility] [address], [place] [id number] [Moles/Vol]26 mmol/LIpwnpf04-28Wzxvngje [facility] SpecialistComment on above:Performed By: #### LIPD, TSH reflex FT4, CMP, FT4, CBCAD #### [facility] [address], [place] [id number] [Mass/Vol]1.0 mg/dLNormal0.6-1.4[facility] SpecialistComment on above:Performed By: #### LIPD, TSH reflex FT4, CMP, FT4, CBCAD #### [facility] [address], [place] [id number] mL/min/1.20w4Ejfwhq>60[facility] SpecialistComment on above:Performed By: #### LIPD, TSH reflex FT4, CMP, FT4, CBCAD #### [facility] [address], [place] [id number] mL/min/1.81b2Jjf>[address] [facility] Specialist Comment on above:Performed By: #### LIPD, TSH reflex FT4, CMP, FT4, CBCAD #### [facility] [address], [place] [id number] (S) [Mass/Vol]2.6 g/dLNormal1.9-3.7[address] [facility] SpecialistComment on above:Performed By: #### LIPD, TSH reflex FT4, CMP, FT4, CBCAD #### [facility] [address], [place] [id number] [Mass/Vol]110 mg/rILuhx39-38Zcafubqm [place] [facility] SpecialistComment on above:Result Comment: For FASTING Glucose --- ADA reference ranges: Normal 65-99 mg/dl Prediabetes 100-125 Diabetes >/= 126Performed By: #### LIPD, TSH reflex FT4, CMP, FT4, CBCAD #### [facility] [address], [place] [id number] [Moles/Vol]3.5 mmol/LNormal3.5-5.5[address] [facility] SpecialistComment on above:Performed By: #### LIPD, TSH reflex FT4, CMP, FT4, CBCAD #### [facility] [address], [place] [id number] [Mass/Vol]7.1 g/dLNormal6.1-8.1[facility] SpecialistComment on above:Performed By: #### LIPD, TSH reflex FT4, CMP, FT4, CBCAD #### [facility] [address], [place] [id number] [Moles/Vol]142 mmol/WIuawhh436-444Kqknljdt [place] [facility] SpecialistComment on above:Performed By: #### LIPD, TSH reflex FT4, CMP, FT4, CBCAD #### [facility] [address], [place] [id number]<0.3NormalNortWayne HealthCare Main Campus SpecialistComment on above:Performed By: #### LIPD, TSH reflex FT4, CMP, FT4, CBCAD #### [facility] [address], [place] [id number] nitrogen [Mass/Vol]21 mg/dLNormal7-25[address] [facility] SpecialistComment on above:Performed By: #### LIPD, TSH reflex FT4, CMP, FT4, CBCAD #### [facility] [address], [place] [id number] T4on 18-62-3635Vhvd T4 [Mass/Vol]1.17 ng/dLNormal 0.80-1.80[address] [facility] SpecialistComment on above:Performed By: #### LIPD, TSH reflex FT4, CMP, FT4, CBCAD #### [facility] [address], [place] [id number] Panelon 95-12-6923Lsrmefepvqq [Mass/Vol]256 mg/dLHigh 125-200[address] [facility] SpecialistComment on above:Result Comment: Low risk < 200mg/dL Borderline risk 201-239 mg/dl High risk > or equal to 240Performed By: #### LIPD, TSH reflex FT4, CMP, FT4, CBCAD #### [facility] [address], [place] [id number] in HDL [Mass/Vol]68 mg/dLNormal>40[address] [facility] SpecialistComment on above:Result Comment: High Cardiovascular Risk HDL <40 mg/dL Low Cardiovascular Risk HDL > or equal to 60 mg/dlPerformed By: #### LIPD, TSH reflex FT4, CMP, FT4, CBCAD #### [facility] [address], [place] [id number] in LDL [Mass/Vol]170 mg/dLNormalNoWilson [address] Hospital SpecialistComment on above:Result Comment: LDL ATP III CLASSIFICATION LDL less than 100 mg/dl Optimal LDL 100-129 mg/dl Near or above optimal LDL 130-159 Borderline high LDL 160-189 High LDL greater than 189 mg/dl Very HighPerformed By: #### LIPD, TSH reflex FT4, CMP, FT4, CBCAD #### [facility] [address], [place] [id number] in VLDL [Mass/Vol]18 mg/dLNormalMount Carmel Health System SpecialistComment on above:Performed By: #### LIPD, TSH reflex FT4, CMP, FT4, CBCAD #### [facility] [address], [place] [id number].total/Cholesterol in HDL [Mass ratio]4 {ratio} NormalNoWilson Street Hospital SpecialistComment on above:Performed By: #### LIPD, TSH reflex FT4, CMP, FT4, CBCAD #### [facility] [address], [place] [id number] [Mass/Vol]89 mg/dKFeorce89-159Fvqtorke [place] [facility] SpecialistComment on above:Result Comment: TRIG ATPIII CLASSIFICATIONS TRIG less than 150 mg/dl Normal TRIG 150-199 mg/dl Borderline High TRIG 200-500 mg/dl High TRIG greather than 500 mg/dl Very HighPerformed By: #### LIPD, TSH reflex FT4, CMP, FT4, CBCAD #### [facility] [address], [place] [id number] w/ Reflex to Free T4on 01-38-6872OZ0 reflexFree A1Akmmgo [facility] SpecialistComment on above:Performed By: #### LIPD, TSH reflex FT4, CMP, FT4, CBCAD #### [facility] [address], [place] [id number] uIU/mLHigh0.400-4.500[address] [facility] SpecialistComment on above:Performed By: #### LIPD, TSH reflex FT4, CMP, FT4, CBCAD #### [facility] [address], [place] [id number]-43 PCR ([facility])on 91-50-0836SBZZ-CoV-2 (COVID-19) RNA IVAN+probe Ql (Unsp spec)Not detectedNormalNOT DETECTEDSycamore Medical Center Comment on above:Result Comment: This test is not yet approved or cleared by the [place] FDA. When there are no FDA-approved or cleared tests available, and other criteria are met, FDA can make tests available under an emergency access mechanism called an Emergency Use Authorization (EUA). The EUA for this test is supported by the [employer] of Health and Human Service's (HHS's) declaration that circumstances exist to justify the emergency use of in vitro diagnostics for the detection and/or diagnosis of the virus that causes COVID- 19. This EUA will remain in effect (meaning [...] of clinical signs and symptoms consistent with SARS-CoV-2.Performed By: #### CVDTB #### [facility] [address] [place] [address] Dr. Dontae Toth Vital Signs Date TimeVital SignValuePerforming KvhdukycpRpiklzan50-24-0126 13:47-0400Body wjeuja335.94 Georges Zee MD Work Phone: [phone] [place], [place] 2701910-17-2025 13:47-0400 Body mass index (BMI) [Ratio]29.2 kg/a4EodyrNelly Zee MD Work Phone: 1(641)232-[address] [place], [place] 2701910-17-2025 13:47-0400 Body moipbr49.3 kgNelly Zee MD Work Phone: [phone])[address]10-17-2025 13:47-0400 Diastolic blood scuevvwv18 mm[Hg]Nelly Zee MD Work Phone: 1(569)999-[address] [place], [place] 2701910-17-2025 13:47-0400 Heart nlhq223 /minNelly Zee MD Work Phone: 1(420)417-[address] [place], [place] 2701910-17-2025 13:47-0400 Systolic blood omujzqzb503 mm[Hg]Nelly Zee MD Work Phone: 1(419)[address] [place], [place] 8241109-30-2025 08:09-0400 Body ywjfhu585.9 cmVanen Hemmer PA Work Phone: 1(666)[address] [place], [place] 3064809-30-2025 08:09-0400Body mass index (BMI) [Ratio]29.44 kg/r5Bcveq Hemmer PA Work Phone: 1(562)[address] [place], [place] 3064809-30-2025 08:09-0400Body obuqrw58.67 kgKaren Hemmer PA Work Phone: 1(187)[address] [place], [place] 3064809-30-2025 08:09-0400Diastolic blood ubulpjka82 mm[Hg]Franny Hemmer PA Work Phone: 1(731)[address] [place], [place] 3064809-30-2025 08:09-0400Heart rate91 /min Franny Hemmer PA Work Phone: 1(822)[address] [place], [place] 3064809-30-2025 08:09-0400Respiratory rate16 /minVanen Hemmer PA Work Phone: 1(490)[address] [place], [place] 3064809-30-2025 08:09-8834TnY5% (BldA) [Mass fraction]97 %Franny Hemmer PA Work Phone: 1(500)[address] [place], [place] 3064809-30-2025 08:09-0400Systolic blood yotwwpdf560 mm[Hg]Franny Hemmer PA Work Phone: 1(213)[address] [place], [place] 3064808-22-2025 13:07-0400Body ndfanb041.94 Georges Zee MD Work Phone: 1(991)[address] [place], [place] 8241108-22-2025 13:07-0400 Body mass index (BMI) [Ratio]29.2 kg/b1UkqfaNelly Zee MD Work Phone: 1(660)[address] [place], [place] 8241108-22-2025 13:07-0400 Body .3 kgNelly Zee MD Work Phone: 1(362)[address] [place], [place] 8241108-22-2025 13:07-0400 Diastolic blood gdaymcaj56 mm[Hg]Nelly Zee MD Work Phone: 1(004)[address] [place], [place] 8241108-22-2025 13:07-0400 Systolic blood otnaonwk543 mm[Hg]Nelly Zee MD Work Phone: 1(418)[address] [place], [place] 8241107-22-2025 08:07-0400 Body dwqite019.9 cmVanen Hemmer PA Work Phone: 1(927)[facility] [place], [place] [address]Ylhpjindei42-85-1857 08:07-0400Body mass index (BMI) [Ratio]29.48 kg/t9Bsqmc Hemmer PA Work Phone: 1(338)[address] [place], [place] 3064807-22-2025 08:07-0400Body .76 kgVanen Hemmer PA Work Phone: 1(695)[address] [place], [place] 3064807-22-2025 08:07-0400Diastolic blood jgrakjel66 mm[Hg]Franny Hemmer PA Work Phone: 1(711)[address] [place], [place] 3064807-22-2025 08:07-0400Heart rate91 /min Franny Hemmer PA Work Phone: 1(134)[address] [place], [place] 3064807-22-2025 08:07-0400Respiratory rate16 /minVanen Hemmer PA Work Phone: 1(381)[facility] [place], [place] [address]Ujuapoeeuu55-28-4868 08:07-9838HxE4% (BldA) [Mass fraction]95 %Franny Hemmer PA Work Phone: 1(149)[facility]-[address] [place], [place] [address]Tmoarndnhl72-63-8249 08:07-0400Systolic blood mm[Hg]Franny Hemmer PA Work Phone: 1(555)[facility]-[address] [place], [place] [address]Hzxthfjalb24-60-0775 08:58-0400Body xhcjeu326.9 cmVanen Hemmer PA Work Phone: 1(041)[facility]-[address] [place], [place] [address]Bmdgpuvgxm53-06-2157 08:58-0400Body mass index (BMI) [Ratio]29.32 kg/y8Wbvhl Hemmer PA Work Phone: 1(533)[facility]-[address] [place], [place] [address]Vzcgriysjj15-92-6200 08:58-0400Body njarry97.4 kg Franny Hemmer PA Work Phone: 1(019)[facility]-[address] [place], [place] [address]Grrgaafkec28-23-1490 08:58-0400Diastolic blood thrtlylo62 mm[Hg]Franny Hemmer PA Work Phone: [facility] CareWrplvcdfrw21-08-1198 08:58-0400Heart rate93 /min Franny Hemmer PA Work Phone: 1(347)[facility]1422[facility] CareFkvdrfxtlh81-84-3198 08:58-0400Respiratory rate16 /minKaren Hemmer PA Work Phone: 1(574)[facility]-1400[facility] CareJuoxfoplnc07-72-4343 08:58-6025RtH2% (BldA) [Mass fraction]95 %Franny Hemmer PA Work Phone: 1(897)[facility]9793[facility] CareCtluygtdgs47-08-9021 08:58-0400Systolic blood wigsowvs099 mm[Hg]Franny Hemmer PA Work Phone: 1(834)[facility] [place], [place] [address]Osjsydnilt79-29-8461 08:33-0400Diastolic blood rwlbirod88 mm[Hg][facility]03-27-2025 08:33-0400Systolic blood mm[Hg][facility]02-17-2025 11:40-0500 Body .9 cmKaren Hemmer PA Work Phone: 1(460)[facility] [place], [place] [address]Dwoeeokiqu81-79-9921 11:40-0500Body mass index (BMI) [Ratio]29.89 kg/j6Dtsvu Hemmer PA Work Phone: 1(096)[facility] [place], [place] [address]Kityixbhhm26-08-2849 11:40-0500Body wydgiw81.76 kgKaren Hemmer PA Work Phone: 1(403)[facility] [place], [place] [address]Zbsglfnamq47-91-8282 11:40-0500Diastolic blood erjavqvz73 mm[Hg]Franny Hemmer PA Work Phone: 1(495)[address] [place], [place] [address]Zbivgwdhrt86-91-0460 11:40-0500Heart rate87 /min Franny Hemmer PA Work Phone: 1(284)[facility]-3858[facility] CareXlwowebday56-78-3374 11:40-0500Respiratory rate16 /minKaren Hemmer PA Work Phone: [facility] CareKqvmtebuqx46-52-7073 11:40-9970KcD7% (BldA) [Mass fraction]96 %Franny Mcdermott PA Work Phone: 1(970)[address] [place], [place] 3064802-17-2025 11:40-0500Systolic blood yuzrqqqi631 mm[Hg]Franny Mcdermott PA Work Phone: 1(181)[address] [place], [place] 3064801-23-2025 14:25-0500Diastolic blood betsrxpp37 mm[Hg]Nelly Zee MD Work Phone: 1(596)[address] [place], [place] 8241101-23-2025 14:25-0500 Heart rate75 /minNelly Zee MD Work Phone: 1(819)[address] [place], [place] 8241101-23-2025 14:25-0500 Respiratory rate16 /minNelly Zee MD Work Phone: 1(999)[address] [place], [place] 8241101-23-2025 14:25-0500 SaO2% (BldA) [Mass fraction]96 %Nelly Zee MD Work Phone: 1(878)[address] [place], [place] 8241101-23-2025 14:25-0500 Systolic blood pyteymfd492 mm[Hg]Nelly Zee MD Work Phone: 1(110)[address] [place], [place] 8241101-23-2025 12:12-0500 Body .94 cmRjayant Zee MD Work Phone: 1(362)[address] [place], [place] 8241101-23-2025 12:12-0500 Body aatliy11.03 kgNelly Zee MD Work Phone: 1(395)[address] [place], [place] 8241112-10-2024 10:32-0500 Body andomb826.9 cmFranny Mcdermott PA Work Phone: 1(802)[address] [place], [place] 3064812-10-2024 10:32-0500Body mass index (BMI) [Ratio]29.02 kg/l8Yvpfv Hemmer PA Work Phone: 1(378)[address] [place], [place] 3064812-10-2024 10:32-0500Body .67 kgFranny Hemmer PA Work Phone: 1(206)[facility] [place], [place] [address]Hjlqxrqhhd84-13-6675 10:32-0500Diastolic blood mm[Hg]Franny Hemmer PA Work Phone: noRanken [facility] Specialty HospitalQlpqyzwtgc08-98-5789 10:32-0500Heart rate88 /min Franny Hemmer PA Work Phone: noRanken Jordan [facility] Specialty HospitalTbmqvpoceq08-38-8336 10:32-0500Respiratory rate16 /minKaren Hemmer PA Work Phone: noRanken Jordan [facility] Specialty HospitalCpsouyopqk20-57-0038 10:32-7066HsY7% (BldA) [Mass fraction]96 %Franny Hemmer PA Work Phone: KNRanken Jordan Pediatric Specialty HospitalQzojmffzvd96-22-1289 10:32-0500Systolic blood yasgwzqr530 mm[Hg]Franny Hemmer PA Work Phone: [facility] CareSkvoihnsaf61-64-8190 16:38-0400Body .9 cmKaren Hemmer PA Work Phone: [facility] CareVqdeljkjka54-02-8512 16:38-0400Body mass index (BMI) [Ratio]28 kg/x5Kzlvn Hemmer PA Work Phone: [facility] CareYlqmmjrsdx28-88-1923 16:38-0400Body fkyuzt50.22 kgKaren Hemmer PA Work Phone: noRanken Jordan [facility] Specialty HospitalYbzxkwxbfv92-33-2312 16:38-0400Diastolic blood gydvswkx82 mm[Hg]Franny Hemmer PA Work Phone: [facility] CareUxcjyvwats69-29-4076 16:38-0400Heart rate85 /min Franny Hemmer PA Work Phone: [facility] CareMbqiwxpvxu32-38-1321 16:38-0400Respiratory rate16 /minKaren Hemmer PA Work Phone: noRanken Jordan [facility] Specialty HospitalMvxxcgcqbi41-69-2479 16:38-9897AoK4% (BldA) [Mass fraction]97 %Franny Hemmer PA Work Phone: noRanken Jordan Pediatric Specialty HospitalSmoelbubpq95-01-6491 16:38-0400Systolic blood mpxzfdge661 mm[Hg]Franny Hemmer PA Work Phone: [facility] Healthcare Encounters Encounter DateEncounter TypeCare ProviderFacilityStart: 33-65-3312wcddskeibf Donaldo Monsivais fridaSwift County Benson Health Servicestart: 02-07-2025 End: 11-98-7963gvnohpoopzThbmn M Alda MD Work Phone: [phone]-Fymzkaasx Health GastroStart: 02-07-2025 End: 25-17-8215Uwoiubn encounter procedureJhonatan Pipecarlotta Thomas APRNNovant Health [facility] Work Phone: Start: 01-21-2025 End: 93-19-5479Waaljb Jon GILES Work Phone: [facility] Zaragoza MedinceStart: 01-21-2025 End: 53-15-6195Xsxuoo Jon GILES Work Phone: [facility] Family MedinceStart: 01-21-2025 End: 27-62-9820Piwuvtxgl Result EncounterFranny GILES Work Phone: n[facility] External Department UnsolicitedStart: 01-21-2025 End: 57-13-8515Hnhsdrs encounter procedureFranny GILES Work Phone: [facility]oms Ramiro Zaragoza MedinceComment on above:Medicare annual wellness visit, subsequent (Primary Dx); ACP (advance care planning); Need for vaccination; Difficulty sleeping; EVIE (obstructive sleep apnea); Other chronic pain; Tension headache; CPAP (continuous positive airway pressure) dependence; Moderate persistent asthma without complication (HCC); Benign hypertension ; Dysphagia, unspecified type; Gastroesophageal [...] Seasonal allergies; Stage 3a chronic kidney disease ([facility]-HCC)Start: 01-21-2025 End: 47-11-3741fvcflvvunwDARMO M HEMMERNot AvailableStart: 01-16-2025 End: 91-48-1151Zxbjqxaaz Result EncounterFranny Mcdermott PA Work Phone: [facility] External Department UnsolicitedStart: 01-16-2025 End: 17-90-3227Irnksubjm Result EncounterFranny Thomas Hemmer PA Work Phone: noMS External Department UnsolicitedStart: 12-13-2024 End: 63-53-2122twoymalnsgOrxxb M Alda MD Work Phone: [facility] Work Phone: Start: 12-13-2024 End: 40-15-0773Oakkoqn encounter Manohar [facility] Work Phone: Start: 11-13-2024 End: 25-21-7744Trprji OnlyFranny Thomas Hemgaldino PA Work Phone: [facility] CI FMComment on above:Other chronic pain (Primary Dx)Start: 11-12-2024 End: 26-84-9113Vyskek flowsShyla Thomas Hemmer PA Work Phone: [facility] CI FMStart: 11-12-2024 End: 87-29-3076Lbbven flowsShyla Thomas Hemmer PA Work Phone: [facility] CI FMStart: 11-12-2024 End: 74-47-5758Iybnhqluu Result EncounterFranny Thomas Hemgaldino PA Work Phone: [facility] External Department UnsolicitedStart: 11-12-2024 End: 93-25-1152Pprzxz outpatient visit 25 minutesFranny Mcdermott PA Work Phone: [facility] CI FMComment on above:Stage 3b chronic kidney disease (CMS-HCC) (Primary Dx); Degeneration of intervertebral disc of lumbar region with discogenic back pain; Paresthesia of left leg; Chronic left hip pain; Generalized anxiety disorderStart: 11-12-2024 End: 70-93-0224annbcigipoMKRIT M HEMMERNot AvailableStart: 11-06-2024 End: 06-75-6734Tgcyqtlqv Result EncounterNelly Zee MD Work Phone: [facility] External Department UnsolicitedStart: 11-06-2024 End: 21-35-1640Utgydtsiv Result EncounterNelly Zee MD Work Phone: [facility] External Department UnsolicitedStart: 08-20-2024 End: 64-14-9504Mioobt Jon Mcdermott PA Work Phone: [facility] CI FMStart: 08-20-2024 End: 26-41-4968Fuuqbg Jon Mcdermott PA Work Phone: [facility] CI FMStart: 08-20-2024 End: 77-35-5140Pjwxqr outpatient visit 15 minutesFranny GILES Work Phone: [facility] CI FMComment on above:Lumbar strain, initial encounter (Primary Dx); Rheumatoid arthritis, unspecifiedStart: 08-20-2024 End: 54-53-9471iwgtchyymiZBDOW M HEMMERNot AvailableStart: 07-18-2024 End: 26-80-7110Smtknz outpatient visit 15 minutesDonaldo Mills Work Phone: [facility] ToledoStart: 88-78-1873tzjptphaiaQqwlum Al Shfridaiki [facility] Hospitaltart: 06-14-2024 End: 35-70-4351Nsmammyil Result EncounterFranny GILES Work Phone: [facility] External Department UnsolicitedStart: 06-14-2024 End: 54-06-0336Hurhtcard Result EncounterFranny GILES Work Phone: [facility] External Department UnsolicitedStart: 06-10-2024 End: 70-45-5291Snqeyb Jon Mcdermott PA Work Phone: [facility] CI FMStart: 06-10-2024 End: 30-57-3073Hmpufs Jon GILES Work Phone: [facility] CI FMStart: 06-10-2024 End: 67-05-0197Exkpvb outpatient visit 25 minutesFranny GILES Work Phone: [facility] CI FMComment on above:Near syncope (Primary Dx); Hypokalemia; EVIE (obstructive sleep apnea); CPAP (continuous positive airway pressure) dependence; Benign hypertension (CMS/HCC); Degeneration of intervertebral disc of lumbar region with discogenic back pain; Chronic pain of both knees; Stress reaction; Chronic kidney disease, stage 3a (HCC) (CMS/HCC)Start: 06-10-2024 End: 61-02-6294gnfcuthccvJUWDT M HEMMERNot AvailableStart: 05-29-2024 End: 54-98-9908Cdqeomzpn encounterNelly Zee MD Work Phone: noms CI FMStart: 76-34-3585Lip-patient / Non-visit Nelly Zee MD Work Phone: [facility] Work Phone: Start: 05-16-2024 End: 39-17-1955Apipkwaih to same day surgery seattleNelly Zee MD Work Phone: [facility] Work Phone: Start: 05-16-2024 End: 05-48-7903fhbfrwyebqPjuzo M Alda MD Work Phone: [facility] Work Phone: Start: 04-02-2024 End: 12-25-5205Tmednh flowsShyla GILES Work Phone: [facility] CI FMStart: 04-02-2024 End: 42-54-6798Ewxniy Jon GILES Work Phone: [facility] CI FMStart: 04-02-2024 End: 72-31-2375Jnpyxq outpatient visit 15 minutesFranny GILES Work Phone: [facility] CI FMComment on above:Dysphagia, unspecified type (Primary Dx); Overweight (BMI 25.0-29.9); Gastroesophageal reflux disease without esophagitis; Hoarseness of voice; Chronic coughStart: 04-02-2024 End: 22-45-8120pesrzblvlwHEVQL M HEMGALDINONot AvailableStart: 01-25-2024 End: 70-66-2751Nsoflbvil Result EncounterFranny GILES Work Phone: [facility] External Department UnsolicitedStart: 01-25-2024 End: 82-20-2183Taynaysha Result EncounterFranny Martha Marie GILES Work Phone: NOPA External Department UnsolicitedStart: 01-19-2024 End: 40-99-3793Ubjlju outpatient visit 15 minutesDonaldo Mills Work Phone: [facility] [place]edoStart: 01-16-2024 End: 38-79-7013Zxvswszye Result EncounterFranny GILES Work Phone: NOQR External Department UnsolicitedStart: 01-16-2024 End: 09-37-3386Cfjqvagdw Result EncounterFranny GILES Work Phone: [facility] External Department UnsolicitedStart: 01-16-2024 End: 83-40-0567Kmpbwmovd camposFranny GILES Work Phone: [facility] CI FMStart: 01-10-2024 End: 73-37-2805Qaldbuu encounter procedureFranny GILES Work Phone: [facility] CI FMComment on above:Medicare annual wellness visit, initial (Primary Dx); ACP (advance care [...] problems related to lifestyle; Atherosclerosis of aorta (CMS/HCC)Start: 01-10-2024 End: 03-05-2852Cfeueq Jon GILES Work Phone: [facility] CI FMStart: 01-10-2024 End: 26-79-9332Kmiujp Jon GILES Work Phone: [facility] CI FMStart: 11-13-2023 End: 86-98-9071Bdjqkbaou Result EncounterFelickirstie Dye [employer]ON [employer] Other Phone: noms External Department UnsolicitedStart: 11-13-2023 End: 28-80-1312Cpmvvmcgl Result EncounterFelickirstie Dye [employer]YLIST Other Phone: noms External Department UnsolicitedStart: 10-30-2023 End: 11-19-4253Cidhiomph Result EncounterNelly Zee MD Work Phone: noms External Department UnsolicitedStart: 10-30-2023 End: 52-17-5355Ekeclwjvp Result Alice Zee MD Work Phone: [facility] External Department UnsolicitedStart: 02-15-2023 End: 77-93-7356Yfjzze outpatient visit 15 minutesAhmed M Alkaliby Work Phone: RVShamar SanduskyStart: 02-10-2022 End: 90-07-5748Ipbxdy outpatient visit 15 minutesAhmed M Alkaliby Work Phone: RVShamar SanduskyStart: 10-20-2021 End: 25-62-3784meqgjeslybDL RUGEN ALDAFacility:N8Wpxlz: 07-21-2021 End: 20-86-5941[employer] Work Phone: [facility] [place] AshStart: 03-24-2021 End: 63-42-4987Lihjje [employer] Work Phone: [facility] Louis AshStart: 03-22-2021 End: 06-15-3431gvgxwnafekKF RUGLAURENCE ALDAFacility:D9Fqyet: 02-22-2021 End: 63-60-0796qwthmqtsamSF FRANNY MCDERMOTTFacility:R5Idqmk: 01-22-2021 End: 57-54-6579gryyaogvfhCZ RUGLAURENCE ALDAFacility:W6Kaoao: 11-25-2020 End: 70-93-6672Ifzknsy K Dabbs Work Phone: [facility] SandkrissyStart: 12-04-2019 End: 22-70-4301Sjtlify K Dabbs Work Phone: [facility] SandkrissyStart: 12-12-2018 End: 87-12-2613Flvebpf K Surekha Work Phone: [facility] AmericayStart: 02-05-2018 End: 43-50-4370Pvk K Orgel Work Phone: rvA SandkrissyStart: 11-01-2017 End: 04-43-3464Cermgfz K Surekha Work Phone: [facility]A JulikrissyStart: 10-26-2016 End: 71-33-9507Spkkdpo K Surekha Work Phone: [facility] [place]ayStart: 11-11-2015 End: 67-98-4705Lmqnshu K Surekha Work Phone: [facility] [place]ayStart: 11-19-2014 End: 28-96-1127Asmxyon K Surekha Work Phone: [facility] [place]ayStart: 03-12-2014 End: 93-80-7229Hxqtvq outpatient new 45 minutesWill Irby Work Phone: RVShamar Davenport Procedures DateProcedureProcedure DetailPerforming ClinicianStart: 50-70-2788Gkfviyfmiiva ophthalmic imaging retinaSameer Al ShweikiStart: 71-92-3495Ioldlwlhix exam knee complete 4/more viewsKaren M Hemmer PA Work Phone: Start: 17-35-7462DD KNEE STANDING Isma Thomas Hemmer PA Work Phone: Start: 82-62-9246MWL CBC WITH AUTO DIFFKaren Martha Hemmer PA Work Phone: Start: 69-21-8426MM HIP LT MIN 2VFranny Thomas Hemmer PA Work Phone: Start: 99-17-8656SY TOMOSYNTHESIS SCREENING João Zee MD Work Phone: Start: 43-26-1456SyjxvcbixdkCzbgt Alda MD Work Phone: Start: 07-18-2024 End: 09-75-0499Dhxrqpwjexji ophthalmic imaging retinaSameer Al Shweiki MDStart: 78-05-5861KI KNEE HOLLY 3VFranny Thomas Hemmer PA Work Phone: Start: 09-34-5692XHB BASIC METABOLIC PANELFranny Thomas Hemmer PA Work Phone: Start: 32-18-8723CybclaypoyrcedzjufvrwublrvUkwtv Alda MD Work Phone: Start: 01-11-0501QTS BASIC METABOLIC PANELFranny Thomas Hemmer PA Work Phone: Start: 01-19-2024 End: 59-05-6393Xlrpzcozycua ophthalmic imaging retinaSameer Al Shweiki MDStart: 01-19-2024 End: 88-92-4846Capkqb Photos No Charge BilateralSameer Al Shweiki MDStart: 99-03-3124JLP CBC WITH AUTO DIFFKaren Martha Hemmer PA Work Phone: Start: 79-50-5012UW LUMBAR SPINE WO Mika Dye [employer] Other Phone: Start: 57-20-1841JA TOMOSYNTHESIS SCREENING João Zee MD Work Phone: Start: 81-75-1755TsvaqlayobnOotrb Hemmer PA Work Phone: start: 02-15-2023 End: 83-96-0975Hempittkgirt ophthalmic imaging retinaSzenia Mills MDStart: 81-98-3263Cqiqhsg of total hysterectomyHistory of total hysterectomyFranny Mcdermott PA Work Phone: Start: 07-21-2021 End: 54-80-7185Snzxluv Records CopiedSafara Mills MDStart: 03-24-2021 End: 58-65-7474Sznotth Records CopiedSafara Mills MDStart: 11-25-2020 End: 40-75-8157Tfemausasbfx ophthalmic imaging retinaSzenia Kaurmoises MDStart: 12-04-2019 End: 38-21-1341Rivrxbprzwsm ophthalmic imaging retinaSzenia Al Navmoises MDStart: 12-12-2018 End: 80-56-0720Crhvinrczuzu ophthalmic imaging retinaSzenia Kaurmoises MDStart: 54-71-4880XjqassfywnnRqdea Hemmer PA Work Phone: Start: 02-05-2018 End: 43-49-8539Tcjxjd photography w/interpretation & reportSzenia Mills MD Start: 11-01-2017 End: 91-05-5657Bvduavigkzyc ophthalmic imaging retinaSzenia Monsivais Jax MDStart: 10-26-2016 End: 48-09-5109Jjjgwvzshrqp ophthalmic imaging retinaSzenia Al Jax MDStart: 11-11-2015 End: 32-88-7711Ozfwxkeuulqi ophthalmic imaging retinaSzenia Monsivais Jax MDStart: 11-19-2014 End: 14-97-3838Fnegrw photography w/interpretation & reportSzenia Mills MD Start: 03-12-2014 End: 63-30-0550Dnvxtv photography w/interpretation & reportSzenia Mills MD History of total hysterectomyHistory of total hysterectomyFranny Mcdermott PA Work Phone: History of total hysterectomyHistory of total hysterectomyFranny Thomas Hemmer PA Work Phone: Plan of Treatment DateCare ActivityDetailAuthorStart: 74-52-8139Cbmzepzhu for malignant neoplasm of colonNOMS HealthcareStart: 09-30-2026Medicare Annual Wellness (AWV)Medicare Annual Wellness (AWV)[facility] HealthcareStart: 29-10-7825Llbwnzdav for malignant neoplasm of breastMammogramNOMS HealthcareStart: 66-95-5904Pyvxlmrvubny Vaccine: Pediatrics (0 to 5 Years) and At-Risk Patients (6 to 64 Years) (3 of 3 - PCV20 or PCV21)Pneumococcal Vaccine: Pediatrics (0 to 5 Years) and At-Risk Patients (6 to 64 Years) (3 of 3 - PCV20 or PCV21)[facility] HealthcareStart: 02-27-2025 End: 73-89-8254Yynux metabolic 1998 panel - Serum or PlasmaBasic metabolic panel Lab Routine Hypokalemia Stage 3a chronic kidney disease (CMS-HCC) Expected: (Approximate), Expires: 01/21/2026[facility] Work Phone: Comment on above:Expected: 02/27/2025 (Approximate), Expires: 01/21/2026Start: 47-84-5291Jnshlyr, Victoria 6-8mo DFE W OCT (7)[facility] Work Phone: Start: 01-21-2025 End: 17-27-1182DS Knee - bilateral 4 ViewsXR knee 4+ views bilateral Imaging Routine Chronic pain of both knees Expected: 01/21/2025, Expires: 01/21/2026NOID HealthcareComment on above:Expected: 01/21/2025, Expires: 01/21/2026Start: 01-21-2025 End: 91-63-1513LV Knee - bilateral AP W standingXR knees anteroposterior standing bilateral Imaging Routine Chronic pain of both knees Expected: , Expires: 01/21/2026[facility] HealthcareComment on above:Expected: 01/21/2025, Expires: 01/21/2026Start: 01-21-2025 End: 42-60-2092Zyakszb encounter procedureNOMS [place] [facility] MedinceComment on above:ArrivedStart: 09-18-2025Medicare Annual Wellness (AWV)Medicare Annual Wellness (AWV)[facility] HealthcareStart: 04-45-3315JRLSC-19 Vaccine ( season)COVID-19 Vaccine ( season)[facility] HealthcareStart: 12-23-2024 Influenza vaccinationInfluenza Vaccine (#1)[facility] HealthcareStart: 11-12-2024 End: 31-56-8214Lqkadunkj (Vitamin B12) [Mass/volume] in Serum or PlasmaVitamin B12 Lab Routine Stage 3b chronic kidney disease ([facility]-HCC) Paresthesia of left leg Expected:11/12/2024 (Approximate), Expires: 11/12/2025NOID HealthcareComment on above:Expected: 11/12/2024 (Approximate), Expires: 11/12/2025Start: 11-12-2024 End: 72-61-9888Shwinf [Mass/volume] in Serum or PlasmaFolate Lab Routine Stage 3b chronic kidney disease ([facility]-HCC) Paresthesia of left leg Expected: 11/12/2024 (Approximate), Expires: 11/12/2025NOID HealthcareComment on above:Expected: 11/12/2024 (Approximate), Expires: 11/12/2025Start: 11-12-2024 End: 05-75-3925AW Hip - left 3 ViewsXR hip left 2 or 3 views Imaging Routine Chronic left hip pain Expected: 11/12/2024, Expires: 11/12/2025[facility] Work Phone: Comment on above:Expected: 11/12/2024, Expires: 11/12/2025Start: 11-12-2024 End: 96-62-0574Rjxplsx encounter procedureNOMS CI FMComment on above:Arrived Start: 63-31-6304Tvjxbqzbx for malignant neoplasm of breastMammogramNOMS HealthcareStart: 08-20-2024 End: 32-01-3458Ejgfedn encounter lvzhjvxoo26/29/2025 9:00 AM EDT Office Visit [facility] [address] [facility] [address] [place] [address] Franny Mcdermott PA [address] [facility] [address] [place] [address] ArrivedNOMS CI FMComment on above:ArrivedStart: 06-10-2024 End: 22-60-7578Vydln metabolic 1998 panel - Serum or PlasmaBasic metabolic panel Lab Routine Near syncope Hypokalemia Benign hypertension (CMS/HCC) Expected: 0 06/10/2024 (Approximate), Expires: 06/10/2025[facility] Work Phone: Comment on above:Expected: 06/10/2024 (Approximate), Expires: 06/10/2025Start: 06-10-2024 End: 03-05-2351PT Knee - bilateral 3 ViewsXR knee 3 views bilateral Imaging Routine Chronic pain of both knees Expected: 06/10/2024, Expires:06/10/2025[facility] HealthcareComment on above:Expected: 06/10/2024, Expires: 06/10/2025Start: 06-10-2024 End: 54-92-2871Vgogvaf encounter uevveppys03/17/2025 11:30 AM EST Office Visit [facility] [address] [facility] [address] [place] [address] Franny Mcdermott PA [address] [facility] [address] [place] [address] ArrivedNOID CI FMComment on above:ArrivedStart: 06-06-2024 End: 91-38-8401Gsaxlsy encounter hlmqysban17/13/2025 9:00 AM EST Office Visit [facility] [address] [facility] [address] [place] [address] Franny Mcdermott PA [address] [facility] [address] [place] [address] [facility] CI FMStart: 85-27-6582GhtxzsaynWexner Medical Centertart: 04-02-2024 End: 34-76-1478Nwcksjj encounter wghugllsg39/10/2024 10:30 AM EST Office Visit [facility] [address] [facility] [address] [place] [address] Franny Mcdermott PA [address] [facility] [address] [place] [address] ArrivedNOID CI FMComment on above:ArrivedStart: 01-23-2024 End: 22-74-9943Kapbi metabolic 1998 panel - Serum or PlasmaBasic metabolic panel Lab Routine Hypokalemia Expected: 01/23/2024 (Approximate), Expires: 01/15/2025 [facility] Work Phone: Comment on above:Expected: 01/23/2024 (Approximate), Expires: 01/15/2025Start: 01-10-2024 End: 74-51-4962Ucnysmj encounter iimxmkbzs31/18/2024 4:30 PM EDT Office Visit [facility] [address] [facility] [address] [place] [address] Franny Mcdermott PA [address] [facility] [address] [place] [address] ArrivedS[facility] CI FMComment on above:ArrivedStart: 01-10-2024 End: 88-89-0840BTR W Auto Differential panel - BloodCBC and differential Lab Routine Medicare annual wellness visit, initial Benign hypertension (CMS/HCC) Thrombocytosis Expected: 01/10/2024 (Approximate), Expires: 01/09/2025[facility] Work Phone: Comment on above:Expected: 01/10/2024 (Approximate), Expires: 01/09/2025Start: 01-10-2024 End: 42-87-7184Gcfhzgvjggrzy metabolic 2000 panel - Serum or PlasmaComprehensive metabolic panel Lab Routine Medicare annual wellness visit, initial Benign hypertension (CMS/HCC) Stage 3a chronic kidney disease (HCC) (CMS/HCC) Hypokalemia Expected: 01/10/2024 (Approximate), Expires: 01/09/2025N[facility]S HealthcareComment on above:Expected: 01/10/2024 (Approximate), Expires: 01/09/2025Start: 01-10-2024 End: 11-53-9456THVMOJBLI C AB W/RFL RNS, PCR W/RFL GENOTYPE,LIPAHEPATITIS C AB W/RFL RNS, PCR W/RFL GENOTYPE,LIPA Lab Routine Medicare annual wellness visit, initial Other problems related to lifestyle Expected: 01/10/2024 (Approximate), Expires: 01/09/2025NOID HealthcareComment on above:Expected: 01/10/2024 (Approximate), Expires: 01/09/2025Start: 01-10-2024 End: 41-93-4404Twjuf 1996 panel - Serum or PlasmaLipid panel Lab Routine Medicare annual wellness visit, initial Benign hypertension (CMS/HCC) Elevated LDL cholesterol level (CMS/HCC) Expected: 01/10/2024 (Approximate), Expires: 01/09/2025[facility] HealthcareComment on above:Expected: 01/10/2024 (Approximate), Expires: 01/09/2025Start: 01-10-2024 End: 70-40-1660YCD W/REFLEX TO FT4TSH W/REFLEX TO FT4 Lab Routine Medicare annual wellness visit, initial Acquired hypothyroidism (CMS/HCC) Expected: 01/10/2024 (Approximate), Expires: 01/09/2025[facility] HealthcareComment on above: Expected: 01/10/2024 (Approximate), Expires: 01/09/2025Start: 12-24-2023 Influenza vaccinationInfluenza Vaccine (#1)NOM HealthcareStart: 11-16-2023 Medicare Annual Wellness (AWV)Medicare Annual Wellness (AWV)[facility] Start: 96-03-2553Jkxxghb cessation educationTobacco cessation counselingCVP PhysiciansStart: 44-45-8973GLgJ/Tdap/Td Vaccines (2 - Td or Tdap)DTaP/Tdap/Td Vaccines (2 - Td or Tdap)NOM HealthcareStart: 68-75-6518JPF Vaccines (1 of 1 - Standard series)MMR Vaccines (1 of 1 - Standard series)[facility]OM HealthcareStart: 12-55-9565Uqsbvbxij for malignant neoplasm of colonNOMS HealthcareBasic metabolic 1998 panel - Serum or PlasmaBasic metabolic panel Lab Routine Stage 3b chronic kidney disease (CMS-HCC) Ordered: 11/12/2024[facility] HealthcareComment on above:Ordered: 11/12/2024Patient EducationEsophageal Dilation Esophageal Stricture (DC) Stomach polyps Hiatal hernia - Discharge instructionsKnow your [facility] Work Phone: Immunizations Immunization DateImmunizationNotesCare QwgniikpYzwniidf54-30-3596Imndldcpg, Madin Cynthia Canine Kidney, subunit, trivalent, injectable, contains preservative Franny Hemmer PA Work Phone: [facility] CareTojkdjtxza11-00-8221Jgfjxewj, trivalent, recombinant, injectable influenza vaccine, preservative freeKaren Hemmer PA Work Phone: [facility] CareRxzgjeevdb96-04-9514gabizzpkg virus vaccine, unspecified formulationNelly Zee MD Work Phone: [facility] CareDncmowkmka80-49-0419ULT, recombinant, protein subunit RSVpreF, adjuvant reconstitu, 120mcg/0.5mL, PF (Arexvy)Franny Hemmer PA Work Phone: [facility] CareVpamwkypvy77-06-7461fiogukipm, injectable, quadrivalent, preservative freeKaren Hemmer PA Work Phone: [facility] CareKsasmdzufs06-72-3760rdiekkgxl virus vaccine, unspecified formulationKaren Hemmer PA Work Phone: [facility] CareFagwkwtewu14-81-6266uzkwxh vaccine recombinant Franny Hemmer PA Work Phone: [facility] CareDylfkjqsuj94-12-0935GOJK-AtK-5, UnspecifiedKaren Hemmer PA Work Phone: [facility] CareEbilgxpsvs49-41-6028ncghxgcwz, injectable, quadrivalent, preservative freeKaren Hemmer PA Work Phone: [facility] CareFrtjishfgd21-09-1014vglhsm vaccine recombinant Franny Hemmer PA Work Phone: [facility] CareMzskcxgeqa94-11-2471vohdrytqy, injectable, quadrivalent, preservative freeKaren Hemmer PA Work Phone: [facility] CareGtgnemzpdw79-88-9741pvupewkot, injectable, quadrivalent, contains preservativeKaren Hemmer PA Work Phone: [phone] Industrial ProductsUniversity of Missouri Health CareOmkdvopkma52-68-3422jsrykdbtwbxz polysaccharide vaccine, 23 valentKaren Hemmer PA Work Phone: [phone] Industrial ProductsUniversity of Missouri Health CareOezapxpytb04-43-9684nvmtzew toxoid, reduced diphtheria toxoid, and acellular pertussis vaccine, adsorbedKaren Hemmer PA Work Phone: [phone] ProductsUniversity of Missouri Health CareAodtmefccu34-72-8587ghnvciwsx, injectable, quadrivalent, preservative freeKaren Hemmer PA Work Phone: [phone] Industrial ProductsUniversity of Missouri Health CareTcovaurros43-19-9116ltokbbcc influenza, intradermal, preservative freeKaren Hemmer PA Work Phone: [phone] ProductsUniversity of Missouri Health CareDckryxdlbh37-90-8001yhfobcggs, injectable, quadrivalent, preservative freeKaren Hemmer PA Work Phone: [phone] ProductsUniversity of Missouri Health CareTijvypsoew14-60-2078kjobfqts influenza, intradermal, preservative freeKaren Hemmer PA Work Phone: [phone] [place], [place] [address]Arthakcxeb73-94-9838dztsfwymm, injectable, quadrivalent, preservative freeKaren Hemmer PA Work Phone: [phone] ProductsUniversity of Missouri Health CareRhoelqpjwa03-12-1868ciamcpfmuudr conjugate vaccine, 13 valentKaren Hemmer PA Work Phone: [phone] ProductsUniversity of Missouri Health CareVdoxhjbbmd05-83-7200vokrozttd, seasonal, injectableSameer Al Jax [facility] PhysiciansComment on above:Note: Invalid documented admin date was . ; Source: Other Tdyhixre47-24-9396 pneumococcal polysaccharide vaccine, 23 valentSameer Al Jax [facility] Physicians Comment on above:Note: Invalid documented admin date was . ; Source: Other Provider Payers DatePayer CategoryPayerPolicy [id number] 2024MedicareANTHEM MEDICARE ADVANTAGE ANTHEM MEDICARE ADVANTAGE [id number] 2023-Present [address] [place] [address] [id number] 2024Medicare (Managed Care)ANTHEM MEDICARE ADVANTAGE Member Subscriber Plan / Payer (Effective 2023-Present) Name: Yousuf Amaya V Relation to Subscriber: Self Name: Yousuf Amaya V Payer ID: Not on file Group ID: [id number] Type: Not on file Address: [facility] [id number] [place] [id number] [id number] 2.0.1.784986.3.579.2. [id number] 2.0.1.324812.3.57[id number] 2.0.1.441205.3.57[id number] 2.0.1.345852.3.57[id number] 2.0.1.599857.3.57[id number] 2.16840.1.296015.3.57[id number] 2.16.840.1.288327.3.57[id number] 2.840.1.296233.3.57[id number] 2.840.1.252709.3.57[id number] 2.16.840.1.749529.3.579.[id number] 2.16.840.1.885625.3.57[id number] 2.16.840.1.081827.3.579.2.531 Social History DateTypeDetailFacilityStart: 11-14-2022 End: 96-94-0861Xydmvrx smoking status NHISNever smoked tobaccoNOMS Healthcare Start: 87-51-6120Rzleaov use and exposureSmokeless tobacco non-userNOMS HealthcareStart: 11-02-2023 End: 73-67-1600Uhhveqckr beverage intakeCurrent drinker of alcohol (finding)[facility] HealthcareStart: 01-10-2024 End: 22-05-1595Pkmxqowyx beverage intakeNOMS HealthcareStart: 01-06-2024 End: 27-22-7860K4384 Health LiteracyNOID HealthcareStart: 84-59-3280Yxg often do you need to have someone help you when you read instructions, pamphlets, or other written material from your doctor or pharmacy [SILS]SometimesNOMS HealthcareWithin the last year, have you been afraid of your partner or ex-partner?NoNOMS HealthcareHow often to you have a drink containing alcohol?2-4 times a monthNOMS HealthcareHow many standard drinks containing alcohol do you have on a typical day?3 or 4NOMS HealthcareHow often do you have 6 or more drinks on 1 occasion?NeverNOMS HealthcareDo you feel stress - tense, restless, nervous, or anxious, or unable to sleep at night because yourmind is troubled all the time - these days [OSQ]To some extentNOMS Healthcare(I/We) worried whether (my/our) food would run out before (I/we) got money to buy more.Never trueNOMS HealthcareStart: 10-27-3765Swogisl CommentCaffeine intake: 1-2 cups per dayNOID HealthcareStart: 11-30-9373Ksc assigned at birthNot on fileNOMS HealthcareStart: 81-33-3347FrbKaiojdp sex unknown (finding)[facility] Centertart: 01-25-2222Frk Assigned At BirthFeCleveland Clinic Akron General Lodi Hospitaltart: 79-33-0890Ggmlwup intake (observable entity)Alcohol Use DetailsCVP PhysiciansStart: 40-55-4732Eqbfgw-related behavior (observable entity)Caffeine Use DetailsCVP PhysiciansStart: 01-41-7767Plgnydq use and exposureNon-Smoking Tobacco Use DetailsCVP PhysiciansHow often do you need to have someone help you when you read instructions, pamphlets, or other written material from your doctor or pharmacy [SILS]SometimesNOMS HealthcareSexFemale (finding)[facility] CenterDo you belong to any clubs or organizations such as rastafari groups, unions, fraternal or athletic groups, or school groups?YesNOMS HealthcareAre you now , , , , never or living with a partner?MarriedNOMS HealthcareHow often to you have a drink containing alcohol?Monthly or lessNOMS HealthcareHow many standard drinks containing alcohol do you have on a typical day?1 or 2NOMS HealthcareHow often do you have 6 or more drinks on 1 occasion?Less than monthly [facility] HealthcareHow hard is it for you to pay for the very basics like food, housing, medical care, and heatingSomewhat hardNOMS HealthcareNEGATED: Highlighted rowStart: 30-96-5130Rjwujxm smoking status NHISUnknown if ever smokedCVP PhysiciansNEGATED: Highlighted rowStart: 67-95-3324Bevovyr of tobacco useCurrent non-smokerCVP Physicians Medical Equipment Procedure CodeEquipment CodeEquipment Original TextEquipment IdentifierDates Phacoemulsification of cataract with intraocular lens implantationPosterior- chamber intraocular lens, pseudophakic()[id number] FDAStart: 77-49-1013Fouuchmyyvhlsorbykh of cataract with intraocular lens implantationPosterior-chamber intraocular lens, pseudophakic ()[id number] FDAStart: 11-21-2019 Goals DatePatient GoalDesired Activity/State Functional Status XqwzCfwftiipzfKrennfQkyeitmr52-02-9102Oeznpnb Health Questionnaire 2 item (PHQ- 2) [Reported][facility] CareHemxnoztnn30-03-9220Ovvaa score [AUDIT-C]2 01/15/2025 9:02 AM EDT Mychart, GenericNORanken Jordan Pediatric Specialty HospitalUkkfqwmbzi53-19-9242Fmb often do you have a drink containing alcohol?Monthly or less 01/15/2025 9:02 AM EDT Mychart, Generic Monthly or lessNOMS Hvpllvacjl39-16-5055Egv many standard drinks containing alcohol do you have on a typical day?1 or 2 01/15/2025 9:02 AM EDT Mychart, Generic 1 or 2NOMS Hxuqrfzgue67-92-0253Cwh often do you have 6 or more drinks on 1 occasion?Less than monthly 01/15/2025 9:02 AM EDT Mychart, Generic Less than monthlyUniversity of Missouri Health CareDwdtjpjewu64-66-5667Txdqeba Health Questionnaire 2 item (PHQ-2) [Reported][facility] CareXyqhahuahi00-72-9254Sergavl Health Questionnaire 2 item (PHQ-2) [Reported][facility] CareWegybxqbkh02-15-7702Unbjbkm Health Questionnaire 2 item (PHQ-2) [Reported][facility] Clinical Notes 01-10-2024 to 01-21-2025 Note Date & TbldFzkoWrikrwio52-29-5351 History of Present illness Narrative* CHAN Elizondo - 01/21/2025 8:00 AM EDT Images from the original note were not included. Subjective Patient ID: Yousuf Amaya is a 64 y.o. female who presents for Medicare Annual Wellness Visit Subsequent. C/o bilateral knee pain, ongoing. Trouble with stairs. Some days it is unbearable to even get going. Makes it hard for her to do her walking. Takes Tylenol Arthritis. Does have Voltaren Gel, uses it before bed. 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 Voltaren does help with both. Feb 17 sees the retina specialist in [place] for her 6 month follow up. Medicare Wellness Over the past 2 weeks, how often have you been bothered by any of the following problems? Little interest or pleasure in doing things: Not at all Feeling down, depressed, or hopeless: Not at all Patient Health Questionnaire-2 Score: 0 Over the past 2 weeks, how often have you been bothered by any of the following problems? Trouble falling or staying asleep, or sleeping too much: Not at all Feeling tired or having little energy: Not at all Poor appetite or overeating: Not at all Feeling bad about yourself - or that you are a failure or have let yourself or your family down: Not at all Trouble concentrating on things, such as reading the newspaper or watching television: Not at all Moving or speaking so slowly that other people could have noticed? Or the opposite - being so fidgety or restless that you have been moving around a lot more than usual.: Not at all Thoughts that you would be better off or hurting yourself in some way: Not at all Patient Health Questionnaire-9 Score: 0 Cazares Fall Risk History of Falling, Immediate or Within 3 Months: No Secondary Diagnosis: (Patient-Rptd) (P) No Ambulatory Aid: (Patient-Rptd) (P) Walks without aid/bedrest/nurse assist Intravenous Therapy/Heparin Lock: (Patient-Rptd) (P) No Gait/Transferring: (Patient-Rptd) (P) Normal/bedrest/immobile Mental Status: (Patient-Rptd) (P) Oriented to own ability Cazares Fall Risk Score: (Patient-Rptd) (P) 0 Health Risk Assessment Form Do you need help eating, bathing, using the toilet, dressing, or getting around your home?: No Can you prepare your own meals?: Yes Can you do your own housework without help?: Yes Can you shop for groceries or clothes without help?: Yes Do you exercise for about 20 minutes 3 or more days a week?: No How confident are you that you can control and manage most of your health problems?: Very confident Can you mange your money, credit cards and accounts, pay bills and taxes?: Yes Vision Screening: Yes, no gross abnormalities Hearing Screening: Yes, no gross abnormalities Cognitive Screening Self Assessment: No overt cognitive deficiency is apparent by direct observation Three Word Registration: Village, Kitchen, Baby Clock Drawing: Normal Clock - 2 Three Word Recall: All 3 words correct - 3 Total Score (0-5 Points): 5 Pain Assessment Pain Score: 5 - Moderate pain Advance Care Planning Do you have a living will?: No (living will paperwork given to patient) Do you have a medical power of commercial real estate attorney?: No Current Outpatient Medications on File Prior to Visit Medication Sig Dispense Refill omeprazole (PriLOSEC) [address] capsule Take 40 mg by mouth in the morning and 40 mg before bedtime. albuterol HFA (Ventolin HFA) 90 mcg/act inhaler Inhale 2 puffs every 4 (four) hours if needed for wheezing or shortness of breath 18 g 5 busPIRone (Buspar) 5 MG tablet Take 1 tablet (5 mg) by mouth 2 (two) times a day as needed (Anxiety) 60 tablet 2 hydroCHLOROthiazide (HYDRODiuril) 25 MG tablet Take 1 tablet (25 mg) by mouth Daily 100 tablet 3 levothyroxine (Synthroid, Levoxyl) 50 MCG tablet Take 1 tablet (50 mcg) by mouth in the morning. Take on an empty stomach. 90 tablet 0 montelukast (Singulair) 10 MG tablet Take 1 tablet (10 mg) by mouth at bedtime 100 tablet 3 Multiple Vitamin (multivitamin) tablet Take 1 tablet by mouth Daily potassium chloride CR (K-Tab) 20 MEQ ER tablet Take 1 tablet (20 mEq) by mouth in the morning and 1tablet (20 mEq) before bedtime. Do not crush, chew, or split.. rosuvastatin (Crestor) 10 MG tablet Take 1 tablet (10 mg) by mouth 1 (one) time each day at the same time 100 tablet 3 [DISCONTINUED] cyclobenzaprine (Flexeril) 10 MG tablet Take 10 mg by mouth 3 (three) times a day asneeded for muscle spasms [DISCONTINUED] DULoxetine (Cymbalta) [address] capsule Take 1 capsule (30 mg) by mouth Daily Do not crush or chew. 30 capsule 2 [DISCONTINUED] levothyroxine (Synthroid, Levoxyl) 25 MCG tablet Take 1 tablet (25 mcg) by mouth in the morning. Take on an empty stomach.. 100 tablet 3 [DISCONTINUED] levothyroxine (Synthroid, Levoxyl) 50 MCG tablet Take 1 tablet (50 mcg) by mouth in the morning. Take on an empty stomach. 90 tablet 0 [DISCONTINUED] pantoprazole (ProtoNix) 40 MG EC tablet TAKE 1 tablet Orally daily 100 tablet 3 No current facility-administered medications on file prior to visit. I have reviewed and reconciled the history and medication list with the patient today. Allergies Allergen Reactions Duloxetine Social History Tobacco Use Smoking status: Never [...] ARTHROSCOPY Right 2017 Stepanic Visit Vitals BP 112/84 Pulse 91 Resp 16 Ht 5' 1 Wt 155 lb 12.8 oz SpO2 97% BMI 29.44 kg/m Smoking Status Never BSA 1.74 m [...] for difficulty urinating, dysuria and frequency. Musculoskeletal: Positive for arthralgias. Negative for back pain. Skin: Negative for rash. Neurological: Negative for dizziness and numbness. Psychiatric/Behavioral: Negative for sleep disturbance. The patient is not nervous/anxious. Objective Physical Exam Constitutional: General: She is [...] are equal, round, and reactive to light. Cardiovascular: Rate and Rhythm: Normal rate and [...] of motion and neck supple. No tenderness. Right knee: Crepitus present. Normal range of motion. Left knee: Crepitus present. Normal range of motion. Skin: General: Skin is warm and dry. [...] Content: Thought content normal. Judgment: Judgment normal. Assessment & Plan 1. Medicare annual wellness visit, subsequent (Primary) Reviewed all relevant preventative screenings with the patient in detail. Medicare Wellness form completed and will be scanned into patient's chart. All needed testing was ordered. Will continue withyearly Medicare Wellness exams. 2. ACP (advance care planning) Patient agreed [...] a living will and durable power of commercial real estate attorney for healthcare. We discussed telling garcia people about their advance directives such as close family members, and requested a copy to scan into the patient's EHR. An advance directive packet was offered to the patient. 3. Need for vaccination Patient received Influenza vaccine today. She tolerated this well. 4. Difficulty sleeping This is a chronic medical condition that is stable since last assessment. No specific treatment at this time. 5. EVIE (obstructive sleep apnea) Patient is compliant with CPAP usage and perceives benefit from treatment. Treatment has been effective in controlling the patient's symptoms of Sleep Apnea. Will continue to monitor with routine follow up appointments. 6. Other chronic pain This is a chronic medical condition that is stable since last assessment. No changes in treatment are suggested at this time. Continue Tylenol Arthritis Strength prn. 7. Tension headache This is a chronic medical condition that is stable since last assessment. No changes in treatment are suggested at this time. OTC prn. 8. CPAP (continuous positive airway pressure) dependence Patient is compliant with CPAP usage and perceives benefit from treatment. Treatment has been effective in controlling the patient's symptoms of Sleep Apnea. Will continue to monitor with routine follow up appointments. 9. Moderate persistent asthma without complication (HCC) This is a chronic medical condition that is stable since last assessment. No changes in treatment are suggested at this time. Continue Albuterol prn, Montelukast daily. 10. Benign hypertension Patient's blood pressure is currently stable. Continue with current medications and I will continueto monitor. Goal BP remains less than 130/80. 11. Dysphagia, unspecified type This is a chronic medical condition that is stable since last assessment. No changes in treatment are suggested at this time. Continue Omeprazole as prescribed. 12. Gastroesophageal reflux disease without esophagitis This is a chronic medical condition that is stable since last assessment. No changes in treatment are suggested at this time. Continue Omeprazole as prescribed. 13. Ankylosis, right shoulder This is a chronic medical condition that is stable since last assessment. No changes in treatment are suggested at this time. Continue Tylenol Arthritis Strength as needed. 14. Chronic pain of both knees X-rays ordered for further evaluation at this time. Continue Tylenol Arthritis Strength and Voltaren Gel as needed. Encouraged her to increase using the Gel to at least twice a day on her knees. - XR knees anteroposterior standing bilateral; Future - XR knee 4+ views bilateral; Future 15. Degeneration of intervertebral disc of lumbar region with discogenic back pain This is a chronic medical condition that is stable since last assessment. No changes in treatment are suggested at this time. Continue Tylenol Arthritis Strength as needed. 16. Inflammation of right sacroiliac joint This is a chronic medical condition that is stable since last assessment. No changes in treatment are suggested at this time. Continue Tylenol Arthritis Strength as needed. 17. Acquired hypothyroidism Currently on 50 mcg of the Levothyroxine. Will recheck TSH in February. Will notify pt of the results once received. 18. Overweight (BMI 25.0-29.9) Encouraged portion control, decrease simple sugars and carbohydrates, gradually increase activity level. Aim for gradual steady weight loss. 19. Thrombocytosis This is a chronic medical condition that is stable since last assessment. Will continue to monitor with routine labs. 20. Elevated LDL cholesterol level This is a chronic medical condition that is stable since last assessment. Continue Rosuvastatin as prescribed. Will continue to monitor with routine labs. 21. Generalized anxiety disorder This is a chronic medical condition that is stable since last assessment. No changes in treatment are suggested at this time. Continue Buspar as prescribed. 22. History of total hysterectomy Pt is s/p Hysterectomy. Denies concerns at this time. 23. Hypokalemia This is a chronic medical condition that is stable since last assessment. Continue Potassium supplement as prescribed. Will continue to monitor with routine labs. - Basic metabolic panel; Future 24. Retinitis pigmentosa The patient is seeing a emergency medical technician basic for this condition, treatment is deferred to that specialist. Correspondence from that specialist and any available testing were reviewed during today's visit. 25. Seasonal allergies This is a chronic medical condition that is stable since last assessment. No changes in treatment are suggested at this time. Continue Montelukast as prescribed. 26. Stage 3a chronic kidney disease ([facility]-HCC) Patient is taking the Renafood supplement. She is staying hydrated. Will recheck her kidney function in February. - Basic metabolic panel; Future Follow up in about 6 months (around 07/21/2025) for Hypertension. Franny Mcdermott MSADWOA, OCTAVIOC documented in this [facility]08-22-2025 Evaluation note* Diagnosis Onset Date Resolution Status Admit Date Barretts esophagus acuteAugust 2024 1:04pmEsophageal strictureacuteAugust 2024 1:04pm GERD (gastroesophageal reflux disease)acuteAugust 2024 1:04pmHiatal hernia acuteAugust 2024 1:04pmDysphagianoneactiveAugust 2024 1:04pmGERD (gastroesophageal reflux disease)acuteOctober 2024 1:24pm [facility] Work Phone: 1(678) 463-651207-23-2025 History of Present illness Narrative* CHAN Elizondo - 11/13/2024 9:29 AM EDT Low dose Cymbalta sent in for pt. documented in this [facility]07-22-2025 History of Present illness Narrative* CHAN Elizondo - 11/12/2024 8:00 AM EDT Images from the original note were not included. HPI Chronic Kidney Disease Additional comments: She would like a referral to a call center receptionist d/t her kidney disease. Denies having any [...] has nurses that recommended she see a Adjunct Nursing Faculty. Those same nurses also told her sheneeds an updated Colonoscopy, though pt did not [...] mEq) by mouth in the morning and 1tablet (20 mEq) before bedtime. Do not crush, [...] this visit: Stage 3b chronic kidney disease ([facility]-HCC) - Basic metabolic panel - Vitamin B12; [...] labs that she will have done at [facility] for further evaluation of her [...] Will obtain x-rays for further evaluation at thistime. Will notify pt of the results once received. Generalized anxiety disorder Continue Buspar as prescribed. Advised pt that her Colonoscopy in 2018 was normal. Next colonoscopy due 2028. Advised pt that Mammograms are recommended through age 74 according to USPSTF guidelines. Follow up in about 2 months (around 01/13/2025) for Medicare Wellness Visit. documented in this encounterUniversity of Missouri Health [id number] History of Present illness Narrative* CHAN Elizondo - 08/20/2024 9:00 AM EDT Images from the original note were not included. Subjective Patient ID: Yousuf Amaya is a 64 y.o. female who presents for [facility] ER follow up. Yousuf is present today for [facility] ER follow up. She was seen at the ER on 08/03/24, Dx. Low back pain, she received a toradol injection and scripts for Tylenol 3, Ibuprofen 800 mg and Robaxin. She didnot take any of the meds that were prescribed. She already had muscle relaxers at home and she has stage 3 kidney disease so did not take the Ibuprofen and she does not like the way the codeine makesher feel so did not get that script. [...] mEq) by mouth in the morning and 1tablet (20 mEq) before bedtime. Do not crush, [...] (Right lower lumbar paraspinous) and bony tenderness (Lowerlumbar and sacrum) present. Decreased range of motion [...] the patient. ER discharge meds were reviewed. Anychanges to plan are as noted. Follow up if symptoms worsen or fail to improve. 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 Side: Bilateral. Status: moderate, chronic, stable assessment Pseudophakia impression Pseudophakia: Z96.1. Bilateral. Condition: established, stable [facility] Work Phone: 1(185) 531-249803-27-2025 History of Present illness Narrative* Encounter Date [...] the right and left eyes. Patient states Pigmentary retinal dystrophy The 61 year old [...] for evaluation of RP in both eyes. [facility] Work Phone: [phone] Instructions* Date Instruction Additional Infor linnea Impression/Plan Related to Pigme ntary retinal dystrophy Impression/Plan Related to Pseud ophakia Impression/Plan Related to Pseud ophakia Impression/Plan Related to Pigme ntary retinal dystrophy Oct- Impression/Plan Related to Pseud ophakia Oct- Impression/Plan Related to Other vitreous opacities, bilateral Oct- Impression/Plan Related to Pigme ntary retinal dystrophy Oct- Impression/Plan Related to Other vitreous opacities, bilateral Oct- Impression/Plan Related to Pigme ntary retinal dystrophy Return in 1 year eduardo Irby MD for follow up and OCT Related to Pigmentary retinal dystrophy Impression/Plan Related to Gener alized contraction of visual field, bilateral Impression/Plan Related to Pigme ntary retinal dystrophy Impression/Plan Related to Pseud ophakia Impression/Plan Related to Other vitreous opacities, bilateral Return in 1 year eduardo Irby MD for follow up exam and OCT. Related to Pigmentary retinal dystrophy Impression/Plan Related to Other vitreous opacities, bilateral Impression/Plan Related to Gener alized contraction of visual field, bilateral Impression/Plan Related to Pigme ntary retinal dystrophy Impression/Plan Related to Pseud ophakia Return in 1 year wit h Will Irby MD for follow up and [...] field, bilateral Return in 1 year wit h [...] Return in 1 year wit darren Irby for follow up exam and OCT. [...] bilateral - Return in 1 year w ith [...] Patient has been seen previously at the [facility]; she stated they told her they would [...] up. Appropriate follow up with primary eye senior care assistant was recommended. Related to PVD (Vitreous degeneration) [...] future. Offered patient a referral to the [facility]/Dr. Robles (who specializes in inherited retinal diseases) [...] follow up exam. Related to Retinitis pigmentosa [facility] Work Phone: 1([phone]) 771-620402-17-2025 History of Present illness Narrative* CHAN Elizondo [...] for Medication Follow Up. documented in this encounterUniversity of Missouri Health [id number] Telephone encounter Note* Telephone Encounter - Emilia Flroes LPN - 05/29/2024 8:45 AM EST Sent. [facility] [id number] Miscellaneous Notes* Telephone Encounter - Emilia Flores LPN - 05/29/2024 8:45 AM EST Sent. * Telephone Encounter - Madie Monroy - 05/29/2024 8:28 AM EST potassium chloride CR (K-Tab) 20 MEQ ER tablet Patient is wondering [facility] [place]. She said she struggles with low potassium sometimes and she thinks that is what is happening now to her. She feels light-headed, dizzy, like she might pass out. documented in this encounterUniversity of Missouri Health CareBhcvlxckbr09-28-6128 Telephone encounter Note* Telephone Encounter - Madie Monroy - 05/29/2024 8:28 AM EST potassium chloride CR (K-Tab) 20 MEQ ER tablet Patient is wondering if we [facility] [place]. She said she struggles with low potassium sometimes and she thinks that is what is happening now to her. She feels light-headed, dizzy, like she might pass out. [facility] Health [id number] [place] [address] Gastroenterology H&P Signed Patient: Yousuf Amaya V MR#: [id number] : 1960 Acct:[id number] Age/Sex: 63 / F Adm Date: 5 Loc: Room: Type: [facility] Attending Dr: Sivakumar Juárez MD Copies [...] Juárez MD 05/16/241325 Signed By: 05/16/24 1326 [facility]01-23-2025 [place] [address] EGD Procedure Note Signed Patient: Yousuf Amaya V MR#: [id number] : 1960 Acct:[id number] Age/Sex: 63 / F Adm Date: 5 Loc: Room: Type: [facility] Attending Dr: Sivakumar Juárez MD Copies [...] Juárez MD 05/16/24 1326 Signed By: 05/16/24 9225 [facility]12-10-2024 History of Present illness Narrative [...] for Medicare Wellness Visit. documented in this encounterUniversity of Missouri Health [id number] Telephone encounter Note* Telephone Encounter - CHAN Elizondo - 01/16/2024 10:37 AM EDT Called and informed pt that her potassium was very low. Needs to restart the supplement today. She voices understanding, updated Rx sent in for pt. Advised pt will need to recheck in one week. Lab order will be sent to [facility]. [facility] Health [id number] Miscellaneous Notes* Telephone Encounter - CHAN Elizondo - 01/16/2024 10:37 AM EDT Called and informed pt that her potassium was very low. Needs to restart the supplement today. She voices understanding, updated Rx sent in for pt. Advised pt will need to recheck in one week. Lab order will be sent to [facility]. * Telephone Encounter - Rosa Warren MA - 01/16/2024 10:12 AM EDT Critical lab potassium is 2.8 from [facility] documented in this encounterUniversity of Missouri Health [id number] Telephone encounter Note* Telephone Encounter - Rosa Warren MA - 01/16/2024 10:12 AM EDT Critical lab potassium is 2.8 from [facility] [place] [facility] [id number] History of Present illness Narrative* CHAN Elizondo [...] Do you have a medical power of commercial real estate attorney?: (P) No Objective : BP 116/72 [...] a living will and durable power of commercial real estate attorney for healthcare. We discussed telling garcia [...] time. 8. Moderate persistent asthma without complication ([facility]/HCC) This is a chronic medical condition that is stable since last assessment. No changes in treatment are suggested at this time. 9. Benign hypertension ([facility]/HCC) Patient's blood pressure is currently well controlled. [...] 12. Stage 3a chronic kidney disease (HCC) ([facility]/HCC) This is a chronic medical condition that is stable since last assessment. No changes in treatment are suggested at this time. Will continue to monitor with routine labs. - Comprehensive metabolic panel 13. Ankylosis, right shoulder This is a chronic medical condition that is stable since last assessment. No changes in treatment are suggested at this time. 14. Inflammation of right sacroiliac joint ([facility]/HCC) The patient is seeing a emergency medical technician basic for this condition, treatment is deferred to that specialist. Correspondence from that specialist and any available testing were reviewed during today's visit. 15. Acquired hypothyroidism ([facility]/HCC) This is a chronic medical condition that [...] and differential 18. Elevated LDL cholesterol level ([facility]/HCC) This is a chronic medical condition that is stable since last assessment. No changes in treatment are suggested at this time. Will continue to monitor with routine labs. - Lipid panel 19. Generalized anxiety disorder ([facility]/HCC) This is a chronic medical condition that [...] Retinitis pigmentosa The patient is seeing a emergency medical technician basic for this condition, treatment is deferred to [...] on January 10, 2024 documented in this [facility] HealthcareConsult note* Clinical Note Date No Information [facility] Work Phone: Discharge summary* Clinical Note Date No Information [facility] Work Phone: Evaluation note* Diagnosis Dysphagia, unspecified type- Primary Overweight (BMI 25.0-29.9) Overweight Gastroesophageal reflux disease without esophagitis Esophageal reflux Hoarseness of voice Dysphonia Chronic cough Cough documented in this encounter [facility] HealthcareEvaluation note* Diagnosis Medicare annual wellness [...] of right sacroiliac joint (CMS/HCC) Acquired hypothyroidism (CMS/HCC) Unspecified hypothyroidism Overweight (BMI 25.0-29.9) Overweight Thrombocytosis Essential thrombocythemia Elevated LDL cholesterol level (CMS/HCC) Generalized anxiety disorder ([facility]/HCC) Generalized anxiety disorder History of total hysterectomy Hypokalemia Hypopotassemia Retinitis pigmentosa Pigmentary retinal dystrophy Seasonal allergies Allergic rhinitis, cause unspecified Other problems related to lifestyle Atherosclerosis of aorta ([facility]) Atherosclerosis of aorta documented in this encounter [facility] HealthcareEvaluation note* Diagnosis Hypokalemia- Primary Hypopotassemia documented in this encounter [facility] HealthcareEvaluation noteNo assessment information availableFirelands Regional Medical Center Work Phone: Evaluation note* Diagnosis Hypokalemia Hypopotassemia documented in this encounter [facility] HealthcareEvaluation note* Diagnosis Near syncope- Primary Hypokalemia Hypopotassemia EVIE (obstructive sleep apnea) Obstructive sleep apnea (adult) (pediatric) CPAP (continuous positive airway pressure) dependence Dependence on other enabling machine Benign hypertension ([facility]/HCC) Essential hypertension, benign Degeneration of intervertebral disc of lumbar region with discogenic back pain Chronic pain of both knees Stress reaction Unspecified acute reaction to stress Chronic kidney disease, stage 3a (HCC) (CMS/[facility]) documented in this encounter [facility] HealthcareEvaluation note* Diagnosis Lumbar strain, initial encounter- Primary Rheumatoid arthritis, unspecified documented in this encounter [facility] HealthcareEvaluation note* Diagnosis Stage 3b chronic kidney disease ([facility])- Primary Degeneration of intervertebral disc of lumbar region with discogenic back pain Paresthesia of left leg Disturbance of skin sensation Chronic left hip pain Generalized anxiety disorder Generalized anxiety disorder documented in this encounter [facility] HealthcareEvaluation note* Diagnosis Other chronic pain- Primary documented in this encounter [facility] HealthcareEvaluation note* Diagnosis Onset Date Resolution Status Admit Date Barretts esophagus acuteAugust 2024 1:04pmGERD (gastroesophageal reflux disease)acuteAugust 2024 1:04pmDysphagianoneactiveAugust 2024 1:04pm [facility] Work Phone: Evaluation note* Diagnosis Medicare annual wellness visit, subsequent- Primary ACP (advance care planning) Other specified counseling Need for vaccination Need for prophylactic vaccination and inoculation against unspecified single disease Difficulty sleeping Unspecified sleep disturbance EVIE (obstructive sleep apnea) Obstructive sleep apnea (adult) (pediatric) Other chronic pain Tension headache CPAP (continuous positive airway pressure) dependence Dependence on other enabling machine Moderate persistent asthma without complication (HCC) Benign hypertension Essential hypertension, benign Dysphagia, unspecified type Gastroesophageal reflux disease without esophagitis Esophageal reflux Ankylosis, right shoulder Chronic pain of both knees Degeneration of intervertebral disc of lumbar region with discogenic back pain Inflammation of right sacroiliac joint Acquired hypothyroidism Unspecified hypothyroidism Overweight (BMI 25.0-29.9) Overweight Thrombocytosis Essential thrombocythemia Elevated LDL cholesterol level Generalized anxiety disorder History of total hysterectomy Hypokalemia Hypopotassemia Retinitis pigmentosa Pigmentary retinal dystrophy Seasonal allergies Allergic rhinitis, cause unspecified Stage 3a chronic kidney disease (CMS-HCC) documented in this encounter [facility] HealthcareHistory and physical note Author Sivakumar Juárez [facility] CenterNote Date/TimeJanuary 2024 2:47pm [place] [address] Gastroenterology H&P Signed Patient: Yousuf Amaya V MR#: [id number] : 1960 Acct:[id number] Age/Sex: 63 / F Adm Date: 5 Loc: Room: Type: [facility] Attending Dr: Sivakumar Juárez MD Copies [...] By: Sivakumar Juárez MD 05/16/241325 Signed By: <Electronically signed by Sivakumar Juárez MD> 05/16/24 1326 [facility] Work Phone: History and physical note* Clinical Note Date No Information [facility] Work Phone: Progress note* Clinical Note Date No Information [facility] Work Phone: Reason for referral (narrative)* Reason For Referral No Information [facility] Work Phone: Reason for referral (narrative)No reason for referral information availableSt. [facility] Work Phone: Summary Purpose Family History Relationship Condition Age at Onset Recorded Date/T anil father Unknown Motor vehicle accidentUnknownmotherHypertensionUnknownDeceasedUnknownDisorder of kidneyUnknown Family Member Type Diagnosis Age At Onset Problem (finding)Family history of blindnessProblem (finding)Family history of cataractProblem (finding)Family history of hypertensionProblemFamily history of retinal pigmentosa-mother/grandmother Advance Directives Advance Directive Response [...] 1:04pm Dysphagia December 13, 2024 1: 04pm Chief Complaint Admit Date 6 month follow up/GERD/BARRETTs November 232024 1:04pm 8 w f/u dyspepsia/GERD/Esophageal strict ure February 07, 2025 1:24pm Reason for Visit Admit Date Barretts esophagus December 13, 2024 1: 04pm Esophageal stricture December 13, 2024 1 :04pm GERD (gastroesophageal reflux disease) A ugust 2024 1:04pm Hiatal hernia December 13, 2024 1: 04pm Dysphagia December 13, 2024 1: 04pm GERD (gastroesophageal reflux disease) O ctober 2024 1:24pm Additional Source Comments INFORMATION SOURCE (unrecogn ized section and content) DATE CREATED AUTHOR 09/10/2021 [facility] Child Attendant DATE CREATED AUTHOR AUTHOR'S ORGANIZ ATION 10/23/2021 [facility] DATE CREATED AUTHOR AUTHOR'S ORGANIZ ATION 08/22/2024 [facility] DATE CREATED AUTHOR AUTHOR'S ORGANIZ ATION 01/26/2025 [facility] EPIC DATE CREATED AUTHOR AUTHOR'S ORGANIZ ATION 02/19/2025 [facility] Care Teams (unrecognized sec tion and content) Team MemberRelationshipSpecialtyStart DateEnd Date Nelly Zee MD [address] [place] [address] PCP - GeneralFamily Medicine11/15/22 Karolyn Rangel, SALON STYLIST [address] [place] [address] PCP - Selene IVORY10/23/23Team MemberRelationshipSpecialtyStart DateEnd Date Nelly Zee MD [address] [place] [address] PCP - GeneralFamily Medicine11/15/22 Dorita Dye NP [address], [address] [place] [phone] PCP - [place]12/24/23Team MemberRelationshipSpecialtyStart DateEnd Date Nelly Zee MD [address] [facility] 110 [place] [address] PCP - GeneralFamily Medicine11/15/22 Dorita Dye, SALON STYLIST [address] [facility] , [address] [place] [phone] PCP - [place]12/24/23Team MemberRelationshipSpecialtyStart DateEnd Date Nelly Zee MD [address] [facility] [address] [place] [address] [facility] - [facility] [place]11/15/22 Karolyn Rangel, SALON STYLIST [address] [facility] [address] [place] [address] PCP - [place]10/23/23Team MemberRelationshipSpecialtyStart DateEnd Date Nelly Zee MD [address] [facility] [address] [place] [address] PCP - [facility]11/15/22 Karolyn Rangle, SALON STYLIST [address] [facility] [address] [place] [address] PCP - [place]10/23/23Team MemberRelationshipSpecialtyStart DateEnd Date Nelly Zee MD [address] [facility] [address] [place] [address] PCP - [facility]11/15/22 Karolyn Rangel, SALON STYLIST [address] [facility] [address] [place] [address] PCP - [place]10/23/23Team MemberRelationshipSpecialtyStart DateEnd Date Nelly Zee MD [address] [place] [address] PCP - GeneralFamily Medicine11/15/22 Karolyn Rangel NP [address] [place] [address] PCP - Selene IVORY10/23/23 Team Status: Active Member Role Status Dates Nelly Zee MD Primary Care Provider Active Team Status: Inactive Member Role Status Dates Nelly Zee MD Primary Care Provider Active S tart: May 16, 2024 End: May 16, 2024Imad Asaad , MDAttending ProviderActiveStart: May 16, 2024 End: May 16, 2024 Team Status: Active Member Role Status Dates Nelly Zee MD Primary Care Provider Active S tart: May 16, 2024 Imad Asaad , MDAttending Provider, Other ProviderActiveStart: May 16, 2024 Team MemberRelationshipSpecialtyStart DateEnd Date Nelly Zee MD [address] [place] [address] PCP - GeneralFamily Medicine11/15/22MonDiegoBina LPN [address] [place] [address] Licensed Practical NurseFamily Zwbldmqo37/18/24Team MemberRelationshipSpecialty Start DateEnd Date Nelly Zee MD [address] [place] [address] PCP - GeneralFamily Medicine11/15/22 Rosa Edwards, JEREMY Licensed Practical NurseFamily Medicine05/31/24Team MemberRelationshipSpecialty Start DateEnd Date Nelly Zee MD [address] [place] [address] PCP - GeneralFamily Medicine11/15/22 Rosa Edwards, RN Licensed Practical NurseFamily Medicine05/31/24Team MemberRelationshipSpecialty Start DateEnd Date Nelly Zee MD [address] [facility] [address] [place] [address] PCP - GeneralFamily Medicine11/15/22 Rosa Edwards, JEREMY Licensed Practical NurseFamily Medicine05/31/24 Name Effective Dates (start - stop) Status Members No Information Team MemberRelationshipSpecialtyStart DateEnd Date Nelly Zee MD [address] [facility] [address] [place] [address] PCP - GeneralFamily Medicine11/15/22 Humera Fontenot LPN 07/12/24Team MemberRelationshipSpecialtyStart DateEnd Date Nelly Zee MD [address] [facility] [address] [place] [address] PCP - GeneralFamily Medicine11/15/22 Humera Fontenot LPN 07/12/24Team MemberRelationshipSpecialtyStart DateEnd Date Nelly Zee MD [address] [place] [address] PCP - GeneralFamily Medicine11/15/22 Humera Fontenot LPN [address] [place] [address] 07/12/24Team MemberRelationshipSpecialtyStart DateEnd Date Nelly Zee MD [address] [place] [address] PCP - Generalmily Medicine11/15/22 Humera Fontenot LPN [address] [place] [address] 07/12/24Team MemberRelationshipSpecialtyStart DateEnd Date Nelly Zee MD [address] [place] [address] [facility] - [facility]11/15/22 Humera Fontenot LPN [address] [place] [address] 07/12/24Team MemberRelationshipSpecialtyStart DateEnd Date Nelly Zee MD [address] [place] [address] [facility] - [facility] Medicine11/15/22 Humera Fontenot LPN [address] [place] [address] 07/12/24 Team Status: Inactive Member Role Status Nelly Zee MD Primary Care Provider Active S tart: December 13, 2024 End: December 13, 2024Enio Molina ProviderActiveStart: December 13, 2024 End: December 13, 2024Team MemberRelationshipSpecialtyStart DateEnd Date Nelly Zee MD [address] [place] [address] [facility] - [facility] Medicine11/15/22 Humera Fontenot LPN [address] [place] [address] 07/12/24Team MemberRelationshipSpecialtyStart DateEnd Date Nelly Zee MD [address] [facility] [address] [place] [address] PCP - GeneralFamily Medicine11/15/22 Humera Fontenot LPN [address] [facility] 110 [place] [address] 07/12/24 Team Status: Active Member Role/Relationship Status Dates Nelly Zee MD Primary Care Provider Active Team Status: Inactive Member Role/Relationship Status Dates Nelly Zee MD Primary Care Provider Active S tart: December 13, 2024 End: December 13, 2024Enio Molina ProviderActiveStart: December 13, 2024 End: December 13, 2024 Team Status: Inactive Member Role/Relationship Status Dates Nelly Zee MD Primary Care Provider Active S tart: February 07, 2025 End: February 07, 2025RyEnio Chu ProviderActiveStart: February 07, 2025 End: February 07, 2025Team MemberRelationshipSpecialtyStart DateEnd Date Nelly Zee MD 112 [facility] 110 [place] [address] PCP - Generalmily Medicine11/15/22 Karolyn Rangel SALON STYLIST [address] [facility] [address] [place] [address] PCP - [place] Dorita Dye, SALON STYLIST PCP - [place]12/23/2410 Naomie Johnson, JEREMY [address] [place] [address] Registered NurseFamily Wimeondt57/12/Monday, TESS Curran [address] [place] [address] Licensed Practical NurseFamily Obyrvicf88/18/242 Rosa Edwards, RN [address] [place] [address] Licensed Practical NurseFamily Medicine Humera Fontenot LPN [address] [place] [address] 07/12/24 Reason for Visit (unrecogniz ed section and content) ReasonCommentsPotassium CheckReasonCommentsChronic Kidney DiseaseShe would like a referral to a call center receptionist d/t her kidney disease. Denies having any problems. ReasonCommentsMedicare Annual Wellness Visit Subsequent Goals (unrecognized section and content) Goals may [...] BE BASED ON THE PRIMARY CLINICAL RECORDS. [facility] [facility]. provides no warranty or guarantee of the accuracy or completeness of information in this document.
[2025-02-26 16:39] LABS: Hematocrit 38.9 % (36.0-48.0); Hemoglobin 12.9 g/dL (12.0-16.0); Immature Granulocytes Abs Auto 0.02 10^3/uL (0.00-0.03); Immature Granulocytes Pct Auto 0.2 % (0.0-0.5); Lymphocytes Absolute Auto 3.3 10^3/uL (1.2-3.8); Mean Corpuscular HGB Conc 33.2 g/dL (29.9-35.2); Mean Corpuscular Hemoglobin 30.4 pg (26.7-34.0); Mean Corpuscular Volume 91.5 fL (81.0-99.0); Platelet Count 377 10^3/uL (150-450); Red Blood Count 4.25 10^6/uL (4.20-5.40); White Blood Count 9.7 10^3/uL (4.0-11.0)
[2025-02-26 16:47] LABS: Glucose Urine UA NEGATIVE (NEGATIVE)
[2025-02-26 17:02] LABS: Alanine Aminotransferase 34 U/L (14-59); Albumin Globulin Ratio 0.8; Albumin Level 3.7 g/dL (3.4-5.0); Alkaline Phosphatase 97 U/L (46-116); Aspartate Amino Transferase 23 U/L (15-37); Blood Urea Nitrogen 14.0 mg/dL (7.0-18.0); Calcium 9.2 mg/dL (8.5-10.1); Carbon Dioxide 29.4 mmol/L (21.0-32.0); Chloride 100 mmol/L (98-107); Estimated GFR (African America >60 (>=60 mL/min/1.73m^2); Estimated GFR (Non-African Ame 51 (>=60 mL/min/1.73m^2); Globulin 4.4 g/dL; Glucose 83 mg/dL (74-106); Lipase 49.0 U/L (16.0-77.0); Sodium 139 mmol/L (136-145); Total Protein 8.1 g/dL (6.4-8.2)
[2025-02-26 17:07] LABS: Anion Gap 12.6; Potassium 3.0 mmol/L (3.5-5.1)
[2025-02-26 17:31] LABS: Cast Seen? NONE SEEN #/LPF (NONE SEEN); Crystals Seen? None Seen #/HPF (None Seen)
[2025-02-26] MEDS: DICYCLOMINE HCL 20 MG/2 ML VIAL IM (17:33)
[2025-02-26] MEDS: MORPHINE SULFATE 4 MG/ML VIAL IV (17:56)
[2025-02-26] MEDS: DEXAMETHASONE SOD PHOS 10 MG/ML VIAL IV (17:56)
[2025-02-26 18:05] VITALS: BP 111/90; PULSE 99; O2SAT 97
== END 2025-02-26 18:07 | disposition home or self-care (01) ==
PROVIDERS: Nurse Practitioner Family; Emergency Provider Emergency Medicine; PCP Family Medicine
DX: R10.9 Unspecified abdominal pain (principal); M54.9 Dorsalgia, unspecified; Z90.49 Acquired absence of other specified parts of digestive tract
CPT/HCPCS: 36415; 74176; 80053; 81001; 83690; 85025; 96372; 96374; 96375; 99285; J0500; J1100; J2270; J2405

== ENCOUNTER 2025-03-19 09:31 | Outpatient (OUT) | payer MEDICARE, SELFPAY ==
--- OUTSIDE RECORDS SUMMARY | 2025-03-19 09:32 | XMS_ITS | Encounter Summary ---
Author Organization [facility] Address [address] [place] [address] Care Team Providers Care Art Museum Aide Name Role Phone Erika Gaviria MD Primary Care Provider [phone] Humera Fontenot BALANCE ASSEMBLER Unavailable Encounter Details DateTypeDepartmentCare Team (Latest Contact Info)Jozkaxblaon50/20/2025bstract [facility] [address] [place] [phone] Erika Gaviria MD [address] [facility] 110 [place] [address] Social History Tobacco UseTypesPacks/DayYears UsedDateSmoking Tobacco: NeverSmokeless Tobacco: NeverAlcohol UseStandard Drinks/WeekCommentsYes5 (1 standard drink = 0.6 oz pure alcohol)Caffeine intake: 1-2 cups per [id number] Health LiteracyAnswerDate RecordedHow often do you need to have someone help you when you read instructions, pamphlets, or other written material from your doctor or pharmacy? Gkvtbevkb42/24/2025Humiliation, Afraid, Rape, and Kick questionnaireAnswerDate RecordedWithin the [...] times a week01/15/2025How often do you attend catholic or buddhist services?More than 4 times per year 01/15/2025Do you belong to any clubs or organizations such as catholic groups, unions, fraCardiOx or athletic groups, or school groups?Yes01/15/2025How often do you attend meetings of the clubs or organizations you belong to?More than 4 times per year01/15/2025re you , , , , never , or living with a partner?Hbxfuyv5301/15/2025UDIT-CAnswerDate RecordedQ1: How often do you have a drink containing alcohol?Monthly or less01/15/2025Q2: How many drinks containing alcohol do you have on a typical day when you are drinking?1 or Q3: How often do you have six or more drinks on one occasion?Less than wwqfewd1601/15/2025Overall Financial Resource Strain (CARDIA) AnswerDate RecordedHow hard is it for you to pay for the very basics like food, housing, medical care, and heating?Somewhat hard01/15/2025PHQ-2AnswerDate RecordedPatient Health Questionnaire-2 Fmdqt622Finamerican fork hospital [place] of Occupational Health - Occupational Stress QuestionnaireAnswerDate RecordedDo you feel stress - tense, restless, nervous, or anxious, or unable to sleep at night because yourmind is troubled all the time - these days?To some otqhkq3201/06/2024 Exercise Vital SignAnswerDate RecordedOn average, how many [...] steady place to sleep or slept in [place] (including now)?No11/09/2022Housing Stability Vital SignAnswerDate RecordedIn the last 12 months, was there a time when you were not able to pay the mortgage or rent on time?No01/15/2025In the past 12 months, how many times have you moved where you were living?t any time in the past 12 months, were you homeless or living in a group home (including now)?No01/15/2025 CommentsUnknownSex and Gender InformationValueDate RecordedSex Assigned at BirthNot on fileLegal OvcMnngmv99/15/2023 8:00 PM EDTGender IdentityNot on fileSexual OrientationNot on filedocumented as of this encounter Plan of Treatment Not on file documented as of this encounter Visit Diagnoses Not on filedocumented in this encounter Additional Health Concerns AssessmentNoted TimePHQ-9 Depression Total Score: 7:00 AM EDT documented as of this encounter Care Teams Team MemberRelationshipSpecialtyStart DateEnd Date Erika Gaviria MD [address] [facility] 110 [place] [address] PCP - GeneralFamily Medicine11/15/22 Humera Fontenot LPN [address] [address] [place] [address] 07/12/24documented as of this encounter
--- OUTSIDE RECORDS SUMMARY | 2025-03-19 09:32 | XMS_ITS | Clinical Summary ---
Author Organization [facility] tem Address [id number] [place] [address] Care Team Providers Care Production Dispatcher Name Role Phone Erika Gaviria MD Primary Care Provider [phone] Allergies No known active allergies Medications MedicationSigDispense QuantityRefillsLast FilledStart DateEnd DateStatus montelukast (SINGULAIR) 10 mg tablet Take 10 mg by mouth nightly.Active albuterol (PROVENTIL HFA;VENTOLIN HFA) 90 mcg/actuation inhaler Inhale 2 puffs every 6 (six) hours as needed for wheezing.Active lansoprazole (PREVACID) 15 mg capsule Take 15 mg by mouth daily.Active meclizine (ANTIVERT) 25 mg tablet Take 1 tablet (25 mg total) by mouth as needed in the morning and 1 tablet (25 mg total) as needed at noon and 1 tablet (25 mg total) as needed in the evening for dizziness. 20 tablet 07/17/2021ctive LORazepam (ATIVAN) 1 mg tablet Indications:VertigoTake 0.5 tablets (0.5 mg total) by mouth as needed in the morning and 0.5 tablets (0.5 mg total) asneeded at noon and 0.5 tablets (0.5 mg total) as needed in the evening (dizziness). Do all this forup to 6 doses. 3 tablet 07/17/2021ctive Social History Tobacco UseTypesPacks/DayYears UsedDateSmoking Tobacco: NeverSmokeless Tobacco: NeverAlcohol UseStandard Drinks/WeekCommentsYes0 (1 standard drink = 0.6 oz pure alcohol)occasionallyChildcareAnswerDate WaziliczWcbafncgcSdfoysy25/12/2019 EmploymentAnswerDate ZmkruwicDqixtlhvcyVbfobkm59/12/2019Purpose - LifeAnswerDate RecordedPurpose and direction in yaatFllmsdh83/11/2021CommentsUnknownSex and Gender InformationValueDate RecordedSex Assigned at BirthNot on fileLegal PtfVvqrps13/06/2015 11:28 AM EDTGender IdentityNot on fileSexual OrientationNot on file Last Filed Vital Signs Vital SignReadingTime TakenCommentsBlood Lrlpwggg233/7403 1:17 AM EDT Qzack539007/17/2021 12:00 AM JRZTbzwtweqxxg20.6 ??C (97.8 ??F)07/16/2021 10:25 PM EDTRespiratory Qxna396007/17/2021 1:17 AM EDTOxygen Udgbiplspf02%07/17/2021 1:17 AM EDTInhaled Oxygen Concentration--Nbmurh78 kg (150 lb)07/16/2021 10:25 PM EDT Zdayqc290.9 cm (5' 1 )07/16/2021 10:25 PM EDTBody Mass Index28.34007/16/2021 10:25 PM EDT Plan of Treatment DateTypeDepartmentCare Team (Latest Contact Info)Wmygtithftx66/02/2025 12:00 PM ESTOffice Visit [facility] [address] [place] [phone] Maureen Polanco, HEAD MILLER-RESEARCH PROJECT MANAGER [address] [place] [address] Health MaintenanceDue DateLast DoneCommentsDepression Vawmtqyff27/14/1973Tobacco Ilguygqvl77/14/1973Adult BMI Aqmlwwpom10/14/1979Pap Smear1981COVID-19 Vaccine ( season)5001/20/2022, 02/19/2021, 07/31/2020, Additional history ulwycuSjwkfujpvzg66/31/202907/, 11/21/2018, 12/20/2017 DTaP,Tdap and Td Vaccines (2 - Td or Tdap)Zoster (Shingles) PdxreseBjuarmcal08/12/2022, 2RSV ( or age 60+ yrs)Completed 06/07/2023Influenza SmocvonKgowtvlku83/30/2025, 03/01/2024, 12/31/2022, Additional history exists Medical Devices Not on file Insurance * Guarantor: Анна Amaya VAccount TypeRelation to PatientDate of PhoneBilling AddressPersonal/UqrcqdKcfl28/14/1961 [address] [facility] [address] [place] [address] Care Teams Team MemberRelationshipSpecialtyStart DateEnd Date Erika [place] [address] [place] [address] PCP - General05/24/17
--- OUTSIDE RECORDS SUMMARY | 2025-03-19 09:32 | XMS_ITS | Encounter Summary ---
Author Organization [facility] Address [address] [place] [address] [place] [address] Care Team Providers Care Marine Habitat Resource Specialist Name Role Phone Erika Gaviria MD Primary Care Provider [phone] Humera Fontenot LPN Unavailable Reason for Referral * Consultation (Routine) - AuthorizedSpecialtyDiagnoses / ProceduresReferred By ContactReferred To ContactScin Medicine Diagnoses Other chronic pain Chronic pain of both knees Procedures PA OFFICE/OUTPATIENT [facility] MDM 60 MINUTES Erika Gaviria MD [address] [facility] [address] [place] [address] Phone: tel: fax: Jareth Morocho MD [address] [place] [address] Phone: tel: fax: Referral IDStatusReasonStart DateExpiration DateVisits RequestedVisits [id number] Specialty Services Required / Encounter Details DateTypeDepartmentCare Team (Latest Contact Info)Cutjpoanski56/19/2025Telephone [facility]Fel[facility] [address] [facility] 110 [place] [address] Erika Gaviria MD [address] [facility] [address] [place], [place] [address] Social History Tobacco UseTypesPacks/DayYears UsedDateSmoking Tobacco: NeverSmokeless Tobacco: NeverAlcohol UseStandard Drinks/WeekCommentsYes5 (1 standard drink = 0.6 oz pure alcohol)Caffeine intake: 1-2 cups per [id number] Health LiteracyAnswerDate RecordedHow often do you need to have someone help you when you read instructions, pamphlets, or other written material from your doctor or pharmacy? Janyjrfel07/24/2025Humiliation, Afraid, Rape, and Kick questionnaireAnswerDate RecordedWithin the [...] times a week01/15/2025How often do you attend taoism or amish services?More than 4 times per year 01/15/2025Do you belong to any clubs or organizations such as taoism groups, unions, fraternal or athletic groups, or school groups?Yes01/15/2025How often do you attend meetings of the clubs or organizations you belong to?More than 4 times per year01/15/2025re you , , , , never , or living with a partner?Paygwzi5801/15/2025UDIT-CAnswerDate RecordedQ1: How often do you have a drink containing alcohol?Monthly or less01/15/2025Q2: How many drinks containing alcohol do you have on a typical day when you are drinking?1 or Q3: How often do you have six or more drinks on one occasion?Less than pogzipj4701/15/2025Overall Financial Resource Strain (CARDIA) AnswerDate RecordedHow hard is it for you to pay for the very basics like food, housing, medical care, and heating?Somewhat hard01/15/2025PHQ-2AnswerDate RecordedPatient Health Questionnaire-2 Hrudz905FinWhite County [facility] of Occupational Health - Occupational Stress QuestionnaireAnswerDate RecordedDo you feel stress - tense, restless, nervous, or anxious, or unable to sleep at night because yourmind is troubled all the time - these days?To some rzmnys3501/06/2024 Exercise Vital SignAnswerDate RecordedOn average, how many [...] were you homeless or living in a residential (including now)?No01/15/2025 CommentsUnknownSex and Gender InformationValueDate RecordedSex Assigned at BirthNot on fileLegal AayRbrhsp66/15/2023 8:00 PM EDTGender IdentityNot on fileSexual OrientationNot on filedocumented as of this encounter Miscellaneous Notes * Telephone Encounter - CORRY PEREZ - 03/12/2025 3:13 PM EST Patient notified, referral faxed * Telephone Encounter - Madie Monroy - 03/12/2025 3:00 PM EST Patient wants to know if she can get a referral to [facility] pain management. She called her insurance and they said that they would accept her insurance. She said that she has been referred to neruology and has had xrays done with us for this pain and its still occurring so she wanted painmanagement to be her next step. documented in this encounter Plan of Treatment NameTypePriorityAssociated DiagnosesOrder ScheduleAmbulatory referral to Pain MedicineOutpatient ReferralRoutine Other chronic pain Chronic pain of both knees Expected: 03/12/2025 (Approximate), Expires: 09/09/2025documented as of this encounter Visit Diagnoses Diagnosis Other chronic pain Chronic pain of both knees documented in this encounter Additional Health Concerns AssessmentNoted TimePHQ-9 Depression Total Score: 7:00 AM EDT documented as of this encounter Care Teams Team MemberRelationshipSpecialtyStart DateEnd Date Erika Gaviria MD [address] [place] [address] PCP - GeneralFamily Medicine11/15/22 Humera Fontenot LPN 112 [facility] 110 [place] [address] 07/12/24documented as of this encounter
--- OUTSIDE RECORDS SUMMARY | 2025-03-19 09:32 | XMS_ITS | Encounter Summary ---
Author Organization [facility] Address [address] [place] [address] Care Team Providers Care Hvac Residential Service Technician Name Role Phone Erika Gaviria MD Primary Care Provider [phone] Humera Fontenot LPN Unavailable Encounter Details DateTypeDepartmentCare Team (Latest Contact Info)Zhecguqhivr21/13/2025Patient Outreach [facility] [address] [place] [address] Humera Fontenot LPN [address] [place] [address] Social History Tobacco UseTypesPacks/DayYears UsedDateSmoking Tobacco: NeverSmokeless Tobacco: NeverAlcohol UseStandard Drinks/WeekCommentsYes5 (1 standard drink = 0.6 oz pure alcohol)Caffeine intake: 1-2 cups per [id number] Health LiteracyAnswerDate RecordedHow often do you need to have someone help you when you read instructions, pamphlets, or other written material from your doctor or pharmacy? Yxxgsrbmd93/24/2025Humiliation, Afraid, Rape, and Kick questionnaireAnswerDate RecordedWithin the [...] week01/15/2025How often do you attend orthodox or druze services?More than 4 times per year 01/15/2025Do you belong to any clubs or organizations such as orthodox groups, unions, fraCryoMedix or athletic groups, or school groups?Yes01/15/2025How often do you attend meetings of the clubs or organizations you belong to?More than 4 times per year01/15/2025re you , , , , never , or living with a partner?Tqwqtra6101/15/2025UDIT-CAnswerDate RecordedQ1: How often do you have a drink containing alcohol?Monthly or less01/15/2025Q2: How many drinks containing alcohol do you have on a typical day when you are drinking?1 or Q3: How often do you have six or more drinks on one occasion?Less than fbnyyml8101/15/2025Overall Financial Resource Strain (CARDIA) AnswerDate RecordedHow hard is it for you to pay for the very basics like food, housing, medical care, and heating?Somewhat hard01/15/2025PHQ-2AnswerDate RecordedPatient Health Questionnaire-2 Nkxyx539Finhighland ridge hospital [place] of Occupational Health - Occupational Stress QuestionnaireAnswerDate RecordedDo you feel stress - tense, restless, nervous, or anxious, or unable to sleep at night because yourmind is troubled all the time - these days?To some dmqwhj5901/06/2024 Exercise Vital SignAnswerDate RecordedOn average, how many [...] steady place to sleep or slept in [place] (including now)?No11/09/2022Housing Stability Vital SignAnswerDate RecordedIn the last 12 months, was there a time when you were not able to pay the mortgage or rent on time?No01/15/2025In the past 12 months, how many times have you moved where you were living?t any time in the past 12 months, were you homeless or living in a senior care (including now)?No01/15/2025 CommentsUnknownSex and Gender InformationValueDate RecordedSex Assigned at BirthNot on fileLegal InwUbhkhd98/15/2023 8:00 PM EDTGender IdentityNot on fileSexual OrientationNot on filedocumented as of this encounter Progress Notes * Humera Fontenot, TESS - 03/06/2025 11:52 AM EST Spoke with pt for outreach. Pt states she is doing ok right now. She shares she still has back pain, but feels it is something that is just going to be around forever. I discuss continuing with CCM and pt would like to continue with services. We review care plan and pt agreeable to this plan. Denies any needs or concerns at this time. Encouraged to call if any arise. * Humera Fontenot LPN - 03/06/2025 11:52 AM EST Images from the original note were not included. 03/06/2025 Анна Amaya 1960 [address] [facility] [address] [facility] [address] Problem: Multiple Chronic Conditions/CCM Participation Goal: Pt will utilize phone monitoring to communicate changes and to address any questions/concernsregarding health and/or healthcare. Intervention: Encourage pt to communicate any and changes regarding healthcare and Problem: Med Adherence Goal: Consistently take medications as prescribed Intervention: Discuss barriers to patient's medication routine Intervention: Educate patient on frequency and refill details of meds documented in this encounter Plan of Treatment Not on file documented as of this encounter Visit Diagnoses Diagnosis Stage 3a chronic kidney disease (CMS-HCC)- Primary Back pain, unspecified back location, unspecified back pain laterality, unspecified chronicity documented in this encounter Additional Health Concerns AssessmentNoted TimePHQ-9 Depression Total Score: 7:00 AM EDT documented as of this encounter Care Teams Team MemberRelationshipSpecialtyStart DateEnd Date Erika Gaviria MD 112 [facility] 110 [place] [address] PCP - GeneralFamily Medicine11/15/22 Humera Fontenot LPN 112 [facility] 110 [place] [address] 07/12/24documented as of this encounter
--- OUTSIDE RECORDS SUMMARY | 2025-03-19 09:33 | XMS_ITS | Patient Health Record ---
Author Organization [facility] vices Address [address] [place] [id number] Care Team Providers Care Hogshead Filler Name Role Phone Shanna Lloyd Unavailable [phone] Allergies No Known Allergies Reason For Referral No Information Medications Medication SIG (Take, Route, Frequency, Duration) Notes Start Date End Date Status Levothyroxine Sodium ActivehydroCHLOROthiazide 25 MG Tablettake 1 tablet by mouth every morning Oral; Duration: 90ActivePantoprazole Sodium 40 MG Tablet Delayed ReleaseTAKE 1 tablet Orally daily Oral; Duration: 30ActiveVentolin HFA 108 (90 Base) MCG/ACT Aerosol Solutioninhale 2 puffs by mouth INTO THE LUNGS every 4 hours if needed Inhalation; Duration: 16ActiveMontelukast Sodium 10 MG Tablettake 1 tablet by mouth every evening Oral; Duration: 30ActiveRosuvastatin Calcium 10 MG Tablet Oral; Duration: 30Not-Taking/PRN Social History Tobacco Use: Social History Observation Description Date Details (start date - stop date) Never Smoker NA - NA Sex Assigned At : Social History Observation Description Sex Assigned At Female Social History Tobacco Use:Social InfoQuestionAnswerNotesTobacco Use/SmokingTobacco use: nonsmoker Problems Problem Type SNOMED Code ICD Code Onset Dates Problem Status W/U Status Risk Notes Problem Body mass index 25-29 - overweig ht (783317760) BMI 28.0-28.9,adult (Z68.28) Activeconfirmed Plan Of Treatment No Information Insurance Providers Payer Name Payer Address Payer Phone Subscriber Number Group Number Insured Name Patient Relationship to Insured Coverage Start Date Coverage End Date [employer] [address] [address] [place] [phone] [id number] Анна Amaya Self - patient is the insured 4 DMedicaid Medicare CrossoverPO [address] [place] [id number] Анна AmayaSelf - patient is the [id number] 2023
--- OUTSIDE RECORDS SUMMARY | 2025-03-19 09:33 | XMS_ITS | Clinical Summary ---
Author Organization [facility] Healthcare Address [address] [place] [address] Care Team Providers Care Statistical Programmer Analyst Name Role Phone Erika Zee MD Primary Care Provider [phone] Humera Fontenot LPN Unavailable Allergies Active AllergyReactionsCriticalityNoted VcknLbfuytlaVybtfroybp44/30/2025 Medications MedicationSigDispense QuantityRefillsLast FilledStart DateEnd DateStatus albuterol [...] both knees06/10/2024 CPAP (continuous positive airway pressure) bojojphsdg61/25/2023ifficulty qxlvihnt00/25/2023cquired jtcgjpcxsnnipk38/24/2023nkylosis, right shoulder 11/14/2022enign hrdjuaeymqly96/24/4224Hfplhykoa03/24/2023Elevated LDL cholesterol level11/14/2022astroesophageal reflux pkcnfzp3411/14/2022eneralized anxiety rpqwesaz72/24/2023History of total xddmygppncwe02/24/2023Hypokalemia 11/14/2022Inflammation of right sacroiliac joint11/14/2022Moderate persistent asthma without acnsivgzufgj34/24/2023OSA (obstructive sleep apnea)11/14/2022 Other chronic pain11/14/2022Overweight (BMI 25.0-29.9)11/14/2022Retinitis sqlwklyhou73/24/2023Seasonal gvgrcylnf92/24/2023Stage 3a chronic kidney disease 11/14/2022Tension /24/6034Dnazdhcpazqevc03/24/2023 Encounters DateTypeDepartmentCare MtppLefyhrduudt04/20/2025bstract [facility] [address] [facility] [address] [place] [address] Erika Zee MD 03/12/2025Telephone [facility] [place] [facility] [address] [facility] [address] [place] [address] Erika Zee MD 03/06/2025Patient Outreach N[facility] [place] [id number] [place] [address] Humera Fontenot COATER OPERATOR 02/27/2025Patient Outreach N[facility] [place] [address] [place] [address] FontenotHumera, COATER OPERATOR 02/17/2025bstract [facility] [address] [facility] [address] [place] [address] Erika Zee MD 02/10/2025bstract [facility] [address] [facility] [address] [place] [address] Erika Zee MD 01/22/2025bstract [facility] [address] [facility] [address] [place] [address] Erika Zee MD 01/21/2025 8:00 AM EDTOffice Visit NOMS [place] [facility] [address] [facility] [address] [place] [address] Franny Salazar, PA Medicare annual wellness visit, subsequent (Primary [...] Seasonal allergies; Stage 3a chronic kidney disease ([facility])09/30/2025Results Follow-Up NOM[facility] [place] Zar[facility]za [facility] [address] [facility] [address] [place] [address] Franny Salazar, PA XR knee 4+ views soutguapp06/30/2025bstract NOMS [place] [facility]za [facility] [address] [facility] [address] [place] [address] Erika Zee MD 01/21/2025linisync Result Encounter NOMS External Department Unsolicited Franny Salazar, PA 01/21/2025linisync Result Encounter NOMS External Department Unsolicited Farnny Salazar, PA 01/21/2025amboo flowsheet [facility] [place] [facility] [address] [facility] [address] [place] [address] Franny Salazar PA 01/21/20253336Vtmnni57/25/2025Results Follow-Up NOMS [place] Zaragoza [facility] [address] [facility] [address] [place] [address] Franny Salazar, PA ALL CBC WITH AUTO DIFF, CCF CMP (CMP) (FOR REMOTE [facility] USE), ALL LIPID PROFILE (FASTING), Additionalfollowed-up results: bstract NOMS [place] [facility] [address] [facility] [address] [place] [address] Erika Zee MD 01/16/2025bstract [facility] [place] [facility] [address] [facility] [address] [place] [address] Erika Zee MD 01/16/2025linisync Result Encounter NOMS External Department Unsolicited Franny Salazar, PA 01/15/20255255Xlyctg75/17/2025Patient Outreach [facility] [place] [address] Humera Fontenot LPN 12/17/2024Refill [facility] [place] [facility] [address] [facility] [address] [place] [address] Sandra, Emilia, COATER OPERATOR Other chronic painfrom Last 3 Months Immunizations ImmunizationAdministration DatesNext DueInfluenza, Madin Cynthia Canine Kidney, subunit, trivalent, injectable, contains pnyfperlkvmk06/30/2025Influenza, Recombinant, injectable, preservative free03/01/2024Influenza, injectable, cnnrezrgpzan93/28/2020Influenza, injectable, quadrivalent, preservative free 12/31/2022,01/12/2022,02/18/2021,01/03/2019,01/25/2018,02/02/2016Influenza, seasonal, intradermal, preservative free01/03/2019,01/25/2018Pneumococcal Conjugate PCV 131Pneumococcal Polysaccharide EZVZ259705/21/2019RSV, recombinant, protein subunit RSVpreF, adjuvant reconstitu, 120mcg/0.5mL, PF (Arexvy)06/07/20230759YRLP-AuO-4, Wnezvkopiev55/29/8904Vpxg32/17/2019Zoster, Kfupwmgbooi31/12/2022,12/01/2021 Family History Medical HistoryRelationNameCommentsKidney diseaseBrotherHypertensionMotherKidney diseaseMotherRelationNameStatusCommentsBrotherFatherDeceasedMotherDeceased Social History Tobacco UseTypesPacks/DayYears UsedDateSmoking Tobacco: NeverSmokeless Tobacco: Never Tobacco Cessation:Counseling Given: Not Answered Alcohol UseStandard Drinks/WeekCommentsYes5 (1 standard drink = 0.6 oz pure alcohol)Caffeine intake: 1-2 cups per dulW8761 Health LiteracyAnswerDate RecordedHow often do you need to have someone help you when you read instructions, pamphlets, or other written material from your doctor or pharmacy? Flrdsmwbo24/24/2025Humiliation, Afraid, Rape, and Kick questionnaireAnswerDate RecordedWithin the [...] times a week01/15/2025How often do you attend orthodoxy or judaism services?More than 4 times per year 01/15/2025Do you belong to any clubs or organizations such as orthodoxy groups, unions, fraternal or athletic groups, or school groups?Yes01/15/2025How often do you attend meetings of the clubs or organizations you belong to?More than 4 times per year01/15/2025re you , , , , never , or living with a partner?Ioklcmu9301/15/2025UDIT-CAnswerDate RecordedQ1: How often do you have a drink containing alcohol?Monthly or less01/15/2025Q2: How many drinks containing alcohol do you have on a typical day when you are drinking?1 or Q3: How often do you have six or more drinks on one occasion?Less than slsfvii6601/15/2025Overall Financial Resource Strain (CARDIA) AnswerDate RecordedHow hard is it for you to pay for the very basics like food, housing, medical care, and heating?Somewhat hard01/15/2025PHQ-2AnswerDate RecordedPatient Health Questionnaire-2 Tnher258Finbrigh[facility] [place] of Occupational Health - Occupational Stress QuestionnaireAnswerDate RecordedDo you feel stress - tense, restless, nervous, or anxious, or unable to sleep at night because yourmind is troubled all the time - these days?To some nfzipy5901/06/2024 Exercise Vital SignAnswerDate RecordedOn average, how many [...] steady place to sleep or slept in [facility] (including now)?No11/09/2022Housing Stability Vital SignAnswerDate RecordedIn the last 12 months, was there a time when you were not able to pay the mortgage or rent on time?No01/15/2025In the past 12 months, how many times have you moved where you were living?t any time in the past 12 months, were you homeless or living in a detention (including now)?No01/15/2025 CommentsUnknownSex and Gender InformationValueDate RecordedSex Assigned at BirthNot on fileLegal RchNupzon40/15/2023 8:00 PM EDTGender IdentityNot on fileSexual OrientationNot on file Last Filed Vital Signs Vital SignReadingTime TakenCommentsBlood Ojtmpjhc335/8409 8:09 AM EDT Jeqht6877 8:09 AM EDTTemperature--Respiratory Rqmi4490 8:09 AM EDTOxygen Bqdvcszrra52%01/21/2025 8:09 AM EDTInhaled Oxygen Concentration-- Ftfxtx89.7 kg (155 lb 12.8 oz)01/21/2025 8:09 AM HOCHjtrux811.9 cm (5' 1 ) 01/21/2025 8:09 AM EDTBody Mass Index29.44001/21/2025 8:09 AM EDT Plan of Treatment Health MaintenanceDue DateLast DoneCommentsCT Jhzuodpiaumg57/14/1961FIT-DNA 1960FIT1960FOBT1960 1442Nxqwbsxystgxn05/14/1961OVID-19 Vaccine ( season), 07/24/2021, 02/19/2021, Additional history existsPneumococcal Vaccine: Pediatrics (0 to 5 Years) and At-Risk Patients (6 to 64 Years) (3 of 3 - PCV20 or PCV21), 02/02/20161648Giwxhlqxo13, 10/30/2023, 10/21/2022, Additional history existsMedicare Annual Wellness (AWV)/, 01/10/2024, 11/15/2022, Additional history vyfeaxUcztqiyqsoq85/31/202907/, 12/20/2017 Colorectal Cancer Mkekydtgw11/31/2029Influenza UstuvijXehpuxhow57/30/2025, 03/01/2024, 12/31/2022, Additional history exists Procedures Procedure NamePriorityDate/TimeAssociated DiagnosisCommentsXR KNEE 4+ VIEWS INYTPUSXS82/30/2025 10:31 AM EDT XR KNEE STANDING BI01/21/2025 10:31 AM EDT ALL THYROXINE (T4) SHUFWbfizgt09/25/2025 7:10 AM EDT TSH W/REFLEX U8Nkyrgzd53/25/2025 7:10 AM EDT ALL LIPID PROFILE (FASTING)Uihyliu3101/16/2025 7:10 AM EDT CCF CMP (CMP) (FOR REMOTE [facility] USE)Tqmlhul6301/16/2025 7:10 AM EDT ALL CBC WITH AUTO HFVPMtkcwct72/25/2025 7:10 AM EDT MM TOMOSYNTHESIS SCREENING BI11/06/2024 11:14 AM EDT EYIGHSWQPCRJtrwstg39/31/2019 12:00 PM EDT from Last 3 Months or Most Recently Relevant to Health Maintenance Results * XR KNEE STANDING BI (01/21/2025 10:31 AM EDT)Anatomical RegionLaterality ModalityRadiographic ImagingSpecimen (Source)Anatomical Location / Laterality Collection Method / VolumeCollection TimeReceived Time01/21/2025 10:31 AM EDT Narrative 01/21/2025 10:34 AM EDT [facility] ?[address] ? [place] [address] ?XRay Report ? Signed ? Patient: SILVIO,АННА V ?MR#: [id number] ?? : 1960 ?Acct:[id number] ?? Age/Sex: 64 / F ?ADM Date: 01/21/25 ?? Loc: RAD ? Attending Dr: FRANNY SALAZAR ? Ordering Physician: FRANNY SALAZAR ?? Date of Service: 01/21/25 ?? Procedure(s): XR knee standing BI ?? Accession Number(s): [id number] ? cc: ERIKA ZEE ; FRANNY SALAZAR ? [facility] ? [address] ? [place] [address] ? Patient Name: ?? АННА V SILVIO ? MRN: TBH:[id number] ? date: 1960 ?Sex: F ?? Assigned Patient Location: RAD ?? Current Patient Location: RAD ?? Accession/Order Number: [id number] ?? Exam Date: 01/21/2025 ??09:30 ?Report Date: [...] M.D. ??01/21/2025 10:31 AM ? Dictation Location: [place] [address] ? Electronically authenticated by: [id number] ??Y ?? Date: 01/21/2025 ??10:31 ? Dictated By: ?Franny Mayberry M.D. ? Signed By: ?01/21/25 1034 ? DD/ 1031 ? TD/TT: ? Tin Dipper: Procedure Note Radiology, Radiologist, MD - 01/21/2025 [place] [address] XRay Report Signed Patient: АННА AMAYA R#: [id number] : 1960cct:[id number] Age/Sex: 64 / FADM Date: 01/21/25 Loc: [facility] Attending Dr: FRANNY SALAZAR Ordering Physician: FRANNY SALAZRA Date of Service: 01/21/25 Procedure(s): XR knee standing BI Accession Number(s): [id number] cc: ERIKA ZEE ; FRANNY SALAZAR [place] [id number] Patient Name: АННА AMAYA MRN: TBH:[id number] date: 1960 Sex: F Assigned Patient Location: [facility] Current Patient Location: [facility] Accession/Order Number: [id number] Exam Date: 01/21/2025 09:30 Report Date: 01/21/2025 [...] Mayberry M.D. 01/21/2025 10:31 AM Dictation Location: [place] [address] Electronically authenticated by: [id number] Y Date: 0:31 Dictated By: Franny Mayberry M.D. Signed By:01/21/25 1034 DD/ 1031 TD/TT: Tin Dipper: Authorizing ProviderResult TypeResult StatusFranny Salazar PAIMG XR PROCEDURES Final Result * XR knee 4+ views bilateral (01/21/2025 10:31 AM EDT)Anatomical Region LateralityModalityLower Extremities, KneeBilateralRadiographic ImagingSpecimen (Source)Anatomical Location / LateralityCollection Method / VolumeCollection TimeReceived Time01/21/2025 10:31 AM EDT Narrative 01/21/2025 10:34 AM EDT [facility] ?[address] ? [place], [place] [address] ?XRay Report ? Signed ? Patient: SILVIO,АННА V ?MR#: [id number] ?? : 1960 ?Acct:[id number] ?? Age/Sex: 64 / F ?ADM Date: 01/21/25 ?? Loc: RAD ? Attending Dr: FRANNY SALAZAR ? Ordering Physician: FRANNY SALAZAR ?? Date of Service: 01/21/25 ?? Procedure(s): XR knee HOLLY 4V ?? Accession Number(s): [id number] ? cc: ERIKA ZEE ; FRANNY SALAZAR ? [facility] ? [address] ? [place] [address] ? Patient Name: ?? АННА AMAYA ? MRN: [facility]:[id number] ? date: 1960 ?Sex: F ?? Assigned Patient Location: RAD ?? Current Patient Location: RAD ?? Accession/Order Number: [id number] ?? Exam Date: 01/21/2025 ??09:30 ?Report Date: 01/21/2025 ??10:31 ? At the request of: ?? FRANNY SAALZAR ? Procedure: ??XR knee HOLLY 4V ? [...] M.D. ??01/21/2025 10:31 AM ? Dictation Location: [place] [address] ? Electronically authenticated by: [id number] ??Y ?? Date: 01/21/2025 ??10:31 ? Dictated By: ?Franny Mayberry M.D. ? Signed By: ?01/21/25 1034 ? DD/ 1031 ? TD/TT: ? Tin Dipper: Procedure Note Radiology, Radiologist, MD - 01/21/[address] [address] XRay Report Signed Patient: АННА AMYAA R#: [id number] : 1960cct:[id number] Age/Sex: 64 / FADM Date: 01/21/25 Loc: RAD Attending Dr: FRANNY SALAZAR Ordering Physician: FRANNY SALAZAR Date of Service: 01/21/25 Procedure(s): XR knee HOLLY 4V Accession Number(s): [id number] cc: ERIKA ZEE ; FRANNY SALAZAR The [address] [address] Patient Name: АННА AMAYA MRN: [id number]:[id number] date: 1960 Sex: F Assigned Patient Location: [facility] Current Patient Location: [facility] Accession/Order Number: [id number] Exam Date: 01/21/2025 09:30 Report Date: 01/21/2025 [...] Mayberry M.D. 01/21/2025 10:31 AM Dictation Location: [place] [address] Electronically authenticated by: [id number] Y Date: 0:31 Dictated By: Franny Mayberry M.D. Signed By:01/21/25 1034 DD/ 1031 TD/TT: Tin Dipper: Authorizing ProviderResult TypeResult StatusFranny Salazar PAIMG XR PROCEDURES Final Result * (ABNORMAL) TSH W/REFLEX T4 (01/16/2025 7:10 AM EDT)ComponentValueRef RangeTest MethodAnalysis TimePerformed AtPathologist SignatureTSH4.100(H)0.358 - 3.740 uIU/mLTBHSpecimen (Source)Anatomical Location / LateralityCollection Method / VolumeCollection TimeReceived Time01/16/2025 7:10 AM EDT01/16/2025 7:11 AM EDT Narrative [facility] - 01/16/2025 8:01 AM EDT Authorizing ProviderResult TypeResult StatusFranny Salazar [facility] BLOOD ORDERABLESFinal ResultPerforming OrganizationAddressCity/State/ZIP CodePhone Number [facility] TB * (ABNORMAL) CCF CMP (CMP) (FOR REMOTE [facility] USE) (01/16/2025 7:10 AM EDT) ComponentValueRef RangeTest MethodAnalysis TimePerformed AtPathologist OwbqyzdlsOXGALX963114 - 145 mmol/LTBHPOTASSIUM3.53.5 - 5.1 mmol/LTBHCHLORIDE 53533 - 107 mmol/LTBHCARBON LWSYUOX13.421.0 - 32.0 mmol/LTBHANION GAP10.1TBH MQZCFQV316(H)74 - 106 mg/dLTBHBLOOD UREA WYLCEGGL96.07.0 - 18.0 mg/dLTBH CREATININE1.020.55 - 1.02 mg/dLTBHTBH EGFR-AF KAZAKH>60>=60 mL/min/1.73m 2 TBHTBH EGFR-NON AF MSWGURFT49(L)>=60 mL/min/1.73m 2TBHBUN CREATININE RATIO13.7 TBHCALCIUM9.38.5 - 10.1 mg/dLTBHBILIRUBIN TOTAL0.30.2 - 1.0 mg/dLTBHASPARTATE AMINO SUGEVJUCBQB5845 - 37 U/LTBHALANINE XCVRDJLBNYBHBCTE4457 - 59 U/LTBH ALKALINE JJHERLCCBNP6047 - 116 U/LTBHTOTAL PROTEIN8.3(H)6.4 - 8.2 g/dLTBH ALBUMIN LEVEL3.53.4 - 5.0 g/dLTBHGLOBULIN4.8g/dLTBHALBUMIN GLOBULIN RATIO0.7 TBHSpecimen (Source)Anatomical Location / LateralityCollection Method / Volume Collection TimeReceived Time01/16/2025 7:10 AM EDT01/16/2025 7:11 AM EDT Narrative CLIN[facility]YWA - 01/16/2025 8:01 AM EDT Authorizing ProviderResult TypeResult StatusFranny Salazar PACLINISYNCFinal ResultPerforming OrganizationAddressCity/State/ZIP CodePhone Number [facility] TB * ALL THYROXINE (T4) FREE (01/16/2025 7:10 AM EDT)ComponentValueRef RangeTest MethodAnalysis TimePerformed AtPathologist SignatureFREE T41.320.76 - 1.46 ng/dLTBHSpecimen (Source)Anatomical Location / LateralityCollection Method / VolumeCollection TimeReceived Time01/16/2025 7:10 AM EDT01/16/2025 7:11 AM EDT Narrative [facility] - 01/16/2025 8:26 AM EDT Authorizing ProviderResult TypeResult StatusFranny Salazar PACLINISYNCFinal ResultPerforming OrganizationAddressCity/State/ZIP CodePhone Number [facility] * (ABNORMAL) ALL LIPID PROFILE (FASTING) (01/16/2025 7:10 AM EDT)ComponentValue Ref RangeTest MethodAnalysis TimePerformed AtPathologist Signature NEDRJFSPLAMAC34<=150 mg/nJTIAKRDARLRRICF313<=200 mg/dLTBHHDL CIBGSZDUSNS28(H) 40 - 60 mg/dLTBHComment: > or =60 mg/dl - LOW CARDIOVASCULAR RISK <40 mg/dl - HIGH CARDIOVASCULAR RISK LDL CHOLESTEROL YTGCTSJYKL86.0mg/dLTBHComment: <100 mg/dl OPTIMAL 100-129 mg/dl NEAR OR ABOVE OPTIMAL 130-159 mg/dl BORDERLINE HIGH 160-189 mg/dl HIGH >190 mg/dl VERY HIGH VLDL DJISDGINGJP20.2mg/dLTBHCHOL HDL RATIO2.4TBHComment: 3.3 - 4.4 ?? LOW RISK 4.4 - 7.1 ?? AVERAGE RISK 7.1 - 11.0 ??MODERATE RISK >11.0 HIGH RISK Specimen (Source)Anatomical Location / LateralityCollection Method / Volume Collection TimeReceived Time01/16/2025 7:10 AM EDT01/16/2025 7:11 AM EDT Narrative [facility] - 01/16/2025 8:01 AM EDT Authorizing ProviderResult TypeResult StatusKaren M Hemmer PACLINISYNCFinal ResultPerforming OrganizationAddressCity/State/ZIP CodePhone Number [facility] * (ABNORMAL) ALL CBC WITH AUTO DIFF (01/16/2025 7:10 AM EDT)ComponentValueRef RangeTest MethodAnalysis TimePerformed AtPathologist SignatureTBH WBC7.04.0 - 11.0 10 3/uLTBHTBH RBC4.264.20 - 5.40 10 6/uLTBHTBH HGB12.712.0 - 16.0 g/dLTBH TBH HCT38.536.0 - 48.0 %TBHTBH MCV90.481.0 - 99.0 fLTBHTBH MCH29.826.7 - 34.0 pgTBHTBH MCHC33.029.9 - 35.2 g/dLTBHTBH RDW14.311.0 - 15.0 %TBHTBH SOM555431 - 450 10 3/uLTBHTBH MPV8.8(L)9.5 - 13.5 [...] EDT Narrative 11/06/2024 11:15 AM EDT [facility] ?[address] ? [place], [place] [address] ? Mammography Report ? Signed ? Patient: SILVIO,АННА V ?MR#: [id number] ?? : 1960 ?Acct:[id number] ?? Age/Sex: 64 / F ?ADM Date: 11/06/ ?? Loc: MAMMO ? Attending Dr: ERIKA ZEE ? Ordering Physician: ERIKA ZEE ? Results: ? Date of Service: 11/06/24 ?Follow Up: ? Procedure(s): MM tomosynthesis screening BI ?? Accession Number(s): [id number] ? cc: ERIKA ZEE ? Patient Name: ? АННА SILVIO ? MR#: [id number] ? : 1960 ? Exam Date: 11/06/2024 [...] Cancers ? None ? LOCATION: ? [facility] ? BREAST COMPOSITION: ? The breasts are [...] By: ?Jose Myers M.D. ? Signed By: ?11/06/24 1115 ? DD/ 1114 ? TD/TT: ? Tin Dipper: Procedure Note Radiology, Radiologist, MD - 11/06/2024 [place] [address] Mammography Report Signed Patient: АННА AMAYA R#: [id number] : 1Acct:[id number] Age/Sex: 64 / FADM Date: 11/06/24 Loc: MAMMO Attending Dr: ERIKA ZEE Ordering Physician: Adrien ZEEults: Date of Service: 11/06/24Follow Up: Procedure(s): MM tomosynthesis screening BI Accession Number(s): [id number] cc: YAYOERIKA Ibanez Patient Name: АННА AMAYA MR#: [id number] : 1960 Exam Date: 11/06/2024 Ordering Doctor: [...] Treatments None Family Cancers None LOCATION: [facility] BREAST COMPOSITION: The breasts are almost entirely [...] M.D. Signed By:11/06/24 1115 DD/ 1114 TD/TT: Tin Dipper: Authorizing ProviderResult TypeResult StatusErika Quiroza MDCLINISYNC IMAGING Final Result * Colonoscopy (11/21/2018 12:00 PM EDT)Anatomical RegionLateralityModality EndoscopySpecimen (Source)Anatomical Location / LateralityCollection Method / VolumeCollection TimeReceived Time11/21/2018 12:00 PM EDT Narrative 11/21/2018 12:00 PM EDT PERFORMED AT [facility] LOCATION:[id number] Normal Procedure Note CONVERSION, GENERIC - 09/07/2022 PERFORMED AT [facility] LOCATION:[id number] Normal Authorizing ProviderResult TypeResult StatusErika Zee MDENDOSCOPY PROCEDURE ORDERABLESFinal Result from Last 3 Months or Most Recently Relevant to Health Maintenance Insurance [address] [place] [address] Care Teams Team MemberRelationshipSpecialtyStart DateEnd Date Erika Zee MD [address] [facility] [address] [place] [address] PCP - GeneralFamily Medicine11/15/22 Humera Fontenot LPN [address] [facility] [address] [place] [address] 07/12/24
--- OUTSIDE RECORDS SUMMARY | 2025-03-19 09:36 | XMS_ITS | CCD ---
Author Organization [facility] Care Team Providers Care Conservation Officer Name Role Phone YAYO, DR VILLEGAS Primary [...] Zee MD Primary Care Provider Juan Carlos ICE DELIVERY DRIVER, Karolyn Thomas Unavailable [phone] Bryon LEÓN, Dorita Orosco Unavailable Nelly Zee MD Primary Care Provider Sivakumar Juárez MD Attending Provider Monday Bina PULIDO Unavailable Jerry LUNA, Rosa Unavailable Loi Camara MD, Donaldo Unavailable Unavailabl e Humera Fontenot LPN Unavailable Unavailable Asaad, Sivakumar Attending Unavailable Franck Imad Admitting Unavailable YayoNelly barton Primary Care Unavailable Po PULIDO, Humera Unavailable Nelly Zee MD Primary Care Provider Jhoantan Trinidad APRN Attending Provider FRANNY MCDERMOTT Attending Unavailable FRANNY MCDERMOTT Attending Unavailable FRANNY MCDERMOTT Attending Unavailable FRANNY MCDERMOTT Attending Unavailable FRANNY MCDERMOTT Attending Unavailable Al Jax, Donaldo Attending Unavailable Al Jax, Donaldo Referring Unavailable Donaldo Mills Attending Unavailable Loi Camara, Donaldo Referring Unavailable Juan Carlos LEÓN, Karolyn Thomas Unavailable Bryon LEÓN, Dorita C Unavailable Elizabeth LUNA, Naomie Unavailable Monday PROGRAM MANUFACTURING LEADER, Bina Unavailable Rosa Edwards RN Unavailable Loi Camara MD, Donaldo Unavailable Unavailabl e Allergies Allergy ClassificationReported Allergen(s)Allergy TypeDate of OnsetReaction(s) Facility (7 sources)DULoxetineDrug Cuxhmsi64-37-7166[facility] Work Phone: Medications Current Medications MedicationDrug Class(es)DatesSig (Normalized)Sig (Original)[id number] 200 actuat albuterol 0.09 mg/actuat metered dose inhaler (20 sources)beta2-Adrenergic AgonistStart: 42-87-8594lmzu 2 puff(s) by inhalation every four hours for wheezingalbuterol HFA (Ventolin HFA) 90 mcg/act inhaler Indications: Moderate persistent asthma without complication (HCC) Inhale 2 puffs every 4 (four) hours if needed for wheezing or shortness of breath 18g 5 02/08/2024 ActiveStart: 62-50-4076nrcl 2 puff(s) by inhalation every four hours for wheezingalbuterol HFA (Ventolin HFA) 90 mcg/act inhaler Indications: Moderate persistent asthma without complication (CMS/HCC) Inhale 2 puffs every 4 (four) hours if needed for wheezing or shortness of breath 18 g 5 10/30/2023 ActiveStart: 18-59-3986uccg 2.5 mg by inhalation every four hours as neededAlbuterol Sulfate 1.25 mg/3 mL Solution For Nebulization Active 2.5 MG INHALATION Q4H as needed forAllergic Reaction June 06, 2019 1:00am Complies with drug therapybusPIRone hydrochloride 5 mg oral tablet (19 sources)Start: 45-52-9038ihak 1 tablet by mouth twice daily as needed for anxietybusPIRone (Buspar) 5 MG tablet Indications: Stress reaction Take 1 tablet (5 mg) by mouth 2 (two) times a day as needed (Anxiety) 60 tablet 2 06/10/2024 Activechlorhexidine gluconate 1.2 mg/ml mouthwash (20 sources)Start: 01-03-2024 End: 16-20-7992oayvvbhladdzw (Peridex) 0.12 % solution Use 15 mL in the mouth or throat if needed for wound care 01/03/2024 11/12/2024 Discontinued (Other) cyclobenzaprine hydrochloride 10 mg oral tablet (16 sources)Muscle Relaxant End: 52-28-8244fxxp 1 tablet by mouth three times daily [...] mg oral tablet (3 sources)Histamine-1 Receptor AntagonistStart: 13-96-2149nqzb 1 tablet by mouth every eight hours as neededDiphenhydramine Hcl (Benadryl Allergy) 25 mg Tablet Active 25 MG PO Q8H as needed for Allergy Symptoms June 06, 2019 1:00am Complies with drug therapyDULoxetine 30 mg delayed release oral capsule (4 sources)Serotonin and Norepinephrine Reuptake InhibitorStart: 12-17-2024 End: 82-75-8237qndv 1 capsule by mouth once dailyDULoxetine (Cymbalta) [address] capsule Indications: Other chronic pain Take 1 capsule (30 mg) by mouth Daily Do not crush or chew. 30 capsule 2 12/17/2024 01/21/2025 Discontinued (Side effects)Start: 35-50-0604cwrl 1 capsule by mouth once dailyDULoxetine (Cymbalta) [address] capsule Indications: Other chronic pain Take 1 capsule (30 mg) by mouth Daily Do not crush or chew. 30 capsule 2 11/13/2024 ActivehydroCHLOROthiazide 25 mg oral tablet (20 sources)Thiazide DiureticStart: 89-41-6657zplf 1 tablet by mouth once daily Hydrochlorothiazide 25 mg tablet Active 25 MG PO Daily June 06, 2019 1:00am Complies with drug therapylevothyroxine sodium 0.05 mg oral tablet (20 sources)l-ThyroxineStart: 44-14-9187bthr 1 tablet by mouth in the morning levothyroxine (Synthroid, Levoxyl) 50 MCG tablet Indications: Acquired hypothyroidism Take 1 tablet(50 mcg) by mouth in the morning. Take on an empty stomach. 90 tablet 01/16/2025 ActiveStart: 80-25-1933pqws 1 tablet by mouth once dailyLevothyroxine 25 mcg tablet Active 25 MCG PO Daily May 06, 2024 1:00am Complies with drug therapyStart: 63-15-7082puxb 1 tablet by mouth in the morninglevothyroxine [...] mg oral tablet (20 sources)Leukotriene Receptor AntagonistStart: 96-23-2648cjbh 1 tablet by mouth once dailyMontelukast 10 mg tablet Active 10 MG PO Daily June 06, 2019 1:00am Complies with drug therapyMultiple Vitamin (multivitamin) tablet (10 sources)take 1 tablet by mouth once dailyMultiple Vitamin (multivitamin) tablet Take 1 tablet by mouth Daily Activeomeprazole 40 mg delayed release oral capsule (6 sources)Proton Pump InhibitorStart: 76-53-7850cfie 1 capsule by mouth in the morningomeprazole (PriLOSEC) [address] capsule Take 40 mg by mouth in the morning and 40 mg before bedtime.12/31/2024 Activepotassium chloride 20 meq extended release oral tablet (20 sources)Start: 34-96-0217isqs 1 tablet by mouth in the morningpotassium chloride CR (K-Tab) 20 MEQ ER tablet Indications: Hypokalemia Take 1 tablet (20 mEq) by mouth in the morning and 1 tablet (20 mEq) before bedtime. Do not crush, chew, or split.. 06/14/2024 ActiveStart: 01-16-2024 End: 78-61-6195bkws 1 tablet by mouth once dailypotassium chloride CR (K-Tab) 20 MEQ ER tablet Indications: Hypokalemia Take 1 tablet (20 mEq) by mouth Daily Do not crush, chew, or split. 90 tablet 3 05/29/2024 ActiveStart: 08-13-2023 End: 26-54-8546myvx 1 tablet by mouth once dailypotassium chloride CR (K-Tab) 20 MEQ ER tablet take 1 tablet by mouth once daily for 5 days 08/13/2023 01/10/2024 Discontinued (Other)predniSONE 10 mg oral tablet (2 sources)Start: 08-20-2024 End: 83-73-0452jfjm 1 tablet by mouth three times daily, [...] mg oral tablet (20 sources)HMG-CoA Reductase InhibitorStart: 90-21-2203mnvu 1 tablet by mouth once dailyRosuvastatin (Crestor) 10 mg tablet Active 10 MG PO Daily May 16, 2024 1:00am Complies with drug therapyvitamin a 2.4 mg oral capsule (2 sources)Vitamin Avitamin A 2,400 mcg capsule - Active Completed/Discontinued Medications MedicationDrug Class(es)DatesSig (Normalized)Sig (Original)ibuprofen 800 mg oral tablet (3 sources)Nonsteroidal Anti-inflammatory DrugStart: 01-03-2024 End: 85-54-9036imnw 1 tablet by mouth every eight hours as neededibuprofen 800 MG tablet Take 800 mg by mouth every 8 (eight) hours if needed 01/03/2024 01/10/2024 Discontinued (Other)methylPREDNISolone 4 mg oral tablet (3 sources)CorticosteroidStart: 01-03-2024 End: 67-28-2265ykjv 1 tablet by mouth oncemethylPREDNISolone (Medrol Dospak) 4 MG tablets Take 4 mg by mouth 1 (one) time See administration instructions 01/03/2024 01/10/2024 Discontinued (Other)pantoprazole 40 mg delayed release oral tablet (20 sources)Proton Pump InhibitorStart: 06-06-2019 End: 87-62-3981saht 1 tablet by mouth once dailyPantoprazole 40 mg tablet,delayed release (DR/EC) Discontinued 40 MG PO Daily 90 90 3 June 14, 2024 10:08am December 13, 2024 1:22pm Problems Active Problems Problem ClassificationProblemDateDocumented DateEpisodic/ChronicAbdominal hernia (3 sources)Hiatal hernia; Translations: [Diaphragmatic hernia without obstruction or gangrene]85-20-2151FyvrgymlYkdwfcawrnxwwm/social admission (4 sources)Patient encounter status; Translations: [Other specified counseling] 71-60-4789OstjzajdLpsbdpk disorders (20 sources)Generalized anxiety disorder; Translations: [Generalized anxiety disorder]Onset: 162495-53-2455CpqxcliRfxooo (20 sources)Uncomplicated moderate persistent asthma; Translations: [Moderate persistent asthma, uncomplicated]Onset: 942688-75-7876IzldiudGlgviexvs and vision defects (18 sources)Generalized contraction of visual field, bilateral; Translations: [Generalized visual field contraction or constriction]EpisodicCataract (20 sources)Presence of intraocular lens; Translations: [Age-related nuclear cataract, bilateral]Onset: 63-45-8276XdjhafdTeganfk kidney disease (20 sources)Chronic kidney disease stage 3A ; Translations: [Stage 3a chronic kidney disease (HCC)]Onset: 11-14-2022 Resolved: 741338-87-2694LhyfwuqQnagllwso of lipid metabolism (20 sources)Raised low density lipoprotein cholesterol; Translations: [Pure hypercholesterolemia, unspecified]Onset: 593231-66-8584TvgzgoaQatofffczx disorders (20 sources)Gastroesophageal reflux disease; Translations: [Gastro-esophageal reflux disease without esophagitis]Onset: 501956-92-1372MswtidzFkrydqpda hypertension (20 sources)Benign hypertension; Translations: [Essential (primary) hypertension]Onset: 376181-17-0378YwiwedvTmivtbeo; including migraine (20 sources)Tension-type headache; Translations: [Tension-type headache, unspecified, not intractable]Onset: 496235-64-0453JphnqjxWrvbcobmsladx and screening for infectious disease (2 sources)Vaccination needed; Translations: [Encounter for immunization] 11-32-8810VhkdevkcActne eye disorders (14 sources)Other vitreous opacities, bilateralChronicOther eye disorders (4 sources)Vitreous degeneration, bilateralChronicOther eye disorders (4 sources)Vitreous degenerationChronicOther gastrointestinal disorders (2 sources)H/O: gastrointestinal disease; Translations: [Personal history of other diseases of the digestive system]59-90-3173GjdxockkIaqfh lower respiratory disease (2 sources)Chronic cough; Translations: [Chronic cough]33-84-6768GffsdfjdJmffi nervous system disorders (20 sources)Chronic pain; Translations: [Other chronic pain]Onset: 11-14-2022 15-68-4178CkxaozkYdwtj nervous system disorders (2 sources)Paresthesia of left lower limb; Translations: [Paresthesia of skin] 65-98-3740MaizelmnKotym non-traumatic joint disorders (20 sources)Joint ankylosis of the shoulder region; Translations: [Ankylosis, right shoulder]Onset: 565336-59-1279VcapsbuCydkw non-traumatic joint disorders (2 sources)Hip pain; Translations: [Pain in left hip]97-43-7755CcufzhnsSrjnt screening for suspected conditions (not mental disorders or infectious disease) (4 sources)Encounter for screening mammogram for malignant neoplasm of breast; Translations: [ENC SCR MAMMO MALIG NEOPLASM BREAST]Onset: 90-08-5087Ckbhodkh Other upper respiratory disease (20 sources)Seasonal allergy; Translations: [Other seasonal allergic rhinitis] Onset: 569357-99-5009LxrreqsQttkj upper respiratory disease (2 sources)Hoarse; Translations: [Dysphonia]92-90-4868QaotxhzfTgpmpqtzyi and visceral atherosclerosis (2 sources)Atherosclerosis of aorta; Translations: [Atherosclerosis of aorta] 80-73-6770AicmhosRfbiunyf codes; unclassified (4 sources)Obstructive sleep apnea (adult) (pediatric); Translations: [OBSTRUCTIVE SLEEP APNEA]Onset: 72-41-8582KpzgicnKktkyfil codes; unclassified (20 sources)Obstructive sleep apnea syndrome; Translations: [Obstructive sleep apnea (adult) (pediatric)]Onset: 778954-49-0039XxigvlhVargyvot codes; unclassified (20 sources)Dependence on continuous positive airway pressure ventilation; Translations: [Dependence on other enabling machines and devices]Onset: 602787-03-2763WkmmcsqByqcucv detachments; defects; vascular occlusion; and retinopathy (20 sources)Retinitis pigmentosa; 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] Onset: 02-05-2018 Resolved: 184342-40-3240CiaxqdeWfulgcbarl arthritis and related disease (2 sources)Rheumatoid arthritis; Translations: [Rheumatoid arthritis, unspecified]66-94-1619KgfbnyeBzrrybzfvlu; intervertebral disc disorders; other back problems (20 sources)Inflammation of sacroiliac joint; Translations: [Sacroiliitis, not elsewhere classified]Onset: 414978-10-2250JrtqtktGgfuhps and strains (2 sources)Low back strain; Translations: [Strain of muscle, fascia and tendon of lower back, initial encounter]44-58-6774CwqplmzeYsxovqx (2 sources)Near syncope; Translations: [Syncope and collapse]90-15-4810Cqhqrftl Thyroid disorders (20 sources)Acquired hypothyroidism; Translations: [Hypothyroidism, unspecified] Onset: 930222-40-3417TbfgzvuRdzfrzbvakkd (3 sources)CONTACT W/AND (SUSP) EXPOS COVID-19; Translations: [CONTACT W/AND (SUSP) EXPOS COVID-19]Onset: 01-27-2021 Past or Other Problems Problem ClassificationProblemDateDocumented DateEpisodic/ChronicFluid and electrolyte disorders (20 sources)Hypokalemia; Translations: [Hypokalemia]Onset: EpisodicMood disorders (20 sources)Mood disordersOnset: 01-06-2024 Resolved: 060261-39-0066Qfzwgpouz of unspecified nature or uncertain behavior (20 sources)Thrombocytosis; Translations: [Thrombocytosis]Onset: 11-14-2022 43-48-9484JgmixnjdJobqy gastrointestinal disorders (20 sources)Dysphagia; Translations: [Dysphagia, unspecified]Onset: 11-14-2022 63-28-7155HbnvvpymKsunu gastrointestinal disorders (1 source)Dysphagia, unspecified; Translations: [Dysphagia, unspecified]Onset: 22-22-6269IgkuqpngBgjts non-traumatic joint disorders (20 sources)Pain in right knee; Translations: [Pain in joint, lower leg]Onset: 978285-04-1798NbtmpeurWepxg nutritional; endocrine; and metabolic disorders (20 sources)Body mass index 25-29 - overweight; Translations: [Overweight]Onset: 117020-53-8636WrfoavvhIauuwygs codes; unclassified (20 sources)Difficulty sleeping ; Translations: [Sleep disorder, unspecified] Onset: 004237-28-0779JzcwwncqTejxstll codes; unclassified (2 sources)Other problems related to lifestyle; Translations: [Other problems related to lifestyle]98-52-2545VrzguhvqQqwpezssnzqo (1 source)CONTACT W/AND (SUSP) EXPOS COVID-19; Translations: [CONTACT W/AND (SUSP) EXPOS COVID-19]Onset: 46-57-7349Zymfjhddpwlp (2 sources)Pigmrntary retinal dystrophy (chief complaint)Onset: 02-15-2023 Unclassified (2 sources)pigmentary retinal dystrophy (chief complaint) decreased vision (chief complaint)Onset: 44-89-1360Kuuudgmsedrd (2 sources)pigmentary retinal dystrophy (chief complaint) decrease in vision (chief complaint)Onset: 74-96-6028Fsjwansxqres (2 sources)pigmentary retinal dystrophy (chief complaint) flashes (chief complaint)Onset: 06-81-3708Ipuommelkjsu (2 sources)pigmentary retinal dystrophy (chief complaint) stable vision (chief complaint)Onset: 76-55-8929Yzellqwezbgt (2 sources)Pigmentary Retinal Dystrophy (chief complaint) flashes (chief complaint) hard time adjusting from light to dark (chief complaint)Onset: 44-99-1329Niigolztyend (4 sources)RP (chief complaint) decreased vision (chief complaint)Onset: 03-12-2014 Resolved: 04-49-6692Gxbzheofxhne (2 sources)RP (chief complaint) decreased vision (chief complaint) squigle white lights (chief complaint)Onset: 11-19-2014 Results Test NameValueInterpretationReference RangeFacilityNo Panel InformationOrdered By: Radiologist Radiology on 63-32-9141[facility] Work Phone: No Panel Informationon 63-79-7994Vhodpocko Study observation (narrative)NOMS HealthcareXR KNEE STANDING BIon 57-19-4188[place] [address] XRay Report Signed Patient: YOUSUF AMAYA V MR#: [id number] : 1960 Acct:[id number] Age/Sex: 64 / F ADM Date: 01/21/25 Loc: [facility] Attending Dr: FRANNY MCDERMOTT Ordering Physician: FRANNY MCDERMOTT Date of Service: 01/21/25 Procedure(s): XR knee standing BI Accession Number(s): [id number] cc: NELLY ZEE ; FRANNY MCDERMOTT [place] [id number] Patient Name: YOUSUF AMAYA MRN: [id number] date: 1960 Sex: F Assigned Patient Location: [facility] Current Patient Location: [facility] Accession/Order Number: [id number] Exam Date: 01/21/2025 09:30 Report Date: 01/21/2025 [...] Mayberry M.D. 01/21/2025 10:31 AM Dictation Location: [place] [address] Electronically authenticated by: [id number] Y Date: 01/21/2025 10:31 Dictated By: Franny Mayberry M.D. Signed By: 01/21/25 1034 DD/ 1031 TD/TT: Acute Care Assistant:TBHRadiology, Radiologist, MD - 01/21/2025 [place] [address] XRay Report Signed Patient: YOUSUF AMAYA V MR#: [id number] : 1960 Acct:[id number] Age/Sex: 64 / F ADM Date: 01/21/25 Loc: RAD Attending Dr: FRANNY MCDERMOTT Ordering Physician: FRANNY MCDERMOTT Date of Service: 01/21/25 Procedure(s): XR knee standing BI Accession Number(s): [id number] cc: NELLY ZEE ; FRANNY MCDERMOTT [address] [address] Patient Name: YOUSUF AMAYA MRN: [id number] date: 1960 Sex: F Assigned Patient Location: [facility] Current Patient Location: [facility] Accession/Order Number: [id number] Exam Date: 01/21/2025 09:30 Report Date: 01/21/2025 [...] Mayberry M.D. 01/21/2025 10:31 AM Dictation Location: [place] [address] Electronically authenticated by: [id number] Y Date: 01/21/2025 10:31 Dictated By: Franny Mayberry M.D. Signed By: 01/21/25 1034 DD/ 1031 TD/TT: Acute Care Assistant: ANDREINA Galvin Knee - bilateral 4 Viewson 94-03-8548[place]zy[place] [address] XRay Report Signed Patient: YOUSUF AMAYA V MR#: [id number] : 1960 Acct:[id number] Age/Sex: 64 / F ADM Date: 01/21/25 Loc: RAD Attending Dr: FRANNY MCDERMOTT Ordering Physician: FRANNY MCDERMOTT Date of Service: 01/21/25 Procedure(s): XR knee HOLLY 4V Accession Number(s): [id number] cc: NELLY ZEE ; FRANNY MCDERMOTT [place] [address] Patient Name: YOUSUF AMAYA MRN: [id number] date: 1960 Sex: F Assigned Patient Location: [facility] Current Patient Location: [facility] Accession/Order Number: [id number] Exam Date: 01/21/2025 09:30 Report Date: 01/21/2025 [...] Mayberry M.D. 01/21/2025 10:31 AM Dictation Location: [place] [address] Electronically authenticated by: [id number] Y Date: 01/21/2025 10:31 Dictated By: Franny Mayberry M.D. Signed By: 01/21/25 1034 DD/ 1031 TD/TT: Acute Care Assistant:KYLEadiology, Radiologist, - 01/21/2025 [place] [address] XRay Report Signed Patient: YOUSUF AMAYA V MR#: [id number] : 1960 Acct:[id number] Age/Sex: 64 / F ADM Date: 01/21/25 Loc: [facility] Attending Dr: FRANNY MCDERMOTT Ordering Physician: FRANNY MCDERMOTT Date of Service: 01/21/25 Procedure(s): XR knee HOLLY 4V Accession Number(s): [id number] cc: NELLY ZEE ; FRANNY MCDERMOTT [place] [id number] Patient Name: YOUSUF AMAYA MRN: [id number] date: 1960 Sex: F Assigned Patient Location: [facility] Current Patient Location: [facility] Accession/Order Number: [id number] Exam Date: 01/21/2025 09:30 Report Date: 01/21/2025 [...] Mayberry M.D. 01/21/2025 10:31 AM Dictation Location: [place] [address] Electronically authenticated by: [id number] Y Date: 01/21/2025 10:31 Dictated By: Franny Mayberry M.D. Signed By: 01/21/25 1034 DD/ 1031 TD/TT: Acute Care Assistant: ANDREINA Cohen CBC WITH AUTO DIFFon 91-22-0143TBYMAAZZP ABSOLUTE BVGT9TAHX HealthcareBasophils/100 WBC (Bld)0.4 %0.2 - 2.0 %NOMS HealthcareEosinophils/100 WBC (Bld)2.3 %0.9 - 7.0 %NOM HealthcareErythrocyte distribution width (RBC) [Ratio]14.3 %11.0 - 15.0 %NOM HealthcareHematocrit (Bld) [Volume fraction]38.5 %36.0 - 48.0 %NOM HealthcareHemoglobin (Bld) [Mass/Vol]12.7 g/dL12.0 - 16.0 g/dLNOCT HealthcareIMMATURE GRANULOCYTES ABS AUTO0.01NOCT HealthcareImmature granulocytes/100 WBC (Bld)0.1 %0.0 - 0.5 %[facility] HealthcareInterpretation and review of laboratory resultsAbnormalNOCT HealthcareLYMPHOCYTES ABSOLUTE AUTO2.3 NOM HealthcareLymphocytes/100 WBC (Bld)33.2 %20.5 - 60.0 %[facility]H (RBC) [Entitic mass]29.8 pg26.7 - 34.0 pgNOMissouri Baptist Hospital-SullivanHC (RBC) [Mass/Vol]33 g/dL29.9 - 35.2 g/dLBarnes-Jewish West County HospitalV (RBC) [Entitic vol]90.4 fL81.0 - 99.0 fL NOM HealthcareMONOCYTES ABSOLUTE AUTO0.5NOCT HealthcareMonocytes/100 WBC (Bld) 7.3 %1.7 - 12.0 %NOM HealthcareNEUTROPHILS ABSOLUTE UFTA7GYDY Healthcare Neutrophils/100 WBC (Bld)56.7 %43.0 - 75.0 %NOM HealthcarePlatelet mean volume (Bld) [Entitic vol]8.8 fLLow9.5 - 13.5 fLNOPike County Memorial HospitalTB EO #0.2NOMS HealthcareTBH QGL745GSSI HealthcareTBH RBC4.26NOMS HealthcareTBH GHJ3MZEH HealthcareCLINISYNCNOMS HealthcareXR HIP LT MIN 2Von 72-54-6[address] [address] XRay Report Signed Patient: YOUSUF AMAYA V MR#: [id number] : 1960 Acct:[id number] Age/Sex: 64 / F ADM Date: 11/12/24 Loc: LAB Attending Dr: FRANNY MCDERMOTT Ordering Physician: FRANNY MCDERMOTT Date of Service: 11/12/24 Procedure(s): XR hip LT min 2V Accession Number(s): [id number] cc: NELLY ZEE ; FRANNY MCDERMOTT [place] [address] Patient Name: YOUSUF AMAYA MRN: [id number] date: 1960 Sex: F Assigned Patient Location: LAB Current Patient Location: LAB Accession/Order Number: [id number] Exam Date: 11/12/2024 10:05 Report Date: 11/12/2024 [...] Jr., D.O. 11/12/2024 10:06 AM Dictation Location: [place] [address] Electronically authenticated by: [id number] Y Date: 11/12/2024 10:06 Dictated By: Lew Rosario M.D. Signed By: 11/12/24 1008 DD/ 1006 TD/TT: Acute Care Assistant:KYLEadiologcandice, Radiologist, - 11/12/2024 The [place] [address] XRay Report Signed Patient: YOUSUF AMAYA V MR#: [id number] : 1960 Acct:[id number] Age/Sex: 64 / F ADM Date: 11/12/24 Loc: LAB Attending Dr: FRANNY MCDERMOTT Ordering Physician: FRANNY MCDERMOTT Date of Service: 11/12/24 Procedure(s): XR hip LT min 2V Accession Number(s): [id number] cc: NELLY ZEE ; FRANNY MCDERMOTT [place] [address] Patient Name: YOUSUF AMAYA MRN: [id number] date: 1960 Sex: F Assigned Patient Location: LAB Current Patient Location: LAB Accession/Order Number: [id number] Exam Date: 11/12/2024 10:05 Report Date: 11/12/2024 [...] Jr., D.O. 11/12/2024 10:06 AM Dictation Location: [place] [address] Electronically authenticated by: [id number] Y Date: 11/12/2024 10:06 Dictated By: Lew Rosario M.D. Signed By: 11/12/24 1008 DD/ 1006 TD/TT: Acute Care Assistant: ANDREINA HealthcareRadiology Study observation (narrative)NOMS HealthcareXR HIP LT MIN 2VOrdered By: Radiologist Radiology on 26-36-1415BQ[facility] Work Phone: mm TOMOSYNTHESIS SCREENING BIon 95-07-7101Vzi[place], [place] [address] Mammography Report Signed Patient: YOUSUF AMAYA V MR#: [id number] : 1960 Acct:[id number] Age/Sex: 64 / F ADM Date: 11/06/24 Loc: MAMMO Attending Dr: NELLY ZEE Ordering Physician: NELLY ZEE Results: Date of Service: 11/06/24 Follow Up: Procedure(s): MM tomosynthesis screening BI Accession Number(s): [id number] cc: NELLY ZEE Patient Name: YOUSUF AMAYA MR#: [id number] : 1960 Exam Date: 11/06/2024 Ordering Doctor: [...] Treatments None Family Cancers None LOCATION: [facility] BREAST COMPOSITION: The breasts are almost [...] Signed By: 11/06/24 1115 DD/ 1114 TD/TT: Acute Care Assistant:TBHRadiology, RadiologistMD - 11/06/2024 [place] [address] Mammography Report Signed Patient: YOUSUF AMAYA V MR#: [id number] : 1960 Acct:[id number] Age/Sex: 64 / F ADM Date: 11/06/24 Loc: MAMMO Attending Dr: NELLY ZEE Ordering Physician: NELLY ZEE Results: Date of Service: 11/06/24 Follow Up: Procedure(s): MM tomosynthesis screening BI Accession Number(s): [id number] cc: YAYOLANDY BartonMILAN Patient Name: YOUSUF AMAYA MR#: [id number] : 1960 Exam Date: 11/06/2024 Ordering Doctor: [...] Treatments None Family Cancers None LOCATION: [facility] BREAST COMPOSITION: The breasts are almost [...] Signed By: 11/06/24 1115 DD/ 1114 TD/TT: Acute Care Assistant: ANDREINA HealthcareRadiology Study observation (narrative)NOMS HealthcareMM TOMOSYNTHESIS SCREENING BIOrdered By: Radiologist Radiology on 97-04-2065YQID [facility] Work Phone: all BASIC METABOLIC PANELon 71-93-8439Ygxpm gap [Moles/Vol]8.6 mmol/LNOMS HealthcareCalcium [Mass/Vol]9.3 mg/dL8.5 - 10.1 mg/dL N[facility]S HealthcareChloride [Moles/Vol]103 mmol/L98 - 107 mmol/LNOMS HealthcareCO2 [Moles/Vol]31.7 mmol/L21.0 - 32.0 mmol/LNOMS HealthcareCreatinine [Mass/Vol]1.29 mg/dLHigh0.55 - 1.02 mg/dLNOMS HealthcareGFR/1.73 sq M.predicted CKD-EPI (S/P/Bld) [Vol rate/Area]51Low>=60 mL/min/1.73m 2NOMS HealthcareGlucose [Mass/Vol]119 mg/uBAuuw45 - 106 mg/dLNOMS HealthcareInterpretation and review of laboratory resultsAbnormalNOMS HealthcarePotassium [Moles/Vol]3.3 mmol/LLow3.5 - 5.1 mmol/LNOMS HealthcareSodium [Moles/Vol]140 mmol/L136 - 145 mmol/LNOMS HealthcareTBH EGFR-NON AF JLYDNMZE20Fuw>=60 mL/min/1.73m 2NOMS HealthcareUrea nitrogen [Mass/Vol]19 mg/dLHigh7.0 - 18.0 mg/dLNOMS HealthcareUrea nitrogen/Creatinine [Mass ratio]14.7 mg/mgNOMS HealthcareCLINISYNCNOMS HealthcareXR KNEE HOLLY [address]Von 86-09-9701[place], [place] [address] XRay Report Signed Patient: YOUSUF AMAYA V MR#: [id number] : 1960 Acct:[id number] Age/Sex: 63 / F ADM Date: 06/14/24 Loc: LAB Attending Dr: FRANNY MCDERMOTT Ordering Physician: FRANNY MCDERMOTT Date of Service: 06/14/24 Procedure(s): XR knee HOLLY 3V Accession Number(s): [id number] cc: NELLY ZEE ; FRANNY MCDERMOTT [address] [address] Patient Name: YOUSUF AMAYA MRN: [id number] date: 1960 Sex: F Assigned Patient Location: LAB Current Patient Location: LAB Accession/Order Number: [id number] Exam Date: 06/14/2024 13:05 Report Date: 06/14/2024 [...] Franny Mayberry M.D.06/14/2024 1:13 PM Dictation Location: [place] [address] Electronically authenticated by: [id number] Y Date: 06/14/2024 13:13 Dictated By: Franny Mayberry M.D. Signed By: 06/14/24 1316 DD/ 1313 TD/TT: Acute Care Assistant:TBHRadiology, Radiologist, MD - 06/14/2024 [facility] [place] [address] XRay Report Signed Patient: YOUSUF AMAYA V MR#: [id number] : 1960 Acct:[id number] Age/Sex: 63 / F ADM Date: 06/14/24 Loc: LAB Attending Dr: FRANNY MCDERMOTT Ordering Physician: FRANNY MCDERMOTT Date of Service: 06/14/24 Procedure(s): XR knee HOLLY 3V Accession Number(s): [id number] cc: NELLY ZEE KAREN M The [address] [address] Patient Name: YOUSUF AMAYA MRN: [id number] date: 1960 Sex: F Assigned Patient Location: LAB Current Patient Location: LAB Accession/Order Number: [id number] Exam Date: 06/14/2024 13:05 Report Date: 06/14/2024 [...] Franny Mayberry M.D.06/14/2024 1:13 PM Dictation Location: [facility] Electronically authenticated by: [id number] Y Date: 06/14/2024 13:13 Dictated By: Franny Mayberry M.D. Signed By: 06/14/24 1316 DD/ 1313 TD/TT: Acute Care Assistant: [facility]ITALFel[facility] Memorial HospitalRadiology Study observation (narrative)[facility] KNEE HOLLY 3VOrdered By: Radiologist Radiology on 50-82-1584KKGEResearch Psychiatric Center Work Phone: Loo 05-16-2024 Specimen: [id number] Received: 05/16/24 Status: LALY Dougherty Num: [id number] Spec Type: Surgical Subm Dr: Sivakumar Juárez MD Tissues: A Soft Tissue Mass - Biopsy (HIATAL HERNIA POLYP) B Gastric Biopsy (GASTRIC BX) C Esophagus Biopsy (ESOPHAGUS BX) Procedures: HE/8, Gross/Micro L5, Gross/Micro L4/2, H PYLORI/2 Age/ Patient Sex Location Account Attending Physician Yousuf Amaya V 63/F [id number] Sivakumar Juárez MD SPEC NUM: [id number] RECD: 05/16/24 STATUS: LALY DOUGHERTY NUM: [id number] KARAN: 05/16/[address] [facility] [address]: Sivakumar Juárez MD ENTERED: 05/16/24 [facility] DR: DAVID TYPE: Surgical DEPT: S ENTERED BY: [id number] RECV BY: [id number] ORDERED: HE/8, Gross/Micro L5, Gross/Micro L4/2, H [...] [id number] Received: 05/16/24 Status: LALY Dougherty Num: [id number] Spec Type: Surgical Subm Dr: Sivakumar Juárez MD Tissues: A Soft Tissue Mass - Biopsy (HIATAL HERNIA POLYP) B Gastric Biopsy (GASTRIC BX) C Esophagus Biopsy (ESOPHAGUS BX) Procedures: HE/8, Gross/Micro L5, Gross/Micro L4/2, H PYLORI/2 Patient: Yousuf Amaya V [id number] (Continued) Specimen: [id number] Received: 05/16/24 (Continued) Signed (signature on file) Allison Chi MD 05/20/24 8390 Specimen: [id number] Received: 05/16/24 Status: LALY Dougherty Num: [id number] Spec Type: Surgical Subm Dr: Sivakumar Juárez MD Tissues: A Soft Tissue Mass - Biopsy (HIATAL HERNIA POLYP) B Gastric Biopsy (GASTRIC BX) C Esophagus Biopsy (ESOPHAGUS BX) Procedures: HE/8, Gross/Micro L5, Gross/Micro L4/2, H PYLORI/2 Patient: Yousuf Amaya Kenna [id number] (Continued) Specimen: [id number] Received: 05/16/24 (Continued) Gross Description [...] in greatest dimension tissue bits. (1, ns, I76-455 B)J Part See is received in formalin labeled with the patients name, date of , and esophagus BX are 2 pale mac, focally erythematous, feathery, 0.1 to 0.3 cm in greatest dimension tissue bits. The specimen is entirely submitted in a single cassette. (1, ns, I70-510 C) CPT Codes 37694r0, 81352 Specimen: [id number] Received: 05/16/24 Status: ANGELIQUEGolden Farhat Num: [id number] Spec Type: Surgical Subm Dr: Sivakumar Juárez MD Tissues: A Soft Tissue Mass - Biopsy (HIATAL HERNIA POLYP) B Gastric Biopsy (GASTRIC BX) C Esophagus Biopsy (ESOPHAGUS BX) Procedures: HE/8, Gross/Micro L5, Gross/Micro L4/2, H PYLORI/2 Patient: Yousuf Amaya V F01 (more content not included)...NormalThe Firelands Physician GroupALL BASIC METABOLIC PANELon 45-08-6080Axzws gap [Moles/Vol]14.2 mmol/LNOMS HealthcareCalcium [Mass/Vol]9.4 mg/dL8.5 - 10.1 mg/dL NOMS HealthcareChloride [Moles/Vol]101 mmol/L98 - 107 mmol/LNOMS HealthcareCO2 [Moles/Vol]26.3 mmol/L21.0 - 32.0 mmol/LNOMS HealthcareCreatinine [Mass/Vol]1.18 mg/dLHigh0.55 - 1.02 mg/dLNOCT HealthcareGFR/1.73 sq M.predicted CKD-EPI (S/P/Bld) [Vol rate/Area]56Low>=60 mL/min/1.73m 2NOMS HealthcareGlucose [Mass/Vol]108 mg/gQWvzt65 - 106 mg/dLNOCT HealthcareInterpretation and review of laboratory resultsAbnormalNOMS HealthcarePotassium [Moles/Vol]3.5 mmol/L3.5 - 5.1 mmol/LNOMS HealthcareSodium [Moles/Vol]138 mmol/L136 - 145 mmol/LNOMS HealthcareTBH EGFR-NON AF LSNKODIP43Jon>=60 mL/min/1.73m 2NOMS HealthcareUrea nitrogen [Mass/Vol]17.0 mg/dL7.0 - 18.0 mg/dLNOCT HealthcareUrea nitrogen/Creatinine [Mass ratio]14.4 mg/mgNOMS HealthcareCLINISYNCNPOST AC[facility] – [facility] HealthcareALL CBC WITH AUTO DIFFon 37-60-5169CFHCYLKQY ABSOLUTE AUTO0.0NOMS HealthcareBasophils/100 WBC (Bld)0.4 %0.2 - 2.0 %NOMS HealthcareEosinophils/100 WBC (Bld)1.8 %0.9 - 7.0 %NOMS HealthcareErythrocyte distribution width (RBC) [Ratio]14.3 %11.0 - 15.0 %NOMS HealthcareHematocrit (Bld) [Volume fraction]40.3 %36.0 - 48.0 %NOMS HealthcareHemoglobin (Bld) [Mass/Vol]12.7 g/dL12.0 - 16.0 g/dLNOCT HealthcareIMMATURE GRANULOCYTES ABS AUTO0.01NOMS HealthcareImmature granulocytes/100 WBC (Bld)0.1 %0.0 - 0.5 %NOM HealthcareInterpretation and review of laboratory resultsAbnormalNOMS HealthcareLYMPHOCYTES ABSOLUTE AUTO2.4 NOMS HealthcareLymphocytes/100 WBC (Bld)32.9 %20.5 - 60.0 %NOMS HealthcareMCH (RBC) [Entitic mass]30.0 pg26.7 - 34.0 pgNOCT HealthcareHC (RBC) [Mass/Vol] 31.5 g/dL29.9 - 35.2 g/dLNOCT HealthcareMCV (RBC) [Entitic vol]95.0 fL81.0 - 99.0 fLNOCT HealthcareMONOCYTES ABSOLUTE AUTO0.4NOCT HealthcareMonocytes/100 WBC (Bld)6.0 %1.7 - 12.0 %NOM HealthcareNEUTROPHILS ABSOLUTE AUTO4.3[facility] Neutrophils/100 WBC (Bld)58.8 %43.0 - 75.0 %NOM HealthcarePlatelet mean volume (Bld) [Entitic vol]8.6 fLLow9.5 - 13.5 fLNOMS HealthcareTBH EO #0.1NOMS HealthcareTBH [id number] HealthcareTB RBC4.24NOMS HealthcareTB WBC7.4NOMS HealthcareCLINISYNCNOMS HealthcareMR LUMBAR SPINE KASHMIR Haji 26-61-30[address] [address] Magnetic Resonance Report Signed Patient: YOUSUF AMAYA V MR#: [id number] : 1960 Acct:[id number] Age/Sex: 63 / F ADM Date: 11/10/23 Loc: MRI Attending Dr: Dorita Dye ICE DELIVERY DRIVER Ordering Physician: Dorita Dye NP Date of Service: 11/10/23 Procedure(s): MR lumbar spine wo con Accession Number(s): [id number] cc: NELLY ZEE ; Dorita Dye NP [address] [address] Patient Name: YOUSUF AMAYA MRN: [id number] date: 1960 Sex: F Assigned Patient Location: MRI Current Patient Location: Accession/Order Number: [id number] Exam Date: 11/10/2023 07:05 Report Date: 11/13/2023 [...] Kingsley Burnette M.D. Signed By: 11/13/23810 DD/ TD/TT: Acute Care Assistant:TBHRadiology, Radiologist, - 11/13/2023 [facility] [place] [address] Magnetic Resonance Report Signed Patient: YOUSUF AMAYA V MR#: [id number] : 1960 Acct:[id number] Age/Sex: 63 / F ADM Date: 11/10/23 Loc: MRI Attending Dr: Dorita Dye ICE DELIVERY DRIVER Ordering Physician: Dorita Dye NP Date of Service: 11/10/23 Procedure(s): MR lumbar spine wo con Accession Number(s): [id number] cc: NELLY ZEE ; Dorita Dye NP [address] [address] Patient Name: YOUSUF AMAYA MRN: [facility]:[id number] date: 1960 Sex: F Assigned Patient Location: MRI Current Patient Location: Accession/Order Number: [id number] Exam Date: 11/10/2023 07:05 Report Date: 11/13/2023 [...] Dictated By: Kingsley Burnette M.D. Signed By: 11/13/2311 DD/ 8 TD/TT: Acute Care Assistant: ANDREINA [facility] Memorial HospitalRadiology Study observation (narrative)[facility] LUMBAR SPINE WO CONOrdered By: Radiologist Radiology on 89-35-0244MKOAResearch Psychiatric Center Work Phone: mm TOMOSYNTHESIS SCREENING BIon 30-60-6238Qlh[address] [address] Mammography Report Signed Patient: YOUSUF AMAYA V MR#: [id number] : 1960 Acct:[id number] Age/Sex: 63 / F ADM Date: 10/27/23 Loc: MAMMO Attending Dr: NELLY ZEE Ordering Physician: NELLY ZEE Results: Date of Service: 10/27/23 Follow Up: Procedure(s): MM tomosynthesis screening BI Accession Number(s): [id number] cc: NELLY ZEE Patient Name: YOUSUF AMAYA MR#: [id number] : 1960 Exam Date: 10/27/2023 Ordering Doctor: [...] Treatments None Family Cancers None LOCATION: [facility] BREAST COMPOSITION: There are scattered areas [...] M.D. Signed By: 10/30/23721 DD/ 0 TD/TT: Acute Care Assistant:AZALEAHRadiologcandice, RadiologistMD - 10/30/2023 [place] [address] Mammography Report Signed Patient: YOUSUF AMAYA V MR#: [id number] : 1960 Acct:[id number] Age/Sex: 63 / F ADM Date: 10/27/23 Loc: MAMMO Attending Dr: NELLY ZEE Ordering Physician: NELLY ZEE Results: Date of Service: 10/27/23 Follow Up: Procedure(s): MM tomosynthesis screening BI Accession Number(s): [id number] cc: NELLY ZEE Patient Name: YOUSUF AMAYA MR#: [id number] : 1960 Exam Date: 10/27/2023 Ordering Doctor: [...] Treatments None Family Cancers None LOCATION: [facility] BREAST COMPOSITION: There are scattered areas [...] M.D. Signed By: 10/30/23721 DD/ 0 TD/TT: Acute Care Assistant: ANDREINA HealthcareRadiology Study observation (narrative)[facility] TOMOSYNTHESIS SCREENING BIOrdered By: Radiologist Radiology on 66-51-5476QLKH [employer] Work Phone: MG MAMM SCREEN 3D HOLLY CADon 13-75-4169UM MAMM SCREEN 3D HOLLY CADPatient: YOUSUF AMAYA V. Exam Date: 10/20/2021 : 1960 Gender:F Ordering : DR NELLY ZEE M.D. Admission #: [id number] Family : Order #: [id number] CLICK HERE TO VIEW EXAM RADIOLOGY REPORT [...] Treatments None Family Cancers None LOCATION: [facility] BREAST COMPOSITION: Scattered areas fibroglandular density. [...] by: Kingsley Burnette MD on 10/20/2021 at 09:58NoMary [facility] w/ Reflex to Free T4on 09-43-5411FDX8.990 uIU/mLNormal0.400-4.500[facility] SpecialistComment on above:Performed By: #### TSH reflex FT4 #### [facility] [address] [place], [place] [id number] Blood Count with Auto Diffon 69-17-2039Khbozijkx (Bld) [#/Vol]0.05 10*3/uLNormal0.00-0.20[facility] SpecialistComment on above:Performed By: #### LIPD, TSH reflex FT4, CMP, FT4, CBCAD #### [facility] [address] [place], [place] [address]Xpnoavbds/100 WBC (Bld)0.9 %NormalCincinnati Va Medical CenterComment on above:Performed By: #### LIPD, TSH reflex FT4, CMP, FT4, CBCAD #### [facility] [address] [place], [place] [address]Aezmrerykcu (Bld) [#/Vol]0.41 10*3/uLNormal0.02-0.50Cincinnati Va Medical CenterComment on above:Performed By: #### LIPD, TSH reflex FT4, CMP, FT4, CBCAD #### [facility] [address] [place], [place] [address]Uxklikaguob/100 WBC (Bld)7.2 %NormalCincinnati Va Medical CenterComment on above:Performed By: #### LIPD, TSH reflex FT4, CMP, FT4, CBCAD #### [facility] [address] [place], [place] [address]Ohtrsedsxsq distribution width (RBC) [Ratio]13.4 %Normal 11.0-15.0[facility] SpecialistComment on above:Performed By: #### LIPD, TSH reflex FT4, CMP, FT4, CBCAD #### [facility] [address] [place], [place] [address]Xwbndqbvtc (Bld) [Volume fraction]41.2 %Soetdb27.0-47.0 [facility] SpecialistComment on above:Performed By: #### LIPD, TSH reflex FT4, CMP, FT4, CBCAD #### [facility] [address] [place], [place] [address]Zvknmoyekn (Bld) [Mass/Vol]13.1 g/lUMxckcn99.6-15.5[facility] SpecialistComment on above:Performed By: #### LIPD, TSH reflex FT4, CMP, FT4, CBCAD #### [facility] [address] [place], [place] [address]Nfhivjmuyrr (Bld) [#/Vol]1.8 10*3/uLNormal0.9-3.9NortFirelands Regional Medical Center SpecialistComment on above:Performed By: #### LIPD, TSH reflex FT4, CMP, FT4, CBCAD #### [facility] [address] [place], [place] [address]Ythtqtkxvbr/100 WBC (Bld)31.8 %NormalNortFirelands Regional Medical Center SpecialistComment on above:Performed By: #### LIPD, TSH reflex FT4, CMP, FT4, CBCAD #### [facility] [address] [place], [place] [id number] (RBC) [Entitic mass]29.3 ssNvvxce63.0-33.0NoKettering Health [facility]in [facility] SpecialistComment on above:Performed By: #### LIPD, TSH reflex FT4, CMP, FT4, CBCAD #### [facility] [address] [place], [place] [id number] (RBC) [Mass/Vol]31.8 g/dLLow32.0-36.0NoKettering Health – Soin [facility] SpecialistComment on above:Performed By: #### LIPD, TSH reflex FT4, CMP, FT4, CBCAD #### [facility] [address] [place], [place] [address]ZBA (RBC) [Entitic vol]92 vUWbkhcy48-770Jmfnxwiw [place] [facility] SpecialistComment on above:Performed By: #### LIPD, TSH reflex FT4, CMP, FT4, CBCAD #### [facility] [address] [place], [place] [address]Klwosdwsc (Bld) [#/Vol]0.5 10*3/uLNormal0.2-0.9NoKettering Health [facility] SpecialistComment on above:Performed By: #### LIPD, TSH reflex FT4, CMP, FT4, CBCAD #### [facility] [address] [place], [place] [address]Qzczbomrt/100 WBC (Bld)8.1 %NormalNorthern Butts Medical SpecialistComment on above:Performed By: #### LIPD, TSH reflex FT4, CMP, FT4, CBCAD #### [facility] [address] [place], [place] [address]Kyihkzuxziv (Bld) [#/Vol]3.0 10*3/uLNormal1.5-7.8NoKettering [facility] SpecialistComment on above:Performed By: #### LIPD, TSH reflex FT4, CMP, FT4, CBCAD #### [facility] [address] [place], [place] [address]Fxdjsjhmavm/100 WBC (Bld)51.6 %NormalNoKettering Health – Soin [facility] SpecialistComment on above:Performed By: #### LIPD, TSH reflex FT4, CMP, FT4, CBCAD #### [facility] [address] [place], [place] [address]Wlzhivft mean volume (Bld) [Entitic vol]9.50 fLNormal 7.50-12.50NoKettering [facility] SpecialistComment on above:Performed By: #### LIPD, TSH reflex FT4, CMP, FT4, CBCAD #### [facility] [address] [place], [place] [address]Eqdilxpgx (Bld) [#/Vol]367 10*3/vXEdysvv295-784Lcijoyvm [place] [facility] SpecialistComment on above:Performed By: #### LIPD, TSH reflex FT4, CMP, FT4, CBCAD #### [facility] [address] [place], [place] [address]SUV (Bld) [#/Vol]4.47 10*6/uLNormal3.90-5.20NoKettering [facility] SpecialistComment on above:Performed By: #### LIPD, TSH reflex FT4, CMP, FT4, CBCAD #### [facility] [address] [place], [place] [address]MKP-OG70.9 sIRdzyjp44.0-50.0NoKettering Health – [facility]in [facility] Center Specialist Comment on above:Performed By: #### LIPD, TSH reflex FT4, CMP, FT4, CBCAD #### [facility] [address] [place], [place] [address]HTA (Bld) [#/Vol]5.7 10*3/uLNormal3.8-11.0[facility] Va Medical CenterComment on above:Performed By: #### LIPD, TSH reflex FT4, CMP, FT4, CBCAD #### [facility] [address] [place], [place] [address]Ejcucuzqplifm Metabolic Panelon 09-41-6361Rmkqebt [Mass/Vol] 4.5 g/dLNormal3.6-5.1NortherProtestant Hospital SpecialistComment on above:Performed By: #### LIPD, TSH reflex FT4, CMP, FT4, CBCAD #### [facility] [address] [place], [place] [address]Pksrttt/Globulin [Mass ratio]1.7 {ratio}Normal1.0-2.5NoKing's Daughters Medical Center OhioComuniversity of michigan health on above:Performed By: #### LIPD, TSH reflex FT4, CMP, FT4, CBCAD #### [facility] [address] [place], [place] [address]WQJ [Catalytic activity/Vol]89 U/ICottvv19-345ZmgvnwgsKing's Daughters Medical Center OhioComment on above:Performed By: #### LIPD, TSH reflex FT4, CMP, FT4, CBCAD #### [facility] [address] [place], [place] [address]XDG [Catalytic activity/Vol]27 U/LNormal6-33NoKettering [facility] SpecialistComment on above:Result Comment: 03/24/2021 Female reference range changed.Performed By: #### LIPD, TSH reflex FT4, CMP, FT4, CBCAD #### [facility] [address] [place], [place] [address] gap [Moles/Vol]18 mmol/CSdpvnu14-92Kaicxuxf [place] [facility] SpecialistComment on above:Result Comment: Effective 04/29/2019 reference range changed.Performed By: #### LIPD, TSH reflex FT4, CMP, FT4, CBCAD #### [facility] [address] [place], [place] [address]DDU [Catalytic activity/Vol]25 U/LNormal9-34NortFirelands Regional Medical Center SpecialistComment on above:Performed By: #### LIPD, TSH reflex FT4, CMP, FT4, CBCAD #### [facility] [address] [place], [place] [address]XOX/CREA22 RatioNormal6-22NortFirelands Regional Medical CenterFront Facer Comment on above:Performed By: #### LIPD, TSH reflex FT4, CMP, FT4, CBCAD #### [facility] [address] [place], [place] [address]Dyirqvp [Mass/Vol]9.5 mg/dLNormal8.6-10.2[facility] SpecialistComment on above:Performed By: #### LIPD, TSH reflex FT4, CMP, FT4, CBCAD #### [facility] [address] [place], [place] [address]Oeotivbu [Moles/Vol]102 mmol/ZHrbspf66-438Eyoiebzg [place] [facility] SpecialistComment on above:Performed By: #### LIPD, TSH reflex FT4, CMP, FT4, CBCAD #### [facility] [address] [place], [place] [address]VQ8 [Moles/Vol]26 mmol/JGurnyn47-16Ckqmiard [place] [facility] SpecialistComment on above:Performed By: #### LIPD, TSH reflex FT4, CMP, FT4, CBCAD #### [facility] [address] [place], [place] [address]Ihlyvmwjqq [Mass/Vol]1.0 mg/dLNormal0.6-1.4Nortdignity health arizona general hospitaln [facility] SpecialistComment on above:Performed By: #### LIPD, TSH reflex FT4, CMP, FT4, CBCAD #### [facility] [address] [place], [place] [address]vZZUNH71 mL/min/1.50e2Mlsrkr>60Nortdignity health arizona general hospitaln [facility] SpecialistComment on above:Performed By: #### LIPD, TSH reflex FT4, CMP, FT4, CBCAD #### [facility] [address] [place], [place] [address]qWGNKGJ39 mL/min/1.42h4Yvi>60NoKettering Health – [facility]in Medical Center Specialist Comment on above:Performed By: #### LIPD, TSH reflex FT4, CMP, FT4, CBCAD #### [facility] [address] [place], [place] [address]Rwiinfll (S) [Mass/Vol]2.6 g/dLNormal1.9-3.7NoKettering Health – [facility] SpecialistComment on above:Performed By: #### LIPD, TSH reflex FT4, CMP, FT4, CBCAD #### [facility] [address] [place], [place] [address]Ormyhom [Mass/Vol]110 mg/aOTeoy37-55Jmhuelhd [place] [facility] SpecialistComment on above:Result Comment: For FASTING Glucose --- ADA reference ranges: Normal 65-99 mg/dl Prediabetes 100-125 Diabetes >/= 126Performed By: #### LIPD, TSH reflex FT4, CMP, FT4, CBCAD #### [facility] [address] [place], [place] [address]Hzrdezwnz [Moles/Vol]3.5 mmol/LNormal3.5-5.5NoKettering Health – [facility]in [facility] SpecialistComment on above:Performed By: #### LIPD, TSH reflex FT4, CMP, FT4, CBCAD #### [facility] [address] [place], [place] [address]Filfiqj [Mass/Vol]7.1 g/dLNormal6.1-8.1[facility] SpecialistComment on above:Performed By: #### LIPD, TSH reflex FT4, CMP, FT4, CBCAD #### [facility] [address], [place] [address]Grblsr [Moles/Vol]142 mmol/XSmtuvm140-403Tatvtlvi [place] [facility] SpecialistComment on above:Performed By: #### LIPD, TSH reflex FT4, CMP, FT4, CBCAD #### [facility] [address] [place], [place] [address]EJTU<0.3NormalNortdignity health arizona general hospitaln [facility] SpecialistComment on above:Performed By: #### LIPD, TSH reflex FT4, CMP, FT4, CBCAD #### [facility] [address], [place] [address]Zivg nitrogen [Mass/Vol]21 mg/dLNormal7-25Nortdignity health arizona general hospitaln [facility] SpecialistComment on above:Performed By: #### LIPD, TSH reflex FT4, CMP, FT4, CBCAD #### [facility] [address], [place] [address]Apro T4on 12-25-0796Jhxt T4 [Mass/Vol]1.17 ng/dLNormal 0.80-1.80Nortdignity health arizona general hospitaln [facility] SpecialistComment on above:Performed By: #### LIPD, TSH reflex FT4, CMP, FT4, CBCAD #### [facility] [address], [place] [address]Jrzod Panelon 93-03-1006Lgnvzprorkv [Mass/Vol]256 mg/dLHigh 125-200NoKettering [facility] SpecialistComment on above:Result Comment: Low risk < 200mg/dL Borderline risk 201-239 mg/dl High risk > or equal to 240Performed By: #### LIPD, TSH reflex FT4, CMP, FT4, CBCAD #### [facility] [address], [place] [address]Qkxbceorrup in HDL [Mass/Vol]68 mg/dLNormal>40NortFirelands Regional Medical Center SpecialistComment on above:Result Comment: High Cardiovascular Risk HDL <40 mg/dL Low Cardiovascular Risk HDL > or equal to 60 mg/dlPerformed By: #### LIPD, TSH reflex FT4, CMP, FT4, CBCAD #### [facility] [address], [place] [address]Eterbhcsagu in LDL [Mass/Vol]170 mg/dLNormalNortFirelands Regional Medical Center SpecialistComment on above:Result Comment: LDL ATP III CLASSIFICATION LDL less than 100 mg/dl Optimal LDL 100-129 mg/dl Near or above optimal LDL 130-159 Borderline high LDL 160-189 High LDL greater than 189 mg/dl Very HighPerformed By: #### LIPD, TSH reflex FT4, CMP, FT4, CBCAD #### [facility] [address], [place] [address]Lbriwmqhidp in VLDL [Mass/Vol]18 mg/dLNormalNoKettering Health – Soin [facility] Center SpecialistComment on above:Performed By: #### LIPD, TSH reflex FT4, CMP, FT4, CBCAD #### [facility] [address] [place], [place] [address]Lklnlousgjz.total/Cholesterol in HDL [Mass ratio]4 {ratio} NormalNoKettering Health – Soin Medical Center SpecialistComment on above:Performed By: #### LIPD, TSH reflex FT4, CMP, FT4, CBCAD #### [facility] [address], [place] [address]Jhoksolopkuh [Mass/Vol]89 mg/xBTxuenx20-058Idongvvo [place] [facility] SpecialistComment on above:Result Comment: TRIG ATPIII CLASSIFICATIONS TRIG less than 150 mg/dl Normal TRIG 150-199 mg/dl Borderline High TRIG 200-500 mg/dl High TRIG greather than 500 mg/dl Very HighPerformed By: #### LIPD, TSH reflex FT4, CMP, FT4, CBCAD #### [facility] [address], [place] [address]PSK w/ Reflex to Free T4on 56-94-2954HY2 reflexFree W2Ocfeei [facility] SpecialistComment on above:Performed By: #### LIPD, TSH reflex FT4, CMP, FT4, CBCAD #### [facility] [address], [place] [address]NIK7.030 uIU/mLHigh0.400-4.500NoKettering [facility] SpecialistComment on above:Performed By: #### LIPD, TSH reflex FT4, CMP, FT4, CBCAD #### [facility] [address], [place] [id number]-83 PCR (CVDTB)on [id number]-CoV-2 (COVID-19) RNA IVAN+probe Ql (Unsp spec)Not detectedNormalNOT DETECTEDThe [facility] Comment on above:Result Comment: This test is not yet approved or cleared by the [place] FDA. When there are no FDA-approved or cleared tests available, and other criteria are met, FDA can make tests available under an emergency access mechanism called an Emergency Use Authorization (EUA). The EUA for this test is supported by the [place] of Health and Human Service's (HHS's) declaration [...] consistent with SARS-CoV-2.Performed By: #### CVDTB #### [facility] [address] [place] [address] Dr. Dontae Toth Vital Signs Date TimeVital SignValuePerforming [id number] 08:43-0400 Diastolic blood wyevjnzx66 mm[Hg]Donaldo Loi [facility] [id number] 08:43-0400Systolic blood lprwhrpa054 mm[Hg]Donaldo Loi [facility] 02-07-2025 13:47-0400Body .94 Georges Zee MD Work Phone: [phone] [place], [place] [address]14610-17-2025 13:47-0400 Body mass index (BMI) [Ratio]29.2 kg/p4YqvxsNelly Zee MD Work Phone: [phone]10-17-2025 13:47-0400 Body .3 kgNelly Zee MD Work Phone: [phone]10-17-2025 13:47-0400 Diastolic blood lyuurmif49 mm[Hg]Nelly Zee MD Work Phone: 1(984)[address] [place], [place] 7602310-17-2025 13:47-0400 Heart ydwh539 /minNelly Zee MD Work Phone: 1(472)[address] [place], [place] 7602310-17-2025 13:47-0400 Systolic blood ccjaasya443 mm[Hg]Nelly Zee MD Work Phone: 1(409)[address] [place], [place] 7602309-30-2025 08:09-0400 Body kzhiuu920.9 cmKaren Hemmer PA Work Phone: 1(327)[address] [place], [place] 5820109-30-2025 08:09-0400Body mass index (BMI) [Ratio]29.44 kg/s7Mzjbf Hemmer PA Work Phone: 1(625)[address] [place], [place] 5820109-30-2025 08:09-0400Body gnerdq89.67 kgKaren Hemmer PA Work Phone: 1(427)[address] [place], [place] 5820109-30-2025 08:09-0400Diastolic blood zgwzqose51 mm[Hg]Franny Hemmer PA Work Phone: 1(290)[address] [place], [place] 5820109-30-2025 08:09-0400Heart rate91 /min Franny Hemmer PA Work Phone: 1(900)[facility] [place], [place] [address]Zbxqhayybl83-78-4301 08:09-0400Respiratory rate16 /minKaren Hemmer PA Work Phone: 1(421)[address] [place], [place] 5820109-30-2025 08:09-6303ZoU6% (BldA) [Mass fraction]97 %Franny Hemmer PA Work Phone: 1(030)[facility] [place], [place] [address]Dzgvmagync13-57-5740 08:09-0400Systolic blood mm[Hg]Franny Hemmer PA Work Phone: 1(522)[address] [place], [place] 5820108-22-2025 13:07-0400Body .94 Georges Zee MD Work Phone: 1(391)[address] [place], [place] 7602308-22-2025 13:07-0400 Body mass index (BMI) [Ratio]29.2 kg/i5SsaqnNelly Zee MD Work Phone: 1(729)[address] [place], [place] 7602308-22-2025 13:07-0400 Body rlubqt69.3 kgNelly Zee MD Work Phone: 1(524)603-[address] [place], [place] 1614608-22-2025 13:07-0400 Diastolic blood ukoeaftp16 mm[Hg]Nelly Zee MD Work Phone: 1(739)[address]08-22-2025 13:07-0400 Systolic blood gpvsrocb248 mm[Hg]Nelly Zee MD Work Phone: 1(315)[address]07-22-2025 08:07-0400 Body .9 cmKaren Hemmer PA Work Phone: 1(335)[facility]-[address] [place], [place] [address]Zxbewzpmtt40-99-1869 08:07-0400Body mass index (BMI) [Ratio]29.48 kg/a3Rfdhr Hemmer PA Work Phone: [facility]Dllislchyk28-10-8024 08:07-0400Body .76 kgKaren Hemmer PA Work Phone: 1(518)[facility]-7631[facility] CenterClnbawrxgh58-87-4056 08:07-0400Diastolic blood tvrpwqua91 mm[Hg]Franny Hemmer PA Work Phone: 1(992)[facility]-[address] [place], [place] [address]Fgzujhnezn50-25-7902 08:07-0400Heart rate91 /min Franny Hemmer PA Work Phone: [facility] CenterXcpcmxaqlp33-27-0765 08:07-0400Respiratory rate16 /minKaren Hemmer PA Work Phone: [facility] CenterFrybjkzist34-85-9724 08:07-0471YwH3% (BldA) [Mass fraction]95 %Franny Hemmer PA Work Phone: [facility] CenterGnnyzxxdwy94-76-3587 08:07-0400Systolic blood ymjywjyn914 mm[Hg]Franny Hemmer PA Work Phone: [facility] CenterEkauduppgy70-85-0001 08:58-0400Body .9 cmKaren Hemmer PA Work Phone: [facility] CenterMijsocutqa81-33-1653 08:58-0400Body mass index (BMI) [Ratio]29.32 kg/r7Vicxn Hemmer PA Work Phone: [facility] CenterXldmboelyw91-55-8940 08:58-0400Body qwaeya23.4 kg Franny Hemmer PA Work Phone: [phone] CenterHwlhlxeqbq36-90-6905 08:58-0400Diastolic blood mm[Hg]Franny Hemmer PA Work Phone: [phone] CenterOjxglchkjq78-06-7485 08:58-0400Heart rate93 /min Franny Hemmer PA Work Phone: [facility] CenterCqqwyujjbn35-37-9301 08:58-0400Respiratory rate16 /minKaren Hemmer PA Work Phone: [phone] CenterZkuufqzxcv55-61-4570 08:58-3347CrN6% (BldA) [Mass fraction]95 %Franny Hemmer PA Work Phone: [phone] CenterYanqrpkacb24-98-8735 08:58-0400Systolic blood mm[Hg]Franny Hemmer PA Work Phone: [phone] CenterJzdxhzrayl47-50-7426 08:33-0400Diastolic blood mm[Hg]Donaldo Monsivais [facility]03-27-2025 08:33-0400Systolic blood cwnekwyx906 mm[Hg]Donaldo [facility]02-17-2025 11:40-0500 Body gynheh942.9 cmKaren Hemmer PA Work Phone: [phone] CenterRniukgsipd70-21-3641 11:40-0500Body mass index (BMI) [Ratio]29.89 kg/s2Zdfnm Hemmer PA Work Phone: [phone] CenterOajgsvbcqo51-09-9074 11:40-0500Body bofvkp65.76 kgKaren Hemmer PA Work Phone: [phone] CenterHjlpgnrwtn81-86-8806 11:40-0500Diastolic blood dbvanqpw05 mm[Hg]Franny Hemmer PA Work Phone: [phone] CenterSxckncczgb85-17-2417 11:40-0500Heart rate87 /min Franny Hemmer PA Work Phone: 1(961)074-[address] [place], [place] [address]Ddxvlvpado18-03-5335 11:40-0500Respiratory rate16 /minFranny Mcdermott PA Work Phone: 1(499)[facility]-[address] [place], [place] [address]Zoawnbutlh61-87-8108 11:40-0585FtC0% (BldA) [Mass fraction]96 %Franny Hemmer PA Work Phone: 1(219)[facility]-[address] [place], [place] [address]Hjozezjhsf29-52-7650 11:40-0500Systolic blood hirxiptz343 mm[Hg]Franny Mcdermott PA Work Phone: 1(035)[facility] [place], [place] [address]Dihyoseaxy98-80-3731 14:25-0500Diastolic blood ajnmfbun87 mm[Hg]Nelly Zee MD Work Phone: 1(091)[address] [place], [place] 7602301-23-2025 14:25-0500 Heart rate75 /minNelly Zee MD Work Phone: 1(954)[address] [place], [place] 7602301-23-2025 14:25-0500 Respiratory rate16 /minNelly Zee MD Work Phone: 1(634)[address] [place], [place] 7602301-23-2025 14:25-0500 SaO2% (BldA) [Mass fraction]96 %Nelly Zee MD Work Phone: 1(963)[address] [place], [place] 7602301-23-2025 14:25-0500 Systolic blood xnwyzdle929 mm[Hg]Nelly Zee MD Work Phone: 1(875)[address] [place], [place] 7602301-23-2025 12:12-0500 Body stdpru077.94 cmRjayant Zee MD Work Phone: 1(335)[address] [place], [place] 7602301-23-2025 12:12-0500 Body .03 kgNelly Zee MD Work Phone: 1(661)[address] [place], [place] 7602312-10-2024 10:32-0500 Body .9 cmFranny Mcdermott PA Work Phone: 1(757)[address] [place], [place] 5820112-10-2024 10:32-0500Body mass index (BMI) [Ratio]29.02 kg/q4Ngqxa Hemmer PA Work Phone: [facility] CenterMtyhpsjula97-78-6795 10:32-0500Body .67 kgKaren Hemmer PA Work Phone: [facility] CenterVqvayphprc57-01-2701 10:32-0500Diastolic blood mm[Hg]Franny Hemmer PA Work Phone: [facility] CenterOvdfvzhrqx70-06-0262 10:32-0500Heart rate88 /min Franny Hemmer PA Work Phone: [facility] CenterDodqsqexhm93-08-0869 10:32-0500Respiratory rate16 /minKaren Hemmer PA Work Phone: [facility] CenterJiwycfluzs86-47-1808 10:32-4138SdJ1% (BldA) [Mass fraction]96 %Franny Hemmer PA Work Phone: [facility] CenterJfxmlapugs25-49-0151 10:32-0500Systolic blood qbhtdwos080 mm[Hg]Franny Hemmer PA Work Phone: [facility] CenterIlimkiqbtc87-91-7704 16:38-0400Body yfcrjk353.9 cmKaren Hemmer PA Work Phone: [facility] CenterCcxtzwjqji16-80-5913 16:38-0400Body mass index (BMI) [Ratio]28 kg/v2Bdjpo Hemmer PA Work Phone: [facility] CenterHyxuunczrm00-51-3140 16:38-0400Body bmilhx10.22 kgKaren Hemmer PA Work Phone: [place] [address]Mgclggcvwz92-83-3163 16:38-0400Diastolic blood mm[Hg]Franny Hemmer PA Work Phone: [facility] CenterJrzpzxocms10-73-9631 16:38-0400Heart rate85 /min Franny Hemmer PA Work Phone: [place] [address]Bkuxzlenmm82-55-5739 16:38-0400Respiratory rate16 /minKaren Hemmer PA Work Phone: [place] [address]Xbdoamyhha08-18-6031 16:38-5413UxZ8% (BldA) [Mass fraction]97 %Franny GILES Work Phone: [facility]oms Kdzpmslrjv58-91-2654 16:38-0400Systolic blood ozfiygqo144 mm[Hg]Franny GILES Work Phone: [facility] Encounters Encounter DateEncounter TypeCare ProviderFacilityStart: 02-17-2025 End: 09-75-2977Fruiowpoy identifierSameer Loi Navfridauriel Work Phone: [facility] [place]edoStart: 42-63-0414wnazhbmtvcXlgfcg Loi Camara Welia Healthtart: 02-07-2025 End: 92-17-6762afptjxpkudPkyxw M Alda MD Work Phone: [phone]-Knslqsshm Health GastroStart: 02-07-2025 End: 08-86-4114Vatgzye encounter procedureJhonatan Thomas [facility] Work Phone: Start: 01-21-2025 End: 38-79-4876Kkqcqq flowsShyla GILES Work Phone: [facility] MedinceStart: 01-21-2025 End: 25-26-4363[place] flowsShyla GILES Work Phone: [facility] MedinceStart: 01-21-2025 End: 98-63-0595Eclluyvwn Result EncounterFranny GILES Work Phone: [facility] External Department UnsolicitedStart: 01-21-2025 End: 64-79-0502Oswvtys encounter procedureFranny GILES Work Phone: [facility] Family MedinceComment on above:Medicare annual wellness visit, subsequent [...] Seasonal allergies; Stage 3a chronic kidney disease ([facility])Start: 01-21-2025 End: 85-98-9266dtavfcdpyiPUZZD M HEMMERNot AvailableStart: 01-16-2025 End: 56-10-6555Moyomahzo Result Chano GILES Work Phone: [facility] External Department UnsolicitedStart: 01-16-2025 End: 13-15-1189Hxnjgawfp Result EncounterFranny GILES Work Phone: [facility] External Department UnsolicitedStart: 12-13-2024 End: 82-17-5154fmculdaunnTqcoi M Alda MD Work Phone: [facility] Work Phone: Start: 12-13-2024 End: 34-42-0972Zjbdscj encounter Manohar Thomas [facility] Work Phone: Start: 11-13-2024 End: 76-75-6683Rlsmun OnlyFranny GILES Work Phone: [facility] CI FMComment on above:Other chronic pain (Primary Dx)Start: 11-12-2024 End: 65-77-5760Ptpnsg flowsShyla GILES Work Phone: [facility] CI FMStart: 11-12-2024 End: 98-34-0561Cyzxep Jon GILES Work Phone: [facility] CI FMStart: 11-12-2024 End: 25-45-4222Ercmubumt Result EncounterFranny GILES Work Phone: [facility] External Department UnsolicitedStart: 11-12-2024 End: 70-56-1117Nwskww outpatient visit 25 minutesFranny GILES Work Phone: [facility] CI FMComment on above:Stage 3b chronic kidney disease (CMS-HCC) (Primary Dx); Degeneration of intervertebral disc of lumbar region with discogenic back pain; Paresthesia of left leg; Chronic left hip pain; Generalized anxiety disorderStart: 11-12-2024 End: 73-78-9364zikqqrhhtgWESNC M HEMMERNot AvailableStart: 11-06-2024 End: 34-46-3361Zxznxrcfz Result EncounterNelly Zee MD Work Phone: [facility] External Department UnsolicitedStart: 11-06-2024 End: 28-38-8059Huuptdlqg Result EncounterNelly Zee MD Work Phone: [facility] External Department UnsolicitedStart: 08-20-2024 End: 21-41-0705Ilyaqx flowsShyla GILES Work Phone: [facility] CI FMStart: 08-20-2024 End: 66-98-1236Djyrpx Jon GILES Work Phone: [facility] CI FMStart: 08-20-2024 End: 32-56-8440Ewcvpc outpatient visit 15 minutesFranny GILES Work Phone: [facility] CI FMComment on above:Lumbar strain, initial encounter (Primary Dx); Rheumatoid arthritis, unspecifiedStart: 08-20-2024 End: 26-56-1113qhuvxnhkikBNPBD M HEMMERNot AvailableStart: 07-18-2024 End: 37-36-7371Qcqlfn outpatient visit 15 minutesDonaldo Mills Work Phone: [facility] [place]edoStart: 64-58-9723sstqltougyJarqmk Al Shweiki Welia Healthtart: 06-14-2024 End: 23-53-0833Mxqpamzsh Result EncounterFranny GILES Work Phone: [facility] External Department UnsolicitedStart: 06-14-2024 End: 74-48-9063Syzkfslil Result EncounterFranny GILES Work Phone: NOQB External Department UnsolicitedStart: 06-10-2024 End: 49-71-3346Waedxx flowsShyla GILES Work Phone: [facility] CI FMStart: 06-10-2024 End: 93-14-5750Kmqdkf flowsShyla GILES Work Phone: [facility] CI FMStart: 06-10-2024 End: 32-31-0208Bksjxn outpatient visit 25 minutesFranny GILES Work Phone: [facility] CI FMComment on above:Near syncope (Primary Dx); Hypokalemia; EVIE (obstructive sleep apnea); CPAP (continuous positive airway pressure) dependence; Benign hypertension (CMS/HCC); Degeneration of intervertebral disc of lumbar region with discogenic back pain; Chronic pain of both knees; Stress reaction; Chronic kidney disease, stage 3a (HCC) (CMS/HCC)Start: 06-10-2024 End: 19-29-4242ibcbjktjcwSADCS M HEMMERNot AvailableStart: 05-29-2024 End: 00-54-0071Ahncrrqop encounterNelly Zee MD Work Phone: [facility] CI FMStart: 71-64-1820Kie-patient / Non-visit Nelly Zee MD Work Phone: [facility] Work Phone: Start: 05-16-2024 End: 53-81-2263Neolusjoq to same day surgery centerNelly Zee MD Work Phone: [facility] Work Phone: Start: 05-16-2024 End: 21-62-4541vvfojwgsfpNerny M Alda MD Work Phone: [facility] Work Phone: Start: 04-02-2024 End: 60-31-4473Yuigub Jon GILES Work Phone: [facility] CI FMStart: 04-02-2024 End: 93-64-2018Vyqcsf flowsheetFranny Thomas Hemmer PA Work Phone: [facility] CI FMStart: 04-02-2024 End: 74-81-6549Rgcodr outpatient visit 15 minutesFranny Bossmer PA Work Phone: [facility] CI FMComment on above:Dysphagia, unspecified type (Primary Dx); Overweight (BMI 25.0-29.9); Gastroesophageal reflux disease without esophagitis; Hoarseness of voice; Chronic coughStart: 04-02-2024 End: 82-19-3348gyspazddajBZCNV M HEMGALDINONot AvailableStart: 01-25-2024 End: 40-97-3797Ddfkcsicg Result EncounterFranny Bossmer PA Work Phone: NO[facility] External Department UnsolicitedStart: 01-25-2024 End: 96-59-1172Hjuyacdph Result Chano Bossmer PA Work Phone: [facility] External Department UnsolicitedStart: 01-19-2024 End: 29-55-4820Kaxwiu outpatient visit 15 Caitlyn Mills Work Phone: [facility] [place]Start: 01-16-2024 End: 60-32-6668Oatzqvvau Result EncounterFranny Bossmer PA Work Phone: NOCA External Department UnsolicitedStart: 01-16-2024 End: 51-28-1610Etweijoxg Result EncounterFranny Bossmer PA Work Phone: NOQA External Department UnsolicitedStart: 01-16-2024 End: 29-24-7540Qmarmkigm encounterVanmilan Thomas Hemmer PA Work Phone: [facility] CI FMStart: 01-10-2024 End: 89-10-3421Wklmliq encounter procedureFranny Martha Hemmer PA Work Phone: [facility] CI FMComment on above:Medicare annual wellness visit, initial (Primary Dx); ACP (advance care planning); Difficulty sleeping; EVIE (obstructive sleep apnea); Other chronic pain; Tension headache; CPAP (continuous positive airway pressure) dependence; Moderate persistent asthma without complication ([facility]); Benign hypertension ([facility]); Dysphagia, unspecified type; Gastroesophageal reflux disease without esophagitis; Stage 3a chronic kidney disease (HCC) ([facility]); Ankylosis, right shoulder; Inflammation of right sacroiliac joint ([facility]); Acquired hypothyroidism ([facility]); Overweight (BMI 25.0-29.9); Thrombocytosis; Elevated LDL cholesterol level ([facility]); Generalized anxiety disorder ([facility]); History of total hysterectomy; Hypokalemia; Retinitis pigmentosa; Seasonal allergies; Other problems related to lifestyle; Atherosclerosis of aorta ([facility])Start: 01-10-2024 End: 12-00-9600Utaxve oJn GILES Work Phone: [facility] CI FMStart: 01-10-2024 End: 42-05-7260Euvqmi Jon GILES Work Phone: [facility] CI FMStart: 11-13-2023 End: 70-80-5848Gxbefuipi Result EncounterFelicia Ana Luisa Dye NP Other Phone: [facility] External Department UnsolicitedStart: 11-13-2023 End: 39-54-5231Nwxirwola Result EncounterFelicia Ana Luisa Dye ICE DELIVERY DRIVER Other Phone: [facility] External Department UnsolicitedStart: 10-30-2023 End: 46-45-4348Aoautsxta Result Alice Zee MD Work Phone: NOQY External Department UnsolicitedStart: 10-30-2023 End: 28-72-0608Opgapxxvx Result EncounterNelly Zee MD Work Phone: [facility] External Department UnsolicitedStart: 02-15-2023 End: 46-82-5611Ixtcwj outpatient visit 15 minutesJosé Miguel Elliott Work Phone: [facility] [place]kyStart: 02-10-2022 End: 84-40-7674Lxmqiq outpatient visit 15 minutesAhmed Martha Alkaliby Work Phone: [facility] [place]kyStart: 10-20-2021 End: 85-72-6513yxlbvqmthsQK RUGEN ALDAFacility:T1Zkvfn: 07-21-2021 End: 54-69-8204Vaaveuuyh identifierDoctor Corporate Work Phone: cei [place] AshStart: 07-21-2021 End: 48-49-3313Augvxz Corporate Work Phone: cei [place] AshStart: 03-24-2021 End: 75-84-7392Vaywhcobq identifierDoctor Corporate Work Phone: cei [place] AshStart: 03-24-2021 End: 61-64-7772Bzdyxj Corporate Work Phone: cei [place] AshStart: 03-22-2021 End: 43-21-8561wswuehvbmdGS RUGEN ALDAFacility:F1Ycpbo: 02-22-2021 End: 63-46-5003gzghvwgqkpYJ FRANNY M HEMMERFacility:R0Fyfkz: 01-22-2021 End: 67-55-9848boejjhbpwqXE RUGEN ALDAFacility:O0Vvfuw: 11-25-2020 End: 89-45-7530Zvrfofrlt Praveen Irby Work Phone: RVShamar SanduskyStart: 11-25-2020 End: 14-04-0658Dakvffr K Dabbs Work Phone: RVShamar [place]kyStart: 12-04-2019 End: 81-78-7371Tusvszhfp Praveen Irby Work Phone: RVShamar BustosuskyStart: 12-04-2019 End: 08-49-9127Qjfmakp K Surekha Work Phone: RVShamar BustosuskyStart: 12-12-2018 End: 92-20-3264Gcgchwigu Praveen Irby Work Phone: [facility] [place]kyStart: 12-12-2018 End: 55-04-9081Dryveir Jasmin Surekha Work Phone: [facility] [place]kyStart: 02-05-2018 End: 38-51-8070Vkcgormlh identifierIra Jasmin Orgel Work Phone: [facility] [place]kyStart: 02-05-2018 End: 63-01-9152Xrj Jasmin Orgel Work Phone: rvA [place]kyStart: 11-01-2017 End: 05-62-1275Fjlpcrdaz identifierCharles K Surekha Work Phone: rvA [place]Start: 11-01-2017 End: 78-52-2083Ahktmtl K Surekha Work Phone: [facility] [place]kyStart: 10-26-2016 End: 78-77-8841Myeqzxxgj identifierCharles K Surekha Work Phone: [facility] [place]kyStart: 10-26-2016 End: 99-36-4584Bsbgtcv K Surekha Work Phone: rvA SandkrissyStart: 11-11-2015 End: 69-18-0108Lcxknntma identifierCharles K Surekha Work Phone: rvA [place]Start: 11-11-2015 End: 31-50-7645Ghcqkku K Surekha Work Phone: rvA [place]Start: 11-19-2014 End: 45-19-2771Cvtsajeyz identifierCharles K Surekha Work Phone: [facility] [place]kyStart: 11-19-2014 End: 75-31-5242Wxjcusy K Surekha Work Phone: rvA [place]kyStart: 03-12-2014 End: 69-58-7794Sbbbeh outpatient new 45 minutesCharles K Surekha Work Phone: [facility] [place] Procedures DateProcedureProcedure DetailPerforming ClinicianStart: 02-17-2025 End: 64-19-1704Dkhbltqlseuv ophthalmic imaging retinaSameer Al ShweikiStart: 45-08-7301Oqrtebyegu exam knee complete 4/more viewsFranny GILES Work Phone: Start: 72-49-5648NR KNEE STANDING BIFranny Mcdermott PA Work Phone: Start: 47-17-0138PKJ CBC WITH AUTO DIFFFranny Thomas Hemmer PA Work Phone: Start: 69-22-8666NN HIP LT MIN 2VFranny Mcdermott PA Work Phone: Start: 75-91-4469IE TOMOSYNTHESIS SCREENING João Zee MD Work Phone: Start: 03-99-6253CfokxzkwuzvDihzh Alda MD Work Phone: Start: 07-18-2024 End: 27-88-1090Zpxmaeklmeod ophthalmic imaging retinaSameer Al Shweiki MDStart: 80-21-0090WR KNEE HOLLY 3VFranny Mcdermott PA Work Phone: Start: 11-78-7493EZH BASIC METABOLIC PANELFranny Mcdermott PA Work Phone: Start: 51-59-7615DsssdxmufissnapfqedhqtiigzHzcsm Alda MD Work Phone: Start: 18-39-1085XQI BASIC METABOLIC PANELFranny Mcdermott PA Work Phone: Start: 01-19-2024 End: 47-27-5760Gevngssqskfy ophthalmic imaging retinaSameer Al Shweiki MDStart: 01-19-2024 End: 96-55-0368Mvhuqk Photos No Charge BilateralSameer Al Shweiki MDStart: 48-70-5218QEM CBC WITH AUTO DIFFFranny Thomas Hemgaldino PA Work Phone: Start: 51-18-4238ZS LUMBAR SPINE WO CONFuvaldoia C Bryon ICE DELIVERY DRIVER Other Phone: Start: 95-65-3937YT TOMOSYNTHESIS SCREENING João Zee MD Work Phone: Start: 06-31-7260VaevlsgqohrYqckj Hemmer PA Work Phone: Start: 02-15-2023 End: 93-08-7680Qcpaogthttdr ophthalmic imaging retinaSameer Al Jax MDStart: 71-97-4268Hxywjik of total hysterectomyHistory of total hysterectomyFranny Mcdermott PA Work Phone: Start: 07-21-2021 End: 71-85-0059Hictosg Records CopiedSameer Al Jax MDStart: 03-24-2021 End: 64-03-0177Yuczykq Records CopiedSameer Al Jax MDStart: 11-25-2020 End: 87-22-1174Xerucpoesibe ophthalmic imaging retinaSameer Al Jax MDStart: 12-04-2019 End: 66-10-1162Kuqqmbipsodj ophthalmic imaging retinaSameer Al Jax MDStart: 12-12-2018 End: 30-86-1707Wygouudbrmkc ophthalmic imaging retinaSameer Al Jax MDStart: 01-25-5723ZcwzelxqloyTiara Hemmer PA Work Phone: Start: 02-05-2018 End: 29-15-7780Qjnbuy photography w/interpretation & reportSzenia Mills MD Start: 11-01-2017 End: 17-92-0288Faamthmvhjcd ophthalmic imaging retinaSameer Al Jax MDStart: 10-26-2016 End: 79-65-4056Vjyuucnafjps ophthalmic imaging retinaSameer Al Jax MDStart: 11-11-2015 End: 53-18-8123Afetomagpjgg ophthalmic imaging retinaSameer Al Jax MDStart: 11-19-2014 End: 01-51-8790Jfsifi photography w/interpretation & reportSzenia Mills MD Start: 03-12-2014 End: 62-41-3968Umziml photography w/interpretation & reportSzenia Mills MD History of total hysterectomyHistory of total hysterectomyFranny Mcdermott PA Work Phone: History of total hysterectomyHistory of total hysterectomyFranny GILES Work Phone: Plan of Treatment DateCare ActivityDetailAuthorStart: 05-89-4884Dvfzawhhe for malignant neoplasm of colonNOMS HealthcareStart: 31-94-9563Eowthri, Victoria / 1 Yr Dfe Colors Oct [facility] Work Phone: Start: 09-30-2026Medicare Annual Wellness (AWV) Medicare Annual Wellness (AWV)[facility] HealthcareStart: 69-07-0352Whhagmaao for malignant neoplasm of breastMammogramNOMS HealthcareStart: 03-21-2025 Pneumococcal Vaccine: Pediatrics (0 to 5 Years) and At-Risk Patients (6 to 64 Years) (3 of 3 - PCV20 or PCV21)Pneumococcal Vaccine: Pediatrics (0 to 5 Years) and At-Risk Patients (6 to 64 Years) (3 of 3 - PCV20 or PCV21)[facility] Start: 02-27-2025 End: 24-60-0082Neotn metabolic 1998 panel - Serum or PlasmaBasic metabolic panel Lab Routine Hypokalemia Stage 3a chronic kidney disease (CMS-HCC) Expected: (Approximate), Expires: 01/21/2026[facility] Work Phone: Comment on above:Expected: 02/27/2025 (Approximate), Expires: 01/21/2026Start: 31-45-4064Rqylfjx cessation educationTobacco cessation counselingCV PhysiciansStart: 80-71-4668Lzwzhbp, Victoria 6-8mo DFE W OCT (7) [facility] Work Phone: Start: 01-21-2025 End: 50-86-0895VG Knee - bilateral 4 ViewsXR knee 4+ views bilateral Imaging Routine Chronic pain of both knees Expected: 01/21/2025, Expires: 01/21/2026[facility] HealthcareComment on above:Expected: 01/21/2025, Expires: 01/21/2026Start: 01-21-2025 End: 38-24-8629VK Knee - bilateral AP W standingXR knees anteroposterior standing bilateral Imaging Routine Chronic pain of both knees Expected: , Expires: 01/21/2026[facility] HealthcareComment on above:Expected: 01/21/2025, Expires: 01/21/2026Start: 01-21-2025 End: 28-73-5248Xdmkwak encounter procedureNOMS Ramiro Zaragoza MedinceComment on above:ArrivedStart: 09-18-2025Medicare Annual Wellness (AWV)Medicare Annual Wellness (AWV)[facility] HealthcareStart: 27-17-0843MSLHT-19 Vaccine ( season)COVID-19 Vaccine ( season)[facility] HealthcareStart: 12-23-2024 Influenza vaccinationInfluenza Vaccine (#1)[facility] HealthcareStart: 11-12-2024 End: 65-65-1898Fbfimlrld (Vitamin B12) [Mass/volume] in Serum or PlasmaVitamin B12 Lab Routine Stage 3b chronic kidney disease (CMS-HCC) Paresthesia of left leg Expected:11/12/2024 (Approximate), Expires: 11/12/2025[facility] HealthcareComment on above:Expected: 11/12/2024 (Approximate), Expires: 11/12/2025Start: 11-12-2024 End: 74-76-7431Dccmxu [Mass/volume] in Serum or PlasmaFolate Lab Routine Stage 3b chronic kidney disease (CMS-HCC) Paresthesia of left leg Expected: 11/12/2024 (Approximate), Expires: 11/12/2025[facility] HealthcareComment on above:Expected: 11/12/2024 (Approximate), Expires: 11/12/2025Start: 11-12-2024 End: 13-03-3608HF Hip - left 3 ViewsXR hip left 2 or 3 views Imaging Routine Chronic left hip pain Expected: 11/12/2024, Expires: 11/12/2025[facility] Work Phone: Comment on above:Expected: 11/12/2024, Expires: 11/12/2025Start: 11-12-2024 End: 80-89-8151Flyqyts encounter procedureNOMS CI FMComment on above:Arrived Start: 35-50-3735Qmockrtyo for malignant neoplasm of breastMammogramNOMS HealthcareStart: 08-20-2024 End: 87-31-0420Ouqvoxp encounter hnpzdgkom51/29/2025 9:00 AM EDT Office Visit [facility] [address] [address] [place] [address] Franny Mcdermott PA [address] [place] [address] ArrivedNOMS CI FMComment on above:ArrivedStart: 06-10-2024 End: 90-16-0524Ucbvj metabolic 1998 panel - Serum or PlasmaBasic metabolic panel Lab Routine Near syncope Hypokalemia Benign hypertension (CMS/HCC) Expected: 0 06/10/2024 (Approximate), Expires: 06/10/2025[facility] Work Phone: Comment on above:Expected: 06/10/2024 (Approximate), Expires: 06/10/2025Start: 06-10-2024 End: 75-83-8615UC Knee - bilateral 3 ViewsXR knee 3 views bilateral Imaging Routine Chronic pain of both knees Expected: 06/10/2024, Expires:06/10/2025[facility] HealthcareComment on above:Expected: 06/10/2024, Expires: 06/10/2025Start: 06-10-2024 End: 78-87-0948Rdiixkj encounter dtoaszupa37/17/2025 11:30 AM EST Office Visit [facility] [address] [place] [address] Franny Mcdermott PA [address] [place] [address] ArrivedNOMS CI FMComment on above:ArrivedStart: 06-06-2024 End: 33-43-5653Qpnbkrm encounter uyhtuuurv33/13/2025 9:00 AM EST Office Visit [facility] [address] [place] [address] Franny Mcdermott PA [address] [place] [address] [facility] CI FMStart: 51-28-1390EerdqegdaEast Ohio Regional Hospitaltart: 04-02-2024 End: 75-52-4313Mcdymol encounter cyjpwicac59/10/2024 10:30 AM EST Office Visit [facility] [address] [place] [address] Franny Mcdermott PA [address] [place] [address] ArrivedNOMS CI FMComment on above:ArrivedStart: 01-23-2024 End: 44-00-8778Jvytc metabolic 1998 panel - Serum or PlasmaBasic metabolic panel Lab Routine Hypokalemia Expected: 01/23/2024 (Approximate), Expires: 01/15/2025 [facility] Work Phone: Comment on above:Expected: 01/23/2024 (Approximate), Expires: 01/15/2025Start: 01-10-2024 End: 81-25-6396Ikpytvq encounter moeyingop11/18/2024 4:30 PM EDT Office Visit [facility] [address] [facility] [address] [place] [address] Franny Mcdermott PA [address] [facility] [address] [place] [address] ArrivedNOMS CI FMComment on above:ArrivedStart: 01-10-2024 End: 61-19-3190EUJ W Auto Differential panel - BloodCBC and differential Lab Routine Medicare annual wellness visit, initial Benign hypertension (CMS/HCC) Thrombocytosis Expected: 01/10/2024 (Approximate), Expires: 01/09/2025[facility] Work Phone: Comment on above:Expected: 01/10/2024 (Approximate), Expires: 01/09/2025Start: 01-10-2024 End: 31-32-9100Cksvwypzldkpd metabolic 2000 panel - Serum or PlasmaComprehensive metabolic panel Lab Routine Medicare annual wellness visit, initial Benign hypertension (CMS/HCC) Stage 3a chronic kidney disease (HCC) (CMS/HCC) Hypokalemia Expected: 01/10/2024 (Approximate), Expires: 01/09/2025[facility] HealthcareComment on above:Expected: 01/10/2024 (Approximate), Expires: 01/09/2025Start: 01-10-2024 End: 15-73-4122KFKKTKCIG C AB W/RFL RNS, PCR W/RFL GENOTYPE,LIPAHEPATITIS C AB W/RFL RNS, PCR W/RFL GENOTYPE,LIPA Lab Routine Medicare annual wellness visit, initial Other problems related to lifestyle Expected: 01/10/2024 (Approximate), Expires: 01/09/2025[facility] HealthcareComment on above:Expected: 01/10/2024 (Approximate), Expires: 01/09/2025Start: 01-10-2024 End: 62-64-5160Apqtg 1996 panel - Serum or PlasmaLipid panel Lab Routine Medicare annual wellness visit, initial Benign hypertension (CMS/HCC) Elevated LDL cholesterol level (CMS/HCC) Expected: 01/10/2024 (Approximate), Expires: 01/09/2025[facility] HealthcareComment on above:Expected: 01/10/2024 (Approximate), Expires: 01/09/2025Start: 01-10-2024 End: 82-57-2492XPW W/REFLEX TO FT4TSH W/REFLEX TO FT4 Lab Routine Medicare annual wellness visit, initial Acquired hypothyroidism (CMS/HCC) Expected: 01/10/2024 (Approximate), Expires: 01/09/2025[facility] HealthcareComment on above: Expected: 01/10/2024 (Approximate), Expires: 01/09/2025Start: 12-24-2023 Influenza vaccinationInfluenza Vaccine (#1)[facility] HealthcareStart: 11-16-2023 Medicare Annual Wellness (AWV)Medicare Annual Wellness (AWV)[facility] Start: 88-34-0272Zylxaxr cessation educationTobacco cessation counselingCVP PhysiciansStart: 39-20-9689EZoO/Tdap/Td Vaccines (2 - Td or Tdap)DTaP/Tdap/Td Vaccines (2 - Td or Tdap)[facility] HealthcareStart: 17-76-3745DAY Vaccines (1 of 1 - Standard series)MMR Vaccines (1 of 1 - Standard series)[facility] HealthcareStart: 11-72-2550Rqtohmbpj for malignant neoplasm of colonNOCT HealthcareBasic metabolic 1998 panel - Serum or PlasmaBasic metabolic panel Lab Routine Stage 3b chronic kidney disease (CMS-HCC) Ordered: 11/12/2024[facility] HealthcareComment on above:Ordered: 11/12/2024Patient EducationEsophageal Dilation Esophageal Stricture (DC) Stomach polyps Hiatal hernia - Discharge instructionsKnow your [facility] Work Phone: Immunizations Immunization DateImmunizationNotesCare HhqytmnsIivsdlrx29-91-4048Pbialkcwy, Madin [place] Canine Kidney, subunit, trivalent, injectable, contains preservative Franny GILES Work Phone: [facility] CenterXbccufyjdk67-40-1659Fxyuvlry, trivalent, recombinant, injectable influenza vaccine, preservative freeFranny GILES Work Phone: [facility] CenterFalffspyws09-45-7649civnpetvr virus vaccine, unspecified formulationNelly Zee MD Work Phone: [facility] CenterCpgyiyhdga11-67-0424CSJ, recombinant, protein subunit RSVpreF, adjuvant reconstitu, 120mcg/0.5mL, PF (Arexvy)Franny GILES Work Phone: [facility] CenterEcamtybmki21-11-6558jfcbtavew, injectable, quadrivalent, preservative freeFranny Mcdermott PA Work Phone: [facility] CenterNgsvbsrazr05-76-8086nkvdcxgiu virus vaccine, unspecified formulationFranny Hemmer PA Work Phone: [facility] CenterGywuylfcit24-52-5834pamhbg vaccine recombinant Franny GILES Work Phone: [facility] CenterDlixvpcepl68-30-3157TYTU-UwH-2, UnspecifiedFranny Hemgaldino PA Work Phone: [facility] CenterBzlsjdebhp03-86-1075xyywacfyg, injectable, quadrivalent, preservative freeFranny Mcdermott PA Work Phone: [phone] [place], [place] [address]Vvmfgovuch80-86-6111mdtiqg vaccine recombinant Franny Hemmer PA Work Phone: [phone] [place], [place] [address]Yxdykeeeve35-77-7950bqpfabhnz, injectable, quadrivalent, preservative freeKaren Hemmer PA Work Phone: [phone] [place], [place] [address]Pwjyozquxi39-49-7772hnrpcoeuj, injectable, quadrivalent, contains preservativeKaren Hemmer PA Work Phone: [phone] [place], [place] [address]Uwerydlulr47-94-7116dbngvxnrrrlh polysaccharide vaccine, 23 valentKaren Hemmer PA Work Phone: [phone] [place], [place] [address]Drljjoubfl16-05-8314muzrtbq toxoid, reduced diphtheria toxoid, and acellular pertussis vaccine, adsorbedKaren Hemmer PA Work Phone: [phone] [place], [place] [address]Eumsjlxdzg09-26-6619ieosaqnhb, injectable, quadrivalent, preservative freeKaren Hemmer PA Work Phone: [phone] [place], [place] [address]Jhwnzwwplw44-73-2266rbohrwmg influenza, intradermal, preservative freeKaren Hemmer PA Work Phone: [phone] StreetAaifvxqhib97-03-7877qojswupah, injectable, quadrivalent, preservative freeKaren Hemmer PA Work Phone: [phone] [address] StreetNmdvqvnfkb28-85-0082ejthkqtr influenza, intradermal, preservative freeKaren Hemmer PA Work Phone: [phone] [address] StreetMemrwhxcpd61-96-4274mrzdvjsly, injectable, quadrivalent, preservative freeKaren Hemmer PA Work Phone: [phone] [place], [place] [address]Jjyqcjojhb77-53-9174zizslztlgaqi conjugate vaccine, 13 valentKaren Hemmer PA Work Phone: [phone] [place], [place] [address]Borvabggbq61-67-1032yqgmrtmum, seasonal, injectableSameer Loi Camara [facility] PhysiciansComment on above:Note: Invalid documented admin date was . ; Source: Other Gzaaesuj85-08-0083 pneumococcal polysaccharide vaccine, 23 valentSameer Loi fridaCentury City Hospital Physicians Comment on above:Note: Invalid documented admin date was . ; Source: Other Provider Payers DatePayer CategoryPayerPolicy [id number] 2024MedicareANTHEM MEDICARE ADVANTAGE [facility] MEDICARE ADVANTAGE [id number] 2023-Present [address] [place] [address] [id number] 2024Medicare (Managed Care)[employer] ADVANTAGE Member Subscriber Plan / Payer (Effective 2023-Present) Name: Yousuf Amaya Kenna Relation to Subscriber: Self Name: Jose LuisYousuf V Payer ID: Not on file Group ID: [id number] Type: Not on file Address: [address] [place] [id number] [id number] 2..1.374858.3.579.2. [id number] 2..1.466220.3.57[id number] 2.0.1.594741.3.57[id number] 2.0.1.372665.3.57[id number] 2.0.1.992773.3.57[id number] 2.0.1.660779.3.57[id number] 2.840.1.007896.3.57[id number] 2..840.1.030198.3.57[id number] 2.16.840.1.280806.3.57[id number] 2..0.1.314276.3.57[id number] 2..840.1.364796.3.57[id number] 2..840.1.531975.3.579.2.531 Social History DateTypeDetailFacilityStart: 11-14-2022 End: 75-37-0160Qkucjtu smoking status NHISNever smoked tobaccoNOMS Healthcare Start: 89-92-7268Gqjernb use and exposureSmokeless tobacco non-userNOMS HealthcareStart: 11-02-2023 End: 59-02-8460Tgfyykhkc beverage intakeCurrent drinker of alcohol (finding)[facility] HealthcareStart: 01-10-2024 End: 45-61-8813Vnyewklfx beverage intakeNOMS HealthcareStart: 01-06-2024 End: 99-73-5883U4851 Health LiteracyNOMS HealthcareStart: 19-92-3031Yse often do you need to have someone [...] got money to buy more.Never trueNOMS HealthcareStart: 25-52-0785Dcgiemo CommentCaffeine intake: 1-2 cups per dayNOMS HealthcareStart: 22-71-2170Ysu assigned at birthNot on fileNOMS HealthcareStart: 88-58-4917KewAvhwhyn sex unknown (finding)[facility] Hospitaltart: 62-57-0179Xwy Assigned At BirthFemalPremier Healthtart: 08-48-3134Iyqoddy intake (observable entity)Alcohol Use DetailsCVP PhysiciansStart: 28-35-3210Pcaqjs-related behavior (observable entity)Caffeine Use DetailsCVP PhysiciansStart: 72-94-5417Kossldt use and exposureNon-Smoking Tobacco Use DetailsCVP PhysiciansHow often do you need to have someone help you when you read instructions, pamphlets, or other written material from your doctor or pharmacy [SILS]SometimesNOMS HealthcareSexFemale (finding)[facility] HospitalDo you belong to any clubs or organizations such as bahai groups, unions, fraternal or athletic groups, or [...] care, and heatingSomewhat hardNOMS HealthcareNEGATED: Highlighted rowStart: 07-18-2024 End: 81-09-6276Kyceuwg smoking status NHISUnknown if ever smokedCVP Physicians NEGATED: Highlighted rowStart: 83-14-0197Cpfqcze of tobacco useCurrent non-smokerCVP Physicians Medical Equipment Procedure CodeEquipment CodeEquipment Original TextEquipment IdentifierDates Phacoemulsification of cataract with intraocular lens implantationPosterior- chamber intraocular lens, [id number] FDAStart: 80-86-0002Ugdrfkzlzigkczpdvvf of cataract with intraocular lens implantationPosterior-chamber intraocular lens, pseudophakic ([id number] FDAStart: 11-21-2019 Goals DatePatient GoalDesired Activity/State Functional Status XidoNmiysfbpzfHkahnpCospsgtq09-30-2192Vhkstzt Health Questionnaire 2 item (PHQ- 2) [Reported][facility] CenterPiyhsjijas20-44-5559Qlkae score [AUDIT-C]2 01/15/2025 9:02 AM EDT Mychart, GenericResearch Psychiatric CenterLhajycosby85-85-8786Fbo often do you have a drink containing alcohol?Monthly or less 01/15/2025 9:02 AM EDT Mychart, Generic Monthly or lessNOMS Dmtekowvyl88-38-0353Xhc many standard drinks containing alcohol do you have on a typical day?1 or 2 01/15/2025 9:02 AM EDT Mychart, Generic 1 or 2NOMS Ufwbfelwew80-93-7460Pxx often do you have 6 or more drinks on 1 occasion?Less than monthly 01/15/2025 9:02 AM EDT Mychart, Generic Less than monthlyResearch Psychiatric CenterFossbpmhhy98-47-6437Wlseuer Health Questionnaire 2 item (PHQ-2) [Reported][facility] CenterAwmoqfbxab27-90-3717Iyxzgkp Health Questionnaire 2 item (PHQ-2) [Reported][facility] Psychiatric CenterZxoezsihik70-93-8755Nqwgghg Health Questionnaire 2 item (PHQ-2) [Reported][facility] Clinical Notes 01-10-2024 to 02-17-2025 Note Date & DxxpHyfgNijmwyfi00-65-5987 Evaluation note* Type Assessment Date assessment 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 Side: Bilateral. Status: chronic, stable assessment Pseudophakia impression Pseudophakia: Z96.1. Bilateral. Condition: established, stable assessment Hypertensive retinopathy, bilate ral impression Hypertensive retinopathy, bilate ral: H35.033. Bilateral [facility] Work Phone: [phone] History of Present illness Narrative* Encounter Date Complaint History Of Prese nt Illness pigmentary retinal dystrophy The 64 year old female presents for evaluation of pigmentary retinal dystrophy in the right and left eyes. Patient states for the last 5-6 months she has been experiencing a gradual decline in vision. She states it is hard for her to do daily activities such as cooking, cleaning, reading, writing or watching television. She states this is primarily more difficult in dim or dark areas. She mentions minor eye pain in the left eye. She states it is more like a pressure sensation but has an ache. The ocular pain is daily on and off throughout the day and has been ongoing for months. Patient states she takes Tylenol to help subside the pain but it does not seem to be helping. Patient denies flashes of light or floaters. pigmentary retinal dystrophy The 64 year old [...] for evaluation of RP in both eyes. [facility] Work Phone: [phone] 319-260110-27-2025 Instructions* Date Instruction Additional Infor mation Oct- Impression/Plan Related to Hyper tensive retinopathy, bilateral Oct- Impression/Plan Related to Pigme ntary retinal dystrophy Oct- Impression/Plan Related to Pseud ophakia Impression/Plan Related to Pigme ntary retinal dystrophy Impression/Plan Related to Pseud ophakia Impression/Plan Related to Pseud ophakia Impression/Plan Related to Pigme ntary retinal dystrophy Oct- Impression/Plan Related to Pigme ntary retinal dystrophy Oct- Impression/Plan Related to Pseud ophakia Oct- Impression/Plan Related to Other vitreous opacities, bilateral Oct- Impression/Plan Related to Other vitreous opacities, bilateral Oct- Impression/Plan Related to Pigme ntary retinal dystrophy Return in 1 year eduardo Irby MD for follow up and OCT Related to Pigmentary retinal dystrophy Impression/Plan Related to Gener alized contraction of visual field, bilateral Impression/Plan Related to Pseud ophakia Impression/Plan Related to Other vitreous opacities, bilateral Impression/Plan Related to Pigme ntary retinal dystrophy Return in 1 year eduardo Irby MD for follow up exam and OCT. Related to Pigmentary retinal dystrophy Impression/Plan Related to Pigme ntary retinal dystrophy Impression/Plan Related to Gener alized contraction of visual field, bilateral Impression/Plan Related to Pseud ophakia Impression/Plan Related to Other vitreous opacities, bilateral Return in 1 year eduardo Irby MD for follow up and OCT Related to Pigmentary retinal dystrophy Impression/Plan Related to Age-r elated nuclear cataract, bilateral Impression/Plan Related to Other vitreous opacities, bilateral Impression/Plan Related to Pigme ntary retinal dystrophy Impression/Plan Related to Gener alized contraction of visual field, bilateral Jan- Impression/Plan Related to Gener alized contraction of visual field, bilateral Impression/Plan Related to Other vitreous opacities, bilateral Oct Impression/Plan Related to Age-r elated nuclear cataract, bilateral Impression/Plan Related to Pigme ntary retinal [...] retinal dystrophy Impression/Plan - No t affecting vision. Related to Age-related nuclear cataract, bilateral Impression/Plan - Pa samantha found to have [...] Generalized contraction of visual field, bilateral - Return in 1 year w [...] Patient has been seen previously at the [facility]; she stated they told her they would [...] with OCT. Related to Retinitis pigmentosa - Return in [address] Irby for follow up exam. Related to Retinitis pigmentosa - Patient found to h ave this [...] future. Offered patient a referral to the [facility]/Dr. Robles (who specializes in inherited retinal diseases) if she desires. Also gave patient information on the Vitamin A studies that show slowed progression of the disease with proper dosage. Advised patient to call with any changes, as secondary macular edema can develop and be treated. Baseline Color Photos were obtained today to track progression. Related to Retinitis pigmentosa - Secondary to Retin itis Pigmentosa. Recommend continued visual field testing/monitoring with primary eyecare specialist. Related to Generalized visual field contraction or constriction - Posterior vitreous detachment was noted on examination today and explained to the patient. There is no evidence of a retinal tear, break or detachment. Signs and symptoms of retinal detachment and tears were discussed in detail. Patient instructed to call the office immediately if any symptoms noted. Recommend the patient return to office for follow up. Appropriate follow up with primary eye childcare aide was recommended. Related to PVD (Vitreous degeneration) - The progression of cataracts was noted on examination today. Not affecting vision at this time. Discussed with the patient that cataracts may develop earlier than normal in patients with Retinitis Pigmentosa. Related to Senile nuclear sclerosis [facility] Work Phone: [phone] History of Present illness Narrative* CHAN Elizondo [...] Feb 17 sees the retina specialist in [place] for her 6 month follow up. Medicare [...] you have a medical power of criminal attorney?: No Current Outpatient Medications on File [...] living will and durable power of criminal attorney for healthcare. We discussed telling garcia [...] Retinitis pigmentosa The patient is seeing a manager medical device for this condition, treatment is deferred to that specialist. Correspondence from that specialist and any available testing were reviewed during today's visit. 25. Seasonal allergies This is a chronic medical condition that is stable since last assessment. No changes in treatment are suggested at this time. Continue Montelukast as prescribed. 26. Stage 3a chronic kidney disease (CMS-HCC) Patient is taking the Renafood supplement. She is staying hydrated. Will recheck her kidney function in February. - Basic metabolic panel; Future Follow up in about 6 months (around 07/21/2025) for Hypertension. OCTAVIO MurphyC documented in this encounterResearch Psychiatric CenterTekdyukajz51-28-5555 Evaluation note* Diagnosis Onset Date Resolution Status Admit Date Barretts esophagus acuteAugust 2024 1:04pmEsophageal strictureacuteAugust 2024 1:04pm GERD (gastroesophageal reflux disease)acuteAugust 2024 1:04pmHiatal hernia acuteAugust 2024 1:04pmDysphagianoneactiveAugust 2024 1:04pmGERD (gastroesophageal reflux disease)acuteOctober 2024 1:24pm [facility] Work Phone: [phone]) 864-331207-23-2025 History of Present illness Narrative* CHAN Elizondo - 11/13/2024 9:29 AM EDT Low dose Cymbalta sent in for pt. documented in this encounterResearch Psychiatric CenterSqtujviucy00-22-1046 History of Present illness Narrative* CHAN Elizondo - 11/12/2024 8:00 AM EDT Images from the original note were not included. HPI Chronic Kidney Disease Additional comments: She would like a referral to a assistant director of residence life d/t her kidney disease. Denies having any [...] has nurses that recommended she see a Para Educator. Those same nurses also told her sheneeds [...] this visit: Stage 3b chronic kidney disease ([facility]-HCC) - Basic metabolic panel - Vitamin B12; [...] labs that she will have done at [facility] for further evaluation of her symptoms. She [...] for Medicare Wellness Visit. documented in this encounterResearch Psychiatric CenterMiehmpsdye36-87-1875 History of Present illness Narrative* CHAN Elizondo - 08/20/2024 9:00 AM EDT Images from the original note were not included. Subjective Patient ID: Yousuf Amaya is a 64 y.o. female who presents for [facility] ER follow up. Yousuf is present today for [facility] ER follow up. She was seen at [...] or fail to improve. documented in this encounterResearch Psychiatric CenterPkdpvtvbjt90-45-5389 Evaluation note* Type Assessment Date assessment 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 Side: Bilateral. Status: moderate, chronic, stable assessment Pseudophakia impression Pseudophakia: Z96.1. Bilateral. Condition: established, stable [facility] Work Phone: [phone] History of Present illness Narrative* Encounter Date [...] for evaluation of RP in both eyes. [facility] Physicians Work Phone: [phone] Instructions* Date Instruction Additional Infor linnea Impression/Plan [...] ntary retinal dystrophy Return in 1 year [facility] darren Irby MD for follow up and OCT Related to Pigmentary retinal dystrophy Impression/Plan Related to Gener alized contraction of visual field, bilateral Impression/Plan Related to Pigme ntary retinal dystrophy Impression/Plan Related to Pseud ophakia Impression/Plan Related to Other vitreous opacities, bilateral Return in 1 year [facility] darren Irby MD for follow up exam and OCT. Related to Pigmentary retinal dystrophy Impression/Plan Related to Other vitreous opacities, bilateral Impression/Plan Related to Gener alized contraction of visual field, bilateral Impression/Plan Related to Pigme ntary retinal dystrophy Impression/Plan Related to Pseud ophakia Return in 1 year [facility] darren Irby MD for follow up and [...] visual field, bilateral Return in 1 year [facility] [address]. Irby for follow up exam and [...] Patient has been seen previously at the [facility]; she stated they told her they would [...] up. Appropriate follow up with primary eye childcare aide was recommended. Related to PVD (Vitreous degeneration) [...] future. Offered patient a referral to the [facility]/Dr. Robles (who specializes in inherited retinal diseases) [...] to Retinitis pigmentosa [facility] Work Phone: [phone]) 254-248002-17-2025 History of Present illness Narrative* CHAN Elizondo [...] Brother Past Medical History: Diagnosis Date Asthma ([facility]) multiple admits Cataract senile right eye GERD [...] for Medication Follow Up. documented in this [facility]02-05-2025 Telephone encounter Note* Telephone Encounter - Emilia Flores LPN - 05/29/2024 8:45 AM EST Sent. [facility] Dkgfyuyfla32-83-9429 Miscellaneous Notes* Telephone Encounter - Emilia Flores LPN - 05/29/2024 8:45 AM EST Sent. * Telephone Encounter - Madie Monroy - 05/29/2024 8:28 AM EST potassium chloride CR (K-Tab) 20 MEQ ER tablet Patient is wondering [facility] [place] She said she struggles with low potassium sometimes and she thinks that is what is happening now to her. She feels light-headed, dizzy, like she might pass out. documented in this [facility]02-05-2025 Telephone encounter Note* Telephone Encounter - Madie Monroy - 05/29/2024 8:28 AM EST potassium chloride CR (K-Tab) 20 MEQ ER tablet Patient is wondering [facility] [place]. She said she struggles with low potassium sometimes and she thinks that is what is happening now to her. She feels light-headed, dizzy, like she might pass out. [id number] [place] [address] Gastroenterology H&P Signed Patient: Yousuf Amaya V MR#: [id number] : 1960 Acct:[id number] Age/Sex: 63 / F Adm Date: 5 Loc: Room: Type: [facility] Attending Dr: Sivakumar Juárez MD Copies [...] Juárez MD 05/16/241325 Signed By: 05/16/24 132 [facility]01-23-2025 Procedure noteTraci Ville [id number] EGD Procedure Note Signed Patient: Yousuf Amaya V MR#: [id number] : 1960 Acct:[id number] Age/Sex: 63 / F Adm Date: 5 Loc: Room: Type: [facility] Attending Dr: Sivakumar Juáerz MD Copies to: MD Nelly Lowry MD~ [...] Juárez MD 05/16/24 1326 Signed By: 05/16/24 4884 [facility]12-10-2024 History of Present illness Narrative * [...] for Medicare Wellness Visit. documented in this [facility]09-24-2024 Telephone encounter Note* Telephone Encounter - CHAN Elizondo - 01/16/2024 10:37 AM EDT Called and informed pt that her potassium was very low. Needs to restart the supplement today. She voices understanding, updated Rx sent in for pt. Advised pt will need to recheck in one week. Lab order will be sent to [facility]. [id number] Miscellaneous Notes* Telephone Encounter - CHAN Elizondo - 01/16/2024 10:37 AM EDT Called and informed pt that her potassium was very low. Needs to restart the supplement today. She voices understanding, updated Rx sent in for pt. Advised pt will need to recheck in one week. Lab order will be sent to [facility]. * Telephone Encounter - Rosa Warren MA - 01/16/2024 10:12 AM EDT Critical lab potassium is 2.8 from [facility] documented in this [facility]09-24-2024 Telephone encounter Note* Telephone Encounter - Rosa Warren MA - 01/16/2024 10:12 AM EDT Critical lab potassium is 2.8 from [facility] [id number] History of Present illness Narrative* CHAN Elizondo [...] you have a medical power of criminal attorney?: (P) No Objective : BP 116/72 [...] living will and durable power of criminal attorney for healthcare. We discussed telling garcia [...] joint (CMS/HCC) The patient is seeing a manager medical device for this condition, treatment is deferred to [...] Retinitis pigmentosa The patient is seeing a manager medical device for this condition, treatment is deferred to [...] on January 10, 2024 [facility]* Clinical Note Date No Information [facility] Work Phone: Discharge summary* Clinical Note Date No Information [facility] Work Phone: Evaluation note* Diagnosis Dysphagia, unspecified type- Primary Overweight (BMI 25.0-29.9) Overweight Gastroesophageal reflux disease without esophagitis Esophageal reflux Hoarseness of voice Dysphonia Chronic cough Cough documented in this encounter [facility] HealthcareEvaluation [facility]* Diagnosis Medicare annual wellness [...] LDL cholesterol level (CMS/HCC) Generalized anxiety disorder ([facility]/HCC) Generalized anxiety disorder History of total hysterectomy Hypokalemia Hypopotassemia Retinitis pigmentosa Pigmentary retinal dystrophy Seasonal allergies Allergic rhinitis, cause unspecified Other problems related to lifestyle Atherosclerosis of aorta ([facility]/HCC) Atherosclerosis of aorta documented in this encounter [facility] HealthcareEvaluation note* Diagnosis Hypokalemia- Primary Hypopotassemia documented in this encounter [facility] HealthcareEvaluation noteNo assessment information availableDayton [facility] Work Phone: Evaluation note* Diagnosis Hypokalemia Hypopotassemia documented in this encounter [facility] HealthcareEvaluation note* Diagnosis Near syncope- Primary [...] arthritis, unspecified [facility]* Diagnosis Stage 3b chronic kidney disease ([facility]-HCC)- Primary Degeneration of intervertebral disc of lumbar region with discogenic back pain Paresthesia of left leg Disturbance of skin sensation Chronic left hip pain Generalized anxiety disorder Generalized anxiety disorder documented in [facility]* Diagnosis Other chronic pain- Primary documented in this encounter [facility]* Diagnosis Onset Date Resolution Status Admit Date Barretts esophagus acuteAugust 2024 1:04pmGERD (gastroesophageal reflux disease)acuteAugust 2024 1:04pmDysphagianoneactiveAugust 2024 1:04pm [facility] Work Phone: Evaluation note* Diagnosis Medicare annual [...] cause unspecified Stage 3a chronic kidney disease ([facility]-HCC) documented in this encounter [facility] HealthcareHistory and physical note Author Sivakumar Juárez [facility] Date/TimeJanuary 2024 2:47pm [place] [address] Gastroenterology H&P Signed Patient: Yousuf Amaya V MR#: [id number] : 1960 Acct:[id number] Age/Sex: 63 / F Adm Date: 5 Loc: Room: Type: [facility] Attending Dr: Sivakumar Juárez MD Copies [...] signed by Sivakumar Juárez MD> 05/16/24 1326 [facility] Work Phone: History and physical note* Clinical Note Date No Information [facility] Work Phone: Progress note* Clinical Note Date No Information [facility] Work Phone: Reason for referral (narrative)* Reason For Referral No Information [facility] Work Phone: Reason for referral (narrative)No reason for referral information availableMarietta [facility] Work Phone: Summary Purpose Family History Relationship [...] 1:12pm Chief Complaint and Reason for Visit From encounter dated 02/17/2025 08:35'. pigmentary retinal dystrophy (chief complaint). 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 Patient states for the last 5-6months she has been experiencing a gradual decline in vision. She states it is hard for her to do daily activities such as cooking, cleaning, reading, writing or watching television. She states this is primarily more difficult in dim or dark areas. She mentions minor eye pain in the left eye. She states it is more like a pressure sensation but has an ache. The ocular pain is daily on and off throughout the day and has been ongoing for months. Patient states she takes Tylenol to help subside thepain but it does not seem to be helping. Patient denies flashes of light or floaters. Chief Complaint Admit Date Dysphagia May 16, [...] section and content) DATE CREATED AUTHOR 09/10/2021 [facility] DATE CREATED AUTHOR AUTHOR'S ORGANIZ ATION 10/23/2021 [facility] DATE CREATED AUTHOR AUTHOR'S ORGANIZ ATION 08/22/2024 [facility] DATE CREATED AUTHOR AUTHOR'S ORGANIZ ATION 01/26/2025 [facility] EPIC DATE CREATED AUTHOR AUTHOR'S ORGANIZ ATION 02/19/2025 [facility] Care Teams (unrecognized sec tion and content) Team MemberRelationshipSpecialtyStart DateEnd Date Nelly Zee MD [address] [place] [address] PCP - GeneralFamily Medicine11/15/22 Karolyn Rangel ICE DELIVERY DRIVER [address] [place] [address] PCP - Selene IVORY10/23/23Team MemberRelationshipSpecialtyStart DateEnd Date Nelly Zee MD [address] [place] [address] PCP - GeneralFamily Medicine11/15/22 Dorita Dye NP [address] [place] [id number] PCP - [place]12/24/23Team MemberRelationshipSpecialtyStart DateEnd Date Nelly Zee MD [address] [facility] [address] [place] [address] PCP - GeneralFamily [facility]11/15/22 Dorita Dye, ICE DELIVERY DRIVER [address] [facility] , [facility] [address] [place] [address] PCP - [place]12/24/23Team MemberRelationshipSpecialtyStart DateEnd Date Nelly Zee MD [address] [facility] [address] [place] [address] PCP - [facility]11/15/22 Karolyn Rangel, ICE DELIVERY DRIVER [address] [facility] [address] [place] [address] PCP - [place] ID10/23/23Te MemberRelationshipSpecialtyStart DateEnd Date Nelly Zee MD [address] [facility] [address] [place] [address] PCP - [facility]11/15/22 Karolyn Rangel, ICE DELIVERY DRIVER [address] [facility] [address] [place] [address] PCP - [place] ID10/23/23Team MemberRelationshipSpecialtyStart DateEnd Date Nelly Zee MD [address] [facility] [address] [place] [address] PCP - [facility]Well[facility]11/15/22 Karolyn Rangel, ICE DELIVERY DRIVER [address] [facility] [address] [place] [address] PCP - Selene IVORY10/23/23Team MemberRelationshipSpecialtyStart DateEnd Date Nelly Zee MD [address] [place] [address] PCP - GeneralFamily Medicine11/15/22 Karolyn Rangel NP [address] [place] [address] PCP - Selene IVORY10/23/23 Team Status: Active Member Role Status Dates Nelly Zee MD Primary Care Provider Active Team Status: Inactive Member Role Status Dates Nelly Zee MD Primary Care Provider Active S tart: May 16, 2024 End: May 16, 2024Imad Asaadia , MDAttending ProviderActiveStart: May 16, 2024 End: May 16, 2024 Team Status: Active Member Role Status Dates Nelly Zee MD Primary Care Provider Active S tart: May 16, 2024 Imad Asaad , MDAttending Provider, Other ProviderActiveStart: May 16, 2024 Team MemberRelationshipSpecialtyStart DateEnd Date Nelly Zee MD [address] [facility] [address] [place] [address] PCP - GeneralFamily Medicine11/15/22MonDiegoBina LPN [address] [place] [address] Licensed Practical NurseFamily Xrrgrwec95/18/24Team MemberRelationshipSpecialty Start DateEnd Date Nelly Zee MD [address] [facility] [address] [place] [address] PCP - GeneralFamily Medicine11/15/22 Rosa Edwards RN Licensed Practical NurseFamily Medicine05/31/24Team MemberRelationshipSpecialty Start DateEnd Date Nelly Zee MD [address] [place] [address] PCP - GeneralFamily Medicine11/15/22 Rosa Edwards, RN Licensed Practical NurseFamily Medicine05/31/24Team MemberRelationshipSpecialty Start DateEnd Date Nelly Zee MD [address] [facility] [address] [place] [address] PCP - GeneralFamily Medicine11/15/22 Rosa Edwards, JEREMY Licensed Practical NurseFamily Medicine05/31/24 Name Effective Dates (start - stop) Status Members No Information Team MemberRelationshipSpecialtyStart DateEnd Date Nelly Zee MD [address] [facility] [address] [place] [address] PCP - GeneralFamily Medicine11/15/22 Humera Fontenot LPN 07/12/24Team MemberRelationshipSpecialtyStart DateEnd Date Nelly Zee MD [address] [place] [address] PCP - GeneralFamily Medicine11/15/22 Humera Fontenot LPN 07/12/24Team MemberRelationshipSpecialtyStart DateEnd Date Nelly Zee MD [address] [place] [address] PCP - GeneralFamily Medicine11/15/22 Humera Fontenot LPN [address] [place] [address] 07/12/24Team MemberRelationshipSpecialtyStart DateEnd Date Nelly Zee MD [address] [place] [address] PCP - Generalmily Medicine11/15/22 Humera Fontenot LPN [address] [place] [address] 07/12/24Team MemberRelationshipSpecialtyStart DateEnd Date Nelly Zee MD [address] [place] [address] PCP - [facility]11/15/22 Humera Fontenot LPN [address] [place] [address] 07/12/24Team MemberRelationshipSpecialtyStart DateEnd Date Nelly Zee MD [address] [place] [address] PCP - [facility] Medicine11/15/22 Humera Fontenot LPN [address] [place] [address] 07/12/24 Team Status: Inactive Member Role Status Dates Nelly Zee MD Primary Care Provider Active S tart: December 13, 2024 End: December 13, 2024Enio Molina ProviderActiveStart: December 13, 2024 End: December 13, 2024Team MemberRelationshipSpecialtyStart DateEnd Date Nelly Zee MD [address] [place] [address] [facility] - [facility]11/15/22 Humera Fontenot LPN [address] [place] [address] 07/12/24Team MemberRelationshipSpecialtyStart DateEnd Date Nelly Zee MD [address] [place] [address] PCP - GeneralFamily Medicine11/15/22 Humera Fontenot LPN [address] [place] [address] 07/12/24 Team Status: Active Member Role/Relationship Status [...] tart: February 07, 2025 End: February 07, 2025Enio Molina ProviderActiveStart: February 07, 2025 End: February 07, 2025Team MemberRelationshipSpecialtyStart DateEnd Date Nelly Zee MD [address] [facility] [address] [place] [address] PCP - GeneralP[facility]ont[facility] Hospitally Medicine11/15/22 Karolyn Rangel ICE DELIVERY DRIVER [address] [facility] [address] [place] [address] PCP - [place] MA Dorita Dye ICE DELIVERY DRIVER PCP - [place] MA12/23/2410 Naomie Johnson, JEREMY [address] [facility] [address] [place] [address] Registered NurseFamily Wgqqryxs76/12/Monday, TESS Curran [address] [place] [address] Licensed Practical NurseFamily Zondebhx64/18/242 Rosa Edwards, RN [address] [place] [address] Licensed Practical NurseFamily Medicine Humera Fontenot LPN [address] [place] [address] 07/12/24 Reason for Visit (unrecogniz ed section and content) ReasonCommentsPotassium CheckReasonCommentsChronic Kidney DiseaseShe would like a referral to a assistant director of residence life d/t her kidney disease. Denies having any [...] BE BASED ON THE PRIMARY CLINICAL RECORDS. [facility] [employer] provides no warranty or guarantee of the accuracy or completeness of information in this document.
[2025-03-19 11:16] LABS: Anion Gap 10.6; Blood Urea Nitrogen 16.0 mg/dL (7.0-18.0); Calcium 9.4 mg/dL (8.5-10.1); Carbon Dioxide 30.2 mmol/L (21.0-32.0); Chloride 102 mmol/L (98-107); Estimated GFR (African America >60 (>=60 mL/min/1.73m^2); Estimated GFR (Non-African Ame 60 (>=60 mL/min/1.73m^2); Glucose 85 mg/dL (74-106); Potassium 3.8 mmol/L (3.5-5.1); Sodium 139 mmol/L (136-145); TSH W/ REFLEX FT4 1.124 uIU/mL (0.358-3.740)
== END 2025-03-19 09:32 | disposition home or self-care (01) ==
LOC: LAB 09:31
PROVIDERS: PCP Family Medicine; Visit Provider Physician Assistant
DX: E87.6 Hypokalemia (principal); N18.31 Chronic kidney disease, stage 3a; E03.9 Hypothyroidism, unspecified
CPT/HCPCS: 36415; 80048; 84443

== ENCOUNTER 2025-04-10 09:44 | Outpatient (OUT) | payer MEDICARE, SELFPAY ==
--- OUTSIDE RECORDS SUMMARY | 2025-04-03 12:30 | XMS_ITS | Encounter Summary ---
Author Organization [facility] Address [address] [place] [address] Care Team Providers Care Hot Sealing Machine Operator Name Role Phone Erika Gaviria MD Primary Care Provider [phone] Humera Fontenot LPN Unavailable Reason for Visit * Rehabilitation - Outpatient (Routine) - AuthorizedSpecialtyDiagnoses / ProceduresReferred By ContactReferred To ContactPhysical Therapy Diagnoses Pain in right knee Pain in left knee Low back pain, unspecified Procedures SC PHYSICAL THERAPY EVALUATION LOW COMPLEX 20 MINS SC OFFICE/OUTPATIENT NEW HIGH MDM 60 MINUTES Maureen Polanco MD [address] [place] [address] Phone: tel: fax: Estela Jeffries PT Referral IDStatusReasonStart DateExpiration DateVisits RequestedVisits [id number]/[id number]/ Encounter Details DateTypeDepartmentCare Team (Latest Contact Info)Vmrwvxpqesu24/11/2025 12:30 PM ESTEvaluation [facility] [place] [facility] [address] [place] [address] Estela Jeffries PT Low back pain, unspecified back pain laterality, unspecified chronicity, unspecified whether sciatica present (Primary Dx); Left knee pain, unspecified chronicity; Right knee pain, unspecified chronicity Social History Tobacco UseTypesPacks/DayYears UsedDateSmoking Tobacco: NeverSmokeless Tobacco: NeverAlcohol UseStandard Drinks/WeekCommentsYes5 (1 standard drink = 0.6 oz pure alcohol)Caffeine intake: 1-2 cups per [id number] Health LiteracyAnswerDate RecordedHow often do you need to have someone help you when you read instructions, pamphlets, or other written material from your doctor or pharmacy? Uvbroqrki59/24/2025Humiliation, Afraid, Rape, and Kick questionnaireAnswerDate RecordedWithin the [...] times a week01/15/2025How often do you attend presybeterian or temple services?More than 4 times per year 01/15/2025Do you belong to any clubs or organizations such as presybeterian groups, unions, fraternal or athletic groups, or school groups?Yes01/15/2025How often do you attend meetings of the clubs or organizations you belong to?More than 4 times per year01/15/2025re you , , , , never , or living with a partner?Zgcsajb4301/15/2025UDIT-CAnswerDate RecordedQ1: How often do you have a drink containing alcohol?Monthly or less01/15/2025Q2: How many drinks containing alcohol do you have on a typical day when you are drinking?1 or Q3: How often do you have six or more drinks on one occasion?Less than gubwies4101/15/2025Overall Financial Resource Strain (CARDIA) AnswerDate RecordedHow hard is it for you to pay for the very basics like food, housing, medical care, and heating?Somewhat hard01/15/2025PHQ-2AnswerDate RecordedPatient Health Questionnaire-2 [id number] [facility] hospital [place] of Occupational Health - Occupational Stress QuestionnaireAnswerDate RecordedDo you feel stress - tense, restless, nervous, or anxious, or unable to sleep at night because yourmind is troubled all the time - these days?To some cvgmvc6801/06/2024 Exercise Vital SignAnswerDate RecordedOn average, how many [...] InformationValueDate RecordedSex Assigned at BirthNot on fileLegal YiePdrmpd05/15/2023 8:00 PM EDTGender IdentityNot on fileSexual OrientationNot on filedocumented as of this encounter Progress Notes * Estela Jeffries, PT - 04/03/2025 12:30 PM EST Images from the original note were not included. Physical Therapy Evaluation Visit Patient Name: Анна Amaya Today's Date: 04/03/2025 Encounter Diagnoses Name Primary? Low back pain, unspecified back pain laterality, unspecified chronicity, unspecified whether sciatica present Yes Left knee pain, unspecified chronicity Right knee pain, unspecified chronicity Visit number: 1 Timed Code Treatment Minutes: 45 minutes Total Treatment Time: 55 minutes Time In: 1235 Time Out: 1330 History: Pt states she has been having pain in both her low back and bilateral knees for quite sometime. Pt was recently seen by pain management and will having injections Monday of next week for cluneal injections. States pain management is also going to inject bilateral knees and will refer to ortho if need be. Precautions: Vision impaired Subjective: low back pain, bilateral knee pain Pain: 6/10 Objective: PT Evaluation (04/03/2025) LUMBAR SPINE AROM: full flexion without increase pain, extension limited 75% due to increase right low back pain, increase right low back pain at end range right and left SB. Full bilateral knee ROM without increase pain at end ranges; Strength: right hip ER 4-/5, left hip ER 4/5; Palpation: moderate to severe tenderness right SIJ Special Test: negative slump testing, negative slump testing. Negative bilateral hip scour. Pain inright low back with right LUCIANA; negative SI compression and distraction but increase pain with manual posterior rotation of right innominate. Neurological: Reflexes: 2 bilateral patellar Myotomes: intact Dermatomes: intact Special Test: negative clonus bilateral Treatment: Education: HEP education with demonstration, Educated on Eval Findings and POC Manual Therapy: Passive ROM, Joint mobilization, Soft Tissue Mobilization, Myofascial Release, Muscle Energy Technique, Neural Mobilization, Myofascial Cupping, Dry Needling, IASTM, and Scar mobilization as needed. Therapeutic Exercise: (24 minutes) Strength, Endurance, Flexibility, ROM, HEP, Neural Mobilization,Power, and Core Stability as needed. Pt performed and instructed in home program this date; writteninstructions and pictures issued with good pt understanding. Therapeutic Activity: Exercises to improve dynamic activities, functional tasks, functional mobility to return to prior activity level as needed. Neuromuscular re-education: Balance Training, Muscle Facilitation, Dynamic Stability, Core Stabilization, and Blood Flow Restriction Training (BFRT) as needed. Modalities: Heat, Ice, Electrical Stimulation, Ultrasound, Cervical Mechanical Traction, Lumbar Mechanical Traction, Iontophoresis, and Fluidotherapy as needed. HP x 10 minutes in prone Assessment: Pt is 64 y/o female with complaints of right low back pain and bilateral knee pain. Pt with moderate tenderness right SIJ. Pain with MMT to right hip with limited strength noted. Negativeslump and SLR testing. Pt instructed in home program and will benefit from further PT. Outcome Measure: Back Index: 18/50 Rehab Diagnosis: low back pain, bilateral knee pain Short Term Goal: To be met in 2 weeks Goal 1: Pt to be instructed in home exercise program. Title Officer Goals: To be met in 10 weeks Goal 1: Pt to report independence and compliance with home program. Goal 2: Pt to have full trunk ROM without complaints of increase pain at end ranges to assist with functional tasks. Goal 3: Pt to report pain no greater than 2/10 with function tasks, ADL's, and work related activities. Goal 4: Pt to score no greater than 10/50 on Back Index indicating improved QOL. Goal 5: Pt to achieve 4/5 strength right hip to assist with functional mobility. Pt will benefit from skilled PT for 2-3x/week from 04/03/2025 to 07/02/2025 to address the above impairments. I hereby deem this POC medically necessary. Please sign below. Date: documented in this encounter Plan of Treatment DateTypeDepartmentCare Team (Latest Contact Info)Pmnmlyifliv60/06/2026 9:00 AM ESTTreatment [facility] [address] [facility] [address] [place] [address] Estela Jeffries, PT documented as of this encounter Visit Diagnoses Diagnosis Low back pain, unspecified back pain laterality, unspecified chronicity, unspecified whether sciatica present- Primary Left knee pain, unspecified chronicity Right knee pain, unspecified chronicity documented in this encounter Additional Health Concerns AssessmentNoted TimePHQ-9 Depression Total Score: 7:00 AM EDT documented as of this encounter Care Teams Team MemberRelationshipSpecialtyStart DateEnd Date Erika Gaviria MD [address] [facility] [address] [place] [address] PCP - GeneralFamily Medicine11/15/22 Humera Fontenot LPN [address] [facility] [address] [place] [address] 07/12/24documented as of this encounter
--- OUTSIDE RECORDS SUMMARY | 2025-04-10 09:47 | XMS_ITS | Encounter Summary ---
Author Organization [facility] Address [address] [facility] [place] [address] Care Team Providers Care Artist Model Name Role Phone Erika Gaviria MD Primary Care Provider [phone] FontenotHumera TESS Unavailable Encounter Details DateTypeDepartmentCare Team (Latest Contact Info)Rtgdowqcccu87/07/2025Travel Social History Tobacco UseTypesPacks/DayYears UsedDateSmoking Tobacco: NeverSmokeless Tobacco: NeverAlcohol UseStandard Drinks/WeekCommentsYes5 (1 standard drink = 0.6 oz pure alcohol)Caffeine intake: 1-2 cups per bynM6224 Health LiteracyAnswerDate RecordedHow often do you need to have someone help you when you read instructions, pamphlets, or other written material from your doctor or pharmacy? Ynlipzacn89/24/2025Humiliation, Afraid, Rape, and Kick questionnaireAnswerDate RecordedWithin the [...] times a week01/15/2025How often do you attend mandaen or yazidism services?More than 4 times per year 01/15/2025Do you belong to any clubs or organizations such as mandaen groups, unions, fraternal or athletic groups, or school groups?Yes01/15/2025How often do you attend meetings of the clubs or organizations you belong to?More than 4 times per year01/15/2025re you , , , , never , or living with a partner?Dqfghrf4601/15/2025UDIT-CAnswerDate RecordedQ1: How often do you have a drink containing alcohol?Monthly or less01/15/2025Q2: How many drinks containing alcohol do you have on a typical day when you are drinking?1 or Q3: How often do you have six or more drinks on one occasion?Less than dulethy9301/15/2025Overall Financial Resource Strain (CARDIA) AnswerDate RecordedHow hard is it for you to pay for the very basics like food, housing, medical care, and heating?Somewhat hard01/15/2025PHQ-2AnswerDate RecordedPatient Health Questionnaire-2 Rwrpv066Fin[facility] [place] of Occupational Health - Occupational Stress QuestionnaireAnswerDate RecordedDo you feel stress - tense, restless, nervous, or anxious, or unable to sleep at night because yourmind is troubled all the time - these days?To some vstwld8801/06/2024 Exercise Vital SignAnswerDate RecordedOn average, how many [...] homeless or living in a mcfp (including now)?No01/15/2025 CommentsUnknownSex and Gender InformationValueDate RecordedSex Assigned at BirthNot on fileLegal GnrIodxhr20/15/2023 8:00 PM EDTGender IdentityNot on fileSexual OrientationNot on filedocumented as of this encounter Plan of Treatment DateTypeDepartmentCare Team (Latest Contact Info)Scobrtmmsvn67/06/2026 9:00 AM ESTTreatment [facility] [address] [place] [address] Estela Jeffries, [place] documented as of this encounter Visit Diagnoses Not on filedocumented in this encounter Additional Health Concerns AssessmentNoted TimePHQ-9 Depression Total Score: 7:00 AM EDT documented as of this encounter Care Teams Team MemberRelationshipSpecialtyStart DateEnd Date Erika Gaviria MD [address] [address] PCP - GeneralFamily Medicine11/15/22 Humera Fontenot LPN 112 [address] [place] [address] 07/12/24documented as of this encounter
--- OUTSIDE RECORDS SUMMARY | 2025-04-10 09:47 | XMS_ITS | Clinical Summary ---
Author Organization [facility] Address [id number] [address] [place] [address] Care Team Providers Care Security System Analyst Name Role Phone Erika Gaviria MD Primary Care Provider [phone] Allergies No known active allergies Medications MedicationSigDispense [...] forup to 6 doses. 3 tablet 07/17/2021ctive potassium chloride (K-TAB,KLOR-CON) 20 mEq CR tablet Take 1 tablet (20 mEq total) by mouth in the morning.Active hrodqzfi-vhrd-BX-calcium &mins (THERAGRAN-M) 9 mg iron-400 mcg tablet Take 1 tablet by mouth in the morning.Active rosuvastatin (CRESTOR) 10 mg tablet Take 1 tablet (10 mg total) by mouth in the morning.Active hydroCHLOROthiazide (HYDRODIURIL) 25 mg tablet Take 1 tablet (25 mg total) by mouth daily.Active omeprazole (PriLOSEC) 40 mg capsule Take 1 capsule (40 mg total) by mouth in the morning and at bedtime.Active diclofenac sodium (VOLTAREN) 1 % gel Apply 2-4 g topically Three times daily as needed.Active levothyroxine (SYNTHROID, LEVOTHROID) 50 MCG tablet Take 1 tablet (50 mcg total) by mouth every morning before breakfast. 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); Bilateral chronic knee pain; Chronic bilateral low back pain without ifvymavv94/30/2025Travelfrom Last 3 Months Social History Tobacco UseTypesPacks/DayYears UsedDateSmoking Tobacco: NeverSmokeless Tobacco: NeverAlcohol UseStandard Drinks/WeekCommentsYes0 (1 standard drink = 0.6 oz pure alcohol)occasionallyAUDIT-CAnswerDate RecordedQ1: How often do you have a drink containing alcohol?Monthly or less03/25/2025Q2: How many drinks containing alcohol do you have on a typical day when you are drinking?1 or Frequency of Binge DrinkingNot on file5ChildcareAnswerDate Recorded FmijftvmzAhykbqm17/12/2019EmploymentAnswerDate RecordedEmploymentUnknown 10/03/2018Hunger ScreeningAnswerDate RecordedWithin the past 12 months we worried whether our food would run out before we got money to buy more.Never True03/25/2025Within the past 12 months the food we bought just didn't last and we didn't have money to get more.Never True03/25/2025Purpose - LifeAnswerDate RecordedPurpose and direction in hnasYtuxzxe58/11/2021CommentsUnknownSex and Gender InformationValueDate RecordedSex Assigned at BirthNot on fileLegal VoiEcwpkz46/06/2015 11:28 AM EDTGender IdentityNot on fileSexual OrientationNot on file Last Filed Vital Signs Vital SignReadingTime TakenCommentsBlood Pmnsewqx147/8803/25/2025 12:21 PM EST Iratq244703/25/2025 12:21 PM BPLKrrxmfnmhev88.6 ??C (97.8 ??F)07/16/2021 10:25 PM EDTRespiratory Zonq168605/26/2024 12:21 PM ESTOxygen Fcfyzkfgpc04%03/25/2025 12:21 PM ESTInhaled Oxygen Concentration--Dqwpvn37.7 kg (158 lb)03/25/2025 12:21 PM JTLAvfnnk050.9 cm (5' 1 )03/25/2025 12:21 PM ESTstatedBody Mass Index29.85 03/25/2025 12:21 PM EST Plan of Treatment DateTypeDepartmentCare Team (Latest Contact Info)Ztdvdwgfeog66/19/2025 8:55 AM ESTAppointment [facility] [address] [place] [phone] Nathan Lang MD [address] [place] [address] 04/11/2025 11:23 AM ESTHospital Encounter [facility] [address] [place] [phone] Nathan Lang MD [address] [place] [address] 04/11/2025 11:23 AM EST - 04/11/2025 11:31 AM ESTSurgery [facility] [address] [phone] Nathan Lang MD [address] [place] [address] INJECTION BLOCK NERVE RIGHT CLUNEAL [25150 (CPT??)]05/27/2025 8:00 AM ESTOffice Visit [facility] [address] [place] [phone] Maureen Polanco, AIRCRAFT STRUCTURAL FITTER-DIALYSIS EQUIPMENT TECHNICIAN [address] [place] [address] NamePriorityAssociated DiagnosesDate/TimeINJECTION BLOCK NERVE Other specified mononeuropathies of right lower limb 04/11/2025 11:23 AM ESTHealth MaintenanceDue DateLast DoneCommentsDepression Ttikbpbvk00/14/1973Adult BMI Follow Up Plan1978Pap Smear1981COVID-19 Vaccine ( season), 01/21/2023, 01/20/2022, Additional history existsAdult BMI Chzxepcrj88/05/2024Tobacco Zocyyoasp32/6443Hwsoicmlegp41, 11/21/2018, 12/20/2017DTaP,Tdap and Td Vaccines (2 - Td or Tdap)Zoster (Shingles) ZrxxhrgYotwradln68/12/2022, 2RSV ( or age 60+ yrs) Vhlctmnsc90/14/2024Influenza BtfqievXycipanko37/30/2025, 03/01/2024, 12/31/2022, Additional history exists Medical Devices Not on file Insurance Care Teams Team MemberRelationshipSpecialtyStart DateEnd Date Erika Gaviria MD [facility] [place] [address] [facility]05/24/17
--- OUTSIDE RECORDS SUMMARY | 2025-04-10 09:47 | XMS_ITS | Patient Health Record ---
Author Organization [facility] vices Address [address] [place] [id number] Care Team Providers Care Vp Design Name Role Phone Shanna Lloyd Unavailable [phone] Allergies No Known Allergies Reason For Referral [...] Body mass index 25-29 - overweig ht ([id number]) BMI 28.0-28.9,adult (Z68.28) Activeconfirmed Plan Of Treatment No Information Insurance Providers Payer Name Payer Address Payer Phone Subscriber Number Group Number Insured Name Patient Relationship to Insured Coverage Start Date Coverage End Date [employer] [address] [address] [place] [phone] [id number] Анна Amaya Self - patient is the insured 4 DMedicaid Medicare CrossoverPO [address] [place] [id number] Анна AmayaSelf - patient is the [id number] 2023
--- OUTSIDE RECORDS SUMMARY | 2025-04-10 09:47 | XMS_ITS | Encounter Summary ---
Author Organization [facility] Address [address] [facility] [address] Care Team Providers Care Bolt Threader Name Role Phone Erika Gaviria MD Primary Care Provider [phone] Humera Fontenot LPN Unavailable Encounter Details DateTypeDepartmentCare Team (Latest Contact Info)Lvrxipbctck75/11/2025Bamboo flowsheet [facility] [address] [place] [address] Estela Jeffries, PT Social History Tobacco UseTypesPacks/DayYears UsedDateSmoking Tobacco: NeverSmokeless Tobacco: NeverAlcohol UseStandard Drinks/WeekCommentsYes5 (1 standard drink = 0.6 oz pure alcohol)Caffeine intake: 1-2 cups per [id number] Health LiteracyAnswerDate RecordedHow often do you need to have someone help you when you read instructions, pamphlets, or other written material from your doctor or pharmacy? Possqnvzq26/24/2025Humiliation, Afraid, Rape, and Kick questionnaireAnswerDate RecordedWithin the [...] times a week01/15/2025How often do you attend yarsani or alevism services?More than 4 times per year 01/15/2025Do you belong to any clubs or organizations such as yarsani groups, unions, fraZero Emission Energy Plants (ZEEP) or athletic groups, or school groups?Yes01/15/2025How often do you attend meetings of the clubs or organizations you belong to?More than 4 times per year01/15/2025re you , , , , never , or living with a partner?Yocizck3201/15/2025UDIT-CAnswerDate RecordedQ1: How often do you have a drink containing alcohol?Monthly or less01/15/2025Q2: How many drinks containing alcohol do you have on a typical day when you are drinking?1 or Q3: How often do you have six or more drinks on one occasion?Less than ccoqpbe9701/15/2025Overall Financial Resource Strain (CARDIA) AnswerDate RecordedHow hard is it for you to pay for the very basics like food, housing, medical care, and heating?Somewhat hard01/15/2025PHQ-2AnswerDate RecordedPatient Health Questionnaire-2 Emktk570Finmountainstar healthcare [place] of Occupational Health - Occupational Stress QuestionnaireAnswerDate RecordedDo you feel stress - tense, restless, nervous, or anxious, or unable to sleep at night because yourmind is troubled all the time - these days?To some cfrvtm4201/06/2024 Exercise Vital SignAnswerDate RecordedOn average, how many [...] steady place to sleep or slept in [facility] (including now)?No11/09/2022Housing Stability Vital SignAnswerDate RecordedIn the last 12 months, was there a time when you were not able to pay the mortgage or rent on time?No01/15/2025In the past 12 months, how many times have you moved where you were living?t any time in the past 12 months, were you homeless or living in a long term (including now)?No01/15/2025 CommentsUnknownSex and Gender InformationValueDate RecordedSex Assigned at BirthNot on fileLegal AqvIjmons65/15/2023 8:00 PM EDTGender IdentityNot on fileSexual OrientationNot on filedocumented as of this encounter Plan of Treatment DateTypeDepartmentCare Team (Latest Contact Info)Uveptixsorx31/06/2026 9:00 AM ESTTreatment [facility] [address] [place] [address] Estela Jeffries, PT documented as of this encounter Visit Diagnoses Not on filedocumented in this encounter Additional Health Concerns AssessmentNoted TimePHQ-9 Depression Total Score: 7:00 AM EDT documented as of this encounter Care Teams Team MemberRelationshipSpecialtyStart DateEnd Date Erika Gaviria MD [address] [place] [facility] [address] [place] [address] PCP - GeneralFamily Medicine11/15/22 Humera Fontenot LPN [address] [address] 07/12/24documented as of this encounter
--- OUTSIDE RECORDS SUMMARY | 2025-04-10 09:47 | XMS_ITS | Encounter Summary ---
Author Organization [facility] Address [address] [facility] [place] [address] Care Team Providers Care Ear Flap Binder Name Role Phone Erika Gaviria MD Primary Care Provider FontenotHumera TESS Unavailable Encounter Details DateTypeDepartmentCare Team (Latest Contact Info)Exznxbtxvfx24/11/2025Travel Social History Tobacco UseTypesPacks/DayYears UsedDateSmoking Tobacco: NeverSmokeless Tobacco: NeverAlcohol UseStandard Drinks/WeekCommentsYes5 (1 standard drink = 0.6 oz pure alcohol)Caffeine intake: 1-2 cups per dkhI6833 Health LiteracyAnswerDate RecordedHow often do you need to have someone help you when you read instructions, pamphlets, or other written material from your doctor or pharmacy? Bkhxlfugm50/24/2025Humiliation, Afraid, Rape, and Kick questionnaireAnswerDate RecordedWithin the [...] times a week01/15/2025How often do you attend yazidi or yazdanism services?More than 4 times per year 01/15/2025Do you belong to any clubs or organizations such as yazidi groups, unions, fraternal or athletic groups, or school groups?Yes01/15/2025How often do you attend meetings of the clubs or organizations you belong to?More than 4 times per year01/15/2025re you , , , , never , or living with a partner?Wlzgcjw9001/15/2025UDIT-CAnswerDate RecordedQ1: How often do you have a drink containing alcohol?Monthly or less01/15/2025Q2: How many drinks containing alcohol do you have on a typical day when you are drinking?1 or Q3: How often do you have six or more drinks on one occasion?Less than uxynxhm0601/15/2025Overall Financial Resource Strain (CARDIA) AnswerDate RecordedHow hard is it for you to pay for the very basics like food, housing, medical care, and heating?Somewhat hard01/15/2025PHQ-2AnswerDate RecordedPatient Health Questionnaire-2 Syfif853F[facility] [place] of Occupational Health - Occupational Stress QuestionnaireAnswerDate RecordedDo you feel stress - tense, restless, nervous, or anxious, or unable to sleep at night because yourmind is troubled all the time - these days?To some ttfekq9801/06/2024 Exercise Vital SignAnswerDate RecordedOn average, how many [...] homeless or living in a fci (including now)?No01/15/2025 CommentsUnknownSex and Gender InformationValueDate RecordedSex Assigned at BirthNot on fileLegal NxcTtfdad14/15/2023 8:00 PM EDTGender IdentityNot on fileSexual OrientationNot on filedocumented as of this encounter Plan of Treatment DateTypeDepartmentCare Team (Latest Contact Info)Nslndewsver20/06/2026 9:00 AM ESTTreatment [facility] [address] [place] [address] Estela Jeffries, [place] documented as of this encounter Visit Diagnoses Not on filedocumented in this encounter Additional Health Concerns AssessmentNoted TimePHQ-9 Depression Total Score: 7:00 AM EDT documented as of this encounter Care Teams Team MemberRelationshipSpecialtyStart DateEnd Date Erika Gaviria MD [address] [address] PCP - GeneralFamily Medicine11/15/22 Humera Fontenot LPN 112 [address] [place] [address] 07/12/24documented as of this encounter
--- OUTSIDE RECORDS SUMMARY | 2025-04-10 09:47 | XMS_ITS | Encounter Summary ---
Author Organization [facility] Address [address] [facility] [place] [address] Care Team Providers Care Lining Sewer Name Role Phone Erika Gaviria MD Primary Care Provider [phone] Humera Fontenot LPN Unavailable Encounter Details DateTypeDepartmentCare Team (Latest Contact Info)Psvccghjlul65/15/2025Plan of Care Documentation [facility] [address] [place] [address] Social History Tobacco UseTypesPacks/DayYears UsedDateSmoking Tobacco: NeverSmokeless Tobacco: NeverAlcohol UseStandard Drinks/WeekCommentsYes5 (1 standard drink = 0.6 oz pure alcohol)Caffeine intake: 1-2 cups per [id number] Health LiteracyAnswerDate RecordedHow often do you need to have someone help you when you read instructions, pamphlets, or other written material from your doctor or pharmacy? Gwjzjimet33/24/2025Humiliation, Afraid, Rape, and Kick questionnaireAnswerDate RecordedWithin the [...] times a week01/15/2025How often do you attend moravian or jew services?More than 4 times per year 01/15/2025Do you belong to any clubs or organizations such as moravian groups, unions, fraSunPods or athletic groups, or school groups?Yes01/15/2025How often do you attend meetings of the clubs or organizations you belong to?More than 4 times per year01/15/2025re you , , , , never , or living with a partner?Reduvdl1301/15/2025UDIT-CAnswerDate RecordedQ1: How often do you have a drink containing alcohol?Monthly or less01/15/2025Q2: How many drinks containing alcohol do you have on a typical day when you are drinking?1 or Q3: How often do you have six or more drinks on one occasion?Less than lgoolvg5201/15/2025Overall Financial Resource Strain (CARDIA) AnswerDate RecordedHow hard is it for you to pay for the very basics like food, housing, medical care, and heating?Somewhat hard01/15/2025PHQ-2AnswerDate RecordedPatient Health Questionnaire-2 Azilg530Finvalley view medical center [place] of Occupational Health - Occupational Stress QuestionnaireAnswerDate RecordedDo you feel stress - tense, restless, nervous, or anxious, or unable to sleep at night because yourmind is troubled all the time - these days?To some hsyibj9701/06/2024 Exercise Vital SignAnswerDate RecordedOn average, how many [...] steady place to sleep or slept in [place] (including now)?No11/09/2022Housing Stability Vital SignAnswerDate RecordedIn the last 12 months, was there a time when you were not able to pay the mortgage or rent on time?No01/15/2025In the past 12 months, how many times have you moved where you were living?t any time in the past 12 months, were you homeless or living in a senior living (including now)?No01/15/2025 CommentsUnknownSex and Gender InformationValueDate RecordedSex Assigned at BirthNot on fileLegal HreMhdteo40/15/2023 8:00 PM EDTGender IdentityNot on fileSexual OrientationNot on filedocumented as of this encounter Plan of Treatment DateTypeDepartmentCare Team (Latest Contact Info)Hjubyyhathi51/06/2026 9:00 AM ESTTreatment [facility] [address] [place] [address] Estela Jeffries, PT documented as of this encounter Visit Diagnoses Not on filedocumented in this encounter Additional Health Concerns AssessmentNoted TimePHQ-9 Depression Total Score: 7:00 AM EDT documented as of this encounter Care Teams Team MemberRelationshipSpecialtyStart DateEnd Date Erika Gaviria MD 112 [facility] [address] [place] [address] PCP - GeneralFamily Medicine11/15/22 Humera Fontenot LPN [address] [address] 07/12/24documented as of this encounter
--- OUTSIDE RECORDS SUMMARY | 2025-04-10 09:47 | XMS_ITS | Clinical Summary ---
Author Organization [facility] Healthcare Address [address] [place] [address] Care Team Providers Care Circuit Walker Name Role Phone Erika Zee MD Primary Care Provider [phone] Humera Fontenot LPN Unavailable Allergies Active AllergyReactionsCriticalityNoted IyrwCoomwjoiEvhtlazggk12/30/2025 Medications MedicationSigDispense QuantityRefillsLast FilledStart DateEnd DateStatus albuterol [...] both knees06/10/2024 CPAP (continuous positive airway pressure) larlqsjcbm71/25/2023ifficulty kubbbqli95/25/2023cquired ttzgdbwfunrugh10/24/2023nkylosis, right shoulder 11/14/2022enign xpnsindsquaq84/24/7952Bnqfmlzdi56/24/2023Elevated LDL cholesterol level11/14/2022astroesophageal reflux pzkhnrl3211/14/2022eneralized anxiety ixiojzhg31/24/2023History of total xqqdeaggarmz06/24/2023Hypokalemia 11/14/2022Inflammation of right sacroiliac joint11/14/2022Moderate persistent asthma without wfuexutmejij65/24/2023OSA (obstructive sleep apnea)11/14/2022 Other chronic pain11/14/2022Overweight (BMI 25.0-29.9)11/14/2022Retinitis zzcydlusob42/24/2023Seasonal gznfoeawu41/24/2023Stage 3a chronic kidney disease 11/14/2022Tension ayacnouj54/24/8328Yashsvqdymuqja88/24/2023 Encounters DateTypeDepartmentCare YfhwXjvnzsuaqak73/15/2025Plan of Care Documentation [facility] [address] [facility] [address] [place] [address] 04/03/2025 12:30 PM ESTEvaluation [facility] [address] [address] [place] [address] Mervin Estela, PT Low back pain, unspecified back pain laterality, unspecified chronicity, unspecified whether sciatica present (Primary Dx); Left knee pain, unspecified chronicity; Right knee pain, unspecified noykoqdosv25/11/2025amboo flowsheet [facility] [address] [address] [place] [address] Estela Jeffries, PT 04/03/20256958Gmzgut23/07/5323Fedjqh30/02/2025bstract [facility] [address] [facility] [address] [place] [address] Erika Zee MD 03/24/2025bstract [facility] [address] [facility] [address] [place] [address] Erika Zee MD 03/19/2025Results Follow-Up [facility] [address] [facility] [address] [place] [address] Franny Salazar PA ALL BASIC METABOLIC PANEL, TSH W/REFLEX T403/19/2025linisync Result Encounter [facility] External Department Unsolicited Franny Salazar PA 03/13/2025bstract [facility] [address] [facility] [address] [place] [address] Erika Zee MD 03/12/2025Telephone [facility] [address] [facility] [address] [place] [address] Erika Zee MD 03/06/2025Patient Outreach [facility] [address] [place] [address] Humera Fontenot LPN 02/27/2025Patient Outreach [facility] [address] [place] [address] Humera Fontenot TESS 02/17/2025bstract [facility] [address] [facility] [address] [place] [address] Erika Zee MD 02/10/2025bstract [facility] [address] [facility] [address] [place] [address] Erika Zee MD 01/22/2025bstract [facility] [address] [place] [address] Erika Zee MD 01/21/2025 8:00 AM EDTOffice Visit [facility] [address] [place] [address] Franny Salazar PA Medicare annual wellness visit, [...] Seasonal allergies; Stage 3a chronic kidney disease ([facility])01/21/2025Results Follow-Up [facility] [address] [facility] [address] [place] [address] Franny Salazar PA XR knee 4+ views yceabuaxd91/30/2025bstract [facility] [address] [facility] [address] [place] [address] Erika Zee MD 01/21/2025linisync Result Encounter [facility]OM[facility] External Department Unsolicited Franny Salazar PA 01/21/2025linisync Result Encounter NOM[facility] External Department Unsolicited Franny Salazar PA 01/21/2025amboo flowsheet [facility] [address] [facility] [address] [place] [address] Franny Salazar PA 01/21/20258237Xxmpfa99/25/2025Results Follow-Up [facility] [address] [place] [address] Franny Salazar, CHAN ALL CBC WITH AUTO DIFF, [facility] CMP (CMP) (FOR REMOTE COMMUNITY HEALTH USE), ALL LIPID PROFILE (FASTING), Additionalfollowed-up results: bstract [facility] [address] [facility] [address] [place] [address] Erika Zee MD 01/16/2025bstract [facility] [address] [facility] [address] [place] [address] Erika Zee MD 01/16/2025linisync Result Encounter [facility] External Department Unsolicited Franny Salazar PA 01/15/2025Travelfrom Last 3 Months Immunizations ImmunizationAdministration DatesNext DueInfluenza, Madin Cynthia Canine Kidney, subunit, trivalent, injectable, contains /30/2025Influenza, Recombinant, injectable, preservative free03/01/2024Influenza, injectable, clohapozesto26/28/2020Influenza, injectable, quadrivalent, preservative free 12/31/2022,01/12/2022,02/18/2021,01/03/2019,01/25/2018,02/02/2016Influenza, seasonal, intradermal, preservative free01/03/2019,01/25/2018Pneumococcal Conjugate PCV 131Pneumococcal Polysaccharide NGME9355RSV, recombinant, protein subunit RSVpreF, adjuvant reconstitu, 120mcg/0.5mL, PF (Arexvy)06/07/20235648DKER-JaJ-9, Gqxfigtvdkw22/29/2968Klos44/17/2019Zoster, Wdmoqoszfws29/12/2022,12/01/2021 Family History Medical HistoryRelationNameCommentsKidney diseaseBrotherHypertensionMotherKidney diseaseMotherRelationNameStatusCommentsBrotherFatherDeceasedMotherDeceased Social History Tobacco UseTypesPacks/DayYears UsedDateSmoking Tobacco: NeverSmokeless Tobacco: Never Tobacco Cessation:Counseling Given: Not Answered Alcohol UseStandard Drinks/WeekCommentsYes5 (1 standard drink = 0.6 oz pure alcohol)Caffeine intake: 1-2 cups per qqzL9332 Health LiteracyAnswerDate RecordedHow often do you need to have someone help you when you read instructions, pamphlets, or other written material from your doctor or pharmacy? Rksuzipif13/24/2025Humiliation, Afraid, Rape, and Kick questionnaireAnswerDate RecordedWithin the [...] times a week01/15/2025How often do you attend amish or oriental orthodox services?More than 4 times per year 01/15/2025Do you belong to any clubs or organizations such as amish groups, unions, fraternal or athletic groups, or school groups?Yes01/15/2025How often do you attend meetings of the clubs or organizations you belong to?More than 4 times per year01/15/2025re you , , , , never , or living with a partner?Xvldkkt1601/15/2025UDIT-CAnswerDate RecordedQ1: How often do you have a drink containing alcohol?Monthly or less01/15/2025Q2: How many drinks containing alcohol do you have on a typical day when you are drinking?1 or Q3: How often do you have six or more drinks on one occasion?Less than lntayko1401/15/2025Overall Financial Resource Strain (CARDIA) AnswerDate RecordedHow hard is it for you to pay for the very basics like food, housing, medical care, and heating?Somewhat hard01/15/2025PHQ-2AnswerDate RecordedPatient Health Questionnaire-2 Jqyvy811[facility] [place] of Occupational Health - Occupational Stress QuestionnaireAnswerDate RecordedDo you feel stress - tense, restless, nervous, or anxious, or unable to sleep at night because yourmind is troubled all the time - these days?To some kbjfgj4501/06/2024 Exercise Vital SignAnswerDate RecordedOn average, how many [...] InformationValueDate RecordedSex Assigned at BirthNot on fileLegal GswGigbyp89/15/2023 8:00 PM EDTGender IdentityNot on fileSexual OrientationNot on file Last Filed Vital Signs Vital SignReadingTime TakenCommentsBlood Hrewtdnj094/8401/21/2025 8:09 AM EDT Xegtv071101/21/2025 8:09 AM EDTTemperature--Respiratory Tftf976301/21/2025 8:09 AM EDTOxygen Oclfmyxxby24%01/21/2025 8:09 AM EDTInhaled Oxygen Concentration-- Fuvyrx01.7 kg (155 lb 12.8 oz)01/21/2025 8:09 AM VRVFdmzai172.9 cm (5' 1 ) 01/21/2025 8:09 AM EDTBody Mass Index29.44001/21/2025 8:09 AM EDT Plan of Treatment DateTypeDepartmentCare Team (Latest Contact Info)Uinqsuxpwvk43/06/2026 9:00 AM ESTTreatment [facility] [address] [place] [address] Estela Jeffries, PT Health MaintenanceDue DateLast DoneCommentsCT Cqkzraetzikr64/14/1961FIT-DNA 1960FIT1960FOBT1960 1267Tcbcptefeqrhb98/14/1961OVID-19 Vaccine ( season)5105/01/2023, 01/21/2023, 01/20/2022, Additional history existsPneumococcal Vaccine: Pediatrics (0 to 5 Years) and At-Risk Patients (6 to 64 Years) (3 of 3 - PCV20 or PCV21), 02/02/20164355Zvgvnwjof51, 10/30/2023, 10/21/2022, Additional history existsMedicare Annual Wellness (AWV)/, 01/10/2024, 11/15/2022, Additional history iolvpvLfhmtwlundt69, 12/20/2017 Colorectal Cancer Gnzpucqga94/31/2029Influenza TejjaxbIspbqrtiw96/30/2025, 03/01/2024, 12/31/2022, Additional history exists Procedures Procedure NamePriorityDate/TimeAssociated DiagnosisCommentsTSH W/REFLEX T4 Dvokrgl4103/19/2025 10:01 AM EST ALL BASIC METABOLIC BJDWIOepqxmk47/26/2025 10:01 AM EST XR KNEE 4+ VIEWS DRHFUWGCX55/30/2025 10:31 AM EDT XR KNEE STANDING BI01/21/2025 10:31 AM EDT ALL THYROXINE (T4) DHDABmthxpj65/25/2025 7:10 AM EDT TSH W/REFLEX R9Qujkevg39/25/2025 7:10 AM EDT ALL LIPID PROFILE (FASTING)Nthnmok2601/16/2025 7:10 AM EDT [facility] CMP (CMP) (FOR REMOTE COMMUNITY HEALTH USE)Vijeqag2901/16/2025 7:10 AM EDT ALL CBC WITH AUTO UETREzzbdho93/25/2025 7:10 AM EDT MM TOMOSYNTHESIS SCREENING BI11/06/2024 11:14 AM EDT TKMCJBIFEQIInpgbea58/31/2019 12:00 PM EDT from Last 3 Months or Most Recently Relevant to Health Maintenance Results * TSH W/REFLEX T4 (03/19/2025 10:01 AM EST) Only the most recent of2 resultswithin the time period is included. ComponentValueRef RangeTest MethodAnalysis TimePerformed AtPathologist Signature TSH1.1240.358 - 3.740 uIU/mLTBHSpecimen (Source)Anatomical Location / Laterality Collection Method / VolumeCollection TimeReceived Time03/19/2025 10:01 AM EST 03/19/2025 10:09 AM EST Narrative [facility] - 03/19/2025 11:17 AM EST Authorizing ProviderResult TypeResult StatusFranny Salazar [facility] BLOOD ORDERABLESFinal ResultPerforming OrganizationAddressCity/State/ZIP CodePhone Number [facility] * ALL BASIC METABOLIC PANEL (03/19/2025 10:01 AM EST)ComponentValueRef RangeTest MethodAnalysis TimePerformed AtPathologist IwlilfbmzYIECWI141523 - 145 mmol/L TBHPOTASSIUM3.83.5 - 5.1 mmol/LZDLCIGRPMQC31211 - 107 mmol/LTBHCARBON DIOXIDE 30.221.0 - 32.0 mmol/LTBHANION GAP10.2GGLUPFRXHP5413 - 106 mg/dLTBHBLOOD UREA CIPRJQWF44.07.0 - 18.0 mg/dLTBHCREATININE0.940.55 - 1.02 mg/dLTBHTBH EGFR-AF ICELANDIC>60>=60 mL/min/1.73m 2TBHTBH EGFR-NON AF SNKASXZL68>=60 mL/min/1.73m 2 TBHBUN CREATININE RATIO17.0KLNVHGIDRX9.48.5 - 10.1 mg/dLTBHSpecimen (Source) Anatomical Location / LateralityCollection Method / VolumeCollection Time Received Time03/19/2025 10:01 AM EST03/19/2025 10:09 AM EST Narrative [facility] - 03/19/2025 11:17 AM EST Authorizing ProviderResult TypeResult StatusFranny Thomas Hemmer PACLINISYNCFinal ResultPerforming OrganizationAddressCity/State/ZIP CodePhone Number [facility] * XR KNEE STANDING BI (01/21/2025 10:31 AM EDT)Anatomical RegionLaterality ModalityRadiographic ImagingSpecimen (Source)Anatomical Location / Laterality Collection Method / VolumeCollection TimeReceived Time01/21/2025 10:31 AM EDT Narrative 01/21/2025 10:34 AM EDT [facility] ?[address] ? [place], [place] [address] ?XRay Report ? Signed ? Patient: SILVIO,АННА V ?MR#: [id number] ?? : 1960 ?Acct:[id number] ?? Age/Sex: 64 / F ?ADM Date: 01/21/25 ?? Loc: RAD ? Attending Dr: FRANNY SALAZAR ? Ordering Physician: FRANNY SALAZAR ?? Date of Service: 01/21/25 ?? Procedure(s): XR knee standing BI ?? Accession Number(s): [id number] ? cc: ERIKA ZEE ; FRANNY SALAZAR ? [facility] ? [address] ? [place] [address] ? Patient Name: ?? АННА AMAYA ? MRN: [facility]:[id number] ? date: 1960 ?Sex: F ?? Assigned Patient Location: RAD ?? Current Patient Location: RAD ?? Accession/Order Number: [id number] ?? Exam Date: 01/21/2025 ??09:30 ?Report Date: [...] M.D. ??01/21/2025 10:31 AM ? Dictation Location: [place] [address] ? Electronically authenticated by: [id number] ??Y ?? Date: 01/21/2025 ??10:31 ? Dictated By: ?Franny Mayberry M.D. ? Signed By: ?01/21/25 1034 ? DD/ 1031 ? TD/TT: ? Gastroenterology Technician: Procedure Note Radiology, Radiologist, MD - 01/21/2025 [place] [address] XRay Report Signed Patient: АННА AMAYA R#: [id number] : 1960cct:[id number] Age/Sex: 64 / FADM Date: 01/21/25 Loc: RAD Attending Dr: FRANNY SALAZAR Ordering Physician: FRANNY SALAZAR Date of Service: 01/21/25 Procedure(s): XR knee standing BI Accession Number(s): [id number] cc: ERIKA ZEE ; FRANNY SALAZAR The [address] [address] Patient Name: АННА AMAYA MRN: [id number] date: 1960 Sex: F Assigned Patient Location: [facility] Current Patient Location: [facility] Accession/Order Number: [id number] Exam Date: 01/21/2025 09:30 Report Date: 01/21/2025 [...] Mayberry M.D. 01/21/2025 10:31 AM Dictation Location: [place] [address] Electronically authenticated by: [id number] Y Date: 0:31 Dictated By: Franny Mayberry M.D. Signed By:01/21/25 1034 DD/ 1031 TD/TT: Gastroenterology Technician: Authorizing ProviderResult TypeResult StatusFranny Salazar [facility] XR PROCEDURES Final Result * XR knee 4+ views bilateral (01/21/2025 10:31 AM EDT)Anatomical Region LateralityModalityLower Extremities, KneeBilateralRadiographic ImagingSpecimen (Source)Anatomical Location / LateralityCollection Method / VolumeCollection TimeReceived Time01/21/2025 10:31 AM EDT Narrative 01/21/2025 10:34 AM EDT [facility] ?[address] ? [place] [address] ?XRay Report ? Signed ? Patient: SILVIO,АННА V ?MR#: [id number] ?? : 1960 ?Acct:[id number] ?? Age/Sex: 64 / F ?ADM Date: 01/21/25 ?? Loc: RAD ? Attending Dr: FRANNY SALAZAR ? Ordering Physician: FRANNY SALAZAR ?? Date of Service: 01/21/25 ?? Procedure(s): XR knee HOLLY 4V ?? Accession Number(s): [id number] ? cc: ERIKA ZEE ; FRANNY SALAZAR ? [facility] ? [address] ? [place] [address] ? Patient Name: ?? АННА AMAYA ? MRN: [facility]:[id number] ? date: 1960 ?Sex: F ?? Assigned Patient Location: RAD ?? Current Patient Location: RAD ?? Accession/Order Number: [id number] ?? Exam Date: 01/21/2025 ??09:30 ?Report Date: [...] M.D. ??01/21/2025 10:31 AM ? Dictation Location: [place] [address] ? Electronically authenticated by: [id number] ??Y ?? Date: 01/21/2025 ??10:31 ? Dictated By: ?Franny Mayberry M.D. ? Signed By: ?01/21/25 1034 ? DD/ 1031 ? TD/TT: ? Gastroenterology Technician: Procedure Note Radiology, Radiologist, - 01/21/2025 [place] [address] XRay Report Signed Patient: АННА AMAYA VMR#: [id number] : 1960cct:[id number] Age/Sex: 64 / FADM Date: 01/21/25 Loc: [facility] Attending Dr: FRANNY SALAZAR Ordering Physician: FRANNY SALAZAR Date of Service: 01/21/25 Procedure(s): XR knee HOLLY 4V Accession Number(s): [id number] cc: EIRKA ZEE ; FRANNY SALAZAR [place] [id number] Patient Name: АННА AMAYA MRN: [id number] date: 1960 Sex: F Assigned Patient Location: [facility] Current Patient Location: [facility] Accession/Order Number: [id number] Exam Date: 01/21/2025 09:30 Report Date: 01/21/2025 [...] Mayberry M.D. 01/21/2025 10:31 AM Dictation Location: [place] [address] Electronically authenticated by: [id number] Y Date: 0:31 Dictated By: Franny Mayberry M.D. Signed By:01/21/25 1034 DD/ 1031 TD/TT: Gastroenterology Technician: Authorizing ProviderResult TypeResult StatusFranny Salazar PAIMG XR PROCEDURES Final Result * (ABNORMAL) [facility] CMP (CMP) (FOR REMOTE COMMUNITY HEALTH USE) (01/16/2025 7:10 AM EDT) ComponentValueRef RangeTest MethodAnalysis TimePerformed AtPathologist SyjvkeqrrZBRQKV856737 - 145 mmol/LTBHPOTASSIUM3.53.5 - 5.1 mmol/LTBHCHLORIDE 94457 - 107 mmol/LTBHCARBON XAOOZPY54.421.0 - 32.0 mmol/LTBHANION GAP10.1TBH DTPUEFA047(H)74 - 106 mg/dLTBHBLOOD UREA QSZCGSUS18.07.0 - 18.0 mg/dLTBH CREATININE1.020.55 - 1.02 mg/dLTBHTBH EGFR-AF ICELANDIC>60>=60 mL/min/1.73m 2 TBHTBH EGFR-NON AF YGNMBQVT37(L)>=60 mL/min/1.73m 2TBHBUN CREATININE RATIO13.7 TBHCALCIUM9.38.5 - 10.1 mg/dLTBHBILIRUBIN TOTAL0.30.2 - 1.0 mg/dLTBHASPARTATE AMINO TXCVFUDZWFN1835 - 37 U/LTBHALANINE NMCZXIKYYBHUCVBH7627 - 59 U/LTBH ALKALINE WFLKXERVSDE8585 - 116 U/LTBHTOTAL PROTEIN8.3(H)6.4 - 8.2 g/dLTBH ALBUMIN LEVEL3.53.4 - 5.0 g/dLTBHGLOBULIN4.8g/dLTBHALBUMIN GLOBULIN RATIO0.7 TBHSpecimen (Source)Anatomical Location / LateralityCollection Method / Volume Collection TimeReceived Time01/16/2025 7:10 AM EDT01/16/2025 7:11 AM EDT Narrative [facility] - 01/16/2025 8:01 AM EDT Authorizing ProviderResult TypeResult StatusFranny Martha Hemmer PACLINISYNCFinal ResultPerforming OrganizationAddressCity/State/ZIP CodePhone Number [facility] * ALL THYROXINE (T4) FREE (01/16/2025 7:10 AM EDT)ComponentValueRef RangeTest MethodAnalysis TimePerformed AtPathologist SignatureFREE T41.320.76 - 1.46 ng/dLTBHSpecimen (Source)Anatomical Location / LateralityCollection Method / VolumeCollection TimeReceived Time01/16/2025 7:10 AM EDT01/16/2025 7:11 AM EDT Narrative [facility] - 01/16/2025 8:26 AM EDT Authorizing ProviderResult TypeResult StatusCorewell Health [facility] Martha Hemmer PACLINISYNCFinal ResultPerforming OrganizationAddressty/State/ZIP CodePhone Number [facility] TB * (ABNORMAL) ALL LIPID PROFILE (FASTING) (01/16/2025 7:10 AM EDT)ComponentValue Ref RangeTest MethodAnalysis TimePerformed AtPathologist Signature GYFWFECRKIVPK76<=150 mg/vWDHAITBIZJKTGMA061<=200 mg/dLTBHHDL UJVZWIDCXNN95(H) 40 - 60 mg/dLTBHComment: > or =60 mg/dl - LOW CARDIOVASCULAR RISK <40 mg/dl - HIGH CARDIOVASCULAR RISK LDL CHOLESTEROL LXDGQAFQUW65.0mg/dLTBHComment: <100 mg/dl OPTIMAL 100-129 mg/dl NEAR OR ABOVE OPTIMAL 130-159 mg/dl BORDERLINE HIGH 160-189 mg/dl HIGH >190 mg/dl VERY HIGH VLDL EPRAMIXQGKO30.2mg/dLTBHCHOL HDL RATIO2.4TBHComment: 3.3 - 4.4 ?? LOW RISK 4.4 - 7.1 ?? AVERAGE RISK 7.1 - 11.0 ??MODERATE RISK >11.0 HIGH RISK Specimen (Source)Anatomical Location / LateralityCollection Method / Volume Collection TimeReceived Time01/16/2025 7:10 AM EDT01/16/2025 7:11 AM EDT Narrative [facility] - 01/16/2025 8:01 AM EDT Authorizing ProviderResult TypeResult StatusFranny Thomas Hemmer PACLINISYNCFinal ResultPerforming OrganizationAddressCity/State/ZIP CodePhone Number [facility] * (ABNORMAL) ALL CBC WITH AUTO DIFF (01/16/2025 7:10 AM EDT)ComponentValueRef RangeTest MethodAnalysis TimePerformed AtPathologist SignatureTB WBC7.04.0 - 11.0 10 3/uLTBHTBH RBC4.264.20 - 5.40 10 6/uLTBHTBH HGB12.712.0 - 16.0 g/dLTBH [facility] HCT38.536.0 - 48.0 %TBHT MCV90.481.0 - 99.0 fLTBHTB MCH29.826.7 - 34.0 pgTBHTBH MCHC33.029.9 - 35.2 g/dLTBJ.[facility]. [facility] RDW14.311.0 - 15.0 %TBHT KKN005064 - 450 10 3/uLTBHTBH MPV8.8(L)9.5 - 13.5 [...] EDT Narrative 11/06/2024 11:15 AM EDT [facility] ?[address] ? [place] [address] ? Mammography Report ? Signed ? Patient: SILVIO,АННА V ?MR#: [id number] ?? : 1960 ?Acct:[id number] ?? Age/Sex: 64 / F ?ADM Date: 07/16/25 ?? Loc: MAMMO ? Attending Dr: ERIKA ZEE ? Ordering Physician: ERIKA ZEE ? Results: ? Date of Service: 07/16/25 ?Follow Up: ? Procedure(s): MM tomosynthesis screening BI ?? Accession Number(s): [id number] ? cc: ERIKA ZEE ? Patient Name: ? АННА AMAYA ? MR#: [id number] ? : 1960 ? Exam Date: 11/06/2024 [...] Cancers ? None ? LOCATION: ? [facility] ? BREAST COMPOSITION: ? The breasts are [...] 1115 ? DD/ 1114 ? TD/TT: ? Gastroenterology Technician: Procedure Note Radiology, Radiologist, MD - 11/06/2024 [place] [address] Mammography Report Signed Patient: АННА AMAYA VMR#: [id number] : 1960cct:[id number] Age/Sex: 64 / FADM Date: 11/06/24 Loc: MAMMO Attending Dr: ERIKA ZEE Ordering Physician: Adrien ZEEults: Date of Service: 11/06/24Follow Up: Procedure(s): MM tomosynthesis screening BI Accession Number(s): [id number] cc: ERIKA ZEE Patient Name: АННА AMAYA MR#: [id number] : 1960 Exam Date: 11/06/2024 Ordering Doctor: [...] Treatments None Family Cancers None LOCATION: [facility] BREAST COMPOSITION: The breasts are almost entirely [...] M.D. Signed By:11/06/24 1115 DD/ 1114 TD/TT: Gastroenterology Technician: Authorizing ProviderResult TypeResult StatusErika Zee MDCLINISYNC IMAGING Final Result * Colonoscopy (11/21/2018 12:00 PM EDT)Anatomical RegionLateralityModality EndoscopySpecimen (Source)Anatomical Location / LateralityCollection Method / VolumeCollection TimeReceived Time11/21/2018 12:00 PM EDT Narrative 11/21/2018 12:00 PM EDT PERFORMED AT [facility] LOCATION:[id number] Normal Procedure Note CONVERSION, GENERIC - 09/07/2022 PERFORMED AT [facility] LOCATION:[id number] Normal Authorizing ProviderResult TypeResult StatusErika Zee MDENDOSCOPY PROCEDURE ORDERABLESFinal Result from Last 3 Months or Most Recently Relevant to Health Maintenance Insurance [address] [place] [address] Care Teams Team MemberRelationshipSpecialtyStart DateEnd Date Erika Zee MD [address] [facility] [address] [place] [address] PCP - GeneralFamily Medicine11/15/22 Humera Fontenot LPN [address] [place] [address] 07/12/24
== END 2025-04-10 09:45 | disposition home or self-care (01) ==
LOC: FHNEUROLOG 09:45
PROVIDERS: PCP Family Medicine; Visit Provider Psychiatry & Neurology Neurology
DX: G47.33 Obstructive sleep apnea (adult) (pediatric) (principal)
CPT/HCPCS: G0463